=== PATIENT | female | born 1955 | race Caucasian/White ===

== ENCOUNTER 2018-09-26 10:34 | Outpatient (CLI) | payer MEDICARE, SELFPAY ==
[2018-09-26 13:27] LABS: Hemoglobin A1C 6.2 % (4.5-6.2)
[2018-09-29 11:23] LABS: IgA 185 mg/dL (85-499); Interpretation SEE COMMENTS; Tissue Transglutaminase IgA <1.2 U/mL (<4.0)
== END 2018-09-26 10:54 ==
PROVIDERS: PCP Emergency Medicine; Visit Provider Emergency Medicine
DX: E11.9 Type 2 diabetes mellitus without complications (principal); R10.13 Epigastric pain
CPT/HCPCS: 36415; 82784; 83516; 83036

== ENCOUNTER → 2018-12-11 10:38 | Outpatient (BNVA) | payer MEDICARE, SELFPAY | PROVIDERS: PCP Emergency Medicine; Referring Provider Emergency Medicine; Visit Provider Surgery | DX: K59.04 Chronic idiopathic constipation (principal) | CPT/HCPCS: 99212; 99214 ==

== ENCOUNTER → 2019-01-12 08:21 | Outpatient (BNVA) | payer MEDICARE, SELFPAY | PROVIDERS: PCP Emergency Medicine; Referring Provider Emergency Medicine; Visit Provider Surgery | DX: R69 Illness, unspecified (principal) ==

== ENCOUNTER 2019-01-12 09:22 | Outpatient (CLI) | payer MEDICARE, SELFPAY ==
[2019-01-12 09:56] LABS: HCT 41.7 % (36.0-46.0); Mean Corp. HGB Concentration 33.6 g/dL (32.0-36.0); Mean Corpuscular Hemoglobin 28.7 pg (27.0-33.0); Mean Corpuscular Volume 85.5 fL (80-95); Mean Platelet Volume 10.2 fL (8.0-11.0); Platelet Count 286 x1000/uL (130-400); RBC 4.88 m/cumm (4.00-5.20); White Blood Cell Count 7.15 k/cumm (4.4-10.8)
[2019-01-12 10:40] LABS: Anion Gap 10.5 mmol/L (3-11); BUN 16 mg/dL (7-18); CO2 28.5 mmol/L (21.0-32.0); CREATININE 0.82 mg/dL (0.55-1.02); Calcium 8.9 mg/dL (8.5-10.1); Chloride 101 mmol/L (98-107); Glucose 121 mg/dL (70-100); Potassium 3.8 mmol/L (3.5-5.1); Sodium 140 mmol/L (136-145)
== END 2019-01-12 09:42 ==
PROVIDERS: PCP Emergency Medicine; Visit Provider Surgery
DX: K59.00 Constipation, unspecified (principal); Z80.0 Family history of malignant neoplasm of digestive organs; Z86.010 Personal history of colon polyps
CPT/HCPCS: 36415; 80048; 85027; 99212

== ENCOUNTER 2019-01-26 07:26 | Outpatient (CLI) | payer MEDICARE, SELFPAY | END 2019-01-26 07:46 | PROVIDERS: PCP Emergency Medicine; Visit Provider Surgery | DX: Z01.810 Encounter for preprocedural cardiovascular examination (principal) | CPT/HCPCS: 93005; 93010 ==

== ENCOUNTER 2019-01-30 06:57 | Day surgery (SDC) | payer MEDICARE, SELFPAY ==
[2019-01-30 07:11] VITALS: BP 143/104; PULSE 105; RESP 18; TEMP 36.7; O2SAT 94
[2019-01-30] MEDS: Lactated Ringers 1,000 ML 80 ML IV (07:45)
--- NOTE | 2019-01-30 08:32 | BOWEL_PTH ---
PATIENT: Genoveva Peña LOC: [facility] U#:[id number] AGE/SX: 63/F ROOM: RE01/30/[address]: Cecy Carlson : 1955 BED: DIS: 01/30/2019 SPEC #: [id number] RECD: 01/30/19 12:43 STATUS: NICOLE REQ #: [id number] ROSS: 01/30/19 08:[address]: Cecy Carlson DEPT: Surgical Specimen RECD BY: Estefany Aldrich ENTERED: 01/30/19 12:46 SP TYPE: Bowel OTHR DR: Alireza Ojeda DO Tissues: 1 - BIOPSY BOWEL 2 - BIOPSY BOWEL 3 - BIOPSY BOWEL Procedures: GROSS AND MICRO LEVEL 4 Comments: [id number]
--- NOTE | 2019-01-30 08:46 | W.COLOREPORT ---
Date of service: 01/30/19 Time of Service: 08:46 Colonoscopy Report Date of procedure: 01/30/19 Pre-op diagnosis general: A. polyps. 1st degree famly member w/ CRC /celiac Dx./Constipation Post-op diagnosis procedure note: same Procedure: CE and bx Surgeon: Cecy Carlson Anesthesia proc note operative: GETA Estimated blood loss (mL): 2 Pathology: other Complications: None Disposition: same day Prep: Miralax Retraction Time: 10 mins Findings: nl Procedure Description: After informed consent was obtained the patient was taken to the procedure room and placed in a left decubitous position. Monitors were applied and a time out was done. The patients name, date of , procedure, allergies to medications and metal in their body was reviewed. The patient was then sedated. Once sedated and comfortable a rectal exam was done. External exam was normal. Internal exam revealed a normal sphincter tone and no palpable masses. The scope was then introduced and retroflexed. no internal hemorrhoids were identified. The scope was then advanced to the cecum w/out difficulty. The TI and appendiceal orifice were identified. The prep was good. The scope was then slowly retracted over 10 minutes back into the rectum. The scope was removed and the patient was woken up and taken back to Same day surgery in stable condition. There are no polyps/AVM's/diverticula. The mucosal and vascular pattern appear nl. Bx were taken of cecum/40cm/descending/rectum. all specimen and retrieved and no bleeding noted. The patient tolerated the procedure well and there were no immediate complications. Follow up: The patient should follow up in 5 years unless they develop changes in bowel habits or other new gastrointestinal complaints. Pt has been having significant problems w/ constipation. Fiber supplements made her feel gasey and bloated and didn't help. She has tried dulcolax, (which didn't help) and other cathartics. Miralax bothered her stomach and she couldn't tolerate it. I wrote Rx for lactulose today and will try this.
--- NOTE | 2019-01-30 08:56 | W.PM.DSUDISC ---
Discharge Plan Disposition Patient Disposition: HOME Condition: Good Discharge Details Attending Provider: Cecy Carlson Primary Care Provider: Alireza Ojeda Home Meds and New Rx's Prescriptions: New hydrocortisone 2.5 % cream 1 applic TP BID-QID PRN (Reason: rash) Qty: 30 RF: 5 lactulose 10 gram/15 mL solution 10 gm PO DAILY PRN (Reason: constipation) Qty: 500 RF: 6 Continued clobetasol 0.05 % cream 1 applic TP ONCE PRNRF: 0 terbinafine HCl [Lamisil AT] 1 % cream 1 applic TP BID PRNRF: 0 aspirin [Aspirin Low-Strength] 81 MG tablet,chewable 81 mg PO DAILY RF: 0 duloxetine [Cymbalta] 60 MG capsule,delayed release(DR/EC) 60 mg PO DAILY Qty: 90 RF: 4 pravastatin 40 mg tablet 40 mg PO DAILY Qty: 90 RF: 4 omeprazole 40 mg capsule,delayed release(DR/EC) 40 mg PO DAILY Qty: 90 RF: 4 doxepin 10 mg capsule 10 mg PO HS RF: 0 Discharge Instructions Instructions: High Fiber Diet (GEN) Additional Instructions: Findings:normal Bx taken No ASA/NSAIDs for 10 days- Bx taken. tylenol is fine. Follow up: repeat scope in 5 yrs time due to family Hx will send a letter w/ Bx results Please call if you develop: fevers >101.5 Nausea or Vomiting Abdominal pain that is not transient DAY SURGERY UNIT POST COLONOSCOPY INSTRUCTIONS 1. Because there will be medication in your system for the next 24 hours, you may feel a little sleepy. Your coordination will be affected. Therefore: a. Do not drive or operate dangerous equipment for 24 hours. b. Do not drink alcohol beverages for 24 hours (not even beer). c. Plan to go home and rest for the day. 2. Generally there are no restrictions on your activity after a day or so has gone by, but you may feel a bit fatigued for a few days. 3 After you arrive home you may have a light meal and return to a normal diet as you can tolerate it without feeling sick to your stomach. 4. After surgery, you may feel pain or discomfort. This should be only transient, but if it persists please contact your doctor. 5. If there are any questions regarding the findings of your procedure, please feel free to contact your doctor. 6. If you are unable to contact your doctor with a problem, contact the hospital at [phone]. 7. Continue all your regular medications unless directed otherwise. I understand the above instructions and have no questions. Signature of Patient or Responsible Adult Escort Date/Time Name of Responsible Adult Escort Signature of Nurse Date/Time Stand Alone Forms: Colonoscopy Post Instructions, Moy Parham (DSU) Activity:: no strenuous acitivty or heavy liting x 24 hrs Diet:: sm lt meals today. than transition to high fiber diet Discharge Orders Discharge Orders: Discharge Order (Routine); Ordered 01/30/19 Ordered By: Cecy Carlson DS: Diagnosis Discharge Diagnosis (1) Tubular adenoma of colon: Status: Acute (2) Skin sensation disturbance: Status: Acute (3) Constipation by delayed colonic transit: Status: Acute (4) Family history of colon cancer: Status: Acute (5) Celiac disease: Status: Chronic
[2019-01-30 09:20] VITALS: BP 129/88; PULSE 79; RESP 16; TEMP 36.4; O2SAT 94
== END 2019-01-30 09:40 | disposition home or self-care (01) ==
PROVIDERS: PCP Emergency Medicine; Visit Provider Surgery
PROC: 0DJD8ZZ Inspection of Lower Intestinal Tract, Via Natural or Artificial Opening Endoscopic (ICD-10-PCS; CPT 45378; principal; 2019-01-30 08:15)
DX: K59.00 Constipation, unspecified (principal); K90.0 Celiac disease; Z80.0 Family history of malignant neoplasm of digestive organs; Z86.010 Personal history of colon polyps; G47.33 Obstructive sleep apnea (adult) (pediatric); K21.9 Gastro-esophageal reflux disease without esophagitis
CPT/HCPCS: 45380; 88305

== ENCOUNTER 2019-06-03 08:48 | Outpatient (CLI) | payer MEDICARE, SELFPAY ==
--- NOTE | 2019-06-03 08:27 | DI.RAD_ITS ---
SYMPTOMS/DIAGNOSIS: RIGHT SHOULDER PAIN RIGHT SHOULDER: There is mild spurring at the AC joint and undersurface of the acromion, as well as glenoid. Glenohumeral joint space is well maintained. No tendon or joint space calcifications are seen. IMPRESSION: Mild degenerative changes.
== END 2019-06-03 09:08 ==
PROVIDERS: PCP Emergency Medicine; Referring Provider Emergency Medicine; Visit Provider Student in an Organized Health Care Education/Training Program
DX: M25.511 Pain in right shoulder (principal); M19.011 Primary osteoarthritis, right shoulder; S46.011A Strain of muscle(s) and tendon(s) of the rotator cuff of right shoulder, initial encounter; X58.XXXA Exposure to other specified factors, initial encounter; M54.12 Radiculopathy, cervical region; M75.21 Bicipital tendinitis, right shoulder
CPT/HCPCS: 99203; 99214; 73030

== ENCOUNTER → 2019-07-22 08:05 | Outpatient (BNVA) | payer MEDICARE, SELFPAY | PROVIDERS: PCP Emergency Medicine; Referring Provider Emergency Medicine; Visit Provider Student in an Organized Health Care Education/Training Program | DX: M25.511 Pain in right shoulder (principal); S46.011D Strain of muscle(s) and tendon(s) of the rotator cuff of right shoulder, subsequent encounter; X58.XXXD Exposure to other specified factors, subsequent encounter | CPT/HCPCS: 99213 ==

== ENCOUNTER 2020-05-13 14:08 | Outpatient (CLI) | payer MEDICARE, SELFPAY ==
--- NOTE | 2020-05-13 10:09 | DI.RAD_ITS ---
EXAM: XR FOOT LT COMPLETE CLINICAL HISTORY: contusion to foot lt, S90.32XA. TECHNIQUE: 2D digital imaging was performed. COMPARISON: No exams were available for comparison FINDINGS: BONES: No acute fracture is present. No bony destructive lesion is seen. JOINTS: No dislocation present. Yeuo-ju-eedtpugk degenerative changes are seen in the foot characteri zed by joint space narrowing, subchondral sclerosis and periarticular spurring. SOFT TISSUE: Normal. IMPRESSION: No acute fracture or dislocation. DATA REPOSITORY: RADIATION DOSE DELIVERED:
== END 2020-05-13 14:28 ==
PROVIDERS: PCP Emergency Medicine; Visit Provider Nurse Practitioner
DX: S90.32XA Contusion of left foot, initial encounter (principal)
CPT/HCPCS: 73630

== ENCOUNTER 2020-06-01 09:40 | Outpatient (CLI) | payer MEDICARE, SELFPAY ==
--- NOTE | 2020-06-01 09:22 | DI.RAD_ITS ---
EXAM: XR FOOT LT COMPLETE CLINICAL HISTORY: left foot pain. TECHNIQUE: 2D digital imaging was performed. COMPARISON: CR XR FOOT LT COMPLETE from 05/13/2020 FINDINGS: Hgyx-ma-wijgtysb degenerative changes are seen in the left characterized by joint space narrowing, adams bchondral sclerosis and periarticular spurring. The findings are most marked at the interphalangeal joints of the foot. There is a small spur at the plantar surface of the calcaneus. There is a large enthesophyte at the posterior calcaneus. No acute fracture or dislocation is seen. The soft tissue s are unremarkable. IMPRESSION: Degenerative changes of the left foot. DATA REPOSITORY: RADIATION DOSE DELIVERED:
== END 2020-06-01 10:00 ==
PROVIDERS: PCP Emergency Medicine; Referring Provider Emergency Medicine; Visit Provider Student in an Organized Health Care Education/Training Program
DX: M19.072 Primary osteoarthritis, left ankle and foot (principal); S90.32XA Contusion of left foot, initial encounter; X58.XXXA Exposure to other specified factors, initial encounter; M25.511 Pain in right shoulder; M79.641 Pain in right hand; M79.642 Pain in left hand
CPT/HCPCS: 99214; 73630

== ENCOUNTER → 2020-07-20 10:07 | Outpatient (BNVA) | payer MEDICARE, SELFPAY | PROVIDERS: PCP Emergency Medicine; Referring Provider Emergency Medicine; Visit Provider Student in an Organized Health Care Education/Training Program | DX: M70.62 Trochanteric bursitis, left hip; S90.32XD Contusion of left foot, subsequent encounter; X58.XXXD Exposure to other specified factors, subsequent encounter | CPT/HCPCS: 99214 ==

== ENCOUNTER 2020-11-08 02:01 | Outpatient (CLI) | payer MEDICARE, SELFPAY ==
[2020-11-09 15:18] LABS: COVID-19 RT-PCR UVMMC Result Negative (Negative)
== END 2020-11-08 02:02 | disposition home or self-care (01) ==
LOC: LBO 02:01
PROVIDERS: PCP Emergency Medicine; Visit Provider Nurse Practitioner
DX: Z20.822 Contact with and (suspected) exposure to COVID-19 (principal); Z01.818 Encounter for other preprocedural examination
CPT/HCPCS: U0003; U0005

== ENCOUNTER 2020-12-09 02:46 | Outpatient (CLI) | payer MEDICARE, SELFPAY ==
[2020-12-09 12:50] LABS: Ferritin 30 ng/mL (8-252)
== END 2020-12-09 02:47 | disposition home or self-care (01) ==
LOC: LBO 02:46
PROVIDERS: PCP Emergency Medicine; Visit Provider Nurse Practitioner
DX: M25.561 Pain in right knee (principal)
CPT/HCPCS: 36415; 82728

== ENCOUNTER 2021-01-02 14:50 | Outpatient (REF) | payer MEDICARE, SELFPAY ==
[2021-01-04 18:07] LABS: COVID-19 RT-PCR UVMMC Result Negative (Negative)
== END 2021-01-02 14:51 | disposition home or self-care (01) ==
LOC: LBN 14:50
PROVIDERS: PCP Emergency Medicine; Visit Provider Family Medicine
DX: Z20.822 Contact with and (suspected) exposure to COVID-19 (principal); J06.9 Acute upper respiratory infection, unspecified
CPT/HCPCS: U0003

== ENCOUNTER 2021-01-18 02:59 | Outpatient (CLI) | payer MEDICARE, SELFPAY ==
[2021-01-18 13:25] LABS: Hemoglobin A1C 5.6 % (<5.7)
[2021-01-18 13:26] LABS: ALT 39 U/L (14-59); AST 36 U/L (15-37); Albumin 3.6 g/dL (3.4-5.0); Alkaline Phosphatase 88 U/L (46-116); Anion Gap 5.2 mmol/L (3-11); BUN 19 mg/dL (7-18); Bilirubin, Total 0.3 mg/dL (0.2-1.0); CO2 30.8 mmol/L (21.0-32.0); CREATININE 0.8 mg/dL (0.55-1.02); Calcium 8.4 mg/dL (8.5-10.1); Calculated LDL 108 mg/dL (<100); Chloride 107 mmol/L (98-107); Cholesterol 181 mg/dL (<200); Glucose 94 mg/dL (74-106); HDL Cholesterol 53 mg/dL (40-60); Sodium 143 mmol/L (136-145); Total Protein 7.8 g/dL (6.4-8.2); Triglyceride 104 mg/dL (<150)
== END 2021-01-18 03:00 | disposition home or self-care (01) ==
LOC: LOS 03:00
PROVIDERS: PCP Emergency Medicine; Visit Provider Nurse Practitioner Family
DX: E78.5 Hyperlipidemia, unspecified (principal); R73.03 Prediabetes
CPT/HCPCS: 36415; 80053; 80061; 83036

== ENCOUNTER 2021-04-28 03:06 | Outpatient (CLI) | payer MEDICARE, SELFPAY ==
[2021-04-28 08:54] LABS: Ferritin 60 ng/mL (8-252)
== END 2021-04-28 03:07 | disposition home or self-care (01) ==
LOC: LBO 03:06
PROVIDERS: PCP Nurse Practitioner Family; Visit Provider Nurse Practitioner
DX: M25.561 Pain in right knee (principal)
CPT/HCPCS: 36415; 82728

== ENCOUNTER 2021-06-08 01:33 | Outpatient (CLI) | payer MEDICARE, SELFPAY ==
--- NOTE | 2021-06-08 08:45 | DI.DEXA_ITS ---
Exam(s) XR DEXA BONE DENSITY W/WO JOAN EXAM: XR DEXA BONE DENSITY W/WO JOAN CLINICAL HISTORY: Osteopenia, last dexa 2008,SCREENING FOR OSTEOPOROSIS IN POSTMENOPAUSAL TECHNIQUE: Routine DEXA evaluation of the lumbar spine, hip, or forearm. COMPARISON: CR LUMBAR SPINE COMPLETE from 11/06/2011 Prior DEXA scan August 2009 FINDINGS: Performed on a [employer] unit. Lateral image: No compression fracture evident. Lumbar Spine total T-score: -1.2 . Prior 2008 reading was -1.0 Hip total T-score:-2.1. Prior 2008 reading was -1.8 Independent reading at the femoral neck level yields a T-score of -2.2. Forearm total T-score: -3.1 IMPRESSION: Bone mineral density measures in the osteopenia-osteoporosis range. Fracture risk is moderate-high. Note: Any spine fracture indicates 5x risk for subsequent spine fracture and 2x risk for subsequent h ip fracture. World Health Organization criteria for BMD interpretation classify patients: Normal...... T- Score at or above -1.0 Osteopenic... T- Score between -1.0 and -2.5 Osteoporosis... T-Score at or below -2.5
--- NOTE | 2021-06-08 08:45 | DI.MAMMO_ITS ---
Exam(s) MAMMO SCREENING EXAM: MAMMO SCREENING CLINICAL HISTORY: screening,Z12.39. TECHNIQUE: Bilateral full field digital CC and MLO mammographic images were obtained with 3D tomosyn thesis and utilizing computer aided detection (CAD). COMPARISON: Prior mammograms dating back to 2011, the most recent being 2017. Significant family history. Her sister was diagnosed with breast cancer in her 40s. FINDINGS: Benign-appearing lymph nodes in the upper-outer quadrant of the left breast are unchanged from prior studies. There are no new spiculated masses nor malignant appearing microcalcification groups. There is no significant architectural distortion nor skin thickening-retraction. IMPRESSION: No radiographic evidence of malignancy. BI-RADS Category 1 - Negative Breast Density - Category B - Scattered areas of fibroglandular density Breast density Category C or D implies that the patient has dense breast tissue. Dense breast tissue can make it harder to find cancer on a mammogram. Dense breast tissue is also associated with an incr eased risk of breast cancer. This information about the result of the mammogram report was provided to the patient to raise their awareness. Use this report when you speak with the patient about their risks for breast cancer, which includes their family history. At that time, you may recommend additional screening tests (Ultrasoun d or MRI) as these tests may add significant information. A negative radiographic report should not delay biopsy if a dominant or clinically suspicious mass is present. Up to ten percent of cancers are not identified on mammography. A negative report may reinforce clinical impression. Adenosis and dense breasts may obscure an underlying neoplasm. False positive reports average 6 to 10%. Patient will receive a letter notifying them of these results.
== END 2021-06-08 01:53 ==
PROVIDERS: PCP Nurse Practitioner Family; Visit Provider Nurse Practitioner Family
DX: M85.89 Other specified disorders of bone density and structure, multiple sites (principal); Z78.0 Asymptomatic menopausal state; Z12.31 Encounter for screening mammogram for malignant neoplasm of breast; M81.0 Age-related osteoporosis without current pathological fracture
CPT/HCPCS: 77063; 77067; 77080

== ENCOUNTER 2022-01-02 15:37 | Outpatient (REF) | payer OTHER, SELFPAY ==
[2022-01-12 10:21] LABS: Fungus Smear No Fungi Seen
== END 2022-01-02 15:38 | disposition home or self-care (01) ==
LOC: LBN 15:37
PROVIDERS: PCP Nurse Practitioner Family; Visit Provider Family Medicine
DX: B37.0 Candidal stomatitis (principal)
CPT/HCPCS: 87102; 87206

== ENCOUNTER 2022-01-29 02:31 | Outpatient (CLI) | payer OTHER, SELFPAY ==
[2022-01-29 12:27] LABS: HCT 40.9 % (36.0-46.0); HGB 13.3 g/dL (11.2-15.7); MCH 28.1 pg (27.0-33.0); MCHC 32.5 % (32.0-36.0); MCV 87 fL (80-95); MPV 10.2 fL (8.0-11.0); Platelet Count 244 10^3/uL (130-400); RBC 4.73 10^6/uL (3.93-5.22); RDW 12.9 % (11.7-14.6); RDW-SD 40.8 fL; WBC 8.13 10^3/uL (4.4-10.8)
[2022-01-29 13:43] LABS: ALT 81 U/L (14-59); AST 63 U/L (15-37); Albumin 3.8 g/dL (3.4-5.0); Alkaline Phosphatase 111 U/L (46-116); Anion Gap 7.9 mmol/L (3-11); BUN 16 mg/dL (7-18); Bilirubin, Total 0.3 mg/dL (0.2-1.0); CO2 29.1 mmol/L (21.0-32.0); CREATININE 0.8 mg/dL (0.55-1.02); Calcium 8.6 mg/dL (8.5-10.1); Calculated LDL 117 mg/dL (<100); Chloride 103 mmol/L (98-107); Cholesterol 204 mg/dL (<200); Glucose 105 mg/dL (74-106); HDL Cholesterol 59 mg/dL (40-60); Potassium 4.4 mmol/L (3.5-5.1); Sodium 140 mmol/L (136-145); TSH (W/Ref FT4) 0.83 uIU/mL (0.36-3.74); Total Protein 8.3 g/dL (6.4-8.2); Triglyceride 141 mg/dL (<150)
[2022-01-30 10:41] LABS: HIV-1/2 Ag & Ab Screen Negative (Negative)
[2022-01-30 10:51] LABS: Hepatitis C Ab w Rflx HCV PCR Negative (Negative)
== END 2022-01-29 02:32 | disposition home or self-care (01) ==
LOC: LBO 02:31
PROVIDERS: PCP Nurse Practitioner Family; Visit Provider Family Medicine
DX: B37.0 Candidal stomatitis (principal); E78.5 Hyperlipidemia, unspecified; K90.0 Celiac disease; R53.83 Other fatigue; Z11.59 Encounter for screening for other viral diseases; Z13.6 Encounter for screening for cardiovascular disorders; I10 Essential (primary) hypertension; Z11.4 Encounter for screening for human immunodeficiency virus [HIV]
CPT/HCPCS: 36415; 80053; 80061; 85027; 86803; 87102; 87206; 87389; 84443

== ENCOUNTER 2022-03-22 10:31 | Emergency (ER) | payer OTHER, SELFPAY ==
[2022-03-22] VITALS (37 sets, daily range): BP systolic 119–153; BP diastolic 45–86; PULSE 47–94; RESP 0–34; TEMP 36.5–37.3; O2SAT 95–99
--- NOTE | 2022-03-22 11:00 | RT.EKG_ITS ---
APPROVED REPORT Exam: Resting ECG Reason for Exam: left sided arm pain Patient Location: E HR:59 bpm ECG Measurements Heart Rate 59 AXIS WY 184 P 38 QRSd 100 QRS -53 QT 438 T 25 QTc 435 Conclusion Bradycardia with irregular rate...V-rate 45- 72, mean < 60 LAD, consider left anterior fascicular block...axis(240,-40), S>R II III aVF Low voltage, precordial leads...precordial leads <1.0mV. Sinus with rate variation. No STEMI. I have reviewed and interpreted ECG and agree with software generated interpretation.
--- NOTE | 2022-03-22 11:00 | DI.CT_ITS ---
Exam(s) CT HEAD - STROKE PROTOCOL EXAM: CT HEAD - STROKE PROTOCOL CLINICAL HISTORY: left sided weakness. TECHNIQUE: Imaging Protocol: Axial computed tomography images with coronal and sagittal reformatted images were created and reviewed COMPARISON: CT HEAD WITHOUT CONTRAST from 10/30/2014 FINDINGS: Ventricles and Extra axial spaces: Normal in size and morphology for the patient's age. Hemorrhage: None. Cerebral parenchyma: Normal. Midline shift: None. Brainstem/Cerebellum: Normal. Calvarium: Normal. Visualized Paranasal sinuses/Mastoids: Clear. Soft Tissues: Unremarkable. IMPRESSION: No acute intracranial process. Results of this exam have been verbally communicated with emergency department provider. RADIATION DOSE DELIVERED: 743.43mGy.cm Total DLP DATA REPOSITORY: All CT scans at this facility are submitted to the National Radiology Data Registry (NRDR) Dose Index Registry (DIR) with the [employer] (ACR). RADIATION OPTIMIZATION: All CT scans at this facility use at least one of these dose optimization te chniques: automated exposure control; mA and/or kV adjustment per patient size (includes targeted exa ms where dose is matched to clinical indication); or iterative reconstruction.
--- NOTE | 2022-03-22 11:45 | DI.MRI_ITS ---
Exam(s) MR BRAIN WO EXAM: MR BRAIN WO CLINICAL HISTORY: Left sided weakness and headache TECHNIQUE: Multiplanar multisequence MRI of the brain was performed. COMPARISON: MR MRI - BRAIN WO CONTRAST from 11/22/2011 MR MRA HEAD WO from 11/22/2011 FINDINGS: VENTRICLES AND EXTRA AXIAL SPACES: Normal in size and morphology for the patient's age. MIDLINE SHIFT: None. CEREBRAL PARENCHYMA: No focus of restricted diffusion to suggest acute infarct. No space-occupying le marlene identified. Mild scattered high signal foci likely reflecting microvascular changes. HEMORRHAGE: None. BRAINSTEM/CEREBELLUM: Normal. CALVARIUM: Normal. VISUALIZED PARANASAL SINUSES/MASTOIDS:Clear. [place] [employer]: Normal flow void. PITUITARY GLAND: Unremarkable. IMPRESSION: Minimal white matter changes of small vessel disease. No evidence of acute infarct.. Results of this exam have been verbally communicated with emergency department provider. DATA REPOSITORY:
[2022-03-22 11:47] LABS: Abs Immature Grans 0.01 10^3/uL (0.0-0.06); Absolute Basophil Count 0.06 10^3/uL (0.0-0.2); Absolute Eosinophil Count 0.11 10^3/uL (0.0-0.7); Absolute Lymphocyte Count 3.15 10^3/uL (1.2-3.4); Absolute Monocyte Count 0.65 10^3/uL (0.1-0.8); Absolute Neutrophil Count 2.39 10^3/uL (1.2-6.7); Basophils % 0.9; Eosinophils % 1.7; HCT 42.2 % (36.0-46.0); HGB 13.7 g/dL (11.2-15.7); Immature Grans % 0.2; Lymphocytes % 49.5; MCH 28.1 pg (27.0-33.0); MCHC 32.5 % (32.0-36.0); MCV 87 fL (80-95); Monocytes % 10.2; Neutrophils % 37.5; RBC 4.87 10^6/uL (3.93-5.22); RDW-SD 41.1 fL; WBC 6.37 10^3/uL (4.4-10.8)
[2022-03-22 12:10] LABS: ALT 85 U/L (14-59); AST 76 U/L (15-37); Alkaline Phosphatase 89 U/L (46-116); Anion Gap 8.6 mmol/L (3-11); BUN 18 mg/dL (7-18); Bilirubin, Total 0.4 mg/dL (0.2-1.0); CO2 27.4 mmol/L (21.0-32.0); CREATININE 0.7 mg/dL (0.55-1.02); Calcium 8.9 mg/dL (8.5-10.1); Chloride 101 mmol/L (98-107); Glucose 78 mg/dL (74-106); Magnesium 2.1 mg/dL (1.8-2.4); Potassium 3.9 mmol/L (3.5-5.1); Sodium 137 mmol/L (136-145); Total Protein 8.4 g/dL (6.4-8.2); Troponin I < 50 ng/L (<or=60)
--- NOTE | 2022-03-22 12:21 | ED.GENADUL_ITS ---
Discharge Plan Disposition Patient Disposition: HOME Condition: Improving Discharge Details Clinical Impression: Left arm pain Primary Care Provider: Sanam Bennett ED Provider: Octavio Mcdermott Home Meds and New Rx's Prescriptions: No Action diclofenac sodium [Voltaren] 1 % gel 2 gm TP QID PRN Rx Instructions: apply to single elbow, wrist or hand; for hand includes palm/fingers/back of hand Shingrix (PF) 50 mcg/0.5 mL suspension for reconstitution 0.5 ml IM ONCE Qty: 1 0RF Rx Instructions: 2 doses 2 mo apart ropinirole 2 mg tablet 2 mg PO QHS clobetasol 0.05 % cream 1 applic TP DAILY PRN (Reason: rash) Qty: 30 0RF terbinafine HCl [Lamisil AT] 1 % cream 1 applic TP BID PRN aspirin [Aspirin Low-Strength] 81 MG tablet,chewable 81 mg PO DAILY baclofen 5 mg tablet 5 mg PO BID PRN (Reason: back pain) Qty: 60 0RF doxepin 10 mg capsule 10 mg PO HS Qty: 90 3RF ferrous sulfate 325 mg (65 mg iron) tablet 325 mg PO Q OTHER DAY Qty: 90 4RF Rx Instructions: Take 1 tablet every other day omeprazole 40 mg capsule,delayed release(DR/EC) 40 mg PO DAILY Qty: 90 4RF nystatin 100,000 unit/mL suspension 5 ml PO QID Qty: 200 0RF Rx Instructions: swish and swallow triamcinolone acetonide 0.5 % cream 1 applic topical BID Qty: 80 2RF pravastatin 40 mg tablet 40 mg PO DAILY Qty: 90 4RF duloxetine 60 mg capsule,delayed release(DR/EC) See Rx Instructions .ROUTE .COMPLEX Qty: 90 3RF Dose Instruction: TAKE 1 CAPSULE BY MOUTH DAILY Rx Instructions: TAKE 1 CAPSULE BY MOUTH DAILY Discharge Instructions Instructions: Arm Pain (ED) Additional Instructions: It is reassuring at this time that your CT and MRI were unremarkable along with your labs. Your urine did show subtle signs of a slight infection versus a contaminated specimen. We will contact you if this does look like an infection and you need any treatment. Otherwise please continue to take your normally prescribed medications and return to the emergency department for any new or significant worsening of your symptoms. I suspect your arm pain is not from a new stroke or neurological event that from lifting your elderly mother 2 days ago. If you do again have concerns feel free to return to emergency department or follow-up with your primary care provider for reassessment. Referrals: Sanam Bennett NP [Primary Care Provider] - Discharge Data Discharge Date/Time-TO BE ENTERED AT DEPARTURE: 03/22/22 15:58 Medical Decision Making Patient presenting to the emergency department for chief complaint of left arm discomfort. She states that this started yesterday evening at 730 and has been persistent since. She does state that she had some radiation of the discomfort from her upper arm into her lower arm and also into her leg. She states some left-sided abnormal sensation around her lips and some confusion. Patient denies any injury or trauma but does state this is similar to when she had previous TIAs. Physical exam does show weakness to the left upper extremity without full pronator drift, decreased senior accounting specialist strength, sensation and movement intact and no cranial nerve or other neurologic findings. I am concerned for TIA versus stroke. Patient is outside the window for thrombolytics but will co ntinue with CT imaging and MR imaging as needed. We will also check labs. Please see physician interpretation for review of EKG that shows sinus rhythm with no acute worrisome findings. Review of CT imaging shows no acute findings. Discussed with radiologist MR imaging which she agreed and orders were placed. Review of labs shows an unremarkable CBC, CMP shows slight elevation of AST and ALT were elevated but not far from baseline. Urinalysis shows positive nitrites and trace leukocytes with 5-10 WBCs. Patient denies any urinary symptoms so will wait on reflective culture before treating. Initial troponin is negative. Patient still pending MRI You have MRI imaging with radiologist shows no acute ischemic findings. Again reassessed patient and she stated continued left arm pain. Discussed with patient any potential injuries and she does state that the baby for symptoms started her mother did have a fall on the floor and she attempted to lift her from the floor which then she started to fall again. She states this aggravated her chronic back pain but did not seem to associate this with arm pain but is a possibility. Patient is now tender over the deep venous system of the upper arm so we will perform ultrasound imaging that we are pending second troponin. Given potential injury that is more muscular in nature will give patient ketorolac. Reviewed second troponin which was negative along with ultrasound imaging which is also negative. Reassessed patient and patient now has full resolution of symptoms, no weakness to upper extremities, no further pain or discomfort. Given no acute findings on any imaging or worrisome lab findings I suspect more occult injury versus TIA. Did discuss with patient close monitoring of symptoms along with return and follow-up precautions. Patient does state that she would prefer to go home and watch symptoms given history of TIA but question if today's episode was this or not. Patient states that she would prefer to go home and states clear understanding to return for new or worsening symptoms. After discussion of diagnosis and plan of care patient has no further needs, questions, or concerns and states clear understanding to return to the emergency department for any worsening symptoms. This documentation was generated using [employer] dictation system, please disregard any oddities of phrase or misspellings. Medical Records Medical records reviewed: Yes I reviewed the patient's medical records. Imaging Data Radiologic Study: Imaging: CT Scan Radiologist's impression: FINDINGS: Ventricles and Extra axial spaces: Normal in size and morphology for the patient's age. Hemorrhage: None. Cerebral parenchyma: Normal. Midline shift: None. Brainstem/Cerebellum: Normal. Calvarium: Normal. Visualized Paranasal sinuses/Mastoids: Clear. Soft Tissues: Unremarkable. IMPRESSION: No acute intracranial process. Results of this exam have been verbally communicated with emergency department provider. Radiologic Study #3: Imaging: Ultrasound Radiologist's impression: FINDINGS: The left internal jugular, axillary, subclavian, cephalic, basilic, brachial, radial, and ulnar veins are patent without evidence of thrombosis. IMPRESSION: No DVT. Radiologic Study #2: Imaging: MRI Radiologist's impression: FINDINGS: VENTRICLES AND EXTRA AXIAL SPACES: Normal in size and morphology for the patient's age. MIDLINE SHIFT: None. CEREBRAL PARENCHYMA: No focus of restricted diffusion to suggest acute infarct. No space-occupying lesion identified. Mild scattered high signal foci likely reflecting microvascular changes. HEMORRHAGE: None. BRAINSTEM/CEREBELLUM: Normal. CALVARIUM: Normal. VISUALIZED PARANASAL SINUSES/MASTOIDS:Clear. [place]: Normal flow void. PITUITARY GLAND: Unremarkable. IMPRESSION: Minimal white matter changes of small vessel disease. No evidence of acute infarct.. Results of this exam have been verbally communicated with emergency department provider. Lab Data Lab results reviewed: Yes I reviewed the patient's lab results. HPI General Mode of arrival: ambulatory . Date/Time Provider Initiated Documentation: 03/22/22 11:00 . Limitations to Documentation: no limitations . Information obtained by: patient and RN notes reviewed . History of Present Illness 67 year old F presents to the emergency department with the chief complaint of Left arm pain, described as moderate, with intensity rated at 6. Quality is described as aching, and is localized to the left and upper extremity. Patient distal. Patient started experiencing this day(s) (1) and it has been constant. No relieving factors improve symptom(s), Movement worsens symptoms . Patient notes no other symptoms. and weakness. Patient did receive the following treatments prior to arrival, none Related Data Home Medications Medication Instructions Recorded Confirmed aspirin 81 mg chewable tablet 81 mg PO DAILY 02/02/14 03/22/22 (Aspirin Low-Strength) terbinafine HCl 1 % topical cream 1 applic topical BID PRN 01/12/19 03/22/22 (Lamisil AT) diclofenac sodium 1 % topical gel 2 gm topical QID PRN 05/12/20 03/22/22 (Voltaren) ropinirole 2 mg tablet 2 mg PO QHS 02/10/21 03/22/22 varicella-zoster glycoE [id number] 0.5 ml IM ONCE #1 ea 02/10/21 01/02/22 adj(PF) 50 mcg/0.5 mL IM susp, kit (Shingrix (PF)) baclofen 5 mg tablet 5 mg PO BID PRN back pain #60 tabs 05/01/21 03/22/22 doxepin 10 mg capsule 10 mg PO HS #90 caps 06/21/21 03/22/22 ferrous sulfate 325 mg (65 mg 325 mg PO Q OTHER DAY #90 tabs 06/21/21 03/22/22 iron) tablet omeprazole 40 mg capsule,delayed 40 mg PO DAILY #90 tab-caps 06/30/21 03/22/22 release clobetasol 0.05 % topical cream 1 applic topical DAILY PRN rash 01/02/22 03/22/22 #30 grams nystatin 100,000 unit/mL oral 5 ml PO QID #200 mL 01/16/22 suspension triamcinolone acetonide 0.5 % 1 applic topical BID #80 grams 02/08/22 03/22/22 topical cream pravastatin 40 mg tablet 40 mg PO DAILY #90 tab-caps 03/02/22 03/22/22 duloxetine 60 mg capsule,delayed See Rx Instructions .Route 03/09/22 03/22/22 release .COMPLEX #90 caps Previous Rx's Medication Instructions Recorded varicella-zoster glycoE [id number] 0.5 ml IM ONCE #1 ea 02/10/21 adj(PF) 50 mcg/0.5 mL IM susp, kit (Shingrix (PF)) baclofen 5 mg tablet 5 mg PO BID PRN back pain #60 tabs 05/01/21 doxepin 10 mg capsule 10 mg PO HS #90 caps 06/21/21 ferrous sulfate 325 mg (65 mg 325 mg PO Q OTHER DAY #90 tabs 06/21/21 iron) tablet omeprazole 40 mg capsule,delayed 40 mg PO DAILY #90 tab-caps 06/30/21 release clobetasol 0.05 % topical cream 1 applic topical DAILY PRN rash 01/02/22 #30 grams nystatin 100,000 unit/mL oral 5 ml PO QID #200 mL 01/16/22 suspension triamcinolone acetonide 0.5 % 1 applic topical BID #80 grams 02/08/22 topical cream pravastatin 40 mg tablet 40 mg PO DAILY #90 tab-caps 03/02/22 duloxetine 60 mg capsule,delayed See Rx Instructions .Route 03/09/22 release .COMPLEX #90 caps Allergies Allergy/AdvReac Type Severity Reaction Status Date / Time lisinopril AdvReac Intermediate COUGH Verified 03/22/22 11:19 morphine AdvReac Intermediate Visual Verified 03/22/22 11:19 Disturbances gabapentin AdvReac nightmares Verified 03/22/22 11:19 General Stated Complaint: CVA/TIA LONI: 3 Review of Systems Constitutional Constitutional: Denies chills, Denies fever(s), Reports headache(s), Denies lethargy and Denies malaise Eyes Eyes: Denies change in vision ENT Ears, Nose, Mouth, and Throat: Denies change in voice, Denies dysphagia, Denies vertigo, Denies dizziness, Reports headache(s), Denies nasal congestion, Denies neck pain, Denies disequilibrium and Denies sore throat Cardiovascular Cardiovascular: Denies chest pain, Denies syncope and Denies dyspnea Respiratory Respiratory: Denies cough and Denies dyspnea Gastrointestinal Gastrointestinal: Denies abdominal pain, Denies dysphagia, Denies diarrhea, Denies nausea and Denies vomiting Musculoskeletal Musculoskeletal: Reports back pain (chronic), Denies myalgias and Denies neck pain Integumentary/Breasts Skin/Breast: Denies rash Neurologic Neurologic: Reports as per HPI, Denies vertigo, Denies dizziness, Denies syncope, Reports headache(s), Reports localized weakness, Denies radicular pain, Denies sensory deficit, Denies paresthesias and Denies disequilibrium Psychiatric Psychiatric: Denies anxiety PFSH All Active Problems Left arm pain (Acute) Elevated liver function tests (Acute) 01/2022-mildly elevated transaminases Obstructive sleep apnea syndrome (Chronic) Hyperlipidemia (Chronic) Celiac disease (Chronic) Depressive disorder (Chronic) Osteopenia (Chronic) Gastroesophageal reflux disease (Chronic) Primary fibromyalgia syndrome (Chronic) Osteoarthritis (Chronic) Insomnia (Chronic) Lichen sclerosus of vulva (Chronic) Constipation by delayed colonic transit (Chronic) Restless leg syndrome (Chronic) Medical History Basal cell carcinoma (BCC) of left religion region Essential hypertension Prediabetes Primary malignant neoplasm of ovary Found on pathology from [facility], oophrectomy done for AUB Tubular adenoma of colon 2015 Surgical History History of carpal tunnel surgery Bilateral History of esophagogastroduodenoscopy (EGD) Hx of cataract surgery S/P abdominal hysterectomy (~2005) S/P arthroscopy of right shoulder S/P bilateral oophorectomy (~2005) S/P cervical discectomy S/P cholecystectomy S/P colonoscopy S/P tubal ligation (~2001) Status post right partial knee replacement (~2003) Family History Mother Colon cancer Diabetes Heart disease Father Colon cancer Diabetes Dementia Sister No problems noted. Sister Breast cancer Pancreatic cancer Sister Hypertension Sister Essential thrombocytosis Daughter Endometriosis Maternal Grandfather Cancer Unknown type Maternal Grandmother Cancer Unknown type Paternal Grandfather Cancer Unknown type Paternal Grandmother Leukemia Social History Smoking/Tobacco Use Status: Never Smoking risk assessment performed?: Yes Alcohol Intake: never Drug use: Never Substance use type: does not use Current gender identity: female Duration: 15-30 minutes/day Frequency: 5-6 times per week Seatbelt use: always Do you feel safe at home: Yes Do you feel safe in your relationship?: Yes History History 3 Para 1 Hx # Term Pregnancies Multiple births Hx # Pregnancies Ectopic pregnancies AB induced Hx Number of Living Children 1 AB spontaneous 2 Exam Const General: cooperative, healthy appearing, no acute distress and well groomed Orientation: alert, awake and oriented x3 HENMT Head: normal to inspection Ears: hearing grossly normal bilaterally and TM's normal bilaterally Mouth: oral mucosae normal and moist mucous membranes Throat: posterior oropharynx normal Eyes Visual Santos: normal visual santos by confrontation Alignment and Position: alignment normal Periorbital: periorbital findings normal Eyelids: eyelids normal Sclera: sclerae normal Pupils: PERRL EOM: EOM intact bilaterally Neck Neck: normal visual inspection, full ROM and no meningeal signs Resp Effort & Inspection: normal respiratory effort and able to speak in complete sentences Auscultation: clear to auscultation bilaterally Cardio Rate: regular rate Rhythm: regular rhythm Heart Sounds: S1 normal and S2 normal Neuro General: patient alert, patient awake, patient oriented x3, gait normal, tone normal, moves all extremities, CN's II-XI intact bilaterally and not confused Cognition: normal cognition Speech: speech normal Motor: muscle tone normal throughout, strength 5/5 throughout, no pronator drift, no movement abnormalities noted and no fasciculations Sensory Exam: no sensory deficits noted Coordination: [id number] test normal, Romberg test normal, Does not sway with eyes open, rapid alternating movement UE normal and rapid alternating movement LE normal Course Vital Signs Vital signs: Vital Signs Temperature 37.3 C 03/22/22 10:53 Pulse 60 03/22/22 10:53 Respiratory Rate 16 03/22/22 10:53 Blood Pressure 137/72 03/22/22 10:53 Pulse Oximetry 98 03/22/22 10:53 Temperature 37.3 C 03/22/22 10:53 Pulse 60 03/22/22 10:53 Respiratory Rate 16 03/22/22 11:02 Respiratory Effort 06/23/22 11:02 Respiratory Depth Normal 03/22/22 11:02 Respiratory Pattern Normal 03/22/22 11:02 Blood Pressure 137/72 03/22/22 10:53 Pulse Oximetry 98 03/22/22 10:53 Oxygen Delivery Method Room Air 03/22/22 10:53 Oxygen Flow Rate 0 03/22/22 10:53 Lab/Test Results Lab/Test Results: Laboratory Tests Range/Units 03/22/22 03/22/22 11:15 11:15 WBC (4.4-10.8) 10^3/uL 6.37 RBC (3.93-5.22) 10^6/uL 4.87 Hgb (11.2-15.7) g/dL 13.7 Hct (36.0-46.0) % 42.2 MCV (80-95) fL 87 MCH (27.0-33.0) pg 28.1 MCHC (32.0-36.0) % 32.5 RDW (11.7-14.6) % 13.0 Plt Count (130-400) 10^3/uL MPV (8.0-11.0) fL Immature Gran % 0.2 Neutrophils % 37.5 Lymphocytes % 49.5 Monocytes % 10.2 Eosinophils % 1.7 Basophils % 0.9 Nucleated RBC % (0.0-0.3) % 0.0 Absolute Neutrophils (1.2-6.7) 10^3/uL 2.39 Absolute Lymphocytes (1.2-3.4) 10^3/uL 3.15 Absolute Monocytes (0.1-0.8) 10^3/uL 0.65 Absolute Eosinophils (0.0-0.7) 10^3/uL 0.11 Absolute Basophils (0.0-0.2) 10^3/uL 0.06 Sodium (136-145) mmol/L 137 Potassium (3.5-5.1) mmol/L 3.9 Chloride (98-107) mmol/L 101 Carbon Dioxide (21.0-32.0) mmol/L 27.4 Anion Gap (3-11) mmol/L 8.6 BUN (7-18) mg/dL 18 Creatinine (0.55-1.02) mg/dL 0.7 Estimated GFR/1.73 m2 (mL/min/1.73m2) >= 60.00 Glucose (74-106) mg/dL 78 Calcium (8.5-10.1) mg/dL 8.9 Magnesium (1.8-2.4) mg/dL 2.1 Total Bilirubin (0.2-1.0) mg/dL 0.4 AST (15-37) U/L 76 H ALT (14-59) U/L 85 H Alkaline Phosphatase (46-116) U/L 89 Troponin I (<or=60) ng/L < 50 Total Protein (6.4-8.2) g/dL 8.4 H Albumin (3.4-5.0) g/dL 4.0
[2022-03-22 12:52] LABS: Source Nasal/Nares
[2022-03-22 12:54] LABS: Bilirubin Negative (Negative); Blood Negative (Negative); Clarity Clear (Clear); Glucose Negative (Negative); Ketones Negative (Negative); Leukocyte Esterase Trace (Negative); Nitrite Positive (Negative)
[2022-03-22 13:02] LABS: Epithelial Cells Rare HPF (Negative); RBC Negative HPF (0-2)
[2022-03-22 13:03] LABS: Bacteria Moderate HPF (Negative); C & S Indicated? Yes; Casts Negative LPF (Negative); Crystals Negative HPF (Negative); Mucus Negative (Negative)
[2022-03-22] MEDS: Ketorolac 15 MG/ML VIAL IVP (13:14)
--- NOTE | 2022-03-22 13:15 | DI.US_ITS ---
Exam(s) US UPPER EXTREMITY VENOUS LT EXAM: US UPPER EXTREMITY VENOUS LT CLINICAL HISTORY: left arm pain. TECHNIQUE: Ultrasound examination of the left upper extremity venous system(s) is performed using gr ayscale, color-flow, and spectral Doppler analysis. COMPARISON: No exams were available for comparison FINDINGS: The left internal jugular, axillary, subclavian, cephalic, basilic, brachial, radial, and ulnar veins are patent without evidence of thrombosis. IMPRESSION: No DVT. DATA REPOSITORY:
[2022-03-22 13:41] LABS: COVID-19 PCR Negative (Negative)
[2022-03-22 15:13] LABS: Troponin I < 50 ng/L (<or=60)
== END 2022-03-22 15:58 | disposition home or self-care (01) ==
PROVIDERS: Emergency Provider Nurse Practitioner Family; PCP Nurse Practitioner Family
DX: M79.602 Pain in left arm (principal); R53.1 Weakness; R51.9 Headache, unspecified; R20.2 Paresthesia of skin
CPT/HCPCS: 36415; 80053; 87077; 87635; 93005; 96374; 99284; 99285; 70450; 70551; 81003; 81015; 83735; 84484; 85025; 87086; 87186; 93010; 93971; J1885

== ENCOUNTER → 2022-05-31 03:18 | Outpatient (CLI) | payer OTHER, SELFPAY ==
--- NOTE | 2022-05-31 07:45 | DI.US_ITS ---
Exam(s) US ABDOMEN EXAM: US ABDOMEN CLINICAL HISTORY: elev LFTs, R79.89 TECHNIQUE: Ultrasound of complete upper abdomen performed using standard protocol. COMPARISON: US US UPPER EXTREMITY VENOUS LT from 03/22/2022 FINDINGS: There is no ascites evident. LIVER: Liver is hyperechoic indicating steatosis. No discrete focal hepatic lesions identified. GALLBLADDER/BILIARY: CIS gallbladder surgically absent. The common hepatic duct ismildly dilated, measuring 8-9mm at the level of candi hepatis. PANCREAS: There is no evidence of pancreatic mass nor dilatation of the pancreatic duct. SPLEEN: The spleen is not enlarged and there are no intrasplenic lesions evident. KIDNEYS:Kidneys exhibit normal size with no evidence of solid mass, calculus, nor hydronephrosis. No cortical cysts evident. ABDOMINAL AORTA: There is no evidence of abdominal aortic aneurysm. IVC: Normal diameter where visualized. IMPRESSION: 1. Gallbladder surgically absent. CBD diameter is slightly prominent measuring 8-9 millimeters. Pr obably consistent with post cholecystectomy status. 2. Hepatic steatosis discrete focal hepatic lesions identified. 3. There is no ascites. DATA REPOSITORY:
== END ==
PROVIDERS: PCP Nurse Practitioner Family; Visit Provider Family Medicine
DX: K76.0 Fatty (change of) liver, not elsewhere classified (principal); R79.89 Other specified abnormal findings of blood chemistry; Z90.49 Acquired absence of other specified parts of digestive tract
CPT/HCPCS: 76700

== ENCOUNTER 2022-06-22 01:03 | Outpatient (CLI) | payer OTHER, SELFPAY ==
--- OUTSIDE RECORDS SUMMARY | 2022-06-22 01:35 | XMS_ITS | Encounter Summary ---
:1955 Author Organization [facility] [place] [address] Care Team Providers Name Role Phone Rusty Alireza BERGMAN Primary Care Provider Reason for Visit Reason Comments Skin Check Encounter Details Date Type Department Care Team Description 07/16/2011 Office Visit Dermatology Sergo Valle, History of basal cell [address] [facility] MD carcinoma (Primary [address] Dx) [place], [place] DERMATOLOGY [address] [place] [address] [phone] (Wo rk) Social History Tobacco Use Types Packs/Day Years Used Date Never Smoker Sex Assigned at Date Recorded Not on file documented as of this encounter Progress Notes Sergo Valle MD - 07/16/2011 11:17 AM EDT Problems: 1. One-year skin checkup. 2. History of BCCa(s): right forehead, right tip of nose, left shoulder, right lateral eyebrow previously treated in [place]. 3. History of BCCa, right medial cheek, 07/2009 per [facility]. Rosalinda follows for a yearly skin checkup. She has been doing well. She has not noted any new lesions of concern. Physical examination reveals a benign examination of the sun exposed skin of the head, neck, hands, arms, forearms and also the back. The right medial cheek site remains well healed. There are no lesions of concern today. Assessment & Plan: History of nonmelanoma cutaneous malignancies. a. Patient reassured about benign examination today. b. RTC in one year for repeat check. c. May be able to space out visits if benign examination in another year. Cc: Varun Stewart MD RTC REMINDER: One Year documented in this encounter Plan of Treatment Not on filedocumented as of this encounter Visit Diagnoses Diagnosis History of basal cell carcinoma - Primar y Personal history of other malignant neop lasm of skin documented in this encounter Care Teams Irrigation District Manager Relationship Specialty Start Date End Date Alireza Ojeda DO PCP - General 07/16/[address] [place] [address] documented as of this encounter
--- OUTSIDE RECORDS SUMMARY | 2022-06-22 01:35 | XMS_ITS | Encounter Summary ---
:1955 Author Organization [facility] [place] [address] Care Team Providers Name Role Phone Alireza Ojeda DO Primary Care Provider Encounter Details Date Type Department Care Team Description 07/07/2013 Office Visit Gastroenterology at [facility], DR SALGADO GERD [facility] Krystle Hedrick, [place] ([place] [address] reflux disease) [phone] (Primary Dx) Social History Tobacco Use Types Packs/Day Years Used Date Never Smoker Alcohol Use Standard Drinks/Week Comments No 0 (1 standard drink = 0.6 oz pure alcoho l) Sex Assigned at Date Recorded Not on file documented as of this encounter Progress Notes Krystle Salazar, RN - 07/07/2013 1:18 PM EDT 1315 [address] capsule deployed at 32 cm below incisors Following EGD. Study is being done On Dexilant 60 mgm BID and this was confirmed with her. First pH 6.2. She will mail back television writer and diary in view of the distance involved. documented in this encounter Plan of Treatment Not on filedocumented as of this encounter Visit Diagnoses Diagnosis GERD (gastroesophageal reflux disease) - Primary Esophageal reflux documented in this encounter Care Teams Cpht Relationship Specialty Start Date End Date Alireza Ojeda DO PCP - General 07/16/[address] [place] [address] documented as of this encounter
--- OUTSIDE RECORDS SUMMARY | 2022-06-22 01:35 | XMS_ITS | Encounter Summary ---
:1955 Author Organization [place] [address] Care Team Providers Name Role Phone RustyAlireza caraballo Primary Care Provider Reason for Visit Reason Comments Posterior Capsule Opacification s/p Yag Caps OD 019, OS 03/20/19 Encounter Details Date Type Department Care Team Description 04/17/2019 Office Visit Ophthalmology at [facility] C Ricky Abad, S/P YAG capsulotomy, [facility] [place] [address] [place] [address] [place], [place] [address] Social History Tobacco Use Types Packs/Day Years Used Date Never Smoker Smokeless Tobacco: Never Used Alcohol Use Standard Drinks/Week Comments No 0 (1 standard drink = 0.6 oz pure alcoho l) Sex Assigned at Date Recorded Not on file documented as of this encounter Progress Notes Ricky Abad MD - 04/17/2019 4:00 PM EDT 1. PCO OU: S/p yag caps OD done on 03/13/19 Doing well today 2. Pseudophakia OU: Monitor Plan: Observation recommended Return to clinic: Follow up with Dr Cheng in 1 year for CEE/annual eye care [facility] PRN documented in this encounter Plan of Treatment Not on filedocumented as of this encounter Visit Diagnoses Diagnosis S/P YAG capsulotomy, left documented in this encounter Care Teams Seasonal Delivery Driver Relationship Specialty Start Date End Date Alireza Ojeda DO PCP - General 07/16/[address] [facility] [place] [address] documented as of this encounter
--- OUTSIDE RECORDS SUMMARY | 2022-06-22 01:35 | XMS_ITS | Encounter Summary ---
:1955 Author Organization [facility] [place] [address] Care Team Providers Name Role Phone Alireza Ojeda Primary Care Provider Reason for Visit Reason Comments Pseudophakia Consultation (Routine) - Specialty Diagnoses / Procedures Referred By Contact Refer red To Contact Ophthalmology Diagnoses yag Randall Cheng, OD Ricky Abad MD [address] [place] [address] [place] [address] [place] [address] Fax: Referral ID Status Reason Start Date Expiration Date Visits V isits Requested Authorized [id number] Consult, Test 12/18/2018 12/18/2019 1 1 & Treat PCP Updated and/or Approved Encounter Details Date Type Department Care Team Description 03/13/2019 Office Visit Ophthalmology at [facility] Ricky Shook, PCO ([facility] capsule [facility] Medical opacification)[place] [address] bilateral [phone] [place], [place] [address] Social History Tobacco Use Types Packs/Day Years Used Date Never Smoker Smokeless Tobacco: Never Used Alcohol Use Standard Drinks/Week Comments No 0 (1 standard drink = 0.6 oz pure alcoho l) Sex Assigned at Date Recorded Not on file documented as of this encounter Progress Notes Ricky Abad MD - 03/13/2019 1:45 PM EDT PCO OU: Dense OU, visually significant Pseudophakia OU: Observe Plan: YAG Cap OD today R/b/a discussed RTC 1 week for YAG Cap left eye documented in this encounter Plan of Treatment Not on filedocumented as of this encounter Visit Diagnoses Diagnosis PCO (posterior capsule opacification), b ilateral documented in this encounter Care Teams Tanning Wheel Filler Relationship Specialty Start Date End Date Alireza Ojeda DO PCP - General 07/16/[address] [place] [address] documented as of this encounter
--- OUTSIDE RECORDS SUMMARY | 2022-06-22 01:35 | XMS_ITS | Clinical Summary ---
:1955 Author Organization [facility] [place] [address] Care Team Providers Name Role Phone Alireza Ojeda DO Primary Care Provider Allergies Active Allergy Reactions Severity Noted Date Comments Lisinopril 07/16/2011 Morphine 07/16/2011 Medications Medication Sig Dispensed Refills Start Date End Date Status AMITRIPTYLINE HCL Take 75 mg by 0 Active (AMITRIPTYLINE ORAL) mouth daily. DULOXETINE HCL Take 60 mg by 0 A ctive (CYMBALTA ORAL) mouth daily. clobetasol (TEMOVATE) Apply topically 0 Active 0.05 % ointment as needed. LORazepam (ATIVAN) 1 Take 1 mg by 0 Active mg tablet mouth nightly. pravastatin Take 40 mg by 0 Acti ve (PRAVACHOL) 40 mg mouth daily. tablet esomeprazole (NEXIUM) Take 1 capsule by 180 capsule 3 10/07/19 14 Active 40 mg capsule mouth 2 times daily. Active Problems Problem Noted Date Esophageal reflux 10/06/2013 History of basal cell carcinoma 07/16/2011 Resolved Problems Problem Noted Date Resolved Date Gastritis 05/06/2013 10/06/2013 Family History Medical History Relation Comments Macular Degeneration Father Cataracts Mother Amblyopia Sister Cataracts Sister Glaucoma Neg Hx Retinal Detachment Neg Hx Relation Status Comments Father Mother Sister Social History Tobacco Use Types Packs/Day Years Used Date Never Smoker Smokeless Tobacco: Never Used Alcohol Use Standard Drinks/Week Comments No 0 (1 standard drink = 0.6 oz pure alcoho l) Sex Assigned at Date Recorded Not on file Last Filed Vital Signs Vital Sign Reading Time Taken Comments Blood Pressure 124/80 10/06/2013 2:55 PM EST Pulse 76 10/06/2013 2:55 PM EST Temperature 37.6 ??C (99.7 ??F) 07/07/2013 12:18 PM EDT Respiratory Rate 16 07/07/2013 1:24 PM EDT Oxygen Saturation 96% 07/07/2013 1:24 PM EDT Inhaled Oxygen Concentration - - Weight 87.1 kg (192 lb) 10/06/2013 2:55 PM EST Height 154.9 cm (5' 1) 10/06/2013 2:55 PM EST Body Mass Index 36.28 10/06/2013 2:55 PM EST Plan of Treatment Health Maintenance Due Date Last Done Comments Covid-19 Vaccine (#1) 02/26/1960 Hepatitis C Screening 1973 Tdap adult 1974 Tetanus vaccine 1974 Breast Cancer Share Decision Needed 1995 Colonoscopy 02/26/2000 Breast Cancer screening 2005 Zoster vaccine (1 of 2) 2005 Advance Directive 2010 Bone Density Scan 02/26/2020 Pneumoccocal Vaccine: 65+ (1 - PCV) 02/26/2020 Influenza (Flu) vaccine (1 of 1 - Influenza standard 05/31/2022 series) Insurance Payer Benefit Plan / Subscriber ID Effective Dates Phone Addre ss Type Group MEDICARE MEDICARE PART A [id number] 2019-[place] [phone] [facility]UR[facility] [phone] Care Teams Corrective And Manual Arts Therapist Relationship Specialty Start Date End Date Alireza Ojeda DO PCP - General 07/16/[address] [place] [address]
--- OUTSIDE RECORDS SUMMARY | 2022-06-22 01:35 | XMS_ITS | Encounter Summary ---
:1955 Author Organization [facility] [place] [address] Care Team Providers Name Role Phone Alireza Ojeda DO Primary Care Provider Reason for Visit Reason Comments GI Problem Encounter Details Date Type Department Care Team Description 05/06/2013 Office Visit Gastroenterology at [facility] Jo-Ann Grubbs, Juwan ([facility] Shannan maloney APRN Dx) [place] [address] [place] [address] [facility] [place] [address] Social History Tobacco Use Types Packs/Day Years Used Date Never Smoker Sex Assigned at Date Recorded Not on file documented as of this encounter Last Filed Vital Signs Vital Sign Reading Time Taken Comments Blood Pressure 135/88 05/06/2013 12:58 PM EDT Pulse 106 05/06/2013 12:58 PM EDT Temperature - - Respiratory Rate - - Oxygen Saturation - - Inhaled Oxygen Concentration - - Weight 88 kg (194 lb) 05/06/2013 12:58 PM EDT Height 154.9 cm (5' 1) 05/06/2013 12:58 PM EDT Body Mass Index 36.66 05/06/2013 12:58 PM EDT documented in this encounter Progress Notes Jo-Ann Grubbs RN - 05/06/2013 1:14 PM EDT Section of Gastroenterology and Hepatology [address] [place] [id number] .Genoveva Whiting : 1955 Patient is here for further evaluation of gastrointestinal symptoms at the request of Alireza Ojeda DO. HPI: Dx many years ago with celiac disease. Per pt she had an egd/small bowel bx which dx celiac. Since then has been following a gluten free diet. Upper endoscopy 11/2012, [facility], per notes showed inactive celiac disease and chronic gastritis. Will need to obtain egd report and bx report. Pt is taking Prilosec 40mg bid and Carafate qid since November 2012. She notes she has been taking Prilosec 40mg qd for at least 5 years. Also, takes tums daily for breakthrough. Tried decreasing the carafate however exacerbated her sx. Ongoing regurgitation, acid taste. Ongoing epigastric pain. Water and lying down worsen her sx. No substernal burn. No dysphagia, odynophagia, vomiting, chest pain. Awakes with dry mouth, sore throat, hoarseness. Some improvement through the day. No nausea No chronic nsaids. Stopped asa therapy in November 2012. No other food allergies besides gluten. No early satiety. Post-prandially bloat, distention. Was told she is gassy through the night. Diet: Breakfast: cinnamon chex with milk. Lunch: 1/2 cup of rice. Supper: chicken/sweet potato. Fluids: water. Ice cream at 7pm. Bed is at 9-10pm. Bowels are regular. Current probiotic helps with regularity. No diarrhea, lower abdominal pain, cramping, urgency. No blood in stool. No mucous in stool. No incontinence. Colonoscopy 2010, [facility], normalexam per pt. Received test results during visit. Upper endoscopy [facility] 2010: duodenum mucosa blunted, gastric antrum had multiple petechial hemorrhages which continued up to the greater curvature, with edema and erythema of the gastric antrum. Bx showed chronic nonspecific duodenitis, rare mild villous blunting, slight increase in intraepithelial lymphocytes. Gastric antral mucosa with no specific pathological features Upper endoscopy [facility] 2012. Duodenum mucosa blunted. Gastric antrum had edema and erythema. Bx of duodenum did not show worrisome features, antral mucosa with chronic focally active gastritis, h. Pylorinegative. Colonoscopy 2010, [facility], normal exam. History Social History ??? Marital Status: Spouse Name: N/A Number of Children: N/A ??? Years of Education: N/A Occupational History ??? Not on file. Social History Main Topics ??? Smoking status: Never Smoker ??? Smokeless tobacco: Not on file ??? Alcohol Use: Not on file ??? Drug Use: Not on file ??? Sexually Active: Not on file Other Topics Concern ??? Not on file Social History Narrative ??? No narrative on file Medical History: celiac, fibromyalgia, depression, htn Surgical History: right knee replacement, TSH, BSO (per pt ovarian cancer found at surgery), disc 5-6 removed, right shoulder, cholecystectomy Family History: mother: colon cancer, dx age 80. Father: colon cancer, dx age 79. 2 sisters and 2 nephews with celiac. Allergies Allergen Reactions ??? Lisinopril ??? Morphine Current outpatient prescriptions:LORazepam (ATIVAN) 1 mg tablet, Take 1 mg by mouth nightly., Disp: , Rfl: ; sucralfate (CARAFATE) 1 gram tablet, Take 1 g by mouth 4 times daily. Before meals and at bedtime, Disp: , Rfl: ; omeprazole (PRILOSEC) 40 mg capsule, Take 40 mg by mouth 2 times daily., Disp: , Rfl: ; pravastatin (PRAVACHOL) 40 mg tablet, Take 40 mg by mouth daily., Disp: , Rfl: LACTOBACILLUS ACIDOPHILUS (PROBIOTIC ORAL), Take 1 tablet by mouth daily., Disp: , Rfl: ; losartan (COZAAR) 50 mg tablet, Take 50 mg by mouth daily., Disp: , Rfl: ; AMITRIPTYLINE HCL (AMITRIPTYLINE ORAL), Take 75 mg by mouth daily., Disp: , Rfl: ; DICLOFENAC POTASSIUM ORAL, Take 50 mg by mouth 2 timesdaily., Disp: , Rfl: ; DULOXETINE HCL (CYMBALTA ORAL), Take 60 mg by mouth daily., Disp: , Rfl: clobetasol (TEMOVATE) 0.05 % ointment, Apply topically as needed., Disp: , Rfl: ; DISCONTD: triamcinolone (KENALOG) 0.1 % cream, Apply topically daily as needed., Disp: , Rfl: Review of Systems - Negative except General: Cardiac: htn controlled Resp: GI: see above : MS: Neuro: Skin: Psyche: Sleep: Endo: Impression: 1. Chronic gastritis: ?etiology ?acid ?autoimmune ?medications (has stopped asa). Will change ppi todexilant 60mg bid,30 minutes before breakfast and supper.May need to consider repeat egd to assess healing. Obtain labs today to sore out autoimmune gastritis (intrinsic factor antibody, parietal cell a ntibody, ttg/IgA, cbc, anemia panel). Continue with carafate qid. 2. Regurgitation: ?effectiveness of ppi. Will try new one. If not effective consider ph testing on medications. Consider role of gastric emptying study and motility of stomach ?delay. gerd diet and lifestyle modifications. 3. Celiac: gluten free diet. Given results of bx, ?100% compliance. May need to refer to GI linux systems administrator. 4. Gas/bloat: fodmap diet 5. Given family hx colonoscopy should be repeated in 5 years which would be 2016. I spent a total of 55 minutes face to face with this patient; 39 minutes were spent counseling the patient in the medical problems described above. Sincerely, Jo-Ann Grubbs NP Section of Gastroenterology and Hepatology documented in this encounter Plan of Treatment Not on filedocumented as of this encounter Procedures Procedure Name Priority Date/Time Associated Diagnosis Comme nts PARIETAL CELL Routine 05/06/2013 2:10 PM Gastritis Results for this ANTIBODY IGG EDT procedure are i n the results section. DIFFERENTIAL, Routine 05/06/2013 2:10 PM Results for this AUTOMATED EDT procedure are i n the results section. INTRINSIC FACTOR Routine 05/06/2013 2:10 PM Gastritis Resul ts for this BLOCKING ANTIBODY EDT procedure are in the results section. IRON AND TIBC Routine 05/06/2013 2:10 PM Gastritis Results for this EDT procedure are i n the results section. CBC (WITH DIFF) Routine 05/06/2013 2:10 PM Gastritis Result s for this EDT procedure are i n the results section. FOLATE, SERUM Routine 05/06/2013 2:10 PM Gastritis Results for this EDT procedure are i n the results section. FERRITIN Routine 05/06/2013 2:10 PM Gastritis Results f or this EDT procedure are i n the results section. VITAMIN B12 Routine 05/06/2013 2:10 PM Gastritis Results f or this EDT procedure are i n the results section. documented in this encounter Results Differential, Automated (05/06/2013 2:10 PM EDT) P athologist Signature Neutrophils % 46.9 34.0 - CERNER 71.0 % MILLENNIUM Neutr Abs (ANC) 3.48 1.50 - CERNER 6.30 MILLENNIUM x10(3)/mcL Lymphocytes % 42.9 19.0 - CERNER 53.0 % MILLENNIUM Lymphocytes Abs 3.2 1.0 - 3.6 CERNER x10(3)/mcL MILLENNIUM Monocytes % 7.2 4.0 - 13.0 CERNER % MILLENNIUM Monocyte Abs 0.5 0.2 - 1.0 CERNER x10(3)/mcL MILLENNIUM Eosinophils % 2.2 0.0 - 7.0 CERNER % MILLENNIUM Eosinophils Abs 0.2 0.0 - 0.5 CERNER x10(3)/mcL MILLENNIUM Basophils % 0.5 0.0 - 2.0 CERNER % MILLENNIUM Basophils Abs 0.0 0.0 - 0.2 CERNER x10(3)/mcL MILLENNIUM Immature Gran % 0.30 0.00 - CERNER 0.66 % MILLENNIUM Comment: Immature granulocytes(IG's)percentage an d absolute count will include metamyelocytes, myelocytes, and promyelo cytes. Blood smears from CBCs yielding IG's will be scanned manually for concor dance. If this scan disagrees with the automated IG or if promyelocytes are not ed, a manual differential will be performed. Yuliet Gran Abs 0.02 0.00 - 0.05 x10(3)/mcL CER NER MILLENNIUM Specimen Anatomical Collection Method Collection Time Receive d Time (Source) Location / / Volume Laterality Blood specimen 05/06/2013 2:10 PM 013 2:12 (specimen) EDT PM EDT Michael Garcia MD HEMATOLOGY ORDERABLES Performing Organization Address City/State/[place] [address] CERNER MILLENNIUM Folate, serum (05/06/2013 2:10 PM EDT) athologist Signature Folate Lvl >20.0 4.6 - 34.8 CERNER ng/mL MILLENNIUM Specimen Anatomical Collection Method Collection Time Receive d Time (Source) Location / / Volume Laterality Blood specimen 05/06/2013 2:10 PM 013 2:12 (specimen) EDT PM EDT Resulting Agency Comment Spec In Lab Michael Garcia MD CHEMISTRY ORDERABLES Performing Organization Address City/[facility]/ZIP Code Phon e Number [address] CERNER MILLENNIUM (ABNORMAL) Vitamin B12 (05/06/2013 2:10 PM EDT) athologist [facility] Vitamin B-12 1009 (H) 207 - 974 CERNER pg/mL MILLENNIUM Specimen Anatomical Collection Method Collection Time Receive d Time (Source) Location / / Volume Laterality Blood specimen 05/06/2013 2:10 PM 013 2:12 (specimen) EDT PM EDT Resulting Agency Comment Spec In Lab Michael Garcia MD CHEMISTRY ORDERABLES Performing Organization Address City/[facility]/ZIP [facility] Phon e Number [address] CERNER MILLENNIUM Ferritin (05/06/2013 2:10 PM EDT) athologist [facility] Ferritin 42 30 - 400 CERNER ng/mL MILLENNIUM Comment: Pediatric reference ranges not verified at [facility], interpret with caution. Reference ranges for females greater fernando n 50 years of age approach values for men, i.e., 30-400 ng/mL. Specimen Anatomical Collection Method Collection Time Receive d Time (Source) Location / / Volume Laterality Blood specimen 05/06/2013 2:10 PM 013 2:12 (specimen) EDT PM EDT Resulting Agency Comment Spec In Lab Michael Garcia MD CHEMISTRY ORDERABLES Performing Organization Address City/[facility]/ZIP [facility] Phon e Number [address] CERNER MILLENNIUM Iron and TIBC (05/06/2013 2:10 PM EDT) athologist Signature Iron 97 30 - 150 CERNER mcg/dL MILLENNIUM TIBC 325 250 - 450 CERNER mcg/dL MILLENNIUM Iron Saturation 30 20 - 50 % [facility] MILLENNIUM Specimen Anatomical Collection Method Collection Time Receive d Time (Source) Location / / Volume Laterality Blood specimen 05/06/2013 2:10 PM 013 2:12 (specimen) EDT PM EDT Resulting Agency Comment Spec In Lab Michael Garcia MD CHEMISTRY ORDERABLES Performing Organization Address City/[facility] [place] [address] CERNER MILLENNIUM CBC (with Diff) (05/06/2013 2:10 PM EDT) athologist Signature WBC 7.4 4.0 - 10.0 CERNER x10(3)/mcL MILLENNIUM RBC 4.20 3.93 - 5.22 CERNER x10(6)/mcL MILLENNIUM Hemoglobin 11.9 11.2 - 15.7 CERNER gm/dL MILLENNIUM Hematocrit 36.0 34.0 - 45.0 CERNER % MILLENNIUM MCV 85.7 79.0 - 94.0 CERNER fL MILLENNIUM MCH 28.3 26.6 - 32.2 CERNER pg MILLENNIUM MCHC 33.1 32.0 - 36.5 CERNER gm/dL MILLENNIUM Platelets 284 145 - 370 CERNER x10(3)/mcL MILLENNIUM RDWSD 43.0 35.0 - 46.0 CERNER fL MILLENNIUM RDWCV 13.8 10.9 - 14.4 CERNER % MILLENNIUM MPV 10.1 9.0 - 12.0 CERNER fL MILLENNIUM Specimen Anatomical Collection Method Collection Time Receive d Time (Source) Location / / Volume Laterality Blood specimen 05/06/2013 2:10 PM 013 2:12 (specimen) EDT PM EDT Resulting Agency Comment Spec In Lab Michael Garcia MD HEMATOLOGY ORDERABLES Performing Organization Address City/[facility] [place] [address] CERNER MILLENNIUM Parietal Cell Antibody IgG (05/06/2013 2:10 PM EDT) P athologist Signature Parietal Cell <10.0 <=20.0 CERNER Ab, IgG (Negative) MILLENNIUM U Comment: Test Performed by: [address] [address] Anesthesiology Resident: Danny hauser III, MLandon. Specimen Anatomical Collection Method Collection Time Receive d Time (Source) Location / / Volume Laterality Blood specimen 05/06/2013 2:10 PM 013 4:21 (specimen) EDT PM EDT Resulting Agency Comment Spec In Lab Michael Garcia MD IMMUNOLOGY ORDERABLES Performing Organization Address City/[facility]/ZIP Code Phon e Number [address] CERNER MILLENNIUM Intrinsic Factor Blocking Antibody (05/06/2013 2:10 PM EDT) athologist Signature IF Ab Negative Negative CERNER MILLENNIUM Comment: Positive in 50% of persons with pernicio us anemia. Test Performed by: [place] [address] Anesthesiology Resident: Estefany De La Torre, Ph. D. Specimen Anatomical Collection Method Collection Time Receive d Time (Source) Location / / Volume Laterality Blood specimen 05/06/2013 2:10 PM 013 4:19 (specimen) EDT PM EDT Resulting Agency Comment Spec In Lab Michael Garcia MD IMMUNOLOGY ORDERABLES Performing Organization Address City/[facility]/ZIP [facility] Phon e Number [address] CERNER MILLENNIUM documented in this encounter Visit Diagnoses Diagnosis Gastritis - Primary Unspecified gastritis and gastroduodenit is without mention of hemorrhage documented in this encounter Care Teams Assistant Women'S Basketball Coach Relationship Specialty Start Date End Date Alireza Ojeda DO PCP - General 07/16/[address] [place] [address] documented as of this encounter
--- OUTSIDE RECORDS SUMMARY | 2022-06-22 01:35 | XMS_ITS | Encounter Summary ---
:1955 Author Organization [facility] [place] [address] Care Team Providers Name Role Phone Alireza Ojeda DO Primary Care Provider Encounter Details Date Type Department Care Team Description 08/10/2013 Office Visit Gastroenterology at [facility], DR SALGADO GERD [facility] Krystle Hedrick RN ([place] [address] reflux disease) [phone] (Primary Dx) Social History Tobacco Use Types Packs/Day Years Used Date Never Smoker Alcohol Use Standard Drinks/Week Comments No 0 (1 standard drink = 0.6 oz pure alcoho l) Sex Assigned at Date Recorded Not on file documented as of this encounter Progress Notes Michael Garcia MD - 08/16/2013 4:22 PM EST [id number] IMPEDANCE AND pH STUDY Genoveva Whiting Female, 58 yrs, 1955 PCP: ALIREZA OJEDA AGRICULTURE INTERN: NONE STUDY DATE: 08/10/13 to 08/11/13 PROVIDER: [place] ([id number]) REQUESTING PROVIDER(S): INDICATION Reflux symptoms despite medical therapy. NOTE: This study was performed on 40 mg of Nexium each day. This study was performed at no cost to the patient, as a prior Berry pH capsule study was inadequate due to premature detachment of the BravopH capsule. METHODS: The procedure was explained to the patient and verbal consent obtained. After topical anesthesia to the nose and oropharynx, a combination impedance-pH catheter ([employer]) was passed transnasally and positioned with the pH probe 5.0 cm above the upper border of the LES. Impedance sensor positions were located 3.0, 5.0, 7.0, 9.0, 15.0 and 17.0 cm above the LES. The catheter was secured and appropriate instruction was provided to the patient. No complications were noted. FINDINGS: I. STUDY DURATION Total study duration 22 hours, 43 minute(s). Upright position 12 hours, 26 minute(s). Recumbent position 10 hours, 17 minute(s). II. ACID EXPOSURE Total number of acid reflux events: 1 Upright: 0 Supine: 1 Episodes Longer than Five Minutes: 0 Upright: 0 Supine: 0 Longest Episode: 1 minute(s), upright position Total Acid Exposure Time: 1 minute(s) Which represents 0.1% of total 0% of upright 0.1% of supine. The calculated DeMeester score was 0.3, which is below the upper limit of normal of 14.72. III. REFLUX EPISODES (Impedance) Acid: 0 Weakly acidic: 0 Non-acid: 0 detected Upright position Weakly acidic: 0 Non-acid: 0 Recumbent position Weakly Acidic: 0 Non-acid: 0 The total number of reflux events was 1, which is below the accepted upper limits of normal of 73. IV. SYMPTOM ASSOCIATION The patient reported 8 episodes of acid reflux; none were associated with documented acid reflux. IMPRESSION During this recording period, while the patient was on 40 mg of Nexium each day, there was no evidence of pathologic acid reflux into the distal esophagus. Symptom association was poor. Michael Garcia, PhD, MD pick up truck driver, [facility] [employer] Section of Gastroenterology and Hepatology [facility] [place] [address] V: [phone] F: [phone] ALIZA/johnathon EC/CC: PCP Krystle Salazar RN - 08/11/2013 11:43 AM EST [id number] Genoveva returned for removal of impedance probe. States she has no issues regardingthe test. Discharged from lab Krystle Salazar RN - 08/10/2013 12:58 PM EST Impedance teaching done. Study is being done ON Nexium 40 mgm daily. She states her primary care physician took her off the Dexilant 60 mgm BID. Impedance probe placed with 36 cm reinaldo at left nare. This was well tolerated. She will return tomorrow at 1 pm for removal of probe. Discharged from lab without voiced concerns. documented in this encounter Plan of Treatment Not on filedocumented as of this encounter Visit Diagnoses Diagnosis GERD (gastroesophageal reflux disease) - Primary Esophageal reflux documented in this encounter Care Teams Patient Financial Services Coordinator Relationship Specialty Start Date End Date Alireza Ojeda DO PCP - General 07/16/[address] [place] [address] [address] [place] [address] documented as of this encounter
--- OUTSIDE RECORDS SUMMARY | 2022-06-22 01:35 | XMS_ITS | Encounter Summary ---
:1955 Author Organization [facility] Address [facility] [place] [address] Care Team Providers Name Role Phone Alireza Ojeda DO Primary Care Provider Reason for Visit Reason Onset Date Comments Medication Refill 10/07/2013 Encounter Details Date Type Department Care Team Description 10/07/2013 Refill Gastroenterology at [facility] Jo-Ann Grubsb [place] [phone] GASTROENTEROLOGY DEPT. [phone] [place], [place] [address] (Wo rk) Social History Tobacco Use Types Packs/Day Years Used Date Never Smoker Alcohol Use Standard Drinks/Week Comments No 0 (1 standard drink = 0.6 oz pure alcoho l) Sex Assigned at Date Recorded Not on file documented as of this encounter Plan of Treatment Not on filedocumented as of this encounter Visit Diagnoses Not on filedocumented in this encounter Care Teams Senior Support Analyst Relationship Specialty Start Date End Date Alireza Ojeda DO PCP - General 07/16/[address] [place], [place] [address] documented as of this encounter
--- OUTSIDE RECORDS SUMMARY | 2022-06-22 01:35 | XMS_ITS | Encounter Summary ---
:1955 Author Organization [facility] [place] [address] Care Team Providers Name Role Phone Alireza Ojeda DO Primary Care Provider Reason for Visit Reason Comments Follow-up Encounter Details Date Type Department Care Team Description 10/06/2013 Follow-Up Gastroenterology at [facility] Jo-Ann Grubbs, Esophageal reflux [facility] Shannan maloney APRN (Primary Dx) [place] [address] [facility] [phone] CENTER GASTROENTEROLOGY DEPT. [place], [place] [address] Social History Tobacco Use Types [...] Pulse 76 10/06/2013 2:55 PM EST Temperature - - Respiratory Rate - - Oxygen Saturation - - Inhaled Oxygen Concentration - - Weight 87.1 kg (192 lb) 10/06/2013 2:55 PM EST Height 154.9 cm (5' 1) 10/06/2013 2:55 PM EST Body Mass Index 36.28 10/06/2013 2:55 PM EST documented in this encounter Progress Notes Jo-Ann Grubbs RN - 10/06/2013 3:21 PM EST Pt continues with ongoing regurgitation, bad taste in her mouth despite nexium 40mg qd. Has tried Dexilant 60mg bid with no relief. Tried Prilosec 40mg bid with no relief. Tried Prevacid 30mg bid with no relief. No substernal burning. Berry ph premature detachment. Impedance on Nexium 40mg qd, negative. However, pt states she did noteat much. Upper endoscopy normal exam. Bx Coombs 1 celiac disease findings. Gastric emptying study normal. Feels hang up of food in throat. Eventually passes. No regurgitation of bolus. No odynophagia, n/v, chest pain, ent concerns. Low fodmap diet helpful. Less gas, bloat. Has gained eight pounds. No changes in appetite. Stools are hard. Has to strain. Has at least 3 BMs per week. No blood in stool. Tried colace, causedcramping. Colonoscopy 2010, [facility], normal exam. Plan: 1. Gerd: Nexium 40mg bid, 30 minutes before breakfast and supper. gerd diet and lifestyle modifications. 2. Dysphagia: if does not improve with ppi bid, consider EM and/or MBS. 3. Constipation: miralax 1-2 capfuls qd. 4. Pt to call GI with progress. documented in this encounter Plan of Treatment Not on filedocumented as of this encounter Visit Diagnoses Diagnosis Esophageal reflux - Primary documented in this encounter Care Teams Canvas Baster Jumpbasting Relationship Specialty Start Date End Date Alireza Ojeda DO PCP - General 07/16/[address] [place] [address] [address] [place] [address] documented as of this encounter
--- OUTSIDE RECORDS SUMMARY | 2022-06-22 01:35 | XMS_ITS | Encounter Summary ---
:1955 Author Organization [facility] Address [facility] [place] [address] Care Team Providers Name Role Phone Rusty Alireza BERGMAN Primary Care Provider Encounter Details Date Type Department Care Team Description 07/07/2013 Surgery Gastroenterology at [facility] Que Justin, EGD, UPPER GI [facility] [place] [address] [facility] [phone] GASTROENTEROLOGY [place], [place] [address] Social History Tobacco Use Types Packs/Day Years Used Date Never Smoker Alcohol Use Standard Drinks/Week Comments No 0 (1 standard drink = 0.6 oz pure alcoho l) Sex Assigned at Date Recorded Not on file documented as of this encounter Last Filed Vital Signs Vital Sign Reading Time Taken Comments Blood Pressure 114/58 07/07/2013 1:24 PM EDT Pulse 92 07/07/2013 1:24 PM EDT Temperature 37.6 ??C (99.7 ??F) 07/07/2013 12:18 PM EDT Respiratory Rate 16 07/07/2013 1:24 PM EDT Oxygen Saturation 96% 07/07/2013 1:24 PM EDT Inhaled Oxygen Concentration - - Weight - - Height - - Body Mass Index - - documented in this encounter Discharge Instructions Discharge InstructionsDick Saldaña RN - 07/07/2013 1:26 PM EDT You may have received medication before and/or during your procedure, which affects judgement and reaction time. Do not drive, operate machinery, drink alcoholic beverages, or make important decisions for 24 hours. Be careful on stairs, as you may be unsteady on your feet. You may eat a regular diet as tolerated. Do not smoke if you are alone. IV site -- slight redness, or tenderness is normal, you can use a warm compress. If tenderness and redness increases or foul drainage occurs, please contact your M. D. AttachmentsThe following attachments cannot be sent through Care Everywhere. UPPER GI ENDOSCOPY: WHAT TO EXPECT AT HOME (FIJIAN)documented in this encounter Medications at Time of Discharge Medication Sig Dispensed Refills Start Date End Date LORazepam (ATIVAN) 1 mg Take 1 mg by mouth 0 tablet nightly. pravastatin (PRAVACHOL) Take 40 mg by mouth 0 40 mg tablet daily. AMITRIPTYLINE HCL Take 75 mg by mouth 0 (AMITRIPTYLINE ORAL) daily. DULOXETINE HCL (CYMBALTA Take 60 mg by mouth 0 ORAL) daily. clobetasol (TEMOVATE) Apply topically as 0 0.05 % ointment needed. esomeprazole (NEXIUM) 40 Take 1 capsule by 90 capsule 3 05/0110/07/2013 mg capsule mouth daily. sucralfate (CARAFATE) 1 Take 1 g by mouth 4 0 10/06/2013 gram tablet times daily. Before meals and at bedtime LACTOBACILLUS ACIDOPHILUS Take 1 tablet by 0 10/06/2013 (PROBIOTIC ORAL) mouth daily. dexlansoprazole Take 1 capsule by 60 capsule 11 05/06/2013 (DEXILANT) 60 mg CpDM mouth 2 times daily. losartan (COZAAR) 50 mg Take 50 mg by mouth 0 10/06/2013 tablet daily. DICLOFENAC POTASSIUM ORAL Take 50 mg by mouth 0 10/06/2013 2 times daily. documented as of this encounter H&P Notes Que Justin MD - 07/07/2013 12:50 PM EDT Gastroenterology and Hepatology Pre-Procedure History and Physical Exam Procedure: EGD: Indication: GERD, refractory Berry Patient Active Problem List Diagnosis Code ??? History of basal cell carcinoma V10.83 ??? Gastritis 535.50 EXAM: HEENT: Airway examined, oropharynx clear LUNGS: Clear to auscultation HEART: Regular rate and rhythm, normal S1, S2 ABDOMEN: Normal bowel sounds, soft, non tender, non distended, A/P Proceed with the planned endoscopic procedure. Risks and benefits of the procedure explained to the patient. Consent signed. documented in this encounter Miscellaneous Notes Miscellaneous - Provider, Scanning - 07/07/2013 3:49 PM EDT documented in this encounter Plan of Treatment Not on filedocumented as of this encounter Procedures Procedure Name Priority Date/Time Associated Diagnosis Comme nts SURGICAL PATHOLOGY Routine 07/07/2013 1:33 PM Res ults for this REPORT EDT procedure are i n the results section. SPECIMEN TO Routine 07/07/2013 1:33 PM Results f or this PATHOLOGY EDT procedure are i n the results section. EGD, UPPER GI 07/07/2013 1:04 PM GERD ENDOSCOPY EDT (gastroesophageal reflux disease) UPPER GI ENDOSCOPY Routine 07/07/2013 12:55 PM Re sults for this EDT procedure are i n the results section. documented in this encounter Results Surgical Pathology Report (07/07/2013 1:33 PM EDT) Component Value Ref Test Analysis Performed At [facility] Range Method Time Signature Surgical CERNER Pathology ? [facility] Report ? Provider: ?? QUE JUSTIN ?Pt. Name: ?? GENOVEVA TERRY ? Acc #: ?[id number] ?Pt. MRN: ?[id number] ? Col Date: ?? 3 ? /Sex: ?1955,(58 years),Female ? Rec Date: ?? 07/07/2013 ? LOC: ?4T ? SURGICAL PATHOLOGY ? ---Pathologic Diagnosis--- ? Duodenum, biopsy: ?Duodenal mucosa with normal villous and crypt architecture and increased ? intraepithelial lymphocytes (see Note). ? NOTE: ??The findings are consistent with Coombs type 1 celiac disease. ? CR-0 ? 07/08/13 ? BJM ? 07/08/13 Verified by: ? Dashawn Sultana MD ? Pathologist ? (Electronic Si gnature) ? The attending pathologist whose signature appears o n this report has ? reviewed all diagnostic slides and has edited the kadeem ss and/or ? microscopic portion of the report in rendering the fi nal pathologic ? diagnosis. ? ---Gross Description--- ? A - Labeled/Fixative: BX of duodenum, formalin. ? Quantity/Size: Five, ranging from 0.2-0.5 cm. ? Tissue Description: Soft de jesus tissue. ? Sections/Processing: (T1) ??al ? ---Clinical Information--- ? Specimen Submitted: ? A - Bx of duodenum ? Clinical History: ? Patient with history of celiac disease assess for act ivity ? Clinical Diagnosis: ? Same Specimen (Source) Anatomical Collection Method Collection Time Re ceived Time Location / / Volume Laterality 07/07/2013 1:33 PM EDT Que Justin MD PATHOLOGY/CYTOLOGY ORDERABLE S Performing Organization Address City/State/[place] [address] [facility] Specimen to Pathology (surgical or derm) (07/07/2013 1:33 PM EDT) Specimen Anatomical Collection Method Collection Time Receive d Time (Source) Location / / Volume Laterality AP Specimen 07/07/2013 1:33 PM 3 1:33 EDT PM EDT Narrative TATYANA WARE - 07/07/2013 1:33 PM E DT Specimen requisition ordered. ??Separate Pathology report to follow Que Justin MD PATHOLOGY/CYTOLOGY ORDERABLE S Performing Organization Address [facility]/[place] [address] TATYANA WARE UPPER GI ENDOSCOPY (07/07/2013 12:55 PM EDT) [facility] gist Method Time Signature UPPER GI [facility] [employer] ENDOSCOPY Endoscopy Patient Name: Genoveva hWiting ? Procedure Date: 07/07/2013 12:55 PM ? Date of : 1955 ? Age: 58 ? Order #: [id number] ? Procedure: ? Upper GI endoscopy Indications: ? Refractory GERD for Berry capsule Providers: ? Que Justin MD, Petty maynard, ? RN, Rhonda Balderas, Maureen hnician Referring : ?Alireza Ojeda, DO Medicines: ? Midazolam 2 mg IV, Fentanyl 100 ? micrograms IV Complications: ? No immediate complications. Procedure: ? The procedure, indications, benefi ts, ? risks and alternatives were e xplained ? to the patient. Specifically ? discussed were potential ? complications including, but not ? limited to, bleeding, perfora tion, ? infection, missing a cancer, and ? adverse medication reactions. The ? [facility] ? mouth, and advanced to the ird part ? of duodenum. The patient celeste rated ? the procedure well. The upper GI ? endoscopy was accomplished wi out ? difficulty. The patient migdalia ated the ? procedure well. ? Findings: ? The examined esophagus was normal. ? The Z-line was regular and was found 38 cm from the ? incisors. ? There was no esophagitis ? The stomach was normal. ? The examined duodenum was normal. Biopsies were taken ? with a cold forceps for histology. ? Upon completion a Berry capsule was placed by nurse ? Martin ? Impression: ?- Normal esophagus. ? - Z-line regular, 38 cm from the ? incisors. ? - Normal stomach. ? - Normal examined duodenum. T his was ? biopsied. Recommendation: ?- Await pathology results. ? Que Justin MD 07/07/2013 1:19 PM This report has been signed electronically. Number of Addenda: 0 Note Initiated On: 07/07/2013 12:55 PM Specimen (Source) Anatomical Collection Method Collection Time Re ceived Time Location / / Volume Laterality 07/07/2013 12:55 PM EDT Alireza Ojeda DO GENERAL SURGICAL ORDERABLES Performing Organization Address City/State/ZIP Code Phon e Number [place] documented in this encounter Visit Diagnoses Diagnosis GERD (gastroesophageal reflux disease) Esophageal reflux documented in this encounter Administered Medications Inactive Administered Medications - up to 3 most recent administrations Medication Order MAR Action Action Date Dose Rate Site fentaNYL 50mcg/mL injection Given 07/07/2013 1:07 PM EDT 100 mcg Right Arm ONCE PRN, Starting on Sat07/07/13 at 1307, Until Sat07/07/13 at 1624, Pain, Intra-Operative (Intra-Procedure), Routine midazolam (VERSED) injection Given 07/07/2013 1:07 PM EDT 2 mg Right Arm ONCE PRN, Starting on Sat07/07/13 at 1307, Until Sat07/07/13 at 1624, Sleep, Intra-Operative (Intra-Procedure), Routine documented in this encounter Active and Recently Administered Medications Times are shown in EDT. PRN Medication Order 07/05/2013 07/06/2013 07/07/2013 fentaNYL 50mcg/mL injection (CANCELED) 1307 (Given - Provider: Petty Turpin RN) ONCE PRN, Starting Sat07/07/13 at 1307, Until Sat07/07/13 at 1624, Pain, Intra- Operative (Intra-Procedure), Routine midazolam (VERSED) injection (CANCELED) 1307 (Given - Provider: Petty Turpin, RAÚL) ONCE PRN, Starting 07/07/13 at 1307, Until Tu07/07/13 at 1624, Sleep, Intra- Operative (Intra-Procedure), Routine documented in this encounter Care Teams Ebd Teacher Relationship Specialty Start Date End Date Alireza Ojeda DO PCP - General 07/16/[address] [place] [address] [address] [place] [address] documented as of this encounter
--- OUTSIDE RECORDS SUMMARY | 2022-06-22 01:35 | XMS_ITS | Encounter Summary ---
:1955 Author Organization [facility] [address] Care Team Providers Name Role Phone RustyAlireza caraballo Primary Care Provider Encounter Details Date Type Department Care Team Description 07/07/2013 Hospital Encounter [place] [facility] Michael Garcia MD [facility] [address] [place] [address] [facility] Que Gonzalez MD [facility] [place] [address] [place] [address] Social History Tobacco Use Types Packs/Day Years [...] documented in this encounter Discharge Instructions Discharge Dick Betancourt RN - 07/07/2013 1:26 PM EDT You [...] GI ENDOSCOPY: WHAT TO EXPECT AT HOME (KENYAN)documented in this encounter Medications at Time of [...] as of this encounter H&P Notes Que Mejia MD - 07/07/2013 12:50 PM EDT Gastroenterology [...] Component Value Ref Test Analysis Performed At [facility] Range Method Time Signature Surgical CERNER Pathology ? [facility] Report ? Provider: ?? QUE MEJIA ?Pt. Name: ?? GENOVEVA TERRY ? Acc #: ?[id number] ?Pt. MRN: ?[id number] ? Col Date: ?? 3 ? /Sex: [...] Volume Laterality 07/07/2013 1:33 PM EDT Que Mejia MD PATHOLOGY/CYTOLOGY ORDERABLE S Performing Organization Address City/State/ZIP [place] [address] TATYANA WARE Specimen to Pathology (surgical or derm) (07/07/2013 1:33 PM EDT) Specimen Anatomical Collection Method Collection Time Receive d Time (Source) Location / / Volume Laterality AP Specimen 07/07/2013 1:33 PM 3 1:33 EDT PM EDT Narrative TATYANA WARE - 07/07/2013 1:33 PM E DT Specimen requisition ordered. ??Separate Pathology report to follow Que Mejia MD PATHOLOGY/CYTOLOGY ORDERABLE S Performing Organization Address [facility]/State/ZIP Code Phon e Number [address] TATYANA WARE UPPER GI ENDOSCOPY (07/07/2013 12:55 PM EDT) [facility] gist Method Time Signature UPPER GI [facility] [employer] ENDOSCOPY Endoscopy Patient Name: Genoveva [place] ? Procedure Date: 07/07/2013 12:55 PM ? Date of : 1955 ? Age: 58 ? Order #: [id number] ? Procedure: ? Upper GI endoscopy Indications: ? Refractory GERD for Berry capsule Providers: ? Que Mejia MD, Petty maynard, ? RN, Rhonda Balderas, [...] reactions. The ? Endoscope was introduced thro [facility] the ? mouth, and advanced to the [facility] part ? of duodenum. The patient tole rated ? the procedure well. The upper GI ? endoscopy was accomplished wi [facility] ? difficulty. The patient migdalia ated the [...] Recommendation: ?- Await pathology results. ? Que Mejia MD 07/07/2013 1:19 PM This report has been signed electronically. Number of Addenda: 0 Note Initiated On: 07/07/2013 12:55 PM Specimen (Source) Anatomical Collection Method Collection Time Re ceived Time Location / / Volume Laterality 07/07/2013 12:55 PM EDT Alireza Ojeda DO GENERAL SURGICAL ORDERABLES Performing Organization Address City/State/ZIP Code Phon e Number [place] documented in this encounter Visit Diagnoses Not on filedocumented in this encounter Active and Recently Administered Medications Times are shown in EDT. PRN Medication Order 07/05/2013 07/06/2013 07/07/2013 fentaNYL 50mcg/mL injection (CANCELED) 1307 (Given - Provider: Petty Turpin RN) ONCE PRN, Starting 07/07/13 at 1307, Until 07/07/13 at 1624, Pain, Intra- Operative (Intra-Procedure), Routine midazolam (VERSED) injection (CANCELED) 1307 (Given - Provider: Petty Turpin RN) ONCE PRN, Starting 07/07/13 at 1307, Until 07/07/13 at 1624, Sleep, Intra- Operative (Intra-Procedure), Routine documented in this encounter Care Teams [employer] Relationship Specialty Start Date End Date Alireza Ojeda DO PCP - General 07/16/[address] [place] [address] [address] [facility] [address] [place] [address] documented as of this encounter
--- OUTSIDE RECORDS SUMMARY | 2022-06-22 01:35 | XMS_ITS | Encounter Summary ---
:1955 Author Organization [facility] [place] [address] Care Team Providers Name Role Phone RustyAlireza caraballo Primary Care Provider Reason for Visit Reason Comments Post Op Encounter Details Date Type Department Care Team Description 03/20/2019 Office Visit Ophthalmology at [facility] Dinora Abad, PCO ([facility] MD capsule [facility] [place] [address] [place] [address] bilateral [phone] [place], [place] [address] Social History Tobacco Use Types Packs/Day Years Used Date Never Smoker Smokeless Tobacco: Never Used Alcohol Use Standard Drinks/Week Comments No 0 (1 standard drink = 0.6 oz pure alcoho l) Sex Assigned at Date Recorded Not on file documented as of this encounter Progress Notes Dinora Abad MD - 03/20/2019 3:45 PM EDT PCO OU: S/p yag caps OD done on 03/13/19 Doing well today Planned yag caps OS today R/B/A discussed and Genoveva would like to proceed Pseudophakia OU: Observe Plan: YAG Cap OS today Follow up in 1-4 weeks documented in this encounter Miscellaneous Notes Addendum Note - Dinora Abad MD - 03/20/2019 3:45 PM EDT Addended by: DINORA ABAD on: 03/20/2019 05:32 PM Modules accepted: Orders documented in this encounter Plan of Treatment Not on filedocumented as of this encounter Procedures Procedure Name Priority Date/Time Associated Diagnosis Comme nts CAPSULOTOMY-YAG Routine 03/20/2019 5:32 PM PCO (posterior Resu lts for this LASER - OS - LEFT EDT capsule procedure are in EYE opacification), the results bilateral section. documented in this encounter Results Capsulotomy - Yag Laser - OS - Left Eye (03/20/2019 5:32 PM EDT) Anatomical Region Laterality Modality Other Specimen (Source) Anatomical Location Collection Method / Collectio n Time Received Time / Laterality Volume Narrative 03/20/2019 5:32 PM EDT Anesthesia Topical anesthesia was used. Anesthesia medications included Phenylephrine HCL 2.5%, Tropicamide 1%. Laser Information Total spots was 47. The energy was 122.0 mj. Post-op The patient tolerated the procedure well . There were no complications. Notes Procedure: Yag Capsulotomy ??left eye Diagnosis: Opacified posterior lens caps ule Location of procedure: [facility] eye clinic Surgeon: Dinora Abad Preprocedure drops: 1 drop of each alcai ne, 0.5% iopidine, Pred forte Indication: The patient is status post c ataract surgery in the operative eye and developed posterior capsular opa city limiting their vision and producing glare. ??The decision was made to try to improve their vision with YAG capsulotomy. ??We discussed the risks, benefits and alternatives to this treatment, answered Genoveva's qu estions and she signed the consent form. Procedure: ??[facility] ??A YAG capsulotomy was performed. ??The patient tolerated t he procedure well and there were no problems observed during the procedure. Spot number: 47 Total energy:122 millijoules Post operative instructions: ??Continue all current eye drops. They are scheduled for follow up within 2 to 3 we eks, but are to call in with any problems, particularly flashes, floaters , pain, decreased vision or photophobia. Caution with driving Upon Return to Eye Clinic: IOP OU MR in eye status post YAG Dinora Abad MD OPHTHALMOLOGY SERVICES ORDER TRI documented in this encounter Visit Diagnoses Diagnosis PCO (posterior capsule opacification), b ilateral documented in this encounter Care Teams Carnallite Plant Operator Relationship Specialty Start Date End Date Alireza Ojeda DO PCP - General 07/16/[address] [place] [address] documented as of this encounter
--- OUTSIDE RECORDS SUMMARY | 2022-06-22 01:35 | XMS_ITS | Encounter Summary ---
:1955 Author Organization [facility] [place] [address] Care Team Providers Name Role Phone Alireza Ojeda DO Primary Care Provider Encounter Details Date Type Department Care Team Description 07/20/2013 Unscheduled Gastroenterology at Michael Garcia, [place] [facility] [place] [facility] reflux [facility] [place] (Primary Dx) [place] [address] GASTROENTEROLO [phone] [place] [address] Social History Tobacco Use Types Packs/Day Years Used Date Never Smoker Alcohol Use Standard Drinks/Week Comments No 0 (1 standard drink = 0.6 oz pure alcoho l) Sex Assigned at Date Recorded Not on file documented as of this encounter Progress Notes Michael Garcia MD - 07/22/2013 8:09 AM EDT [id number] WIRELESS pH CAPSULE STUDY AFTER UPPER ENDOSCOPY Genoveva Whiting Female, 58 yrs, 1955 PCP: ALIREZA OJEDA AZURE PRINCIPAL SOLUTION SPECIALIST: NONE STUDY DATES: 07/07/13 to 07/09/13 INTERPRETATION DATE: 07/20/13 PROVIDER: Michael [place] ([id number]) INDICATION Persistent reflux symptoms d espite medical therapy. NOTE: This study is performed on 60 mg of Dexilant twice daily. METHODS After upper endoscopy where landmarks were visualized and measured, in a supervised setting, and after informed consent, a Berry pH telemetry capsule was deployed orally and attached to the esophageal wall at 5 cm above the upper border of the LES. No complications were noted during this procedure. After approximately six hours of recording, there was a prolonged period of hyperacidity lasting nearly eight hours. This was followed by an abrupt rise in pH to over 6.5, which was persistent throughout the entire study period. This is consistent with premature detachment of the Berry pH capsule. The patterndescribed above in the methods section is consistent with premature detachment of the Berry pH capsule. No meaningful data can be obtained. RECOMMENDATION Schedule 24-hour impedance-pH study on 60 mg of Dexilant twice daily to ensure that meaningful data is obtained on the second study. The patient will not be charged for this study. Michael Garcia MD, PhD supervisor printing and stamping, [facility] [employer] Section of Gastroenterology [place] [address] V: [phone] F: [phone] BEL/johnathon EC/CC: PCP Jo-Ann Grubbs APRN documented in this encounter Plan of Treatment Not on filedocumented as of this encounter Visit Diagnoses Diagnosis GERD (gastroesophageal reflux disease) - Primary Esophageal reflux documented in this encounter Care Teams Case Managers Relationship Specialty Start Date End Date Alireza Ojeda DO PCP - General 07/16/[address] [place] [address] [address] [place] [address] documented as of this encounter
--- OUTSIDE RECORDS SUMMARY | 2022-06-22 01:35 | XMS_ITS | Encounter Summary ---
:1955 Author Organization [facility] [address] Care Team Providers Name Role Phone Alireza Ojeda DO Primary Care Provider Encounter Details Date Type Department Care Team Description 05/18/2013 Telephone Gastroenterology at [facility] [place] [place] Jo[facility] Grubbs [facility] [place] [address] GASTROENTEROLOGY [phone] DEPT. [place], [place] [address] (Wo rk) Social History Tobacco Use Types Packs/Day Years Used Date Never Smoker Sex Assigned at Date Recorded Not on file documented as of this encounter Miscellaneous Notes Telephone Encounter - Jo-Ann Grubbs RN - 05/18/2013 10:16 PM EDT Pt emailed me. dexilant not working. Asked if she would like to consider further testing. Ph on medsand/or emptying study. Labs wnl. documented in this encounter Plan of Treatment Not on filedocumented as of this encounter Visit Diagnoses Not on filedocumented in this encounter Care Teams Golf Club Assembler Relationship Specialty Start Date End Date Alireza Ojeda DO PCP - General 07/16/[address] [place] [address] documented as of this encounter
--- OUTSIDE RECORDS SUMMARY | 2022-06-22 01:35 | XMS_ITS | Encounter Summary ---
:1955 Author Organization [facility] [place] [address] Care Team Providers Name Role Phone Rusty Alireza BERGMAN Primary Care Provider Encounter Details Date Type Department Care Team Description 05/25/2013 Orders Only Gastroenterology at [facility] [address], GERD [facility] Shannan maloney APRN ([place] [address] [facility] MEDICAL reflux disease) [phone] CENTER (Primary Dx) [place] [address] Social History Tobacco Use Types Packs/Day Years Used Date Never Smoker Sex Assigned at Date Recorded Not on file documented as of this encounter Plan of Treatment Not on filedocumented as of this encounter Procedures Procedure Name Priority Date/Time Associated Diagnosis Comme nts UPPER GI ENDOSCOPY Routine 05/25/2013 1:05 PM EDT GERD (gastro esophageal reflux disease) documented in this encounter Results NM gastric emptying scan (07/10/2013 12:35 PM EDT) Anatomical Region Laterality Modality Other Specimen (Source) Anatomical Collection Method Collection Time Re ceived Time Location / / Volume Laterality 07/10/2013 12:35 PM EDT Narrative 07/10/2013 1:22 PM EDT Examination GASTRIC EMPTYING SCAN Clinical History dyspepsia sx ?gastroparesis Comparison None ?? Technique A standard meal was labeled with 0.5 mCi of technetium-99m sulfur colloid and ingested. Images of the stomach were obt ained in the anterior and posterior projections immediately thereafter and o ne, two and four hours later. Findings Activity fills the stomach in the initia l image. Small bowel is visible at one hour. There is minimal activity present in the stomach at three hours. Quantitative Analysis Two hours: 49% remains in the stomach (n ormal <60%) 3 hours: 1% remains in the stomach (norm al <10%) Impression Normal gastric emptying. Procedure Note Shane Rodríguez MD - 07/10/2013Formatti ng of this note might be different from the original. Examination GASTRIC EMPTYING SCAN Clinical History dyspepsia sx ?gastroparesis Comparison None Technique A standard meal was labeled with 0.5 mCi of technetium-99m sulfur colloid and ingested. Images of the stomach were obt ained in the anterior and posterior projections immediately thereafter and o ne, two and four hours later. Findings Activity fills the stomach in the initia l image. Small bowel is visible at one hour. There is minimal activity present in the stomach at three hours. Quantitative Analysis Two hours: 49% remains in the stomach (n ormal <60%) 3 hours: 1% remains in the stomach (norm al <10%) Impression Normal gastric emptying. Michael Garcia MD IMG NM ORDERABLES documented in this encounter Visit Diagnoses Diagnosis GERD (gastroesophageal reflux disease) - Primary Esophageal reflux GERD (gastroesophageal reflux disease) Esophageal reflux documented in this encounter Care Teams Guard Chief Relationship Specialty Start Date End Date Alireza Ojeda DO PCP - General 07/16/[address] [place] [address] documented as of this encounter
--- OUTSIDE RECORDS SUMMARY | 2022-06-22 01:35 | XMS_ITS | Encounter Summary ---
:1955 Author Organization [place] [address] Care Team Providers Name Role Phone Alireza Ojeda DO Primary Care Provider Encounter Details Date Type Department Care Team Description 07/10/2013 Office Visit Gastroenterology at [facility] Michael Garcia, Esophageal reflux [facility] Shannan maloney MD (Primary Dx) [place] [address] [place] [address] [facility] [place] [address] Social History Tobacco Use Types Packs/Day Years Used Date Never Smoker Alcohol Use Standard Drinks/Week Comments No 0 (1 standard drink = 0.6 oz pure alcoho l) Sex Assigned at Date Recorded Not on file documented as of this encounter Progress Notes Michael Garcia MD - 11/15/2013 1:08 PM EST Procedure visits only documented in this encounter Plan of Treatment Not on filedocumented as of this encounter Visit Diagnoses Diagnosis Esophageal reflux - Primary documented in this encounter Care Teams Residence Life Director Relationship Specialty Start Date End Date Alireza Ojeda DO PCP - General 07/16/[address] [place], [place] [address] documented as of this encounter
--- OUTSIDE RECORDS SUMMARY | 2022-06-22 01:35 | XMS_ITS | Encounter Summary ---
:1955 Author Organization [facility] [place] [address] Care Team Providers Name Role Phone Rusty Alireza BERGMAN Primary Care Provider Reason for Visit Reason Comments Skin Check Encounter Details Date Type Department Care Team Description 06/26/2013 Office Visit Dermatology Sergo Valle, History of basal cell [address] [facility] MD carcinoma (Primary [address] Dx) [place], [place] DERMATOLOGY [address] [place] [address] [phone] (Wo rk) Social History Tobacco Use Types Packs/Day Years Used Date Never Smoker Sex Assigned at Date Recorded Not on file documented as of this encounter Progress Notes Sergo Valle MD - 06/26/2013 8:51 AM EDT Problem is: 1. Two-year skin checkup. 2. History of BCCAs, right forehead, right tip of nose, left shoulder, right lateral eyebrow, previously treated in [place]. 3. History of BCCA, right medial cheek, July 2009, per [facility]. Rosalinda follows up for a repeat skin check. It has been two years since I saw her last. She has been doing well. Physical examination reveals a benign examination of the head and the neck, the back, hands, arms, and forearms. She is freckled, blue eyed with very fair skin but well-healed surgical scars and no evidence of any new or recurrent lesions. Assessment and Plan: History of nonmelanoma cutaneous malignancies. a. Patient reassured about benign examination today. b. Recommend now that I see her back on a p.r.n. basis. I would be happy to see her back at her request or that of Dr. Ojeda. COPY: Alireza Ojeda D.O. documented in this encounter Plan of Treatment Not on filedocumented as of this encounter Visit Diagnoses Diagnosis History of basal cell carcinoma - Primar y Personal history of other malignant neop lasm of skin documented in this encounter Care Teams Solderer Production Line Relationship Specialty Start Date End Date Alireza Ojeda DO PCP - General 07/16/[address] [place] [address] documented as of this encounter
--- OUTSIDE RECORDS SUMMARY | 2022-06-22 01:36 | XMS_ITS | Encounter Summary ---
:1955 Author Organization [facility] Address [address] [place] [address] Care Team Providers Name Role Phone Unknown, Provider Primary Care Provider Encounter Details Date Type Department Care Team Description 12/12/2012 Results Only [facility] [place] Andrade Uziel L, DO [phone] [facility] [place], [place] [address] (Wo rk) Social History Tobacco Use Types Packs/Day Years Used Date Never Assessed Sex Assigned at Date Recorded Not on file documented as of this encounter Plan of Treatment Not on filedocumented as of this encounter Procedures Procedure Name Priority Date/Time Associated Diagnosis Comme [facility] SURGICAL PATHOLOGY Routine 12/12/2012 16:41 Resul ts for this EDT procedure are i n the results section. documented in this encounter Results SURGICAL PATHOLOGY (12/12/2012 16:41 EDT) Pathology SURGICAL PATHOLOGY REPORT JESSA BENJAMIN Report: Reports generated via electronic interface contain taye ginal data; LAB however they are lacking the format of the original re port. Caution should be taken when reading/interpreting unfo rmatted reports. Name: ? CARRILLO WHITING ? Accession #: ? [id number] ? : ? 1955 (Age: 57) ??F ? Collect Date: ? 12/12/2012 ? Location: ? [facility] ? Receive Date: ? 013 ? Provider: UZIEL ANDRADE DO Copy to: PAOLA GOVEA DO ? Final Pathologic Diagnosis: A. ?Duodenum, biopsies: 1. ?Duodenal mucosa with no specific path ologic features. B. ?Stomach, antrum, biopsies: 1. ?Antral muco sa with chronic focally active gastritis and reactive changes. 2. ? Immunohistochemical staining is negative for Helicobacter pylori. ?? See comment. ? Comment: ? Immunohistochemical staining was performed on t his case to further characterize the lesion. ??P ositive and negative controls stained appropriately. Block ?Antibody (Clone) ? Result ? B2 ?H. p ylori (polyclonal, [place]) ?Negative. ? (Dr. Lester)/mms ? NOTE: ??One or more of the reagents used in immunohistochemical testing in this case may not have been cleared or approved by the U.S. Food and Drug Administration (FDA). ??The FDA has determined that such clearance or approval is not necessary. ??These tests are used for clinical purposes. ??They should not be regarded as investigational or for research. ??These r eagents' performance characteristics have been determined by [facility]. ??This laboratory is certified unde r the Clinical Laboratory Improvement Amendments of 1988 (CLIA-88) as qualified to perform high complexity clinical laboratory testing. ?? Document reviewed and electronically signed by: CORTES HESTER MD Report ??Date: 12/16/2012 11:37 By the signature above, the attending physician certif ies that he/she has personally conducted a gross and/or microscopic examin ation of the described specimens and rendered or confirmed the above diagnosi s. Specimen(s) Received: A. ?Duodenal bxs (#1) B. ? Bxs gastric antrum (#2) Clinical History: ? Recalcitrant GERD Gross Description: ? Received in formalin labelled Genoveva Whiting and 1-duodenal bx are two de jesus-pink soft tissue fra gments that measure 0.2 x 0.1 x 0.1 cm and 0.3 x 0.2 x 0.2 cm. ??The specimen is submitted entirely as (A1) . Received in formalin chelsea d Johanne Genoveva and 2-bx gastric antrum are four de jesus-pink soft tissue fragments that range in size from 0.2 x 0.1 x 0.1 cm to 0.4 x 0.3 x 0.2 cm. ??The specimen is submitt ed entirely as (B1) and (B2). (Dr. Malik)/[facility] End of Report Specimen Performing Organization Address City/State/ZIP Code Phon e Number [facility] [address] [place] [address] SERVICES [facility] [address] [place] [address] documented in this encounter Visit Diagnoses Not on filedocumented in this encounter Care Teams Asbestos Textile Supervisor Relationship Specialty Start Date End Date Unknown, Provider, PCP - General 04/04/09 12/13/15 documented as of this encounter
--- OUTSIDE RECORDS SUMMARY | 2022-06-22 01:36 | XMS_ITS | Encounter Summary ---
:1955 Author Organization [facility] Address [address] [place] [address] Care Team Providers Name Role Phone Alireza Ojeda DO Primary Care Provider Encounter Details Date Type Department Care Team Description 01/30/2019 Hospital Encounter [facility] [place] Unknown, Provider, [facility] [address] [facility] [phone] [place] [address] (Work) [phone] Social History Tobacco Use Types Packs/Day Years Used Date Never Assessed Sex Assigned at Date Recorded Not on file documented as of this encounter Discharge Disposition Disposition Code Departure Means Destination Home or Self Half-Way documented in this encounter Plan of Treatment Not on filedocumented as of this encounter Visit Diagnoses Not on filedocumented in this encounter Care Teams Schedule Analyst Relationship Specialty Start Date End Date Alireza Ojeda DO PCP - General 12/14/15 [address] [place] [address] documented as of this encounter
--- OUTSIDE RECORDS SUMMARY | 2022-06-22 01:36 | XMS_ITS | Encounter Summary ---
:1955 Author Organization [facility] Address [address] [place] [address] Care Team Providers Name Role Phone Unknown, Provider Primary Care Provider Encounter Details Date Type Department Care Team Description 04/04/2009 Orders Only [facility] Michael Nuno, UPPER LEATHER SORTER Services - [place] Royal [address] [address] Social History Tobacco Use Types Packs/Day Years Used Date Never Assessed Sex Assigned at Date Recorded Not on file documented as of this encounter Plan of Treatment Not on filedocumented as of this encounter Procedures Procedure Name Priority Date/Time Associated Diagnosis Comme nts CYTOPATHOLOGY Routine 04/04/2009 0:00 EDT Results for this procedure are i n the results section . documented in this encounter Results CYTOPATHOLOGY (04/04/2009 0:00 EDT) Pathology Report: CYTOPATHOLOGY REPORT ? JESSA ALL EN ? LAB Reports generated via electr [employer] interface contain original data; ? however they are lacking the format of the original report. ? Caution should be taken when reading/interpreting unformatted reports. ? Name: ? CARRILLO WHITING ? Accession #: ? [id number] ? : ? 1955 (Age: 54) ??F ?Collect Date: ? 04/04/2009 ? Location: ? [facility] ? Receive Date: ? 04/04/2009 ? Provider: ?ANU M RO EDUARDETT UPPER LEATHER SORTER ? Copy to: ? Specimen/Source: ? Pap Test, Vagina, ThinPrep Imaging System with manual ?? evaluation ? Last Menstrual Period: ? 04/06 ? Treatment History: ? Hysterectomy: 04/06 ? SPECIMEN ADEQUACY ? Satisfactory for Eval uation ? - assessment of transformati on zone component not applicable ( e.g. atrophy, ? vaginal sample, hysterectomy ) ? GENERAL CATEGORIZATION ? Negative for Intraepi thelial Lesion or Malignancy ? Document reviewed and electr onically signed by: ? Gregory Kaba, CT( CP) ? Report Date: ??07/10/ 2009 15:54 ? End of Report ? Specimen Performing Organization Address City/State/[facility] Code Phon e Number [facility] [address] [place] [address] SERVICES [facility] [address] [place] [address] documented in this encounter Visit Diagnoses Not on filedocumented in this encounter Care Teams River Rat Relationship Specialty Start Date End Date Unknown, Provider, PCP - General 04/04/09 documented as of this encounter
--- OUTSIDE RECORDS SUMMARY | 2022-06-22 01:36 | XMS_ITS | Encounter Summary ---
:1955 Author Organization [facility] Address [address] [place] [address] Care Team Providers Name Role Phone Unknown, Provider Primary Care Provider Encounter Details Date Type Department Care Team Description 12/09/2015 Results Only [facility] Lupe Uziel L, DO [phone] [facility] [facility] [address] [place], [place] [address] (Wo rk) Social History Tobacco Use Types Packs/Day Years Used Date Never Assessed Sex Assigned at Date Recorded Not on file documented as of this encounter Plan of Treatment Not on filedocumented as of this encounter Procedures Procedure Name Priority Date/Time Associated Diagnosis Comme [facility] SURGICAL PATHOLOGY Routine 12/09/2015 6:03 EST Re sults for this procedure are i n the results section. documented in this encounter Results SURGICAL PATHOLOGY (12/09/2015 6:03 EST) Pathology Report: SURGICAL PATHOLOGY REPORT [facility] Reports generated via electronic interface conta in original data; CENTER LABORATORY however they are lacking the format of the original re port. SERVICES Caution should be taken when reading/interpreting unfo rmatted reports. Name: ? CARRILLO WHITING ? Accession #: ? [id number] ? : ? 1955 (Age: 6 0) ??F ? Collect Date: ? 12/09/2015 ? Location: ? [facility] ? Receive Date: ? 12/10/19 16 ? Provider: UZIEL ANDREA DO Copy to: PAOLA GOVEA DO ? Final Pathologic Diagnosis: STOMACH, ANTRUM, BIOPSY: - ??Gastric antral mucosa with reactive (chemical) gas tropathy and chronic inflammation. See comment. - ??No evidence of H. pylori on H&E stain. Comment: ----- Immunoperoxidase staining wa s performed on this case to further characterize the lesion. ??Positive and negative controls stained appro priately. ? ANTIBODY(CLONE)(BLOCK):RESULT H. pylori (Rabbit Monoclonal (SP48), [place]) (block 2 ): ??Negative ? NOTE: ??One or more of the reagents used in imm unoperoxidase testing in this case may not have been cleared or approved by the U.S. Food and Drug Administration (FDA). ??The FDA has determined that such clearance or approval is not necessary. ??These tests are used for clinical purposes. ??They should not be regarded as investigational or for research. ??These r eagents' performance characteristics have been determined by the [facility]. ??This laboratory is certified under the Clinical Laboratory Improvement Amendments of 1988 (CLIA-88) as qualified to per form high complexity clinical laboratory testing. ?? ___ Document reviewed and electronically signed by: ILDA YEAGER MD Report ??Date: 12/13/2015 14:55 By the signature above, the attending physician certif ies that he/she has personally conducted a gross and/or microscopic examin ation of the described specimens and rendered or confirmed the above diagnosi s. Specimen(s) Received: Gastric antrum bx Clinical History: GERD; clinical diagnosis code: K21.5 Gross Description: ? Received in formalin labelled with proper patient identification (initials G, D) and gastric antrum bx are four p ink-de jesus tissues (0.2 x 0.2 x 0.2 cm to 0.5 x 0.2 x 0.2 cm). Entirely submitted in 1 and 2. Ilda Villegas 12/12/2015 9:33 AM End of Report Specimen Performing Organization Address City/State/ZIP Code Phon e Number [facility] [address] [place] [address] SERVICES documented in this encounter Visit Diagnoses Not on filedocumented in this encounter Care Teams Test Man Relationship Specialty Start Date End Date Unknown, Provider, PCP - General 04/04/09 12/13/15 documented as of this encounter
--- OUTSIDE RECORDS SUMMARY | 2022-06-22 01:36 | XMS_ITS | Clinical Summary ---
:1955 Author Organization [facility] Address [address] [place] [address] Care Team Providers Name Role Phone Alireza Ojeda DO Primary Care Provider Social History Tobacco Use Types Packs/Day Years Used Date Never Assessed Sex Assigned at Date Recorded Not on file Plan of Treatment Health Maintenance Due Date Last Done Comments COVID-19 Vaccine (1) 02/26/1960 Fall Risk Screening 02/26/2020 Hepatitis C Screen Completed 01/29/2022 Care Teams Network Consultant Relationship Specialty Start Date End Date Alireza Ojeda DO PCP - General 12/14/15 [address] [place], [place] [address]
--- OUTSIDE RECORDS SUMMARY | 2022-06-22 01:36 | XMS_ITS | Encounter Summary ---
:1955 Author Organization [facility] Address [address] [place] [address] Care Team Providers Name Role Phone Unknown, Provider Primary Care Provider Encounter Details Date Type Department Care Team Description 11/17/2010 Results Only [facility] Claire Owen MD Laboratory Services - [address] [place] [address] 0 [facility] [place] [address] [phone] Social History Tobacco Use Types Packs/Day Years Used Date Never Assessed Sex Assigned at Date Recorded Not on file documented as of this encounter Plan of Treatment Not on filedocumented as of this encounter Procedures Procedure Name Priority Date/Time Associated Diagnosis Comme nts CYTOPATHOLOGY Routine 11/17/2010 0:00 EST Results for this procedure are i n the results section . documented in this encounter Results CYTOPATHOLOGY (11/17/2010 0:00 EST) Pathology Report: CYTOPATHOLOGY REPORT ? [facility] ? LAB Reports generated via electr onic interface contain original data; ? however they are lacking the format of the original report. ? Caution should be taken when reading/interpreting unformatted reports. ? Name: ? CARRILLO BEARD ? Accession #: ? [id number] ? : ? 1955 (Age: 55) ??F ?Collect Date: ? 11/17/2010 ? Location: ? [facility] ? Receive Date: ? 11/20/2010 ? Provider: ?RAVI ARAIZA MD ? Copy to: ? Specimen/Source: ? Pap Test, Cervix/Endocervix, ThinPrep Imaging System ? with manual evaluation ? Last Menstrual Period: ? 11/05/2010 ? SPECIMEN ADEQUACY ? GENERAL CATEGORIZATION ? COMMENT ? A result for this lavon ple was initially reported on 11/21/10 at 15:24. On ? 12/15/10, we were notified th at [facility] that the sample was submitted with incorrect patient identification. No sample was actually ? collected from this patient, and all charges related to this sample for this ? patient have been credited. ? Document reviewed and electr onically signed by: ? Christopher You CT(ASCP) ? Report Date: ??2010 14:23 ? HPV with Pap Test ? Date Ordered: ? 0 11/21/2010 ? Status: ?? Signed Out ?Date Complete: ? 12/15/2010 ? By: ??System Interface ? Date Reported: ? 12/15/2010 ? * Amended * ? Interpretation ? RESULT: CHARGED TO INCORRECT MEDICAL RECORD NUMBER, CREDIT ISSUED. ? Comments ? Document reviewed and electr onically signed by: ? System Interface ? Report date: 18/ 11 ? By the signature above, the attending physician certifies that he/she has ? personally conducted a gross and/or microscopic examination of the described ? specimens and rendered or co nfirmed the above diagnosis. ? Amendments for HPV with Pap Test (11/21/2010) ? Amended: ??12/15/2010 by Sys tem Interface ? Reason: ? HPV Results Re ported ? Previous Signout Date: ??02/ ? End of Report ? Specimen Performing Organization Address City/State/[facility] Code Phon e Number [facility] [address] [place] [address] SERVICES [facility] [address] [place] [address] documented in this encounter Visit Diagnoses Not on filedocumented in this encounter Care Teams Vest Presser Relationship Specialty Start Date End Date Unknown, Provider, PCP - General 04/04/09 documented as of this encounter
--- OUTSIDE RECORDS SUMMARY | 2022-06-22 01:36 | XMS_ITS | Encounter Summary ---
:1955 Author Organization [facility] Address [address] [place] [address] Care Team Providers Name Role Phone Alireza Ojeda DO Primary Care Provider Encounter Details Date Type Department Care Team Description 01/29/2022 Lab Requisition [facility] Outr Resulting Lab, Pathology & Laboratory Provider [facility] [address] [place], [place] [address] Social History Tobacco Use Types Packs/Day Years Used Date Never Assessed Sex Assigned at Date Recorded Not on file documented as of this encounter Plan of Treatment Not on filedocumented as of this encounter Procedures Procedure Name Priority Date/Time Associated Comments Diagnosis HIV 1/2 ANTIGEN AND Routine 01/29/2022 12:18 Resu lts for this ANTIBODY, 4TH EDT procedure are in GENERATION the results section. documented in this encounter Results HIV 1/2 ANTIGEN AND ANTIBODY, 4TH GENERATION (01/29/2022 12:18 EDT) HIV 1 and 2 NegativeComment: If Negative [facility] Antibody/p24 acute HIV-1 LABORATORY Antigen, 4th infection is SERVICES Generation suspected in a high risk patient, submit plasma specimen for HIV-1 RNA quantitation test. Specimen Blood - Venous blood (substance) Narrative [facility] LABORATORY SERVICES - 01/30/2022 10:37 EDT Fourth Generation assay performed on the Siemens Centaur XPT. Performing Organization Address City/State/ZIP Code Phon e Number [facility] [address] [place] [address] SERVICES documented in this encounter Visit Diagnoses Not on filedocumented in this encounter Care Teams Talent Acquisition Partner Relationship Specialty Start Date End Date Alireza Ojeda, DO PCP - General 12/14/15 [address] [place] [address] documented as of this encounter
--- OUTSIDE RECORDS SUMMARY | 2022-06-22 01:36 | XMS_ITS | Encounter Summary ---
:1955 Author Organization [facility] Address [address] [place] [address] Care Team Providers Name Role Phone Alireza Ojeda Primary Care Provider Encounter Details Date Type Department Care Team Description 11/08/2020 Lab Requisition [facility] Outr Resulting Lab, Pathology & Laboratory Provider [facility] [address] [place], [place] [address] Social History Tobacco Use Types Packs/Day Years Used Date Never Assessed Sex Assigned at Date Recorded Not on file documented as of this encounter Plan of Treatment Not on filedocumented as of this encounter Procedures Procedure Name Priority Date/Time Associated Diagnosis Comme nts COVID-19 TEST [facility] Today 11/08/2020 8:32 EST LAB PCR COVID-19 TESTING Routine 11/08/2020 8:32 EST Resu lts for this procedure are i n the results section. documented in this encounter Results COVID-19 TEST [facility] LAB PCR (11/08/2020 8:32 EST) Specimen Swab - Entire nasopharynx (body structur e) Performing Organization Address City/State/ZIP Code Phon e Number [facility] [address] [place] [address] SERVICES COVID-19 TESTING (11/08/2020 8:32 EST) COVID-19 rt-PCR Negative Negative [facility] Result Comment: [facility]ORY This test has not been FDA c leared or approved. This test has been authorized by FDA under an EUA for use by authorized laboratories. This test has been authorized only for detection of nucleic acid fro SERVICES m 2018-, not for any oth er viruses or pathogens. This test is only authorized for the duration of the declaration that circumstances exist justifying the authorization of emergency use of in vitro d iagnostic tests for detectio n and/or diagnosis of 2019-nCoV under section 564(b)(1) of Act, 21 U.S.C ?? 360bbb-3(b) (1), unless the authorization is terminated or revoked sooner. Negative results do not prec lude 2019-nCoV infection and should not be used as the sole basis for treatment or other patient management decisions. Negative results must be combined with clinical observa tions, patient history, and epidemiological informatio n. Testing was performed using the naseem SARS-CoV-2 assay ([employer] on the Naseem 6800 System Performing Lab Naseem [address] [facility] Lab [facility] SERVICES Specimen Swab Performing Organization Address City/State/ZIP Code Phon e Number [facility] [address] [place] [address] SERVICES documented in this encounter Visit Diagnoses Not on filedocumented in this encounter Care Teams Mat Repairer Relationship Specialty Start Date End Date Alireza Ojeda DO PCP - General 12/14/15 [address] [place], [place] [id number] documented as of this encounter
--- OUTSIDE RECORDS SUMMARY | 2022-06-22 01:36 | XMS_ITS | Encounter Summary ---
:1955 Author Organization [facility] Address [address] [place] [address] Care Team Providers Name Role Phone Unknown, Provider Primary Care Provider Encounter Details Date Type Department Care Team Description 07/27/2011 Results Only [facility]- [place] Andrade Uziel L, DO [phone] [facility] [place], [place] [address] (Wo rk) Social History Tobacco Use Types Packs/Day Years Used Date Never Assessed Sex Assigned at Date Recorded Not on file documented as of this encounter Plan of Treatment Not on filedocumented as of this encounter Procedures Procedure Name Priority Date/Time Associated Diagnosis Comme [facility] SURGICAL PATHOLOGY Routine 07/27/2011 0:00 EDT Re sults for this procedure are i n the results section. documented in this encounter Results SURGICAL PATHOLOGY (07/27/2011 0:00 EDT) Pathology Report: SURGICAL PATHOLOGY REPORT JESSA LÓPEZEVITA Reports generated via electronic interface contain taye ginal data; LAB however they are lacking the format of the original re port. Caution should be taken when reading/interpreting unfo rmatted reports. Name: ? CARRILLO WHITING ? Accession #: ? [id number] ? : ? 1955 (Age: 56) ??F ? Collect Date: ? 07/27/2011 ? Location: ? [facility] ? Receive Date: ? 011 ? Provider: UZIEL ANDRADE DO Copy to: TRI GARY MD ? Final Pathologic Diagnosis: A. ?Duodenum, biopsy: 1. ?Chronic non-specific duodenitis. 2. ? Rare mild villous blunting 3. ? Slight increase in intraepithelial lymphocyte s. ??See comment. B. ?Gastric antrum, biopsy: 1. ?Gastric antral mucosa with no specifi c pathologic features. Comment: ? The increase in intraepithelial l ymphocytes may be due to drug-related, like NSAID, or could represe nt an early manifestation of sprue. Suggest clinical correlation. (Dr. Rene)/[facility] Document reviewed and electronically signed by: ANGELITO RENE MD Report ??Date: 07/30/2011 17:40 By the signature above, the attending physician certif ies that he/she has personally conducted a gross and/or microscopic examin ation of the described specimens and rendered or confirmed the above diagnosi s. Specimen(s) Received: A. ?Duodenum bx B. ? Gastric antrum bx Clinical History: ? Dyspepsia, family hx colon cancer Gross Description: ? Received in formalin labelled Gr iffith, Genoveva and duodenum bx are four de jesus-brown soft tissue f ragments that range from 0.1 x 0.1 x 0.1 cm to 0.5 x 0.3 x 0.2 cm. ??The specimen is entirely submitt ed in cassette (A1) and (A2). Received in formalin labelled Whiting, Genoveva and gastric antrum bx are three de jesus-brown soft tissue fragments that range from 0.2 x 0.2 x 0.1 cm to 0.4 x 0.2 x 0.1 cm. ??The specimen is entirely submitted i n cassette (B). ??(Dr. Levy)/mpl End of Report Specimen Performing Organization Address City/State/ZIP Code Phon e Number [facility] [address] [place] [address] SERVICES [facility] [address] [place] [address] documented in this encounter Visit Diagnoses Not on filedocumented in this encounter Care Teams Locker Room Attendant Relationship Specialty Start Date End Date Unknown, Provider, PCP - General 04/04/09 documented as of this encounter
--- OUTSIDE RECORDS SUMMARY | 2022-06-22 01:36 | XMS_ITS | Encounter Summary ---
:[address] [facility] Address [address] [place] [address] Care Team Providers Name Role Phone Rusty Alireza Deven Primary Care Provider Encounter Details Date Type Department Care Team Description 08/03/2016 Results Only [facility]- [facility] Uziel Andrade DO [phone] [facility] [place] [address] (Wo rk) Social History Tobacco Use Types Packs/Day Years Used Date Never Assessed Sex Assigned at Date Recorded Not on file documented as of this encounter Plan of Treatment Not on filedocumented as of this encounter Procedures Procedure Name Priority Date/Time Associated Diagnosis Comme [facility] SURGICAL PATHOLOGY Routine 08/03/2016 6:43 EDT Re sults for this procedure are i n the results section. documented in this encounter Results SURGICAL PATHOLOGY (08/03/2016 6:43 EDT) Pathology Report: SURGICAL PATHOLOGY REPORT [facility] Reports generated via electronic interface contain taye ginal data; LABORATORY however they are lacking the format of the original re port. SERVICES Caution should be taken when reading/interpreting unfo rmatted reports. Name: ? CARRILLO WHITING ? Accession #: ? [id number] ? : ? 1955 (Age: [age]) ??F ? Collect Date: ? 08/03/2016 ? Location: ? [facility] ? Receive Date: ? 08/03/20 16 ? Provider: UZIEL ANDRADE DO Copy to: ALIREZA GOVEA DO ? Final Pathologic Diagnosis: COLON, ASCENDING, POLYP, BIOPSY: - ??Tubular adenoma. Document reviewed and electronically signed by: BABS LOCKE MD Report ??Date: 08/08/2016 16:18 By the signature above, the attending physician certif ies that he/she has personally conducted a gross and/or microscopic examin ation of the described specimens and rendered or confirmed the above diagnosi s. Specimen(s) Received: Ascending colon polyp Clinical History: Family hx colon cancer; clinical diagnosis code: Z80.0 Gross Description: ? Received in formalin labelled with proper patient identification (initials G, D) and ascending colon polyp is a single pi nk-de jesus tissue fragment (0.6 x 0.3 x 0.2 cm). Submitted intact in 1. ELIER Canseco ([facility]) 08/06/2016 8:36 AM End of Report Specimen Performing Organization Address City/State/ZIP Code Phon e Number [facility] [address] [place] [address] SERVICES documented in this encounter Visit Diagnoses Not on filedocumented in this encounter Care Teams Senior Environmental Technician Relationship Specialty Start Date End Date Alireza Govea DO PCP - General 12/14/15 [address] [place] [address] documented as of this encounter
--- OUTSIDE RECORDS SUMMARY | 2022-06-22 01:36 | XMS_ITS | Encounter Summary ---
:1955 Author Organization [facility] Address [address] [place] [address] Care Team Providers Name Role Phone Alireza Ojeda DO Primary Care Provider Encounter Details Date Type Department Care Team Description 04/06/2016 Results Only [facility] Ashley Britt, [facility] [phone] [facility] [place] [address] (Wo rk) Social History Tobacco Use Types Packs/Day Years Used Date Never Assessed Sex Assigned at Date Recorded Not on file documented as of this encounter Plan of Treatment Not on filedocumented as of this encounter Procedures Procedure Name Priority Date/Time Associated Diagnosis Comme nts PAP TEST- RESULT Routine 04/06/2016 0:00 EDT Resu lts for this ONLY procedure are i n the results section. documented in this encounter Results PAP TEST- RESULT ONLY (04/06/2016 0:00 EDT) Pathology Report: CYTOPATHOLOGY REPORT [facility] Reports generated via electronic interface contain taye ginal data; SERVICES however they are lacking the format of the original re port. Caution should be taken when reading/interpreting unfo rmatted reports. Name: ? GENOVEVA WHITING ? Accession #: ? [id number] : ? 1955 (Age: [age]) ??F ?Collect Date: ? 2015 Location: ? [facility] ? Receive Date : ? 04/09/2016 Provider: ?ASHLEY VALERIA HOTEL ASSISTANT GENERAL MANAGER Copy to: ?ALIREZA OJEDA DO ? Specimen/Source: ? Pap Test, Vagina, ThinPrep Imaging System with manual evaluation Last Menstrual Period: ? 2006 Previous Gynecologic Pathology: ? Ovarian adenocarcinoma: 2006 Treatment History: ? Hysterectomy: S/P for ??2006 path ? SPECIMEN ADEQUACY ? Satisfactory for Evaluation - assessment of transformation zone component not appl icable ( e.g. atrophy, vaginal sample, hysterectomy) GENERAL CATEGORIZATION ? Negative for Intraepithelial Lesion or Malignan cy ? Document reviewed and electronically signed by: ? GRICEL Valencia(ASCP) ? Report Date: ??04/19/2016 12:17 End of Report Specimen Performing Organization Address City/State/ZIP Code Phon e Number [facility] [address] [place] [address] SERVICES documented in this encounter Visit Diagnoses Not on filedocumented in this encounter Care Teams Tire Balancer Relationship Specialty Start Date End Date Alireza Ojeda DO PCP - General 12/14/15 [address] [place], [place] [address] documented as of this encounter
--- OUTSIDE RECORDS SUMMARY | 2022-06-22 01:36 | XMS_ITS | Encounter Summary ---
:1955 Author Organization [facility] Address [address] [place] [address] Care Team Providers Name Role Phone Alireza Ojeda Primary Care Provider Encounter Details Date Type Department Care Team Description 01/03/2021 Lab Requisition [facility] Outr Resulting Lab, Pathology & Laboratory Provider [facility] [address] [place], [place] [address] Social History Tobacco Use Types Packs/Day Years Used Date Never Assessed Sex Assigned at Date Recorded Not on file documented as of this encounter Plan of Treatment Not on filedocumented as of this encounter Procedures Procedure Name Priority Date/Time Associated Diagnosis Comme nts COVID-19 TEST [facility] Today 01/02/2021 14:15 LAB PCR EDT COVID-19 TESTING Routine 01/02/2021 14:15 Results for this EDT procedure are i n the results section. documented in this encounter Results COVID-19 TEST [facility] LAB PCR (01/02/2021 14:15 EDT) Specimen Swab - Entire nasopharynx (body structur e) Performing Organization Address City/State/ZIP Code Phon e Number [facility] [address] [place] [address] SERVICES COVID-19 TESTING (01/02/2021 14:15 EDT) COVID-19 rt-PCR Negative Negative [facility] Result Comment: [facility] This test has not been FDA c leared or approved. This test has been authorized by FDA under an EUA for use by authorized laboratories. This test has been authorized only for detection of nucleic acid fro SERVICES m 2018-nCoV, not for any oth er viruses or [...] tions, patient history, and epidemiological informatio n. This test was developed and its performance characteristics determined by [facility]. It has not been cleared or approved by the US Food and Drug Administration. FDA does not require this test to go through premarket FDA review. This t est is used for clinical purposes. It should not be regarded as investigational or for research. This laboratory is certified under the Clinical Laboratory Improvement Amendm ents (CLIA) as qualified to perform high complexity clinical laboratory testing. This test is based on the CD C COVID-19 Emergency Use Authorization (EUA) assay, with minor modification as defined by the FDA Performed on the TrackRo 7 Flex RT-PCR System. Performing Lab [facility] Lab [facility] SERVICES Specimen Swab Performing Organization Address City/State/ZIP Code Phon e Number [facility] [address] [place] [address] SERVICES documented in this encounter Visit Diagnoses Not on filedocumented in this encounter Care Teams Cycle Analyst Relationship Specialty Start Date End Date Alireza Ojeda DO PCP - General 12/14/15 [address] [place], [place] [address] documented as of this encounter
--- OUTSIDE RECORDS SUMMARY | 2022-06-22 01:36 | XMS_ITS | Encounter Summary ---
:1955 Author Organization [facility] Address [address] [place] [address] Care Team Providers Name Role Phone Alireza Ojeda DO Primary Care Provider Encounter Details Date Type Department Care Team Description 01/29/2022 Lab Requisition [facility] Outr Resulting Lab, Pathology & Laboratory Provider [facility] [address] [place], [place] [address] Social History Tobacco Use Types Packs/Day Years Used Date Never Assessed Sex Assigned at Date Recorded Not on file documented as of this encounter Plan of Treatment Not on filedocumented as of this encounter Procedures Procedure Name Priority Date/Time Associated Diagnosis Comme nts HEPATITIS C AB W Routine 01/29/2022 12:18 Results for this REFLEX TO HCV RNA EDT procedure are in BY PCR the results section. documented in this encounter Results HEPATITIS C AB W REFLEX TO HCV RNA BY PCR (01/29/2022 12:18 EDT) Pathologist Sig nature Hep C Antibody Negative Negative [facility] SERVICES Specimen Blood - Venous blood (substance) Performing Organization Address City/State/ZIP Code Phon e Number [facility] [address] [place] [address] SERVICES documented in this encounter Visit Diagnoses Not on filedocumented in this encounter Care Teams Lithographer Helper Relationship Specialty Start Date End Date Alireza Ojeda, PCP - General 12/14/15 [address] [place], [place] [phone] documented as of this encounter
--- OUTSIDE RECORDS SUMMARY | 2022-06-22 01:36 | XMS_ITS | Encounter Summary ---
:1955 Author Organization [facility] Address [address] [place] [address] Care Team Providers Name Role Phone Alireza Ojeda DO Primary Care Provider Encounter Details Date Type Department Care Team Description 08/03/2016 Hospital Encounter [facility]- [place] Unknown, Provider, [facility] [address] [facility] [phone] [place] [address] (Work) [phone] Social History Tobacco Use Types Packs/Day Years Used Date Never Assessed Sex Assigned at Date Recorded Not on file documented as of this encounter Discharge Disposition Disposition Code Departure Means Destination Home or Self Custodial documented in this encounter Plan of Treatment Not on filedocumented as of this encounter Visit Diagnoses Not on filedocumented in this encounter Care Teams Lighting Director Relationship Specialty Start Date End Date Alireza Ojeda DO PCP - General 12/14/15 [address] [place] [address] documented as of this encounter
--- OUTSIDE RECORDS SUMMARY | 2022-06-22 01:36 | XMS_ITS | Encounter Summary ---
:[address] [facility] Address [address] [place] [id number] Care Team Providers Name Role Phone Unknown, Provider Primary Care Provider Encounter Details Date Type Department Care Team Description 07/07/2012 Results Only [facility] Lauren Nuno, HAN Laboratory Services - [address] [address] Social History Tobacco Use Types Packs/Day Years Used Date Never Assessed Sex Assigned at Date Recorded Not on file documented as of this encounter Plan of Treatment Not on filedocumented as of this encounter Procedures Procedure Name Priority Date/Time Associated Diagnosis Comme nts PAP TEST- RESULT Routine 07/07/2012 0:00 EDT Resu lts for this ONLY procedure are i n the results section. documented in this encounter Results PAP TEST- RESULT ONLY (07/07/2012 0:00 EDT) Pathology Report: CYTOPATHOLOGY REPORT [facility] Reports generated via electronic interface contain taye ginal data; however they are lacking the format of the original re port. Caution should be taken when reading/interpreting unfo rmatted reports. Name: ? GENOVEVA WHITING ? Accession #: ? [id number] : ? 1955 (Age: 57) ??F ?Collect Date: ? 10/0 04/2012 Location: ? [facility] ? Receive Date : ? 07/08/2012 Provider: ?LAUREN NUNO SPEECH LANGUAGE PATHOLOGIST ASSISTANT Copy to: ? Specimen/Source: ? Pap Test, Vagina, ThinPrep Imaging System with manual evaluation Last Menstrual Period: ? Previous Gynecologic Pathology: ? Yes: adenomatous hyperplasia 2006 Ovarian adenocarcinoma Treatment History: ? Hysterectomy Other: ? Additional clinical information: last pap 06/27/11 wnl/ negative HPV ? SPECIMEN ADEQUACY ? Satisfactory for Evaluation - assessment of transformation zone component not appl icable ( e.g. atrophy, vaginal sample, hysterectomy) GENERAL CATEGORIZATION ? Negative for Intraepithelial Lesion or Malignan cy ? Document reviewed and electronically signed by: ? GRICEL Gonzalez(ASCP) ? Report Date: ??07/11/2012 13:48 End of Report Specimen Performing Organization Address City/State/ZIP Code Phon e Number [facility] [address] [place] [address] SERVICES [facility] [address] [place] [address] documented in this encounter Visit Diagnoses Not on filedocumented in this encounter Care Teams Emergency Medical Tech Relationship Specialty Start Date End Date Unknown, Provider, PCP - General 04/04/09 12/13/15 documented as of this encounter
[2022-06-22 15:29] LABS: ALT 137 U/L (14-59); AST 102 U/L (15-37); Albumin 3.5 g/dL (3.4-5.0); Alkaline Phosphatase 123 U/L (46-116); Anion Gap 6.1 mmol/L (3-11); BUN 12 mg/dL (7-18); Bilirubin, Total 0.3 mg/dL (0.2-1.0); CO2 30.9 mmol/L (21.0-32.0); CREATININE 0.7 mg/dL (0.55-1.02); Calcium 8.4 mg/dL (8.5-10.1); Chloride 103 mmol/L (98-107); Estimated GFR 94.73 (mL/min/1.73m2); Glucose 91 mg/dL (74-106); Potassium 3.7 mmol/L (3.5-5.1); Sodium 140 mmol/L (136-145); Total Protein 8.9 g/dL (6.4-8.2)
[2022-06-25 11:43] LABS: HBs Antibody, Qual Negative (See Note); HBs Antibody, Quant <3.1 mIU/mL (See Note); Hepatitis B Core Antibody Negative (Negative); Hepatitis B surface Ag Negative (Negative); Hepatitis C Ab w Rflx HCV PCR Negative (Negative)
== END 2022-06-22 01:04 | disposition home or self-care (01) ==
LOC: LBO 01:03
PROVIDERS: PCP Nurse Practitioner Family; Visit Provider Family Medicine
DX: R79.89 Other specified abnormal findings of blood chemistry (principal); Z00.00 Encounter for general adult medical examination without abnormal findings
CPT/HCPCS: 36415; 80053; 86704; 86706; 86803; 87340

== ENCOUNTER 2022-06-27 03:27 | Outpatient (CLI) | payer OTHER, SELFPAY ==
[2022-06-27 13:55] LABS: HCT 40.6 % (36.0-46.0); HGB 13.6 g/dL (11.2-15.7); MCH 28.3 pg (27.0-33.0); MCHC 33.5 % (32.0-36.0); MCV 85 fL (80-95); MPV 10.2 fL (8.0-11.0); Platelet Count 237 10^3/uL (130-400); RDW 13.5 % (11.7-14.6); RDW-SD 42.3 fL; WBC 6.41 10^3/uL (4.4-10.8)
[2022-06-27 14:16] LABS: Absolute Neutrophil Count 3.46 10^3/uL (1.2-6.7)
[2022-06-27 14:17] LABS: Absolute Basophil Count 0.13 10^3/uL (0.0-0.2); Absolute Eosinophil Count 0.13 10^3/uL (0.0-0.7); Absolute Lymphocyte Count 2.37 10^3/uL (1.2-3.4); Absolute Monocyte Count 0.32 10^3/uL (0.1-0.8); Atypical Lymphocytes % 4; Diff Comment Manual Differential; RBC Morphology Normal
[2022-06-27 14:40] LABS: PROTEIN 22.6 mg/dL (0.0-11.9)
[2022-06-28 12:57] LABS: Albumin 50.2 % (55.8-66.1); Albumin g/dL 4.2 g/dL (3.6-5.2); Total Protein 8.3 g/dL (6.3-8.2)
[2022-06-28 14:26] LABS: Albumin, Urine % 13.3 %; Albumin, Urine mg/dL 1 mg/dL; Globulins, Urine % 86.7 %; Globulins, Urine mg/dL 5 mg/dL; Immunotyping, Urine (See Note); Total Protein Urine 6 mg/dL (See Note)
== END 2022-06-27 03:28 | disposition home or self-care (01) ==
LOC: LBO 03:28
PROVIDERS: PCP Nurse Practitioner Family; Visit Provider Family Medicine
DX: K76.0 Fatty (change of) liver, not elsewhere classified (principal); R77.9 Abnormality of plasma protein, unspecified
CPT/HCPCS: 36415; 84156; 84166; 86335; 84165; 85025

== ENCOUNTER 2022-10-22 02:59 | Outpatient (CLI) | payer OTHER, SELFPAY ==
[2022-10-22 13:18] LABS: Abs Immature Grans 0.07 10^3/uL (0.0-0.06); Absolute Basophil Count 0.01 10^3/uL (0.0-0.2); Absolute Lymphocyte Count 2.26 10^3/uL (1.2-3.4); Absolute Monocyte Count 0.91 10^3/uL (0.1-0.8); Absolute Neutrophil Count 9.98 10^3/uL (1.2-6.7); Basophils % 0.1; HCT 43.8 % (36.0-46.0); HGB 14.7 g/dL (11.2-15.7); Immature Grans % 0.5; Lymphocytes % 17.1; MCH 28.7 pg (27.0-33.0); MCHC 33.6 % (32.0-36.0); MCV 86 fL (80-95); MPV 10.3 fL (8.0-11.0); Monocytes % 6.9; Neutrophils % 75.4; Platelet Count 296 10^3/uL (130-400); RBC 5.12 10^6/uL (3.93-5.22); RDW 12.7 % (11.7-14.6); RDW-SD 39.9 fL; WBC 13.23 10^3/uL (4.4-10.8)
[2022-10-22 13:46] LABS: ALT 87 U/L (14-59); AST 45 U/L (15-37); Albumin 3.9 g/dL (3.4-5.0); Alkaline Phosphatase 106 U/L (46-116); Anion Gap 6.2 mmol/L (3-11); BUN 17 mg/dL (7-18); Bilirubin, Total 0.6 mg/dL (0.2-1.0); CO2 30.8 mmol/L (21.0-32.0); Chloride 98 mmol/L (98-107); Estimated GFR 61.75 (mL/min/1.73m2); Glucose 145 mg/dL (74-106); Potassium 4.1 mmol/L (3.5-5.1); Sodium 135 mmol/L (136-145); Total Protein 9.1 g/dL (6.4-8.2)
== END 2022-10-22 03:00 | disposition home or self-care (01) ==
PROVIDERS: PCP Nurse Practitioner Family; Visit Provider Internal Medicine
DX: K74.60 Unspecified cirrhosis of liver (principal)
CPT/HCPCS: 36415; 80053; 85025

== ENCOUNTER 2022-10-29 03:00 | Outpatient (CLI) | payer OTHER, SELFPAY ==
--- NOTE | 2022-10-26 14:10 | W.NUTCONSULT ---
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 PMH: Celiac Dx. 5'1 167 lbs BMI: 29. Has lost 15 lbs since June since changing her diet. Diet Recall: fruit for breakfast and lunch, supper: brown rice, chicken. Exercise: none Genoveva has reduced simple carbs, protein and fat in her diet for the last 4 months. Weight loss and improvement in liver enzymes noted. Reviewed with Genoveva ideal meal plan to treat DOHERTY includes complex carbs, lean protein and healthy fats. Encouraged her to liberalize her diet and eat balanced meals through out the day. Also recommend walking 1- 2 miles daily. Goal weight: 150 lbs No follow up planned at this time. Time Spent in Nutritional Counseling and Treatment: 30
[2022-10-29 13:41] LABS: Abs Immature Grans 0.03 10^3/uL (0.0-0.06); Absolute Basophil Count 0.01 10^3/uL (0.0-0.2); Absolute Neutrophil Count 7.22 10^3/uL (1.2-6.7); Basophils % 0.1; HCT 45.9 % (36.0-46.0); HGB 15.1 g/dL (11.2-15.7); Immature Grans % 0.3; Lymphocytes % 19.9; MCH 28.8 pg (27.0-33.0); MCHC 32.9 % (32.0-36.0); MCV 87 fL (80-95); MPV 10.3 fL (8.0-11.0); Neutrophils % 71.7; Platelet Count 229 10^3/uL (130-400); RBC 5.25 10^6/uL (3.93-5.22); RDW-SD 41.8 fL; WBC 10.06 10^3/uL (4.4-10.8)
[2022-10-29 14:10] LABS: ALT 87 U/L (14-59); AST 48 U/L (15-37); Alkaline Phosphatase 105 U/L (46-116); Anion Gap 7.2 mmol/L (3-11); BUN 20 mg/dL (7-18); Bilirubin, Total 0.7 mg/dL (0.2-1.0); CO2 29.8 mmol/L (21.0-32.0); Calcium 8.8 mg/dL (8.5-10.1); Chloride 97 mmol/L (98-107); Estimated GFR 61.75 (mL/min/1.73m2); Glucose 130 mg/dL (74-106); Potassium 4.3 mmol/L (3.5-5.1); Sodium 134 mmol/L (136-145); Total Protein 8.6 g/dL (6.4-8.2)
== END 2022-10-29 03:01 | disposition home or self-care (01) ==
LOC: LBO 03:00
PROVIDERS: PCP Nurse Practitioner Family; Visit Provider Internal Medicine
DX: K74.60 Unspecified cirrhosis of liver (principal)
CPT/HCPCS: 36415; 80053; 85025

== ENCOUNTER 2022-11-05 03:20 | Outpatient (CLI) | payer OTHER, SELFPAY ==
[2022-11-05 13:35] LABS: Abs Immature Grans 0.05 10^3/uL (0.0-0.06); Absolute Basophil Count 0.05 10^3/uL (0.0-0.2); Absolute Eosinophil Count 0.01 10^3/uL (0.0-0.7); Absolute Lymphocyte Count 2.71 10^3/uL (1.2-3.4); Absolute Monocyte Count 0.72 10^3/uL (0.1-0.8); Absolute Neutrophil Count 8.88 10^3/uL (1.2-6.7); Basophils % 0.4; Eosinophils % 0.1; HCT 46.8 % (36.0-46.0); HGB 15.4 g/dL (11.2-15.7); Immature Grans % 0.4; Lymphocytes % 21.8; MCH 28.8 pg (27.0-33.0); MCHC 32.9 % (32.0-36.0); MCV 88 fL (80-95); Monocytes % 5.8; Neutrophils % 71.5; Platelet Count 194 10^3/uL (130-400); RBC 5.34 10^6/uL (3.93-5.22); RDW 13.3 % (11.7-14.6); RDW-SD 42.8 fL; WBC 12.42 10^3/uL (4.4-10.8)
[2022-11-05 14:13] LABS: ALT 61 U/L (14-59); AST 35 U/L (15-37); Albumin 3.8 g/dL (3.4-5.0); Alkaline Phosphatase 111 U/L (46-116); Anion Gap 7.2 mmol/L (3-11); BUN 13 mg/dL (7-18); Bilirubin, Total 0.5 mg/dL (0.2-1.0); CO2 28.8 mmol/L (21.0-32.0); CREATININE 0.9 mg/dL (0.55-1.02); Calcium 8.7 mg/dL (8.5-10.1); Chloride 100 mmol/L (98-107); Estimated GFR 70.07 (mL/min/1.73m2); Glucose 122 mg/dL (74-106); Sodium 136 mmol/L (136-145); Total Protein 8.3 g/dL (6.4-8.2)
== END 2022-11-05 03:21 | disposition home or self-care (01) ==
LOC: LBO 03:20
PROVIDERS: PCP Nurse Practitioner Family; Visit Provider Internal Medicine
DX: K74.60 Unspecified cirrhosis of liver (principal)
CPT/HCPCS: 36415; 80053; 85025

== ENCOUNTER 2022-11-12 00:58 | Outpatient (CLI) | payer OTHER, SELFPAY ==
[2022-11-12 13:36] LABS: Abs Immature Grans 0.02 10^3/uL (0.0-0.06); Absolute Basophil Count 0.04 10^3/uL (0.0-0.2); Absolute Lymphocyte Count 1.66 10^3/uL (1.2-3.4); Absolute Monocyte Count 0.56 10^3/uL (0.1-0.8); Absolute Neutrophil Count 6.06 10^3/uL (1.2-6.7); Basophils % 0.5; HCT 45.4 % (36.0-46.0); HGB 14.9 g/dL (11.2-15.7); Immature Grans % 0.2; Lymphocytes % 19.9; MCH 28.7 pg (27.0-33.0); MCHC 32.8 % (32.0-36.0); MCV 88 fL (80-95); MPV 9.9 fL (8.0-11.0); Monocytes % 6.7; Neutrophils % 72.7; Platelet Count 204 10^3/uL (130-400); RBC 5.19 10^6/uL (3.93-5.22); RDW 13.5 % (11.7-14.6); RDW-SD 43.4 fL; WBC 8.34 10^3/uL (4.4-10.8)
[2022-11-12 14:18] LABS: ALT 40 U/L (14-59); AST 29 U/L (15-37); Albumin 3.8 g/dL (3.4-5.0); Alkaline Phosphatase 108 U/L (46-116); Anion Gap 9.6 mmol/L (3-11); BUN 14 mg/dL (7-18); Bilirubin, Total 0.5 mg/dL (0.2-1.0); CO2 26.4 mmol/L (21.0-32.0); CREATININE 0.8 mg/dL (0.55-1.02); Chloride 100 mmol/L (98-107); Estimated GFR 80.71 (mL/min/1.73m2); Glucose 137 mg/dL (74-106); Potassium 4.2 mmol/L (3.5-5.1); Sodium 136 mmol/L (136-145); Total Protein 8.1 g/dL (6.4-8.2)
== END 2022-11-12 00:59 | disposition home or self-care (01) ==
LOC: LBO 00:58
PROVIDERS: PCP Nurse Practitioner Family; Visit Provider Internal Medicine
DX: K74.60 Unspecified cirrhosis of liver (principal)
CPT/HCPCS: 36415; 80053; 85025

== ENCOUNTER 2022-11-19 02:33 | Outpatient (CLI) | payer OTHER, SELFPAY ==
[2022-11-19 13:21] LABS: Abs Immature Grans 0.02 10^3/uL (0.0-0.06); Absolute Basophil Count 0.05 10^3/uL (0.0-0.2); Absolute Eosinophil Count 0.17 10^3/uL (0.0-0.7); Absolute Lymphocyte Count 2.57 10^3/uL (1.2-3.4); Absolute Neutrophil Count 4.06 10^3/uL (1.2-6.7); Basophils % 0.7; Eosinophils % 2.2; HCT 43.3 % (36.0-46.0); HGB 14.2 g/dL (11.2-15.7); Immature Grans % 0.3; Lymphocytes % 33.5; MCHC 32.8 % (32.0-36.0); MCV 88 fL (80-95); MPV 9.6 fL (8.0-11.0); Monocytes % 10.4; Neutrophils % 52.9; Platelet Count 263 10^3/uL (130-400); RDW 13.5 % (11.7-14.6); RDW-SD 44.2 fL; WBC 7.67 10^3/uL (4.4-10.8)
[2022-11-19 13:51] LABS: ALT 32 U/L (14-59); AST 28 U/L (15-37); Albumin 3.5 g/dL (3.4-5.0); Alkaline Phosphatase 100 U/L (46-116); BUN 9 mg/dL (7-18); Bilirubin, Total 0.4 mg/dL (0.2-1.0); CREATININE 0.8 mg/dL (0.55-1.02); Calcium 9.1 mg/dL (8.5-10.1); Chloride 103 mmol/L (98-107); Estimated GFR 80.71 (mL/min/1.73m2); Glucose 121 mg/dL (74-106); Potassium 3.8 mmol/L (3.5-5.1); Sodium 141 mmol/L (136-145); Total Protein 7.9 g/dL (6.4-8.2)
== END 2022-11-19 02:34 | disposition home or self-care (01) ==
LOC: LBO 02:33
PROVIDERS: PCP Nurse Practitioner Family; Visit Provider Internal Medicine
DX: K74.60 Unspecified cirrhosis of liver (principal)
CPT/HCPCS: 36415; 80053; 85025

== ENCOUNTER 2022-11-26 02:46 | Outpatient (CLI) | payer OTHER, SELFPAY ==
[2022-11-26 13:47] LABS: Abs Immature Grans 0.02 10^3/uL (0.0-0.06); Absolute Basophil Count 0.05 10^3/uL (0.0-0.2); Absolute Lymphocyte Count 2.52 10^3/uL (1.2-3.4); Absolute Monocyte Count 0.64 10^3/uL (0.1-0.8); Absolute Neutrophil Count 3.73 10^3/uL (1.2-6.7); Basophils % 0.7; HCT 38.6 % (36.0-46.0); HGB 12.5 g/dL (11.2-15.7); Immature Grans % 0.3; Lymphocytes % 36.2; MCH 28.8 pg (27.0-33.0); MCHC 32.4 % (32.0-36.0); MCV 89 fL (80-95); Monocytes % 9.2; Neutrophils % 53.6; Platelet Count 268 10^3/uL (130-400); RBC 4.34 10^6/uL (3.93-5.22); RDW 13.6 % (11.7-14.6); RDW-SD 44.6 fL; WBC 6.96 10^3/uL (4.4-10.8)
[2022-11-26 14:25] LABS: ALT 30 U/L (14-59); AST 33 U/L (15-37); Albumin 3.3 g/dL (3.4-5.0); Alkaline Phosphatase 99 U/L (46-116); Anion Gap 4.4 mmol/L (3-11); BUN 8 mg/dL (7-18); Bilirubin, Total 0.3 mg/dL (0.2-1.0); CO2 32.6 mmol/L (21.0-32.0); CREATININE 0.7 mg/dL (0.55-1.02); Calcium 8.9 mg/dL (8.5-10.1); Chloride 104 mmol/L (98-107); Estimated GFR 94.73 (mL/min/1.73m2); Glucose 122 mg/dL (74-106); Potassium 4.2 mmol/L (3.5-5.1); Sodium 141 mmol/L (136-145); Total Protein 7.3 g/dL (6.4-8.2)
== END 2022-11-26 02:47 | disposition home or self-care (01) ==
LOC: LBO 02:46
PROVIDERS: PCP Nurse Practitioner Family; Visit Provider Internal Medicine
DX: K74.60 Unspecified cirrhosis of liver (principal)
CPT/HCPCS: 36415; 80053; 85025

== ENCOUNTER 2022-12-10 03:16 | Outpatient (CLI) | payer OTHER, SELFPAY ==
[2022-12-10 09:53] LABS: Abs Immature Grans 0.01 10^3/uL (0.0-0.06); Absolute Basophil Count 0.06 10^3/uL (0.0-0.2); Absolute Eosinophil Count 0.14 10^3/uL (0.0-0.7); Absolute Lymphocyte Count 2.34 10^3/uL (1.2-3.4); Absolute Monocyte Count 0.63 10^3/uL (0.1-0.8); Absolute Neutrophil Count 3.78 10^3/uL (1.2-6.7); Basophils % 0.9; HCT 40.4 % (36.0-46.0); HGB 13.4 g/dL (11.2-15.7); Immature Grans % 0.1; Lymphocytes % 33.6; MCH 28.9 pg (27.0-33.0); MCHC 33.2 % (32.0-36.0); MCV 87 fL (80-95); MPV 10.6 fL (8.0-11.0); Monocytes % 9.1; Neutrophils % 54.3; Platelet Count 227 10^3/uL (130-400); RBC 4.64 10^6/uL (3.93-5.22); RDW 13.7 % (11.7-14.6); RDW-SD 44.2 fL; WBC 6.96 10^3/uL (4.4-10.8)
[2022-12-10 10:35] LABS: ALT 29 U/L (14-59); AST 39 U/L (15-37); Albumin 3.5 g/dL (3.4-5.0); Alkaline Phosphatase 97 U/L (46-116); Anion Gap 6.3 mmol/L (3-11); BUN 11 mg/dL (7-18); Bilirubin, Total 0.4 mg/dL (0.2-1.0); CO2 30.7 mmol/L (21.0-32.0); CREATININE 0.7 mg/dL (0.55-1.02); Calcium 8.9 mg/dL (8.5-10.1); Chloride 103 mmol/L (98-107); Estimated GFR 94.73 (mL/min/1.73m2); Glucose 109 mg/dL (74-106); Sodium 140 mmol/L (136-145); Total Protein 7.9 g/dL (6.4-8.2)
== END 2022-12-10 03:17 | disposition home or self-care (01) ==
LOC: LBO 03:16
PROVIDERS: PCP Nurse Practitioner Family; Visit Provider Internal Medicine
DX: K74.60 Unspecified cirrhosis of liver (principal)
CPT/HCPCS: 36415; 80053; 85025

== ENCOUNTER 2023-01-07 01:37 | Outpatient (CLI) | payer OTHER, SELFPAY ==
[2023-01-07 09:39] LABS: Abs Immature Grans 0.02 10^3/uL (0.0-0.06); Absolute Basophil Count 0.07 10^3/uL (0.0-0.2); Absolute Eosinophil Count 0.15 10^3/uL (0.0-0.7); Absolute Monocyte Count 0.73 10^3/uL (0.1-0.8); Absolute Neutrophil Count 3.14 10^3/uL (1.2-6.7); Eosinophils % 2.1; HGB 13.1 g/dL (11.2-15.7); Immature Grans % 0.3; Lymphocytes % 41.4; MCHC 32.8 % (32.0-36.0); MCV 89 fL (80-95); MPV 10.6 fL (8.0-11.0); Monocytes % 10.4; Neutrophils % 44.8; Platelet Count 226 10^3/uL (130-400); RBC 4.51 10^6/uL (3.93-5.22); RDW 13.2 % (11.7-14.6); RDW-SD 43.5 fL; WBC 7.01 10^3/uL (4.4-10.8)
[2023-01-07 10:12] LABS: ALT 35 U/L (14-59); AST 42 U/L (15-37); Albumin 3.5 g/dL (3.4-5.0); Alkaline Phosphatase 96 U/L (46-116); Anion Gap 6.1 mmol/L (3-11); BUN 12 mg/dL (7-18); Bilirubin, Direct 0.1 mg/dL (0.0-0.2); Bilirubin, Total 0.3 mg/dL (0.2-1.0); CO2 29.9 mmol/L (21.0-32.0); CREATININE 0.7 mg/dL (0.55-1.02); Calcium 8.9 mg/dL (8.5-10.1); Chloride 103 mmol/L (98-107); Estimated GFR 94.73 (mL/min/1.73m2); Glucose 86 mg/dL (74-106); Potassium 3.8 mmol/L (3.5-5.1); Sodium 139 mmol/L (136-145); Total Protein 7.9 g/dL (6.4-8.2)
== END 2023-01-07 01:38 | disposition home or self-care (01) ==
PROVIDERS: PCP Nurse Practitioner Family; Visit Provider Internal Medicine
DX: K74.60 Unspecified cirrhosis of liver (principal); K75.4 Autoimmune hepatitis; K75.81 Nonalcoholic steatohepatitis (NASH)
CPT/HCPCS: 36415; 80053; 80076; 85025

== ENCOUNTER 2023-01-21 01:31 | Outpatient (CLI) | payer OTHER, SELFPAY ==
[2023-01-21 08:14] LABS: Absolute Basophil Count 0.06 10^3/uL (0.0-0.2); Absolute Eosinophil Count 0.07 10^3/uL (0.0-0.7); Absolute Monocyte Count 0.45 10^3/uL (0.1-0.8); Absolute Neutrophil Count 2.29 10^3/uL (1.2-6.7); Basophils % 1.2; Eosinophils % 1.4; HCT 40.2 % (36.0-46.0); HGB 13.3 g/dL (11.2-15.7); Lymphocytes % 42.3; MCH 29.1 pg (27.0-33.0); MCHC 33.1 % (32.0-36.0); MCV 88 fL (80-95); MPV 10.8 fL (8.0-11.0); Monocytes % 9.1; Platelet Count 216 10^3/uL (130-400); RBC 4.57 10^6/uL (3.93-5.22); RDW 12.7 % (11.7-14.6); RDW-SD 40.8 fL; WBC 4.97 10^3/uL (4.4-10.8)
[2023-01-21 08:56] LABS: ALT 33 U/L (14-59); AST 36 U/L (15-37); Albumin 3.7 g/dL (3.4-5.0); Alkaline Phosphatase 89 U/L (46-116); Anion Gap 4.4 mmol/L (3-11); BUN 13 mg/dL (7-18); Bilirubin, Total 0.5 mg/dL (0.2-1.0); CO2 30.6 mmol/L (21.0-32.0); CREATININE 0.8 mg/dL (0.55-1.02); Calcium 9.2 mg/dL (8.5-10.1); Chloride 103 mmol/L (98-107); Estimated GFR 80.71 (mL/min/1.73m2); Glucose 123 mg/dL (74-106); Potassium 3.4 mmol/L (3.5-5.1); Sodium 138 mmol/L (136-145); Total Protein 8.2 g/dL (6.4-8.2)
[2023-01-21 12:52] LABS: Bilirubin, Direct 0.2 mg/dL (0.0-0.2)
== END 2023-01-21 01:32 | disposition home or self-care (01) ==
PROVIDERS: PCP Nurse Practitioner Family; Visit Provider Internal Medicine
DX: K74.60 Unspecified cirrhosis of liver (principal); K75.81 Nonalcoholic steatohepatitis (NASH)
CPT/HCPCS: 36415; 80053; 80076; 85025

== ENCOUNTER 2023-02-04 02:59 | Outpatient (CLI) | payer OTHER, SELFPAY ==
[2023-02-04 08:03] LABS: Abs Immature Grans 0.01 10^3/uL (0.0-0.06); Absolute Basophil Count 0.05 10^3/uL (0.0-0.2); Absolute Eosinophil Count 0.12 10^3/uL (0.0-0.7); Absolute Lymphocyte Count 2.15 10^3/uL (1.2-3.4); Absolute Monocyte Count 0.47 10^3/uL (0.1-0.8); Absolute Neutrophil Count 2.62 10^3/uL (1.2-6.7); Basophils % 0.9; Eosinophils % 2.2; HCT 39.8 % (36.0-46.0); Immature Grans % 0.2; Lymphocytes % 39.7; MCH 29.1 pg (27.0-33.0); MCHC 32.7 % (32.0-36.0); MCV 89 fL (80-95); MPV 11.1 fL (8.0-11.0); Monocytes % 8.7; Neutrophils % 48.3; Platelet Count 209 10^3/uL (130-400); RBC 4.46 10^6/uL (3.93-5.22); RDW 12.3 % (11.7-14.6); RDW-SD 40.3 fL; WBC 5.42 10^3/uL (4.4-10.8)
[2023-02-04 08:22] LABS: ALT 30 U/L (14-59); AST 30 U/L (15-37); Albumin 3.6 g/dL (3.4-5.0); Alkaline Phosphatase 85 U/L (46-116); Anion Gap 5.5 mmol/L (3-11); BUN 14 mg/dL (7-18); Bilirubin, Direct 0.1 mg/dL (0.0-0.2); Bilirubin, Total 0.3 mg/dL (0.2-1.0); CO2 30.5 mmol/L (21.0-32.0); CREATININE 0.7 mg/dL (0.55-1.02); Calcium 9.1 mg/dL (8.5-10.1); Chloride 105 mmol/L (98-107); Estimated GFR 94.73 (mL/min/1.73m2); Glucose 87 mg/dL (74-106); Potassium 3.6 mmol/L (3.5-5.1); Sodium 141 mmol/L (136-145)
== END 2023-02-04 03:00 | disposition home or self-care (01) ==
PROVIDERS: PCP Nurse Practitioner Family; Visit Provider Internal Medicine
DX: K74.60 Unspecified cirrhosis of liver (principal); K75.81 Nonalcoholic steatohepatitis (NASH)
CPT/HCPCS: 36415; 80053; 80076; 85025

== ENCOUNTER 2023-02-18 02:03 | Outpatient (CLI) | payer OTHER, SELFPAY ==
[2023-02-18 09:04] LABS: Abs Immature Grans 0.02 10^3/uL (0.0-0.06); Absolute Basophil Count 0.06 10^3/uL (0.0-0.2); Absolute Eosinophil Count 0.14 10^3/uL (0.0-0.7); Absolute Lymphocyte Count 2.45 10^3/uL (1.2-3.4); Absolute Monocyte Count 0.65 10^3/uL (0.1-0.8); Absolute Neutrophil Count 3.23 10^3/uL (1.2-6.7); Basophils % 0.9; Eosinophils % 2.1; HCT 41.6 % (36.0-46.0); HGB 13.7 g/dL (11.2-15.7); Immature Grans % 0.3; Lymphocytes % 37.4; MCH 29.2 pg (27.0-33.0); MCHC 32.9 % (32.0-36.0); MCV 89 fL (80-95); MPV 10.9 fL (8.0-11.0); Monocytes % 9.9; Neutrophils % 49.4; Platelet Count 235 10^3/uL (130-400); RBC 4.69 10^6/uL (3.93-5.22); RDW 11.9 % (11.7-14.6); RDW-SD 38.6 fL; WBC 6.55 10^3/uL (4.4-10.8)
[2023-02-18 09:40] LABS: ALT 27 U/L (14-59); AST 29 U/L (15-37); Albumin 3.9 g/dL (3.4-5.0); Alkaline Phosphatase 104 U/L (46-116); Anion Gap 6.5 mmol/L (3-11); BUN 17 mg/dL (7-18); Bilirubin, Direct 0.1 mg/dL (0.0-0.2); Bilirubin, Total 0.4 mg/dL (0.2-1.0); CO2 30.5 mmol/L (21.0-32.0); CREATININE 0.7 mg/dL (0.55-1.02); Calcium 9.2 mg/dL (8.5-10.1); Chloride 102 mmol/L (98-107); Estimated GFR 94.73 (mL/min/1.73m2); Glucose 96 mg/dL (74-106); Potassium 3.8 mmol/L (3.5-5.1); Sodium 139 mmol/L (136-145); Total Protein 8.5 g/dL (6.4-8.2)
== END 2023-02-18 02:04 | disposition home or self-care (01) ==
PROVIDERS: PCP Nurse Practitioner Family; Visit Provider Internal Medicine
DX: K74.60 Unspecified cirrhosis of liver (principal); K75.4 Autoimmune hepatitis
CPT/HCPCS: 36415; 80053; 80076; 85025

== ENCOUNTER 2023-03-04 03:35 | Outpatient (CLI) | payer OTHER, SELFPAY ==
[2023-03-04 08:02] LABS: Abs Immature Grans 0.01 10^3/uL (0.0-0.06); Absolute Basophil Count 0.05 10^3/uL (0.0-0.2); Absolute Eosinophil Count 0.15 10^3/uL (0.0-0.7); Absolute Lymphocyte Count 1.91 10^3/uL (1.2-3.4); Absolute Monocyte Count 0.61 10^3/uL (0.1-0.8); Absolute Neutrophil Count 3.25 10^3/uL (1.2-6.7); Basophils % 0.8; Eosinophils % 2.5; HCT 41.7 % (36.0-46.0); HGB 13.8 g/dL (11.2-15.7); Immature Grans % 0.2; Lymphocytes % 31.9; MCH 29.3 pg (27.0-33.0); MCHC 33.1 % (32.0-36.0); MCV 89 fL (80-95); MPV 9.9 fL (8.0-11.0); Monocytes % 10.2; Neutrophils % 54.4; Platelet Count 210 10^3/uL (130-400); RBC 4.71 10^6/uL (3.93-5.22); RDW-SD 39.3 fL; WBC 5.98 10^3/uL (4.4-10.8)
[2023-03-04 08:54] LABS: ALT 27 U/L (14-59); AST 29 U/L (15-37); Albumin 3.6 g/dL (3.4-5.0); Alkaline Phosphatase 99 U/L (46-116); BUN 16 mg/dL (7-18); Bilirubin, Direct 0.1 mg/dL (0.0-0.2); Bilirubin, Total 0.3 mg/dL (0.2-1.0); CREATININE 0.9 mg/dL (0.55-1.02); Calcium 8.8 mg/dL (8.5-10.1); Chloride 103 mmol/L (98-107); Estimated GFR 69.64 (mL/min/1.73m2); Glucose 86 mg/dL (74-106); Potassium 4.1 mmol/L (3.5-5.1); Sodium 140 mmol/L (136-145); Total Protein 8.1 g/dL (6.4-8.2)
== END 2023-03-04 03:36 | disposition home or self-care (01) ==
PROVIDERS: PCP Nurse Practitioner Family; Visit Provider Nurse Practitioner Family
DX: K74.60 Unspecified cirrhosis of liver (principal); K75.81 Nonalcoholic steatohepatitis (NASH); K75.4 Autoimmune hepatitis
CPT/HCPCS: 36415; 80053; 80076; 85025

== ENCOUNTER 2023-03-15 00:42 | Outpatient (CLI) | payer OTHER, SELFPAY ==
--- NOTE | 2023-03-15 13:15 | DI.MAMMO_ITS ---
Exam(s) US BREAST RT COMPLETE MG MAMMO DIAGNOSTIC BI EXAM: MAMMO DIAGNOSTIC BI AND COMPLETE RIGHT BREAST ULTRASOUND CLINICAL HISTORY: new right inverted nipple,64.59. TECHNIQUE: BOTH CC AND MLO mammographic images both breasts were obtained with 3D tomosynthesis tech [employer] and utilizing computer aided detection (CAD). COMPLETE RIGHT BREAST ULTRASOUND was performed including all 4 quadrants as well as the retroareolar region and right axilla. COMPARISON: Prior mammograms were reviewed, the most recent being May 2021. There is apparently a change in her right breast nipple this some inversion. FINDINGS: BILATERAL MAMMOGRAM: There has been no significant change in the appearance and distribution of the fibroglandular tissue which is mostly fatty. There are no new spiculated masses nor malignant-appearing microcalcification groups in either breast . There are no new mammographic findings in the immediate retroareolar region of the right breast. No new architectural distortion or skin thickening-traction. COMPLETE RIGHT BREAST ULTRASOUND: There is no evidence of solid or significant cystic lesions in all 4 quadrants of the right breast. Scanning of the retroareolar region is also unremarkable. Scanning of the right axilla is negative for significant adenopathy. IMPRESSION: 1. No radiographic/mammographic evidence of malignancy in either breast. 2. Negative complete right breast ultrasound. Appropriate follow-up is referral to breast surgeon given the history of new nipple inversion.. The patient was informed of the findings and follow-up recommendations by myself prior to leaving the department today. BI-RADS Category 0 - Assessment Incomplete: Need referral to breast surgeon. Breast Density - Category A - Almost entirely fatty Breast density Category C or D implies that the patient has dense breast tissue. Dense breast tissue can make it harder to find cancer on a mammogram. Dense breast tissue is also associated with an incr eased risk of breast cancer. This information about the result of the mammogram report was provided to the patient to raise their awareness. Use this report when you speak with the patient about their risks for breast cancer, which includes their family history. At that time, you may recommend additional screening tests (Ultrasoun d or MRI) as these tests may add significant information. A negative radiographic report should not delay biopsy if a dominant or clinically suspicious mass is present. Up to ten percent of cancers are not identified on mammography. A negative report may reinforce clinical impression. Adenosis and dense breasts may obscure an underlying neoplasm. False positive reports average 6 to 10%. Patient will receive a letter notifying them of these results.
== END 2023-03-15 01:02 ==
LOC: DI 00:43
PROVIDERS: PCP Nurse Practitioner Family; Visit Provider Nurse Practitioner Family
DX: N64.59 Other signs and symptoms in breast (principal); Z12.31 Encounter for screening mammogram for malignant neoplasm of breast
CPT/HCPCS: 76642; 77062; 77066; G0279

== ENCOUNTER 2023-03-25 03:16 | Outpatient (CLI) | payer OTHER, SELFPAY ==
[2023-03-25 10:31] LABS: Abs Immature Grans 0.01 10^3/uL (0.0-0.06); Absolute Basophil Count 0.06 10^3/uL (0.0-0.2); Absolute Eosinophil Count 0.14 10^3/uL (0.0-0.7); Absolute Lymphocyte Count 2.49 10^3/uL (1.2-3.4); Absolute Monocyte Count 0.67 10^3/uL (0.1-0.8); Basophils % 0.9; Eosinophils % 2.1; HCT 42.6 % (36.0-46.0); Immature Grans % 0.2; Lymphocytes % 37.9; MCH 28.3 pg (27.0-33.0); MCHC 32.9 % (32.0-36.0); MCV 86 fL (80-95); MPV 9.9 fL (8.0-11.0); Monocytes % 10.2; Neutrophils % 48.7; Platelet Count 246 10^3/uL (130-400); RBC 4.94 10^6/uL (3.93-5.22); RDW 12.3 % (11.7-14.6); RDW-SD 38.7 fL; WBC 6.57 10^3/uL (4.4-10.8)
[2023-03-25 11:30] LABS: ALT 23 U/L (14-59); AST 24 U/L (15-37); Albumin 3.8 g/dL (3.4-5.0); Alkaline Phosphatase 93 U/L (46-116); Anion Gap 7.7 mmol/L (3-11); BUN 17 mg/dL (7-18); Bilirubin, Direct 0.1 mg/dL (0.0-0.2); Bilirubin, Total 0.3 mg/dL (0.2-1.0); CO2 30.3 mmol/L (21.0-32.0); CREATININE 0.8 mg/dL (0.55-1.02); Chloride 101 mmol/L (98-107); Estimated GFR 80.21 (mL/min/1.73m2); Glucose 93 mg/dL (74-106); Potassium 4.3 mmol/L (3.5-5.1); Sodium 139 mmol/L (136-145); Total Protein 8.5 g/dL (6.4-8.2)
== END 2023-03-25 03:17 | disposition home or self-care (01) ==
LOC: LBO 03:16
PROVIDERS: PCP Nurse Practitioner Family; Visit Provider Internal Medicine
DX: K74.60 Unspecified cirrhosis of liver (principal)
CPT/HCPCS: 36415; 80053; 80076; 85025

== ENCOUNTER 2023-06-07 01:49 | Outpatient (CLI) | payer OTHER, SELFPAY ==
[2023-06-07 08:35] LABS: Calculated LDL 111 mg/dL (<100); Cholesterol 194 mg/dL (<200); HDL Cholesterol 59 mg/dL (40-60); Triglyceride 121 mg/dL (<150)
[2023-06-07 08:56] LABS: Vitamin D 25 Total 31.2 ng/mL (30-100)
== END 2023-06-07 01:50 | disposition home or self-care (01) ==
LOC: LBO 01:49
PROVIDERS: PCP Nurse Practitioner Family; Referring Provider Nurse Practitioner Family; Visit Provider Nurse Practitioner Family
DX: E78.5 Hyperlipidemia, unspecified (principal); Z00.00 Encounter for general adult medical examination without abnormal findings; K90.0 Celiac disease
CPT/HCPCS: 36415; 80061; 82306

== ENCOUNTER 2023-09-27 03:36 | Outpatient (CLI) | payer OTHER, SELFPAY ==
[2023-09-27 08:09] LABS: Abs Immature Grans 0.01 10^3/uL (0.0-0.06); Absolute Basophil Count 0.04 10^3/uL (0.0-0.2); Absolute Eosinophil Count 0.13 10^3/uL (0.0-0.7); Absolute Lymphocyte Count 2.06 10^3/uL (1.2-3.4); Absolute Monocyte Count 0.54 10^3/uL (0.1-0.8); Absolute Neutrophil Count 2.76 10^3/uL (1.2-6.7); Basophils % 0.7; Eosinophils % 2.3; HCT 41.5 % (36.0-46.0); Immature Grans % 0.2; Lymphocytes % 37.2; MCH 28.7 pg (27.0-33.0); MCHC 33.7 % (32.0-36.0); MCV 85 fL (80-95); MPV 10.3 fL (8.0-11.0); Monocytes % 9.7; Neutrophils % 49.9; Platelet Count 226 10^3/uL (130-400); RBC 4.88 10^6/uL (3.93-5.22); RDW 12.9 % (11.7-14.6); RDW-SD 39.8 fL; WBC 5.54 10^3/uL (4.4-10.8)
[2023-09-27 08:20] LABS: INR 1.1 (0.9-1.1); Prothrombin Time 11.1 sec (9.1-11.1)
[2023-09-27 08:28] LABS: ALT 21 U/L (14-59); AST 28 U/L (15-37); Albumin 3.8 g/dL (3.4-5.0); Alkaline Phosphatase 87 U/L (46-116); Anion Gap 10.8 mmol/L (3-11); BUN 20 mg/dL (7-18); Bilirubin, Direct 0.1 mg/dL (0.0-0.2); Bilirubin, Total 0.4 mg/dL (0.2-1.0); CO2 27.2 mmol/L (21.0-32.0); CREATININE 0.8 mg/dL (0.55-1.02); Calcium 8.9 mg/dL (8.5-10.1); Chloride 103 mmol/L (98-107); Estimated GFR 80.21 (mL/min/1.73m2); Glucose 126 mg/dL (74-106); Potassium 3.9 mmol/L (3.5-5.1); Sodium 141 mmol/L (136-145); Total Protein 8.1 g/dL (6.4-8.2)
[2023-09-27 20:26] LABS: AFP Tumor Marker 3.2 ng/mL (<8.1)
[2023-10-01 12:35] LABS: Tissue Transglutaminase IgA <4.0 CU (<20.0)
== END 2023-09-27 03:37 | disposition home or self-care (01) ==
PROVIDERS: PCP Nurse Practitioner Family; Visit Provider Internal Medicine
DX: K74.60 Unspecified cirrhosis of liver (principal); K75.4 Autoimmune hepatitis; K75.81 Nonalcoholic steatohepatitis (NASH)
CPT/HCPCS: 36415; 80053; 80076; 82105; 85025; 85610

== ENCOUNTER 2024-01-16 05:00 | Outpatient (CLI) | payer MEDICARE, SELFPAY ==
[2024-01-16 13:29] LABS: Abs Immature Grans 0.01 10^3/uL (0.0-0.06); Absolute Basophil Count 0.07 10^3/uL (0.0-0.2); Absolute Eosinophil Count 0.06 10^3/uL (0.0-0.7); Absolute Lymphocyte Count 2.19 10^3/uL (1.2-3.4); Absolute Monocyte Count 0.57 10^3/uL (0.1-0.8); Absolute Neutrophil Count 2.66 10^3/uL (1.2-6.7); Basophils % 1.3; Eosinophils % 1.1; HCT 41.3 % (36.0-46.0); HGB 13.4 g/dL (11.2-15.7); Immature Grans % 0.2; Lymphocytes % 39.4; MCHC 32.4 % (32.0-36.0); MCV 86 fL (80-95); MPV 10.5 fL (8.0-11.0); Monocytes % 10.3; Neutrophils % 47.7; Platelet Count 227 10^3/uL (130-400); RBC 4.79 10^6/uL (3.93-5.22); WBC 5.56 10^3/uL (4.4-10.8)
[2024-01-16 13:37] LABS: INR 1.1 (0.9-1.1)
[2024-01-16 13:42] LABS: ALT 24 U/L (14-59); AST 24 U/L (15-37); Alkaline Phosphatase 84 U/L (46-116); Anion Gap 9.8 mmol/L (3-11); BUN 24 mg/dL (7-18); Bilirubin, Total 0.3 mg/dL (0.2-1.0); CO2 28.2 mmol/L (21.0-32.0); CREATININE 0.7 mg/dL (0.55-1.02); Calcium 8.7 mg/dL (8.5-10.1); Chloride 103 mmol/L (98-107); Estimated GFR 94.15 (mL/min/1.73m2); Glucose 104 mg/dL (74-106); Potassium 3.7 mmol/L (3.5-5.1); Sodium 141 mmol/L (136-145); Total Protein 8.2 g/dL (6.4-8.2)
[2024-01-21 11:45] LABS: Tissue Transglutaminase IgA <4.0 CU (<20.0)
== END 2024-01-16 05:01 | disposition home or self-care (01) ==
LOC: LBO 05:00
PROVIDERS: Visit Provider Internal Medicine
DX: K74.60 Unspecified cirrhosis of liver (principal)
CPT/HCPCS: 36415; 80053; 82105; 85025; 85610

== ENCOUNTER → 2024-02-10 03:08 | Outpatient (CLI) | payer MEDICARE, OTHER, SELFPAY ==
--- NOTE | 2024-02-10 | DI.RAD_ITS ---
Exam(s) XR THORACIC SPINE COMPLETE EXAM: XR THORACIC SPINE COMPLETE CLINICAL HISTORY: CHRONIC BACK PAIN, M54.9, DORSALGIA, NO RECENT TRAUMA. TECHNIQUE: 2D digital imaging was performed of the thoracic spine. Three views were obtained. AP, swimmer's and lateral views were obtained. COMPARISON: CR RIGHT RIBS TO INCLUDE CXR from 07/18/2013 CR CHEST 2 VIEWS PA,LAT from 01/08/2014 CR,RF BARIUM SWALLOW W PA LAT CXR from 11/17/2015 FINDINGS: BONES: There is no fracture or destructive lesion. There are degenerative changes seen throughout the thoracic spine. DISKS:Alignment is within normal limits. There is mild disc space narrowing at several levels of the thoracic spine. SOFT TISSUE: Vascular calcifications are present. Anterior cervical disc fusion is seen in the lower cervical spine. Surgical clips are seen in the right upper quadrant of the abdomen which can be see n with prior cholecystectomy. The visualized lungs are clear. IMPRESSION: Degenerative changes in the thoracic spine. DATA REPOSITORY: RADIATION DOSE DELIVERED:
--- NOTE | 2024-02-10 | DI.RAD_ITS ---
Exam(s) XR LUMBAR SPINE COMPLETE EXAM: XR LUMBAR SPINE COMPLETE CLINICAL HISTORY: CHRONIC BACK PAIN, M54.9, DORSALGIA, NO RECENT TRAUMA. TECHNIQUE: 2D digital imaging was performed of the lumbar spine. Six images were obtained. AP, lat eral, right oblique, left oblique and L5-S1 spot views were obtained. COMPARISON: CR LUMBAR SPINE COMPLETE from 11/06/2011 CR XR DEXA BONE DENSITY W/WO JOAN from 06/08/2021 FINDINGS: BONES: No fracture or destructive lesion. There are endplate osteophytes seen at T12-L1 and L1-L2. Th ere are degenerative changes of the facets at L4-5 and L5-S1. DISKS: There is disc space narrowing at 2:12 L1 and L1-L2. ALIGNMENT: Lumbar spinal alignment is within normal limits. No spondylolysis or spondylolisthesis. SOFT TISSUE: Vascular calcifications are present. There are surgical clips in the right upper quadra nt of the abdomen likely reflecting prior cholecystectomy. IMPRESSION: Moderate degenerative changes in the lumbar spine. DATA REPOSITORY: RADIATION DOSE DELIVERED:
== END ==
PROVIDERS: Visit Provider Physician Assistant
DX: M51.34 Other intervertebral disc degeneration, thoracic region (principal)
CPT/HCPCS: 72072; 72110

== ENCOUNTER 2024-03-31 10:14 | Emergency (ER) | payer MEDICARE, OTHER, SELFPAY ==
[2024-03-31] VITALS (36 sets, daily range): BP systolic 108–152; BP diastolic 46–100; PULSE 81–116; RESP 13–25; TEMP 36.2; O2SAT 94–97
--- NOTE | 2024-03-31 | DI.RAD_ITS ---
Exam(s) XR CHEST 2V PA LATERAL EXAM: XR CHEST 2V PA LATERAL CLINICAL HISTORY: SOB, flank pain. TECHNIQUE: 2D digital imaging was performed. COMPARISON: No exams were available for comparison FINDINGS: 2 views: Lowered fusion plate noted in the lower cervical spine. Heart size is normal. The mediastinum is not widened. Right lung is clear. There is slightly increased markings in left lower lobe retrocardiac region. N o obvious pleural effusions evident. IMPRESSION: Mild increased left lower lobe retrocardiac markings. May represent mild infiltrate at this level.Th ere are no pleural effusions DATA REPOSITORY: RADIATION DOSE DELIVERED:
--- NOTE | 2024-03-31 10:15 | RT.EKG_ITS ---
APPROVED REPORT Exam: Resting ECG Reason for Exam: SOB Patient Location: E HR:89 bpm ECG Measurements Heart Rate 89 AXIS WV 167 P 52 QRSd 91 QRS -83 QT 342 T 31 QTc 416 Conclusion Sinus rhythm. 89 no stemi
--- NOTE | 2024-03-31 10:59 | W.ED.GENAD ---
Discharge Plan Discharge Details Chief Complaint: SOB Primary Care Provider: Unknown,Unknown ED Provider: Elo Leon Home Meds and New Rx's Prescriptions: No Action clobetasol 0.05 % cream 1 applic TP DAILY PRN (Reason: rash) Qty: 30 0RF azathioprine 50 mg tablet 50 mg PO DAILY duloxetine 60 mg capsule,delayed release(DR/EC) 60 mg PO DAILY Qty: 90 3RF pravastatin 40 mg tablet 40 mg PO DAILY Qty: 90 3RF omeprazole 40 mg capsule,delayed release(DR/EC) 40 mg PO DAILY Qty: 90 3RF doxepin 10 mg capsule 10 mg PO HS Qty: 90 3RF ropinirole 2 mg tablet 2 mg PO QHS Qty: 90 3RF ferrous sulfate [FeroSul] 325 mg (65 mg iron) tablet See Rx Instructions .ROUTE .COMPLEX Qty: 90 3RF Dose Instruction: TAKE 1 TABLET BY MOUTH EVERY OTHER DAY Rx Instructions: TAKE 1 TABLET BY MOUTH EVERY OTHER DAY HPI General Date/Time Provider Initiated Documentation: 03/31/24 10:16. HPI Narrative: Genoveva is a 69-year-old female presents to the emergency department today for evaluation of right flank pain. She reports that started at 7 AM when she woke up, was initially radiating down her right leg, but leg discomfort went away after walking around. Pain is described as a sharp constant pain to the right flank that does not radiate, rated 9 out of 10, exacerbated by movement or deep breathing. She denies associated fever/chills, congestion, chest pain, shortness of breath, nausea/vomiting, abdominal pain, change in bowel or bladder function. She does have constipation per baseline, says she last had a bowel movement this morning. No black/tarry stools. Normal urination. She does have a history of extensive abdominal surgeries, including gallbladder removal, total hysterectomy. Other forms that she has history of ovarian cancer, has been in remission since her 40s. PMH also significant for celiac disease and hepatic cirrhosis/DOHERTY. Related Data Home Medications Medication Instructions Recorded Confirmed clobetasol 0.05 % topical cream 1 applic topical DAILY PRN rash 01/02/22 05/23/23 #30 grams azathioprine 50 mg tablet 50 mg PO DAILY 10/11/22 05/23/23 doxepin 10 mg capsule 10 mg PO HS #90 caps 03/04/23 05/23/23 duloxetine 60 mg capsule,delayed 60 mg PO DAILY #90 caps 03/04/23 05/23/23 release omeprazole 40 mg capsule,delayed 40 mg PO DAILY #90 tab-caps 03/04/23 05/23/23 release pravastatin 40 mg tablet 40 mg PO DAILY #90 tab-caps 03/04/23 05/23/23 ropinirole 2 mg tablet 2 mg PO QHS #90 tabs 03/11/23 05/23/23 ferrous sulfate 325 mg (65 mg See Rx Instructions .Route 06/05/23 iron) tablet (FeroSul) .COMPLEX #90 tabs Previous Rx's Medication Instructions Recorded clobetasol 0.05 % topical cream 1 applic topical DAILY PRN rash 01/02/22 #30 grams doxepin 10 mg capsule 10 mg PO HS #90 caps 03/04/23 duloxetine 60 mg capsule,delayed 60 mg PO DAILY #90 caps 03/04/23 release omeprazole 40 mg capsule,delayed 40 mg PO DAILY #90 tab-caps 03/04/23 release pravastatin 40 mg tablet 40 mg PO DAILY #90 tab-caps 03/04/23 ropinirole 2 mg tablet 2 mg PO QHS #90 tabs 03/11/23 ferrous sulfate 325 mg (65 mg See Rx Instructions .Route 06/05/23 iron) tablet (FeroSul) .COMPLEX #90 tabs Allergies Allergy/AdvReac Type Severity Reaction Status Date / Time lisinopril AdvReac Intermediate COUGH Verified 03/31/24 10:20 morphine AdvReac Intermediate Visual Verified 03/31/24 10:20 Disturbances gabapentin AdvReac nightmares Verified 03/31/24 10:20 General Stated Complaint: SOB LONI: 3 Review of Systems Narrative: see HPI Exam Const General: cooperative, healthy appearing, well groomed and not diaphoretic Chest Chest: normal inspection of the chest Resp Effort & Inspection: normal respiratory effort and able to speak in complete sentences Auscultation: clear to auscultation bilaterally Cardio Rate: regular rate Rhythm: regular rhythm GI Inspection: normal to inspection and non-distended Palpation: soft, not rigid and nontender Auscultation: normal bowel sounds Skin General skin exam: no rashes or lesions noted Extrem Right lower extremity: normal to inspection, full ROM and hip/thigh Course Vital Signs Vital signs: Vital Signs Temperature 36.2 C L 03/31/24 10:17 Pulse 110 H 03/31/24 10:17 Respiratory Rate 18 03/31/24 10:17 Blood Pressure 152/75 H 03/31/24 10:17 Pulse Oximetry 97 03/31/24 10:17 Temperature 36.2 C L 03/31/24 10:17 Temperature Source Temporal Artery Scan 03/31/24 10:17 Pulse 87 03/31/24 10:46 Respiratory Rate 19 03/31/24 10:46 Respiratory Effort Normal, Non-Labored 03/31/24 10:46 Respiratory Depth Normal 03/31/24 10:46 Respiratory Pattern Normal 03/31/24 10:46 Blood Pressure 108/46 L 03/31/24 10:46 Blood Pressure Position Supine 03/31/24 10:46 Pulse Oximetry 94 03/31/24 10:46 Oxygen Delivery Method Room Air 03/31/24 10:46 Pain Level 9 03/31/24 10:46 Medical Decision Making Genoveva is a 69-year-old female presents to the emergency department today for evaluation of right flank pain. She reports that started at 7 AM when she woke up, was initially radiating down her right leg, but leg discomfort went away after walking around. Pain is described as a sharp constant pain to the right flank that does not radiate, rated 9 out of 10, exacerbated by movement or deep breathing. She denies associated fever/chills, congestion, chest pain, shortness of breath, nausea/vomiting, abdominal pain, change in bowel or bladder function. She does have constipation per baseline, says she last had a bowel movement this morning. No black/tarry stools. Normal urination. She does have a history of extensive abdominal surgeries, including gallbladder removal, total hysterectomy. Other forms that she has history of ovarian cancer, has been in remission since her 40s. PMH also significant for celiac disease and hepatic cirrhosis/DOHERTY. Physical exam reassuring. Easy work of breathing, lung sounds clear bilaterally. Normal heart sounds. Abdomen soft, nondistended, nontender to palpation. No flank ecchymosis or rashes noted. No CVA tenderness. DDx includes but is not limited to: biliary tract obstruction, pneumonia, pyelonephritis, gastritis, rib fracture, costochondritis, muscle spasm, diverticulitis, early shingles. ACS less likely based on aggravating factors I independently interpreted the following tests: EKG reassuring, normal sinus rhythm, rate 89. No changes consistent with acute ischemia. CBC, CMP, D-dimer, lipase, and troponins reassuring. CT abdomen/pelvis performed, partially healed fracture of the right fourth rib anterolaterally noted. No other intrathoracic or abdominal/pelvic findings noted. While in the emergency department Genoveva received 2 mg IV morphine with good pain control. Overall workup today reassuring. Likely muscle spasm related to right rib fracture. Genoveva reports that she fell couple weeks ago, hurting her tailbone and landing on her left ribs. She did not notice the pain in her right ribs until this morning, likely from rolling around in her sleep. Most likely musculoskeletal pain related to rib fracture. Recommend use of lidocaine patch, topical Voltaren gel, heat/ice, and follow-up with PCP if symptoms not significantly improved. As there is some diagnostic uncertainty, this could be the start of shingles, so advised looking out for a rash and seeking treatment if she does notice this. Imaging Data Radiologic Study: Radiologist's impression: Exam(s) CT CHEST/ABD/PEL W EXAM: CT CHEST/ABD/PEL W CLINICAL HISTORY: R flank pain. TECHNIQUE: Imaging Protocol: Axial computed tomography images with coronal and sagittal reformatted images were created and reviewed CONTRAST MATERIAL: Intravenous: Omnipaque 350 Contrast volume:100 ml Oral: None COMPARISON: No exams were available for comparison FINDINGS: CHEST: LUNGS: No confluent infiltrates nor pleural effusions nor ominous pulmonary nodules.. MEDIASTINUM: There is no hilar nor mediastinal adenopathy. Partially visualized thyroid unremarkable. CARDIAC: Heart size is normal. There is no pericardial effusion.Caliber of the thoracic aorta is within normal limits. OSSEOUS: There is a partially healed fracture of the right 4th rib, antral laterally. No other rib fractures identified. No vertebral fractures nor listhesis. ABDOMEN: There is no ascites. LIVER: There no focal hepatic lesions. There are mildly dilated intrahepatic ducts in this patient with prior cholecystectomy. GALLBLADDER/BILIARY: Gallbladder surgically absent. CBD diameter is upper normal. PANCREAS: No evidence of pancreatic mass nor dilatation of the pancreatic duct. SPLEEN: Spleen is not enlarged. There are no intrasplenic lesions. Splenic and portal veins are patent. ADRENALS: There are no significant adrenal masses. KIDNEYS: No calculi nor hydronephrosis. No solid renal masses. No cysts evident. ABDOMINAL AORTA: Abdominal aorta is peripherally calcified but not enlarged. Common iliac arteries also calcified but not enlarged. LYMPH NODES: There is no retroperitoneal nor paraaortic adenopathy. ABDOMINAL WALL: No evidence of significant anterior abdominal wall nor inguinal hernia. GI: There is no evidence of bowel obstruction.No free air. No abscess. PELVIS: LYMPH NODES: There is no intrapelvic nor inguinal adenopathy. GI: No evidence of appendicitis.No evidence of sigmoid diverticulitis. URINARY BLADDER: No calculi nor masses evident REPRODUCTIVE: Uterus is surgically absent. No abnormal adnexal masses. No free fluid in the pelvis. OSSEOUS: No significant osseous lesions. No acute fractures. IMPRESSION: 1. There is a subacute appearing healing nondisplaced fracture of the anterolateral aspect of the right 4th rib. No other intrathoracic findings. 2. Gallbladder surgically absent. CBD diameter is upper normal and there is mild dilatation of intrahepatic ducts. Probably related to post cholecystectomy status. 3. Previous hysterectomy. No abnormal adnexal masses. No free fluid. 4. No evidence of renal calculi nor hydronephrosis, given the history of flank pain Discussed with ER provider by phone Quality:SDOH Health Related Social Needs: No Data to Display PFSH All Active Problems 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 Followed by [facility] [place] [facility] Fatty liver disease, nonalcoholic (Chronic) Obstructive sleep apnea syndrome (Chronic) History of ovarian cancer (Chronic) Hyperlipidemia (Chronic) Depressive disorder (Chronic) Gastroesophageal reflux disease (Chronic) Celiac disease (Chronic) Constipation by delayed colonic transit (Chronic) Osteoarthritis (Chronic) Primary fibromyalgia syndrome (Chronic) Osteopenia (Chronic) Lichen sclerosus of vulva (Chronic) Restless leg syndrome (Chronic) Insomnia (Chronic) Sensorineural hearing loss (SNHL) of both ears (Chronic) Medical History Basal cell carcinoma (BCC) of left jain region Essential hypertension Prediabetes Primary malignant neoplasm of ovary Found on pathology from [facility], oophrectomy done for AUB Tubular adenoma of colon 2016 Surgical History History of carpal tunnel surgery Bilateral History of esophagogastroduodenoscopy (EGD) Hx of cataract surgery S/P abdominal hysterectomy (~2005) S/P arthroscopy of right shoulder S/P bilateral oophorectomy (~2005) S/P cervical discectomy S/P cholecystectomy S/P colonoscopy S/P tubal ligation (~2001) Status post right partial knee replacement (~2003) Family History (Updated 05/23/23 @ 10:42 by Sanam Bennett NP) Mother , 90 Colon cancer Diabetes Heart disease Father Colon cancer Diabetes Alzheimer's dementia Sister No problems noted. Sister Breast cancer Pancreatic cancer Sister Hypertension Sister Essential thrombocytosis Daughter Endometriosis Maternal Grandfather Cancer Unknown type Maternal Grandmother Cancer Unknown type Paternal Grandfather Cancer Unknown type Paternal Grandmother Leukemia Social History Smoking/Tobacco Use Status: Never Smoking risk assessment performed?: Yes Alcohol Intake: never Drug use: Never Substance use type: does not use Caregiver/Support person: No Household members: significant other Housing: house Communication Needs: Hard of Hearing Pets and animals: Yes Pets and animals: dog(s) Sexually active: No Do you think of yourself as: straight/heterosexual Current gender identity: female What is your relationship status?: living with partner How often do you talk on the phone with friends or family?: never How often do you get together with friends or relatives?: twice per week How often do you attend advent or jain services?: decline to answer Panel score (0-1 are the most socially isolated patients): 1 NHANES result reviewed/action taken: No Duration: 15-30 minutes/day Frequency: 5-6 times per week Suni/Hoahaoism: No preference Seatbelt use: always Do you feel safe at home: Yes Do you feel safe in your relationship?: Yes History History 3 Para 1 Hx # Term Pregnancies Multiple births Hx # Pregnancies Ectopic pregnancies AB induced Hx Number of Living Children 1 AB spontaneous 2
[2024-03-31 11:15] LABS: Abs Immature Grans 0.03 10^3/uL (0.0-0.06); Absolute Basophil Count 0.08 10^3/uL (0.0-0.2); Absolute Monocyte Count 1.38 10^3/uL (0.1-0.8); Absolute Neutrophil Count 5.02 10^3/uL (1.2-6.7); Basophils % 0.9 %; HCT 41.5 % (36.0-46.0); HGB 14.1 g/dL (11.2-15.7); Immature Grans % 0.3 %; Lymphocytes % 29.3 %; MCH 28.4 pg (27.0-33.0); MCV 84 fL (80-95); MPV 10.7 fL (8.0-11.0); Neutrophils % 54.5 %; Platelet Count 246 10^3/uL (130-400); RBC 4.97 10^6/uL (3.93-5.22); RDW 12.5 % (11.7-14.6); RDW-SD 37.9 fL; WBC 9.21 10^3/uL (4.4-10.8)
[2024-03-31 11:27] LABS: ALT 23 U/L (14-59); AST 21 U/L (15-37); Albumin 3.8 g/dL (3.4-5.0); Alkaline Phosphatase 95 U/L (46-116); Anion Gap 8.5 mmol/L (3-11); BUN 20 mg/dL (7-18); CO2 27.5 mmol/L (21.0-32.0); CREATININE 0.7 mg/dL (0.55-1.02); Calcium 8.7 mg/dL (8.5-10.1); Chloride 103 mmol/L (98-107); Estimated GFR 93.56 (mL/min/1.73m2); Glucose 67 mg/dL (74-106); Lipase 28 U/L (16-77); Magnesium 1.9 mg/dL (1.8-2.4); Potassium 3.7 mmol/L (3.5-5.1); Sodium 139 mmol/L (136-145); Total Protein 8.5 g/dL (6.4-8.2); Troponin I < 50 ng/L (< or =60)
[2024-03-31 11:43] LABS: D-Dimer 463 ng/mlFEU (<500)
[2024-03-31] MEDS: HYDROmorphone 2 MG/ML SYR 0.5 MG IVP (11:43)
[2024-03-31 13:01] LABS: Bilirubin Negative (Negative); Blood Negative (Negative); Clarity Clear (Clear); Glucose Negative (Negative); Ketones Negative (Negative); Leukocyte Esterase Negative (Negative); Nitrite Negative (Negative); Urobilinogen 0.2 mg/dL (Up to 0.2); pH 5.5 (5-8)
--- NOTE | 2024-03-31 13:03 | DI.CT_ITS ---
Exam(s) CT CHEST/ABD/PEL W EXAM: CT CHEST/ABD/PEL W CLINICAL HISTORY: R flank pain. TECHNIQUE: Imaging Protocol: Axial computed tomography images with coronal and sagittal reformatted images were created and reviewed CONTRAST MATERIAL: Intravenous: Omnipaque 350 Contrast volume:100 ml Oral: None COMPARISON: No exams were available for comparison FINDINGS: CHEST: LUNGS: No confluent infiltrates nor pleural effusions nor ominous pulmonary nodules.. MEDIASTINUM: There is no hilar nor mediastinal adenopathy. Partially visualized thyroid unremarkable. CARDIAC: Heart size is normal. There is no pericardial effusion.Caliber of the thoracic aorta is wit hin normal limits. OSSEOUS: There is a partially healed fracture of the right 4th rib, antral laterally. No other rib f ractures identified. No vertebral fractures nor listhesis. ABDOMEN: There is no ascites. LIVER: There no focal hepatic lesions. There are mildly dilated intrahepatic ducts in this patient w ith prior cholecystectomy. GALLBLADDER/BILIARY: Gallbladder surgically absent. CBD diameter is upper normal. PANCREAS: No evidence of pancreatic mass nor dilatation of the pancreatic duct. SPLEEN: Spleen is not enlarged. There are no intrasplenic lesions. Splenic and portal veins are huynh nt. ADRENALS: There are no significant adrenal masses. KIDNEYS: No calculi nor hydronephrosis. No solid renal masses. No cysts evident. ABDOMINAL AORTA: Abdominal aorta is peripherally calcified but not enlarged. Common iliac arteries a lso calcified but not enlarged. LYMPH NODES: There is no retroperitoneal nor paraaortic adenopathy. ABDOMINAL WALL: No evidence of significant anterior abdominal wall nor inguinal hernia. GI: There is no evidence of bowel obstruction.No free air. No abscess. PELVIS: LYMPH NODES: There is no intrapelvic nor inguinal adenopathy. GI: No evidence of appendicitis.No evidence of sigmoid diverticulitis. URINARY BLADDER: No calculi nor masses evident REPRODUCTIVE: Uterus is surgically absent. No abnormal adnexal masses. No free fluid in the pelvis. OSSEOUS: No significant osseous lesions. No acute fractures. IMPRESSION: 1. There is a subacute appearing healing nondisplaced fracture of the anterolateral aspect of the rig ht 4th rib. No other intrathoracic findings. 2. Gallbladder surgically absent. CBD diameter is upper normal and there is mild dilatation of intra hepatic ducts. Probably related to post cholecystectomy status. 3. Previous hysterectomy. No abnormal adnexal masses. No free fluid. 4. No evidence of renal calculi nor hydronephrosis, given the history of flank pain Discussed with ER provider by phone RADIATION DOSE DELIVERED: 1,304.04mGy.cm Total DLP DATA REPOSITORY: All CT scans at this facility are submitted to the National Radiology Data Registry (NRDR) Dose Index Registry (DIR) with the [employer] (ACR). RADIATION OPTIMIZATION: All CT scans at this facility use at least one of these dose optimization te chniques: automated exposure control; mA and/or kV adjustment per patient size (includes targeted exa ms where dose is matched to clinical indication); or iterative reconstruction.
[2024-03-31] MEDS: Normal Saline - Diluent 50 ML VIAL IJ (13:05)
[2024-03-31] MEDS: Omnipaque 350 MG/ML 100 ML BTL IJ (13:06)
[2024-03-31 14:28] LABS: Troponin I < 50 ng/L (< or =60)
[2024-03-31] MEDS: Lidocaine 5% Patch 1 PATCH TP (15:14)
== END 2024-03-31 15:23 | disposition home or self-care (01) ==
PROVIDERS: Emergency Provider Nurse Practitioner Family
DX: R10.9 Unspecified abdominal pain (principal); K59.00 Constipation, unspecified; S22.31XA Fracture of one rib, right side, initial encounter for closed fracture; W19.XXXA Unspecified fall, initial encounter
CPT/HCPCS: 74177; 80053; 83690; 93005; 96374; 99285; 71046; 71260; 81003; 83735; 84484; 85025; 85379; 93010; 99284; J1170; J3490

== ENCOUNTER → 2024-04-27 01:22 | Outpatient (CLI) | payer MEDICARE, OTHER, SELFPAY ==
--- OUTSIDE RECORDS SUMMARY | 2024-04-27 01:24 | XMS_ITS | Continuity of Care Document ---
Author Organization [facility], [facility] Address [address] [address] Assessment No assessment recorded. Plan of Treatment Reminders Order Date Submit Date Provider Last Modified By Organization Details Last Modified Time Details Appointments Follow Up 2023 07:30A Maida HENRIQUEZ Not available Not available Not available Lab None recorded . Referral None recorded . Procedures None recorded . Surgeries None recorded . Imaging None recorded . Medication Orders None recorded . Patient TargetsNo targets recorded. Patient InstructionsNo instructions recorded. Reason for Referral None Reported. Problems Name Status Onset Date Resolution Date Notes Provider Name and Address Organization Details Recorded Time Celiac disease Active 2023 FLOR BARNETT, [facility] 4 13:27:12 Depressive disorder Active 2023 FLOR BARNETT, [facility] 4 13:27:39 Fibromyalgia Active 2023 FLOR BARNETT, [facility] 4 13:36:01 Gastroesophageal reflux disease Active 2023 FLOR BARNETT, [facility] 4 13:29:32 Hyperlipidemia Active 2023 FLOR BARNETT, [facility] 4 13:29:51 Migraine Active 2011 FLOR BARNETT, [facility] 4 13:30:49 Nonulcer dyspepsia Active 2012 FLOR BARNETT, [facility] 4 13:31:11 Colonoscopy normal Completed 201811/18/2023 Removal Reason: Due in 2028 BISI FLYNN MA null, [facility] 4 13:32:37 Obstructive sleep apnea syndrome Active [address], [place], [address], [facility] 4 17:57:43 Transient cerebral ischemia Active [address], [place], [address], [facility] 4 18:00:33 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 Followed by [facility]. Due for egd 2023. No varices on 2021 egd. Liver biopsy 2021. [address], [place], [address], [facility] 4 18:00:16 Chronic back pain Active [address], [place], [address], [facility] 4 18:00:13 Osteoporosis Active 2023 only on [address], [place], [address], [facility] 4 18:12:37 Insomnia Active [address], [place], [address], [facility] 4 18:13:20 Restless legs Active [address], [place], [address], [facility] 4 18:13:26 Problem Notes None recorded. Procedures Surgical History Date Name Laterality Status Provider Name and Address Organization Details Recorded Time 2022 Most Recent Mammogram completed YAEL BRASWELL RN [facility] 4 10:47:44 2022 Date of Last Colonoscopy completed YAEL BRASWELL RN [facility] 4 10:48:07 2015 [facility] 13[facility]41[facility]13 2012 [facility] 4 13:40:43 2005 abdominal hysterectomy completed [address], [place], [address], [facility] 4 18:02:29 2005 [facility] 4 13:44:10 2004 re-release of carpal tunnel completed ZEKE FLYNN MA [facility] 4 13:44:53 2003 total knee replacement completed [address], [place], [address], [facility] 4 18:02:57 2002 excision of cervical intervertebral disc completed [address], [place], [address], [facility] 4 18:03:31 2001 ligation of fallopian tube [facility] 4 13:41:31 2000 Shoulder joint surgery completed [address], [facility] [address], [facility] 4 18:04:19 1998 cholecystectomy completed [address], [place], [address], [facility] 4 18:03:57 1996 re-release of carpal tunnel completed ZEKE FLYNN MA [facility] 4 13:45:33 Imaging Results None recorded. Procedure Notes None recorded. Medical Equipment None Reported. Allergies Allergen ID Allergen Name Allergen Category Reaction Reaction Severity Criticality Documentation Date Start Date Code Code System Note Provider Name and Address Organization Details Recorded Time 57375 lisinopri l medicatio n cough moderate Not available 11/18/20232018 27394 RxNorm BISI FLYNN MA [facility], [facility] 4 13:18:05 76948 morphine medicatio n Not available Not available Not available 11/18/20232018 7052 RxNorm visua l distu rbanc e YAEL BRASWELL RN [facility] 4 10:58:17 01520 gabapenti n medicatio n Not available Not available Not available 11/18/20232018 60526 RxNorm night christian YAEL BRASWELL RN [facility] 4 10:58:01 Medications Name Sig Start Date Stop Date Status Note LastModified by Organization Details LastModified Time terbinafine HCl 1 % topical cream APPLY TO THE AFFECTED AND SURROUNDI NG AREAS OF SKIN BY TOPICAL ROUTE ONCE DAILY 2018 active Not Available Not Available Not Avai lable pravastatin 40 mg tablet Take 1 tablet every day by oral route. 2023 active Not Available Not Available Not Avai lable milk thistle 500 mg capsule Take 2 capsules every day by oral route. active Not Available Not Available No t Available clobetasol 0.05 % topical cream APPLY A THIN LAYER TO THE AFFECTED AREA(S) BY TOPICAL ROUTE 2 TIMES PER DAY 2018 active Not Available Not Available Not Avai lable azathioprin e 50 mg tablet Take 1 tablet every day by oral route. 2023 active Not Available Not Available Not Avai lable doxepin 10 mg capsule Take 1 capsule every day by oral route at bedtime. 2023 active Not Available Not Available Not Avai lable omeprazole 40 mg capsule,del ayed release Take 1 capsule every day by oral route. 2023 active Not Available Not Available Not Avai lable lactulose 10 gram oral packet Take 1 packet every day by oral route as needed. 01/29 completed Not Available Not Available Not Available ropinirole 2 mg tablet TAKE 1 TABLET (2 MG) BY ORAL ROUTE at bedtime 2023 active Not Available Not Available Not Avai lable duloxetine 60 mg capsule,del ayed release Take 1 capsule every day by oral route. 2023 active Not Available Not Available Not Avai lable multivitami n 04/08 completed Not Available Not Available Not Available turmeric take 500mg every other morning 04/08 completed Not Available Not Available Not Available aspirin 81 mg capsule Take 1 capsule every day by oral route. 01/29 completed Not Available Not Available Not Available Vitals Date Recorded Body weight Body temperature Oxygen saturation Oxygen saturation in Arterial blood by Pulse oximetry Respiratory rate Heart rate Systolic blood pressure Diastolic blood pressure Provider Name and Address Organization Details Last Updated DateTime 4 28475.7 7 g 98.2 [degF] 97 % 97 % 15 /min 92 /min 140 mm[Hg] 80 mm[Hg] MEAGAN MOBLEY RN [facility] 4 13:43:08 Social History Question Answer Notes LastModified by Organizat ion Details LastModified Time Tobacco Smoking Status Never Smoker YAEL BRASWELL RN [facility], [facility] 11/27/2023 10:36:49 Do You Have An Advance Directive? Yes Information n ot available 11/27/2023 Are You Currently Employed? No Information not available 11/27/2023 What Type Of Diet Are You Following? SPECIFIC DOHERTY Information n ot available 11/27/2023 What Do You Do For Fun? Puzzles Information not available 11/27/2023 Would You Say That, In General, Your Health Is Fair Information not available 11/27/2023 How Often Does Anyone, Including Family, Physically Hurt You? Never Information not available 11/27/2023 How Often Does Anyone, Including Family, Insult Or Talk Down To You? Never Information no t available 11/27/2023 How Often Does Anyone, Including Family, Threaten You With Harm? Never Information not available 11/27/2023 How Often Does Anyone, Including Family, Scream Or Curse At You? Never Information not available 11/27/2023 Within The Past 12 Months, You Worried That Your Food Would Run Out Before You Got Money To Buy More. Never True Information n ot available 11/27/2023 Within The Past 12 Months, The Food You Bought Just Didn't Last And You Didn't Have Money To Get More. Never True Information n ot available 11/27/2023 How Hard Is It For You To Pay For The Very Basics Like Food, Housing, Medical Care, And Heating? Would You Say It Is: Not Hard At All Information not available 11/27/2023 In The Past 12 Months, Has Lack Of Reliable Transportation Kept You From Medical Appointments, Meetings, Work Or From Getting Things Needed For Daily Living? No Information not available 11/27/2023 What Is Your Housing Situation Today? I Have Housing. Information not available 11/27/2023 Who Do You Live With? Information not available 11/27/2023 How Often In The Past Year Have You Used Marijuana (including Smoking, Vaping, Dabbing, Or Edibles)? Never Information not available 11/27/2023 How Often In The Past Year Have You Used Prescription Medications That Were Not Prescribed To You? Never Information n ot available 11/27/2023 How Often In The Past Year Have You Taken Your Own Prescription Medication More Than The Way It Was Prescribed Or For Different Reasons Than Its Intended Purpose? Never Information no t available 11/27/2023 How Often In The Past Year Have You Used Other Drugs (for Example, Heroin, Cocaine, Meth, Salvia, Inhalants)? Never Information not available 11/27/2023 Have You Ever Used IV Drugs? No Information not available 11/27/2023 Date Of Most Recent SBINS 10/12/2023 Information not available 11/27/2023 Are You Following A Low Salt Diet? Yes Information not available 11/27/2023 What Is Your Relationship Status? Information not available 11/27/2023 Are You Sexually Active? No Information not available 11/27/2023 What Contraceptive Method Was Reported At Start Of This Visit? Female Sterilization Information not available 11/27/2023 Do You Have Any Dietary Restrictions? Yes Information not available 11/27/2023 Do You Or Have You Ever Used Any Other Forms Of Tobacco Or Nicotine? No Information not available 11/27/2023 What Is Your Status? Not Information no t available 11/27/2023 Sex: Unknown Functional Status None recorded. Mental Status None recorded. Family History Relationship Description Onset Age of this Age Resolved Age Notes Mother Malignant tumor of colon Mother Diabetes mellitus Mother Heart disease Father Malignant tumor of colon Father Diabetes mellitus Father Essential hypertension Sister Heart disease Sister Malignant tumor of breast Sister Celiac disease Sister Disorder of thyroid gland Sister Leukemia Unspecified Relation Malignant tumor of digestive organ Medical History No medical history recorded. Gynecological History Statement/Question Response Current Control Method Hysterectom y Date of Last Colonoscopy 09/30/2022 Most Recent Mammogram 09/30/2022 Obstetrics History GPAL:G 0 P 0 0 0 0 Immunizations Vaccine Type Date Status Provider Name and Address Organization Details Recorded Time SARS-COV-2 (COVID-19) vaccine, UNSPECIFIED 12/13/2020 completed MEAGAN MOBLEY RN [facility], [facility] 01/29/2024 14:24:52 SARS-COV-2 (COVID-19) vaccine, UNSPECIFIED 01/10/2021 completed MEAGAN MOBLEY RN null, [facility] 01/29/2024 14:25:00 SARS-COV-2 (COVID-19) vaccine, UNSPECIFIED 08/29/2021 completed MEAGAN MOBLEY RN null, [facility] 01/29/2024 14:25:06 COVID-19, mRNA, LNP-S, bivalent, PF, 50 mcg/0.5 mL or 25mcg/0.25 mL dose 10/19/2022 completed RAÚL BERNAL, [facility] 01/29/2024 14:25:58 Pneumococcal conjugate PCV20, polysaccharide [id number] conjugate, adjuvant, PF 05/22/2022 completed RAÚL BERNAL, [facility] 01/29/2024 14:26:52 pneumococcal, unspecified formulation 02/10/2021 completed RAÚL BERNAL, [facility] 01/29/2024 14:27:34 Td, adsorbed, preservative free, adult use, Lf unspecified 12/30/2009 completed RAÚL BERNAL, [facility] 01/29/2024 14:27:56 Td, adsorbed, preservative free, adult use, Lf unspecified 02/10/2021 completed RAÚL BERNAL, [facility] 01/29/2024 14:28:09 influenza, unspecified formulation 07/05/2010 completed RAÚL BERNAL, [facility] 01/29/2024 14:28:33 Past Encounters Encounter ID Performer Location Encounter Start Date Encounter Closed Date Diagnosis/Indication Diagnosis SNOMED-CT Code [id number] ROSALBA HENRIQUEZ PA-C [facility] [place] [address] [place] [address] 04/08/2024 13:37:48 04/08/2024 15:10:30 Fracture of rib [id number] Health Concerns Section Related Observation LastModified by Organization Detai ls LastModified Time None Recorded Concern Status LastModified by Organization Details LastModified Time None Recorded Payers Encounter Date Sequence Insurance Name Policy Number Policy Desouza Covered Member ID [id number] Member ID Guarantor Name 04/08/2024 2 [employer] (MEDICARE SUPPLEMENT) Genoveva Peña [id number] Genoveva Peña 04/08/2024 1 [facility] (MEDICARE REPLACEMENT/A DVANTAGE - PPO) [id number] Genoveva Zaragoza Casey [id number] Genoveva Peña Notes Date Note Type Note Provider Name and Address Organization Details Recorded Time 04/08/2024 text/html HPI Notes: Toya jarvis is here for follow-up of recent ER visit for right anterior rib pain. She fractured her right fourth rib several weeks prior. Reinjured while gardening. Had sudden onset of pain. Imaging revealed partially healed fracture. Doing much better now. Pain is minimal at this point. No shortness of breath. No nausea. Not requiring any medications at this point for the pain. [address], [place], [address], [facility]. 04/08/2024 15:41:13 OBGyn Episode No OBEpisode recorded.
--- OUTSIDE RECORDS SUMMARY | 2024-04-27 01:24 | XMS_ITS | Clinical Summary ---
Author Organization [facility] Address [facility] [place] [address] Care Team Providers Care Horseradish Grinder Name Role Phone Sanam Bennett APRN Primary Care Provider [phone] Allergies Active Allergy Reactions Criticality Noted Date Comments Gabapentin (Bulk) 10/09/2022 Lisinopril 07/16/2011 Morphine 07/16/2011 Medications Medication Sig Dispensed Refills Start Date End Date Status clobetasol (TEMOVATE) 0.05 % ointment Apply topically as needed. Active pravastatin (PRAVACHOL) 40 mg tablet Take 40 mg by mouth daily. Active doxepin (SINEquan) 10 mg Capsule 09/05/2022 Active rOPINIRole (Requip) 1 mg Tablet Take 2 mg by mouth nightly. 09/05/[address] (Cymbalta) 60 mg Capsule, Delayed Release(E.C.) 09/05/2022 Active omeprazole (PriLOSEC) 40 mg Capsule, Delayed Release(E.C.) Take 40 mg by mouth daily. 07/02/2022 Active MILK THISTLE ORAL Take 1,000 mg by mouth daily. Active multivitamin (THERAGRAN) Tablet Take 1 tablet by mouth daily. Centrum Silver Active azaTHIOprine (Imuran) 50 mg tabletIndications:Au toimmune hepatitis Take 1 tablet by mouth daily. 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 02/07/2024 10:10 AM EDT Laboratory Appointment Lab [address] [place] [address] Hepatic cirrhosis, unspecified hepatic cirrhosis type, unspecified whether ascites present; Autoimmune hepatitis 02/07/2024 7:37 AM EDT - 02/07/2024 11:59 PM EDT Hospital En[place] [address] Mily Garcia MD Hepatic cirrhosis, unspecified hepatic cirrhosis type, unspecified whether ascites present; Autoimmune hepatitis Discharge Disposition: Home 02/07/2024 Travel from Last 3 Months Family History Medical History Relation Comments Macular Degeneration Father Cataracts Mother Amblyopia Sister Cataracts Sister Glaucoma Neg Hx Retinal Detachment Neg Hx Relation Status Comments Father Mother Sister Social History Tobacco Use Types Packs/Day Years Used Date Smoking Tobacco: Never Smokeless Tobacco: Never Tobacco Cessation:Counseling Given: Not Answered Comments:Denies vaping Alcohol Use Standard Drinks/Week Comments No 0 (1 standard drink = 0.6 oz pur e alcohol) Sex and Gender Information Value Date Recorded Sex Assigned at Female 05/02/2023 5:23 PM EDT Gender Identity Female 05/02/2023 5:23 PM EDT Sexual Orientation Straight 05/02/2023 5: 23 PM EDT Last Filed Vital Signs Vital Sign Reading Time Taken Comments Blood Pressure 124/57 06/28/2023 11:28 AM EDT Pulse 57 06/28/2023 11:28 AM EDT Temperature 36 ??C (96.8 ??F) 09/10/2022 2:16 PM EST Respiratory Rate 14 09/10/2022 5:30 PM EST Oxygen Saturation 98% 09/10/2022 3:48 PM EST Inhaled Oxygen Concentration - - Weight 77 kg (169 lb 12.8 oz) 06/28/2023 11:28 A M EDT Height 154.9 cm (5' 1) 06/28/2023 11:28 AM EDT Body Mass Index 32.08 06/28/2023 11:28 AM EDT Plan of Treatment Upcoming Encounters Date Type Department Care Team (Late st Contact Info) Description 09/17/2024 9:00 AM EST [place]oint[place] [address] Mily Garcia MD [facility] [place] [address] 09/17/2024 9:45 AM EST Laboratory Appointment Lab [address] [place] [phone] 09/17/2024 11:30 AM EST Office [place] [phone] Mily Garcia MD [facility] [place] [address] Health Maintenance Due Date Last Done Comments CT Colonography 1955 FIT DNA 1955 FIT 1955 Sigmoidoscopy 1955 Hepatitis C Screening 1973 Tdap adult 1974 Tetanus vaccine 1974 Breast Cancer Share Decision Needed 1995 Breast Cancer screening 1995 Zoster vaccine (1 of 2) 2005 Advance Directive 2010 Bone Density Scan 02/26/2020 Pneumoccocal Vaccine: 65+ (1 of 1 - PCV) 02/26/2020 Covid-19 Vaccine (1 - 2022-2 4 season) 2023 Influenza (Flu) vaccine (1 o f 1 - Influenza standard series) 05/31/2024 Diabetes Screening (HgbA1C o r Glucose) 02/06/2027 02/07/2024, 06/28/2023, 02/04/2023, Additional history exists Colonoscopy 09/10/2027 09/10/2022, 09/10/2022 Colorectal Cancer Screening 09/10/2027 Sigmoidoscopy (10 year) with FIT yearly 09/10/2032 09/10/2022, 09/10/2022 Procedures Procedure Name Priority Date/Time Associated Diagnosis Comments DIFFERENTIAL, AUTOMATED Routine 02/07/20 24 10:06 AM EDT Hepatic cirrhosis, unspecified hepatic cirrhosis type, unspecified whether ascites present Autoimmune hepatitis HEMOGRAM Routine 02/07/2024 10:06 AM EDT Hepatic cirrhosis, unspecified hepatic cirrhosis type, unspecified whether ascites present Autoimmune hepatitis HC ALPHA FETOPROTEIN TUMOR MARKER Routine 02/07/2024 10:06 AM EDT Hepatic cirrhosis, unspecified hepatic cirrhosis type, unspecified whether ascites present Autoimmune hepatitis HC TISSUE TRANSGLUTAMINASE AB Routine 02/07/2024 10:06 AM EDT Hepatic cirrhosis, unspecified hepatic cirrhosis type, unspecified whether ascites present Autoimmune hepatitis HC CBC,PLT & AUTO DIFF Routine 4 10:06 AM EDT Hepatic cirrhosis, unspecified hepatic cirrhosis type, unspecified whether ascites present Autoimmune hepatitis COMPREHENSIVE METABOLIC PANEL (NON-FASTING) Routine 02/07/2024 10:06 AM EDT Hepatic cirrhosis, unspecified hepatic cirrhosis type, unspecified whether ascites present Autoimmune hepatitis HC PROTHROMBIN TIME Routine 02/07/2024 1 0:06 AM EDT Hepatic cirrhosis, unspecified hepatic cirrhosis type, unspecified whether ascites present Autoimmune hepatitis US ABDOMEN LIMITED HEPATOLOGY PROTOCOL Routine 02/07/2024 9:16 AM EDT Hepatic cirrhosis, unspecified hepatic cirrhosis type, unspecified whether ascites present Autoimmune hepatitis COLONOSCOPY Routine 09/10/2022 2:46 PM EST from Last 3 Months or Most Recently Relevant to Health Maintenance Results * Hemogram (02/07/2024 10:06 AM EDT) WBC 6.2 4.0 - 9.5 x10(3)/[facility] LAB[facility] RBC 4.73 4.00 - 5.21 x10(6)/[facility] Hemoglobin 13.4 11.7 - 15.5 g/dL [facility] Hematocrit 40.8 35.7 - 45.8 % [facility] MCV 86.3 82.6 - 94.4 [facility]ORY MCH 28.3 27.1 - 32.[address] [facility] MCHC 32.8 31.7 - 35.0 g/dL [facility] Platelets 231 145 - 357 x10(3)/[facility] RDWSD 41.5 37.0 - 46.0 [facility] RDWCV 13.2 11.5 - 14.1 % [facility] MPV 10.6 7.6 - 12.9 [facility] nRBC % Auto 0.0 % [facility] nRBC Abs Auto 0.000 0.000 - 0.000 x10(3)/[facility] Blood 02/07/2024 10:0 6 AM EDT 02/07/2024 10:21 AM EDT Narrative Resulting Agency Comment Spec In Lab Mily Garcia MD HEMATOLOGY ORDERABLE S [facility] [place] [address] * Differential, Automated (02/07/2024 10:06 AM EDT) Neutrophils % 47.1 % [facility] Neutr Abs (ANC) 2.92 1.70 - 6.10 x10(3)/[facility] Lymphocytes % 38.0 % [facility] Lymphocytes Abs 2.4 0.9 - 3.2 x10(3)/[facility] Monocytes % 11.5 % [facility] Monocyte Abs 0.7 0.3 - 0.9 x10(3)/[facility] Eosinophils % 2.1 % [facility] Eosinophils Abs 0.1 0.0 - 0.4 x10(3)/[facility] Basophils % 1.0 % [facility] Basophils Abs 0.1 0.0 - 0.1 x10(3)/[facility] Immature Gran % 0.30 % [facility] Comment: Immature granulocytes(IG's)percentage and absolute count will include metamyelocytes, myelocytes, and promyelocytes. Blood smears from CBCs yielding IG's will be scanned manually for concordance. If this scan disagrees with the automated IG or if promyelocytes are noted, a manual differential will be performed. Yuliet Gran Abs 0.02 0.00 - 0.04 x10(3)/[facility] Blood 02/07/2024 10:0 6 AM EDT 02/07/2024 10:21 AM EDT Narrative Resulting Agency Comment Spec In Lab Mily Garcia MD HEMATOLOGY ORDERABLE S Performing Organization Address City/[facility]/ZIP Co de Phone Number [facility] [place] [address] * Tissue transglutaminase, IgA (02/07/2024 10:06 AM EDT) Pathologist [facility] TTG IgA Ab <0.4 <=10.0 u/ml [facility] Comment: Negative: ??<7 units/mL Indeterminate: 7-10 units/mL Positive: ??>10 units/mL Blood 02/07/2024 10:0 6 AM EDT 02/10/2024 7:34 AM EDT Narrative Resulting Agency Comment Spec In Lab Mily Garcia MD IMMUNOLOGY ORDERABLE S [facility] [place] [address] * AFP tumor marker (02/07/2024 10:06 AM EDT) Pathologist [facility] AFP 3.0 <=8.3 ng/mL [facility] Comment: This result was generated using a Radha Anshu immunoassay. ??Results obtained from other methods or manufacturers cannot be used interchangeably with this method. Blood 02/07/2024 10:0 6 AM EDT 02/07/2024 10:21 AM EDT Narrative Resulting Agency Comment Spec In Lab Mily Garcia MD CHEMISTRY ORDERABLES Performing Organization Address [facility] de Phone Number [facility] [place] [address] * Prothrombin Time (02/07/2024 10:06 AM EDT) PT 11.8 9.4 - 12.[address] [facility] INR 1.0 [facility] Comment: An INR <2.0 indicates adequate procoagulant activity for hemostasis in most patients without underlying bleeding disorders, though the INR may not adequately reflect hemostatic capacity in patients with liver disease and synthetic impairment. The recommended target INR range for therapeutic anticoagulation is 2.0 ? 3.0 for most applications, though lower and higher ranges may be appropriate depending on clinical circumstances. Blood 02/07/2024 10:0 6 AM EDT 02/07/2024 10:21 AM EDT Narrative Resulting Agency Comment Spec In Lab Mily Garcia MD HEMATOLOGY ORDERABLE S Performing Organization Address [facility] de Phone Number [facility] [place] [address] * (ABNORMAL) Comprehensive metabolic panel (non-fasting) (02/07/2024 10:06 AM EDT) Glucose Lvl 93 65 - 199 mg/dL [facility] Comment:Diabetes: >=200 mg/d L plus symptoms BUN 17 8 - 18 mg/dL [facility] Creatinine 0.63(L) 0.70 - 1.20 mg/dL [facility] Sodium 141 135 - 145 mmol/L [facility] Potassium 4.4 3.5 - 5.0 mmol/L [facility] Comment: Please note: ??Patients with WBC >100,000 may have falsely elevated Potassium levels. ??For accurate Potassium quantification in these patients send serum separator tube (gold top) for subsequent determinations. ??Contact the Clinical Chemistry Laboratory if there are any questions. Chloride 104 98 - 107 mmol/L [facility] CO2 26 22 - 31 mmol/L [facility] Anion Gap 11 5 - 15 mmol/L [facility] Calcium 9.1 8.5 - 10.5 mg/dL [facility] Total Protein 7.7 6.1 - 8.0 g/dL [facility] Albumin 4.4 3.2 - 5.2 g/dL [facility] AST 25 0 - 30 unit/L [facility] ALT 14 0 - 30 unit/L [facility] Alk Phos 83 35 - 105 unit/L [facility] Total Bilirubin 0.2 0.2 - 1.3 mg/dL [facility] Estimated GFR 97 >=60 mL/min/1. 73 m?? [facility] Comment: This patient's estimated GFR was calculated using the 2020 CKD-EPI equation. The estimated GFR can vary from the measured GFR by up to 30% in the absence of rapidly changing kidney function. Assessment of the estimated GFR is not appropriate when creatinine concentrations are rapidly changing. For clinical situations in which a more precise estimate of GFR is necessary, consider alternative methods of GFR estimation such as a 24-hour urine creatinine clearance. Assignment of CKD stage 1-5 for patients with an eGFR near the transition point between stages may be based on clinical assessment of muscle mass and symptoms in addition to eGFR. Blood 02/07/2024 10:0 6 AM EDT 02/07/2024 10:21 AM EDT Narrative Resulting Agency Comment Spec In Lab Mily Garcia MD CHEMISTRY ORDERABLES [facility] [place] [address] * US Abdomen Limited Hepatology Protocol (02/07/2024 9:16 AM EDT) WORKSTATION ID [id number] [facility] Anatomical Region Laterality Modality Abdomen Ultrasound 02/07/2024 9:16 AM EDT Impressions 02/07/2024 9:42 AM EDT 1. ??Normal liver size. Echogenic liver parenchyma consistent with chronic liver disease. No focal hepatic lesion identified. 2. ??Normal hepatopetal flow through the main portal vein. 3. ??No ascites. 4. ??Status post cholecystectomy. No choledocholithiasis. I have personally reviewed the image(s) and the resident's interpretation and agree with the findings, Que Tee MD at 02/07/2024 9:35 AM Thank you for letting us participate in the care of this patient. If you are a health care provider and have any questions regarding this report, please contact the number above. For patients who have questions, please contact the health day care aide that requested your imaging first. ?Que Tee, Staff Physician Electronically Signed Final Report ?? 02/07/2024 09:42 am Narrative 02/07/2024 9:42 AM EDT Abdominal ? (Signed Final 02/07/2024 09:42 am) PATIENT INFO: ID #: ? [id number] ?: ??[birth year] (68 yrs)(F) Name: ? GENOVEVA A ?Visit Date: 02/07/2024 09:16 am ? CASEY PERFORMED BY: Attending: ?Randal GO, Que Mathis Resident: ? Bobby Gotti MD Performed By: ? Cecy Krueger RDMS Referred By: ?MILY GARCIA Location: ? [place] SERVICE(S) PROVIDED: [facility] - Hepatology Protocol - Abdominal ?[id number] Limited Survey Single Organ or Quadrant - [id number] INDICATIONS: cirrhosis, HCC screening TECHNIQUE/SCAN QUALITY: Scan Quality: ?? Limited by bowel gas COMPARISON: US: 06/28/23 ------ LIVER: ------ Right Lobe Length: ?? 13.0 ?? cm Echogenicity/Echotexture: ?? Coarse parenchyma without ? capsular nodularity Portal Veins: ?Hepatopetal GALLBLADDER: Cholelithiasis: ?Surgically absent Focal Tenderness: ?Negative sonographic Lin's sign BILIARY TRACT: Intrahepatic Ducts: ?? Normal Extrahepatic Ducts: ?? Normal Common Duct Size: ? 4.0 ? mm FLUID COLLECTIONS: Ascites not present on 4 quadrant evaluation. Procedure Note Que Tee MD - 02/07/2024 Abdominal (Signed Final 02/07/2024 09:42 am) PATIENT INFO: ID #: [id number] : [birth year] (68 yrs)(F) Name: GENOVEVA Zaragoza Visit Date: 02/07/2024 09:16 am CASEY PERFORMED BY: Attending: Que Tee MD Resident: Bobby Gotti MD Performed By: Cecy Krueger RDMS Referred By: MILY GARCAI Location: [place] SERVICE(S) PROVIDED: [facility] - Hepatology Protocol - Abdominal [id number] Limited Survey Single Organ or Quadrant - [id number] INDICATIONS: cirrhosis, HCC screening TECHNIQUE/SCAN QUALITY: Scan Quality: Limited by bowel gas COMPARISON: US: 06/28/23 ------ LIVER: ------ Right Lobe Length: 13.0 cm Echogenicity/Echotexture: Coarse parenchyma without capsular nodularity Portal Veins: Hepatopetal GALLBLADDER: Cholelithiasis: Surgically absent Focal Tenderness: Negative sonographic Lin's sign BILIARY TRACT: Intrahepatic Ducts: Normal Extrahepatic Ducts: Normal Common Duct Size: 4.0 mm FLUID COLLECTIONS: Ascites not present on 4 quadrant evaluation. IMPRESSION 1. Normal liver size. Echogenic liver parenchyma consistent with chronic liver disease. No focal hepatic lesion identified. 2. Normal hepatopetal flow through the main portal vein. 3. No ascites. 4. Status post cholecystectomy. No choledocholithiasis. I have personally reviewed the image(s) and the resident's interpretation and agree with the findings, Que Tee MD at 02/07/2024 9:35 AM Thank you for letting us participate in the care of this patient. If you are a health care provider and have any questions regarding this report, please contact the number above. For patients who have questions, please contact the health day care aide that requested your imaging first. Que Tee, Staff Physician Electronically Signed Final Report 02/07/2024 09:42 am Mily Garcia MD IMG US GEN ORDERABLE S * COLONOSCOPY (09/10/2022 2:46 PM EST) COLONOSCOPY [facility] Endoscopy Procedure Date: 09/10/2022 2:46 PM ? Patient Name: Genoveva Whiting ? Date of : 1955 ? Age: 67 ? Order #: [id number] ? Instrument Name: [id number] ? Procedure: ? Colonoscopy Indications: ? Family history of colon cancer in ? multiple first-degree relatives Providers: ? Matthew Najrea MD, Yunior Neri ? RAÚL Jay, Jelena Torres MD: ?Genoveva Maher MD, Sanam ? Adjovu Medicines: ? Monitored Anesthesia Care Complications: ? No immediate complications. Procedure: ? Pre-Anesthesia Assessment: ? - Prior to the procedure, a History ? and Physical was performed, and ? patient medications and allergies ? were reviewed. The patient is ? competent. The risks and benefits ? of the procedure and the sedation ? options and risks were discussed ? with the patient. All questions ? were answered and informed consent ? was obtained. Patient ? identification and proposed ? procedure were verified by the ? physician in the pre-procedure ? area. Mental Status Examination: ? alert and oriented. Airway ? Examination: normal oropharyngeal ? airway and neck mobility. ? Respiratory Examination: clear to ? auscultation. CV Examination: ? normal. Prophylactic Antibiotics: ? The patient does not require ? prophylactic antibiotics. Prior ? Anticoagulants: The patient has ? taken no anticoagulant or ? antiplatelet agents. ASA Grade ? Assessment: II - A patient with ? mild systemic disease. After ? reviewing the risks and benefits, ? the patient was deemed in ? satisfactory condition to undergo ? the procedure. The anesthesia plan ? was to use monitored anesthesia ? care (MAC). Immediately prior to ? administration of medications, the ? patient was re-assessed for ? adequacy to receive sedatives. The ? heart rate, respiratory rate, ? oxygen saturations, blood pressure, ? adequacy of pulmonary ventilation, ? and response to care were monitored ? throughout the procedure. The ? physical status of the patient was ? re-assessed after the procedure. ? The procedure, indications, ? benefits, risks and alternatives ? were explained to the patient. ? Specifically discussed were ? potential complications including, ? but not limited to, bleeding, ? perforation, infection, missing a ? cancer, and adverse medication ? reactions. The patient was placed ? in the left lateral decubitus ? position, and a digital rectal exam ? was performed. The Colonoscope was ? inserted in the anus and under ? direct visualization, advanced to ? the terminal ileum. Careful ? inspection was made as the ? colonoscope was withdrawn. The ? colonoscopy was performed without ? difficulty. The patient tolerated ? the procedure well. The quality of ? the bowel preparation was excellent. ? Findings: ? The perianal and digital rectal examinations were ? normal. ? Multiple small and large-mouthed diverticula were ? found in the sigmoid colon. ? The terminal ileum appeared normal. ? Moderate Sedation: ? Not applicable - See Anesthesia documentation Impression: ?- Diverticulosis in the sigmoid ? colon. ? - The examined portion of the ileum ? was normal. ? - No specimens collected. Recommendation: ?- Repeat exam in five years ? Attending Participation: ? I personally performed the entire procedure. ? ___ Matthew Najera MD 09/10/2022 3:27:27 PM This report has been signed electronically. Number of Addenda: 0 Note Initiated On: 09/10/2022 2:46 PM PROVATION 09/10/2022 2:46 PM EST Genoveva Maher MD GENERAL SURGICAL ORD ERABLES PROVATION from Last 3 Months or Most Recently Relevant to Health Maintenance Care Teams Horseradish Grinder Relationship Specialty Start Date End Date Sanam Bennett APRN [address] [place], [place] [id number] PCP - General Family Medicine 09/06/22
--- OUTSIDE RECORDS SUMMARY | 2024-04-27 01:24 | XMS_ITS | Data Portability ---
Author Organization [place] [facility], [facility] Address [place] [address] Assessment No assessment recorded. Plan of Treatment Reminders Order Date Submit Date Provider Last Modified By Organization Details Last Modified Time Details Appointments Follow Up 2023 07:30A Maida HENRIQUEZ Not available Not available Not available Lab None recorded. Referral None recorded. Procedures None recorded. Surgeries None recorded. Imaging XR, thoracic spine, 2 view - Chronic back pain. No recent trauma [address] (Radiology), [address] [place] [address] [place], [address], 04/22/2024 15:22:38 XR, lumbar spine - Chronic back pain. No recent trauma [address] (Radiology), [address] [place] [address] [place], [address], 04/22/2024 15:22:33 MAMMO, screening , bilateral [address] (Radiology), [address] [place] [address] [place], [address], 04/22/2024 15:23:32 Medication Orders None recorded. Patient TargetsNo targets recorded. Patient Instructions Encounter Date Encounter Id Patient Instructions Last Modified By Organization Details Last Modified Time 01/30/2024 [id number] We will get an x-ray of your thoracic and lumbar spines. Continue with current medication. I will order a mammogram to do this summer. We will get a bone density this fall. [email or web address] Not available 01/30/2024 13:27:40 Reason for Referral None Reported. Results Created Date Observation Date Name Description Value Unit Range Abnormal Flag LastModifiedBy Organization Detail LastModifiedTime 02/10/20 24 02/10/2024 x-ray imagi ng repor t Patiisabela t Name: Carr Unit #: [id number] Loc: DI Orderi ng Provid er: Fang Suarez Accoun t #: [id number] Status : REG CLI Primar y Care Provid er: Unknow n,Unkn own Date of Exam: Sex: F Admiss ion Date: : 1954 Age: 68 Exam(s ) XR THORAC IC SPINE COMPLE TE EXAM: XR THORAC IC SPINE COMPLE TE CLINIC AL HISTOR Y: CHRONI C BACK PAIN, M54.9, DORSAL TALAT, NO RECENT TRAUMA . TECHNI QUE: 2D digita l imagin g was perfor med of the thorac ic spine. Three views were obtain ed. AP, swimme r's and latera l views were obtain ed. COMPAR CELSO: CR RIGHT RIBS TO INCLUD E CXR from 2012 CR CHEST 2 VIEWS PA,LAT from 2013 CR,RF BARIUM SWALLO W W PA LAT CXR from 2015 FINDIN GS: BONES: There is no fractu re or destru ctive lesion . There are degene rative change s seen throug hout the thorac ic spine. DISKS: Alignm ent is within normal limits . There is mild disc space narrow ing at severa l levels of the thorac ic spine. SOFT TISSUE : Vascul ar calcif icatio ns are presen t. Anteri or cervic al disc fusion is seen in the lower cervic al spine. Surgic al clips are seen in the right upper quadra nt of the abdome n which can be seen with prior cholec ystect tommie. The visual ized lungs are clear. IMPRES MARGARET: Degene rative change s in the thorac ic spine. DATA REPOSI TORY: RADIAT ION DOSE DELIVE RED: Ordere d By: Fang Suarez CC: ------ ------ ------ ------ ------ ------ ------ ------ ------ ------ ------ ------ - Dictat ed By: Gregory Roy M.D. 920 Transc ribed By: Gregory Roy 920 This is privil eged, confid ential inform ation intend ed only for the provid er named. Any use or distri bution by any person other than this provid er is strict ly prohib ited. If you receiv e this report in error, please notify us immedi ately at and return the origin al report to us at the addres s above. Thank- you. edy [facility] [address] [facility] [place], [address] 02/10/2024 16:14:33 02/10/20 24 02/10/2024 x-ray imagi ng repor t Dora t Name: Carr Unit #: [id number] Loc: DI Orderi ng Provid er: Fang Suareznic t #: [id number] Status : REG CLI Primar y Care Provid er: Unknow n,Unkn own Date of Exam: Sex: F Admiss ion Date: : 1954 Age: 68 Exam(s ) XR LUMBAR SPINE COMPLE TE EXAM: XR LUMBAR SPINE COMPLE TE CLINIC AL HISTOR Y: CHRONI C BACK PAIN, M54.9, DORSAL TALAT, NO RECENT TRAUMA . TECHNI QUE: 2D digita l imagin g was perfor med of the lumbar spine. Six images were obtain ed. AP, latera l, right obliqu e, left obliqu e and L5-S1 spot views were obtain ed. COMPAR CELSO: CR LUMBAR SPINE COMPLE TE from 2011 CR XR DEXA BONE DENSIT Y W/WO JOAN from 2020 FINDIN GS: BONES: No fractu re or destru ctive lesion . There are endpla te osteop hytes seen at T12-L1 and L1-L2. There are degene rative change s of the facets at L4-5 and L5-S1. DISKS: There is disc space narrow ing at 2:12 L1 and L1-L2. ALIGNM ENT: Lumbar spinal alignm ent is within normal limits . No spondy lolysi s or spondy lolist hesis. SOFT TISSUE : Vascul ar calcif icatio ns are presen t. There are surgic al clips in the right upper quadra nt of the abdome n likely reflec ting prior cholec ystect tommie. IMPRES MARGARET: Modera te degene rative change s in the lumbar spine. DATA REPOSI TORY: RADIAT ION DOSE DELIVE RED: Ordere d By: Fang Suarez CC: ------ ------ ------ ------ ------ ------ ------ ------ ------ ------ ------ ------ - Dictat ed By: Gregory oRy M.D. 922 Transc ribed By: Gregory Roy 922 This is privil eged, confid ential inform ation intend ed only for the provid er named. Any use or distri bution by any person other than this provid er is strict ly prohib ited. If you receiv e this report in error, please notify us immedi ately at and return the origin al report to us at the addres s above. Thank- you. edy [facility] [address] [place], [address] 02/10/2024 16:14:34 Result Notes None recorded. Problems Name Status Onset Date Resolution Date Notes Provider Name and Address Organization Details Recorded Time Celiac disease Active 2023 FLOR BARNETT [place] - [facility] 4 13:27:12 Depressive disorder Active 2023 FLOR BARNETT [place] [facility] 4 13:27:39 Fibromyalgia Active 2023 FLOR BARNETT, [facility] 4 13:36:01 Gastroesophageal reflux disease Active 2023 FLOR BARNETT, [facility] 4 13:29:32 Hyperlipidemia Active 2023 FLOR BARNETT, [facility] 4 13:29:51 Migraine Active 2011 FLOR BARNETT, [facility] 4 13:30:49 Nonulcer dyspepsia Active 2012 FLOR BARNETT, [facility] 4 13:31:11 Colonoscopy normal Completed 201811/18/2023 Removal Reason: Due in 2028 FLOR BARNETT, [facility] 4 13:32:37 Obstructive sleep apnea syndrome Active [address], [place], [address], [facility] 4 17:57:43 Transient cerebral ischemia Active [address], [place], [address], [facility] 4 18:00:33 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 Followed by [facility]. Due for egd 2023. No varices on 2021 egd. Liver biopsy 2021. [address], [place], [address], [facility] 4 18:00:16 Chronic back pain Active [address], [place], [address], [facility] 4 18:00:13 Osteoporosis Active 2023 only on forearm [address], [place], [address], [facility] 4 18:12:37 Insomnia Active [address], [place], [address], [facility] 4 18:13:20 Restless legs Active [address], [place], [address], [facility] 4 18:13:26 Problem Notes None recorded. Procedures Surgical History Date Name Laterality Status Provider Name and Address Organization Details Recorded Time 2022 Most Recent Mammogram completed [facility]EL [facility]WE[facility] 4 10:47:44 2022 Date of Last Colonoscopy completed YAEL BRASWELL [facility] 4 10:48:07 2015 extraction of cataract completed BISI FLYNN [facility] 4 13:41:13 2012 esophagogastroduodenoscopy completed BIRDIE FLYNN [facility] 4 13:40:43 2005 abdominal hysterectomy completed [address], [place], [address], [facility] 4 18:02:29 2005 [facility]oph[facility]omy [facility] 4 13:44:10 2004 re-release of carpal tunnel completed [facility] 4 13:44:53 2003 total knee replacement completed [address], [place], [address], [facility] 4 18:02:57 2002 excision of cervical intervertebral disc completed [address], [place], [address], [facility] 4 18:03:31 2001 ligation of fallopian tube completed FLOR PITT, [facility] 4 13:41:31 2000 Shoulder joint surgery completed [address], [place], [address], [facility] 4 18:04:19 1998 cholecystectomy completed [address], [place], [address], [facility] 4 18:03:57 1996 re-release of carpal tunnel completed FLOR WALLS, [facility] 4 13:45:33 Imaging Results Imaging Date Name Status LastModified by Organiz ation Details LastModified Time 02/10/2024 x-ray imaging report completed [id number] [place] [address] [place], [address] 02/10/2024 16:14:33 02/10/2024 x-ray imaging report completed [id number] [place] [address] Dr [facility] [place], [address] 02/10/2024 16:14:34 Procedure Notes None recorded. Medical Equipment None Reported. Allergies Allergen ID Allergen Name Allergen Category Reaction Reaction Severity Criticality Documentation Date Start Date Code Code System Note Provider Name and Address Organization Details Recorded Time 63341 lisinopri l medicatio n cough moderate Not available 11/18/20232018 65546 RxNorm FLOR BARNETT, [facility] 4 13:18:05 21283 morphine medicatio n Not available Not available Not available 11/18/20232018 7052 RxNorm visua l distu rbanc e YAEL BRASWELL RN null, [facility] 4 10:58:17 02890 gabapenti n medicatio n Not available Not available Not available 11/18/20232018 97068 RxNorm night anahi YAEL BRASWELL RN null, [facility] 4 10:58:01 Medications Name Sig Start Date [...] Address Organization Details Last Updated DateTime 4 42844.8 1 g 98.8 [degF] 98 % 98 % 15 /min 86 /min 124 mm[Hg] 68 mm[Hg] MEAGAN MOBLEY RN [facility] 4 12:57:59 Date Recorded Body weight Body temperature Oxygen saturation Oxygen saturation in Arterial blood by Pulse oximetry Respiratory rate Heart rate Systolic blood pressure Diastolic blood pressure Provider Name and Address Organization Details Last Updated DateTime 4 97478.7 7 g 98.2 [degF] 97 % 97 % 15 /min 92 /min 140 mm[Hg] 80 mm[Hg] MEAGAN MOBLEY RN [facility] 4 13:43:08 Social History Question Answer Notes LastModified by Organizat ion Details LastModified Time Tobacco Smoking Status Never Smoker YAEL BRASWELL RN [facility], [facility] 11/27/2023 10:36:49 Do You Have An [...] Time SARS-COV-2 (COVID-19) vaccine, UNSPECIFIED 12/13/2020 completed RAÚL BERNAL, [facility] 01/29/2024 14:24:52 SARS-COV-2 (COVID-19) vaccine, UNSPECIFIED 01/10/2021 completed MEAGAN MOBLEY RN null, [facility] 01/29/2024 14:25:00 SARS-COV-2 (COVID-19) vaccine, UNSPECIFIED 08/29/2021 completed MEAGAN MOBLEY RN null, [facility] 01/29/2024 14:25:06 COVID-19, mRNA, LNP-S, bivalent, PF, 50 mcg/0.5 mL or 25mcg/0.25 mL dose 10/19/2022 completed RAÚL BERNAL, [facility] 01/29/2024 14:25:58 Pneumococcal conjugate PCV20, polysaccharide [id number] conjugate, adjuvant, PF 05/22/2022 completed MEAGAN MOBLEY RN null, [facility] 01/29/2024 14:26:52 pneumococcal, unspecified formulation 02/10/2021 completed RAÚL BERNAL, [facility] 01/29/2024 14:27:34 Td, adsorbed, preservative free, adult use, Lf unspecified 12/30/2009 completed RAÚL BERNAL, [facility] 01/29/2024 14:27:56 Td, adsorbed, preservative free, adult use, Lf unspecified 02/10/2021 completed RAÚL BERNAL, [facility] 01/29/2024 14:28:09 influenza, unspecified formulation 07/05/2010 completed RAÚL BERNAL, [facility] 01/29/2024 14:28:33 Past Encounters Encounter ID Performer Location Encounter Start Date Encounter Closed Date Diagnosis/Indication Diagnosis SNOMED-CT Code [id number] ROSALBA HENRIQUEZ PA-C [facility] [address] 01/30/2024 12:43:33 01/30/2024 13:29:17 Chronic back pain 132812789 Screening for malignant neoplasm of breast 218819401 Insomnia 926606345 Restless legs 02353527 Cirrhosis of liver 84408 007 Hyperlipidemia 86616525 Osteoporosis 56500450 [id number] ROSALBA HENRIQUEZ PA-C [facility] [address] 04/08/2024 13:37:48 04/08/2024 15:10:30 Fracture of rib 91327774 Health Concerns Section Related Observation LastModified by Organization Detai ls LastModified Time None Recorded Concern Status LastModified by Organization Details LastModified Time None Recorded Advance Directives Directive Y: Payers Encounter Date Sequence Insurance Name Policy Number Policy Desouza Covered Member ID Desouza Member ID Guarantor Name 01/30/2024 2 [employer] - FOR LIFE (MEDICARE SUPPLEMENT) Genoveva Peña [id number] Genoveva Peña 01/30/2024 1 [place] Genoveva Peña [id number] Genoveva Peña 04/08/2024 2 [employer] - FOR LIFE (MEDICARE SUPPLEMENT) Genoveva Escobedotry [id number] Genoveva Peña 04/08/2024 1 [facility] (MEDICARE REPLACEMENT/A DVANTAGE - PPO) [id number] Genoveva Escobedotry [id number] Genoveva Peña Notes Date Note Type Note Provider Name and Address Organization Details Recorded Time 01/30/2024 text/html HPI Notes: Toya jarvis is here to establish with a CM to follow-up for 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 She follows with [facility] gastroenterology. She feels that her chronic issues are fairly well-controlled. She has chronic back pain that she would like to discuss. Generalized pain for as long as she can remember. Does not radiate into her lower or upper extremities. [address], [place], [address], [facility]. 01/30/2024 18:13:58 04/08/2024 text/html HPI Notes: Toya jarvis is [...] at this point for the pain. [address], [place], [address], [facility]. 04/08/2024 15:41:13 OBGyn Episode No OBEpisode recorded.
--- OUTSIDE RECORDS SUMMARY | 2024-04-27 01:24 | XMS_ITS | Continuity of Care Document ---
Author Organization [place] - [facility], [facility] [place] [address] Assessment No assessment recorded. Plan of Treatment Reminders Order Date Submit Date Provider Last Modified By Organization Details Last Modified Time Details Appointments Follow Up 2023 07:30A M ROSALBA HENRIQUEZ Not available Not available Not available Lab None recorded. Referral None recorded. Procedures None recorded. Surgeries None recorded. Imaging XR, thoracic spine, 2 view - Chronic back pain. No recent trauma [address] (Radiology), [address] [place] [address] [place], [address], 04/22/2024 15:22:38 XR, lumbar spine - Chronic back pain. No recent trauma [address] (Radiology), [address] [place] [address] [place], [address], 04/22/2024 15:22:33 MAMMO, screening , bilateral [address] (Radiology), [address] [place] [address] [place], [address], 04/22/2024 15:23:32 Medication Orders None recorded. Patient TargetsNo targets recorded. Patient Instructions Encounter Date Encounter Id Patient Instructions Last Modified By Organization Details Last Modified Time 01/30/2024 [id number] We will get an x-ray of your thoracic and lumbar spines. Continue with current medication. I will order a mammogram to do this summer. We will get a bone density this fall. [email or web address] Not available 01/30/2024 13:27:40 Reason for Referral None Reported. Results Created Date Observation Date Name Description Value Unit Range Abnormal Flag LastModifiedBy Organization Detail LastModifiedTime 02/10/20 24 02/10/2024 x-ray imagi ng repor t Patiisabela t Name: Carr Unit #: [id number] Loc: DI Orderi ng Provid er: Fang Suarez Accoun t #: [id number] 31 26 Status : REG CLI Primar [...] report in error, please notify us immedi yajairaly at and return the origin al report to us at the addres s above. Thank- you. edy [facility] [address] [place], [address] 02/10/2024 16:14:33 02/10/20 24 02/10/2024 x-ray imagi ng repor t Dora t Name: Carr Unit #: [id number] Loc: DI Orderi ng Provid er: Fang Suarez Cintia t #: [id number] 31 26 Status : REG CLI Primar [...] - Dictat ed By: Gregory Roy M.D. 922 Transc ribed By: Gregory Roy [...] the addres s above. Thank- you. edy [facility] [address] [place], [address] 02/10/2024 16:14:34 Result Notes None recorded. Problems Name Status Onset Date Resolution Date Notes Provider Name and Address Organization Details Recorded Time Celiac disease Active 2023 FLOR BARNETT [place] - [facility] 4 13:27:12 Depressive disorder Active 2023 FLOR BARNETT [place] [facility] 4 13:27:39 Fibromyalgia Active 2023 FLOR BARNETT, [facility] 4 13:36:01 Gastroesophageal reflux disease Active 2023 FLOR BARNETT, [facility] 4 13:29:32 Hyperlipidemia Active 2023 FLOR BARNETT, [facility] 4 13:29:51 Migraine Active 2011 FLOR BARNETT, [facility] 4 13:30:49 Nonulcer dyspepsia Active 2012 FLOR BARNETT, [facility] 4 13:31:11 Colonoscopy normal Completed 201811/18/2023 Removal Reason: Due in 2028 FLOR BARNETT, [facility] 4 13:32:37 Obstructive sleep apnea syndrome Active [address], [place], [address], [facility] 4 17:57:43 Transient cerebral ischemia Active [address], [place], [address], [facility] 4 18:00:33 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 Followed by [facility]. Due for egd 2023. No varices on 2021 egd. Liver biopsy 2021. [address], [place], [address], [facility] 4 18:00:16 Chronic back pain Active [address], [place], [address], [facility] 4 18:00:13 Osteoporosis Active 2023 only on forearm [address], [place], [address], [facility] 4 18:12:37 Insomnia Active [address], [place], [address], [facility] 4 18:13:20 Restless legs Active [address], [place], [address], [facility] 4 18:13:26 Problem Notes None recorded. Procedures Surgical History Date Name Laterality Status Provider Name and Address Organization Details Recorded Time 2022 Most Recent Mammogram completed YAEL BRASWELL RN [facility] 4 10:47:44 2022 Date of Last Colonoscopy completed YAEL BRASWELL RN [facility] 4 10:48:07 2015 extraction of cataract completed BISI FLYNN MA [facility] 4 13:41:13 2012 esophagogastroduodenoscopy completed BIRDIE FLYNN MA [facility] 4 13:40:43 2005 abdominal hysterectomy completed [address], [place], [address], [facility] 4 18:02:29 2005 [facility] 4 13:44:10 2004 re-release of carpal tunnel [facility] 4 13:44:53 01/01/ 2004 total knee replacement completed [address], [place], [address], [facility] 4 18:02:57 2002 excision of cervical intervertebral disc completed [address], [facility] [address], [facility] 4 18:03:31 2001 ligation of fallopian tube completed BIRDIE FLYNN MA [facility] 4 13:41:31 2000 Shoulder joint surgery completed [address], [place], [address], [facility] 4 18:04:19 1998 cholecystectomy completed [address], [place], [address], [facility] 4 18:03:57 1996 re-release of carpal tunnel completed ZEKE FLYNN MA [facility], [facility] 4 13:45:33 Imaging Results None recorded. Procedure Notes None recorded. Medical Equipment None Reported. Allergies Allergen ID Allergen Name Allergen Category Reaction Reaction Severity Criticality Documentation Date Start Date Code Code System Note Provider Name and Address Organization Details Recorded Time 53096 lisinopri l medicatio n cough moderate Not available 11/18/20232018 98113 RxNorm BISI FLYNN MA [facility], [facility] 4 13:18:05 43701 morphine medicatio n Not available Not available Not available 11/18/20232018 7052 RxNorm visua l distu rbanc e YAEL BRASWELL RN [facility] 4 10:58:17 04333 gabapenti n medicatio n Not available Not available Not available 11/18/20232018 10532 RxNorm arianna BRASWELL RN null, [place] - [facility], [facility]. 4 10:58:01 Medications Name Sig Start Date [...] Address Organization Details Last Updated DateTime 4 [address].8 1 g 98.8 [degF] 98 % 98 % 15 /min 86 /min 124 mm[Hg] 68 mm[Hg] MEAGAN MOBLEY RN [facility] 12:57:59 Social History Question Answer Notes LastModified by Organizat ion Details LastModified Time Tobacco Smoking Status Never Smoker YAEL BRASWELL RN [facility], [facility] 11/27/2023 10:36:49 Do You Have An Advance [...] (COVID-19) vaccine, UNSPECIFIED 12/13/2020 completed RAÚL BERNAL, [facility] 01/29/2024 14:24:52 SARS-COV-2 (COVID-19) vaccine, UNSPECIFIED 01/10/2021 completed RAÚL BERNAL, [facility] 01/29/2024 14:25:00 SARS-COV-2 (COVID-19) vaccine, UNSPECIFIED 08/29/2021 completed RAÚL BERNAL, [facility] 01/29/2024 14:25:06 COVID-19, mRNA, LNP-S, bivalent, PF, 50 mcg/0.5 mL or 25mcg/0.25 mL dose 10/19/2022 completed RAÚL BERNAL, [facility] 01/29/2024 14:25:58 Pneumococcal conjugate PCV20, polysaccharide SCO382 conjugate, adjuvant, PF 05/22/2022 completed RAÚL BERNAL, [facility] 01/29/2024 14:26:52 pneumococcal, unspecified formulation 02/10/2021 completed RAÚL BERNAL, [facility] 01/29/2024 14:27:34 Td, adsorbed, preservative free, adult use, Lf unspecified 12/30/2009 RAÚL Ramirez, [facility] 01/29/2024 14:27:56 Td, adsorbed, preservative free, adult use, Lf unspecified 02/10/2021 completed RAÚL BERNAL, [facility] 01/29/2024 14:28:09 influenza, unspecified formulation 07/05/2010 completed RAÚL BERNAL, [facility] 01/29/2024 14:28:33 Past Encounters Encounter ID Performer Location Encounter Start Date Encounter Closed Date Diagnosis/Indication Diagnosis SNOMED-CT Code [id number] ROSALBA HENRIQUEZ PA-C [facility] [address] [place] [address] 01/30/2024 12:43:33 01/30/2024 13:29:17 Chronic back pain 094758016 Screening for malignant neoplasm of breast 649187046 Insomnia 304122931 Restless legs 48217015 Cirrhosis of liver 04759 007 Hyperlipidemia 09671833 Osteoporosis 43607573 Health Concerns Section Related Observation LastModified by Organization Detai ls LastModified Time None Recorded Concern Status LastModified by Organization Details LastModified Time None Recorded Payers Encounter Date Sequence Insurance Name Policy Number Policy Desouza Covered Member ID Desouza Member ID Guarantor Name 01/30/2024 2 [employer] - FOR LIFE (MEDICARE SUPPLEMENT) Genoveva Peña [id number] Genoveva Peña 01/30/2024 1 [place]: [employer] Genoveva Peña [id number] Genoveva Peña Notes Date Note Type Note Provider Name and Address Organization Details Recorded Time 01/30/2024 text/html HPI Notes: Toya jarvis is here to establish with a CM to follow-up for 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 She follows with [facility] gastroenterology. She feels that her chronic issues are fairly well-controlled. She has chronic back pain that she would like to discuss. Generalized pain for as long as she can remember. Does not radiate into her lower or upper extremities. ROSALBA HENRIQUEZ PA-C [address], [place], [address], [facility]. 01/30/2024 18:13:58 OBGyn Episode No OBEpisode recorded.
--- OUTSIDE RECORDS SUMMARY | 2024-04-27 01:25 | XMS_ITS | Encounter Summary ---
Author Organization [facility] [place] [address] Care Team Providers Care Pig Farmer Name Role Phone OrenSanam herring MERARI Primary Care Provider Encounter Details Date Type Department Care Team (Latest Contact Info) Description 10/08/2022 Travel Social History Tobacco Use Types Packs/Day Years Used Date Smoking Tobacco: Never Smokeless Tobacco: Never Comments:Denies vaping Alcohol Use Standard Drinks/Week Comments No 0 (1 standard drink = 0.6 oz pur e alcohol) Sex and Gender Information Value Date Recorded Sex Assigned at Female 05/02/2023 5:23 PM EDT Gender Identity Female 05/02/2023 5:23 PM EDT Sexual Orientation Straight 05/02/2023 5: 23 PM EDT documented as of this encounter Plan of Treatment Upcoming Encounters Date Type Department Care Team (Late st Contact Info) Description 09/17/2024 9:00 AM [place] [address] Mily Garcia MD [facility] [place] [address] 09/17/2024 9:45 AM EST Laboratory Appointment Lab [address] [place] [address] 09/17/2024 11:30 AM EST Office [place] [address] Mily Garcia MD [facility] [place] [address] documented as of this encounter Visit Diagnoses Not on filedocumented in this encounter Care Teams Pig Farmer Relationship Specialty Start Date End Date Sanam Bennett APRN [address] [place] [address] [address] [place] [address] PCP - General Family Medicine 09/06/22 documented as of this encounter
--- OUTSIDE RECORDS SUMMARY | 2024-04-27 01:25 | XMS_ITS | Encounter Summary ---
Author Organization [facility] Address 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 Rebeca Yoon APRN [facility] [place] [address] [facility] [place] [address] Referral ID Status Reason Start Date Expiration Date V isits Requested Visits Authorized [id number] Closed Continuity of Care 12/25/2022 12/25/2023 1 1 Encounter Details Date Type Department Care Team (Late st Contact Info) Description 01/01/2023 2:00 PM EDT TH Visit (TeleHealth) [place] [address] [facility] [place] [address] Autoimmune hepatitis; 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 Below are recommendations discussed today. Please reach outwith a [employer] message if you have any questions or concerns. -Try MyFitnessPal to help track protein and calories. Aim for 100-120 grams protein per day and 2035-4793 calories per day -Have a protein at every meal and snack and add a small meal before bedtime. An Ensure or Boost with >25 g protein and about 300 calories is an easy way to do this. Good sources of protein include: Beef, chicken, turkey Beans, lentils, peanut or almond butter. Peas, edamame, tofu. Quinoa, amaranth 1% milk, cheese, eggs Boost, Ensure shakes Protein powder in a smoothie of your choice. Granola bars with added protein-be mindful of added sugar and salt -Continue to add vegetables and fruits to diet Sophia documented in this encounter Progress Notes * Sophia Waite RD - 01/01/2023 2:00 PM EDT Nutrition Reason for visit: Location of patient: Wt Readings from Last 5 Encounters: 12/25/22 77.2 kg (170 lb 3.2 oz) 10/09/22 81.9 kg (180 lb 9.6 oz) 09/10/22 83 kg (183 lb) 08/27/22 87 kg (191 lb 11.2 oz) 10/06/13 87.1 kg (192 lb) Ht Readings from Last 5 Encounters: 12/25/22 154.9 cm (5' 1) 10/09/22 154.9 cm (5' 1) 09/10/22 154.9 cm (5' 1) 08/27/22 154.9 cm (5' 1) 10/06/13 154.9 cm (5' 1) There is no height or weight on file to calculate BMI. No outpatient medications have been marked as taking for the 01/01/23 encounter (Appointment) with Sophia Waite. Diet Recall: Breakfast Cinnamon Chex w almond milk Snack Lunch Brown rice w peas or edamame, chicken PM Snack Dinner Yam with chicken, green vegetable HS Snack Fluids: water Evaluation: Genoveva has liberated her diet some, from just yams and rice, to adding protein and some vegetables. There was some confusion when she saw an RD at an outside hospital as to what she could eat for DOHERTY and celiac disease. The take away for her was only yams and rice, as the other diets were Weight Watchers or Faith Mariano. Encouraged her to focus on protein at every meal, a variety of vegetables and fruits, and whole gluten-free grains. She has no dentition, but is able to eat all foods. Suggested a small meal between dinner and bedtime. She was somewhat discouraged after initial weight loss, though it was 10%, and she plateaued. Diet Reviewed: Inc protein, Mediterranean diet Recommendations/Plan: -Try MyFitnessPal to help track protein and calories. Aim for 100-120 grams protein per day and 4295-5637 calories per day -Have a protein at every meal and snack and add a small meal before bedtime. An Ensure or Boost with >25 g protein and about 300 calories is an easy way to do this. Good sources of protein include: Beef, chicken, turkey Beans, lentils, peanut or almond butter. Peas, edamame 1% milk, cheese, eggs Boost, Ensure shakes Protein powder in a smoothie of your choice. Granola bars with added protein-be mindful of added sugar and salt -Continue to add vegetables and fruits to diet Time Spent with Patient: 37 minutes documented in this encounter Plan of Treatment Upcoming Encounters Date Type Department Care Team (Late st Contact Info) Description 09/17/2024 9:00 AM [place] [address] Mily Garcia MD [facility] [place] [address] 09/17/2024 9:45 AM EST Laboratory Appointment Lab [address] [place] [address] 09/17/2024 11:30 AM EST Office [place] [address] Mily Garcia MD [facility] [place] [address] Scheduled Referrals Name Type Priority Associated Diagnoses Orde r Schedule Referral to Nutrition Services Outpatient Referral Routine Autoimmune hepatitis 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
--- OUTSIDE RECORDS SUMMARY | 2024-04-27 01:25 | XMS_ITS | Encounter Summary ---
Author Organization [facility] Address [facility] [place] [address] Care Team Providers Care Gold Plater Name Role Phone OrenSanam herring MERARI Primary Care Provider [phone] Encounter Details Date Type Department Care Team (Late st Contact Info) Description 02/05/2023 External Results [place] [address] Rebeca Yoon APRN [facility] [place] [address] Social History Tobacco Use Types Packs/Day Years [...] 09/17/2024 9:00 AM [place] [address] Mily Garcia MD [facility] [place] [address] 09/17/2024 9:45 AM EST Laboratory Appointment Lab [address] [place] [address] 09/17/2024 11:30 AM EST Office [place] [address] Mily Garcia MD [facility] DR GASTROENTEROLOGY [place], [place] [address] documented as of this encounter Procedures Procedure Name Priority Date/Time Associated Diagnosis Comments EXTERNAL LAB CBC CMP THYROID RESULTS PANEL Routine 02/04/2023 documented in this encounter Results * CBC / CMP / Thyroid External Results (02/04/2023) WBC 5.42 RBC 4.46 Hemoglobin 13.0 Hematocrit 39.8 MCV 89.0 Platelets 209 Sodium 141 Potassium 3.6 Chloride 105 CO2 31 BUN 14 Creatinine 0.7 Estimated GFR 94.73 Glucose Lvl 87 Calcium 9.1 Total Protein 8.0 Albumin 3.6 Total Bilirubin 0.3 Alk Phos 85 AST 30 ALT 30 Historical Provider POINT OF CARE MRALENE T ORDERABLES documented in this encounter Visit Diagnoses Not on filedocumented in this encounter Care Teams Gold Plater Relationship Specialty Start Date End Date StivenanMandySanamMERARI solares [address] [place] [address] PCP - General Family Medicine 09/06/22 documented as of this encounter
--- OUTSIDE RECORDS SUMMARY | 2024-04-27 01:25 | XMS_ITS | Encounter Summary ---
Author Organization [facility] Address [facility] [place] [address] Care Team Providers Care Chemist Steroids Name Role Phone OrenSanam herring MERARI Primary Care Provider [phone] Encounter Details Date Type Department Care Team (Late st Contact Info) Description 01/21/2023 External [place] [phone] Rebeca Yoon APRN [facility] [place] [address] Social History Tobacco Use Types Packs/Day Years [...] 09/17/2024 9:00 AM [place] [address] Mily Garcia MD [facility] [place] [address] 09/17/2024 9:45 AM EST Laboratory Appointment Lab [address] [place] [address] 09/17/2024 11:30 AM EST Office [place] [address] Mily Garcia MD [facility] DR GASTROENTEROLOGY [place], [place] [phone] documented as of this encounter Procedures Procedure Name Priority Date/Time Associated Diagnosis Comments EXTERNAL LAB CBC CMP THYROID RESULTS PANEL Routine 01/21/2023 documented in this encounter Results * CBC / CMP / Thyroid External Results (01/21/2023) Sodium 138 Potassium 3.4 Chloride 103 CO2 31 BUN 13 Creatinine 0.8 Estimated GFR 80.71 Glucose Lvl 123 Calcium 9.2 Total Protein 8.2 Albumin 3.7 Total Bilirubin 0.5 Alk Phos 89 AST 36 ALT 33 Historical Provider POINT OF CARE MARLENE T ORDERABLES documented in this encounter Visit Diagnoses Not on filedocumented in this encounter Care Teams Chemist Steroids Relationship Specialty Start Date End Date Sanam Bennett APRN [address] [place] [address] PCP - General Family Medicine 09/06/22 documented as of this encounter
--- OUTSIDE RECORDS SUMMARY | 2024-04-27 01:25 | XMS_ITS | Encounter Summary ---
Author Organization [place] [address] Care Team Providers Care Manager Of Sales Name Role Phone OrenSanam herring MERARI Primary Care Provider Encounter Details Date Type Department Care Team (Late st Contact Info) Description 01/16/2023 Orders [place] [phone] Rebeca Yoon APRN [facility] [place] [address] AIHA (autoimmune hemolytic anemia); Autoimmune hepatitis Social History Tobacco Use Types Packs/Day Years [...] 09/17/2024 9:00 AM EST Appointment [place] [address] Mily Garcia MD [facility] [place] [address] 09/17/2024 9:45 AM EST Laboratory Appointment Lab [address] [place] [address] 09/17/2024 11:30 AM EST Office Visit [place] [address] Mily Garcia MD [facility] [place] [address] Scheduled Orders Name Type Priority Associated Diagnoses Orde r Schedule Comprehensive metabolic panel (non-fasting) Lab Routine Autoimmune hepatitis Expected: 01/16/2023 (Approximate), Expires: 07/18/2024 documented as of this encounter Visit Diagnoses Diagnosis AIHA (autoimmune hemolytic anemia) Autoimmune hemolytic anemias Autoimmune hepatitis documented in this encounter Care Teams Manager Of Sales Relationship Specialty Start Date End Date Sanam Bennett APRN [address] [place] [address] [address] [place] [address] PCP - General Family Medicine 09/06/22 documented as of this encounter
--- OUTSIDE RECORDS SUMMARY | 2024-04-27 01:25 | XMS_ITS | Encounter Summary ---
Author Organization [facility] [place] [address] Care Team Providers Care Candy Supervisor Name Role Phone Sanam Bennett MERARI Primary Care Provider Encounter Details Date Type Department Care Team (Latest Contact Info) Description 03/24/2023 Travel Social History Tobacco Use Types Packs/Day [...] 09/17/2024 9:00 AM EST [place] [phone] Mily Garcia MD [facility] [place] [address] 09/17/2024 9:45 AM EST Laboratory Appointment Lab [address] [place] [address] 09/17/2024 11:30 AM EST Office [place] [address] Mily Garcia MD [facility] [place] [address] documented as of this encounter Visit Diagnoses Not on filedocumented in this encounter Care Teams Candy Supervisor Relationship Specialty Start Date End Date Sanam Bennett APRN [address] [place] [address] [address] [place] [address] PCP - General Family Medicine 09/06/22 documented as of this encounter
--- OUTSIDE RECORDS SUMMARY | 2024-04-27 01:25 | XMS_ITS | Encounter Summary ---
Author Organization [facility] [place] [address] Care Team Providers Care Precision Lens Generator Name Role Phone Sanam Bennett MERARI Primary Care Provider [phone] Encounter Details Date Type Department Care Team (Latest Contact Info) Description 02/07/2024 Travel Social History Tobacco Use Types Packs/Day [...] 09/17/2024 9:00 AM EST [place] [phone] Mily Garcia MD [facility] [place] [address] 09/17/2024 9:45 AM EST Laboratory Appointment Lab [address] [place] [phone] 09/17/2024 11:30 AM EST Office [place] [address] Mily Garcia MD [facility] [place] [address] documented as of this encounter Visit Diagnoses Not on filedocumented in this encounter Care Teams Precision Lens Generator Relationship Specialty Start Date End Date Sanam Bennett APRN [address] [place] [address] [address] [place] [address] PCP - General Family Medicine 09/06/22 documented as of this encounter
--- OUTSIDE RECORDS SUMMARY | 2024-04-27 01:25 | XMS_ITS | Encounter Summary ---
Author Organization [facility] [place] [address] Care Team Providers Care Wafer Substrate Tester Name Role Phone Sanam Bennett MERARI Primary Care Provider [phone] Reason for Referral * Consultation (Routine) - Denied Specialty Diagnoses / Procedures Referred By Gabrielle graves Referred To Contact Endocrinology Diagnoses Hepatic cirrhosis, unspecified hepatic cirrhosis type, unspecified whether ascites present Mily Garcia MD [facility] [place] [address] [facility] Endocrinology [address] [place] [address] Referral ID Status Reason Start Date Expiration Date V isits Requested Visits Authorized [id number] Denied Continuity of Care 10/09/2022 10/09/2023 1 0 Encounter Details Date Type Department Care Team (Late st Contact Info) Description 10/09/2022 11:30 AM EST Office [place] [address] Mily Garcia MD [facility] [place] [address] Hepatic cirrhosis, unspecified hepatic cirrhosis type, unspecified whether ascites present Social History Tobacco Use Types Packs/Day Years [...] PM EDT documented as of this encounter Last Filed Vital Signs Vital Sign Reading Time Taken Comments Blood Pressure 135/84 10/09/2022 11:17 AM EST Pulse 74 10/09/2022 11:17 AM EST Temperature - - Respiratory Rate - - Oxygen Saturation - - Inhaled Oxygen Concentration - - Weight 81.9 kg (180 lb 9.6 oz) 10/09/2022 11:17 AM EST Height 154.9 cm (5' 1) 10/09/2022 11:17 AM EST Body Mass Index 34.12 10/09/2022 11:17 AM EST documented in this encounter Patient Instructions * Patient Instructions* Mily Garcia MD - 10/09/2022 11:30 AM EST - Prednisone 40 mg and azathioprine 50 mg daily - Labs weekly for the next month - Follow up in November with labs and ultrasound documented in this encounter Progress Notes * Mily Garcia MD - 10/09/2022 11:30 AM EST Gastroenterology and Hepatology Follow Up Note Patient: Genoveva Whiting : 1955 Provider: Mily Garcia MD Problem List: #Cirrhosis, secondary to AIH/DOHERTY - Liver biopsy 08/2022: The biopsy shows periportal/septal chronic inflammayion with plasma cell admixture. ??Foci of lobular chronic inflammation consisting predominantly of lymphocytes and ??histiocytes are also noted. Zrre-mv-dlvsesoa steatosis is present. Trichrome stain ??highlights advanced fibrosis with possible cirrhosis. ?Iron stain is negative. ??The ??findings are consistent with the pattern of chronic active hepatitis. ? Differential ??diagnosis includes ??chronic drug injury, autoimmune hepatitis and celiac disease, ??however the findings appear to be too advanced for celiac disease-associated ??hepatitis. - Reviewed at liver path 10/04/2022: F3-4 Interval History: She is here today to review her liver biopsy. She has been lightheaded and fatigued, but has been trying to follow a very restrictive diet (she reports finding in on the Internet for DOHERTY). Current Outpatient Medications Medication Sig Dispense Refill ??? omeprazole (PriLOSEC) 40 mg Capsule, Delayed Release(E.C.) Take 40 mg by mouth daily. ??? doxepin (SINEquan) 10 mg Capsule ??? FeroSuL 325 mg (65 mg iron) Tablet ??? rOPINIRole (Requip) 1 mg Tablet ??? DULoxetine DR (Cymbalta) 60 mg Capsule, Delayed Release(E.C.) ??? ascorbic acid, vitamin C, (VITAMIN C) 500 mg Tablet, Chewable Take by mouth. ??? pravastatin (PRAVACHOL) 40 mg tablet Take 40 mg by mouth daily. ??? DULOXETINE HCL (CYMBALTA ORAL) Take 60 mg by mouth daily. ??? clobetasol (TEMOVATE) 0.05 % ointment Apply topically as needed. ??? esomeprazole (NEXIUM) 40 mg capsule Take 1 capsule by mouth 2 times daily. (Patient not taking:Reported on 10/09/2022) 180 capsule 3 ??? LORazepam (ATIVAN) 1 mg tablet Take 1 mg by mouth nightly. ??? AMITRIPTYLINE HCL (AMITRIPTYLINE ORAL) Take 75 mg by mouth daily. No current facility-administered medications for this visit. Vitals: 10/09/22 1117 BP: 135/84 BP Location ([facility]): Left arm Patient Position: Sitting BP Cuff Sizes: Adult (25-34 cm) Pulse: 74 Weight: 81.9 kg (180 lb 9.6 oz) Height: 154.9 cm (5' 1) Body mass index is 34.12 kg/m??. Exam: Looks well Assessment and Plan: #Cirrhosis, secondary to AIH/DOHERTY Reviewed that her biopsy showed F3-4 fibrosis with feature of AIH and DOHERTY. Recommend starting therapy for AIH (Prednisone 40 mg and azathioprine 50 mg daily). Follow up labs in 1 week with plan of weekly monitoring for the first month of therapy, followed by monitoring every 2 weeks. Discussed symptoms of hypersensitivity to AZA and to stop AZA if she has them. Follow up visit in 11/2022. #At risk for HCC Reviewed recommendation of imaging every 6 months for HCC screening. Next due in 11/2022. Ultrasoundhas been ordered. #At risk for esophageal varices No varices on EUS in 08/2022, next EGD in 08/2024. #Diet Reviewed diet goals (protein 100-120 g per day and calories 0538-6962 kCal per day). Will set up visit with dock pumper. #Celiac disease Normal small bowel biopsy 08/2022. Mily Garcia MD Section of Gastroenterology & Hepatology [address] [place] [id number] Time spent reviewing records prior to this encounter: 5 minutes Time spent during encounter with patient including counselin minutes Time spent documenting encounter after office visit: 5 minutes Approximate total time devoted to this single encounter on the day of the encounter: 30 minutes Cc: Sanam Bennett APRN documented in this encounter Plan of Treatment Upcoming Encounters Date Type Department Care Team (Late st Contact Info) Description 09/17/2024 9:00 AM [place] [phone] Mily Garcia MD [facility] [place] [address] 09/17/2024 9:45 AM EST Laboratory Appointment Lab [address] [place] [phone] 09/17/2024 11:30 AM EST Office [place] [phone] Mily Garcia MD [facility] [place] [address] Scheduled Referrals Name Type Priority Associated Diagnoses Orde r Schedule Referral to Nutrition Services Outpatient Referral Routine Hepatic cirrhosis, unspecified hepatic cirrhosis type, unspecified whether ascites present Ordered: 10/09/2022 documented as of this encounter Results * AFP tumor marker (12/25/2022 8:45 AM EDT) Pathologist [facility] AFP 4.1 <=8.3 ng/mL [facility] Comment: This result was generated using a Radha Anshu immunoassay. ??Results obtained from other methods or manufacturers cannot be used interchangeably with this method. Blood 12/25/2022 8:45 AM EDT 12/25/2022 9:18 AM EDT Narrative Resulting Agency Comment Spec In Lab Mily Garcia MD CHEMISTRY ORDERABLES Performing Organization Address [facility] Co de Phone Number [facility] [place] [address] * (ABNORMAL) Prothrombin Time (12/25/2022 8:45 AM EDT) [facility] PT 13.1(H) 9.4 - 12.5 sec [facility] INR 1.1 [facility] Comment: An INR <2.0 indicates adequate procoagulant activity for hemostasis in most patients without underlying bleeding disorders, though the INR may not adequately reflect hemostatic capacity in patients with liver disease and synthetic impairment. The recommended target INR range for therapeutic anticoagulation is 2.0 ? 3.0 for most applications, though lower and higher ranges may be appropriate depending on clinical circumstances. Blood 12/25/2022 8:45 AM EDT 12/25/2022 9:18 AM EDT Narrative Resulting Agency Comment Spec In Lab Mily Garcia MD HEMATOLOGY ORDERABLE S Performing Organization Address City/[facility]/ZIP Co de Phone Number [facility] [place] [address] * (ABNORMAL) Comprehensive metabolic panel (non-fasting) (12/25/2022 8:45 AM EDT) [facility] Glucose Lvl 98 65 - 199 mg/dL [facility] Comment:Diabetes: >=200 mg/d L plus symptoms BUN 10 8 - 18 mg/dL [facility] Creatinine 0.59(L) 0.70 - 1.20 mg/dL [facility] Sodium 142 135 - 145 mmol/L [facility] Potassium 4.2 3.5 - 5.0 mmol/L [facility] Comment: Please note: ??Patients with WBC >100,000 may have falsely elevated Potassium levels. ??For accurate Potassium quantification in these patients send serum separator tube (gold top) for subsequent determinations. ??Contact the Clinical Chemistry Laboratory if there are any questions. Chloride 104 98 - 107 mmol/L [facility] CO2 29 22 - 31 mmol/L [facility] Anion Gap 9 5 - 15 mmol/L [facility] Calcium 9.0 8.5 - 10.5 mg/dL [facility] Total Protein 7.7 6.1 - 8.0 g/dL [facility] Albumin 4.3 3.2 - 5.2 g/dL [facility] AST 37(H) 0 - 30 unit/L [facility] ALT 25 0 - 30 unit/L [facility] Alk Phos 89 35 - 105 unit/L [facility] Total Bilirubin 0.4 0.2 - 1.3 mg/dL [facility] Estimated GFR 99 >=60 mL/min/1. 73 m?? [facility] Comment: This patient's estimated GFR was [...] and symptoms in addition to eGFR. Blood 12/25/2022 8:45 AM EDT 12/25/2022 9:18 AM EDT Narrative Resulting Agency Comment Spec In Lab Mily Garcia MD CHEMISTRY ORDERABLES [facility] [place] [address] * US Abdomen Limited Hepatology Protocol (12/25/2022 8:06 AM EDT) Anatomical Region Laterality Modality Abdomen Ultrasound 12/25/2022 8:08 AM EDT Impressions 12/25/2022 9:01 AM EDT 1. ??Normal size and echogenicity of the liver. No focal lesions. 2. ??Main portal vein is patent with hepatopetal flow. 3. ??No ascites. 4. ??Gallbladder is surgically absent. No biliary dilatation. I have personally reviewed the image(s) and the resident's interpretation and agree with the findings, Que Tee MD at 12/25/2022 8:54 AM Thank you for letting us participate in the care of this patient. If you are a health care provider and have any questions regarding this report, please contact the number above. For patients who have questions, please contact the health daycare assistant that requested your imaging first. ?Que Tee, Staff Physician Electronically Signed Final Report ?? 12/25/2022 09:01 am Narrative 12/25/2022 9:01 AM EDT Abdominal ? (Signed Final 12/25/2022 09:01 am) PATIENT INFO: ID #: ? [id number] ?: ??[birth year] (67 yrs)(F) Name: ? GENOVEVA Zaragoza ?Visit Date: 12/25/2022 08:08 am ? KISHA PERFORMED BY: Attending: ?Randal GO, Que Mathis Resident: ? Francisco Javier GO, Ilda Perrin Performed By: ? Baljit Olivas RDMS Referred By: ?MILY GARCIA Location: ? [place] SERVICE(S) PROVIDED: [facility] - Hepatology Protocol - Abdominal ?05129 Limited Survey Single Organ or Quadrant - [id number] INDICATIONS: cirrhosis, HCC screening COMPARISON: US: Abdomen Limited OUTSIDE 05/31/22 ------ LIVER: ------ Right Lobe Length: ?? 14.3 ?? cm Echogenicity/Echotexture: ?? Normal Portal Veins: ?Hepatopetal Comment: ?No focal lesion seen. GALLBLADDER: Comment: ?Surgically absent. BILIARY TRACT: Intrahepatic Ducts: ?? Normal Extrahepatic Ducts: ?? Normal Common Duct Size: ? 6.2 ? mm FLUID COLLECTIONS: Ascites not present on 4 quadrant evaluation. Procedure Note Que Tee MD - 12/25/2022 Abdominal (Signed Final 12/25/2022 09:01 am) PATIENT INFO: ID #: [id number] : [birth year] (67 yrs)(F) Name: GENOVEVA Zaragoza Visit Date: 12/25/2022 08:08 am WHITING PERFORMED BY: Attending: Que Tee MD Resident: Ilda Mcintyre MD Performed By: Baljit Olivas RDMS Referred By: MILY GARCIA Location: [place] SERVICE(S) PROVIDED: [facility] - Hepatology Protocol - Abdominal 00249 Limited Survey Single Organ or Quadrant - [id number] INDICATIONS: cirrhosis, HCC screening COMPARISON: US: Abdomen Limited OUTSIDE 05/31/22 ------ LIVER: ------ Right Lobe Length: 14.3 cm Echogenicity/Echotexture: Normal Portal Veins: Hepatopetal Comment: No focal lesion seen. GALLBLADDER: Comment: Surgically absent. BILIARY TRACT: Intrahepatic Ducts: Normal Extrahepatic Ducts: Normal Common Duct Size: 6.2 mm FLUID COLLECTIONS: Ascites not present on 4 quadrant evaluation. IMPRESSION 1. Normal size and echogenicity of the liver. No focal lesions. 2. Main portal vein is patent with hepatopetal flow. 3. No ascites. 4. Gallbladder is surgically absent. No biliary dilatation. I have personally reviewed the image(s) and the resident's interpretation and agree with the findings, Que Tee MD at 12/25/2022 8:54 AM Thank you for letting us participate in the care of this patient. If you are a health care provider and have any questions regarding this report, please contact the number above. For patients who have questions, please contact the health daycare assistant that requested your imaging first. Que Tee, Staff Physician Electronically Signed Final Report 12/25/2022 09:01 am Mily Garcia MD IMG US GEN ORDERABLE S documented in this encounter Visit Diagnoses Diagnosis Hepatic cirrhosis, unspecified hepatic cirrhosis type, unspecified whether ascites present Hepatic cirrhosis, unspecified hepatic cirrhosis type, unspecified whether ascites present documented in this encounter Care Teams Wafer Substrate Tester Relationship Specialty Start Date End Date Sanam Bennett APRN [address] [place] [address] PCP - General Family Medicine 09/06/22 documented as of this encounter
--- OUTSIDE RECORDS SUMMARY | 2024-04-27 01:25 | XMS_ITS | Encounter Summary ---
Author Organization [facility] Address [facility] [place] [address] Care Team Providers Care Freelance Copywriter Name Role Phone Sanam Bennett APRN Primary Care Provider [phone] Encounter Details Date Type Department Care Team (Late st Contact Info) Description 11/27/2022 External Results [place] [phone] Mily Garcia MD [facility] [place] [address] Social History Tobacco Use Types Packs/Day Years [...] 09/17/2024 9:00 AM EST [place] [phone] Mily Garcia MD [facility] [place] [address] 09/17/2024 9:45 AM EST Laboratory Appointment Lab [address] [place] [address] 09/17/2024 11:30 AM EST Office [place] [phone] Mily Garcia MD [facility] [place] [address] documented as of this encounter Procedures Procedure Name Priority Date/Time Associated Diagnosis Comments EXTERNAL LAB CBC CMP THYROID RESULTS PANEL Routine 11/26/2022 documented in this encounter Results * CBC / CMP / Thyroid External Results (11/26/2022) Sodium 141 Potassium 4.2 Chloride 104 CO2 33 BUN 8 Creatinine 0.7 Estimated GFR 94.73 Glucose Lvl 122 Calcium 8.9 Total Protein 7.3 Albumin 3.3 Total Bilirubin 0.3 Alk Phos 141 AST 33 ALT 30 Historical Provider POINT OF CARE MARLENE T ORDERABLES documented in this encounter Visit Diagnoses Not on filedocumented in this encounter Care Teams Freelance Copywriter Relationship Specialty Start Date End Date Sanam BennettMERARI [address] [place] [address] PCP - General Family Medicine 09/06/22 documented as of this encounter
--- OUTSIDE RECORDS SUMMARY | 2024-04-27 01:25 | XMS_ITS | Encounter Summary ---
Author Organization [facility] Address [facility] [place] [address] Care Team Providers Care Automotive Mechanical Engineer Name Role Phone Sanam Bennett MERARI Primary Care Provider Encounter Details Date Type Department Care Team (Latest Contact Info) Description 12/25/2022 9:00 AM EDT Laboratory Appointment Lab [address] [place] [phone] Hepatic cirrhosis, unspecified hepatic cirrhosis type, unspecified [...] 09/17/2024 9:00 AM EST [place]ment [place] [phone] Mily Garcia MD [facility] [place] [address] 09/17/2024 9:45 AM EST Laboratory Appointment Lab [address] [place] [address] 09/17/2024 11:30 AM EST Office [place] [phone] Mily Garcia MD [facility] [place] [address] documented as of this encounter Procedures Procedure Name Priority Date/Time Associated Diagnosis Comments HEMOGRAM Routine 12/25/2022 8:45 AM EDT Hepatic cirrhosis, unspecified hepatic cirrhosis type, unspecified whether ascites present DIFFERENTIAL, AUTOMATED Routine 12/25/2022 8:45 AM EDT Hepatic cirrhosis, unspecified hepatic cirrhosis type, unspecified whether ascites present HC VENIPUNCTURE Routine 12/25/2022 8:45 AM EDT Hepatic cirrhosis, unspecified hepatic cirrhosis type, unspecified whether ascites present HC PROTHROMBIN TIME Routine 12/25/2022 8 :45 AM EDT Hepatic cirrhosis, unspecified hepatic cirrhosis type, unspecified whether ascites present HC CBC,PLT & AUTO DIFF Routine 8:45 AM EDT Hepatic cirrhosis, unspecified hepatic cirrhosis type, unspecified whether ascites present COMPREHENSIVE METABOLIC PANEL (NON-FASTING) Routine 12/25/2022 8:45 AM EDT Hepatic cirrhosis, unspecified hepatic cirrhosis type, unspecified whether ascites present documented in this encounter Results * Differential, Automated (12/25/2022 8:45 AM EDT) Neutrophils % 46.8 % [facility] Neutr Abs (ANC) 3.02 1.70 - 6.10 x10(3)/[facility] Lymphocytes % 41.0 % [facility] Lymphocytes Abs 2.6 0.9 - 3.2 x10(3)/[facility] Monocytes % 8.8 % [facility] Monocyte Abs 0.6 0.3 - 0.9 x10(3)/[facility] Eosinophils % 2.0 % [facility] Eosinophils Abs 0.1 0.0 - 0.4 x10(3)/[facility] Basophils % 1.1 % [facility] Basophils Abs 0.1 0.0 - 0.1 x10(3)/[facility] Immature Gran % 0.30 % [facility] Comment: Immature granulocytes(IG's)percentage and absolute count will include metamyelocytes, myelocytes, and promyelocytes. Blood smears from CBCs yielding IG's will be scanned manually for concordance. If this scan disagrees with the automated IG or if promyelocytes are noted, a manual differential will be performed. Yuliet Gran Abs 0.02 0.00 - 0.04 x10(3)/[facility] Blood 12/25/2022 8:45 AM EDT 12/25/2022 9:18 AM EDT Narrative Resulting Agency Comment Spec In Lab Mily Garcia MD HEMATOLOGY ORDERABLE S [facility] [place] [address] * Hemogram (12/25/2022 8:45 AM EDT) WBC 6.5 4.0 - 9.5 x10(3)/[facility] RBC 4.39 4.00 - 5.21 x10(6)/[facility] Hemoglobin 12.7 11.7 - 15.5 g/dL [facility] Hematocrit 38.2 35.7 - 45.8 % [facility] MCV 87.0 82.6 - 94.4 fL [facility] MCH 28.9 27.1 - 32.0 pg [facility] MCHC 33.2 31.7 - 35.0 g/dL [facility] Platelets 210 145 - 357 x10(3)/[facility] RDWSD 43.6 37.0 - 46.0 fL [facility] RDWCV 13.5 11.5 - 14.1 % [facility] MPV 11.4 7.6 - 12.9 fL [facility] nRBC % Auto 0.0 % [facility] nRBC Abs Auto 0.000 0.000 - 0.000 x10(3)/[facility] Blood 12/25/2022 8:45 AM EDT 12/25/2022 9:18 AM EDT Narrative Resulting Agency Comment Spec In Lab Mily Garcia MD HEMATOLOGY ORDERABLE S [facility] [place] [address] * (ABNORMAL) Comprehensive metabolic panel (non-fasting) (12/25/2022 8:45 AM EDT) Glucose Lvl 98 65 - 199 mg/dL [facility] Comment:Diabetes: >=200 mg/d L plus symptoms BUN 10 8 - 18 mg/dL [facility] Creatinine 0.59(L) 0.70 - 1.20 mg/dL [facility] Sodium 142 135 - 145 mmol/L [facility] Potassium 4.2 3.5 - 5.0 mmol/L [facility] Comment: Please note: ??Patients with WBC >100,000 may have falsely elevated Potassium levels. ??For accurate Potassium quantification in these patients send serum separator tube (gold top) for subsequent determinations. ??Contact the Clinical Chemistry Laboratory if there are any questions. Chloride 104 98 - 107 mmol/L [facility] CO2 29 22 - 31 mmol/L [facility] Anion Gap 9 5 - 15 mmol/L [facility] Calcium 9.0 8.5 - 10.5 mg/dL [facility] Total Protein 7.7 6.1 - 8.0 g/dL [facility] Albumin 4.3 3.2 - 5.2 g/dL [facility] AST 37(H) 0 - 30 unit/L [facility] ALT 25 0 - 30 unit/L [facility] Alk Phos 89 35 - 105 unit/L [facility] Total Bilirubin 0.4 0.2 - 1.3 mg/dL [facility] Estimated GFR 99 >=60 mL/min/1. 73 m?? [facility] Comment: This patient's estimated GFR [...] In Lab Mily Garcia MD CHEMISTRY ORDERABLES [facility] [place] [address] * (ABNORMAL) Prothrombin Time (12/25/2022 8:45 AM EDT) PT 13.1(H) 9.4 - 12.5 sec [facility] INR 1.1 [facility] [...] MD HEMATOLOGY ORDERABLE S Performing Organization Address City/[facility]/ZIP Co de Phone Number [facility] [place] [address] * AFP tumor marker (12/25/2022 8:45 AM EDT) AFP 4.1 <=8.3 ng/mL [facility] Comment: This result was generated using a Radha Anshu immunoassay. ??Results obtained from other methods or manufacturers cannot be used interchangeably with this method. Blood 12/25/2022 8:45 AM EDT 12/25/2022 9:18 AM EDT Narrative Resulting Agency Comment Spec In Lab Mily Garcia MD CHEMISTRY ORDERABLES Performing Organization Address City/[facility]/ZIP Co de Phone Number [facility] [place] [address] documented in this encounter Visit Diagnoses Diagnosis Hepatic cirrhosis, unspecified hepatic cirrhosis type, unspecified whether ascites present documented in this encounter Care Teams Automotive Mechanical Engineer Relationship Specialty Start Date End Date Sanam Bennett APRN [address] [place] [address] PCP - General Family Medicine 09/06/22 documented as of this encounter
--- OUTSIDE RECORDS SUMMARY | 2024-04-27 01:25 | XMS_ITS | Encounter Summary ---
Author Organization [facility] Address [facility] [place] [address] Care Team Providers Care Label Pinker Name Role Phone Sanam Bennett APRN Primary Care Provider [phone] Reason for Visit * Reason Comments Skin Check * Consultation (Routine) - Closed Specialty Diagnoses / Procedures Referred By Gabrielle graves Referred To Contact Dermatology Diagnoses Hx of basal cell carcinoma Sanam Bennett APRN [address] [place] [address] [facility] Dermatology [address] [place] [address] Referral ID Status Reason Start Date Expiration Date V isits Requested Visits Authorized [id number] Closed Consult, Test & Treat PCP Updated and/or Approved 02/06/2023 02/06/2024 6 6 Encounter Details Date Type Department Care Team (Late st Contact Info) Description 05/02/2023 3:40 PM EDT Office Visit Dermatology at [facility] [address] [place] [address] Lino Rodriguez MD [facility] DR ZENY [place] [address] Actinic keratoses; History of nonmelanoma skin cancer; Xerosis of skin; Lip licking dermatitis Social History Tobacco Use Types Packs/Day Years [...] PM EDT documented as of this encounter Progress Notes * Lino Rodriguez MD - 05/02/2023 3:40 PM EDT Images from the original note were not included. DEPARTMENT OF DERMATOLOGY Medical Dermatology Clinic Note Provider: Lino Rodriguez MD Patient's preferred name Genoveva Preferred contact method for results [x]Phone []myD-H []Letter Detailed phone message OK? Y Are there any other people with whom we may discuss your care? Y Past Medical History Date, location, treatment Melanoma N Dysplastic nevi N SCC N BCC [phone] (pt reported) Right forehead, right tip of nose, left shoulder, right lateral eyebrow, previously treated in [place]. [id number] right medial cheek, July 2009, per [facility]. AKs N UV Exposure & Protection + history of blistering sunburn Other relevant past medical history 2020 dx DOHERTY, stage 4 (cirrhosis of liver) Family History Details Melanoma N NMSC N Other relevant family history N Social History Occupation: retired Hobbies: gardening Other: partner, 1 child Pre-Procedure Questions Details Allergy to lidocaine, epinephrine, Dermabond, chlorhexidine, or adhesives N Bleeding disorder or blood thinners N Implanted devices (Pacemaker, defibrillator, deep brain stimulator, cochlear implant) N History of Present Illness: Genoveva Whiting is a 68 y.o. Patient is referred to the clinic at the request of Sanam Bennett for full skin exam. -itchy back -lesions on the face for months Review of Systems: General: Feeling well. Skin: No other skin concerns. Medications: Reviewed in eD-H Allergies: Reviewed in eD-H Skin Examination: Waist-up skin examination: Patient was asked to disrobe to the level of their comfort. Patient elected to remain clothed below the waist. Examination of the scalp, hair, face, ears, neck, back, chest, abdomen, and upper extremities was normal with the exception of the findings below. Assessment/Plan #. Actinic Keratosis - Scaly irregular pink papules located on right left nasal sidewall x1, left nasal sidewall x1 - Discussed etiology and treatment options with patient - Joint decision to pursue LN2 x 2 to lesion. Advised to return if lesion(s) do not resolve. Procedure Note: Procedure: Destruction of lesions with cryotherapy. Number: 3 Location: as above Discussed procedure and expectations including risks (including risk of hypopigmentation) and benefits. Verbal consent obtained. Frozen with LN2, 15-30 second thaw time, TWICE. There were no complications; the patient tolerated the procedure well. Post-procedure expectations and wound care were reviewed. #. Lip Dermatitis- faint red patch on lower cutaneous lip - Ddx: allergic vs irritant contact dermatitis. Etiology unclear - given non-specific symptoms and appearance recommend trial of short course of topical steroids for flares - Start Rx: Hydrocortisone 2.5% Ointment: Apply twice daily to the affected areas on the lips for 14/ days, then take one week off, and repeat as needed. #. Pruritus - scattered excoriations on trunk and extremities. Likely related to cirrhosis - Recommended applying a bland moisturizer (such as CeraVe cream) daily immediately after bathing. - Recommended AmLactin Rapid Relief lotion, CeraVe Anti-Itch or Sarna Anti-itch lotion #. History of Non-Melanoma Skin Cancer - Well healed scars as per history above. - NER; will continue to clinically monitor Other: Sun protection discussed (protective clothing and SPF30+ broad-spectrum sunscreen) OTC skin products discussed RTC: 1 year for FSE []Note routed to pocket secretary assembler []Recall placed in scheduling system []Appointment scheduled at checkout Scribe attestation: ОЛЕГ Masterson has performed the documentation for this encounter inthe presence of and acting as a scribe for Lino Rodriguez MD. I performed the above scribed service and agree with the accuracy of the documentation in this encounter. Reviewed and signed by: Lino Rodriguez MD Dermatology [facility] Patient seen and evaluated with staff steward/stewardess wine: Mikaela Freeman MD Department of Dermatology [facility] * Mikaela Freeman MD - 05/02/2023 3:40 PM EDT I directly supervised the resident during this office visit. The resident physician presented the history and physical exam to me. I then saw and examined this patient with the resident. We reviewed the history and pertinent details and I confirmed the physical exam findings. I agree with the details of the history and physical exam as documented in the resident physician's note. Mikaela Freeman MD ([place]), FAAD Staff Physician [facility] Dermatology documented in this encounter Miscellaneous Notes * Addendum Note - Mikaela Freeman MD - 05/02/2023 3:40 PM EDTAddended by: MIKAELA FREEMAN on: 05/03/2023 09:37 AM Modules accepted: Level of Service documented in this encounter Plan of Treatment Upcoming Encounters Date Type Department Care Team (Late st Contact Info) Description 09/17/2024 9:00 AM EST Appointment [place] [phone] Mily Garcia MD [facility] [place] [address] 09/17/2024 9:45 AM EST Laboratory Appointment Lab [address] [place] [phone] 09/17/2024 11:30 AM EST Office Visit [place] [phone] Mily Garcia MD [facility] [place] [address] documented as of this encounter Visit Diagnoses Diagnosis Actinic keratoses Actinic keratosis History of nonmelanoma skin cancer Personal history of other malignant neoplasm of skin Xerosis of skin Other specified disease of sebaceous glands Lip licking dermatitis Contact dermatitis and other eczema, due to unspecified cause documented in this encounter Care Teams Label Pinker Relationship Specialty Start Date End Date Sanam Bennett APRN [address] [place] [address] PCP - General Family Medicine 09/06/22 documented as of this encounter
--- OUTSIDE RECORDS SUMMARY | 2024-04-27 01:25 | XMS_ITS | Encounter Summary ---
Author Organization [facility] [place] [address] Care Team Providers Care Turntable Man Name Role Phone OrenSanam herring MERARI Primary Care Provider Encounter Details Date Type Department Care Team (Latest Contact Info) Description 12/25/2022 Travel Social History Tobacco Use Types Packs/Day [...] 09/17/2024 9:00 AM EST Appointment [place] [phone] Mily Garcia MD [facility] [place] [address] 09/17/2024 9:45 AM EST Laboratory Appointment Lab [address] [place] [phone] 09/17/2024 11:30 AM EST Office Visit [place] [address] Mily Garcia MD [facility] [place] [address] documented as of this encounter Visit Diagnoses Not on filedocumented in this encounter Care Teams Turntable Man Relationship Specialty Start Date End Date Sanam Bennett APRN [address] [place] [address] [address] [place] [address] PCP - General Family Medicine 09/06/22 documented as of this encounter
--- OUTSIDE RECORDS SUMMARY | 2024-04-27 01:25 | XMS_ITS | Encounter Summary ---
Author Organization [facility] Address [facility] [place] [address] Care Team Providers Care Payroll And Benefits Coordinator Name Role Phone Sanam Bennett APRN Primary Care Provider Reason for Visit * Reason Onset Date Comments Medication Refill 09/03/2023 Encounter Details Date Type Department Care Team (Late st Contact Info) Description 09/03/2023 Refill [place] [phone] Mily Garcia MD [facility] [place] [address] Autoimmune hepatitis Social History Tobacco Use Types [...] 09/17/2024 9:00 AM EST [place] [phone] Mily Garcia MD [facility] [place] [address] 09/17/2024 9:45 AM EST Laboratory Appointment Lab [address] [place] [address] 09/17/2024 11:30 AM EST Office [place] [address] Mily Garcia MD [facility] [place] [address] documented as of this encounter Visit Diagnoses Diagnosis Autoimmune hepatitis documented in this encounter Care Teams Payroll And Benefits Coordinator Relationship Specialty Start Date End Date Sanam Bennett APRN [address] [place] [address] PCP - General Family Medicine 09/06/22 documented as of this encounter
--- OUTSIDE RECORDS SUMMARY | 2024-04-27 01:25 | XMS_ITS | Encounter Summary ---
Author Organization [facility] Address [facility] [place] [address] Care Team Providers Care Technical Applications Specialist Name Role Phone OrenSanam herring MERARI Primary Care Provider [phone] Encounter Details Date Type Department Care Team (Latest Contact Info) Description 02/07/2024 7:37 AM EDT - 02/07/2024 11:59 PM EDT Hospital En[place] [address] Mily Garcia MD [facility] [place] [address] Hepatic cirrhosis, unspecified hepatic cirrhosis type, unspecified whether ascites present; Autoimmune hepatitis Discharge Disposition: Home Social History Tobacco Use Types Packs/Day Years [...] PM EDT documented as of this encounter Medications at Time of Discharge Medication Sig Dispensed Refills Start Date End Date azaTHIOprine (Imuran) 50 mg tabletIndications:Autoi mmune hepatitis Take 1 tablet by mouth daily. 90 tablet 1 09/03/2023 MILK THISTLE ORAL Take 1,000 mg by mouth daily. multivitamin (THERAGRAN) Tablet Take 1 tablet by mouth daily. Centrum Silver omeprazole (PriLOSEC) 40 mg Capsule, Delayed Release(E.C.) Take 40 mg by mouth daily. 07/02/2022 doxepin (SINEquan) 10 mg Capsule 09/05/2022 rOPINIRole (Requip) 1 mg Tablet Take 2 mg by mouth nightly. 09/05/[address] (Cymbalta) 60 mg Capsule, Delayed Release(E.C.) 09/05/2022 pravastatin (PRAVACHOL) 40 mg tablet Take 40 mg by mouth daily. clobetasol (TEMOVATE) 0.05 % ointment Apply topically as needed. documented as of this encounter Plan of Treatment Upcoming Encounters Date Type Department Care Team (Late st Contact Info) Description 09/17/2024 9:00 AM EST Appointment [place] [address] Mily Garcia MD [facility] [place] [address] 09/17/2024 9:45 AM EST Laboratory Appointment Lab [address] [place] [phone] 09/17/2024 11:30 AM EST Office Visit [place] [address] Mily Garcia MD [facility] [place] [address] documented as of this encounter Procedures Procedure Name Priority Date/Time Associated Diagnosis Comments US ABDOMEN LIMITED HEPATOLOGY PROTOCOL Routine 02/07/2024 9:16 AM EDT Hepatic cirrhosis, unspecified hepatic cirrhosis type, unspecified whether ascites present Autoimmune hepatitis documented in this encounter Results * US Abdomen Limited Hepatology Protocol (02/07/2024 9:16 AM EDT) WORKSTATION ID [id number] DH RAD Anatomical Region Laterality Modality Abdomen Ultrasound 02/07/2024 [...] who have questions, please contact the health patient care representative that requested your imaging first. ?Que Tee, Staff Physician Electronically Signed Final Report ?? 02/07/2024 09:42 am Narrative 02/07/2024 9:42 AM EDT Abdominal ? (Signed Final 02/07/2024 09:42 am) PATIENT INFO: ID #: ? [id number] ?: ??55 (68 yrs)(F) Name: ? GENOVEVA A ?Visit Date: 02/07/2024 09:16 am ? CASEY PERFORMED BY: Attending: ?Randal GO, Que Mathis Resident: ? Bobby Gotti MD Performed By: ? Cecy Krueger RDMS Referred By: ?MILY GARCIA Location: ? [place] [facility] - Abdominal ?42487 Limited Survey Single Organ or Quadrant - [id number] INDICATIONS: cirrhosis, HCC screening TECHNIQUE/SCAN QUALITY: Scan [...] 02/07/2024 09:42 am) PATIENT INFO: ID #: [id number] : 55 (68 yrs)(F) Name: GENOVEVA Zaragoza Visit Date: 02/07/2024 09:16 am CASEY PERFORMED BY: Attending: Que Tee MD Resident: Bobby Gotti MD Performed By: Cecy Krueger RDMS Referred By: MILY GRACIA Location: [place] SERVICE(S) PROVIDED: [facility] - Hepatology Protocol - Abdominal [id number] Limited Survey Single Organ or Quadrant - [id number] INDICATIONS: cirrhosis, HCC screening TECHNIQUE/SCAN QUALITY: Scan [...] who have questions, please contact the health patient care representative that requested your imaging first. Que Tee, Staff Physician Electronically Signed Final Report 02/07/2024 09:42 am Mily Garcia MD IMG US GEN ORDERABLE S documented in this encounter Visit Diagnoses Diagnosis Hepatic cirrhosis, unspecified hepatic cirrhosis type, unspecified whether ascites present Autoimmune hepatitis documented in this encounter Care Teams Technical Applications Specialist Relationship Specialty Start Date End Date Sanam Bennett APRN [address] [place] [address] PCP - General Family Medicine 09/06/22 documented as of this encounter
--- OUTSIDE RECORDS SUMMARY | 2024-04-27 01:25 | XMS_ITS | Encounter Summary ---
Author Organization [facility] [place] [address] Care Team Providers Care Recenterer Name Role Phone Sanam Bennett MERARI Primary Care Provider Encounter Details Date Type Department Care Team (Latest Contact Info) Description 06/28/2023 Travel Social History Tobacco Use Types Packs/Day [...] 09/17/2024 9:00 AM [place] [phone] [facility] [place] [address] 09/17/2024 9:45 AM EST Laboratory Appointment Lab [address] [place] [phone] 09/17/2024 11:30 AM EST Office [place] [address] [facility] [place] [address] documented as of this encounter Visit Diagnoses Not on filedocumented in this encounter Care Teams Recenterer Relationship Specialty Start Date End Date Sanam Bennett APRN [address] [place] [address] [address] [place] [address] PCP - General Family Medicine 09/06/22 documented as of this encounter
--- OUTSIDE RECORDS SUMMARY | 2024-04-27 01:25 | XMS_ITS | Encounter Summary ---
Author Organization [facility] [place] [address] Care Team Providers Care As400 Administrator Name Role Phone OrenSanam ehrring MERARI Primary Care Provider Encounter Details Date Type Department Care Team (Latest Contact Info) Description 05/01/2023 Travel Social History Tobacco Use Types Packs/Day [...] 09/17/2024 9:00 AM EST [place] [phone] Mily Garcia MD [facility] [place] [address] 09/17/2024 9:45 AM EST Laboratory Appointment Lab [address] [place] [phone] 09/17/2024 11:30 AM EST Office [place] [address] Mily Garcia MD [facility] [place] [address] documented as of this encounter Visit Diagnoses Not on filedocumented in this encounter Care Teams As400 Administrator Relationship Specialty Start Date End Date Sanam Bennett APRN [address] [place] [address] [address] [place] [address] PCP - General Family Medicine 09/06/22 documented as of this encounter
--- OUTSIDE RECORDS SUMMARY | 2024-04-27 01:25 | XMS_ITS | Encounter Summary ---
Author Organization [facility] [place] [address] Care Team Providers Care Primer Expeditor And Drier Name Role Phone Sanam Bennett APRN Primary Care Provider [phone] Encounter Details Date Type Department Care Team (Late st Contact Info) Description 11/20/2022 External Results [place] [phone] Analy [place], RAÚL Social History Tobacco Use Types Packs/Day Years [...] 09/17/2024 9:00 AM EST [place] [phone] Mily Garcia MD [facility] [place] [address] 09/17/2024 9:45 AM EST Laboratory Appointment [facility] [place] [address] 09/17/2024 11:30 AM EST Office [place] [address] Mily Garcia MD [facility] [place] [address] documented as of this encounter Procedures Procedure Name Priority Date/Time Associated Diagnosis Comments EXTERNAL LAB CBC CMP THYROID RESULTS PANEL Routine 11/19/2022 documented in this encounter Results * CBC / CMP / Thyroid External Results (11/19/2022) WBC 7.67 EXTERNAL LAB RBC 4.90 EXTERNAL LAB Hemoglobin 14.2 EXTERNAL LAB Hematocrit 43.3 EXTERNAL LAB MCV 88.0 EXTERNAL LAB Platelets 263 EXTERNAL LAB Sodium 141 EXTERNAL LAB Potassium 3.8 EXTERNAL LAB Chloride 103 EXTERNAL LAB CO2 30 EXTERNAL LAB BUN 9 EXTERNAL LAB Creatinine 0.8 EXTERNAL LAB Estimated GFR 80.71 EXTERNAL LAB Glucose Lvl 121 EXTERNAL LAB Calcium 9.1 EXTERNAL LAB Total Protein 7.9 EXTERNAL LAB Albumin 3.5 EXTERNAL LAB Total Bilirubin 0.4 EXTERNAL LAB Alk Phos 100 EXTERNAL LAB AST 28 EXTERNAL LAB ALT 32 EXTERNAL LAB 11/19/2022 Historical Provider POINT OF CARE MARLENE T ORDERABLES EXTERNAL LAB documented in this encounter Visit Diagnoses Not on filedocumented in this encounter Care Teams Primer Expeditor And Drier Relationship Specialty Start Date End Date Sanam Bennett APRN [address] [place] [address] PCP - General Family Medicine 09/06/22 documented as of this encounter
--- OUTSIDE RECORDS SUMMARY | 2024-04-27 01:25 | XMS_ITS | Encounter Summary ---
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 Gastroenterology and Hepatology Follow Up Note Patient: Genoveva Whiting : 1955 Provider: Mily Garcia MD Problem List: #Cirrhosis, secondary to AIH/DOHERTY - Liver biopsy 08/2022: The biopsy shows periportal/septal chronic inflammayion with plasma cell admixture. Foci of lobular chronic inflammation consisting predominantly of lymphocytes and histiocytes are also noted. Rnay-mm-bcoremhe steatosis is present. Trichrome stain highlights advanced fibrosis with possible cirrhosis. Iron stain is negative. The findings are consistent with the pattern of chronic active hepatitis. Differential diagnosis includes chronic drug injury, autoimmune hepatitis and celiac disease, however the findings appear to be too advanced for celiac disease-associated hepatitis. - Reviewed at liver path 10/04/2022: F3-4 #AIH - 09/2022: started Prednisone 40 mg and azathioprine 50 mg daily - 10/27/2022: decrease pred to 20 mg, AZA 50 mg - 11/20/2022: off pred, AZA 50 mg Latest Reference Range & Units 08/27/22 13:37 10/22/22 00:00 11/05/22 00:00 11/12/22 00:00 11/19/22 00:00 11/26/22 00:00 12/25/22 08:45 01/07/23 00:00 01/21/23 00:00 02/04/23 00:00 Total Bilirubin 0.2 - 1.3 mg/dL 0.6 0.6 (E) 0.5 (E) 0.5 (E) 0.4 (E) 0.3 (E) 0.4 0.3 (E) 0.5 (E) 0.3(E) Alk Phos 35 - 105 unit/L 141 (H) 106 (E) 111 (E) 108 (E) 100 (E) 141 (E) 89 96 (E) 89 (E) 85 (E) AST 0 - 30 unit/L 184 (H) 45 (E) 35 (E) 29 (E) 28 (E) 33 (E) 37 (H) 42 (E) 36 (E) 30 (E) ALT 0 - 30 unit/L 170 (H) 87 (E) 61 (E) 40 (E) 32 (E) 30 (E) 25 35 (E) 33 (E) 30 (E) Latest Reference Range & Units 06/28/23 09:24 Albumin 3.2 - 5.2 g/dL 4.4 Total Bilirubin 0.2 - 1.3 mg/dL 0.3 Alk Phos 35 - 105 unit/L 87 AST 0 - 30 unit/L 21 ALT 0 - 30 unit/L 14 #At risk for HCC - U/S 06/28/2023 negative for HCC #At risk for esophageal varices - EGD/EUS negative for varices 08/2022 Interval History: No jaundice, ascites, HE, or GI bleeding. Current Outpatient Medications Medication Sig Dispense Refill hydrocortisone 2.5 % Cream Apply twice daily to the affected areas on the lips for 14/21 days, thentake one week off, and repeat as needed. 30 g 1 lactulose (Chronulac) 10 gram/15 mL Solution Take 30 mLs by mouth 2 times daily. 1892 mL 10 omeprazole (PriLOSEC) 40 mg Capsule, Delayed Release(E.C.) Take 40 mg by mouth daily. azaTHIOprine (Imuran) 50 mg Tablet Take 1 tablet by mouth daily. 90 tablet 3 doxepin (SINEquan) 10 mg Capsule FeroSuL 325 mg (65 mg iron) Tablet rOPINIRole (Requip) [address] (Cymbalta) 60 mg Capsule, Delayed Release(E.C.) ascorbic acid, vitamin C, (VITAMIN C) 500 mg Tablet, Chewable Take by mouth. LORazepam (ATIVAN) 1 mg tablet Take 1 mg by mouth nightly. pravastatin (PRAVACHOL) 40 mg tablet Take 40 mg by mouth daily. AMITRIPTYLINE HCL (AMITRIPTYLINE ORAL) Take 75 mg by mouth daily. DULOXETINE HCL (CYMBALTA ORAL) Take 60 mg by mouth daily. clobetasol (TEMOVATE) 0.05 % ointment Apply topically as needed. No current facility-administered medications for this visit. Vitals: 06/28/23 1128 BP: 124/57 BP Location ([facility]): Right arm Patient Position: Sitting BP Cuff Sizes: Large Adult (32-43 cm) Pulse: 57 Weight: 77 kg (169 lb 12.8 oz) Height: 154.9 cm (5' 1) Body mass index is 32.08 kg/m??. Exam: Looks well Assessment and Plan: #Cirrhosis, secondary to AIH/MASH Prior liver biopsy showed F3-4 fibrosis with feature of AIH and MASH. Continue on AZA 50 mg daily. Next labs in 3 months. Labs and visit in 6 months. #At risk for HCC Reviewed recommendation of imaging every 6 months for HCC screening. Next due in 05/2023. Ultrasoundhas been ordered. #At risk for esophageal varices No varices on EUS in 08/2022, next EGD in 08/2024. #Celiac disease Normal small bowel biopsy 08/2022. Mily Garcia MD Section of Gastroenterology & Hepatology [address] [place] [id number] Time spent reviewing records prior to this encounter: 5 minutes Time spent during encounter with patient including counselin minutes Time spent documenting encounter after office visit: 5 minutes Approximate total time devoted to this single encounter on the day of the encounter: 20 minutes Cc: Sanam Bennett APRN documented in this encounter Plan of Treatment Upcoming Encounters Date Type Department Care Team (Late st Contact Info) Description 09/17/2024 9:00 AM EST [place] [address] Mily Garcia MD [facility] [place] [address] 09/17/2024 9:45 AM EST Laboratory Appointment Lab 3[address] [place] [address] 09/17/2024 11:30 AM EST Office [place] [address] Mily Garcia MD [facility] [place] [address] Scheduled Orders Name Type Priority Associated Diagnoses Orde r Schedule CBC (with Diff) Lab Routine Hepatic cirrhosis, unspecified hepatic cirrhosis type, unspecified whether ascites present Autoimmune hepatitis Expected: 12/27/2023 (Approximate), Expires: 06/27/2024 Comprehensive metabolic panel (non-fasting) Lab Routine Hepatic cirrhosis, unspecified hepatic cirrhosis type, unspecified whether ascites present Autoimmune hepatitis Expected: 12/27/2023 (Approximate), Expires: 06/27/2024 Prothrombin Time Lab Routine Hepatic cirrhosis, unspecified hepatic cirrhosis type, unspecified whether ascites present Autoimmune hepatitis Expected: 12/27/2023 (Approximate), Expires: 06/27/2024 documented as of this encounter Results * Tissue transglutaminase, IgA (02/07/2024 10:06 AM EDT) TTG IgA Ab <0.4 <=10.0 u/ml [facility] Comment: Negative: ??<7 units/mL Indeterminate: 7-10 units/mL Positive: ??>10 units/mL Blood 02/07/2024 10:0 6 AM EDT 02/10/2024 7:34 AM EDT Narrative Resulting Agency Comment Spec In Lab Mily Garcia MD IMMUNOLOGY ORDERABLE S [facility] [place] [address] * AFP tumor marker (02/07/2024 10:06 AM EDT) Pathologist [facility] [place] AFP 3.0 <=8.3 ng/mL [facility] Comment: This result was generated using a Radha Anshu immunoassay. ??Results obtained from other methods or manufacturers cannot be used interchangeably with this method. Blood 02/07/2024 10:0 6 AM EDT 02/07/2024 10:21 AM EDT Narrative Resulting Agency Comment Spec In Lab Mily Garcia MD CHEMISTRY ORDERABLES Performing Organization Address [facility] de Phone Number [facility] [place] [address] * Prothrombin Time (02/07/2024 10:06 AM EDT) PT 11.8 9.4 - 12.5 sec [facility] INR 1.0 [facility] Comment: An INR <2.0 indicates [...] MD HEMATOLOGY ORDERABLE S Performing Organization Address [facility] de Phone Number [facility] [place] [address] * (ABNORMAL) Comprehensive metabolic panel (non-fasting) (02/07/2024 10:06 AM EDT) Glucose Lvl 93 65 - 199 mg/dL [facility] Comment:Diabetes: >=200 mg/d L plus symptoms BUN 17 8 - 18 mg/dL [facility] Creatinine 0.63(L) 0.70 - 1.20 mg/dL [facility] Sodium 141 135 - 145 mmol/L [facility] Potassium 4.4 3.5 - 5.0 mmol/L [facility] Comment: Please note: ??Patients with WBC >100,000 may have falsely elevated Potassium levels. ??For accurate Potassium quantification in these patients send serum separator tube (gold top) for subsequent determinations. ??Contact the Clinical Chemistry Laboratory if there are any questions. Chloride 104 98 - 107 mmol/L [facility] CO2 26 22 - 31 mmol/L [facility] Anion Gap 11 5 - 15 mmol/L [facility] Calcium 9.1 8.5 - 10.5 mg/dL [facility] Total Protein 7.7 6.1 - 8.0 g/dL [facility] Albumin 4.4 3.2 - 5.2 g/dL [facility] AST 25 0 - 30 unit/L [facility] ALT 14 0 - 30 unit/L [facility] Alk Phos 83 35 - 105 unit/L [facility] Total Bilirubin 0.2 0.2 - 1.3 mg/dL [facility] Estimated GFR 97 >=60 mL/min/1. 73 m?? [facility] Comment: This patient's estimated GFR [...] In Lab Mily Garcia MD CHEMISTRY ORDERABLES [facility] [place] [address] * US Abdomen Limited Hepatology Protocol (02/07/2024 9:16 AM EDT) WORKSTATION ID [id number] RAD Anatomical Region Laterality Modality Abdomen Ultrasound [...] who have questions, please contact the health healthcare customer service that requested your imaging first. ?Que Tee, Staff Physician Electronically Signed Final Report ?? 02/07/2024 09:42 am Narrative 02/07/2024 9:42 AM EDT Abdominal ? (Signed Final 02/07/2024 09:42 am) PATIENT INFO: ID #: ? [id number] ?: ??[birth year] (68 yrs)(F) Name: ? GENOVEVA Zaragoza ?Visit Date: 02/07/2024 09:16 am ? CASEY PERFORMED BY: Attending: ?Randal GO, Que Mathis Resident: ? Bobby Gotti MD Performed By: ? Cecy Krueger RDMS Referred By: ?MILY GARCIA Location: ? [place] [facility] Protocol - Abdominal ?03057 Limited Survey Single Organ or Quadrant - [id number] INDICATIONS: cirrhosis, HCC screening TECHNIQUE/SCAN QUALITY: Scan [...] 02/07/2024 09:42 am) PATIENT INFO: ID #: [id number] : [birth year] (68 yrs)(F) Name: GENOVEVA Zaragoza Visit Date: 02/07/2024 09:16 am CASEY PERFORMED BY: Attending: Que Tee MD Resident: Bobby Gotti MD Performed By: Cecy Krueger RDMS Referred By: MILY GARCIA Location: [place] SERVICE(S) PROVIDED: [facility] - Hepatology Protocol - Abdominal 03065 Limited Survey Single Organ or Quadrant - [id number] INDICATIONS: cirrhosis, HCC screening TECHNIQUE/SCAN QUALITY: Scan [...] who have questions, please contact the health healthcare customer service that requested your imaging first. 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
--- OUTSIDE RECORDS SUMMARY | 2024-04-27 01:25 | XMS_ITS | Encounter Summary ---
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 [...] 09/17/2024 9:00 AM EST [place] [phone] Mily Garcia MD [facility] [place] [place] [address] 09/17/2024 9:45 AM EST Laboratory Appointment Lab [address] [place] [address] 09/17/2024 11:30 AM EST Office [place] [address] Mily Garcia MD [facility] [place] [address] documented as of this encounter Procedures Procedure Name Priority Date/Time Associated Diagnosis Comments SCAN, PERIPHERAL BLOOD Routine 9:24 AM EDT HEMOGRAM Routine 06/28/2023 9:24 AM EDT Autoimmune hepatitis 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 DIFFERENTIAL, AUTOMATED Routine 06/28/2023 9:24 AM EDT Autoimmune hepatitis 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 HC ALPHA FETOPROTEIN TUMOR MARKER Routine 06/28/2023 9:24 AM EDT 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 HC VENIPUNCTURE Routine 06/28/2023 9:24 AM EDT Autoimmune hepatitis 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 HC CBC,PLT & AUTO DIFF Routine 9:24 AM EDT Autoimmune hepatitis 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 COMPREHENSIVE METABOLIC PANEL (NON-FASTING) Routine 06/28/2023 9:24 AM EDT Autoimmune hepatitis 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 documented in this encounter Results * Scan, Peripheral Blood (06/28/2023 9:24 AM EDT) Plat Estimate Normal [facility] RBC Morphology Normal [facility] Blood 06/28/2023 9:24 AM EDT 06/28/2023 9:31 AM EDT Narrative Resulting Agency Comment Spec In Lab Rebeca Yoon SECURITY RESEARCHER HEMATOLOGY ORDERAB LES [facility] [place] [address] * (ABNORMAL) Differential, Automated (06/28/2023 9:24 AM EDT) Pathologist [facility] Neutrophils % 37.5 % [facility] Neutr Abs (ANC) 2.37 1.70 - 6.10 x10(3)/[facility] Lymphocytes % 40.2 % [facility] Lymphocytes Abs 2.5 0.9 - 3.2 x10(3)/[facility] Monocytes % 10.0 % [facility] Monocyte Abs 0.6 0.3 - 0.9 x10(3)/[facility] Eosinophils % 10.6 % [facility] Eosinophils Abs 0.7(H) 0.0 - 0.4 x10(3)/[facility] Basophils % 1.4 % [facility] Basophils Abs 0.1 0.0 - 0.1 x10(3)/[facility] Immature Gran % 0.30 % [facility] Comment: Immature granulocytes(IG's)percentage and absolute count will include metamyelocytes, myelocytes, and promyelocytes. Blood smears from CBCs yielding IG's will be scanned manually for concordance. If this scan disagrees with the automated IG or if promyelocytes are noted, a manual differential will be performed. Yuliet Gran Abs 0.02 0.00 - 0.04 x10(3)/[facility] Blood 06/28/2023 9:24 AM EDT 06/28/2023 9:31 AM EDT Narrative Resulting Agency Comment Spec In Lab Rebeca Yoon SECURITY RESEARCHER [place] [address] * Hemogram (06/28/2023 9:24 AM EDT) Pathologist [facility] WBC 6.3 4.0 - 9.5 x10(3)/[facility] RBC 4.86 4.00 - 5.21 x10(6)/[facility] Hemoglobin 13.9 11.7 - 15.5 g/dL [facility] Hematocrit 41.4 35.7 - 45.8 % [facility] MCV 85.2 82.6 - 94.4 [facility] MCH 28.6 27.1 - 32.[address] [facility] MCHC 33.6 31.7 - 35.0 g/dL [facility] Platelets 227 145 - 357 x10(3)/[facility] RDWSD 40.7 37.0 - 46.0 [facility] RDWCV 13.0 11.5 - 14.1 % [facility] MPV 10.4 7.6 - 12.9 [facility] nRBC % Auto 0.0 % [facility] nRBC Abs Auto 0.000 0.000 - 0.000 x10(3)/[facility] Blood 06/28/2023 9:24 AM EDT 06/28/2023 9:31 AM EDT Narrative Resulting Agency Comment Spec In Lab Rebeca Yoon SECURITY RESEARCHER HEMATOLOGY ORDERAB LES Performing Organization Address City/State/[facility] Co de Phone Number [facility] [place] [address] * AFP tumor marker (06/28/2023 9:24 AM EDT) [facility] AFP 3.2 <=8.3 ng/mL [facility] Comment: This result was generated using a Radha Anshu immunoassay. ??Results obtained from other methods or manufacturers cannot be used interchangeably with this method. Blood 06/28/2023 9:24 AM EDT 06/28/2023 9:31 AM EDT Narrative Resulting Agency Comment Spec In Lab Mily Garcia MD CHEMISTRY ORDERABLES [facility] [place] [address] * (ABNORMAL) Comprehensive metabolic panel (non-fasting) (06/28/2023 9:24 AM EDT) Glucose Lvl 104 65 - 199 mg/dL [facility] Comment:Diabetes: >=200 mg/d L plus symptoms BUN 29(H) 8 - 18 mg/dL [facility] Creatinine 0.75 0.70 - 1.20 mg/dL [facility] Sodium 140 135 - 145 mmol/L [facility] Potassium 4.9 3.5 - 5.0 mmol/L [facility] Comment: Please note: ??Patients with WBC >100,000 may have falsely elevated Potassium levels. ??For accurate Potassium quantification in these patients send serum separator tube (gold top) for subsequent determinations. ??Contact the Clinical Chemistry Laboratory if there are any questions. Chloride 103 98 - 107 mmol/L [facility] CO2 27 22 - 31 mmol/L [facility] Anion Gap 10 5 - 15 mmol/L [facility] Calcium 9.4 8.5 - 10.5 mg/dL [facility] Total Protein 7.9 6.1 - 8.0 g/dL [facility] Albumin 4.4 3.2 - 5.2 g/dL [facility] AST 21 0 - 30 unit/L [facility] ALT 14 0 - 30 unit/L [facility] Alk Phos 87 35 - 105 unit/L [facility] Total Bilirubin 0.3 0.2 - 1.3 mg/dL [facility] Estimated GFR 87 >=60 mL/min/1. 73 m?? [facility] Comment: This patient's estimated GFR [...] and symptoms in addition to eGFR. Blood 06/28/2023 9:24 AM EDT 06/28/2023 9:31 AM EDT Narrative Resulting Agency Comment Spec In Lab Rebeca Yoon SECURITY RESEARCHER CHEMISTRY ORDERABL ES Performing Organization Address [facility] Co de Phone Number [facility] [place] [address] * (ABNORMAL) Prothrombin Time (06/28/2023 9:24 AM EDT) PT 12.9(H) 9.4 - 12.[address] [facility] INR 1.1 [facility] Comment: An INR <2.0 [...] be appropriate depending on clinical circumstances. 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
--- OUTSIDE RECORDS SUMMARY | 2024-04-27 01:25 | XMS_ITS | Encounter Summary ---
Author Organization [facility] Address [facility] [place] [address] Care Team Providers Care Rubber Process Hand Name Role Phone Sanam Bennett APRN Primary Care Provider [phone] Encounter Details Date Type Department Care Team (Late st Contact Info) Description 01/08/2023 External Results [place] [phone] Mily Garcia MD [facility] [place] [address] Social History Tobacco Use Types Packs/Day Years [...] 09/17/2024 9:00 AM EST Appointment [place] [phone] Mily Garcia MD [facility] [place] [address] 09/17/2024 9:45 AM EST Laboratory Appointment Lab [address] [place] [address] 09/17/2024 11:30 AM EST Office Visit [place] [address] iMly Garcia MD [facility] DR GASTROENTEROLOGY [place], [place] [id number] documented as of this encounter Procedures Procedure Name Priority Date/Time Associated Diagnosis Comments EXTERNAL LAB CBC CMP THYROID RESULTS PANEL Routine 01/07/2023 documented in this encounter Results * CBC / CMP / Thyroid External Results (01/07/2023) Sodium 139 Potassium 3.8 Chloride 103 CO2 30 BUN 12 Creatinine 0.7 Estimated GFR 94.73 Glucose Lvl 86 Calcium 8.9 Total Protein 7.9 Albumin 3.5 Total Bilirubin 0.3 Alk Phos 96 AST 42 ALT 35 Historical Provider POINT OF CARE MARLENE T ORDERABLES documented in this encounter Visit Diagnoses Not on filedocumented in this encounter Care Teams Rubber Process Hand Relationship Specialty Start Date End Date Sanam BennettMERARI [address] [place] [address] PCP - General Family Medicine 09/06/22 documented as of this encounter
--- OUTSIDE RECORDS SUMMARY | 2024-04-27 01:25 | XMS_ITS | Encounter Summary ---
Author Organization [facility] Address [facility] [place] [address] Care Team Providers Care Market Specialist Name Role Phone Sanam Bennett APRN Primary Care Provider [phone] Encounter Details Date Type Department Care Team (Late st Contact Info) Description 11/13/2022 External Results [place] [phone] Mily Garcia MD [facility] [place] [address] Social History Tobacco Use Types Packs/Day Years [...] 09/17/2024 9:00 AM EST Appointment [place] [phone] Mily Garcia MD [facility] [place] [address] 09/17/2024 9:45 AM EST Laboratory Appointment Lab [address] [place] [address] 09/17/2024 11:30 AM EST Office Visit [place] [phone] Mily Garcia MD [facility] [place] [address] documented as of this encounter Procedures Procedure Name Priority Date/Time Associated Diagnosis Comments EXTERNAL LAB CBC CMP THYROID RESULTS PANEL Routine 11/12/2022 documented in this encounter Results * CBC / CMP / Thyroid External Results (11/12/2022) WBC 8.34 RBC 5.19 Hemoglobin 14.9 Hematocrit 45.4 MCV 88.0 Platelets 204 Sodium 136 Potassium 4.2 Chloride 100 CO2 26 BUN 14 Creatinine 0.8 Estimated GFR 80.71 Glucose Lvl 137 Calcium 9.0 Total Protein 8.1 Albumin 3.8 Total Bilirubin 0.5 Alk Phos 108 AST 29 ALT 40 Historical Provider POINT OF CARE MARLENE T ORDERABLES documented in this encounter Visit Diagnoses Not on filedocumented in this encounter Care Teams Market Specialist Relationship Specialty Start Date End Date OrennimaMandySanamMERARI solares [address] [place] [address] PCP - General Family Medicine 09/06/22 documented as of this encounter
--- OUTSIDE RECORDS SUMMARY | 2024-04-27 01:25 | XMS_ITS | Encounter Summary ---
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 turmeric root extract 500 mg capsule Take 500 mg by mouth every other day. 02/07/2024 hydrocortisone 2.5 % CreamIndications:Lip licking dermatitis Apply twice daily to the affected areas on the lips for 14/21 days, then take one week off, and repeat as needed. 30 g 1 05/02/2023 02/07/2024 lactulose (Chronulac) 10 gram/15 mL Solution Take 30 mLs by mouth 2 times daily. 1892 mL 10 03/28/2023 02/07/2024 azaTHIOprine (Imuran) 50 mg Tablet Take 1 tablet by mouth daily. 90 tablet 3 10/09/2022 09/03/2023 FeroSuL 325 mg (65 mg iron) Tablet 06/12/2022 02/07/2024 ascorbic acid, vitamin C, (VITAMIN C) 500 mg Tablet, Chewable Take by mouth. LORazepam (ATIVAN) 1 mg tablet Take 1 mg by mouth nightly. 02/07/2024 AMITRIPTYLINE HCL (AMITRIPTYLINE ORAL) Take 75 mg by mouth daily. 02/07/2024 DULOXETINE HCL (CYMBALTA ORAL) Take 60 mg by mouth daily. 02/07/2024 documented as of this encounter Plan of Treatment Upcoming Encounters Date Type Department Care Team (Late st Contact Info) Description 09/17/2024 9:00 AM EST Appointment [place] [address] Mily Garcia MD [facility] [place] [address] 09/17/2024 9:45 AM EST Laboratory Appointment Lab [address] [place] [address] 09/17/2024 11:30 AM EST Office Visit [place] [address] Mily Garcia MD [facility] [place] [address] documented as of this encounter Procedures Procedure Name Priority Date/Time Associated Diagnosis Comments US ABDOMEN LIMITED HEPATOLOGY PROTOCOL Routine 06/28/2023 9:05 AM EDT 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 Liver remains within normal size limits. Diffusely coarsened parenchyma, no capsular nodularity. There is no focal hepatic lesion. 2. Gallbladder is surgically absent. No intra or extrahepatic biliary ductal dilation. 4. No ascites. Thank you for letting us participate in the care of this patient. If you are a health care provider and have any questions regarding this report, please contact the number above. For patients who have questions, please contact the health daycare worker that requested your imaging first. ?Damian Almazan, Staff Physician Electronically Signed Final Report ?? 06/28/2023 09:20 am Narrative 06/28/2023 9:21 AM EDT Abdominal ? (Signed Final 06/28/2023 09:20 am) PATIENT INFO: ID #: ? [id number] ?: ??[birth year] (68 yrs)(F) Name: ? GENOVEVA Zaragoza ?Visit Date: 06/28/2023 09:00 am ? KISHA PERFORMED BY: Attending: ?Damian Almazan MD Performed By: ? Stefania Thomas RDMS Referred By: ?MILY GARCIA Location: ? [place] [facility] Protocol - Abdominal ?97000 Limited Survey Single Organ or Quadrant - [id number] INDICATIONS: cirrhosis, HCC screening COMPARISON: US: Hepatology 12/25/2022 ------ LIVER: ------ Right Lobe Length: ?? 12.5 ?? cm Echogenicity/Echotexture: ?? Coarse parenchyma without ? capsular nodularity Comment: ?No focal lesion seen. GALLBLADDER: Focal Tenderness: ?Negative sonographic Lin's sign Comment: ?Surgically absent. BILIARY TRACT: Intrahepatic Ducts: ?? Normal Extrahepatic Ducts: ?? Normal Common Duct Size: ? 3.9 ? mm ------- SPLEEN: ------- Size (cm) ?L: ??10.6 ?AP: ??4.0 ? TV: ??10.8 Vol (ml): ?239.8 FLUID COLLECTIONS: Ascites not present on 4 quadrant evaluation. Procedure Note Damian Almazan MD - 06/28/2023 Abdominal (Signed Final 06/28/2023 09:20 am) PATIENT INFO: ID #: [id number] : 55 (68 yrs)(F) Name: GENOVEVA Zaragoza Visit Date: 06/28/2023 09:00 am KISHA PERFORMED BY: Attending: Damian Almazan MD Performed By: Stefania Thomas RDMS Referred By: MILY GARCIA Location: [place] SERVICE(S) PROVIDED: [facility] - Hepatology Protocol - Abdominal 04501 Limited Survey Single Organ or Quadrant - [id number] INDICATIONS: cirrhosis, HCC screening COMPARISON: US: Hepatology 12/25/2022 ------ LIVER: ------ Right Lobe Length: 12.5 cm Echogenicity/Echotexture: Coarse parenchyma without capsular nodularity Comment: No focal lesion seen. GALLBLADDER: Focal Tenderness: Negative sonographic Lin's sign Comment: Surgically absent. BILIARY TRACT: Intrahepatic Ducts: Normal Extrahepatic Ducts: Normal Common Duct Size: 3.9 mm ------- SPLEEN: ------- Size (cm) L: 10.6 AP: 4.0 TV: 10.8 Vol (ml): 239.8 FLUID COLLECTIONS: Ascites not present on 4 quadrant evaluation. IMPRESSION 1. Liver remains within normal size limits. Diffusely coarsened parenchyma, no capsular nodularity. There is no focal hepatic lesion. 2. Gallbladder is surgically absent. No intra or extrahepatic biliary ductal dilation. 4. No ascites. Electronically signed by: Damian Almazan MD, [facility] ([phone]), at 06/28/2023 9:14 AM Thank you for letting us participate in the care of this patient. If you are a health care provider and have any questions regarding this report, please contact the number above. For patients who have questions, please contact the health daycare worker that requested your imaging first. 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
--- OUTSIDE RECORDS SUMMARY | 2024-04-27 01:25 | XMS_ITS | Encounter Summary ---
Author Organization [facility] [place] [address] Care Team Providers Care Specifications Writer Name Role Phone OrenSanam herring MERARI Primary Care Provider [phone] Encounter Details Date Type Department Care Team (Latest Contact Info) Description 03/28/2023 Travel Social History Tobacco Use Types Packs/Day [...] 09/17/2024 9:00 AM EST Appointment [place] [phone] Mily Garcia MD [facility] [place] [place] [address] 09/17/2024 9:45 AM EST Laboratory Appointment Lab [address] [place] [phone] 09/17/2024 11:30 AM EST Office Visit [place] [address] Mily Garcia MD [facility] [place] [address] documented as of this encounter Visit Diagnoses Not on filedocumented in this encounter Care Teams Specifications Writer Relationship Specialty Start Date End Date Sanam Bennett APRN [address] [place] [address] [address] [place] [address] PCP - General Family Medicine 09/06/22 documented as of this encounter
--- OUTSIDE RECORDS SUMMARY | 2024-04-27 01:25 | XMS_ITS | Encounter Summary ---
Author Organization [facility] Address [facility] [place] [address] Care Team Providers Care Guard Chief Name Role Phone OrenSanam herring MERARI Primary Care Provider Encounter Details Date Type Department Care Team (Latest Contact Info) Description 12/25/2022 7:07 AM EDT - 12/25/2022 11:59 PM EDT Hospital En[place] [address] Mily Garcia MD [facility] [place] [address] Hepatic cirrhosis, unspecified hepatic cirrhosis type, unspecified whether ascites present Discharge Disposition: Home Social History Tobacco Use [...] Sig Dispensed Refills Start Date End Date omeprazole (PriLOSEC) 40 mg Capsule, Delayed Release(E.C.) Take 40 mg by mouth daily. 07/02/2022 doxepin (SINEquan) 10 mg Capsule 09/05/2022 rOPINIRole (Requip) 1 mg Tablet Take 2 mg by mouth nightly. 09/05/[address] (Cymbalta) 60 mg Capsule, Delayed Release(E.C.) 09/05/2022 pravastatin (PRAVACHOL) 40 mg tablet Take 40 mg by mouth daily. clobetasol (TEMOVATE) 0.05 % ointment Apply topically as needed. predniSONE (Deltasone) 10 mg Tablet Take 4 tablets by mouth daily. 360 tablet 3 10/09/2022 03/28/2023 azaTHIOprine (Imuran) 50 mg Tablet Take 1 tablet by mouth daily. 90 tablet 3 10/09/2022 09/03/2023 FeroSuL 325 mg (65 mg iron) Tablet 06/12/2022 02/07/2024 ascorbic acid, vitamin C, (VITAMIN C) 500 mg Tablet, Chewable Take by mouth. 02/07/2024 esomeprazole (NEXIUM) 40 mg capsule Take 1 capsule by mouth 2 times daily. 180 capsule 3 10/07/2013 03/28/2023 LORazepam (ATIVAN) 1 mg tablet Take 1 mg by mouth nightly. 02/07/2024 AMITRIPTYLINE HCL (AMITRIPTYLINE ORAL) Take 75 mg by mouth daily. 02/07/2024 DULOXETINE HCL (CYMBALTA ORAL) Take 60 mg by mouth daily. 02/07/2024 documented as of this encounter Plan of Treatment Upcoming Encounters Date Type Department Care Team (Late st Contact Info) Description 09/17/2024 9:00 AM [place] [phone] Mily Garcia MD [facility] [place] [address] 09/17/2024 9:45 AM EST Laboratory Appointment Lab [address] [place] [phone] 09/17/2024 11:30 AM EST Office [place] [phone] Mily Garcia MD [facility] [place] [address] documented as of this encounter Procedures Procedure Name Priority Date/Time Associated Diagnosis Comments US ABDOMEN LIMITED HEPATOLOGY PROTOCOL Routine 12/25/2022 8:06 AM EDT Hepatic cirrhosis, unspecified hepatic cirrhosis type, unspecified whether ascites present documented in this encounter Results * US Abdomen Limited Hepatology Protocol (12/25/2022 [...] who have questions, please contact the health client care representative that requested your imaging first. ?Que Tee, Staff Physician Electronically Signed Final Report ?? 12/25/2022 09:01 am Narrative 12/25/2022 9:01 AM EDT Abdominal ? (Signed Final 12/25/2022 09:01 am) PATIENT INFO: ID #: ? [id number] ?: ??55 (67 yrs)(F) Name: ? GENOVEVA Zaragoza ?Visit Date: 12/25/2022 08:08 am ? KISHA PERFORMED BY: Attending: ?Randal GO, Que Mathis Resident: ? Francisco Javier GO, Ilda Perrin Performed By: ? Baljit Olivas RDMS Referred By: ?MILY GARCIA Location: ? [place] SERVICE(S) PROVIDED: [facility] - Hepatology Protocol - Abdominal ?20529 Limited Survey Single Organ or Quadrant - [id number] INDICATIONS: cirrhosis, HCC screening COMPARISON: US: Abdomen [...] 12/25/2022 09:01 am) PATIENT INFO: ID #: [id number] : 55 (67 yrs)(F) Name: GENOVEVA Zaragoza Visit Date: 12/25/2022 08:08 am KISHA PERFORMED BY: Attending: Que Tee MD Resident: Ilda Mcintyre MD Performed By: Baljit Olivas RDMS Referred By: MILY GARCIA Location: [place] SERVICE(S) PROVIDED: [facility] - Hepatology Protocol - Abdominal 96098 Limited Survey Single Organ or Quadrant - [id number] INDICATIONS: cirrhosis, HCC screening COMPARISON: US: Abdomen [...] who have questions, please contact the health client care representative that requested your imaging first. Que Tee, Staff Physician Electronically Signed Final Report 12/25/2022 09:01 am Mily Garcia MD IMG US GEN ORDERABLE S documented in this encounter Visit Diagnoses Diagnosis Hepatic cirrhosis, unspecified hepatic cirrhosis type, unspecified whether ascites present documented in this encounter Care Teams Guard Chief Relationship Specialty Start Date End Date Sanam Bennett APRN [address] [place] [address] PCP - General Family Medicine 09/06/22 documented as of this encounter
--- OUTSIDE RECORDS SUMMARY | 2024-04-27 01:25 | XMS_ITS | Encounter Summary ---
Author Organization [facility] [place] [address] Care Team Providers Care Sales And Service Associate Name Role Phone OrenSanam herring MERARI Primary Care Provider Encounter Details Date Type Department Care Team (Latest Contact Info) Description 12/18/2022 Travel Social History Tobacco Use Types Packs/Day [...] 09/17/2024 9:00 AM EST Appointment [place] [phone] Mily Garcia MD [facility] [place] [address] 09/17/2024 9:45 AM EST Laboratory Appointment Lab [address] [place] [phone] 09/17/2024 11:30 AM EST Office [place] [address] Mily Garcia MD [facility] [place] [address] documented as of this encounter Visit Diagnoses Not on filedocumented in this encounter Care Teams Sales And Service Associate Relationship Specialty Start Date End Date Sanam Bennett APRN [address] [place] [address] [address] [place] [address] PCP - General Family Medicine 09/06/22 documented as of this encounter
--- OUTSIDE RECORDS SUMMARY | 2024-04-27 01:25 | XMS_ITS | Encounter Summary ---
Author Organization [facility] [place] [address] Care Team Providers Care Dolly Pusher Name Role Phone Sanam Bennett MERARI Primary Care Provider Encounter Details Date Type Department Care Team (Latest Contact Info) Description 02/07/2024 10:10 AM EDT Laboratory Appointment Lab [address] [place] [phone] Hepatic cirrhosis, unspecified hepatic cirrhosis type, unspecified [...] 09/17/2024 9:00 AM [place] [phone] Mily Garcia MD [facility] [place] [address] 09/17/2024 9:45 AM EST Laboratory Appointment Lab [address] [place] [address] 09/17/2024 11:30 AM EST Office [place] [phone] Mily Garcia MD [facility] [place] [address] documented as of this encounter Procedures Procedure Name Priority Date/Time Associated Diagnosis Comments HEMOGRAM Routine 02/07/2024 10:06 AM EDT Hepatic cirrhosis, unspecified hepatic cirrhosis type, unspecified whether ascites present Autoimmune hepatitis DIFFERENTIAL, AUTOMATED Routine 02/07/20 24 10:06 AM [...] hepatitis documented in this encounter Results * Differential, Automated (02/07/2024 10:06 AM EDT) Neutrophils % 47.1 % [facility] Neutr Abs (ANC) 2.92 1.70 - 6.10 x10(3)/[facility] Lymphocytes % 38.0 % [facility] Lymphocytes Abs 2.4 0.9 - 3.2 x10(3)/[facility] Monocytes % 11.5 % [facility] Monocyte Abs 0.7 0.3 - 0.9 x10(3)/[facility] Eosinophils % 2.1 % [facility] Eosinophils Abs 0.1 0.0 - 0.4 x10(3)/[facility] Basophils % 1.0 % [facility] Basophils Abs 0.1 0.0 - 0.1 x10(3)/[facility]OR[facility] Immature Gran % 0.30 % [facility] Comment: Immature granulocytes(IG's)percentage and absolute count will include metamyelocytes, myelocytes, and promyelocytes. Blood smears from CBCs yielding IG's will be scanned manually for concordance. If this scan disagrees with the automated IG or if promyelocytes are noted, a manual differential will be performed. Yuliet Gran Abs 0.02 0.00 - 0.04 x10(3)/[facility] Blood 02/07/2024 10:0 6 AM EDT 02/07/2024 10:21 AM EDT Narrative Resulting Agency Comment Spec In Lab Mily Garcia MD HEMATOLOGY ORDERABLE S [facility] [place] [address] * Hemogram (02/07/2024 10:06 AM EDT) WBC 6.2 4.0 - 9.5 x10(3)/[facility] RBC 4.73 4.00 - 5.21 x10(6)/[facility] Hemoglobin 13.4 11.7 - 15.5 g/dL [facility] Hematocrit 40.8 35.7 - 45.8 % [facility] MCV 86.3 82.6 - 94.4 fL [facility] MCH 28.3 27.1 - 32.0 pg [facility] MCHC 32.8 31.7 - 35.0 g/dL [facility] Platelets 231 145 - 357 x10(3)/[facility] RDWSD 41.5 37.0 - 46.0 fL [facility] RDWCV 13.2 11.5 - 14.1 % [facility] MPV 10.6 7.6 - 12.9 fL [facility] nRBC % Auto 0.0 % [facility] nRBC Abs Auto 0.000 0.000 - 0.000 x10(3)/[facility] Blood 02/07/2024 10:0 6 AM EDT 02/07/2024 10:21 AM EDT Narrative Resulting Agency Comment Spec In Lab Mily Garcia MD HEMATOLOGY ORDERABLE S Performing Organization Address City/[facility]/ZIP Co de Phone Number [facility] [place] [address] * AFP tumor marker (02/07/2024 10:06 AM EDT) AFP 3.0 <=8.3 ng/mL [facility] Comment: This result was generated using a Radha Anshu immunoassay. ??Results obtained from other methods or manufacturers cannot be used interchangeably with this method. Blood 02/07/2024 10:0 6 AM EDT 02/07/2024 10:21 AM EDT Narrative Resulting Agency Comment Spec In Lab Mily Garcia MD CHEMISTRY ORDERABLES [facility] [place] [address] * Tissue transglutaminase, IgA (02/07/2024 10:06 AM EDT) TTG IgA Ab <0.4 <=10.0 u/ml [facility] Comment: Negative: ??<7 units/mL Indeterminate: 7-10 units/mL Positive: ??>10 units/mL Blood 02/07/2024 10:0 6 AM EDT 02/10/2024 7:34 AM EDT Narrative Resulting Agency Comment Spec In Lab Mily Garcia MD IMMUNOLOGY ORDERABLE S [facility] [place] [address] * (ABNORMAL) Comprehensive metabolic panel (non-fasting) (02/07/2024 10:06 AM EDT) [facility] Glucose Lvl 93 65 - 199 mg/dL [facility] Comment:Diabetes: >=200 mg/d L plus symptoms BUN 17 8 - 18 mg/dL [facility] Creatinine 0.63(L) 0.70 - 1.20 mg/dL [facility] Sodium 141 135 - 145 mmol/L [facility] Potassium 4.4 3.5 - 5.0 mmol/L [facility] Comment: Please note: ??Patients with WBC >100,000 may have falsely elevated Potassium levels. ??For accurate Potassium quantification in these patients send serum separator tube (gold top) for subsequent determinations. ??Contact the Clinical Chemistry Laboratory if there are any questions. Chloride 104 98 - 107 mmol/L [facility] CO2 26 22 - 31 mmol/L [facility] Anion Gap 11 5 - 15 mmol/L [facility] Calcium 9.1 8.5 - 10.5 mg/dL [facility] Total Protein 7.7 6.1 - 8.0 g/dL [facility] Albumin 4.4 3.2 - 5.2 g/dL [facility] AST 25 0 - 30 unit/L [facility] ALT 14 0 - 30 unit/L [facility] Alk Phos 83 35 - 105 unit/L [facility] Total Bilirubin 0.2 0.2 - 1.3 mg/dL [facility] Estimated GFR 97 >=60 mL/min/1. 73 m?? [facility] Comment: This patient's estimated GFR [...] Garcia MD CHEMISTRY ORDERABLES Performing Organization Address City/[facility]/ZIP Co de Phone Number [facility] [place] [address] * Prothrombin Time (02/07/2024 10:06 AM EDT) PT 11.8 9.4 - 12.5 sec [facility] INR 1.0 [facility] Comment: An INR <2.0 indicates [...] Lab Mily Garcia MD HEMATOLOGY ORDERABLE S [facility] [place] [address] documented in this encounter Visit Diagnoses Diagnosis Hepatic cirrhosis, unspecified hepatic cirrhosis type, unspecified whether ascites present Autoimmune hepatitis documented in this encounter Care Teams Dolly Pusher Relationship Specialty Start Date End Date Sanam BennettMERARI [address] [place] [address] PCP - General Family Medicine 09/06/22 documented as of this encounter
--- OUTSIDE RECORDS SUMMARY | 2024-04-27 01:25 | XMS_ITS | Encounter Summary ---
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 Gastroenterology and Hepatology Follow Up Note Patient: Genoveva Whiting : 1955 Provider: Mily Garcia MD Problem List: #Cirrhosis, secondary to AIH/DOHERTY - Liver biopsy 08/2022: The biopsy shows periportal/septal chronic inflammayion with plasma cell admixture. Foci of lobular chronic inflammation consisting predominantly of lymphocytes and histiocytes are also noted. Ucne-in-laywsufb steatosis is present. Trichrome stain highlights advanced [...] 25 35 (E) 33 (E) 30 (E) Interval History: She found the visit with measuring machine operator very helpful. She has expanded her diet (more fruits and veg). She denies GI bleeding, jaundice, and ascites. She has noted more issues with memory mainly with care home memory but also in her day to day. She reports frequent constipation. Current Outpatient Medications Medication Sig Dispense Refill omeprazole (PriLOSEC) 40 mg Capsule, Delayed Release(E.C.) Take 40 mg by mouth daily. predniSONE (Deltasone) 10 mg Tablet Take 4 tablets by mouth daily. (Patient taking differently: Take 20 mg by mouth daily.) 360 tablet 3 azaTHIOprine (Imuran) 50 mg Tablet Take 1 tablet by mouth daily. 90 tablet 3 doxepin (SINEquan) 10 mg Capsule FeroSuL 325 mg (65 mg iron) Tablet rOPINIRole (Requip) [address] (Cymbalta) 60 mg Capsule, Delayed Release(E.C.) ascorbic acid, vitamin C, (VITAMIN C) 500 mg Tablet, Chewable Take by mouth. esomeprazole (NEXIUM) 40 mg capsule Take 1 capsule by mouth 2 times daily. (Patient not taking: Reported on 10/09/2022) 180 capsule 3 LORazepam (ATIVAN) 1 mg tablet Take 1 mg by mouth nightly. pravastatin (PRAVACHOL) 40 mg tablet Take 40 mg by mouth daily. AMITRIPTYLINE HCL (AMITRIPTYLINE ORAL) Take 75 mg by mouth daily. DULOXETINE HCL (CYMBALTA ORAL) Take 60 mg by mouth daily. clobetasol (TEMOVATE) 0.05 % ointment Apply topically as needed. No current facility-administered medications for this visit. Vitals: 03/28/23 1036 BP: 132/66 BP Location ([facility]): Right arm Patient Position: Sitting BP Cuff Sizes: Adult (25-34 cm) Pulse: 58 Weight: 75 kg (165 lb 6.4 oz) Height: 154.9 cm (5' 1) Body mass index is 31.25 kg/m??. Exam: Looks well Assessment and Plan: #Cirrhosis, secondary to AIH/MASH Prior liver biopsy showed F3-4 fibrosis with feature of AIH and MASH. Recommend starting therapy for AIH (Prednisone 40 mg and azathioprine 50 mg daily). Follow up labs in 1 week with plan of weekly monitoring for the first month of therapy, followed by monitoring every 2 weeks. Discussed symptoms of hypersensitivity to AZA and to stop AZA if she has them. #At risk for HCC Reviewed recommendation of imaging every 6 months for HCC screening. Next due in 05/2023. Ultrasoundhas been ordered. #At risk for esophageal varices No varices on EUS in 08/2022, next EGD in 08/2024. #Celiac disease Normal small bowel biopsy 08/2022. Mily Garcia MD Section of Gastroenterology & Hepatology [address] [place] [address] Time spent reviewing records prior to this [...] 09/17/2024 9:00 AM EST [place] [phone] Mily Garcia MD [facility] [place] [address] 09/17/2024 9:45 AM EST Laboratory Appointment Lab [address] [place] [address] 09/17/2024 11:30 AM EST Office [place] [address] Mily Garcia MD [facility] [place] [address] Scheduled Orders Name Type Priority Associated Diagnoses Orde r Schedule CBC (with Diff) Lab Routine 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 ??Results obtained from other methods or manufacturers cannot be used interchangeably with this method. Blood 06/28/2023 9:24 AM EDT 06/28/2023 9:31 AM EDT Narrative Resulting Agency Comment Spec In Lab Mily Garcia MD CHEMISTRY ORDERABLES [facility] [place] [address] * US Abdomen Limited Hepatology Protocol (06/28/2023 [...] who have questions, please contact the health respiratory care specialist that requested your imaging first. ?Damian Almazan, Staff Physician Electronically Signed Final Report ?? 06/28/2023 09:20 am Narrative 06/28/2023 9:21 AM EDT Abdominal ? (Signed Final 06/28/2023 09:20 am) PATIENT INFO: ID #: ? [id number] ?: ??[birth year] (68 yrs)(F) Name: ? GENOVEVA Mila ?Visit Date: 06/28/2023 09:00 am ? KISHA PERFORMED BY: Attending: ?Damian Almazan MD Performed By: ? Stefania Thomas RDMS Referred By: ?MILY GARCIA Location: ? [facility] SERVICE(S) PROVIDED: [facility] - Hepatology Protocol - Abdominal ?38242 Limited Survey Single Organ or Quadrant - [id number] INDICATIONS: cirrhosis, HCC screening COMPARISON: US: Hepatology [...] 06/28/2023 09:20 am) PATIENT INFO: ID #: [id number] : [birth year] (68 yrs)(F) Name: GENOVEVA Zaragoza Visit Date: 06/28/2023 09:00 am KISHA PERFORMED BY: Attending: Damian Almazan MD Performed By: Stefania Thomas RDMS Referred By: MILY GARCIA Location: [facility] SERVICE(S) PROVIDED: [facility] - Hepatology Protocol - Abdominal 18874 Limited Survey Single Organ or Quadrant - [id number] INDICATIONS: cirrhosis, HCC screening COMPARISON: US: Hepatology [...] signed by: Damian Almazan MD, [facility] ([phone]), at 06/28/2023 9:14 AM Thank you for letting us participate in the care of this patient. If you are a health care provider and have any questions regarding this report, please contact the number above. For patients who have questions, please contact the health respiratory care specialist that requested your imaging first. 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
--- OUTSIDE RECORDS SUMMARY | 2024-04-27 01:25 | XMS_ITS | Encounter Summary ---
Author Organization [facility] [place] [address] Care Team Providers Care Lidder Name Role Phone Sanam Bennett MERARI Primary Care Provider Encounter Details Date Type Department Care Team (Latest Contact Info) Description 06/23/2023 Travel Social History Tobacco Use Types Packs/Day [...] 09/17/2024 9:00 AM [place] [phone] Mily Garcia MD [facility] [place] [address] 09/17/2024 9:45 AM EST Laboratory Appointment Lab [address] [place] [phone] 09/17/2024 11:30 AM EST Office [place] [address] Mily Garcia MD [facility] [place] [address] documented as of this encounter Visit Diagnoses Not on filedocumented in this encounter Care Teams Lidder Relationship Specialty Start Date End Date Sanam Bennett APRN [address] [place] [address] [address] [place] [address] PCP - General Family Medicine 09/06/22 documented as of this encounter
--- OUTSIDE RECORDS SUMMARY | 2024-04-27 01:25 | XMS_ITS | Encounter Summary ---
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 Rebeca Yoon APRN [facility] [place] [address] [facility] [place] [address] Referral ID Status Reason Start Date Expiration Date V isits Requested Visits Authorized [id number] Closed Continuity of Care 12/25/2022 12/25/2023 1 1 Encounter Details Date Type Department Care Team (Late st Contact Info) Description 12/25/2022 10:45 AM EDT [place] [phone] Rebeca Yoon APRN [facility] [place] [address] Autoimmune hepatitis; 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 [...] Sign Reading Time Taken Comments Blood Pressure 124/67 12/25/2022 11:20 AM EDT Pulse 61 12/25/2022 11:20 AM EDT Temperature - - Respiratory Rate - - Oxygen Saturation - - Inhaled Oxygen Concentration - - Weight 77.2 kg (170 lb 3.2 oz) 12/25/2022 11:20 AM EDT Height 154.9 cm (5' 1) 12/25/2022 11:20 AM EDT Body Mass Index 32.16 12/25/2022 11:20 AM EDT documented in this encounter Progress Notes * Rebeca Yoon, [employer] SYSTEMS ARCHITECT - 12/25/2022 10:45 AM EDT Gastroenterology and Hepatology Follow Up Note Patient: Genoveva Whiting : 1955 Provider: Mily Garcia MD Interval History: Ultrasound done today prior to our visit: 1. Normal size and echogenicity of the liver. No focal lesions. 2. Main portal vein is patent with hepatopetal flow. 3. No ascites. 4. Gallbladder is surgically absent. No biliary dilatation. ?? Prednisone-Stopped end of October. Quick taper as patient was not tolerating well-didn't feel well, weight gain, hunger. Seems to have been on steroids for about 5 weeks. Imuran 50 mg daily-no side effects noted. Imuran started Mid September 2022. No hb or reflux. Appetite-good. Rice, or yams. Chickens, and rice. She's eating chicken, and rice for breakfast, lunch, and dinner. She does have some fruit during the day as well. Brown rice three times a day. She found a diet online that she is going by rice, and yams for every meal. She is gluten free. Diagnosed with celiac disease when she was 40 yo. A few of her sisters also have Celiac disease. She had a normal duodenal biopsy recently Weight today 180 pounds-down a few pounds from her last check. She reports she had lost a few more pounds, but gained it back on steroids. Has some elena discomfort. Notices the pain mainly after she eats. This has been ongoing, and hasn't changed in frequency or severity recently. Bowels-Loose, no black stools, no obvious bleeding. She reports she is seeing a lot of rice in her stool, and wonders if this is normal. No fevers No fatigue No dark urine No pruritus No jaundice MELD-Na score: 7 at 12/25/2022 8:45 AM MELD score: 7 at 12/25/2022 8:45 AM Calculated from: Serum Creatinine: 0.59 mg/dL (Using min of 1 mg/dL) at 12/25/2022 8:45 AM Serum Sodium: 142 mmol/L (Using max of 137 mmol/L) at 12/25/2022 8:45 AM Total Bilirubin: 0.4 mg/dL (Using min of 1 mg/dL) at 12/25/2022 8:45 AM INR(ratio): 1.1 at 12/25/2022 8:45 AM Age: 67 years Latest Reference Range & Units 08/27/22 13:37 10/22/22 00:00 11/05/22 00:00 11/12/22 00:00 11/19/22 00:00 11/26/22 00:00 12/25/22 08:45 Alk Phos 35 - 105 unit/L 141 (H) 106 (E) 111 (E) 108 (E) 100 (E) 141 (E) 89 AST 0 - 30 unit/L 184 (H) 45 (E) 35 (E) 29 (E) 28 (E) 33 (E) 37 (H) ALT 0 - 30 unit/L 170 (H) 87 (E) 61 (E) 40 (E) 32 (E) 30 (E) 25 Problem List: #Cirrhosis, secondary to AIH/DOHERTY - Liver biopsy 08/2022: The biopsy shows periportal/septal chronic inflammayion with plasma cell admixture. ??Foci of lobular chronic inflammation consisting predominantly of lymphocytes and ??histiocytes are also noted. Ihrj-hl-wnmskxcz steatosis is present. Trichrome stain ??highlights advanced fibrosis with possible cirrhosis. ?Iron stain is negative. ??The ??findings are consistent with the pattern of chronic active hepatitis. ? Differential ??diagnosis includes ??chronic drug injury, autoimmune hepatitis and celiac disease, ??however the findings appear to be too advanced for celiac disease-associated ??hepatitis. - Reviewed at liver path 10/04/2022: F3-4 Current Outpatient Medications Medication Sig Dispense Refill ??? omeprazole (PriLOSEC) 40 mg Capsule, Delayed Release(E.C.) Take 40 mg by mouth daily. ??? predniSONE (Deltasone) 10 mg Tablet Take 4 tablets by mouth daily. (Patient taking differently:Take 20 mg by mouth daily.) 360 tablet 3 ??? azaTHIOprine (Imuran) 50 mg Tablet Take 1 tablet by mouth daily. 90 tablet 3 ??? doxepin (SINEquan) 10 mg Capsule ??? FeroSuL 325 mg (65 mg iron) Tablet ??? rOPINIRole (Requip) 1 mg Tablet ??? DULoxetine DR (Cymbalta) 60 mg Capsule, Delayed Release(E.C.) ??? ascorbic acid, vitamin C, (VITAMIN C) 500 mg Tablet, Chewable Take by mouth. ??? esomeprazole (NEXIUM) 40 mg capsule Take 1 capsule by mouth 2 times daily. (Patient not taking:Reported on 10/09/2022) 180 capsule 3 ??? LORazepam (ATIVAN) 1 mg tablet Take 1 mg by mouth nightly. ??? pravastatin (PRAVACHOL) 40 mg tablet Take 40 mg by mouth daily. ??? AMITRIPTYLINE HCL (AMITRIPTYLINE ORAL) Take 75 mg by mouth daily. ??? DULOXETINE HCL (CYMBALTA ORAL) Take 60 mg by mouth daily. ??? clobetasol (TEMOVATE) 0.05 % ointment Apply topically as needed. No current facility-administered medications for this visit. Vitals: 12/25/22 1120 BP: 124/67 BP Location ([facility]): Left arm Patient Position: Sitting BP Cuff Sizes: Adult (25-34 cm) Pulse: 61 Weight: 77.2 kg (170 lb 3.2 oz) Height: 154.9 cm (5' 1) Body mass index is 32.16 kg/m??. Exam: Alert, and oriented. Easily converses with this scientific technical writer. Comfortable wob in ra. Skin and sclera are nonicteric. No rashes on exposed skin. Normoactive bs x4. No ttp x 4. No lower extremity edema. Assessment and Plan: #Cirrhosis, secondary to AIH/DOHERTY -Has lost a few pounds since last seen. We again discussed treatment of DOHERTY is treating her modifiable risk factors, and metabolic syndrome. She is currently abiding by a very strict diet that involves rice, and yams only. We discussed this isn't necessarily a healthy diet either. We discussed incorporating protein, fruits, and veggies while still maintaining a gf diet. She needs further education here based on ongoing questions. I have referred her to our executive marketing assistant here at which I thinkwill be helpful for her. Total weight loss goal of somewhere around 15-20 pounds over a several month period. -Her AST has a bumped up a bit since last check while ALT shows mild improvement. We discussed a few different options-recheck in 2 weeks, increase imuran dose, or start budesonide as her previous steroid exposure was short 2/2 side effects. We have ultimately decided to recheck her labs in 2 weeks, and if rising will likely start budesonide. -Continue Imuran 50 mg daily. Discussed masking while out, thorough handwashing. We did discuss today that she needs to be followed by derm yearly for skin checks while on imuran. She does have a hx of basal cell carcinoma on her face per patient-last treated several years ago. Will check with Dr. Garcia regarding TPMT. #At risk for HCC -AFP, and U/S negative for HCC today. Plan for repeat in 6 months-May of 2023. #At risk for esophageal varices No varices on EUS in 08/2022, next EGD in 08/2024. #Diet -Reviewed diet goals (protein 100-120 g per day and calories 9905-7939 kCal per day). -Reviewed dietary sources of protein today. High Protein foods: try to eat 5-6 servings of these per day Beef, chicken, fish Beans, Lentils, peanut butter Botswanan and regular yogurt Cheese, eggs Boost, Ensure shakes Protein powder in a smoothie of your choice. Granola bars with added protein-watch salt. #Celiac disease -Normal small bowel biopsy 08/2022. -Continue strict gluten free diet. Rebeca Yoon APRN Section of Gastroenterology & Hepatology [address] [place] [address] Time spent reviewing records prior to this [...] 09/17/2024 9:00 AM [place] [address] Mily Garcia MD [facility] [place] [address] 09/17/2024 9:45 AM EST Laboratory Appointment Lab [address] [place] [phone] 09/17/2024 11:30 AM EST Office [place] [address] Mily Garcia MD [facility] [place] [address] Scheduled Referrals Name Type Priority Associated Diagnoses Orde r Schedule Referral to Nutrition Services Outpatient Referral Routine Autoimmune hepatitis 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 Ordered: 12/25/2022 documented as of this encounter Results * (ABNORMAL) Prothrombin Time (06/28/2023 9:24 AM EDT) PT 12.9(H) 9.4 - 12.5 sec [facility] INR 1.1 [facility] Comment: An INR <2.0 indicates [...] Agency Comment Spec In Lab Rebeca Yoon [employer] ARCHITECT HEMATOLOGY ORDERAB LES [facility] [place] [address] * (ABNORMAL) Comprehensive metabolic panel (non-fasting) (06/28/2023 9:24 AM EDT) Glucose Lvl 104 65 - 199 mg/dL [facility] Comment:Diabetes: >=200 mg/d L plus symptoms BUN 29(H) 8 - 18 mg/dL [facility] Creatinine 0.75 0.70 - 1.20 mg/dL [facility] Sodium 140 135 - 145 mmol/L [facility] Potassium 4.9 3.5 - 5.0 mmol/L [facility] Comment: Please note: ??Patients with WBC >100,000 may have falsely elevated Potassium levels. ??For accurate Potassium quantification in these patients send serum separator tube (gold top) for subsequent determinations. ??Contact the Clinical Chemistry Laboratory if there are any questions. Chloride 103 98 - 107 mmol/L [facility] CO2 27 22 - 31 mmol/L [facility] Anion Gap 10 5 - 15 mmol/L [facility] Calcium 9.4 8.5 - 10.5 mg/dL [facility] Total Protein 7.9 6.1 - 8.0 g/dL [facility] Albumin 4.4 3.2 - 5.2 g/dL [facility] AST 21 0 - 30 unit/L [facility] ALT 14 0 - 30 unit/L [facility] Alk Phos 87 35 - 105 unit/L [facility] Total Bilirubin 0.3 0.2 - 1.3 mg/dL [facility] Estimated GFR 87 >=60 mL/min/1. 73 m?? 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
--- OUTSIDE RECORDS SUMMARY | 2024-04-27 01:25 | XMS_ITS | Encounter Summary ---
Author Organization [facility] Address [facility] [place] [address] Care Team Providers Care Motel Operator Name Role Phone Sanam Bennett APRN Primary Care Provider Encounter Details Date Type Department Care Team (Late st Contact Info) Description 10/30/2022 [place] [phone] Mily Garcia MD [facility] [place] [address] Social History Tobacco Use Types Packs/Day Years [...] 09/17/2024 9:00 AM [place] [phone] Mily Garcia MD [facility] [place] [address] 09/17/2024 9:45 AM EST Laboratory Appointment Lab [address] [place] [address] 09/17/2024 11:30 AM EST Office [place] [phone] Mily Garcia MD [facility] [place] [address] documented as of this encounter Visit Diagnoses Not on filedocumented in this encounter Care Teams Motel Operator Relationship Specialty Start Date End Date Sanam Bennett APRN [address] [place] [address] PCP - General Family Medicine 09/06/22 documented as of this encounter
--- OUTSIDE RECORDS SUMMARY | 2024-04-27 01:25 | XMS_ITS | Encounter Summary ---
Author Organization [facility] [place] [address] Care Team Providers Care Mannequin Mounter Name Role Phone OrenSanam herring MERARI Primary Care Provider Encounter Details Date Type Department Care Team (Latest Contact Info) Description 05/02/2023 Travel Social History Tobacco Use Types Packs/Day [...] 09/17/2024 9:00 AM [place] [phone] Mily Garcia MD [facility] [place] [address] 09/17/2024 9:45 AM EST Laboratory Appointment Lab [address] [place] [phone] 09/17/2024 11:30 AM EST Office [place] [address] Mily Garcai MD [facility] [address] documented as of this encounter Visit Diagnoses Not on filedocumented in this encounter Care Teams Mannequin Mounter Relationship Specialty Start Date End Date Sanam Bennett APRN [address] [place] [address] [address] [place] [address] PCP - General Family Medicine 09/06/22 documented as of this encounter
--- OUTSIDE RECORDS SUMMARY | 2024-04-27 01:25 | XMS_ITS | Encounter Summary ---
Author Organization [facility] [place] [address] Care Team Providers Care Software Test Analyst Name Role Phone Sanam Bennett APRN Primary Care Provider [phone] Reason for Referral * Consultation (Routine) - Closed Specialty Diagnoses / Procedures Referred By Gabrielle graves Referred To Contact Dermatology Diagnoses Hx of basal cell carcinoma Sanam Bennett APRN [address] [place] [address] [facility] Dermatology [address] [place] [address] Referral ID Status Reason Start Date Expiration Date V isits Requested Visits Authorized [id number] Closed Consult, Test & Treat PCP Updated and/or Approved 02/06/2023 02/06/2024 6 6 Encounter Details Date Type Department Care Team (Late st Contact Info) Description 02/06/2023 Transcribe Orders eDH Incoming Referrals [phone] Sanam Bennett APRN [address] [place], [place] [address] Hx of basal cell carcinoma Social History Tobacco Use Types Packs/Day Years [...] 09/17/2024 9:00 AM EST [place] [address] Mily Garcia MD [facility] [place] [address] 09/17/2024 9:45 AM EST Laboratory Appointment Lab [address] [place] [phone] 09/17/2024 11:30 AM EST Office [place] [address] Mily Garcia MD [facility] [place] [address] Scheduled Referrals Name Type Priority Associated Diagnoses Order Schedule Referral to Dermatology Outpatient Referral Routine Hx of basal cell carcinoma Ordered: 02/06/2023 documented as of this encounter Visit Diagnoses Diagnosis Hx of basal cell carcinoma Personal history of other malignant neoplasm of skin documented in this encounter Care Teams Software Test Analyst Relationship Specialty Start Date End Date Sanam Bennett APRN [address] [place] [address] [address] [place] [address] PCP - General Family Medicine 09/06/22 documented as of this encounter
--- OUTSIDE RECORDS SUMMARY | 2024-04-27 01:25 | XMS_ITS | Encounter Summary ---
Author Organization [facility] Address [facility] [place] [address] Care Team Providers Care Business Instructor Name Role Phone Sanam Bennett APRN Primary Care Provider [phone] Encounter Details Date Type Department Care Team (Late st Contact Info) Description 10/23/2022 External Results [place]ology [place] [phone] Mily Garcia MD [facility] [place] [address] Social History Tobacco Use Types Packs/Day Years [...] 09/17/2024 9:00 AM EST Appointment [place] [address] Mily Garcia MD [facility] [address] 09/17/2024 9:45 AM EST Laboratory Appointment Lab [address] [place] [address] 09/17/2024 11:30 AM EST Office Visit G[place]ology [place] [phone] Mily Garcia MD [facility] [place] [address] documented as of this encounter Procedures Procedure Name Priority Date/Time Associated Diagnosis Comments EXTERNAL LAB CBC CMP THYROID RESULTS PANEL Routine 10/22/2022 documented in this encounter Results * CBC / CMP / Thyroid External Results (10/22/2022) WBC 13.23 RBC 5.12 Hemoglobin 14.7 Hematocrit 43.8 MCV 86.0 Platelets 296 Sodium 135 Potassium 4.1 Chloride 98 CO2 31 BUN 17 Creatinine 1.0 Estimated GFR 61.75 Glucose Lvl 145 Calcium 9.0 Total Protein 9.1 Albumin 3.9 Total Bilirubin 0.6 Alk Phos 106 AST 45 ALT 87 Historical Provider POINT OF CARE MARLENE T ORDERABLES documented in this encounter Visit Diagnoses Not on filedocumented in this encounter Care Teams Business Instructor Relationship Specialty Start Date End Date OrennimaMandySanamMERARI solares [address] [place] [address] PCP - General Family Medicine 09/06/22 documented as of this encounter
--- OUTSIDE RECORDS SUMMARY | 2024-04-27 01:25 | XMS_ITS | Encounter Summary ---
Author [facility] [place] [address] Care Team Providers Care Trainmaster Name Role Phone Sanam Bennett APRN Primary Care Provider [phone] Encounter Details Date Type Department Care Team (Late st Contact Info) Description 11/05/2022 External [place] [phone] Analy [place], RAÚL Social History Tobacco Use [...] 09/17/2024 9:00 AM [place] [phone] Mily Garcia MD [facility] [place] [address] 09/17/2024 9:45 AM EST Laboratory Appointment Lab [address]L [place] [address] 09/17/2024 11:30 AM EST Office [place] [address] Mily Garcia MD [facility] [place] [address] documented as of this encounter Procedures Procedure Name Priority Date/Time Associated Diagnosis Comments EXTERNAL LAB CBC CMP THYROID RESULTS PANEL Routine 11/05/2022 documented in this encounter Results * CBC / CMP / Thyroid External Results (11/05/2022) WBC 12.42 EXTERNAL LAB RBC 5.34 EXTERNAL LAB Hemoglobin 15.4 EXTERNAL LAB Hematocrit 46.8 EXTERNAL LAB MCV 88.0 EXTERNAL LAB Platelets 194 EXTERNAL LAB Sodium 136 EXTERNAL LAB Potassium 4.0 EXTERNAL LAB Chloride 100 EXTERNAL LAB CO2 29 EXTERNAL LAB BUN 13 EXTERNAL LAB Creatinine 0.9 EXTERNAL LAB Estimated GFR 70 EXTERNAL LAB Glucose Lvl 122 EXTERNAL LAB Calcium 8.7 EXTERNAL LAB Total Protein 8.3 EXTERNAL LAB Albumin 3.8 EXTERNAL LAB Total Bilirubin 0.5 EXTERNAL LAB Alk Phos 111 EXTERNAL LAB AST 35 EXTERNAL LAB ALT 61 EXTERNAL LAB 11/05/2022 Historical Provider POINT OF CARE MARLENE T ORDERABLES EXTERNAL LAB documented in this encounter Visit Diagnoses Not on filedocumented in this encounter Care Teams Trainmaster Relationship Specialty Start Date End Date Sanam Bennett APRN [address] [place] [address] PCP - General Family Medicine 09/06/22 documented as of this encounter
--- OUTSIDE RECORDS SUMMARY | 2024-04-27 01:25 | XMS_ITS | Encounter Summary ---
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 Gastroenterology and Hepatology Follow Up Note Patient: Genoveva Whiting : 1955 Provider: Mily Garcia MD Problem List: #Cirrhosis, secondary to AIH/DOHERTY - Liver biopsy 08/2022: The biopsy shows periportal/septal chronic inflammayion with plasma cell admixture. Foci of lobular chronic inflammation consisting predominantly of lymphocytes and histiocytes are also noted. Gpos-tg-mbyokivi steatosis is present. Trichrome stain highlights advanced [...] Latest Reference Range & Units 06/28/23 09:24 02/07/24 10:06 Total Bilirubin 0.2 - 1.3 mg/dL 0.3 0.2 Alk Phos 35 - 105 unit/L 87 83 AST 0 - 30 unit/L 21 25 ALT 0 - 30 unit/L 14 14 #At risk for HCC - U/S 06/28/2023 negative for HCC - U/S 02/07/2024 negative for HCC #At risk for esophageal varices - EGD/EUS negative for varices 08/2022 Interval History: No jaundice, ascites, HE, or GI bleeding. Current Outpatient Medications Medication Sig Dispense Refill azaTHIOprine (Imuran) 50 mg tablet Take 1 tablet by mouth daily. 90 tablet 1 MILK THISTLE ORAL Take 1,000 mg by mouth daily. multivitamin (THERAGRAN) Tablet Take 1 tablet by mouth daily. Centrum Silver omeprazole (PriLOSEC) 40 mg Capsule, Delayed Release(E.C.) Take 40 mg by mouth daily. doxepin (SINEquan) 10 mg Capsule rOPINIRole (Requip) 1 mg Tablet Take 2 mg by mouth nightly. DULoxetine DR (Cymbalta) 60 mg Capsule, Delayed Release(E.C.) pravastatin (PRAVACHOL) 40 mg tablet Take 40 mg by mouth daily. clobetasol (TEMOVATE) 0.05 % ointment Apply topically as needed. No current facility-administered medications for this visit. Exam: Looks well Assessment and Plan: #Cirrhosis, secondary to AIH/MASH Prior liver biopsy showed F3-4 fibrosis with feature of AIH and MASH. Continue on AZA 50 mg daily. Next labs in 3 months. Labs and visit in 6 months. #At risk for HCC Reviewed recommendation of imaging every 6 months for HCC screening. Next due in 07/2024. Ultrasound has been ordered. #At risk for esophageal varices No varices on EUS in 08/2022. Fibroscan at next visit. #Celiac disease Normal small bowel biopsy 08/2022. Mily Garcia MD Section of Gastroenterology & Hepatology [address] [place] [address] Time spent reviewing records prior to this [...] 09/17/2024 9:00 AM [place] [address] Mily Garcia MD [facility] [place] [address] 09/17/2024 9:45 AM EST Laboratory Appointment Lab [address] [place] [address] 09/17/2024 11:30 AM EST Office [place] [phone] Mily Garcia MD [facility] [place] [address] Scheduled Orders Name Type Priority Associated Diagnoses Orde r Schedule CBC (with Diff) Lab Routine Autoimmune hepatitis 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 Expected: 08/09/2024 (Approximate), Expires: 02/08/2025 Comprehensive metabolic panel (non-fasting) Lab Routine Autoimmune hepatitis 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 Expected: 08/09/2024 (Approximate), Expires: 02/08/2025 Prothrombin Time Lab Routine Autoimmune hepatitis 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 Expected: 08/09/2024 (Approximate), Expires: 02/08/2025 AFP tumor marker Lab Routine Autoimmune hepatitis 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 Expected: 08/09/2024 (Approximate), Expires: 02/08/2025 US Abdomen Limited Hepatology Protocol Imaging Routine Autoimmune hepatitis 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
--- OUTSIDE RECORDS SUMMARY | 2024-04-27 01:26 | XMS_ITS | Encounter Summary ---
Author Organization [facility] [place] [address] Care Team Providers Care Care Program Resident Name Role Phone Alireza Ojeda DO Primary Care Provider Reason for Visit * Reason Comments Procedure Encounter Details Date Type Department Care Team (Latest Contact Info) Description 03/13/2019 3:00 PM EDT Procedure [place] [address] Ricky Abad MD [facility] [place] [address] PCO (posterior capsule opacification), bilateral Social History Tobacco Use Types Packs/Day Years Used Date Smoking Tobacco: Never Smokeless Tobacco: Never Alcohol Use Standard Drinks/Week Comments No 0 (1 standard drink = 0.6 oz pur e alcohol) Sex and Gender Information Value Date Recorded Sex Assigned at Female 05/02/2023 5:23 PM EDT Gender Identity Female 05/02/2023 5:23 PM EDT Sexual Orientation Straight 05/02/2023 5: 23 PM EDT documented as of this encounter Progress Notes * Ricky Abad MD - 03/13/2019 3:00 PM EDT Capsulotomy right eye documented in this encounter Plan of Treatment Upcoming Encounters Date Type Department Care Team (Late st Contact Info) Description 09/17/2024 9:00 AM EST [place] [address] Mily Garcia MD [facility] DR [place] [address] 09/17/2024 9:45 AM EST Laboratory Appointment Lab [address] [place] [phone] 09/17/2024 11:30 AM EST Office [place] [address] Mily Garcia MD [facility] [address] [place] [address] documented as of this encounter Procedures Procedure Name Priority Date/Time Associated Diagnosis Comments CAPSULOTOMY-YAG LASER - OD - RIGHT EYE Routine 03/13/2019 3:25 PM EDT PCO (posterior capsule opacification), bilateral documented in this encounter Results * Capsulotomy - Yag Laser - OD - Right Eye (03/13/2019 3:25 PM EDT) Anatomical Region Laterality Modality Other Narrative 03/13/2019 3:25 PM EDT Pre-Op Patient understands the risks and benefits of the treatment as outlined on the consent. Anesthesia Topical anesthesia was used. Anesthesia medications included Proparacaine. Laser Information Total spots was 56. The energy was 146 mj. Post-op The patient tolerated the procedure well. There were no complications. Notes Procedure: Yag Capsulotomy ??right eye Diagnosis: Opacified posterior lens capsule Location of procedure: [facility] eye clinic Surgeon: Ricky Abad Preprocedure drops: 1 drop of each alcaine, 0.5% iopidine, Pred forte Indication: The patient is status post cataract surgery in the operative eye and developed posterior capsular opacity limiting their vision and producing glare. ??The decision was made to try to improve their vision with YAG capsulotomy. ??We discussed the risks, benefits and alternatives to this treatment, answered Genoveva's questions and she signed the consent form. Procedure: ??The patient was taken to the laser room. ??A YAG capsulotomy was performed. ??The patient tolerated the procedure well and there were no problems observed during the procedure. Spot number: 56 Total energy:146 millijoules Post operative instructions: ??Continue all current eye drops. They are scheduled for follow up within 2 to 3 weeks, but are to call in with any problems, particularly flashes, floaters, pain, decreased vision or photophobia. Caution with driving Upon Return to Eye Clinic: IOP OU MR in eye status post YAG Ricky Abad MD OPHTHALMOLOGY SERVIC ES ORDERABLES documented in this encounter Visit Diagnoses Diagnosis PCO (posterior capsule opacification), bilateral documented in this encounter Care Teams Care Program Resident Relationship Specialty Start Date End Date Alireza Ojeda DO [address] [place] [address] PCP - General 07/16/11 09/05/22 documented as of this encounter
--- OUTSIDE RECORDS SUMMARY | 2024-04-27 01:26 | XMS_ITS | Encounter Summary ---
Author Organization [facility] Address [facility] [place] [address] Care Team Providers Care Machine Or Machinery Mechanic Name Role Phone Alireza Ojeda DO Primary Care Provider Reason for Visit * Reason Comments Pseudophakia * Consultation (Routine) - Specialty Diagnoses / Procedures Referred By Gabrielle graves Referred To Contact Ophthalmology Diagnoses Randall Glez, OD [address] [place] [address] Ricky Abad MD [facility] [address] Referral ID Status Reason Start Date Expiration Date V isits Requested Visits Authorized [id number] Consult, Test & Treat PCP Updated and/or Approved 12/18/2018 12/18/2019 1 1 Encounter Details Date Type Department Care Team (Late st Contact Info) Description 03/13/2019 1:45 PM EDT Office [place] [address] Ricky Abad MD [facility] [address] PCO (posterior capsule opacification), bilateral Social History [...] Notes * Ricky Abad MD - 03/13/2019 1:45 PM EDT PCO OU: Dense OU, visually significant Pseudophakia OU: Observe Plan: YAG Cap OD today R/b/a discussed RTC 1 week for YAG Cap left eye documented in this encounter Plan of Treatment Upcoming Encounters Date Type Department Care Team (Late st Contact Info) Description 09/17/2024 9:00 AM EST Appoint[place] [address] Mily Garcia MD [facility] [place] [address] 09/17/2024 9:45 AM EST Laboratory Appointment Lab [address] [place] [address] 09/17/2024 11:30 AM EST Office [place] [address] Mily Garcia MD [facility] [place] [address] documented as of this encounter Visit Diagnoses Diagnosis PCO (posterior capsule opacification), bilateral documented in this encounter Care Teams Machine Or Machinery Mechanic Relationship Specialty Start Date End Date Alireza Ojeda DO [address] [place] [address] PCP - General 07/16/11 09/05/22 documented as of this encounter
--- OUTSIDE RECORDS SUMMARY | 2024-04-27 01:26 | XMS_ITS | Encounter Summary ---
Author Organization [facility] [place] [address] Care Team Providers Care Key Punch Operator Name Role Phone Alireza Ojeda DO Primary Care Provider [phone] Reason for Visit * Reason Comments Skin Check Encounter Details Date Type Department Care Team (Late st Contact Info) Description 07/16/2011 10:45 AM EDT Office Visit Dermatology [address] [place] [address] [address] [place] [address] Sergo Valle MD [address] [place] [address], [facility] [place] [address] History of basal cell carcinoma (Primary Dx) Social History Tobacco Use Types Packs/Day Years Used Date Smoking Tobacco: Never Sex and Gender Information Value Date Recorded Sex Assigned at Female 05/02/2023 5:23 PM EDT Gender Identity Female 05/02/2023 5:23 PM EDT Sexual Orientation Straight 05/02/2023 5: 23 PM EDT documented as of this encounter Progress Notes * Sergo Valle MD - 07/16/2011 11:17 AM EDT Problems: 1. One-year skin checkup. 2. History of BCCa(s): right forehead, right tip of nose, left shoulder, right lateral eyebrow previously treated in [place]. 3. History of BCCa, right medial cheek, 07/2009 per [facility]. Rosalinda follows for a yearly skin checkup. [...] 09/17/2024 9:00 AM [place] [address] Mily Garcia MD [facility] [place] [address] 09/17/2024 9:45 AM EST Laboratory Appointment Lab [address] [place] [address] 09/17/2024 11:30 AM EST Office [place] [address] Mily Garcia MD [facility] [place] [address] documented as of this encounter Visit Diagnoses Diagnosis History of basal cell carcinoma- Primary Personal history of other malignant neoplasm of skin documented in this encounter Care Teams Key Punch Operator Relationship Specialty Start Date End Date Alireza Ojeda DO [address] [place] [address] PCP - General 07/16/11 09/05/22 documented as of this encounter
--- OUTSIDE RECORDS SUMMARY | 2024-04-27 01:26 | XMS_ITS | Encounter Summary ---
Author Organization [facility] [place] [address] Care Team Providers Care High School Admissions Representative Name Role Phone Alireza Ojeda DO Primary Care Provider [phone] Reason for Visit * Reason Comments Posterior Capsule Opacification s/p Yag Caps OD 03/13/2019, OS 03/20/19 Encounter Details Date Type Department Care Team (Late st Contact Info) Description 04/17/2019 4:00 PM EDT [place] [address] Ricky Abad MD [facility] [place] [address] S/P YAG capsulotomy, left Social History Tobacco Use Types Packs/Day Years [...] Progress Notes * Ricky Abad MD - 04/17/2019 4:00 PM [...] 09/17/2024 9:00 AM EST [place] [address] Mily Garcia MD [facility] [place] [address] 09/17/2024 9:45 AM EST Laboratory Appointment Lab [address] [place] [address] 09/17/2024 11:30 AM EST Office [place] [address] Mily Garcia MD [facility] [place] [address] documented as of this encounter Visit Diagnoses Diagnosis S/P YAG capsulotomy, left documented in this encounter Care Teams High School Admissions Representative Relationship Specialty Start Date End Date Alireza Ojeda DO [address] [place] [address] PCP - General 07/16/11 09/05/22 documented as of this encounter
--- OUTSIDE RECORDS SUMMARY | 2024-04-27 01:26 | XMS_ITS | Encounter Summary ---
Author Organization [facility] [place] [address] Care Team Providers Care Veneer Drier Tailer Name Role Phone Alireza Ojeda DO Primary Care Provider Reason for Visit * Reason Onset Date Comments Medication Refill 05/25/2013 Encounter Details Date Type Department Care Team (Late st Contact Info) Description 05/25/2013 Refill [place] [address] Jo-Ann Grubbs APRN [facility] [place] [address] Social History Tobacco Use Types Packs/Day Years [...] 09/17/2024 9:00 AM EST [place] [address] Mily Garcia MD [facility] [place] [address] 09/17/2024 9:45 AM EST Laboratory Appointment Lab [address] [place] [address] 09/17/2024 11:30 AM EST Office [place] [address] Mily Garcia MD [facility] [place] [address] documented as of this encounter Visit Diagnoses Not on filedocumented in this encounter Care Teams Veneer Drier Tailer Relationship Specialty Start Date End Date Alireza Ojeda DO [address] [place] [address] PCP - General 07/16/11 09/05/22 documented as of this encounter
--- OUTSIDE RECORDS SUMMARY | 2024-04-27 01:26 | XMS_ITS | Encounter Summary ---
Author Organization [facility] Address [facility] [place] [address] Care Team Providers Care Assisted Living Care Manager Name Role Phone Alireza Ojeda DO Primary Care Provider [phone] Encounter Details Date Type Department Care Team (Latest Contact Info) Description 07/10/2013 9:07 AM EDT - 07/10/2013 11:59 PM EDT Hospital Encounter [place] [address] CLINIC, Michael Kamara MD [facility] [address] [place]STR[place] [address] GERD (gastroesophageal reflux disease) Discharge Disposition: Home Social History Tobacco Use Types Packs/Day Years Used Date Smoking Tobacco: Never Alcohol Use Standard Drinks/Week Comments [...] Sig Dispensed Refills Start Date End Date pravastatin (PRAVACHOL) 40 mg tablet Take 40 mg by mouth daily. clobetasol (TEMOVATE) 0.05 % ointment Apply topically as needed. esomeprazole (NEXIUM) 40 mg capsule Take 1 capsule by mouth daily. 90 capsule 3 05/25/2013 10/07/2013 LORazepam (ATIVAN) 1 mg tablet Take 1 mg by mouth nightly. 02/07/2024 sucralfate (CARAFATE) 1 gram tablet Take 1 g by mouth 4 times daily. Before meals and at bedtime 10/06/2013 LACTOBACILLUS ACIDOPHILUS (PROBIOTIC ORAL) Take 1 tablet by mouth daily. 10/06/2013 dexlansoprazole (DEXILANT) 60 mg CpDM Take 1 capsule by mouth 2 times daily. 60 capsule 11 05/06/2013 10/06/2013 losartan (COZAAR) 50 mg tablet Take 50 mg by mouth daily. 10/06/2013 AMITRIPTYLINE HCL (AMITRIPTYLINE ORAL) Take 75 mg by mouth daily. 02/07/2024 DICLOFENAC POTASSIUM ORAL Take 50 mg by mouth 2 times daily. 10/06/2013 DULOXETINE HCL (CYMBALTA ORAL) Take 60 mg by mouth daily. 02/07/2024 documented as of this encounter Plan of Treatment Upcoming Encounters Date Type Department Care Team (Late st Contact Info) Description 09/17/2024 9:00 AM EST Appointment [place] [address] Mily Garcia MD [facility] [place] [address] 09/17/2024 9:45 AM EST Laboratory Appointment Lab [address] [place] [id number] 09/17/2024 11:30 AM EST Office Visit [place] [address] Mily Garcia MD [facility] [place] [address] documented as of this encounter Procedures Procedure Name Priority Date/Time Associated Diagnosis Comments NM GASTRIC EMPTYING SCAN Routine 07/10/2013 12:35 PM EDT GERD (gastroesophageal reflux disease) documented in this encounter Results * NM gastric emptying scan (07/10/2013 12:35 PM EDT) Anatomical Region Laterality Modality Other 07/10/2013 12:3 5 PM EDT Narrative 07/10/2013 1:22 PM EDT Examination GASTRIC EMPTYING SCAN Clinical History dyspepsia sx ?gastroparesis Comparison None ?? Technique A standard meal was labeled with 0.5 mCi of technetium-99m sulfur colloid and ingested. Images of the stomach were obtained in the anterior and posterior projections immediately thereafter and one, two and four hours later. Findings Activity fills the stomach in the initial image. Small bowel is visible at one hour. There is minimal activity present in the stomach at three hours. Quantitative Analysis Two hours: 49% remains in the stomach (normal <60%) 3 hours: 1% remains in the stomach (normal <10%) Impression Normal gastric emptying. Procedure Note Shane Rodríguez MD - 07/10/2013 Examination GASTRIC EMPTYING SCAN Clinical History dyspepsia sx ?gastroparesis Comparison None Technique A standard meal was labeled with 0.5 mCi of technetium-99m sulfur colloidand ingested. Images of the stomach were obtained in the anterior andposterior projections immediately thereafter and one, two and four hours later. Findings Activity fills the stomach in the initial image. Small bowel is visible atone hour. There is minimal activity present in the stomach at three hours. Quantitative Analysis Two hours: 49% remains in the stomach (normal <60%) 3 hours: 1% remains in the stomach (normal <10%) Impression Normal gastric emptying. Michael Garcia MD IMG NM ORDERABLES documented in this encounter Visit Diagnoses Diagnosis GERD (gastroesophageal reflux disease) Esophageal reflux documented in this encounter Care Teams Assisted Living Care Manager Relationship Specialty Start Date End Date Alireza Ojeda DO [address] [place] [address] PCP - General 07/16/11 09/05/22 documented as of this encounter
--- OUTSIDE RECORDS SUMMARY | 2024-04-27 01:26 | XMS_ITS | Encounter Summary ---
Author Organization [facility] [place] [address] Care Team Providers Care Bioinformatics Specialist Name Role Phone Sanam Bennett APRN Primary Care Provider Encounter Details Date Type Department Care Team (Late st Contact Info) Description 08/24/2009 Orders Only Dermatology at [place] [address] [facility] [place] [address] Sergo Valle MD [address] [facility], [facility] [place] [address] Social History Tobacco Use Types Packs/Day Years Used Date Smoking Tobacco: Never Assessed Sex and Gender Information Value Date Recorded Sex Assigned at Female 05/02/2023 5:23 PM EDT Gender Identity Female 05/02/2023 5:23 PM EDT Sexual Orientation Straight 05/02/2023 5: 23 PM EDT documented as of this encounter Plan of Treatment Upcoming Encounters Date Type Department Care Team (Late st Contact Info) Description 09/17/2024 9:00 AM EST Appointment [place] [address] Miyl Garcia MD [facility] [place] [address] 09/17/2024 9:45 AM EST Laboratory Appointment Lab [address] [place] [address] 09/17/2024 11:30 AM EST Office Visit [place] [address] Mily Garcia MD [facility] [place] [address] documented as of this encounter Procedures Procedure Name Priority Date/Time Associated Diagnosis Comments SURGICAL PATHOLOGY REPORT Routine 08/24/2009 6:07 PM EST documented in this encounter Results * Surgical Pathology Report (08/24/2009 6:07 PM EST) Surgical Pathology Report [id number] ? Location: [facility] The signing pathologist has (i) examined the relevant preparation(s) for the specimen(s) and (ii) rendered or confirmed the diagnosis(es). . ?Pathology Surgical Pathology Final Report Clinical Information Specimen Submitted: A - (R) medial cheek, Shave: B - (R) lower back, 4-mm Punch: Clinical History: A - BCC, treated with shave C&D B - 8-9-yr hx of rough papules/patches on lower back and legs Clinical Diagnosis: A - BCC B - Psoriasis Report to: Sergo Valle MD, III [facility] Dermatology [place], [place] ??[address] Gross Description A - Labeled/Fixative: A - R medial cheek, formalin. Qty/Size/Weight: ?Single shave, 0.7 cm, white. Sections/Processi ng: ??Trisected. ??(T1) B - Labeled/Fixative: R lower back, formalin. Qty/Size/Weight: ?Two punch, 0.4 cm on average, de jesus skin. Sections/Processi ng: ??Bisected. ??(T1) ??aje/SNS Microscopic Description Slides reviewed, microscopic description not recorded. Diagnosis A - Skin, (R) medial cheek, shave biopsy: ?Basal cell carcinoma. B - Skin, (R) lower back, shave biopsy: ?Mild acanthosis and spongiosis with parakeratosis containing ?neutrophils, dense ?? superficial perivascular lymphocytic infiltrate ?(see Comment). CR-0 08/28/09 SY 08/29/09 Verified by: ? Varun GO, PhD, [facility] ?Dermatopatholog ist ?(Electronic Signature) The attending pathologist whose signature appears on this report has reviewed all diagnostic slides and has edited the gross and/or microscopic portion of the report in rendering the final pathologic diagnosis. . Comment B (right lower back)- No fungi are seen in PAS-reacted sections. The histologic differential diagnosis includes spongiotic/eczema tous dermatitis and psoriasis. ??Clinicopatholog ic correlation is recommended. ?? Drs. Naun, Jordy and Artemio have reviewed this case and concur with this diagnosis. TATYANA WARE 08/24/2009 6:07 PM EST Sergo Valle MD PATHOLOGY/CYTOLOGY O KARI Performing Organization Address City/State/[facility] Co de Phone Number TATYANA WARE documented in this encounter Visit Diagnoses Not on filedocumented in this encounter Care Teams Bioinformatics Specialist Relationship Specialty Start Date End Date Sanam Bennett ADMITTING MANAGER [address] [place] [address] PCP - General Family Medicine 09/06/22 documented as of this encounter
--- OUTSIDE RECORDS SUMMARY | 2024-04-27 01:26 | XMS_ITS | Encounter Summary ---
Author Organization [facility] [place] [address] Care Team Providers Care Ocean Import Representative Name Role Phone Sanam Bennett MERARI Primary Care Provider [phone] Reason for Visit * Auth/Cert (Routine) Specialty Diagnoses / Procedures Referred By Gabrielle graves Referred To Contact Diagnoses Abnormal levels of other serum enzymes Nonalcoholic steatohepatitis (DOHERTY) Family history of colon cancer Encounter for screening for malignant neoplasm of colon DOHERTY, Fibroscan suggest cirrhosis, celiac, dilated CBD (s/p GB surgery), fhx of colon ca, obtain liver biopsy if no obvious signs of portal hypertension, duodenal bx for f/u celiac Procedures PRO ENDOSCOPIC US EXAM, ESOPH PRO COLONOSCOPY, DIAGNOSTIC PRO ANESTH, COMBINED UPPER OR LOWER ENDOSCOPY PRO COLONOSCOPY, BIOPSY PRO ANESTH, LWR INTESTINE, SCREENING COLONOSCOPY UPPER EUS- ENDOSCOPIC ULTRASOUND COLONOSCOPY, DIAGNOSTIC Matthew Najera MD [facility] [place] [address] [facility] Referral ID Status Reason Start Date Expiration Date Visits Re quested Visits Authorized [id number] 1 1 Encounter Details Date Type Department Care Team (Late st Contact Info) Description 09/10/2022 2:30 PM EST - 09/10/2022 4:00 PM EST Surgery [place] [address] Matthew Najera MD [facility] [place] [address] UPPER EUS- ENDOSCOPIC ULTRASOUND (WRVU 3.47) Social History Tobacco Use Types Packs/Day Years [...] Sign Reading Time Taken Comments Blood Pressure 106/60 09/10/2022 3:48 PM EST Pulse 110 09/10/2022 2:16 PM EST Temperature 36 ??C (96.8 ??F) 09/10/2022 2:16 PM EST Respiratory Rate 20 09/10/2022 3:48 PM EST Oxygen Saturation 98% 09/10/2022 3:48 PM EST Inhaled Oxygen Concentration - - Weight 83 kg (183 lb) 09/10/2022 2:16 PM EST Height 154.9 cm (5' 1) 09/10/2022 2:16 PM EST Body Mass Index 34.58 09/10/2022 2:16 PM EST documented in this encounter Discharge Instructions * Discharge Instructions* Kori Patterson RN - 09/10/2022 3:51 PM EST Endoscopic Ultrasound (Oral): What to Expect At Home Your Recovery After you have an endoscopic ultrasound--a test to look for problems in the stomach, liver, gallbladder, and other organs--you will stay at the hospital or clinic for 1 to 2 hours. This will allow the medicine to wear off. You will be able to go home after your doctor or nurse checks to make sure you are not having any problems. You may have a sore throat for a day or two after the test. This care sheet gives you a general idea about what to expect after the test. How can you care for yourself at home? Activity Rest when you feel tired. You can do your normal activities when it feels okay to do so. Diet Follow your doctor's directions for eating. Unless your doctor has told you not to, drink plenty of fluids. Do not drink alcohol. Medicines Your doctor will tell you if and when you can restart your medicines. He or she will also give you instructions about taking any new medicines. If you take blood thinners, such as warfarin (Coumadin), clopidogrel (Plavix), or aspirin, be sure to talk to your doctor. He or she will tell you if and when to start taking those medicines again. Make sure that you understand exactly what your doctor wants you to do. If a biopsy was done during the test, your doctor may tell you not to take aspirin or other anti-inflammatory medicines for a few days. These include ibuprofen (Advil, Motrin) and naproxen (Aleve). If you have a sore throat the day after the procedure, use an nxxq-jkk-xwgneij spray to numb your throat. Sucking on throat lozenges and gargling with warm salt water may also help relieve your symptoms. Other instructions For your safety, do not drive or operate machinery until the medicine wears off and you can think clearly. Your doctor may tell you not to drive or operate machinery until the day after your test. Do not sign legal documents or make major decisions until the medicine wears off and you can think clearly. The anesthesia can make it hard for you to fully understand what you are agreeing to. Additional Information for Sedation Patients For patients who received sedation: You may have received medications before and/or during your procedure which effects your judgement and reaction time. Do not drive, operate machinery, drink alcoholic beverages or make important decisions for 24 hours. Be careful on stairs as you may be unsteady on your feet. You may eat a regular diet as tolerated. Do not smoke if you are alone. IV site: Slight redness or tenderness is normal, you can use a warm compress if you would like. If tenderness and/or redness increase or if foul drainage occurs, please contact your Doctor. Please call [phone] before 8pm Mon-Fri with problems, questions or concerns. If you call after 8pm or on weekends, call the Hospital at [phone] and ask to speak to the Silica Filter Operator net application support specialist and the mva still operator will contact that person for you. When should you call for help? Call 911 anytime you think you may need emergency care. For example, call if: You passed out (lost consciousness). You pass maroon or bloody stools. You have trouble breathing. Call your doctor now or seek immediate medical care if: You have pain that does not get better after you take pain medicine. You are sick to your stomach or cannot drink fluids. You have new or worse belly pain. You have blood in your stools. You have a fever. You cannot pass stools or gas. Watch closely for changes in your health, and be sure to contact your doctor if you have any problems. Where can you learn more? [facility] View your After Visit Summary and more online at [email or web address] If you would like to provide feedback about your hospital experience, please call the Office of Patient and Family Relations at . If you have received this After Visit Summary in error, please immediately return it in person to the department, or notify the [facility] Privacy Office by calling toll free at between the hours of 8AM and 5PM to arrange for our retrieval of the documents at no cost to you. Content Version: 12.2 ?? 3920-2505 [employer]. Care instructions adapted under license by [facility]. If you have questions about a medical condition or this instruction, always ask your healthcare professional. [employer] disclaims any warranty or liability for your use of this information. Colonoscopy: What to Expect at Home Your Recovery Your doctor will talk to you about when you will need your next colonoscopy. Your doctor can help you decide how often you need to be checked. This will depend on the results of your test and your risk for colorectal cancer. After the test, you may be bloated or have gas pains. You may need to pass gas. If a biopsy was done or a polyp was removed, you may have streaks of blood in your stool (feces) for a few days. Problems such as heavy rectal bleeding may not occur until several weeks after the test. This isn't common. But it can happen after polyps are removed. This care sheet gives you a general idea about how long it will take for you to recover. But each person recovers at a different pace. Follow the steps below to get better as quickly as possible. How can you care for yourself at home? Activity Rest when you feel tired. You can do your normal activities when it feels okay to do so. Diet Follow your doctor's directions for eating. Unless your doctor has told you not to, drink plenty of fluids. This helps to replace the fluids that were lost during the colon prep. Do not drink alcohol. Medicines Your doctor will tell you if and when you can restart your medicines. He or she will also give you instructions about taking any new medicines. If you take blood thinners, such as warfarin (Coumadin), clopidogrel (Plavix), or aspirin, be sure to talk to your doctor. He or she will tell you if and when to start taking those medicines again. Make sure that you understand exactly what your doctor wants you to do. If polyps were removed or a biopsy was done during the test, your doctor may tell you not to take aspirin or other anti-inflammatory medicines for a few days. These include ibuprofen (Advil, Motrin) and naproxen (Aleve). Other instructions For your safety, do not drive or operate machinery until the medicine wears off and you can think clearly. Your doctor may tell you not to drive or operate machinery until the day after your test. Do not sign legal documents or make major decisions until the medicine wears off and you can think clearly. The anesthesia can make it hard for you to fully understand what you are agreeing to. Additional Information for Sedation Patients For patients who received sedation: You may have received medications before and/or during your procedure which effects your judgement and reaction time. Do not drive, operate machinery, drink alcoholic beverages or make important decisions for 24 hours. Be careful on stairs as you may be unsteady on your feet. You may eat a regular diet as tolerated. Do not smoke if you are alone. IV site: Slight redness or tenderness is normal, you can use a warm compress if you would like. If tenderness and/or redness increase or if foul drainage occurs, please contact your Doctor. Please call [phone] before 8pm Mon-Fri with problems, questions or concerns. If you call after 8pm or on weekends, call the Hospital at [phone] and ask to speak to the Silica Filter Operator net application support specialist and the mva still operator will contact that person for you. When should you call for help? Call 911 anytime you think you may need emergency care. For example, call if: You passed out (lost consciousness). You pass maroon or bloody stools. You have trouble breathing. Call your doctor now or seek immediate medical care if: You have pain that does not get better after you take pain medicine. You are sick to your stomach or cannot drink fluids. You have new or worse belly pain. You have blood in your stools. You have a fever. You cannot pass stools or gas. Watch closely for changes in your health, and be sure to contact your doctor if you have any problems. Where can you learn more? [facility] View your After Visit Summary and more online at [email or web address] If you would like to provide feedback about your hospital experience, please call the Office of Patient and Family Relations at . If you have received this After Visit Summary in error, please immediately return it in person to the department, or notify the [facility] Privacy Office by calling toll free at between the hours of 8AM and 5PM to arrange for our retrieval of the documents at no cost to you. Content Version: 12.2 ?? 8592-4572 [employer]. Care instructions adapted under license by [facility]. If you have questions about a medical condition or this instruction, always ask your healthcare professional. [employer] disclaims any warranty or liability for your use of this information. Colonoscopy: What to Expect at Home Your Recovery Your doctor will talk to you about when you will need your next colonoscopy. Your doctor can help you decide how often you need to be checked. This will depend on the results of your test and your risk for colorectal cancer. After the test, you may be bloated or have gas pains. You may need to pass gas. If a biopsy was done or a polyp was removed, you may have streaks of blood in your stool (feces) for a few days. Problems such as heavy rectal bleeding may not occur until several weeks after the test. This isn't common. But it can happen after polyps are removed. This care sheet gives you a general idea about how long it will take for you to recover. But each person recovers at a different pace. Follow the steps below to get better as quickly as possible. How can you care for yourself at home? Activity Rest when you feel tired. You can do your normal activities when it feels okay to do so. Diet Follow your doctor's directions for eating. Unless your doctor has told you not to, drink plenty of fluids. This helps to replace the fluids that were lost during the colon prep. Do not drink alcohol. Medicines Your doctor will tell you if and when you can restart your medicines. He or she will also give you instructions about taking any new medicines. If you take blood thinners, such as warfarin (Coumadin), clopidogrel (Plavix), or aspirin, be sure to talk to your doctor. He or she will tell you if and when to start taking those medicines again. Make sure that you understand exactly what your doctor wants you to do. If polyps were removed or a biopsy was done during the test, your doctor may tell you not to take aspirin or other anti-inflammatory medicines for a few days. These include ibuprofen (Advil, Motrin) and naproxen (Aleve). Other instructions For your safety, do not drive or operate machinery until the medicine wears off and you can think clearly. Your doctor may tell you not to drive or operate machinery until the day after your test. Do not sign legal documents or make major decisions until the medicine wears off and you can think clearly. The anesthesia can make it hard for you to fully understand what you are agreeing to. Additional Information for Sedation Patients For patients who received sedation: You may have received medications before and/or during your procedure which effects your judgement and reaction time. Do not drive, operate machinery, drink alcoholic beverages or make important decisions for 24 hours. Be careful on stairs as you may be unsteady on your feet. You may eat a regular diet as tolerated. Do not smoke if you are alone. IV site: Slight redness or tenderness is normal, you can use a warm compress if you would like. If tenderness and/or redness increase or if foul drainage occurs, please contact your Doctor. Please call [phone] before 8pm Mon-Fri with problems, questions or concerns. If you call after 8pm or on weekends, call the Hospital at [phone] and ask to speak to the Silica Filter Operator net application support specialist and the mva still operator will contact that person for you. When should you call for help? Call 911 anytime you think you may need emergency care. For example, call if: You passed out (lost consciousness). You pass maroon or bloody stools. You have trouble breathing. Call your doctor now or seek immediate medical care if: You have pain that does not get better after you take pain medicine. You are sick to your stomach or cannot drink fluids. You have new or worse belly pain. You have blood in your stools. You have a fever. You cannot pass stools or gas. Watch closely for changes in your health, and be sure to contact your doctor if you have any problems. Where can you learn more? [facility] View your After Visit Summary and more online at [email or web address] If you would like to provide feedback about your hospital experience, please call the Office of Patient and Family Relations at . If you have received this After Visit Summary in error, please immediately return it in person to the department, or notify the [facility] Privacy Office by calling toll free at between the hours of 8AM and 5PM to arrange for our retrieval of the documents at no cost to you. Content Version: 12.2 ?? [phone] [employer]. Care instructions adapted under license by [facility]. If you have questions about a medical condition or this instruction, always ask your healthcare professional. [employer] disclaims any warranty or liability for your use of this information. documented in this encounter Medications at Time of [...] 0.05 % ointment Apply topically as needed. FeroSuL 325 mg (65 mg iron) Tablet [...] daily. 02/07/2024 documented as of this encounter H&P Notes * Matthew Najera MD - 09/10/2022 2:53 PM EST PROBLEM LIST Patient Active Problem List Diagnosis Code ??? History of basal cell carcinoma Z85.828 ??? Esophageal reflux K21.9 HISTORY OF PRESENT ILLNESS Genoveva Whiting is a 67 y.o. y/o who presents for EUS/colonoscopy for liver bx, evaluation of celiac disease, evaluation of a dilated CBD and screening - both parents had colon cancer. MEDICATIONS No current facility-administered medications on file prior to encounter. Current Outpatient Medications on File Prior to Encounter Medication Sig Dispense Refill ??? doxepin (SINEquan) 10 mg Capsule ??? FeroSuL 325 mg (65 mg iron) Tablet ??? rOPINIRole (Requip) 1 mg Tablet ??? DULoxetine DR (Cymbalta) 60 mg Capsule, Delayed Release(E.C.) ??? ascorbic acid, vitamin C, (VITAMIN C) 500 mg Tablet, Chewable Take by mouth. ??? esomeprazole (NEXIUM) 40 mg capsule Take 1 capsule by mouth 2 times daily. 180 capsule 3 ??? pravastatin (PRAVACHOL) 40 mg tablet Take 40 mg by mouth daily. ??? DULOXETINE HCL (CYMBALTA ORAL) Take 60 mg by mouth daily. ??? LORazepam (ATIVAN) 1 mg tablet Take 1 mg by mouth nightly. ??? AMITRIPTYLINE HCL (AMITRIPTYLINE ORAL) Take 75 mg by mouth daily. ??? clobetasol (TEMOVATE) 0.05 % ointment Apply topically as needed. PHYSICAL EXAM: Blood pressure (!) 163/100, pulse (!) 110, temperature 36 ??C (96.8 ??F), temperature source Skin, height 154.9 cm (5' 1), weight 83 kg (183 lb), SpO2 98 %. GEN: Alert, cooperative. Pleasant. In NAD MP I ASA II HEENT: No oropharyngeal lesions. Neck supple. No masses. Thyroid symmetric LUNGS: CTAB CARD: RRR without m/g/r RECENT LABS No results found for this or any previous visit (from the past 24 hour(s)). ASSESSMENT AND PLAN Genoveva Whiting is a 67 y.o. y/o who presents for endoscopic evaluation. Risks extensively discussed including bleeding, infection, reaction to anesthesia, perforation, pancreatitis, missing a cancer, bile duct injury, and/or other unforseen complication. Consent signed and patient well informedof the risks of the procedure. documented in this encounter Plan of Treatment Upcoming Encounters Date Type Department Care Team (Late st Contact Info) Description 09/17/2024 9:00 AM EST [place]ointment [place] [phone] Mily Garcia MD [facility] [place] [address] 09/17/2024 9:45 AM EST Laboratory Appointment Lab [address] [place] [phone] 09/17/2024 11:30 AM EST Office Visit [place] [phone] Mily Garcia MD [facility] [place] [address] documented as of this encounter Procedures Procedure Name Priority Date/Time Associated Diagnosis Comments SPECIMEN TO PATHOLOGY Routine 09/10/2022 3:42 PM EST SPECIMEN TO PATHOLOGY Routine 09/10/2022 3:42 PM EST SURGICAL PATHOLOGY REPORT Routine 09/10/2022 3:35 PM EST Needle Biopsy Liver ([id number]) 09/10/2022 2:57 PM EST Elevated liver enzymes DOHERTY (nonalcoholic steatohepatitis) Upgi Endoscopy W/Us Fn Bx ([id number]) 09/10/2022 2:57 PM EST Elevated liver enzymes DOHERTY (nonalcoholic steatohepatitis) Colonoscopy, Diagnostic ([id number]) 09/10/2022 2:57 PM EST Elevated liver enzymes DOHERTY (nonalcoholic steatohepatitis) Endoscopic Us Exam, Esoph ([id number]) 09/10/2022 2:57 PM EST Elevated liver enzymes DOHERTY (nonalcoholic steatohepatitis) UPPER EUS-ENDOSCOPIC ULTRASOUND Routine 09/10/2022 2:48 PM EST COLONOSCOPY Routine 09/10/2022 2:46 PM EST documented in this encounter Results * Specimen to Pathology (09/10/2022 3:42 PM EST) AP Specimen 09/10/2022 3:42 PM EST 09/10/2022 3:42 PM EST Narrative [facility] - 09/10/2022 3:42 PM EST Specimen requisition ordered. ??Separate Pathology report to follow Matthew Najera MD PATHOLOGY/CYTOLOGY ORDERABLES [facility] [place] [address] * Specimen to Pathology (09/10/2022 3:42 PM EST) AP Specimen 09/10/2022 3:42 PM EST 09/10/2022 3:42 PM EST Narrative [facility] - 09/10/2022 3:42 PM EST Specimen requisition ordered. ??Separate Pathology report to follow Matthew Najera MD PATHOLOGY/CYTOLOGY ORDERABLES [facility] [place] [address] * Surgical Pathology Report (09/10/2022 3:35 PM EST) FINAL DIAGNOSIS (AP) [id number] ? Location: 4T; EA06; A The signing pathologist has (i) examined the relevant preparation(s) for the specimen(s) and (ii) rendered or confirmed the diagnosis(es). . ?Surgical Pathology DIAGNOSIS A - Duodenal bx's, biopsy (Multiple): - ??Duodenal mucosa with focal lymphangiectasia and no intraepithelial lymphocytosis. B - Liver bx. DOHERTY staging, biopsy (Multiple): - The biopsy shows periportal/septal chronic inflammayion with plasma cell admixture. Foci of lobular chronic inflammation consisting predominantly of lymphocytes and histiocytes are also noted. Hgsc-tt-gaskjggi steatosis is present. Trichrome stain highlights advanced fibrosis with possible cirrhosis. ?Iron stain is negative. ??The findings are consistent with the pattern of chronic active hepatitis. ? Differential diagnosis includes ??chronic drug injury, autoimmune hepatitis and celiac disease, however the findings appear to be too advanced for celiac disease-associated hepatitis. Viral hepatitis also cannot be ruled out. The case was reviewed by Dr. Duong, who concurs with the interpretation. Electronically signed by: ?Dashawn Sultana MD Verified: ??09/18/2022 12:15 ??Pathologist Performed at: ??-[facility] Dept. of Pathology, [place] [address] Door Hanger: Dagmar Duong MD, FCAP, ??CLIA Certificate: [id number] ADDITIONAL STUDIES Whole slide scan: B1, trichrome Special stains are performed. ?? Block ? Stain ?Result ( Positive / Negative ) ??B1 ?Iron ?see note ?Trichrome SPECIMEN(S) SUBMITTED A - Duodenal bx's, biopsy (Multiple) B - Liver bx. DOHERTY staging, biopsy (Multiple) CLINICAL INFORMATION 67-year-old with history of DOHERTY, staging celiac SPECIMEN PROCESSING A - Labeled/Fixative: Duodenal biopsies, formalin. Quantity/Size: Four, 0.3 cm. Tissue Description: Soft, de jesus-pink tissues. Sections/Processing : Submitted en toto ??in 1 cassette labeled A1. B - Labeled/Fixative: Liver biopsy DOHERTY staging, formalin. Quantity/Size: Fragments, from 0.1 cm to 0.8 x 0.1 cm Tissue Description: Delicate, de jesus-pink needle core biopsies. Sections/Processing : Entirely submitted in 1 cassette labeled B1. ??pps 09/18/2022 12:15 PM EST [facility] 09/10/2022 3:35 PM EST Matthew Najera MD PATHOLOGY/CYTOLOGY ORDERABLES [facility] [place] [address] * UPPER EUS-ENDOSCOPIC ULTRASOUND (09/10/2022 2:48 PM EST) UPPER ENDOSCOPIC ULTRASOUND [facility] Endoscopy Procedure Date: 09/10/2022 2:48 PM ? Patient Name: Genoveva Whiting ? Date of : 1955 ? Age: 67 ? Order #: [id number] ? Instrument Name: [id number] ? Procedure: ? Upper EUS Indications: ? Elevated liver tests Providers: ? Matthew Najera MD, Yunior Neri ? RAÚL Jay, Jelena [...] ? antiplatelet agents. ASA Grade ? Assessment: III - A patient with ? severe systemic disease. After ? reviewing the risks [...] cancer, and adverse medication ? reactions. The Endoscope was ? introduced through the mouth, and ? advanced to the third part of ? duodenum. The upper EUS was ? accomplished without difficulty. ? The patient tolerated the procedure ? well. ? Findings: ? ENDOSCOPIC FINDING: : ? The examined esophagus was endoscopically normal. ? The entire examined stomach was endoscopically normal. ? The examined duodenum was endoscopically normal. The ? ampulla was normal. Biopsies were taken of the ? duodenum with a cold forceps. ? ENDOSONOGRAPHIC FINDING: : ? There was no sign of significant endosonographic ? abnormality in the esophagus, stomach, duodenum or ? celiac axis. ? There was no sign of significant endosonographic ? abnormality in the ampulla. ? There was no sign of significant endosonographic ? abnormality in the common bile duct. The maximum ? diameter of the duct was 10 mm. There were no stones. ? There was no sign of significant endosonographic ? abnormality in the left lobe of the liver with the ? exception of diffuse fatty infiltration. Fine needle ? aspiration for cytology was performed. Color Doppler ? imaging was utilized prior to needle puncture to ? confirm a lack of significant vascular structures ? within the needle path. One pass was made with the 22 ? gauge needle using a transgastric approach. A stylet ? was used. A preliminary cytologic examination was not ? performed. Final cytology results are pending. ? The pancreas was normal with the exception of diffuse ? fatty infiltration ? Moderate Sedation: ? Not applicable - See Anesthesia documentation Impression: ?- Diffuse fatty infiltration of the ? liver and pancreas - biopsied Recommendation: ?- Await pathology results ? Attending Participation: ? I personally performed the entire procedure. ? ___ Matthew Najera MD 09/10/2022 3:48:26 PM This report has been signed electronically. Number of Addenda: 0 Note Initiated On: 09/10/2022 2:48 PM [facility]ATION 09/10/2022 2:48 PM EST Genoveva Maher MD GENERAL SURGICAL ORD ERABLES PROVATION * COLONOSCOPY (09/10/2022 2:46 PM EST) COLONOSCOPY [facility] Endoscopy Procedure Date: 09/10/2022 2:46 PM ? Patient Name: Genoveva Whiting ? Date of : 1955 ? Age: 67 ? Order #: [id number] ? Instrument Name: [id number] ? Procedure: ? Colonoscopy Indications: ? Family history of colon cancer in ? multiple first-degree relatives Providers: ? Matthew Najera MD, Yunior Neri ? RAÚL Jay, Jelena Galaviz Referring MD: ?Genoveva Maher MD, Sanam ? Adjovu [...] Maher MD GENERAL SURGICAL ORD ERABLES [facility]OVATION documented in this encounter Visit Diagnoses Diagnosis Elevated liver enzymes Nonspecific elevation of levels of transaminase or lactic acid dehydrogenase (LDH) DOHERTY (nonalcoholic steatohepatitis) Other chronic nonalcoholic liver disease documented in this encounter Administered Medications Inactive Administered Medications - up to 3 most recent administrations Medication Order MAR Action Action Date Dose Rate Site lactated ringers infusion 100 mL/hr, Intravenous, CONTINUOUS, Starting on Sat09/10/22 at 1430, Until Sat09/10/22 at 1725, Endoscopy (Day of Procedure) New Bag 09/10/2022 2:25 PM EST 100 mL/hr 100 mL/hr documented in this encounter Active and Recently Administered Medications Times are shown in EST. Continuous Medication Order 09/08/2022 09/09/2022 09/10/2022 lactated ringers infusion (CANCELED) 100 mL/hr, Intravenous, CONTINUOUS, Starting on Sat09/10/22 at 1430, Until Sat09/10/22 at 1725, Endoscopy (Day of Procedure) 1425 (New Bag - Prov ider: Melissa Ruano RN) documented in this encounter Care Teams [employer] Representative Relationship Specialty Start Date End Date Sanam Bennett APRN [address] [place] [address] PCP - General Family Medicine 09/06/22 documented as of this encounter
--- OUTSIDE RECORDS SUMMARY | 2024-04-27 01:26 | XMS_ITS | Encounter Summary ---
Author Organization [facility] Address [facility] [place] [address] Care Team Providers Care Health And Safety Inspector Name Role Phone Alireza Ojeda DO Primary Care Provider Reason for Visit * Consultation (Routine) - Closed Specialty Diagnoses / Procedures Referred By Gabrielle graves Referred To Contact Gastroenterology Diagnoses DOHERTY (nonalcoholic steatohepatitis) Fatty liver, DOHERTY, Eval for MRCP vs/ ERCP Genoveva Maher MD [address] [place] [address] [facility] [place] [address] [address] Referral ID Status Reason Start Date Expiration Date V isits Requested Visits Authorized [id number] Closed Consult, Test & Treat 06/27/2022 06/27/2023 1 1 Encounter Details Date Type Department Care Team (Late st Contact Info) Description 08/27/2022 12:00 PM EST Office [place] [address] Mily Garcia MD [facility] [place] [address] Elevated liver enzymes; DOHERTY (nonalcoholic steatohepatitis) Social History Tobacco Use Types Packs/Day Years [...] Sign Reading Time Taken Comments Blood Pressure 145/76 08/27/2022 12:22 PM EST Pulse 95 08/27/2022 12:22 PM EST Temperature - - Respiratory Rate - - Oxygen Saturation - - Inhaled Oxygen Concentration - - Weight 87 kg (191 lb 11.2 oz) 08/27/2022 12:22 P M EST Height 154.9 cm (5' 1) 08/27/2022 12:22 PM EST Body Mass Index 36.22 08/27/2022 12:22 PM EST documented in this encounter Progress Notes * Mily Garcia MD - 08/27/2022 12:00 PM EST HEPATOLOGY CONSULTATION Genoveva Almonteith 1955 AGRICULTURE INSTRUCTOR: Mily Garcia MD ([id number]) PCP: Alireza Ojeda DO Requesting Provider: Genoveva Maher MD [address] [place] [id number] REASON FOR CONSULTATION Fatty liver and dilated bile duct HISTORY OF PRESENT ILLNESS Genoveva Whiting is a 67 y.o. year old who reports having routine blood work in January 2022 and was noted to have elevated liver enzymes. She reports this was the first time they have been high. She had follow up labs in 05/2022 which still had elevated liver enzymes. Hep B and Hep C testing in 05/2022 was negative. SPEP was normal in 05/2022. She denies any symptoms (no jaundice, ascites, HE, or GI b leeding). She reports on her dad's side of the family several aunts/uncles had issues with EtOH. She personally does not drink EtOH. Tattoo at age 21. No other risk factors for viral hepatitis. Her DOHERTY risk factors include hyperlipidemia, elevated blood glucose, and obesity. She has been a statin for over 10 years. She had a cholecystectomy in her 40's. She reports a history of celiac disease, diagnosed in her 40's during upper endoscopy. She is on a gluten free diet. She does not recall the last time a tTG was checked. Last EGD prior to 2007. She reports last colonoscopy was 4 years ago. No history of polyps but has been getting colonoscopies every 5 years due to family history of colon CA (mother and father in their 60's). U/S 05/2022: hepatic steatosis, gallbladder is absent, CBD 8-9 mm Hep B and Hep C serology negative 05/2022. ROS: Constitutional: no weight loss HEENT: no visual changes, no URI symptoms Cardio: no chest pain Resp: no cough, no SOB, no OMLINA or orthopnea Hem/Lymph: no new lumps or bumps on body GI: see HPI : no dysuria Integumentary: no new rashes Musculoskeletal: no new joint pains Neuro: no new numbness, weakness in extremities PAST MEDICAL/SURGICAL HISTORY 1. Cholecystectomy in her 40's 2. Right knee replacement, partial 3. Neck surgery 4. Right shoulder surgery 5. Celiac (dx in her 40's, reports dx on EGD, on gluten free diet) 6. Hx of BCC 7. OA 8. Fibromyalgia MEDICATIONS Outpatient Medications Marked as Taking for the 08/27/22 encounter (Office Visit) with Mily Garcia MD Medication Sig Dispense Refill ??? esomeprazole (NEXIUM) 40 mg capsule Take 1 capsule by mouth 2 times daily. 180 capsule 3 ??? LORazepam (ATIVAN) 1 mg tablet Take 1 mg by mouth nightly. ??? pravastatin (PRAVACHOL) 40 mg tablet Take 40 mg by mouth daily. ??? AMITRIPTYLINE HCL (AMITRIPTYLINE ORAL) Take 75 mg by mouth daily. ??? DULOXETINE HCL (CYMBALTA ORAL) Take 60 mg by mouth daily. ALLERGIES Allergies Allergen Reactions ??? Lisinopril ??? Morphine SOCIAL HISTORY Social History Socioeconomic History ??? Marital status: Spouse name: Not on file ??? Number of children: Not on file ??? Years of education: Not on file ??? Highest education level: Not on file Occupational History ??? Not on file Tobacco Use ??? Smoking status: Never ??? Smokeless tobacco: Never Substance and Sexual Activity ??? Alcohol use: No ??? Drug use: No ??? Sexual activity: Not on file Other Topics Concern ??? Not on file Social History Narrative ??? Not on file Social Determinants of Health Financial Resource Strain: Not on file Food Insecurity: Not on file Transportation Needs: Not on file Physical Activity: Not on file Housing Stability: Not on file FAMILY HISTORY There is no family history of inflammatory bowel disease. There is no history of liver disease. Sister, niece, and nephew with celiac. Mother and father with colon cancer in their 60's. Family History Problem Relation Age of Onset ??? Cataracts Mother ??? Macular Degeneration Father ??? Amblyopia Sister ??? Cataracts Sister ??? Glaucoma Neg Hx ??? Retinal Detachment Neg Hx Vitals: 08/27/22 1222 BP: 145/76 BP Location (NBP): Left arm Patient Position: Sitting BP Cuff Sizes: Large Adult (32-43 cm) Pulse: 95 Weight: 87 kg (191 lb 11.2 oz) Height: 154.9 cm (5' 1) PHYSICAL EXAM General: Appears stated age, NAD Eyes: Normal sclera, normal conjunctiva ENT: Moist mucus membranes, normal posterior pharynx Lymph: No lymphadenopathy of the head or neck Heart: Heart sounds I and II were audible, no added sounds, no murmurs Lungs: Clear to ausculation bilaterally Abdomen: Soft, non-tender, no organomegaly, normal active bowel sounds Extremities: No peripheral edema Skin: No jaundice, no spider nevi, no palmar erythema Neuro: No asterixis, grossly intact Mental: Appropriate affect, oriented in person, place, and time RESULTS No visits with results within 3 Month(s) from this visit. Latest known visit with results is: Office Visit on 05/06/2013 Component Date Value Ref Range Status ??? IF Ab 05/06/2013 Negative Negative Final ? ? Parietal Cell Ab, IgG 05/06/2013 <10.0 <=20.0 (Negative) U Final ??? WBC 05/06/2013 7.4 4.0 - 10.0 x10(3)/mcL Final ??? RBC 05/06/2013 4.20 3.93 - 5.22 x10(6)/mcL Final ??? Hemoglobin 05/06/2013 11.9 11.2 - 15.7 gm/dL Final ??? Hematocrit 05/06/2013 36.0 34.0 - 45.0 % Final ??? MCV 05/06/2013 85.7 79.0 - 94.0 fL Final ??? MCH 05/06/2013 28.3 26.6 - 32.2 pg Final ??? MCHC 05/06/2013 33.1 32.0 - 36.5 gm/dL Final ??? Platelets 05/06/2013 284 145 - 370 x10(3)/mcL Final ??? RDWSD 05/06/2013 43.0 35.0 - 46.0 fL Final ??? RDWCV 05/06/2013 13.8 10.9 - 14.4 % Final ??? MPV 05/06/2013 10.1 9.0 - 12.0 fL Final ??? Iron 05/06/2013 97 30 - 150 mcg/dL Final ??? TIBC 05/06/2013 325 250 - 450 mcg/dL Final ??? Iron Saturation 05/06/2013 30 20 - 50 % Final ??? Ferritin 05/06/2013 42 30 - 400 ng/mL Final ??? Vitamin B-12 05/06/2013 1009 (H) 207 - 974 pg/mL Final ? ? Folate Lvl 05/06/2013 >20.0 4.6 - 34.8 ng/mL Final ??? Neutrophils % 05/06/2013 46.9 34.0 - 71.0 % Final ??? Neutr Abs (ANC) 05/06/2013 3.48 1.50 - 6.30 x10(3)/mcL Final ??? Lymphocytes % 05/06/2013 42.9 19.0 - 53.0 % Final ??? Lymphocytes Abs 05/06/2013 3.2 1.0 - 3.6 x10(3)/mcL Final ??? Monocytes % 05/06/2013 7.2 4.0 - 13.0 % Final ??? Monocyte Abs 05/06/2013 0.5 0.2 - 1.0 x10(3)/mcL Final ??? Eosinophils % 05/06/2013 2.2 0.0 - 7.0 % Final ??? Eosinophils Abs 05/06/2013 0.2 0.0 - 0.5 x10(3)/mcL Final ??? Basophils % 05/06/2013 0.5 0.0 - 2.0 % Final ??? Basophils Abs 05/06/2013 0.0 0.0 - 0.2 x10(3)/mcL Final ??? Immature Gran % 05/06/2013 0.30 0.00 - 0.66 % Final ??? Yuliet Gran Abs 05/06/2013 0.02 0.00 - 0.05 x10(3)/mcL Final Fibroscan Results: Mean kPa: 28.3 Mean IQR: 11% (goal is <30 %) Success rate: 92% (goal is >60%) Predicted fibrosis stage: F4 CAP: 329 ASSESSMENT/PLAN #DOHERTY, ?cirrhosis #Dilated CBD likely secondary to being postcholecystectomy #Celiac #Family history of colon cancer in 2 first-degree relatives Unfortunately I did not have her liver enzymes for review today. I did have her ultrasound report which showed hepatic steatosis. We discussed that she has risk factors for nonalcoholic steatohepatitis which could be the cause of her elevated liver enzymes. However, I do recommend evaluation for other causes of liver disease including autoimmune and genetic. Reviewed that viral hepatitis was ruled out on laboratory investigations from May 2022 available in care everywhere. Her FibroScan today is worrisome for potential cirrhosis, therefore I have recommended a liver biopsy for formal staging of fibrosis. Given her history of celiac disease and mild dilation of the CBD I have recommended a liver biopsy be done by endoscopic ultrasound as both of these can also be evaluated at that time. Please obtain duodenal biopsies for follow-up of celiac disease. I will also obtain a TTG with today's labs. I plan to see her back in follow-up 2 weeks after her endoscopic ultrasound and liver biopsy. As she is about due for colonoscopy for colon cancer screening given her significant family history for colon cancer, I have recommended colonoscopy at the same time as her endoscopic ultrasound. Mily Garcia MD Hepatology and Gastroenterology [facility] [address] [place] V: [phone] Copy: Alireza Ojeda DO [address] [place] [address] / [facility] [id number] documented in this encounter Procedure Notes * Mily Garcia MD - 08/27/2022 12:00 PM ESTAssociated Order(s): FIBROSCAN Procedure(s): FIBROSCAN Pre-Procedure Diagnose(s): Elevated liver enzymes; DOHERTY (nonalcoholic steatohepatitis) [facility] Liver Fibrosis Assessment Report Indication: DOHERTY Performed by: Mily Garcia MD Procedure: Vibration Controlled Transient Elastography (VCTE) or Fibroscan [place] Protocol: Patient's identity, procedure and site were verified, confirmatory pause performed. Discussed procedure including risks and potential complications. Questions answered. Patient verbalizes understanding and wishes to proceed with Fibroscan assessment. Patient was placed in the supine position with right arm in maximum abduction to allow optimal exposure of right lateral abdomen. Patient was briefly assessed. Testing was performed in the mid-axillary location. 50Hz Shear Wave pulses were applied and the resulting Shear Wave and Propagation Speed was detected with a 3.5MHz ultrasonic signal, using the Fibroscan probe. Skin to liver capsule distance and liver parenchyma were accessed during the entire examination with the Fibroscan probe. Patient was instructed to breathe normally and abstain from sudden movements during the procedure. At least ten Sheer Waves were produced; individual measurements of each Shear Wave were calculated. Patient tolerated the procedure well with no complications. Fibroscan Results: Median kPa: 28.3 Mean IQR: 11% (goal is <30 %) Number of valid measurements: 11 (at least 10 required) Number of invalid measurements: 1 Predicted fibrosis stage: F4 CAP (dB/m): 329 Estimated steatosis grade: 3/3 % hepatocytes affected: >66% Interpretation: Based on this Fibroscan result, history, clinical examination and review of laboratory and radiological data, this patient likely has stage F4 liver fibrosis. documented in this encounter Plan of Treatment Upcoming Encounters Date Type Department Care Team (Late st Contact Info) Description 09/17/2024 9:00 AM EST [place] [address] Mily Garcia MD [facility] [place] [address] 09/17/2024 9:45 AM EST Laboratory Appointment Lab [address] [place] [phone] 09/17/2024 11:30 AM EST Office [place] [address] Mily Garcia MD [facility] [place] [address] Scheduled Orders Name Type Priority Associated Diagnoses Orde r Schedule ENDOSCOPY CASE REQUEST: UPPER EUS- ENDOSCOPIC ULTRASOUND, COLONOSCOPY, DIAGNOSTIC Procedures Routine Elevated liver enzymes DOHERTY (nonalcoholic steatohepatitis) Ordered: 08/27/2022 documented as of this encounter Procedures Procedure Name Priority Date/Time Associated Diagnosis Comments SMOOTH MUSCLE AB TITER Routine 1:37 PM EST SCAN, PERIPHERAL BLOOD Routine 1:37 PM EST HEMOGRAM Routine 08/27/2022 1:37 PM EST Elevated liver enzymes DOHERTY (nonalcoholic steatohepatitis) DIFFERENTIAL, AUTOMATED Routine 08/27/2022 1:37 PM EST Elevated liver enzymes DOHERTY (nonalcoholic steatohepatitis) HC IRON BINDING CAPACITY Routine 08/27/2022 1:37 PM EST Elevated liver enzymes DOHERTY (nonalcoholic steatohepatitis) HC A1AT (ALPHA-1 ANTITRYPSIN) Routine 08/27/2022 1:37 PM EST Elevated liver enzymes DOHERTY (nonalcoholic steatohepatitis) HC PCH MITOCHONDRIAL ANTIBODY Routine 08/27/2022 1:37 PM EST Elevated liver enzymes DOHERTY (nonalcoholic steatohepatitis) HC VENIPUNCTURE Routine 08/27/2022 1:37 PM EST Elevated liver enzymes DOHERTY (nonalcoholic steatohepatitis) HC PCH SMOOTH MUSCLE AB, SERUM Routine 08/27/2022 1:37 PM EST Elevated liver enzymes DOHERTY (nonalcoholic steatohepatitis) HC PROTHROMBIN TIME Routine 08/27/2022 1 :37 PM EST Elevated liver enzymes DOHERTY (nonalcoholic steatohepatitis) HC CBC,PLT & AUTO DIFF Routine 1:37 PM EST Elevated liver enzymes DOHERTY (nonalcoholic steatohepatitis) FLO ANTIBODY SCREEN Routine 08/27/2022 1 :37 PM EST Elevated liver enzymes DOHERTY (nonalcoholic steatohepatitis) HC IGG, SERUM Routine 08/27/2022 1:37 PM EST Elevated liver enzymes DOHERTY (nonalcoholic steatohepatitis) HC FERRITIN, SERUM Routine 08/27/2022 1: 37 PM EST Elevated liver enzymes DOHERTY (nonalcoholic steatohepatitis) COMPREHENSIVE METABOLIC PANEL (NON-FASTING) Routine 08/27/2022 1:37 PM EST Elevated liver enzymes DOHERTY (nonalcoholic steatohepatitis) [id number] Routine 08/27/2022 12:00 PM EST Elevated liver enzymes DOHERTY (nonalcoholic steatohepatitis) documented in this encounter Results * (ABNORMAL) Smooth Muscle Ab Titer (08/27/2022 1:37 PM EST) Smooth Muscle Ab Titer Positive 1:80(A) Negative [facility] Comment: ADDITIONAL INFORMATION This test was developed and its performance characteristics determined by [facility] in a manner consistent with CLIA requirements. This test has not been cleared or approved by the U.S. Food and Drug Administration. Test Performed by: [facility] - [address] [address] Plate Driller: Yusef Self M.D. Ph.D.; CLIA# [id number] Blood 08/27/2022 1:37 PM EST 08/27/2022 1:45 PM EST Mily Garcia MD CHEMISTRY ORDERABLES Performing Organization Address City/[facility]/ZIP Co de Phone Number [facility] [place] [address] * Scan, Peripheral Blood (08/27/2022 1:37 PM EST) Pathologist [facility] Plat Estimate Normal [facility] RBC Morphology Normal [facility] Blood 08/27/2022 1:37 PM EST 08/27/2022 1:45 PM EST Narrative Resulting Agency Comment Spec In Lab Mily Garcia MD HEMATOLOGY ORDERABLE S Performing Organization Address [facility] Co de Phone Number [facility] [place] [address] * Differential, Automated (08/27/2022 1:37 PM EST) [facility] Neutrophils % 51.3 % [facility] Neutr Abs (ANC) 4.05 1.70 - 6.10 x10(3)/[facility] Lymphocytes % 38.6 % [facility] Lymphocytes Abs 3.0 0.9 - 3.2 x10(3)/[facility] LABOR[facility]ORY Monocytes % 8.7 % [facility] Monocyte Abs 0.7 0.3 - 0.9 x10(3)/[facility] LAB[facility]ORY Eosinophils % 0.0 % [facility] Eosinophils Abs 0.0 0.0 - 0.4 x10(3)/[facility] LAB[facility] Basophils % 1.1 % [facility] Basophils Abs 0.1 0.0 - 0.1 x10(3)/[facility] Immature Gran % 0.30 % [facility] Comment: Immature granulocytes(IG's)percentage and absolute count will include metamyelocytes, myelocytes, and promyelocytes. Blood smears from CBCs yielding IG's will be scanned manually for concordance. If this scan disagrees with the automated IG or if promyelocytes are noted, a manual differential will be performed. Yuliet Gran Abs 0.02 0.00 - 0.04 x10(3)/[facility] Blood 08/27/2022 1:37 PM EST 08/27/2022 1:45 PM EST Narrative Resulting Agency Comment Spec In Lab Mily Garcia MD HEMATOLOGY ORDERABLE S [facility] [place] [address] * Hemogram (08/27/2022 1:37 PM EST) WBC 7.9 4.0 - 9.5 x10(3)/[facility] RBC 4.55 4.00 - 5.21 x10(6)/[facility] Hemoglobin 12.9 11.7 - 15.5 g/dL [facility] Hematocrit 38.8 35.7 - 45.8 % [facility] MCV 85.3 82.6 - 94.4 [facility] LAB[facility]ATORY MCH 28.4 27.1 - 32.0 pg [facility] MCHC 33.2 31.7 - 35.0 g/dL [facility] Platelets 230 145 - 357 x10(3)/[facility] LABORATORY RDWSD 42.5 37.0 - 46.0 [facility] LAB[facility]ATORY RDWCV 13.5 11.5 - 14.1 % [facility] MPV 9.9 7.6 - 12.9 [facility] LAB[facility]ATORY nRBC % Auto 0.0 % [facility] nRBC Abs Auto 0.000 0.000 - 0.000 x10(3)/[facility] Blood 08/27/2022 1:37 PM EST 08/27/2022 1:45 PM EST Narrative Resulting Agency Comment Spec In Lab Mily Garcia MD HEMATOLOGY ORDERABLE S Performing Organization Address [facility] Co de Phone Number [facility] [place] [address] * Ceruloplasmin (08/27/2022 1:37 PM EST) Ceruloplasmin 27.7 16.0 - 45.0 mg/dL [facility] Blood 08/27/2022 1:37 PM EST 08/27/2022 1:45 PM EST Narrative Resulting Agency Comment Spec In Lab Mily Garcia MD CHEMISTRY ORDERABLES Performing Organization Address [facility] Co de Phone Number [facility] [place] [address] * A1AT Serum Concentration (08/27/2022 1:37 PM EST) A1AT 157 90 - 200 mg/dL [facility] Blood 08/27/2022 1:37 PM EST 08/27/2022 1:45 PM EST Narrative Resulting Agency Comment Spec In Lab Mily Garcia MD CHEMISTRY ORDERABLES Performing Organization Address [facility] Co de Phone Number [facility] [place] [address] * (ABNORMAL) Ferritin (08/27/2022 1:37 PM EST) Ferritin 544(H) 30 - 400 ng/mL [facility] Comment: Pediatric reference ranges not verified at [facility], interpret with caution. Reference ranges for females greater than 50 years of age approach values for men, i.e., 30-400 ng/mL. Blood 08/27/2022 1:37 PM EST 08/27/2022 1:45 PM EST Narrative Resulting Agency Comment Spec In Lab Mily Garcia MD CHEMISTRY ORDERABLES Performing Organization Address City/[facility]/ZIP Co de Phone Number [facility] [place] [address] * Iron and TIBC (08/27/2022 1:37 PM EST) Iron 107 30 - 150 mcg/dL [facility] TIBC 288 250 - 450 mcg/dL [facility] Iron Saturation 37 20 - 50 % [facility] Blood 08/27/2022 1:37 PM EST 08/27/2022 1:45 PM EST Narrative Resulting Agency Comment Spec In Lab Mily Garcia MD CHEMISTRY ORDERABLES Performing Organization Address [facility] Co de Phone Number [facility] [place] [address] * (ABNORMAL) IgG (08/27/2022 1:37 PM EST) [facility] IgG 2,857(H) 700 - 1,600 mg/dL [facility] Comment: Pediatric Reference Intervals obtained from the [employer] Reference Interval project. http://www.[employer].ca/caliperproject/index.html Blood 08/27/2022 1:37 PM EST 08/27/2022 1:45 PM EST Narrative Resulting Agency Comment Spec In Lab Mily Garcia MD IMMUNOLOGY ORDERABLE S Performing Organization Address [facility] Co de Phone Number [facility] [place] [address] * (ABNORMAL) Mitochondrial Antibody, M2 (08/27/2022 1:37 PM EST) Pathologist [facility] Mitochon Ab 0.1(H) <0.1 (Negative) U [facility] Comment: Interpretation: Borderline (0.1-0.3) Test Performed by: [facility] - [address] [address] Plate Driller: Yusef Self M.D. Ph.D.; CLIA# [id number] Blood 08/27/2022 1:37 PM EST 08/27/2022 2:23 PM EST Narrative Resulting Agency Comment Spec In Lab Mily Garcia MD IMMUNOLOGY ORDERABLE S Performing Organization Address [facility] Co de Phone Number [facility] [place] [address] * (ABNORMAL) Smooth Muscle Antibody (08/27/2022 1:37 PM EST) Sm Muscle Ab Positive( A) Negative [facility] Comment: Positive: Reflex to titer will be performed ADDITIONAL INFORMATION This test was developed and its performance characteristics determined by [facility] in a manner consistent with CLIA requirements. This test has not been cleared or approved by the U.S. Food and Drug Administration. Test Performed by: [facility] [place] [address] Plate Driller: Yusef Self M.D. Ph.D.; CLIA# [id number] Blood 08/27/2022 1:37 PM EST 08/27/2022 2:23 PM EST Narrative Resulting Agency Comment Spec In Lab Mily Garcia MD IMMUNOLOGY ORDERABLE S Performing Organization Address [facility] Co de Phone Number [facility] [place] [address] * FLO Antibody Screen (08/27/2022 1:37 PM EST) Antinuclear Ab Negative Negative [facility] Comment: This antinuclear antibody (FLO) screen is a qualitative test performed using a fluoroenzyme immunoassay on the [employer] 250 analyzer. This screen is designed to detect antibodies to U1RNP, SS-A/Ro, SS-B/La, centromere B, Scl-70, Marline-1, and Sm(Roy) proteins in serum samples. Antibodies to other nuclear antibodies will not be detected with this assay. This FLO screen is also performed in concert with a quantitative for IgG antibodies to dsDNA. Please note that as of 07/24/2022 that this testing is performed by the Special Chemistry Laboratory at [facility]. This change in testing location is associated with a change is testing method and reference intervals. Please review the results of this test in association with the posted reference intervals. dsDNA Ab 4.2 <=15.0 IU/mL [facility] Comment: <10 negative 10-15 equivocal >15 positive This dsDNA antibody result was generated using a fluoroenzyme immunoassay on the [employer] 250 analyzer. This quantitative test is designed to detect IgG antibodies directed against double stranded DNA in human serum. The presence of antibodies that recognize dsDNA is a highly specific marker for systemic lupus erythematosus. Please note that as of 07/24/2022 that this testing is performed by the Special Chemistry Laboratory at [facility]. This change in testing location is associated with a change is testing method and reference intervals. Please review the results of this test in association with the posted reference intervals. Blood 08/27/2022 1:37 PM EST 08/28/2022 7:26 AM EST Narrative Resulting Agency Comment Spec In Lab Mily Garcia MD IMMUNOLOGY ORDERABLE S [facility] [place] [address] * (ABNORMAL) Prothrombin Time (08/27/2022 1:37 PM EST) PT 13.5(H) 9.4 - 12.5 sec [facility] INR 1.2 [facility] Comment: An INR <2.0 indicates [...] be appropriate depending on clinical circumstances. Blood 08/27/2022 1:37 PM EST 08/27/2022 1:46 PM EST Narrative Resulting Agency Comment Spec In Lab Mily Garcia MD HEMATOLOGY ORDERABLE S [facility] [place] [address] * (ABNORMAL) Comprehensive metabolic panel (non-fasting) (08/27/2022 1:37 PM EST) Glucose Lvl 93 65 - 199 mg/dL [facility] Comment:Diabetes: >=200 mg/d L plus symptoms BUN 12 8 - 18 mg/dL [facility] Creatinine 0.61(L) 0.70 - 1.20 mg/dL [facility] Sodium 137 135 - 145 mmol/L [facility] Potassium 3.8 3.5 - 5.0 mmol/L [facility] Comment: Please note: ??Patients with WBC >100,000 may have falsely elevated Potassium levels. ??For accurate Potassium quantification in these patients send serum separator tube (gold top) for subsequent determinations. ??Contact the Clinical Chemistry Laboratory if there are any questions. Chloride 101 98 - 107 mmol/L [facility] CO2 26 22 - 31 mmol/L [facility] Anion Gap 10 5 - 15 mmol/L [facility] Calcium 8.7 8.5 - 10.5 mg/dL [facility] Total Protein 8.5(H) 6.1 - 8.0 g/dL [facility] Albumin 3.8 3.2 - 5.2 g/dL [facility] AST 184(H) 0 - 30 unit/L [facility] ALT 170(H) 0 - 30 unit/L [facility] Alk Phos 141(H) 35 - 105 unit/L [facility] Total Bilirubin 0.6 0.2 - 1.3 mg/dL [facility] Estimated GFR 98 >=60 mL/min/1. 73 m?? [facility] Comment: This patient's estimated [...] and symptoms in addition to eGFR. Blood 08/27/2022 1:37 PM EST 08/27/2022 1:45 PM EST Narrative Resulting Agency Comment Spec In Lab Mily Garcia MD CHEMISTRY ORDERABLES [facility] [place] [address] * [id number] (08/27/2022 12:00 PM EST) Narrative Mily Garcia MD - 08/27/2022 12:00 PM EST Mily Garcia MD ? 08/27/2022 ??1:10 PM [facility] Liver Fibrosis Assessment Report Indication: ?? DOHERTY Performed by: ??Mily Garcia MD Procedure: Vibration Controlled Transient Elastography (VCTE) or Fibroscan [place] Protocol: Patient's identity, procedure and site were verified, confirmatory pause performed. Discussed procedure including risks and potential complications. Questions answered. Patient verbalizes understanding and wishes to proceed with Fibroscan assessment. Patient was placed in the supine position with right arm in maximum abduction to allow optimal exposure of right lateral abdomen. Patient was briefly assessed. Testing was performed in the mid-axillary location. 50Hz Shear Wave pulses were applied and the resulting Shear Wave and Propagation Speed was detected with a 3.5MHz ultrasonic signal, using the Fibroscan probe. Skin to liver capsule distance and liver parenchyma were accessed during the entire examination with the Fibroscan probe. Patient was instructed to breathe normally and abstain from sudden movements during the procedure. At least ten Sheer Waves were produced; individual measurements of each Shear Wave were calculated. Patient tolerated the procedure well with no complications. Fibroscan Results: Median kPa: 28.3 Mean IQR: 11% (goal is <30 %) Number of valid measurements: 11 (at least 10 required) Number of invalid measurements: 1 Predicted fibrosis stage: F4 CAP (dB/m): 329 Estimated steatosis grade: 3/3 % hepatocytes affected: >66% Interpretation: Based on this Fibroscan result, history, clinical examination and review of laboratory and radiological data, this patient likely has stage F4 liver fibrosis. Authorizing Provider Result Candis Garcia MD PROCEDURE/MINOR SURG ICAL ORDERABLES documented in this encounter Visit Diagnoses Diagnosis Elevated liver enzymes Nonspecific elevation of levels of transaminase or lactic acid dehydrogenase (LDH) DOHERTY (nonalcoholic steatohepatitis) Other chronic nonalcoholic liver disease documented in this encounter Care Teams Health And Safety Inspector Relationship Specialty Start Date End Date Alireza Ojeda DO [address] [place] [address] PCP - General 07/16/11 09/05/22 documented as of this encounter
--- OUTSIDE RECORDS SUMMARY | 2024-04-27 01:26 | XMS_ITS | Encounter Summary ---
Author Organization [facility] Address [address] [place] [address] Care Team Providers Care Diesel Technology Instructor Name Role Phone Alireza Ojeda DO Primary Care Provider [phone] Encounter Details Date Type Department Care Team (Late st Contact Info) Description 09/27/2023 Lab Requisition [facility] Pathology & Laboratory Medicine - [facility] [address] [place] [address] Outr Resulting Lab, Provider Social History Tobacco Use Types Packs/Day Years Used Date Smoking Tobacco: Never Assessed Interpersonal Safety Answer Date Record ed Physically Hurt Never 05/01/2020 Verbally Threaten Not on file 05/01/2020 Sex and Gender Information Value Date Recorded Sex Assigned at Not on file Gender Identity Not on file Sexual Orientation Not on file documented as of this encounter Plan of Treatment Not on file documented as of this encounter Procedures Procedure Name Priority Date/Time Associated Diagnosis Comments TISSUE TRANSGLUTAMINASE ANTIBODY, IGA Routine 09/27/2023 7:56 EST AFP TUMOR MARKER Routine 09/27/2023 7:56 EST documented in this encounter Results * AFP TUMOR MARKER (09/27/2023 7:56 EST) AFP Tumor Marker 3.2 <8.1 ng/mL 09/27/2023 20:23 EST [facility] Comment: AFP Tumor Marker cannot be interpreted in females. ?? NOTE: Serum AFP concentrations should not be interpreted as absolute evidence for the presence or absence of malignant disease. Assayed on Siemens ADVIA Centaur XPT using chemiluminescent technology. ??Values obtained by using different assay methods cannot be used interchangeably. Blood VENOUS BLOOD / Unknown 09/27/2023 7:56 EST 09/27/2023 19:00 EST Provider Outr Resulting Lab CHEMISTRY & BLOOD GAS ORDERABLES Performing Organization Address [facility] de Phone Number [facility] [address] [place] [address] * TISSUE TRANSGLUTAMINASE ANTIBODY, IGA (09/27/2023 7:56 EST) Tissue Transglutaminase Antibody, IgA <4.0 <20.0 CU 10/01/2023 12:31 EST [facility] Comment: Negative: <20.0 CU Weak Positive: 20.0-30.0 CU Positive: >30.0 CU Results were obtained with the TredA Flash h-tTG IgA chemiluminescent immunoassay. Values obtained with different manufacturers' assay methods may not be used interchangeably. Blood VENOUS BLOOD / Unknown 09/27/2023 7:56 EST 09/27/2023 19:00 EST Provider Outr Resulting Lab IMMUNOLOGY A ND SEROLOGY ORDERABLES Performing Organization Address [facility] Phone Number [facility] [address] [place] [address] documented in this encounter Visit Diagnoses Not on filedocumented in this encounter Care Teams Diesel Technology Instructor Relationship Specialty Start Date End Date Alireza Ojeda DO [address] [place] [address] PCP - General 12/14/15 documented as of this encounter
--- OUTSIDE RECORDS SUMMARY | 2024-04-27 01:26 | XMS_ITS | Encounter Summary ---
[place] [address] Care Team Providers Care Compliance Auditor Name Role Phone Alireza Ojeda DO Primary Care Provider [phone] Encounter Details Date Type Department Care Team (Late st Contact Info) Description 07/07/2013 1:00 PM EDT Office [place] [address] CLINIC, Krystle Burton, RN GERD (gastroesophageal reflux disease) (Primary Dx) Discharge Disposition: Home Social History Tobacco Use [...] as of this encounter Progress Notes * Krystle Salazar RN - 07/07/2013 1:18 PM EDT 1315 Berry capsule deployed at 32 cm below incisors Following EGD. Study is being done On Dexilant 60 mgm BID and this was confirmed with her. First pH 6.2. She will mail back business continuity director and diary in view of the distance involved. documented in this encounter Plan of Treatment Upcoming Encounters Date Type Department Care Team (Late st Contact Info) Description 09/17/2024 9:00 AM [place] [address] Mily Garcia MD [facility] [place] [address] 09/17/2024 9:45 AM EST Laboratory Appointment Lab [address] [place] [address] 09/17/2024 11:30 AM EST Office [place] [phone] Miyl Garcia MD [facility] [place] [address] documented as of this encounter Visit Diagnoses Diagnosis GERD (gastroesophageal reflux disease)- Primary Esophageal reflux documented in this encounter Care Teams Compliance Auditor Relationship Specialty Start Date End Date Alireza Ojeda DO [address] [place] [address] PCP - General 07/16/11 09/05/22 documented as of this encounter
--- OUTSIDE RECORDS SUMMARY | 2024-04-27 01:26 | XMS_ITS | Encounter Summary ---
Author Organization [facility] Address [address] [place] [address] Care Team Providers Care Transit Mixer Driver Name Role Phone Alireza Ojeda DO Primary Care Provider [phone] Encounter Details Date Type Department Care Team (Late st Contact Info) Description 01/29/2022 Lab Requisition [facility] Pathology & Laboratory Medicine - [facility] [address] [place] [address] Outr Resulting Lab, Provider Social History Tobacco [...] Procedure Name Priority Date/Time Associated Diagnosis Comments HEPATITIS C AB W REFLEX TO HCV RNA BY PCR Routine 01/29/2022 12:18 EDT documented in this encounter Results * HEPATITIS C AB W REFLEX TO HCV RNA BY PCR (01/29/2022 12:18 EDT) Hep C Antibody Negative Negative 01/30/2022 10:47 EDT [facility] Blood VENOUS BLOOD / Unknown 01/29/2022 12:18 EDT 01/29/2022 20:43 EDT Provider Outr Resulting Lab CHEMISTRY & BLOOD GAS ORDERABLES Performing Organization Address City/State/[facility] Co de Phone Number [facility] [address] [place] [address] documented in this encounter Visit Diagnoses Not on filedocumented in this encounter Care Teams Transit Mixer Driver Relationship Specialty Start Date End Date Alireza Ojeda DO [address] [place] [address] PCP - General 12/14/15 documented as of this encounter
--- OUTSIDE RECORDS SUMMARY | 2024-04-27 01:26 | XMS_ITS | Encounter Summary ---
Author Organization [facility] [place] [address] Care Team Providers Care Employee Communications Specialist Name Role Phone Alireza Ojeda DO Primary Care Provider Reason for Visit * Reason Comments Post Op Encounter Details Date Type Department Care Team (Late st Contact Info) Description 03/20/2019 3:45 PM EDT Office [place] [address] Dinora Abad MD [facility] [place] [address] PCO (posterior capsule opacification), bilateral Social History [...] as of this encounter Progress Notes * Dinora Abad MD - 03/20/2019 3:45 PM EDT PCO OU: S/p yag caps OD done on 03/13/19 Doing well today Planned yag caps OS today R/B/A discussed and Genoveva would like to proceed Pseudophakia OU: Observe Plan: YAG Cap OS today Follow up in 1-4 weeks documented in this encounter Miscellaneous Notes * Addendum Note - Dinora Abad MD - 03/20/2019 3:45 PM EDTAddended by: DINORA ABAD on: 03/20/2019 05:32 PM Modules accepted: Orders documented in this encounter Plan of Treatment Upcoming Encounters Date Type Department Care Team (Late st Contact Info) Description 09/17/2024 9:00 AM EST [place] [address] Mily Garcia MD [facility] [place] [address] 09/17/2024 9:45 AM EST Laboratory Appointment Lab [address] [place] [address] 09/17/2024 11:30 AM EST Office [place] [address] Mily Garcia MD [facility] [place] [address] documented as of this encounter Procedures Procedure Name Priority Date/Time Associated Diagnosis Comments CAPSULOTOMY-YAG LASER - OS - LEFT EYE Routine 03/20/2019 5:32 PM EDT PCO (posterior capsule opacification), bilateral documented in this encounter Results * Capsulotomy - Yag Laser - OS - Left Eye (03/20/2019 5:32 PM EDT) Anatomical Region Laterality Modality Other Narrative 03/20/2019 5:32 PM EDT Anesthesia Topical anesthesia was used. Anesthesia medications included Phenylephrine HCL 2.5%, Tropicamide 1%. Laser Information Total spots was 47. The energy was 122.0 mj. Post-op The patient tolerated the procedure well. There were no complications. Notes Procedure: Yag Capsulotomy ??left eye Diagnosis: Opacified posterior lens capsule Location [...] status post YAG Dinora Abad MD OPHTHALMOLOGY SERV[facility] ORDERABLES documented in this encounter Visit Diagnoses Diagnosis PCO (posterior capsule opacification), bilateral documented in this encounter Care Teams Employee Communications Specialist Relationship Specialty Start Date End Date Alireza Ojeda DO [address] [facility] [place] [address] PCP - General 07/16/11 09/05/22 documented as of this encounter
--- OUTSIDE RECORDS SUMMARY | 2024-04-27 01:26 | XMS_ITS | Encounter Summary ---
Author Organization [facility] [place] [address] Care Team Providers Care Binder Technician Name Role Phone Alireza Ojeda DO Primary Care Provider [phone] Encounter Details Date Type Department Care Team (Late st Contact Info) Description 05/18/2013 Telephone [place] [address] Jo-Ann Grubbs APRN [facility] [address] [place] [address] Social History Tobacco Use Types Packs/Day Years Used Date Smoking Tobacco: Never Sex and Gender Information Value Date Recorded Sex Assigned at Female 05/02/2023 5:23 PM EDT Gender Identity Female 05/02/2023 5:23 PM EDT Sexual Orientation Straight 05/02/2023 5: 23 PM EDT documented as of this encounter Miscellaneous Notes * Telephone Encounter - Jo-Ann Grubbs RN - 05/18/2013 10:16 PM EDT Pt emailed me. dexilant not working. Asked if she would like to consider further testing. Ph on meds and/or emptying study. Labs wnl. documented in this encounter Plan of Treatment Upcoming Encounters Date Type Department Care Team (Late st Contact Info) Description 09/17/2024 9:00 AM EST [place] [address] Mily Garcia MD [facility] [place] [address] 09/17/2024 9:45 AM EST Laboratory Appointment Lab [address] [place] [phone] 09/17/2024 11:30 AM EST Office [place] [phone] Mily Garcia MD [facility] [place] [address] documented as of this encounter Visit Diagnoses Not on filedocumented in this encounter Care Teams Binder Technician Relationship Specialty Start Date End Date Alireza Ojeda DO [address] [place] [address] PCP - General 07/16/11 09/05/22 documented as of this encounter
--- OUTSIDE RECORDS SUMMARY | 2024-04-27 01:26 | XMS_ITS | Encounter Summary ---
[place] [address] Care Team Providers Care Automatic Corn Grinder Operator Name Role Phone Sanam Bennett MERARI Primary Care Provider Encounter Details Date Type Department Care Team (Late st Contact Info) Description 09/03/2022 Telephone [place] [phone] Ronel Encinas Social History Tobacco Use Types Packs/Day Years [...] encounter Miscellaneous Notes * Telephone Encounter - Ronel Encinas - 09/03/2022 10:06 AM EST Called pt and LVM. wants to see pt on 10/09/21 for a FUV documented in this encounter Plan of Treatment Upcoming Encounters Date Type Department Care Team (Late st Contact Info) Description 09/17/2024 9:00 AM EST Appointment [place] [phone] Mily Garcia MD [facility] [place] [address] 09/17/2024 9:45 AM EST Laboratory Appointment Lab [address] [place] [address] 09/17/2024 11:30 AM EST Office Visit [place] [address] Mily Garcia MD [facility] [place] [address] documented as of this encounter Visit Diagnoses Not on filedocumented in this encounter Care Teams Automatic Corn Grinder Operator Relationship Specialty Start Date End Date Sanam Bennett APRN [address] [place] [address] [address] [place] [address] PCP - General Family Medicine 09/06/22 documented as of this encounter
--- OUTSIDE RECORDS SUMMARY | 2024-04-27 01:26 | XMS_ITS | Encounter Summary ---
Author Organization [facility] Address [facility] [place] [address] Care Team Providers Care Egg Processing Supervisor Name Role Phone Alireza Ojeda DO Primary Care Provider Encounter Details Date Type Department Care Team (Late st Contact Info) Description 05/25/2013 Orders Only Gastroenterology [place] [phone] Jo-Ann Grubbs APRN [facility] [place] [address] GERD (gastroesophageal reflux disease) (Primary Dx) Social History Tobacco Use Types [...] 09/17/2024 9:00 AM EST Appointment Ultrasound [place] [phone] Mily Garcia MD [facility] [place] [address] 09/17/2024 9:45 AM EST Laboratory Appointment Lab [address] [place] [address] 09/17/2024 11:30 AM EST Office Visit Gastroenterology [place] [address] Mily Garcia MD [facility] [place] [address] documented as of this encounter Procedures Procedure Name Priority Date/Time Associated Diagnosis Comments UPPER GI ENDOSCOPY Routine 05/25/2013 1:05 PM EDT GERD (gastroesophageal reflux disease) documented [...] GERD (gastroesophageal reflux disease)- Primary Esophageal reflux GERD (gastroesophageal reflux disease) Esophageal reflux documented in this encounter Care Teams Egg Processing Supervisor Relationship Specialty Start Date End Date Alireza Ojeda DO [address] [place] [address] PCP - General 07/16/11 09/05/22 documented as of this encounter
--- OUTSIDE RECORDS SUMMARY | 2024-04-27 01:26 | XMS_ITS | Encounter Summary ---
[place] [address] Care Team Providers Care Binder Coverstitch Name Role Phone Alireza Ojeda DO Primary Care Provider [phone] Encounter Details Date Type Department Care Team (Late st Contact Info) Description 08/10/2013 1:00 PM EST Office [place] [address] CLINIC, Krystle Burton RN GERD (gastroesophageal reflux disease) (Primary Dx) [...] as of this encounter Progress Notes * Michael Garcia MD - 08/16/2013 4:22 PM EST [id number]-[id number]-REOL IMPEDANCE AND pH STUDY Genoveva Whiting Female, 58 yrs, 1955 PCP: ALIREZA OJEDA PET CAREGIVER: NONE STUDY DATE: 08/10/13 to 08/11/13 PROVIDER: Michael Garcia, [place], [place] ([id number]) REQUESTING PROVIDER(S): INDICATION Reflux symptoms despite medical therapy. NOTE: This study was performed on 40 mg of Nexium each day. This study was performed at no cost to the patient, as a prior Berry pH capsule study was inadequate due to premature detachment of the Berry pH capsule. METHODS: The procedure was explained to the patient and verbal consent obtained. After topical anesthesia to the nose and oropharynx, a combination impedance-pH catheter (MiaSolé) was passed transnasally and positioned with the pH probe 5.0 cm above the upper border of the LES. Impedance sensor positions were located 3.0, 5.0, 7.0, 9.0, 15.0 and 17.0 cm above the LES. The catheter wassecured and appropriate instruction was provided to the [...] association was poor. Michael Garcia, PhD, MD mathematics technician, [employer] Section of Gastroenterology and Hepatology [facility] [place] [address] V: [phone] F: [phone] ALIZA/johnathon Campbell: 08/11/13 EC/CC: PCP * Krystle Salazar RN - 08/11/2013 11:43 AM EST [id number] Genoveva returned for removal of impedance probe. States she has no issues regarding the test. Discharged from lab * Krystle Salazar RN - 08/10/2013 12:58 PM [...] 09/17/2024 9:00 AM EST [place] [address] Mily Garcia MD [facility] [place] [address] 09/17/2024 9:45 AM EST Laboratory Appointment Lab [address] [place] [address] 09/17/2024 11:30 AM EST Office [place] [address] Mily Garcia MD [facility] [address] documented as of this encounter Visit Diagnoses Diagnosis GERD (gastroesophageal reflux disease)- Primary Esophageal reflux documented in this encounter Care Teams Binder Coverstitch Relationship Specialty Start Date End Date Alireza Ojeda DO [address] [place] [address] PCP - General 07/16/11 09/05/22 documented as of this encounter
--- OUTSIDE RECORDS SUMMARY | 2024-04-27 01:26 | XMS_ITS | Encounter Summary ---
Author Organization [facility] [place] [address] Care Team Providers Care Dixonac Operator Name Role Phone Alireza Ojeda DO Primary Care Provider [phone] Encounter Details Date Type Department Care Team (Late st Contact Info) Description 07/10/2013 5:00 PM EDT Office [place] [address] Michael Garcia MD [facility] [address] [place] [address] Esophageal reflux (Primary Dx) Discharge Disposition: Home Social History [...] Progress Notes * Michael Garcia MD - 11/15/2013 1:08 PM EST Procedure visits only documented in this encounter Plan of Treatment Upcoming Encounters Date Type Department Care Team (Late st Contact Info) Description 09/17/2024 9:00 AM EST [place] [address] Mily Garcia MD [facility] [place] [address] 09/17/2024 9:45 AM EST Laboratory Appointment Lab [address] [place] [address] 09/17/2024 11:30 AM EST Office [place] [address] Mily Garcia MD [facility] [place] [address] documented as of this encounter Visit Diagnoses Diagnosis Esophageal reflux- Primary documented in this encounter Care Teams Dixonac Operator Relationship Specialty Start Date End Date Alireza Ojeda DO [address] [place] [address] PCP - General 07/16/11 09/05/22 documented as of this encounter
--- OUTSIDE RECORDS SUMMARY | 2024-04-27 01:26 | XMS_ITS | Encounter Summary ---
Author Organization [facility] Address [facility] [place] [address] Care Team Providers Care Continuous Linter Drier Operator Name Role Phone Alireza Ojeda DO Primary Care Provider [phone] Encounter Details Date Type Department Care Team (Latest Contact Info) Description 07/07/2013 11:40 AM EDT - 07/07/2013 2:23 PM EDT Hospital Encounter [place] [address] Michael Garcia MD [facility] [place] [address] Que Mejia MD [facility] [place] [address] Discharge Disposition: Home Social History Tobacco Use [...] 37.6 ??C (99.7 ??F) 07/07/2013 12:18 PM E DT Respiratory Rate 16 07/07/2013 1:24 PM EDT Oxygen Saturation 96% 07/07/2013 1:24 PM EDT Inhaled Oxygen Concentration - - Weight - - Height - - Body Mass Index - - documented in this encounter Discharge Instructions * Discharge Instructions* Dick Saldaña RN - 07/07/2013 1:26 PM EDT [...] drainage occurs, please contact your M. D. * Attachments The following attachments cannot be sent through Care Everywhere. * UPPER GI ENDOSCOPY: WHAT TO EXPECT AT HOME (MALAWIAN) documented in this encounter Medications at Time [...] as of this encounter H&P Notes * Que Mejia MD - 07/07/2013 12:50 PM [...] signed. documented in this encounter Miscellaneous Notes * Miscellaneous - Provider, Scanning - 07/07/2013 3:49 PM EDT documented in this encounter Plan of Treatment Upcoming Encounters Date Type Department Care Team (Late st Contact Info) Description 09/17/2024 9:00 AM EST Appointment [place] [address] Mliy Garcia MD [facility] [address] 09/17/2024 9:45 AM EST Laboratory Appointment Lab [address] [place] [address] 09/17/2024 11:30 AM EST Office Visit [place] [address] Mily Garcia MD [facility] [place] [address] documented as of this encounter Procedures Procedure Name Priority Date/Time Associated Diagnosis Comments SURGICAL PATHOLOGY REPORT Routine 07/07/2013 1:33 PM EDT SPECIMEN TO PATHOLOGY Routine 07/07/2013 1:33 PM EDT EGD, UPPER GI ENDOSCOPY (WRVU 2.09) 07/07/2013 1:04 PM EDT GERD (gastroesophageal reflux disease) UPPER GI ENDOSCOPY Routine 07/07/2013 12 :55 PM EDT documented in this encounter Results * Surgical Pathology Report (07/07/2013 1:33 PM EDT) Surgical Pathology Report ? [facility] ? Provider: ?? QUE MEJIA ?Pt. Name: ?? GENOVEVA WHITING ? Acc #: ?[id number] ?Pt. ? Col Date: ?? 07/07/2013 ? /Sex: ?1955,(58 years),Female ? Rec Date: [...] Dashawn Sultana MD ? Pathologist ? (Electronic Signature) ? The attending pathologist whose signature appears on this report has ? reviewed all diagnostic slides and has edited the gross and/or ? microscopic portion of the report in rendering the final pathologic ? diagnosis. ? ---Gross Description--- ? A - Labeled/Fixative: BX of duodenum, formalin. ? Quantity/Size: Five, ranging from 0.2-0.5 cm. ? Tissue Description: Soft de jesus tissue. ? Sections/Processin g: (T1) ??al ? ---Clinical Information--- ? Specimen Submitted: ? A - Bx of duodenum ? Clinical History: ? Patient with history of celiac disease assess for activity ? Clinical Diagnosis: ? [facility] 07/07/2013 1:33 PM EDT Que Mejia MD PATHOLOGY/CYTOLOGY Ana Rosa PIERCE Performing Organization Address [facility] de Phone Number [facility]RIGO * Specimen to Pathology (surgical or derm) (07/07/2013 1:33 PM EDT) AP Specimen 07/07/2013 1:33 PM EDT 07/07/2013 1:33 PM EDT Narrative [facility]ENCOM[facility] VALLEYIUM - 07/07/2013 1:33 PM EDT Specimen requisition ordered. ??Separate Pathology report to follow Que Mejia MD PATHOLOGY/CYTOLOGY O KARI Performing Organization Address [facility] Co de Phone Number [facility] * UPPER GI ENDOSCOPY (07/07/2013 12:55 PM EDT) UPPER GI ENDOSCOPY [facility] Endoscopy Patient Name: Genoveva Whiting ? Procedure Date: 07/07/2013 12:55 PM ? Date of : 1955 ? Age: 58 ? Order #: [id number] ? Procedure: ? Upper GI endoscopy Indications: ? Refractory GERD for Berry capsule Providers: ? Que Mejia MD, Petty Turpin, ? RN, Rhonda Balderas, Electrode Turner And Finisher Referring : ?Alireza Ojeda, DO Medicines: ? Midazolam 2 mg IV, Fentanyl 100 ? micrograms IV Complications: ? No immediate complications. Procedure: ? The procedure, indications, benefits, ? risks and alternatives were explained ? to the patient. Specifically ? discussed were potential ? complications including, but not ? limited to, bleeding, perforation, ? infection, missing a cancer, and ? adverse medication reactions. The ? Endoscope was introduced through the ? mouth, and advanced to the third part ? of duodenum. The patient tolerated ? the procedure well. The upper GI ? endoscopy was accomplished without ? difficulty. The patient tolerated the ? procedure well. ? Findings: ? [...] Normal stomach. ? - Normal examined duodenum. This was ? biopsied. Recommendation: ?- Await pathology results. ? __ Que Mejia MD 07/07/2013 1:19 PM This report has been signed electronically. Number of Addenda: 0 Note Initiated On: 07/07/2013 12:55 PM PROVATION 07/07/2013 12:5 5 PM EDT Alireza Ojeda DO GENERAL SURGICAL ORD ERABLES PROVATION documented in this encounter Visit Diagnoses Not on filedocumented in this encounter Active and Recently Administered Medications Times are shown in EDT. PRN Medication Order 07/05/2013 07/06/2013 07/07/2013 fentaNYL 50mcg/mL injection (CANCELED) ONCE PRN, Starting on Sat07/07/13 at 1307, Until Sat07/07/13 at 1624, Pain, Intra-Operative (Intra-Procedure), Routine 1307 (Given - Provid er: Petty Turpin RN) midazolam (VERSED) injection (CANCELED) ONCE PRN, Starting on Sat07/07/13 at 1307, Until Sat07/07/13 at 1624, Sleep, Intra-Operative (Intra-Procedure), Routine 1307 (Given - Provid er: Petty Turpin RN) documented in this encounter Care Teams Continuous Linter Drier Operator Relationship Specialty Start Date End Date Alireza Ojeda DO [address] [place] [address] PCP - General 07/16/11 09/05/22 documented as of this encounter
--- OUTSIDE RECORDS SUMMARY | 2024-04-27 01:26 | XMS_ITS | Encounter Summary ---
Author Organization [facility] Address [facility] [place] [address] Care Team Providers Care Humanities Coordinator Name Role Phone Alireza Ojeda DO Primary Care Provider [phone] Encounter Details Date Type Department Care Team (Late st Contact Info) Description 07/07/2013 1:00 PM EDT - 07/07/2013 1:30 PM EDT Surgery [place] [address] Que Justin MD [facility] [place] [address] EGD, UPPER GI ENDOSCOPY (WRVU 2.09) Social History Tobacco Use Types Packs/Day Years [...] GI ENDOSCOPY: WHAT TO EXPECT AT HOME (KHMER) documented in this encounter Medications at Time [...] of this encounter H&P Notes * Que Justin MD - 07/07/2013 12:50 PM [...] 09/17/2024 9:00 AM EST Appointment [place] [address] Mily Garcia MD [facility] [place] [address] 09/17/2024 9:45 AM EST Laboratory Appointment Lab [address] [place] [phone] 09/17/2024 11:30 AM EST Office Visit [place] [address] Mily Garcia MD [facility] [place] [address] documented as of this encounter Procedures Procedure [...] 1:33 PM EDT) Surgical Pathology Report ? [facility] ? Provider: ?? QUE JUSTIN ?Pt. Name: ?? GENOVEVA WHITING ? Acc #: ?[id number] ?Pt. ? Col Date: ?? 07/07/2013 ? [...] activity ? Clinical Diagnosis: ? Same TATYANA WARE 07/07/2013 1:33 PM EDT Que Justin MD PATHOLOGY/CYTOLOGY O KARI TATYANA WARE * Specimen to Pathology (surgical or derm) (07/07/2013 1:33 PM EDT) AP Specimen 07/07/2013 1:33 PM EDT 07/07/2013 1:33 PM EDT Narrative TATYANA KNIGHTIUM - 07/07/2013 1:33 PM EDT Specimen requisition ordered. ??Separate Pathology report to follow Que Justin MD PATHOLOGY/CYTOLOGY O KARI TATYANA WARE * UPPER GI ENDOSCOPY (07/07/2013 12:55 PM EDT) UPPER GI ENDOSCOPY [facility] Endoscopy Patient Name: Genoveva Whiting ? Procedure Date: 07/07/2013 12:55 PM ? Date of : 1955 ? Age: 58 ? Order #: [id number] ? Procedure: ? Upper GI endoscopy Indications: ? Refractory GERD for Berry capsule Providers: ? Que Justin MD, Petty Turpin, ? RAÚL, Rhonda Balderas, Family Practice Medical Doctor Referring : ?Alireza Ojeda, DO Medicines: ? [...] Berry capsule was placed by nurse ? [place] ? Impression: ?- Normal esophagus. ? - Z-line regular, 38 cm from the ? incisors. ? - Normal stomach. ? - Normal examined duodenum. This was ? biopsied. Recommendation: ?- Await pathology results. ? __ Que Justin MD 07/07/2013 1:19 PM This [...] Date Dose Rate Site fentaNYL 50mcg/mL injection ONCE PRN, Starting on Sat07/07/13 at 1307, Until Sat07/07/13 at 1624, Pain, Intra-Operative (Intra-Procedure), Routine Given 07/07/2013 1:07 PM EDT 100 mcg Right Arm midazolam (VERSED) injection ONCE PRN, Starting on Sat07/07/13 at 1307, Until Sat07/07/13 at 1624, Sleep, Intra-Operative (Intra-Procedure), Routine Given 07/07/2013 1:07 PM EDT 2 mg Right Arm documented in this encounter Active and Recently [...] RN) documented in this encounter Care Teams Humanities Coordinator Relationship Specialty Start Date End Date Alireza Ojeda DO [address] [place] [address] [address] [place] [address] PCP - General 07/16/11 09/05/22 documented as of this encounter
--- OUTSIDE RECORDS SUMMARY | 2024-04-27 01:26 | XMS_ITS | Encounter Summary ---
Author Organization [facility] Address [address] [place] [address] Care Team Providers Care Kelp Or Seagrass Gatherer Name Role Phone Alireza Ojeda DO Primary Care Provider [phone] Encounter Details Date Type Department Care Team (Late st Contact Info) Description 06/27/2022 Lab Requisition [facility] Pathology & Laboratory Medicine - [facility] [address] [place] [address] Outr Resulting Lab, Provider Social History Tobacco [...] Procedure Name Priority Date/Time Associated Diagnosis Comments URINE MONOCLONAL PROTEIN STUDY (UPEP WITH IMMUNOTYPING) PERFORMABLE Today 06/27/2022 13:30 EDT PROTEIN, TOTAL, RANDOM, URINE Today 06/27/2022 13:30 EDT URINE MONOCLONAL PROTEIN STUDY (UPEP WITH IMMUNOTYPING) Routine 06/27/2022 13:30 EDT documented in this encounter Results * URINE MONOCLONAL PROTEIN STUDY (UPEP WITH IMMUNOTYPING) PERFORMABLE (06/27/2022 13:30 EDT) Albumin, Urine % 13.3 N/A % 06/28/20 22 14:21 EDT [facility] Albumin, Urine mg/dL 1 mg/dL 06/28/2022 14:21 [facility] Globulins, Urine % 86.7 N/A % 06/28/2022 14:21 T [facility] Globulins, Urine mg/dL 5 mg/dL 06/28/2022 14:21 [facility] UPEP Comment See Comment 06/28/2022 14:21 [facility] Comment:Electrophoresis scre ening performed; Immunotyping to follow. See scanned/supplementary report. Immunotyping, Urine Current Interpretatio n: Negative for free monoclonal light chains. Reviewed by: David Mata MD 06/28/2022 1330 06/28/2022 14:21 T [facility] Total Protein, Urine 6 See Note mg/dL 06/28/2022 14:21 T [facility] Comment: NOTE: Reference range has not been established for total protein concentration in random urine specimens. Urine URINE SPECIMEN COLLECTION, CLEAN CATCH / Unknown 06/27/2022 13:30 EDT 06/27/2022 21:16 EDT Provider Outr Resulting Lab URINALYSIS O RDERABLES Performing Organization Address [facility] de Phone Number [facility] [address] [place] [address] * PROTEIN, TOTAL, RANDOM, URINE (06/27/2022 13:30 EDT) Urine URINE SPECIMEN COLLECTION, CLEAN CATCH / Unknown 06/27/2022 13:30 EDT 06/27/2022 21:16 EDT Provider Outr Resulting Lab URINALYSIS O RDERABLES Performing Organization Address [facility] Co de Phone Number [facility] [address] [place] [address] documented in this encounter Visit Diagnoses Not on filedocumented in this encounter Care Teams Kelp Or Seagrass Gatherer Relationship Specialty Start Date End Date Alireza Ojeda DO [address] [place] [address] PCP - General 12/14/15 documented as of this encounter
--- OUTSIDE RECORDS SUMMARY | 2024-04-27 01:26 | XMS_ITS | Encounter Summary ---
Author Organization [facility] Address [facility] [place] [address] Care Team Providers Care Group Social Worker Name Role Phone Alireza Ojeda DO Primary Care Provider Reason for Visit * Reason Comments Follow-up Encounter Details Date Type Department Care Team (Late st Contact Info) Description 10/06/2013 3:30 PM EST Follow-[place] [address] Jo-Ann Grubbs APRN [facility] [place] [address] Esophageal reflux (Primary Dx) Discharge Disposition: Home [...] documented in this encounter Progress Notes * Jo-Ann Grubbs RN - 10/06/2013 3:21 PM EST Pt continues with ongoing regurgitation, bad taste in her mouth despite nexium 40mg qd. Has tried Dexilant 60mg bid with no relief. Tried Prilosec 40mg bid with no relief. Tried Prevacid 30mg bid with no relief. No substernal burning. Berry ph premature detachment. Impedance on Nexium 40mg qd, negative. However, pt states she did not eat much. Upper endoscopy normal exam. Bx Coombs 1 celiac disease findings. Gastric emptying study normal. Feels hang up of food in throat. Eventually passes. No regurgitation of bolus. No odynophagia, n/v,chest pain, ent concerns. Low fodmap diet helpful. Less gas, bloat. Has gained eight pounds. No changes in appetite. Stools are hard. Has to strain. Has at least 3 BMs per week. No blood in stool. Tried colace, caused cramping. Colonoscopy 2010, [facility], normal exam. Plan: 1. Gerd: Nexium 40mg [...] 09/17/2024 9:00 AM [place] [address] Mily Garcia MD [facility] [place] [place] [address] 09/17/2024 9:45 AM EST Laboratory Appointment Lab [address] [place] [address] 09/17/2024 11:30 AM EST Office [place] [address] [facility] [place] [place] [address] documented as of this encounter Visit Diagnoses Diagnosis Esophageal reflux- Primary documented in this encounter Care Teams Group Social Worker Relationship Specialty Start Date End Date Alireza Ojeda DO [address] [place] [address] PCP - General 07/16/11 09/05/22 documented as of this encounter
--- OUTSIDE RECORDS SUMMARY | 2024-04-27 01:26 | XMS_ITS | Encounter Summary ---
Author Organization [facility] Address [facility] [place] [address] Care Team Providers Care Benchroom Shop Optician Name Role Phone Sanam Bennett MERARI Primary Care Provider Reason for Visit * Auth/Cert (Routine) Specialty [...] ENDOSCOPIC ULTRASOUND COLONOSCOPY, DIAGNOSTIC Matthew Najera MD [facility] [place] [address] [facility] Referral ID Status Reason Start Date Expiration Date Visits Re quested Visits Authorized [id number] 1 1 Encounter Details Date Type Department Care Team (Latest Contact Info) Description 09/10/2022 2:03 PM EST - 09/10/2022 5:42 PM EST Hospital En[place] [address] Matthew Najera MD [facility] [place] [address] Discharge Disposition: Home Social History Tobacco Use [...] the day after the procedure, use an kbfp-dox-wepaetw spray to numb your throat. Sucking on [...] occurs, please contact your Doctor. Please call [phone] before 8pm Mon-Fri with problems, questions or concerns. If you call after 8pm or on weekends, call the Hospital at [phone] and ask to speak to the Electric Motor Analyst innovation manager and the concrete pipe making machine operator will contact that person for you. When should you call for help? Call 559 anytime you think you may need emergency [...] any problems. Where can you learn more? [facility] View your After Visit Summary and more online at [email or web address] If you would like to provide feedback about your hospital experience, please call the Office of Patient and Family Relations at . If you have received this After Visit Summary in error, please immediately return it in person to the department, or notify the Count Includes [facility] Privacy Office by calling toll free at between the hours of 8AM and 5PM to arrange for our retrieval of the documents at no cost to you. Content Version: 12.2 ?? 8473-0368 [employer]. Care instructions adapted under license by [facility]. If you have questions about a medical condition or this instruction, always ask your healthcare professional. [employer] disclaims any warranty or liability for your [...] occurs, please contact your Doctor. Please call [phone] before 8pm Mon-Fri with problems, questions or concerns. If you call after 8pm or on weekends, call the Hospital at [phone] and ask to speak to the Electric Motor Analyst innovation manager and the concrete pipe making machine operator will contact that person for you. [...] any problems. Where can you learn more? [facility] View your After Visit Summary and more online at [email or web address] If you would like to provide feedback about your hospital experience, please call the Office of Patient and Family Relations at . If you have received this After Visit Summary in error, please immediately return it in person to the department, or notify the Count Includes [facility] Privacy Office by calling toll free at between the hours of 8AM and 5PM to arrange for our retrieval of the documents at no cost to you. Content Version: 12.2 ?? 8599-9990 [employer]. Care instructions adapted under license by [facility]. If you have questions about a medical condition or this instruction, always ask your healthcare professional. [employer] disclaims any warranty or liability for your [...] occurs, please contact your Doctor. Please call [phone] before 8pm Mon-Fri with problems, questions or concerns. If you call after 8pm or on weekends, call the Hospital at [phone] and ask to speak to the Electric Motor Analyst innovation manager and the concrete pipe making machine operator will contact that person for you. [...] any problems. Where can you learn more? [facility] View your After Visit Summary and more online at [email or web address] If you would like to provide feedback about your hospital experience, please call the Office of Patient and Family Relations at . If you have received this After Visit Summary in error, please immediately return it in person to the department, or notify the Count Includes [facility] Privacy Office by calling toll free at between the hours of 8AM and 5PM to arrange for our retrieval of the documents at no cost to you. Content Version: 12.2 ?? [phone] [employer]. Care instructions adapted under license by [facility]. If you have questions about a medical condition or this instruction, always ask your healthcare professional. [employer] disclaims any warranty or liability for your [...] 09/17/2024 9:00 AM EST [place] [phone] Mily Garcia MD [facility] [place] [address] 09/17/2024 9:45 AM EST Laboratory Appointment Lab [address] [place] [phone] 09/17/2024 11:30 AM EST Office [place] [phone] Mily Garcia MD [facility] [place] [address] documented as of this encounter Procedures Procedure Name Priority Date/Time Associated Diagnosis Comments SPECIMEN TO PATHOLOGY Routine 09/10/2022 3:42 PM EST SPECIMEN TO PATHOLOGY Routine 09/10/2022 3:42 PM EST SURGICAL PATHOLOGY REPORT Routine 09/10/2022 3:35 PM EST Needle Biopsy Liver ([id number]) 09/10/2022 2:57 PM EST Elevated liver enzymes DOHERTY (nonalcoholic steatohepatitis) Upgi Endoscopy W/Us Fn Bx ([id number]) 09/10/2022 2:57 PM EST Elevated liver enzymes DOHERTY (nonalcoholic steatohepatitis) Colonoscopy, Diagnostic ([id number]) 09/10/2022 2:57 PM EST Elevated liver enzymes DOHERTY (nonalcoholic steatohepatitis) Endoscopic Us Exam, Esoph ([id number]) 09/10/2022 2:57 PM EST Elevated liver enzymes DOHERTY (nonalcoholic steatohepatitis) UPPER EUS-ENDOSCOPIC ULTRASOUND Routine 09/10/2022 2:48 PM EST COLONOSCOPY Routine 09/10/2022 2:46 PM EST documented in this encounter Results * Specimen to Pathology (09/10/2022 3:42 PM EST) AP Specimen 09/10/2022 3:42 PM EST 09/10/2022 3:42 PM EST Narrative [facility] - 09/10/2022 3:42 PM EST Specimen requisition ordered. ??Separate Pathology report to follow Matthew Naejra MD PATHOLOGY/CYTOLOGY ORDERABLES [facility] [place] [address] * Specimen to Pathology (09/10/2022 3:42 PM EST) AP Specimen 09/10/2022 3:42 PM EST 09/10/2022 3:42 PM EST Narrative [facility] - 09/10/2022 3:42 PM EST Specimen requisition ordered. ??Separate Pathology report to follow Matthew Najera MD PATHOLOGY/CYTOLOGY ORDERABLES [facility] [place] [id number] * Surgical Pathology Report (09/10/2022 3:35 PM EST) FINAL DIAGNOSIS (AP) [id number] ? Location: 4T; EA06; A The signing [...] of lymphocytes and histiocytes are also noted. Sgkk-ye-qaaahcou steatosis is present. Trichrome stain highlights advanced [...] concurs with the interpretation. Electronically signed by: ?Kayy GO, Dashawn Verified: ??09/18/2022 12:15 ??Pathologist Performed at: ??-[facility] [place], [place] [address] Tread Tuber Machine Operator: Dagmar Duong MD, FCAP, ??CLIA Certificate: [id number] ADDITIONAL STUDIES Whole slide scan: B1, trichrome [...] labeled B1. ??pps 09/18/2022 12:15 PM EST [facility] 09/10/2022 3:35 PM EST Matthew Najera MD PATHOLOGY/CYTOLOGY ORDERABLES [facility] [place] [address] * UPPER EUS-ENDOSCOPIC ULTRASOUND (09/10/2022 2:48 PM EST) UPPER ENDOSCOPIC ULTRASOUND [facility] Endoscopy Procedure Date: 09/10/2022 2:48 PM ? Patient Name: Genoveva Whiting ? Date of : 1955 ? Age: 67 ? Order #: [id number] ? Instrument Name: [id number] ? Procedure: ? Upper EUS Indications: ? Elevated liver tests Providers: ? Matthew Najera MD, Yunior Neri ? RAÚL Jay, Jelena Galaviz Referring : ?Genoveva Maher MD, Sanam ? Adjovu Medicines: [...] * COLONOSCOPY (09/10/2022 2:46 PM EST) COLONOSCOPY [facility] Endoscopy Procedure Date: 09/10/2022 2:46 PM ? Patient Name: Genoveva Whiting ? Date of : 1955 ? Age: 67 ? Order #: [id number] ? Instrument Name: [id number] ? Procedure: ? Colonoscopy Indications: ? Family history of colon cancer in ? multiple first-degree relatives Providers: ? Matthew Najera MD, Yunior Neri ? RAÚL Jay, Jelena Galaviz Referring : ?Genoveva Maher MD, Sanam ? Adjovu Medicines: [...] Diagnoses Not on filedocumented in this encounter Administered Medications Inactive Administered [...] RN) documented in this encounter Care Teams Benchroom Shop Optician Relationship Specialty Start Date End Date Sanam Bennett APRN [address] [place] [address] [address] [place] [address] PCP - General Family Medicine 09/06/22 documented as of this encounter
--- OUTSIDE RECORDS SUMMARY | 2024-04-27 01:26 | XMS_ITS | Encounter Summary ---
[place] [address] Care Team Providers Care Grades 1 Through 5 Teacher Name Role Phone Alireza Ojeda DO Primary Care Provider Encounter Details Date Type Department Care Team (Late st Contact Info) Description 08/27/2022 Telephone [place] [address] Slime Renae Social History Tobacco Use Types Packs/Day Years [...] encounter Miscellaneous Notes * Telephone Encounter - Slime Renae - 08/27/2022 4:08 PM EST Genoveva Whiting [id number] Diagnosis/Indication:DOHERTY, Fibroscan suggest cirrhosis, celiac, dilated CBD (s/p GB surgery), fhx of colon ca, obtain liver biopsy if no obvious signs of portal hypertension, duodenal bx for f/u celiac Please review patient chart to confirm if previous Endoscopy procedure was performed within system. If yes, take note of Anesthesia type used. If previous procedure found, and with MAC/propofol Anesthesia support was used, schedule this procedure with Anesthesia and skip the Anesthesia portion of questions. If not performed within [facility] system, not performed at all, or performed with IVCS, ask Anesthesia questions. SCHEDULING QUESTIONS (ask all patient these questions) 1. Have you ever had a/an eus & colo before? Yes: Date colo in [place] If yes, did you have any problems with the procedure (such as waking up during the procedure, pain or difficulties afterwards, etc.)? No What type of sedation was used: Other: unknown 2. Do you take any blood thinners or have you been diagnosed with a bleeding disorder that increases your risk of bleeding with procedures? No 3. Do you have a Pacemaker or Defibrillator device? If yes, send pool message to Cardiology with patient information and date or procedure. No 4. Are you a diabetic? If yes, call PCP/managing provider to discuss use of prep and any questions or concerns related to. No 5. Do you take any iron supplements or vitamins that contain iron? Yes 6. Do you have a preference regarding the gender of your provider? No ANESTHESIA QUESTIONS (YES to any question, please book with Anesthesia support) 7. Have you ever been diagnosed with any of the following: Pulmonary Hypertension, Atrial Fibrillation (A-Fib) and/or Congential Heart Disease? No 8. Have you ever had an allergic or adverse reaction to Fentanyl or Versed? Yes Had too much once 9. Have you had a problem with sedation or anesthesia? (Waking up during procedure, extreme confusion after, etc.) No 10. Do you have a diagnosis of Obstructive Sleep Apnea? Yes 11. Do you use a c-pap machine? C-Pap 12. Do you use an oxygen tank at home? No 13. Do you use a rescue inhaler more than twice per day? (COPD, severe asthma) No 14. Do you experience breathing problems when you lay flat for a period of time? No 15. Do you take prescription narcotic pain medications, including suboxone or methodone? No SCHEDULING CONFIRMATIONS: Please note any and all parts of your conversation with the patient here. 16. We offer all new patients an opportunity to have an appointment with one of our associate care providers to learn more about your upcoming procedure, ask questions and get answers. These appointments are offered via telehealth. Would you be interested in scheduling this appointment? (Only ask if NEW referral patient; skip this question if GI provider ordered the procedure.) No 17. Is there any other information or concerns you would like to us to share with your care team inrelation to your upcoming scheduled procedure? No 18. You must have a responsible democrat who will drive you to your procedure, stay on campus for the entire duration of your procedure, and drive you home from your procedure. Who will likely be your four horse hitch driver for the procedure? *Please Verify the height and weight, and adjust if height and/or weight have changed* Estimated body mass index is 36.22 kg/m?? as calculated from the following: Height as of an earlier encounter on 08/27/22: 154.9 cm (5' 1). Weight as of an earlier encounter on 08/27/22: 87 kg (191 lb 11.2 oz). Age:67 y.o. documented in this encounter Plan of Treatment Upcoming Encounters Date Type Department Care Team (Late st Contact Info) Description 09/17/2024 9:00 AM EST [place] [address] Mily Garcia MD [facility] [place] [address] 09/17/2024 9:45 AM EST Laboratory Appointment Lab [address] [place] [phone] 09/17/2024 11:30 AM EST Office [place] [address] Mily Garcia MD [facility] [place] [address] documented as of this encounter Visit Diagnoses Not on filedocumented in this encounter Care Teams Grades 1 Through 5 Teacher Relationship Specialty Start Date End Date Alireza Ojeda DO [facility] [address] [place] [address] PCP - General 07/16/11 09/05/22 documented as of this encounter
--- OUTSIDE RECORDS SUMMARY | 2024-04-27 01:26 | XMS_ITS | Encounter Summary ---
Author Organization [facility] Address [address] [place] [address] Care Team Providers Care Alumnae Secretary Name Role Phone Alireza Ojeda DO Primary Care Provider [phone] Encounter Details Date Type Department Care Team (Late st Contact Info) Description 01/16/2024 Lab Requisition [facility] Pathology & Laboratory Medicine [facility] [address] [place] [address] Outr Resulting Lab, Provider Social History Tobacco [...] Diagnosis Comments TISSUE TRANSGLUTAMINASE ANTIBODY, IGA Routine 01/16/2024 12:54 EDT AFP TUMOR MARKER Routine 01/16/2024 12:5 4 EDT documented in this encounter Results * AFP TUMOR MARKER (01/16/2024 12:54 EDT) AFP Tumor Marker 3.0 <8.1 ng/mL 01/17/2024 9:48 EDT [facility] Comment: AFP Tumor Marker cannot be interpreted in females. ?? NOTE: Serum AFP concentrations should not be interpreted as absolute evidence for the presence or absence of malignant disease. Assayed on Siemens ADVIA Centaur XPT using chemiluminescent technology. ??Values obtained by using different assay methods cannot be used interchangeably. Blood VENOUS BLOOD / Unknown 01/16/2024 12:54 EDT 01/16/2024 22:22 EDT Provider Outr Resulting Lab CHEMISTRY & BLOOD GAS ORDERABLES Performing Organization Address [facility] Co de Phone Number [facility] [address] [place] [address] [phone] * TISSUE TRANSGLUTAMINASE ANTIBODY, IGA (01/16/2024 12:54 EDT) Tissue Transglutaminase Antibody, IgA <4.0 <20.0 CU 01/21/2024 11:40 EDT [facility] Comment: Negative: <20.0 CU Weak Positive: 20.0-30.0 CU Positive: >30.0 CU Results were obtained with the [employer] Flash h-tTG IgA chemiluminescent immunoassay. Values obtained with different manufacturers' assay methods may not be used interchangeably. Blood VENOUS BLOOD / Unknown 01/16/2024 12:54 EDT 01/16/2024 22:22 EDT Provider Outr Resulting Lab IMMUNOLOGY A ND SEROLOGY ORDERABLES Performing Organization Address [facility] Co de Phone Number [facility] [address] [place] [address] [phone] documented in this encounter Visit Diagnoses Not on filedocumented in this encounter Care Teams Alumnae Secretary Relationship Specialty Start Date End Date Alireza Ojeda DO [address] [place] [address] PCP - General 12/14/15 documented as of this encounter
--- OUTSIDE RECORDS SUMMARY | 2024-04-27 01:26 | XMS_ITS | Encounter Summary ---
Author Organization [place] [address] Care Team Providers Care Ship'S Pilot Name Role Phone Alireza Ojeda DO Primary Care Provider [phone] Reason for Visit * Reason Comments Skin Check Encounter Details Date Type Department Care Team (Late st Contact Info) Description 06/26/2013 8:30 AM EDT Office Visit Dermatology [address] [place] [address] [address] [place] [address] Sergo Valle MD [address] [place] [address], [facility] [address] History of basal cell carcinoma (Primary Dx) Social History Tobacco Use Types Packs/Day Years Used Date Smoking Tobacco: Never Sex and Gender Information Value Date Recorded Sex Assigned at Female 05/02/2023 5:23 PM EDT Gender Identity Female 05/02/2023 5:23 PM EDT Sexual Orientation Straight 05/02/2023 5: 23 PM EDT documented as of this encounter Progress Notes * Sergo Valle MD - 06/26/2013 8:51 AM EDT Problem is: 1. Two-year skin checkup. 2. History of BCCAs, right forehead, right tip of nose, left shoulder, right lateral eyebrow, previously treated in [place]. 3. History of BCCA, right medial cheek, [...] 09/17/2024 9:00 AM EST [place] [address] Mily Garcia MD [facility] [place] [address] 09/17/2024 9:45 AM EST Laboratory Appointment Lab [address] [place] [address] 09/17/2024 11:30 AM EST Office [place] [address] Mily Garcia MD [facility] [place] [address] documented as of this encounter Visit Diagnoses Diagnosis History of basal cell carcinoma- Primary Personal history of other malignant neoplasm of skin documented in this encounter Care Teams Ship'S Pilot Relationship Specialty Start Date End Date Alireza Ojeda DO [address] [place] [address] PCP - General 07/16/11 09/05/22 documented as of this encounter
--- OUTSIDE RECORDS SUMMARY | 2024-04-27 01:26 | XMS_ITS | Encounter Summary ---
Author Organization [facility], Later [facility] Address [facility] [place] [address] Care Team Providers Care Cardiac Care Unit Nurse Name Role Phone Alireza Ojeda DO Primary Care Provider [phone] Reason for Visit * Reason Comments GI Problem Encounter Details Date Type Department Care Team (Late st Contact Info) Description 05/06/2013 1:00 PM EDT Office [place] [address] Jo-Ann Grubbs APRN [facility] [address] [place] [address] Gastritis (Primary Dx) Discharge Disposition: Home Social History [...] in this encounter Progress Notes * Jo-Ann Grubbs, RN - 05/06/2013 1:14 PM EDT Section of Gastroenterology and Hepatology [address] [place], [place] [id number] .Genoveva Almonteith : 1955 Patient is here for further evaluation of gastrointestinal symptoms at the request of Alireza Ojeda DO. HPI: Dx many years ago with celiac disease. Per pt she had an egd/small bowel bx which dx celiac. Since then has been following a gluten free diet. Upper endoscopy 11/2012, [facility], per notes showed inactive celiac disease and [...] mucous in stool. No incontinence. Colonoscopy 2010, [facility], normal exam per pt. Received test results during visit. Upper endoscopy [facility] 2010: duodenum mucosa blunted, gastric antrum had multiple petechial hemorrhages which continued up to the greater curvature, with edema and erythema of the gastric antrum. Bx showed chronic nonspecific duodenitis, rare mild villous blunting, slight increase in intraepithelial lymphocytes. Gastric antral mucosa with no specific pathological features Upper endoscopy [facility] 2013. Duodenum mucosa blunted. Gastric antrum had edema and erythema. Bx of duodenum did not show worrisome features, antral mucosa with chronic focally active gastritis, h. Pylori negative. Colonoscopy 2010, [facility], normal exam. History Social History ??? Marital [...] tablet, Take 1 mg by mouth nightly., Disp:, Rfl: ; sucralfate (CARAFATE) 1 gram tablet, [...] ORAL, Take 50 mg by mouth 2 times daily., Disp: , Rfl: ; DULOXETINE HCL (CYMBALTA [...] ?medications (has stopped asa). Will change ppi to dexilant 60mg bid,30 minutes before breakfast and supper.May need to consider repeat egd to assesshealing. Obtain labs today to sore out autoimmune gastritis (intrinsic factor antibody, parietal cell antibody, ttg/IgA, cbc, anemia panel). Continue with carafate qid. 2. Regurgitation: ?effectiveness of ppi. Will try new one. If not effective consider ph testing on medications. Consider role of gastric emptying study and motility of stomach ?delay. gerd diet and lifestyle modifications. 3. Celiac: gluten free diet. Given results of bx, ?100% compliance. May need to refer to GI stand up comedian. 4. Gas/bloat: fodmap diet 5. Given family [...] 09/17/2024 9:00 AM [place] [address] [facility] [place] [address] 09/17/2024 9:45 AM EST Laboratory Appointment Lab [address] [place] [phone] 09/17/2024 11:30 AM EST Office Visit Gastroenterology at [facility] [place] [address] [facility] [place] [address] documented as of this encounter Procedures Procedure Name Priority Date/Time Associated Diagnosis Comments PARIETAL CELL ANTIBODY IGG Routine 05/06/2013 2:10 PM EDT Gastritis DIFFERENTIAL, AUTOMATED Routine 05/06/2013 2:10 PM EDT INTRINSIC FACTOR BLOCKING ANTIBODY Routine 05/06/2013 2:10 PM EDT Gastritis IRON AND TIBC Routine 05/06/2013 2:10 PM EDT Gastritis CBC (WITH DIFF) Routine 05/06/2013 2:10 PM EDT Gastritis FOLATE, SERUM Routine 05/06/2013 2:10 PM EDT Gastritis FERRITIN Routine 05/06/2013 2:10 PM EDT Gastritis VITAMIN B12 Routine 05/06/2013 2:10 PM EDT Gastritis documented in this encounter Results * Differential, Automated (05/06/2013 2:10 PM EDT) Neutrophils % 46.9 34.0 - 71.0 % CERNER MILLENNIUM Neutr Abs (ANC) 3.48 1.50 - 6.30 x10(3)/mcL CERNER MILLENNIUM Lymphocytes % 42.9 19.0 - 53.0 % CERNER MILLENNIUM Lymphocytes Abs 3.2 1.0 - 3.6 x10(3)/mcL CERNER MILLENNIUM Monocytes % 7.2 4.0 - 13.0 % CERNER MILLENNIUM Monocyte Abs 0.5 0.2 - 1.0 x10(3)/mcL CERNER MILLENNIUM Eosinophils % 2.2 0.0 - 7.0 % CERNER MILLENNIUM Eosinophils Abs 0.2 0.0 - 0.5 x10(3)/mcL CERNER MILLENNIUM Basophils % 0.5 0.0 - 2.0 % CERNER MILLENNIUM Basophils Abs 0.0 0.0 - 0.2 x10(3)/mcL CERNER MILLENNIUM Immature Gran % 0.30 0.00 - 0.66 % CERNER MILLENNIUM Comment: Immature granulocytes(IG's)percentage and absolute count will include metamyelocytes, myelocytes, and promyelocytes. Blood smears from CBCs yielding IG's will be scanned manually for concordance. If this scan disagrees with the automated IG or if promyelocytes are noted, a manual differential will be performed. Yuliet Gran Abs 0.02 0.00 - 0.05 x10(3)/mcL CERNER MILLENNIUM Blood specimen (specimen) 05/06/2013 2:10 PM EDT 05/06/2013 2:12 PM EDT Michael Garcia MD HEMATOLOGY ORDERABLE S Performing Organization Address [facility] Co de Phone Number TATYANA WALKERENNIUM * Folate, serum (05/06/2013 2:10 PM EDT) Folate Lvl >20.0 4.6 - 34.8 ng/mL TATYANA WALKERENNIUM Blood specimen (specimen) 05/06/2013 2:10 PM EDT 05/06/2013 2:12 PM EDT Narrative Resulting Agency Comment Spec In Lab Michael Garcia MD CHEMISTRY ORDERABLES Performing Organization Address [facility] Co de Phone Number [facility] * (ABNORMAL) Vitamin B12 (05/06/2013 2:10 PM EDT) Vitamin B-12 1009(H) 207 - 974 pg/mL TATYANA WALKERENNIUM Blood specimen (specimen) 05/06/2013 2:10 PM EDT 05/06/2013 2:12 PM EDT Narrative Resulting Agency Comment Spec In Lab Michael Garcia MD CHEMISTRY ORDERABLES Performing Organization Address [facility] de Phone Number CERARPIT WALKERENNIUM * Ferritin (05/06/2013 2:10 PM EDT) Ferritin 42 30 - 400 ng/mL CERNER MILLENNIUM Comment: Pediatric reference ranges not verified at [facility], interpret with caution. Reference ranges for females greater than 50 years of age approach values for men, i.e., 30-400 ng/mL. Blood specimen (specimen) 05/06/2013 2:10 PM EDT 05/06/2013 2:12 PM EDT Narrative Resulting Agency Comment Spec In Lab Michael Garcia MD CHEMISTRY ORDERABLES Performing Organization Address [facility] de Phone Number [facility] * Iron and TIBC (05/06/2013 2:10 PM EDT) Pathologist [facility] Iron 97 30 - 150 mcg/dL CERBANNER MILLENNIUM TIBC 325 250 - 450 mcg/dL [facility] Iron Saturation 30 20 - 50 % [facility] MILLENNIUM Blood specimen (specimen) 05/06/2013 2:10 PM EDT 05/06/2013 2:12 PM EDT Narrative Resulting Agency Comment Spec In Lab Michael Garcia MD CHEMISTRY ORDERABLES Performing Organization Address [facility] de Phone Number [facility] * CBC (with Diff) (05/06/2013 2:10 PM EDT) WBC 7.4 4.0 - 10.0 x10(3)/mcL [facility] MILLENNIUM RBC 4.20 3.93 - 5.22 x10(6)/mcL CERBANNER MILLENNIUM Hemoglobin 11.9 11.2 - 15.7 gm/dL CERBANNER MILLENNIUM Hematocrit 36.0 34.0 - 45.0 % [facility] MILLENNIUM MCV 85.7 79.0 - 94.0 fL CERBANNER MILLENNIUM MCH 28.3 26.6 - 32.2 pg [facility] MCHC 33.1 32.0 - 36.5 gm/dL [facility] Platelets 284 145 - 370 x10(3)/mcL CERNER MILLENNIUM RDWSD 43.0 35.0 - 46.0 fL CERNER MILLENNIUM RDWCV 13.8 10.9 - 14.4 % CERNER MILLENNIUM MPV 10.1 9.0 - 12.0 fL CERNER MILLENNIUM Blood specimen (specimen) 05/06/2013 2:10 PM EDT 05/06/2013 2:12 PM EDT Narrative Resulting Agency Comment Spec In Lab Michael Garcia MD HEMATOLOGY ORDERABLE S CERARPIT WALKERENNIUM * Parietal Cell Antibody IgG (05/06/2013 2:10 PM EDT) Pathologist [facility] Parietal Cell Ab, IgG <10.0 <=20.0 (Negative) [facility] M[facility] Comment: Test Performed by: [place] [address] Chain Builder: Danny Tucker III, M.D. Blood specimen (specimen) 05/06/2013 2:10 PM EDT 05/06/2013 4:21 PM EDT Narrative Resulting Agency Comment Spec In Lab Michael Garcia MD IMMUNOLOGY ORDERABLE S Performing Organization Address [facility] de Phone Number TATYANA KNIGHTIUM * Intrinsic Factor Blocking Antibody (05/06/2013 2:10 PM EDT) Pathologist [facility] IF Ab Negative Negative CERNER MILLENNIUM Comment: Positive in 50% of persons with pernicious anemia. Test Performed by: [facility] [address] [address] Chain Builder: Estefany De La Torre, Ph.D. Blood specimen (specimen) 05/06/2013 2:10 PM EDT 05/06/2013 4:19 PM EDT Narrative Resulting Agency Comment Spec In Lab Michael Garcia MD IMMUNOLOGY ORDERABLE S CERNER MILLENNIUM documented in this encounter Visit Diagnoses Diagnosis Gastritis- Primary Unspecified gastritis and gastroduodenitis without mention of hemorrhage documented in this encounter Care Teams Cardiac Care Unit Nurse Relationship Specialty Start Date End Date Alireza Ojeda DO [address] [place] [address] PCP - General 07/16/11 09/05/22 documented as of this encounter
--- OUTSIDE RECORDS SUMMARY | 2024-04-27 01:26 | XMS_ITS | Encounter Summary ---
Author Organization [facility] [address] Care Team Providers Care Manager Of Revenue Name Role Phone Alireza Ojeda DO Primary Care Provider Encounter Details Date Type Department Care Team (Latest Contact Info) Description 07/20/2013 Unscheduled [place] [address] Michael Garcia MD [facility] [place] [address] GERD (gastroesophageal reflux disease) (Primary Dx) Social [...] Progress Notes * Michael Garcia MD - 07/22/2013 8:09 AM EDT [id number] WIRELESS pH CAPSULE STUDY AFTER UPPER ENDOSCOPY Genoveva Whiting Female, 58 yrs,1955 PCP: ALIREZA OJEDA PACKAGING MATERIALS INSPECTOR: NONE STUDY DATES: 07/07/13 to 07/09/13 INTERPRETATION DATE: 07/20/13 PROVIDER: Michael Garcia PhD, ([id number]) INDICATION Persistent reflux symptoms despite medical therapy. NOTE: This study is performed on 60 mg of Dexilant twice daily. METHODS After upper endoscopy where landmarks were visualized and measured, in a supervised setting, and after informed consent, a Berry pH telemetry capsule was deployed orally and attached to the esophagealwall at 5 cm above the upper border [...] premature detachment of the Berry pH capsule. Th e pattern described above in the methods section is consistent with premature detachment of the Berry pH capsule. No meaningful data can be obtained. RECOMMENDATION Schedule 24-hour impedance-pH study on 60 mg of Dexilant twice daily to ensure that meaningful data is obtained on the second study. The patient will not be charged for this study. Michael Garcia MD, PhD parcel post weigher, [facility] [place] [facility] Section of Gastroenterology [place] [address] V: [phone] F: [phone] BEL/johnathon EC/CC: PCP Jo-Ann Grubbs APRN documented in this encounter Plan of Treatment Upcoming Encounters Date Type Department Care Team (Late st Contact Info) Description 09/17/2024 9:00 AM [place] [address] Mily Garcia MD [facility] [place] [address] 09/17/2024 9:45 AM EST Laboratory Appointment Lab [address] [place] [address] 09/17/2024 11:30 AM EST Office [place] [address] Mily Garcia MD [facility] [place] [address] documented as of this encounter Visit Diagnoses Diagnosis GERD (gastroesophageal reflux disease)- Primary Esophageal reflux documented in this encounter Care Teams Manager Of Revenue Relationship Specialty Start Date End Date Alireza Ojeda DO [address] [place] [address] PCP - General 07/16/11 09/05/22 documented as of this encounter
--- OUTSIDE RECORDS SUMMARY | 2024-04-27 01:26 | XMS_ITS | Encounter Summary ---
[place] [address] Care Team Providers Care Clip Riveter Name Role Phone Alireza Ojeda DO Primary Care Provider Reason for Referral * Consultation (Routine) - Closed Specialty Diagnoses / Procedures Referred By Gabrielle graves Referred To Contact Gastroenterology Diagnoses DOHERTY (nonalcoholic steatohepatitis) Fatty liver, DOHERTY, Eval for MRCP vs/ ERCP Genoveva Maher MD [facility] [place] [address] [facility] [address] [place] [address] Referral ID Status Reason Start Date Expiration Date V isits Requested Visits Authorized [id number] Closed Consult, Test & Treat 06/27/2022 06/27/2023 1 1 Encounter Details Date Type Department Care Team (Late st Contact Info) Description 06/27/2022 Transcribe Orders eDH Incoming Referrals [phone] Genoveva Maher MD [facility] [employer] [place], [place] [id number] DOHERTY (nonalcoholic steatohepatitis) Social History Tobacco Use [...] 09/17/2024 9:00 AM EST Appointment [place] [address] Mily Garcia MD [facility] [place] [address] 09/17/2024 9:45 AM EST Laboratory Appointment Lab [address] [place] [phone] 09/17/2024 11:30 AM EST Office [place] [address] Mily Garcia MD [facility] [place] [address] Scheduled Referrals Name Type Priority Associated Diagnoses Order Schedule Referral to Gastroenterology Outpatient Referral Routine DOHERTY (nonalcoholic steatohepatitis) Ordered: 06/27/2022 documented as of this encounter Visit Diagnoses Diagnosis DOHERTY (nonalcoholic steatohepatitis) Other chronic nonalcoholic liver disease documented in this encounter Care Teams Clip Riveter Relationship Specialty Start Date End Date Alireza Ojeda DO [address] [place] [address] PCP - General 07/16/11 09/05/22 documented as of this encounter
--- OUTSIDE RECORDS SUMMARY | 2024-04-27 01:26 | XMS_ITS | Referral Summary ---
Author Organization [facility] Address [address] [place] [address] Care Team Providers Care Imaging Services Director Name Role Phone Alireza Ojeda DO Primary Care Provider [phone] Social History Tobacco Use Types Packs/Day Years Used Date Smoking Tobacco: Never Assessed Interpersonal Safety Answer Date Record ed Physically Hurt Never 05/01/2020 Verbally Threaten Not on file 05/01/2020 Sex and Gender Information Value Date Recorded Sex Assigned at Not on file Gender Identity Not on file Sexual Orientation Not on file Plan of Treatment Not on file Procedures Procedure Name Priority Date/Time Associated Diagnosis Comments HEPATITIS C AB W REFLEX TO HCV RNA BY PCR Routine 01/29/2022 12:18 EDT from Last 3 Months or Most Recently Relevant to Health Maintenance Results * HEPATITIS C AB W REFLEX TO HCV RNA BY PCR (01/29/2022 12:18 EDT) Hep C Antibody Negative Negative 01/30/2022 10:47 EDT [facility] Blood VENOUS BLOOD / Unknown 01/29/2022 12:18 EDT 01/29/2022 20:43 EDT Provider Outr Resulting Lab CHEMISTRY & BLOOD GAS ORDERABLES [facility] [address] [place] [address] from Last 3 Months or Most Recently Relevant to Health Maintenance Care Teams Imaging Services Director Relationship Specialty Start Date End Date Alireza Ojeda, [address] [place] [address] [facility] - General 12/14/15
--- OUTSIDE RECORDS SUMMARY | 2024-04-27 01:26 | XMS_ITS | Encounter Summary ---
[place] [address] Care Team Providers Care Pull Socket Assembler Name Role Phone Alireza Ojeda DO Primary Care Provider Reason for Visit * Reason Onset Date Comments Other 07/21/2013 Called Patient Encounter Details Date Type Department Care Team (Late st Contact Info) Description 07/21/2013 Telephone [place] [address] Honey Llamas Other (Called Patient) Social History Tobacco Use Types Packs/Day Years [...] encounter Miscellaneous Notes * Telephone Encounter - Honey Llamas - 07/21/2013 4:59 PM EDT Called patient because her Berry capsule detached prematurely and Dr. Garcia wants her to have an impedance study. No answer, left voicemail. -bcj documented in this encounter Plan of Treatment Upcoming Encounters Date Type Department Care Team (Late st Contact Info) Description 09/17/2024 9:00 AM EST App[place] [address] Mily Garcia MD [facility] [place] [address] 09/17/2024 9:45 AM EST Laboratory Appointment Lab [address] [place] [address] 09/17/2024 11:30 AM EST Office Visit [place] [address] Mily Garcia MD [facility] [place] [address] documented as of this encounter Visit Diagnoses Not on filedocumented in this encounter Care Teams Pull Socket Assembler Relationship Specialty Start Date End Date Alireza Ojeda DO [address] [place] [address] PCP - General 07/16/11 09/05/22 documented as of this encounter
--- OUTSIDE RECORDS SUMMARY | 2024-04-27 01:26 | XMS_ITS | Encounter Summary ---
Author Organization [facility] Address [facility] [place] [address] Care Team Providers Care Special Education Case Manager Name Role Phone Alireza Ojeda DO Primary Care Provider Reason for Visit * Reason Onset Date Comments Medication Refill 10/07/2013 Encounter Details Date Type Department Care Team (Late st Contact Info) Description 10/07/2013 Refill [place] [address] Jo-Ann Grubbs APRN [facility] [place] [address] Social History Tobacco Use Types Packs/Day Years [...] 09/17/2024 9:00 AM EST Appointment [place] [address] Mily Garcia MD [facility] [place] [address] 09/17/2024 9:45 AM EST Laboratory Appointment Lab [address] [place] [address] 09/17/2024 11:30 AM EST Office Visit [place] [address] Mily Garcia MD [facility] [place] [address] documented as of this encounter Visit Diagnoses Not on filedocumented in this encounter Care Teams Special Education Case Manager Relationship Specialty Start Date End Date Alireza Ojeda DO [address] [place] [address] PCP - General 07/16/11 09/05/22 documented as of this encounter
--- OUTSIDE RECORDS SUMMARY | 2024-04-27 01:26 | XMS_ITS | Encounter Summary ---
Author Organization [facility] Address [address] [place] [address] Care Team Providers Care Mobile Marketing Manager Name Role Phone Alireza Ojeda DO Primary Care Provider +1- [phone] Encounter Details Date Type Department Care Team (Late st Contact Info) Description 06/22/2022 Lab Requisition [facility] Pathology & Laboratory Medicine - [facility] [address] [place] [address] Outr Resulting Lab, Provider Social History Tobacco [...] Procedure Name Priority Date/Time Associated Diagnosis Comments CHRONIC HEPATITIS PROFILE, UNKNOWN TYPE Routine 06/22/2022 13:47 EDT documented in this encounter Results * CHRONIC HEPATITIS PROFILE, UNKNOWN TYPE (06/22/2022 13:47 EDT) Hep B Surface Ag Negative Negative 06/25/20 11:39 EDT [facility] Hep B Surface Ab, Quantitative <3.1 See Note mIU/mL 06/25/2022 11:39 EDT [facility] Comment: Reference Range for Hep B Surface Ab, Quant: Positive: >= 10.0 mIU/mL Negative: ??< 10.0 mIU/mL Patient is presumed to not be immune to infection with Hepatitis B Virus. Hep B Surface Ab, Qualitative Negative See Note 06/25/2022 11:39 EDT [facility] Comment: Reference Range for Hep B Surface Ab, Qual: Unvaccinated: ??Negative Vaccinated: ??Positive Hepatitis B Core Ab, Total Negative Negative 06/25/2022 11:39 EDT [facility] Hep C Antibody Negative Negative 06/25/2022 11:39 EDT [facility] Blood VENOUS BLOOD / Unknown 06/22/2022 13:47 EDT 06/22/2022 22:05 EDT Provider Outr Resulting Lab CHEMISTRY & BLOOD GAS ORDERABLES [facility] [address] [place] [address] documented in this encounter Visit Diagnoses Not on filedocumented in this encounter Care Teams Mobile Marketing Manager Relationship Specialty Start Date End Date Alireza Ojeda DO [address] [place] [address] PCP - General 12/14/15 documented as of this encounter
--- OUTSIDE RECORDS SUMMARY | 2024-04-27 01:26 | XMS_ITS | Encounter Summary ---
Author Organization [facility] Address [facility] [place] [address] Care Team Providers Care Ems Driver Name Role Phone Alireza Ojeda DO Primary Care Provider Encounter Details Date Type Department Care Team (Late st Contact Info) Description 05/31/2022 Ancillary Procedure [place] [phone] Alireza Ojeda DO [address] [place], [place] [address] Social History Tobacco Use Types Packs/Day Years [...] 09/17/2024 9:00 AM EST [place] [phone] Mily Garcia MD [facility] GASTROENTEROLOGY [place], [place] [address] 09/17/2024 9:45 AM EST Laboratory Appointment Lab [address] [place] [address] 09/17/2024 11:30 AM EST Office [place] [address] Mily Garcia MD [facility] [place] [address] documented as of this encounter Procedures Procedure Name Priority Date/Time Associated Diagnosis Comments FILM LIBRARY STORAGE ONLY ULTRASOUND STUDY Routine 05/31/2022 12:00 AM EDT documented in this encounter Results * Film Library- Storage Only Ultrasound Study (05/31/2022 12:00 AM EDT) Narrative [facility] - 06/26/2022 12:26 AM EDT This exam is auto-finalizing. It's purpose is for storage only. Alireza Ojeda DO IM FILM LIBRARY ORD ERABLES [place], [place] documented in this encounter Visit Diagnoses Not on filedocumented in this encounter Care Teams Ems Driver Relationship Specialty Start Date End Date Alireza Ojeda DO [address] [place] [address] PCP - General 07/16/11 09/05/22 documented as of this encounter
--- OUTSIDE RECORDS SUMMARY | 2024-04-27 01:26 | XMS_ITS | Encounter Summary ---
Author Organization Formerly [facility], [facility] Address [facility] [place] [address] Care Team Providers Care Freight Inspector Name Role Phone Sanam Bennett MERARI Primary Care Provider +1- [phone] Reason for Visit * Auth/Cert (Routine) Specialty [...] ENDOSCOPIC ULTRASOUND COLONOSCOPY, DIAGNOSTIC Matthew Najera MD [facility] [place] [address] [facility] Referral ID Status Reason Start Date Expiration Date Visits Re quested Visits Authorized [id number] 1 1 Encounter Details Date Type Department Care Team (Late Contact Info) Description 09/10/2022 2:56 PM EST Anesthesia [place] [address] Matthew Oneal DO [facility] [place] [address] Tam Cohen CRNA [facility] [place] [address] Anesthesia Record Procedure Summary Procedure Name Responsible Anesthesiologist Anesthesia Start Time Anesthesia Stop Time UPPER EUS- ENDOSCOPIC ULTRASOUND (WRVU 3.47) (Trunk) Matthew Oneal, 09/10/22 1456 09/10/22 1551 Events Date Time Event Comment 09/10/2022 1441 1456 AN Verify 1456 Start 1456 An Start Data 1502 An Induction 1510 Anesthesia Ready 1545 an stop data 1551 Recovery or ICU Handoff Palak ent care was transferred to the destination unit staff after review of the patient's medical history, current anesthetic/surgical status and plan, according to the Provider Handoff Checklist. 1551 Stop Meds Name Total Propofol 310 mg Propofol INF 265.6 mg PHENYLephrine 80 mcg Lactated Ringers 500 mL * Agents Name O2 Air N2O O2 Auxiliary Flowmeter 1 * Blood No blood administrations on file. Lines, Drains, and Airways Type Details Placement Removal (RETIRED) Peripheral IV Line - Single Lumen 09/10/22; 1425; median cubital vein (antecubital fossa), left; imri-mqd-[id number] catheter system; 22 gauge; k arturo daniels; distraction, tolerated well, appears comfortable; 09/10/22; 1726 09/10/22 1425 by Melissa Ruano RN 09/10/22 1726 by Matthew Grove RN documented in this encounter Social History Tobacco Use Types Packs/Day Years [...] PM EDT documented as of this encounter OR Notes * Anesthesia Postprocedure Evaluation - Matthew Oneal DO - 09/10/2022 4:08 PM EST Department of Anesthesiology Post-procedure Note Patient: Genoveva Whiting Procedure Summary Date: 09/10/22 Room / Location: [facility] ENDO 2 / [facility] ENDOSCOPY Anesthesia Start: 1456 Anesthesia Stop: 1551 Procedures: UPPER EUS- ENDOSCOPIC ULTRASOUND (Trunk) COLONOSCOPY, DIAGNOSTIC (Trunk) EGD, W US GUIDED FINE NEEDLE ASPIRATION/BIOPSY (Trunk) LIVER BIOPSY (Trunk) Diagnosis: Elevated liver enzymes DOHERTY (nonalcoholic steatohepatitis) (DOHERTY, Fibroscan suggest cirrhosis, celiac, dilated CBD (s/p GB surgery), fhx of colon ca, obtain liver biopsy if no obvious signs of portal hypertension, duodenal bx for f/u celiac) Surgeons: Matthew Najera MD Responsible Provider: Matthew Oneal DO Anesthesia Type: MAC ASA Status: 2 All Anesthesia Providers: Anesthesiologist: Matthew Oneal DO COURSEWARE DEVELOPER: Lacho Jenkins CRNA; Tam Cohen CRNA Vitals Value Taken Time BP 105/68 09/10/22 1600 Temp Pulse Resp 20 09/10/22 1548 SpO2 98 % 09/10/22 1608 Pain Level 0 09/10/22 1548 Vitals shown include unvalidated device data. Patient Location: PACU/[facility] Level of Consciousness: Conscious but Sleepy Pain Management: Satisfactory Analgesia PONV: None Cardiovascular Status: At Baseline and Hemodynamically Stable Respiratory Status: At Baseline and Room Air Postoperative Fluid Status: Intravascular EUvolemia Possible Anesthetic Complications: NONE apparent at time of evaluation Final Primary Anesthesia Type: MAC (The anesthetic type performed was the same as planned.) Comments: * Anesthesia Preprocedure Evaluation - Matthew Oneal DO - 09/10/2022 2:40 PM EST Pre-Anesthesia Evaluation for: Genoveva Whiting a 67 y.o. female. Procedure(s): UPPER EUS- ENDOSCOPIC ULTRASOUND COLONOSCOPY, DIAGNOSTIC Patient Active Problem List Diagnosis Date Noted ??? Esophageal reflux 10/06/2013 ??? History of basal cell carcinoma 07/16/2011 Past Medical History: Diagnosis Date ??? Allergy ??? Anxiety ??? Arthritis ??? Hyperlipidemia ??? Skin disease Past Surgical History: Procedure Laterality Date ??? CATARACT REMOVAL Bilateral 2014 ??? YAG CAPSULOTOMY Right 03/13/2019 Dr Abad Social History Tobacco Use ??? Smoking status: Never ??? Smokeless tobacco: Never ??? Tobacco comments: Denies vaping Substance Use Topics ??? Alcohol use: No Social History Substance and Sexual Activity Drug Use No Allergies Allergen Reactions ??? Lisinopril ??? Morphine Medications: MAR and/or home medications have been reviewed. Physical Exam: Preprocedure Vitals Current as of 09/10/22 1440 BP: 163/100 Pulse: 110 Resp: SpO2: 98 Temp: 36 ??C (96.8 ??F) Height: 154.9 cm (5' 1) (09/10/22) Weight: 83 kg (183 lb) (09/10/22) BMI: 34.57 IBW: 47.8 kg (105 lb 4.8 oz) Last edited 09/10/22 1416 by CG Airway Assessment: Mallampati: II Cardiovascular Assessment: system normal Pulmonary Assessment: pulmonary exam normal Dental Assessment: Misc Assessment: Last Filed Perioperative Cognitive Screening None Anesthesia Plan: ASA 2 MAC, with a(n) intravenous induction 67 yo female s/f EGD, colo for DOHERTY No prior anesthetic complications Appropriately NPO Plan for MAC w/ propofol Region - Other Informed Consent: Anesthetic plan and risks discussed with patient. Plan discussed with COURSEWARE DEVELOPER. Anesthesia Screening documented in this encounter Plan of Treatment Upcoming Encounters Date Type Department Care Team (Late st Contact Info) Description 09/17/2024 9:00 AM EST [place] [phone] Mily Garcia MD [facility] [place] [address] 09/17/2024 9:45 AM EST Laboratory Appointment Lab [address] [place] [phone] 09/17/2024 11:30 AM EST Office [place] [phone] Mily Garcia MD [facility] [place] [address] documented as of this encounter Visit Diagnoses Not on filedocumented in this encounter Administered Medications Inactive Administered Medications - up to 3 most recent administrations Medication Order MAR Action Action Date Dose Rate Site lactated ringers infusion Intravenous, CONTINUOUS PRN, Starting on Sat09/10/22 at 1456, Until Sat09/10/22 at 1551, Anesthesia Intra-op New Bag 09/10/2022 2:56 PM EST PHENYLephrine in NS (PF) (INDER-SYNEPHRINE) 0.8 mg/10 mL (80 mcg/mL) multi-dose injection Syrg Intravenous, PRN, Starting on Sat09/10/22 at 1535, Until Sat09/10/22 at 1551, Anesthesia Intra-op, Routine Given 09/10/2022 3:35 PM EST 80 mcg propofoL (Diprivan) (10 mg/mL) infusion Intravenous, CONTINUOUS PRN, Starting on Sat09/10/22 at 1510, Until Sat09/10/22 at 1551, Anesthesia Intra-op, Routine Rate/Dose Change 09/10/2022 3:35 PM EST 150 mcg/kg/min 74.7 mL/hr Rate/Dose Change 09/10/2022 3:18 PM EST 100 mcg/kg/min 49. 8 mL/hr Rate/Dose Change 09/10/2022 3:12 PM EST 75 mcg/kg/min 37.3 5 mL/hr propofoL (Diprivan) 10 mg/mL bolus injection (Anesthesia) Intravenous, PRN, Starting on Sat09/10/22 at 1510, Until Sat09/10/22 at 1551, Anesthesia Intra-op Given 09/10/2022 3:33 PM EST 50 mg Given 09/10/2022 3:31 PM EST 50 mg Given 09/10/2022 3:28 PM EST 30 mg documented in this encounter Care Teams Freight Inspector Relationship Specialty Start Date End Date Sanam Bennett APRN [facility] [address] [place] [address] PCP - General Family Medicine 09/06/22 documented as of this encounter
--- OUTSIDE RECORDS SUMMARY | 2024-04-27 01:26 | XMS_ITS | Encounter Summary ---
Author Organization [facility] Address [address] [place] [address] Care Team Providers Care Preparing Box Tender Name Role Phone Alireza Ojeda DO Primary Care Provider +1- [phone] Encounter Details Date Type Department Care Team (Late st Contact Info) Description 06/27/2022 Lab Requisition [facility] Pathology & Laboratory Medicine - [facility] [address] [place] [address] Outr Resulting Lab, Provider Social History Tobacco [...] Procedure Name Priority Date/Time Associated Diagnosis Comments SPEP, INCLUDES QUANTITATION OF MONOCLONAL SPIKE PERFORMABLE Today 06/27/2022 13:40 EDT SPEP, INCLUDES QUANTITATION OF MONOCLONAL SPIKE Routine 06/27/2022 13:40 EDT PROTEIN, TOTAL Today 06/27/2022 13:40 EDT documented in this encounter Results * (ABNORMAL) SPEP, INCLUDES QUANTITATION OF MONOCLONAL SPIKE PERFORMABLE (06/27/2022 13:40 EDT) Albumin % 50.2(L) 55.8 - 66.1 % 06/28/2022 12:53 EDT [facility] Albumin g/dL 4.2 3.6 - 5.2 g/dL 06/28/2022 12:53 [facility] Alpha-1 % 3.4 2.9 - 4.9 % 06/28/2022 12:53 [facility] Alpha-1 g/dL 0.30 0.15 - 0.40 g/dL 06/28/2022 12:53 [facility] Alpha-2 % 9.4 7.1 - 11.8 % 06/28/2022 12:53 [facility] Alpha-2 g/dL 0.80 0.50 - 1.00 g/dL 06/28/2022 12:53 [facility] Beta % 10.0 8.4 - 13.1 % 06/28/2022 12:53 [facility] Beta g/dL 0.80 0.60 - 1.20 g/dL 06/28/2022 12:53 [facility] Gamma % 27.0(H) 11.1 - 18.8 % 06/28/2022 12:53 [facility] Gamma g/dL 2.20(H) 0.60 - 1.60 g/dL 06/28/2022 12:53 [facility] SPEP Comment No apparent monoclonal protein seen on serum electrophoresis 06/28/2022 12:53 [facility] Comment:See scanned/suppleme ntary report. Total Protein 8.3(H) 6.3 - 8.2 g/dL 06/28/2022 12:53 [facility] Blood VENOUS BLOOD / Unknown 06/27/2022 13:40 EDT 06/27/2022 21:17 EDT Provider Outr Resulting Lab CHEMISTRY & BLOOD GAS ORDERABLES [facility] [address] [place] [address] * PROTEIN, TOTAL (06/27/2022 13:40 EDT) Blood VENOUS BLOOD / Unknown 06/27/2022 13:40 EDT 06/27/2022 21:17 EDT Provider Outr Resulting Lab CHEMISTRY & BLOOD GAS ORDERABLES [facility] [address] [place] [address] documented in this encounter Visit Diagnoses Not on filedocumented in this encounter Care Teams Preparing Box Tender Relationship Specialty Start Date End Date Alireza Ojeda DO [address] [place] [address] PCP - General 12/14/15 documented as of this encounter
--- OUTSIDE RECORDS SUMMARY | 2024-04-27 01:26 | XMS_ITS | Encounter Summary ---
[place] [address] Care Team Providers Care Sintering Plant Supervisor Name Role Phone Alireza Ojeda DO Primary Care Provider Encounter Details Date Type Department Care Team (Latest Contact Info) Description 08/27/2022 Travel Social History Tobacco Use Types Packs/Day [...] 09/17/2024 9:00 AM [place] [phone] Mily Garcia MD [facility] [place] [address] 09/17/2024 9:45 AM EST Laboratory Appointment Lab [address] [place] [phone] 09/17/2024 11:30 AM EST Office [place] [address] Mily Garcia MD [facility] [place] [address] documented as of this encounter Visit Diagnoses Not on filedocumented in this encounter Care Teams Sintering Plant Supervisor Relationship Specialty Start Date End Date Alireza Ojeda DO [address] [place] [address] PCP - General 07/16/11 09/05/22 documented as of this encounter
--- OUTSIDE RECORDS SUMMARY | 2024-04-27 01:26 | XMS_ITS | Clinical Summary ---
Author Organization [facility] Address [address] [place] [address] Care Team Providers Care Imaging Specialist Name Role Phone Alireza Ojeda DO Primary Care Provider +1- [phone] Social History Tobacco Use Types Packs/Day Years Used Date Smoking Tobacco: Never Assessed Interpersonal Safety Answer Date Record ed Physically Hurt Never 05/01/2020 Verbally Threaten Not on file 05/01/2020 Sex and Gender Information Value Date Recorded Sex Assigned at Not on file Gender Identity Not on file Sexual Orientation Not on file Plan of Treatment Health Maintenance Due Date Last Done Comments RSV Immunization ( o r 60+ Years) (1 - 1-dose 60+ series) 2015 Fall Risk Screening 02/26/2020 COVID-19 Vaccine ( season) 2023 Hepatitis C Screen Completed 01/29/2022 Procedures Procedure Name Priority Date/Time Associated Diagnosis Comments HEPATITIS C AB W REFLEX TO HCV RNA BY PCR Routine 01/29/2022 12:18 EDT from Last 3 Months or Most Recently Relevant to Health Maintenance Results * HEPATITIS C AB W REFLEX TO HCV RNA BY PCR (01/29/2022 12:18 EDT) Hep C Antibody Negative Negative 01/30/2022 10:47 EDT [facility] Blood VENOUS BLOOD / Unknown 01/29/2022 12:18 EDT 01/29/2022 20:43 EDT Provider Outr Resulting Lab CHEMISTRY & BLOOD GAS ORDERABLES [facility] [address] [place] [address] from Last 3 Months or Most Recently Relevant to Health Maintenance Care Teams Imaging Specialist Relationship Specialty Start Date End Date Alireza Ojeda DO [address] [place] [address] PCP - General 12/14/15
--- OUTSIDE RECORDS SUMMARY | 2024-04-27 01:27 | XMS_ITS | Encounter Summary ---
Author Organization [facility] Address [address] [place] [address] Care Team Providers Care Scrum Master Name Role Phone Unknown, Provider Primary Care Provider [phone] Encounter Details Date Type Department Care Team (Late st Contact Info) Description 06/27/2011 Results Only [facility] Laboratory Services - [facility]) [address] [place] [id number] Lauren Nuno NP Social History Tobacco Use Types Packs/Day Years Used Date Smoking Tobacco: Never Assessed Sex and Gender Information Value Date Recorded Sex Assigned at Not on file Gender Identity Not on file Sexual Orientation Not on file documented as of this encounter Plan of Treatment Not on file documented as of this encounter Procedures Procedure Name Priority Date/Time Associated Diagnosis Comments PAP TEST- RESULT ONLY Routine 06/27/2011 0:00 EDT documented in this encounter Results * PAP TEST- RESULT ONLY (06/27/2011 0:00 EDT) Pathology Report: CYTOPATHOLOGY REPORT Reports generated via electronic interface contain original data; however they are lacking the format of the original report. Caution should be taken when reading/interpreti ng unformatted reports. Name: ? GENOVEVA BEARD ? Accession #: ? [id number] ? : ? 1955 (Age: 56) ??F ?Collect Date: ? 06/27/2011 ? Location: ? [facility] ? Receive Date: ? 06/28/2011 ? Provider: LAUREN NUNO SKY LINE YARDER Copy to: TRI GRAY MD ? Final Report SPECIMEN ADEQUACY ? Satisfactory for Evaluation - assessment of transformation zone component not applicable ( e.g. atrophy, vaginal sample, hysterectomy) - scant squamous epithelial component secondary to excessive inflammation GENERAL CATEGORIZATION ? Negative for Intraepithelial Lesion or Malignancy ?? Previous Gynecologic Pathology: Ovarian adenocarcinoma: PHx of Yes: PHx of adenomatous hyperplasia 2005 Treatment History: Hysterectomy: with BSO Other: Additional clinical information: Pap 04/04/09 neg. Specimen/Source: ??Pap Test, Vagina, ThinPrep Imaging System with manual evaluation Document reviewed and electronically signed by: ? GRICEL Morales(ASCP) ? Report ??Date: 07/04/2011 09:41 HPV with Pap Test ? Date Ordered: ? 07/04/2011 ? Status: ?? Signed Out ?Date Complete: ? 07/09/2011 ? By: ??System Interface ? Date Reported: ? 07/09/2011 ? * Amended * Interpretation RESULT: Negative for HPV types 16, 18, 31, 33, 35, 39, 45, 51, 52, 56, 58, 59, and 68. AMENDED REPORT Previously reported as: Quantity not sufficient. Comments Document reviewed and electronically signed by: ? System Interface ? Report date: 07/09/2011 By the signature above, the attending physician certifies that he/she has personally conducted a gross and/or microscopic examination of the described specimens and rendered or confirmed the above diagnosis. Amendments for HPV with Pap Test (07/04/2011) Amended: ??07/09/2011 by System Interface Reason: ? HPV Results Reported Previous Signout Date: ??07/05/2011 End of Report [facility] 06/27/2011 06/28/2011 Lauren Nuno NP PATHOLOGY ORDERABLES Performing Organization Address City/State/[facility] Co de Phone Number [facility] [address] [place] [address] documented in this encounter Visit Diagnoses Not on filedocumented in this encounter Care Teams Scrum Master Relationship Specialty Start Date End Date Unknown, Provider, PCP - General 04/04/09 12/13/15 documented as of this encounter
--- OUTSIDE RECORDS SUMMARY | 2024-04-27 01:27 | XMS_ITS | Encounter Summary ---
Author Organization [facility] Address [address] [place] [address] Care Team Providers Care Optical Instrument Specialist Name Role Phone Alireza Ojeda DO Primary Care Provider +1- [phone] Encounter Details Date Type Department Care Team (Late st Contact Info) Description 11/08/2020 Lab Requisition [facility] Pathology & Laboratory Medicine - [address] [address] Outr Resulting Lab, Provider Social History Tobacco [...] Procedure Name Priority Date/Time Associated Diagnosis Comments ZZCOVID-19 TEST [facility] PCR Today 11/08/2020 8:32 EST COVID-19 TESTING Routine 11/08/2020 8:32 EST documented in this encounter Results * COVID-19 TEST [facility] PCR (11/08/2020 8:32 EST) Swab ENTIRE NASOPHARYNX / Unknown 11/08/2020 8:32 EST 11/08/2020 16:56 EST Provider Outr Resulting Lab MICROBIOLOGY - GENERAL ORDERABLES [facility] [address] [place] [address] * COVID-19 TESTING (11/08/2020 8:32 EST) COVID-19 rt-PCR Result Negative Negative 11/09/2020 15:12 EST [facility] Comment: This test has not been FDA cleared or approved. This test has been authorized by FDA under an EUA for use by authorized laboratories. This test has been authorized only for detection of nucleic acid from 2019-nCoV, not for any other viruses or pathogens. This test is only authorized for the duration of the declaration that circumstances exist justifying the authorization of emergency use of in vitro diagnostic tests for detection and/or diagnosis of 2019-nCoV under section 564(b)(1) of Act, 21 U.S.C ?? 360bbb-3(b) (1), unless the authorization is terminated or revoked sooner. Negative results do not preclude 2019-nCoV infection and should not be used as the sole basis for treatment or other patient management decisions. Negative results must be combined with clinical observations, patient history, and epidemiological information. Testing was performed using the naseem SARS-CoV-2 assay ([employer] on the Naseem 6800 System Performing Lab Naseem [address] [facility] Lab 11/09/2020 15:12 EST [facility] Swab 11/08/2020 8:32 EST 11/08/2020 16:56 EST Provider Outr Resulting Lab MICROBIOLOGY - GENERAL ORDERABLES [facility] [address] [place] [address] documented in this encounter Visit Diagnoses Not on filedocumented in this encounter Care Teams Optical Instrument Specialist Relationship Specialty Start Date End Date Alireza Ojeda DO [address] [place] [address] PCP - General 12/14/15 documented as of this encounter
--- OUTSIDE RECORDS SUMMARY | 2024-04-27 01:27 | XMS_ITS | Encounter Summary ---
Author Organization [facility] Address [address] [place] [address] Care Team Providers Care Battery Engineer Name Role Phone Alireza Ojeda DO Primary Care Provider +1- [phone] Encounter Details Date Type Department Care Team (Latest Contact Info) Description 08/03/2016 11:11 EDT - 08/03/2016 23:59 EDT Hospital Encounter [address] [address] Unknown, Provider, Discharge Disposition: Home or Self Care Social History Tobacco Use Types Packs/Day Years Used Date Smoking Tobacco: Never Assessed Sex and Gender Information Value Date Recorded Sex Assigned at Not on file Gender Identity Not on file Sexual Orientation Not on file documented as of this encounter Discharge Disposition Disposition Code Departure Means Destination Home or Self Senior Care documented in this encounter Plan of Treatment Not on file documented as of this encounter Visit Diagnoses Not on filedocumented in this encounter Care Teams Battery Engineer Relationship Specialty Start Date End Date Alireza Ojeda DO [address] [place] [address] PCP - General 12/14/15 documented as of this encounter
--- OUTSIDE RECORDS SUMMARY | 2024-04-27 01:27 | XMS_ITS | Encounter Summary ---
Author Organization [facility] Address [address] [place] [address] Care Team Providers Care Retail Client Solutions Analyst Name Role Phone Alireza Ojeda DO Primary Care Provider +1- [phone] Encounter Details Date Type Department Care Team (Late st Contact Info) Description 01/03/2022 Lab Requisition [facility] Pathology & Laboratory Medicine - [facility] [address] [place] [address] Outr Resulting Lab, Provider Social History Tobacco [...] Procedure Name Priority Date/Time Associated Diagnosis Comments FUNGUS CULTURE/SMEAR Routine 01/02/2022 14:30 EDT documented in this encounter Results * FUNGUS CULTURE/SMEAR (01/02/2022 14:30 EDT) Organism ID No fungi isolated 01/12/2022 10:16 EDT [facility] Fungal Smear No Fungi Seen 01/12/2022 10:16 EDT [facility] Swab ENTIRE PHARYNX / Unknown 01/02/2022 14:30 EDT 01/03/2022 21:29 EDT Provider Outr Resulting Lab MICROBIOLOGY - GENERAL ORDERABLES [facility] [address] [place] [address] documented in this encounter Visit Diagnoses Not on filedocumented in this encounter Care Teams Retail Client Solutions Analyst Relationship Specialty Start Date End Date Alireza Ojeda DO [address] [place], [place] [id number] PCP - General 12/14/15 documented as of this encounter
--- OUTSIDE RECORDS SUMMARY | 2024-04-27 01:27 | XMS_ITS | Encounter Summary ---
Author Organization [facility] Address [address] [place] [address] Care Team Providers Care Radio Communications Superintendent Name Role Phone Alireza Ojeda DO Primary Care Provider +1- [phone] Encounter Details Date Type Department Care Team (Latest Contact Info) Description 01/30/2019 11:57 EDT - 01/30/2019 23:59 EDT Hospital Encounter [address] [address] Unknown, Provider, Discharge Disposition: Home or Self Care Social History Tobacco Use Types Packs/Day Years Used Date Smoking Tobacco: Never Assessed Sex and Gender Information Value Date Recorded Sex Assigned at Not on file Gender Identity Not on file Sexual Orientation Not on file documented as of this encounter Discharge Disposition Disposition Code Departure Means Destination Home or Self Usp documented in this encounter Plan of Treatment Not on file documented as of this encounter Visit Diagnoses Not on filedocumented in this encounter Care Teams Radio Communications Superintendent Relationship Specialty Start Date End Date Alireza Ojeda DO [address] [place] [address] PCP - General 12/14/15 documented as of this encounter
--- OUTSIDE RECORDS SUMMARY | 2024-04-27 01:27 | XMS_ITS | Encounter Summary ---
Author Organization [facility] Address [address] [place] [address] Care Team Providers Care Washhouse Hand Name Role Phone Alireza Ojeda DO Primary Care Provider [phone]- [phone] Encounter Details Date Type Department Care Team (Late st Contact Info) Description 04/06/2016 Results Only [facility] [phone] Ashley Britt, [facility] [address] [place] [address] [place] [address] Social History Tobacco Use Types Packs/Day Years [...] Diagnosis Comments PAP TEST- RESULT ONLY Routine 04/06/2016 0:00 EDT documented in this encounter Results * PAP TEST- RESULT ONLY (04/06/2016 0:00 EDT) Pathology Report: CYTOPATHOLOGY REPORT Reports generated via electronic interface contain original data; however they are lacking the format of the original report. Caution should be taken when reading/interpreti ng unformatted reports. Name: ? GENOVEVA BEARD ? Accession #: ? [id number] : ? 1955 (Age: 61) ??F ?Collect Date: ? 04/06/2016 Location: ? [facility] ? Receive Date: ? 04/09/2016 Provider: ?ASHLEY BRITT ENVIRONMENTAL STUDIES DEPARTMENT CHAIR Copy to: ?ALIREZA OJEDA DO ? Specimen/Source: ?Pap Test, Vagina, ThinPrep Imaging System with manual evaluation Last Menstrual Period: ? 2006 Previous Gynecologic Pathology: ? Ovarian adenocarcinoma: 2006 Treatment History: ? Hysterectomy: S/P for ??2006 path ? SPECIMEN ADEQUACY ? Satisfactory for Evaluation - assessment of transformation zone component not applicable ( e.g. atrophy, vaginal sample, hysterectomy) GENERAL CATEGORIZATION ? Negative for Intraepithelial Lesion or Malignancy ? Document reviewed and electronically signed by: ? GRICEL Valencia(ASCP) ? Report Date: ??04/19/2016 12:17 End of Report [facility] 04/06/2016 04/09/2016 Ashley Britt ENVIRONMENTAL STUDIES DEPARTMENT CHAIR PATHOLOGY ORDERABLES Performing Organization Address City/State/[facility] Co de Phone Number [facility] [address] [place] [address] documented in this encounter Visit Diagnoses Not on filedocumented in this encounter Care Teams Washhouse Hand Relationship Specialty Start Date End Date Alireza Ojeda DO [address] [place] [address] PCP - General 12/14/15 documented as of this encounter
--- OUTSIDE RECORDS SUMMARY | 2024-04-27 01:27 | XMS_ITS | Encounter Summary ---
Author Organization [facility] Address [address] [place] [address] Care Team Providers Care Baseball Winder Name Role Phone Unknown, Provider Primary Care Provider Encounter Details Date Type Department Care Team (Late st Contact Info) Description 11/17/2010 Results Only [facility] Laboratory Services - [facility] ([facility]) [address] [place], [place] [address] Krystle Her MD [address] [place] [address] [place] [address] Social History Tobacco Use Types Packs/Day Years Used Date Smoking Tobacco: Never Assessed Sex and Gender Information Value Date Recorded Sex Assigned at Not on file Gender Identity Not on file Sexual Orientation Not on file documented as of this encounter Plan of Treatment Not on file documented as of this encounter Procedures Procedure Name Priority Date/Time Associated Diagnosis Comments CYTOPATHOLOGY Routine 11/17/2010 0:00 EST documented in this encounter Results * CYTOPATHOLOGY (11/17/2010 0:00 EST) Pathology Report: CYTOPATHOLOGY REPORT ? Reports generated via electronic interface contain original data; ? however they are lacking the format of the original report. ? Caution should be taken when reading/interpreti ng unformatted reports. ? Name: ? GENOVEVA BEARD ? Accession #: ? [id number] ? : ? 1955 (Age: 55) ??F ?Collect Date: ? 11/17/2010 ? Location: ? [facility] ? Receive Date: ? 11/20/2010 ? Provider: ?KRYSTLE HER MD ? Copy to: ? Specimen/Source: ?Pap Test, Cervix/Endocervix, ThinPrep Imaging System ? with manual evaluation ? Last Menstrual Period: ? 11/05/2010 ? SPECIMEN ADEQUACY ? GENERAL CATEGORIZATION ? COMMENT ? A result for this sample was initially reported on 11/21/10 at 15:24. On ? 12/15/10, we were notified that Luz[facility] at [facility] that the sample was submitted with incorrect patient identification. No sample was actually ? collected from this patient, and all charges related to this sample for this ? patient have been credited. ? Document reviewed and electronically signed by: ? Deja FFranky Godwin SCT(ASCP) ? Report Date: ??12/15/2010 14:23 ? HPV with Pap Test ? Date Ordered: ? 11/21/2010 ? Status: ?? Signed Out ?Date Complete: ? 12/15/2010 ? By: ??System Interface ? Date Reported: ? 12/15/2010 ? * Amended * ? Interpretation ? RESULT: CHARGED TO INCORRECT MEDICAL RECORD NUMBER, CREDIT ISSUED. ? Comments ? Document reviewed and electronically signed by: ? System Interface ? Report date: 12/15/2010 ? By the signature above, the attending physician certifies that he/she has ? personally conducted a gross and/or microscopic examination of the described ? specimens and rendered or confirmed the above diagnosis. ? Amendments for HPV with Pap Test (11/21/2010) ? Amended: ??12/15/2010 by System Interface ? Reason: ? HPV Results Reported ? Previous Signout Date: ??11/27/2010 ? End of Report ? [facility] 11/17/2010 11/20/2010 Krystle Her MD PATHOLOGY ORDERABLES Performing Organization Address City/State/[facility] Co de Phone Number [facility] [address] [place] [address] documented in this encounter Visit Diagnoses Not on filedocumented in this encounter Care Teams Baseball Winder Relationship Specialty Start Date End Date Unknown, Provider, PCP - General 04/04/09 12/13/15 documented as of this encounter
--- OUTSIDE RECORDS SUMMARY | 2024-04-27 01:27 | XMS_ITS | Encounter Summary ---
Author Organization [facility] Address [address] [place] [address] Care Team Providers Care Shirt Creaser Name Role Phone Unknown, Provider Primary Care Provider [phone] Encounter Details Date Type Department Care Team (Late st Contact Info) Description 12/09/2015 Results Only [facility] [phone] Uziel Andrade, DO [address] [place] [address] Social History Tobacco Use Types Packs/Day Years Used Date Smoking Tobacco: Never Assessed Sex and Gender Information Value Date Recorded Sex Assigned at Not on file Gender Identity Not on file Sexual Orientation Not on file documented as of this encounter Plan of Treatment Not on file documented as of this encounter Procedures Procedure Name Priority Date/Time Associated Diagnosis Comments SURGICAL PATHOLOGY Routine 12/09/2015 6:03 EST documented in this encounter Results * SURGICAL PATHOLOGY (12/09/2015 6:03 EST) Pathology Report: SURGICAL PATHOLOGY REPORT Reports generated via electronic interface contain original data; however they are lacking the format of the original report. Caution should be taken when reading/interpretin g unformatted reports. Name: ? GENOVEVA BEARD ? Accession #: ? [id number] ? : ? 1955 (Age: 60) ??F ? Collect Date: ? 12/09/2015 ? Location: ? [facility] ? Receive Date: ? 12/10/2015 ? Provider: UZIEL ANDRADE DO Copy to: PAOLA GUEVARADERICK DO ? Final Pathologic Diagnosis: STOMACH, ANTRUM, BIOPSY: - ??Gastric antral mucosa with reactive (chemical) gastropathy and chronic inflammation. See comment. - ??No evidence of H. pylori on H&E stain. Comment: ----- Immunoperoxidase staining was performed on this case to further characterize the lesion. ??Positive and negative controls stained appropriately. ? ANTIBODY(CLONE)(BLO CK):RESULT H. pylori (Rabbit Monoclonal (SP48), [place]) (block 2): ??Negative ? NOTE: ??One or more of the reagents used in immunoperoxidase testing in this case may not have been cleared or approved by the U.S. Food and Drug Administration (FDA). ??The FDA has determined that such clearance or approval is not necessary. ??These tests are used for clinical purposes. ??They should not be regarded as investigational or for research. ??These reagents' performance characteristics have been determined by the [facility]. ??This laboratory is certified under the Clinical Laboratory Improvement Amendments of 1988 (CLIA-88) as qualified to perform high complexity clinical laboratory testing. ?? ___ Document reviewed and electronically signed by: ILDA YEAGER MD Report ??Date: 12/13/2015 14:55 By the signature above, the attending physician certifies that he/she has personally conducted a gross and/or microscopic examination of the described specimens and rendered or confirmed the above diagnosis. Specimen(s) Received: Gastric antrum bx Clinical History: GERD; clinical diagnosis code: K21.5 Gross Description: ? Received in formalin labelled with proper patient identification (initials G, D) and gastric antrum bx are four pink-de jesus tissues (0.2 x 0.2 x 0.2 cm to 0.5 x 0.2 x 0.2 cm). Entirely submitted in 1 and 2. Ilda Villegas 12/12/2015 9:33 AM End of Report [facility] 12/09/2015 6:03 EST 12/10/2015 6:03 EST Uziel Andrade DO PATHOLOGY ORDERABLES Performing Organization Address City/State/[facility] Co de Phone Number [facility] [address] [place] [address] documented in this encounter Visit Diagnoses Not on filedocumented in this encounter Care Teams Shirt Creaser Relationship Specialty Start Date End Date Unknown, Provider, PCP - General 04/04/09 12/13/15 documented as of this encounter
--- OUTSIDE RECORDS SUMMARY | 2024-04-27 01:27 | XMS_ITS | Encounter Summary ---
Author Organization [facility] Address [address] [place] [address] Care Team Providers Care Row Boss Hoeing Name Role Phone Unknown, Provider Primary Care Provider [phone] Encounter Details Date Type Department Care Team (Late st Contact Info) Description 12/12/2012 Results Only [facility] [phone] Uziel Andrade, DO [address] [place] [address] Social History Tobacco Use Types [...] Date/Time Associated Diagnosis Comments SURGICAL PATHOLOGY Routine 12/12/2012 16 :41 EDT documented in this encounter Results * SURGICAL PATHOLOGY (12/12/2012 16:41 EDT) Pathology Report: SURGICAL PATHOLOGY REPORT Reports generated via electronic interface contain original data; however they are lacking the format of the original report. Caution should be taken when reading/interpreting unformatted reports. Name: ? GENOVEVA WHITING ? Accession #: ? [id number] ? : ? 1955 (Age: 57) ??F ? Collect Date: ? 12/12/2012 ? Location: ? [facility] ? Receive Date: ? 12/12/2012 ? Provider: UZIEL ANDRADE DO Copy to: PAOLA GOVEA DO ? Final Pathologic Diagnosis: A. ?Duodenum, biopsies: 1. ?Duodenal mucosa with no specific pathologic features. B. ?Stomach, antrum, biopsies: 1. ?Antral mucosa with chronic focally active gastritis and reactive changes. 2. ? Immunohistochemical staining is negative for Helicobacter pylori. ?? See comment. ? Comment: ? Immunohistochemical staining was performed on this case to further characterize the lesion. ??Positive and negative controls stained appropriately. Block ?Antibody (Clone) ? Result ? B2 ?H. pylori (polyclonal, [place]) ?Negative. ? (Dr. Lester)/[facility] ? NOTE: ??One or more of the [...] reagents' performance characteristics have been determined by [facility]. ??This laboratory is certified under [...] or confirmed the above diagnosis. Specimen(s) Received: A. ?Duodenal bxs (#1) B. ? Bxs gastric antrum (#2) Clinical History: ? Recalcitrant GERD Gross Description: ? Received in formalin labelled WhitingGenoveva and 1-duodenal bx are two de jesus-pink soft tissue fragments that measure 0.2 x 0.1 x 0.1 cm and 0.3 x 0.2 x 0.2 cm. ??The specimen is submitted entirely as (A1). Received in formalin labelled Whiting, Genoveva and 2-bx gastric antrum are four de jesus-pink soft tissue fragments that range in size from 0.2 x 0.1 x 0.1 cm to 0.4 x 0.3 x 0.2 cm. ??The specimen is submitted entirely as (B1) and (B2). (Dr. Malik)/[facility] End of Report [facility] 12/12/2012 16:4 1 EDT 12/12/2012 16:41 EDT Uziel Andrade DO PATHOLOGY ORDERABLES Performing Organization Address City/State/[facility] Co de Phone Number [facility] [address] [place] [address] documented in this encounter Visit Diagnoses Not on filedocumented in this encounter Care Teams Row Boss Hoeing Relationship Specialty Start Date End Date Unknown, Provider, PCP - General 04/04/09 12/13/15 documented as of this encounter
--- OUTSIDE RECORDS SUMMARY | 2024-04-27 01:27 | XMS_ITS | Encounter Summary ---
Author Organization [facility] Address [address] [place] [address] Care Team Providers Care Desk Operator Name Role Phone Unknown, Provider Primary Care Provider [phone] Encounter Details Date Type Department Care Team (Late st Contact Info) Description 07/07/2012 Results Only [facility] Laboratory Services - [facility]) [address] [place] [id number] Lauren Nuno, HAN Social History Tobacco Use Types Packs/Day Years [...] Diagnosis Comments PAP TEST- RESULT ONLY Routine 07/07/2012 0:00 EDT documented in this encounter Results * PAP TEST- RESULT ONLY (07/07/2012 0:00 EDT) Pathology Report: CYTOPATHOLOGY REPORT Reports generated via electronic interface contain original data; however they are lacking the format of the original report. Caution should be taken when reading/interpreti ng unformatted reports. Name: ? GENOVEVA BEARD ? Accession #: ? [id number] : ? 1955 (Age: 57) ??F ?Collect Date: ? 07/07/2012 Location: ? [facility] ? Receive Date: ? 07/08/2012 Provider: ?LAUREN NUNO CHEESEMAKING LABORER Copy to: ? Specimen/Source: ?Pap Test, Vagina, ThinPrep Imaging System with manual evaluation Last Menstrual Period: ? Previous Gynecologic Pathology: ? Yes: adenomatous hyperplasia 2006 Ovarian adenocarcinoma Treatment History: ? Hysterectomy Other: ? Additional clinical information: last pap 06/27/11 wnl/negative HPV ? SPECIMEN ADEQUACY ? Satisfactory for Evaluation - assessment of transformation zone component not applicable ( e.g. atrophy, vaginal sample, hysterectomy) GENERAL CATEGORIZATION ? Negative for Intraepithelial Lesion or Malignancy ? Document reviewed and electronically signed by: ? Ricardo Cook, GRICEL(ASCP) ? Report Date: ??07/11/2012 13:48 End of Report [facility] 07/07/2012 07/08/2012 Lauren Nuno NP PATHOLOGY ORDERABLES Performing Organization Address City/State/[facility] Co de Phone Number [facility] [address] [place] [address] documented in this encounter Visit Diagnoses Not on filedocumented in this encounter Care Teams Desk Operator Relationship Specialty Start Date End Date Unknown, Provider, PCP - General 04/04/09 12/13/15 documented as of this encounter
--- OUTSIDE RECORDS SUMMARY | 2024-04-27 01:27 | XMS_ITS | Encounter Summary ---
Author Organization [facility] Address [address] [place] [address] Care Team Providers Care Production Machinist Name Role Phone RustyAlireza caraballo Primary Care Provider [phone]- [phone] Encounter Details Date Type Department Care Team (Late st Contact Info) Description 01/30/[address] [facility] [phone] Ophelia Valladares, DO [address] [place], [place] [phone] Social History Tobacco Use Types Packs/Day Years Used Date Smoking Tobacco: Never Assessed Sex and Gender Information Value Date Recorded Sex Assigned at Not on file Gender Identity Not on file Sexual Orientation Not on file documented as of this encounter Plan of Treatment Not on file documented as of this encounter Procedures Procedure Name Priority Date/Time Associated Diagnosis Comments SURGICAL PATHOLOGY Routine 01/30/2019 16 :02 EDT documented in this encounter Results * SURGICAL PATHOLOGY (01/30/2019 16:02 EDT) Pathology Report: SURGICAL PATHOLOGY REPORT Reports generated via electronic interface contain original data; however they are lacking the format of the original report. Caution should be taken when reading/interpret ing unformatted reports. Name: ? GENOVEVA BEARD ? Accession #: ? [id number] ? : ? 1955 (Age: 63) ??F ? Collect Date: ? 01/30/2019 ? Location: ? [facility] ? Receive Date: ? 01/30/2019 ? Provider: OPHELIA VALLADARES DO Copy to: ALIREZA GOVEA DO ? Final Pathologic Diagnosis: A. COLON, CECUM, BIOPSY: - Colonic mucosa with no specific pathologic features. B. COLON, DESCENDING, 40 CM, BIOPSY: - Colonic mucosa with no specific pathologic features. C. RECTUM, BIOPSY: - Colorectal mucosa with no specific pathologic features. Document reviewed and electronically signed by: TOMAS BUTT MD Report ??Date: 02/04/2019 16:19 By the signature above, the attending physician certifies that he/she has personally conducted a gross and/or microscopic examination of the described specimens and rendered or confirmed the above diagnosis. Specimen(s) Received: A. ??Cecum bx B. ??Descending colon 40 cm bx C. ??Rectal bx Clinical History: H/O colon polyps, f/h of colon cancer Gross Description: A. ?Received in formalin labelled with proper patient identification (initials G, D) and cecum BX is a single fragment of pink tissue (0.5 x 0.2 x 0.2 cm). The specimen is entirely submitted in A1. B. ?Received in formalin labelled with proper patient identification (initials G, D) and descending colon at 40 cm BX are two fragments of de jesus tissue measuring 0.4 x 0.3 x 0.2 cm. The specimens are entirely submitted in B1. C. ?Received in formalin labelled with proper patient identification (initials G, D) and rectal BX are two fragments of pink tissue measuring 0.2 x 0.2 x 0.2 cm. The specimens are entirely submitted in C1. ELIER Austin (ASCP) 01/30/2019 4:13 PM End of Report [facility] 01/30/2019 16:0 2 EDT 01/30/2019 16:02 EDT Ophelia Valladares DO PATHOLOGY ORDERABLES [facility] [address] [place] [address] documented in this encounter Visit Diagnoses Not on filedocumented in this encounter Care Teams Production Machinist Relationship Specialty Start Date End Date Alireza Govea DO [address] [place] [address] PCP - General 12/14/15 documented as of this encounter
--- OUTSIDE RECORDS SUMMARY | 2024-04-27 01:27 | XMS_ITS | Encounter Summary ---
Author Organization [facility] Address [address] [place] [address] Care Team Providers Care Turn Down Man Name Role Phone Alireza Ojeda DO Primary Care Provider [phone]- [phone] Encounter Details Date Type Department Care Team (Late st Contact Info) Description 01/29/2022 Lab [facility] Pathology & Laboratory Medicine - [facility] [address] [place] [address] Outr Resulting Lab, Provider Social History Tobacco [...] Procedure Name Priority Date/Time Associated Diagnosis Comments HIV 1/2 ANTIGEN AND ANTIBODY, 4TH GENERATION Routine 01/29/2022 12:18 EDT documented in this encounter Results * HIV 1/2 ANTIGEN AND ANTIBODY, 4TH GENERATION (01/29/2022 12:18 EDT) HIV 1 and 2 Antibody/p24 Antigen, 4th Generation Negative Negative 01/30/2022 10:37 EDT [facility] Comment:If acute HIV-1 infec tion is suspected in a high risk patient, submit plasma specimen for HIV-1 RNA quantitation test. Blood VENOUS BLOOD / Unknown 01/29/2022 12:18 EDT 01/29/2022 20:43 EDT Narrative [facility] - 01/30/2022 10:37 EDT Fourth Generation assay performed on the Divvyshotaur XPT. Provider Outr Resulting Lab IMMUNOLOGY A ND SEROLOGY ORDERABLES [facility] [address] [place] [address] documented in this encounter Visit Diagnoses Not on filedocumented in this encounter Care Teams Turn Down Man Relationship Specialty Start Date End Date Alireza Ojeda DO [address] [place] [address] PCP - General 12/14/15 documented as of this encounter
--- OUTSIDE RECORDS SUMMARY | 2024-04-27 01:27 | XMS_ITS | Encounter Summary ---
Author Organization [facility] Address [address] [place] [address] Care Team Providers Care Voice Writing Reporter Name Role Phone Unknown, Provider Primary Care Provider [phone] Encounter Details Date Type Department Care Team (Late st Contact Info) Description 04/04/2009 Orders Only [facility] Laboratory Services - [facility] ([address] [phone] Lauren Nuno, HAN Social History Tobacco Use [...] Priority Date/Time Associated Diagnosis Comments CYTOPATHOLOGY Routine 04/04/2009 0:00 EDT documented in this encounter Results * CYTOPATHOLOGY (04/04/2009 0:00 EDT) Pathology Report: CYTOPATHOLOGY REPORT ? Reports generated via electronic interface contain original data; ? however they are lacking the format of the original report. ? Caution should be taken when reading/interpreti ng unformatted reports. ? Name: ? GENOVEVA BEARD ? Accession #: ? [id number] ? : ? 1955 (Age: 54) ??F ?Collect Date: ? 04/04/2009 ? Location: ? [facility] ? Receive Date: ? 04/04/2009 ? Provider: ?LAUREN M KRISTIE COMMUNICATIONS PROJECT MANAGER ? Copy to: ? Specimen/Source: ?Pap Test, Vagina, ThinPrep Imaging System with manual ?? evaluation ? Last Menstrual Period: ? 04/06 ? Treatment History: ? Hysterectomy: 04/06 ? SPECIMEN ADEQUACY ? Satisfactory for Evaluation ? - assessment of transformation zone component not applicable ( e.g. atrophy, ? vaginal sample, hysterectomy) ? GENERAL CATEGORIZATION ? Negative for Intraepithelial Lesion or Malignancy ? Document reviewed and electronically signed by: ? Gregory Kaba, CT(ASCP) ? Report Date: ??04/08/2009 15:54 ? End of Report ? [facility] 04/04/2009 04/04/2009 Lauren Nuno NP PATHOLOGY ORDERABLES Performing Organization Address City/State/[facility] Co de Phone Number [facility] [address] [place] [address] documented in this encounter Visit Diagnoses Not on filedocumented in this encounter Care Teams Voice Writing Reporter Relationship Specialty Start Date End Date Unknown, Provider, PCP - General 04/04/09 12/13/15 documented as of this encounter
--- OUTSIDE RECORDS SUMMARY | 2024-04-27 01:27 | XMS_ITS | Encounter Summary ---
Author Organization [facility] Address [address] [place] [address] Care Team Providers Care Retail Manager In Training Name Role Phone Unknown, Provider Primary Care Provider Encounter Details Date Type Department Care Team (Latest Contact Info) Description 12/09/2015 8:00 EST - 12/09/2015 23:59 EST Hospital Encounter [address] [address] Unknown, Provider, Discharge Disposition: Home or Self Care Social History Tobacco Use Types Packs/Day Years Used Date Smoking Tobacco: Never Assessed Sex and Gender Information Value Date Recorded Sex Assigned at Not on file Gender Identity Not on file Sexual Orientation Not on file documented as of this encounter Discharge Disposition Disposition Code Departure Means Destination Home or Self Nursing Home documented in this encounter Plan of Treatment Not on file documented as of this encounter Visit Diagnoses Not on filedocumented in this encounter Care Teams Retail Manager In Training Relationship Specialty Start Date End Date Unknown, Provider, PCP - General 04/04/09 12/13/15 documented as of this encounter
--- OUTSIDE RECORDS SUMMARY | 2024-04-27 01:27 | XMS_ITS | Encounter Summary ---
Author Organization [facility] Address [address] [place] [address] Care Team Providers Care Rn Radiology Name Role Phone Alireza Ojeda DO Primary Care Provider [phone] Encounter Details Date Type Department Care Team (Late st Contact Info) Description 01/03/2021 Lab Requisition [facility] Pathology & Laboratory Medicine - [facility] [address] [place] [address] Outr Resulting Lab, Provider Social History Tobacco [...] Comments ZZCOVID-19 TEST [facility] PCR Today 01/02/2021 14:15 EDT COVID-19 TESTING Routine 01/02/2021 14:1 5 EDT documented in this encounter Results * COVID-19 TEST [facility] PCR (01/02/2021 14:15 EDT) Swab ENTIRE NASOPHARYNX / Unknown 01/02/2021 14:15 EDT 01/03/2021 16:03 EDT Provider Outr Resulting Lab MICROBIOLOGY - GENERAL ORDERABLES [facility] [address] [place] [address] * COVID-19 TESTING (01/02/2021 14:15 EDT) COVID-19 rt-PCR Result Negative Negative 01/04/2021 18:02 EDT [facility] Comment: This test has not [...] clinical observations, patient history, and epidemiological information. This test was developed and its performance characteristics determined by [facility]. It has not been cleared or approved by the US Food and Drug Administration. FDA does not require this test to go through premarket FDA review. This test is used for clinical purposes. It should not be regarded as investigational or for research. This laboratory is certified under the Clinical Laboratory Improvement Amendments (CLIA) as qualified to perform high complexity clinical laboratory testing. This test is based on the [facility] COVID-19 Emergency Use Authorization (EUA) assay, with minor modification as defined by the FDA Performed on the [employer] Collaro 7 Flex RT-PCR System. Performing Lab [facility] 01/04/2021 18:02 EDT [facility] Swab 01/02/2021 14:1 5 EDT 01/03/2021 16:03 EDT Provider Outr Resulting Lab MICROBIOLOGY - GENERAL ORDERABLES [facility] [address] [place] [address] documented in this encounter Visit Diagnoses Not on filedocumented in this encounter Care Teams Rn Radiology Relationship Specialty Start Date End Date Alireza Ojeda DO [address] [place] [address] PCP - General 12/14/15 documented as of this encounter
--- OUTSIDE RECORDS SUMMARY | 2024-04-27 01:27 | XMS_ITS | Encounter Summary ---
Author Organization [facility] Address [address] [place] [address] Care Team Providers Care Tufting Creeler Name Role Phone Unknown, Provider Primary Care Provider [phone] Encounter Details Date Type Department Care Team (Late st Contact Info) Description 07/27/2011 Results Only [facility] [phone] Uziel Andrade, DO [address] [place] [address] Social History Tobacco Use Types [...] Date/Time Associated Diagnosis Comments SURGICAL PATHOLOGY Routine 07/27/2011 0:00 EDT documented in this encounter Results * SURGICAL PATHOLOGY (07/27/2011 0:00 EDT) Pathology Report: SURGICAL PATHOLOGY REPORT Reports generated via electronic interface contain original data; however they are lacking the format of the original report. Caution should be taken when reading/interpreti ng unformatted reports. Name: ? GENOVEVA WHITING ? Accession #: ? [id number] ? : ? 1955 (Age: 56) ??F ? Collect Date: ? 07/27/2011 ? Location: ? [facility] ? Receive Date: ? 07/27/2011 ? Provider: UZIEL ANDRADE DO Copy to: TRI GRAY MD ? Final Pathologic Diagnosis: A. ?Duodenum, biopsy: 1. ?Chronic non-specific duodenitis. 2. ? Rare mild villous blunting 3. ? Slight increase in intraepithelial lymphocytes. ??See comment. B. ?Gastric antrum, biopsy: 1. ?Gastric antral mucosa with no specific pathologic features. Comment: ? The increase in intraepithelial lymphocytes may be due to drug-related, like NSAID, or could represent an early manifestation of sprue. Suggest clinical correlation. (Dr. Rene)/[facility] Document reviewed and electronically signed by: ANGELITO RENE MD Report ??Date: 07/30/2011 17:40 By the signature above, the attending physician certifies that he/she has personally conducted a gross and/or microscopic examination of the described specimens and rendered or confirmed the above diagnosis. Specimen(s) Received: A. ?Duodenum bx B. ? Gastric antrum bx Clinical History: ? Dyspepsia, family hx colon cancer Gross Description: ? Received in formalin labelled Whiting Genoveva and duodenum bx are four de jesus-brown soft tissue fragments that range from 0.1 x 0.1 x 0.1 cm to 0.5 x 0.3 x 0.2 cm. ??The specimen is entirely submitted in cassette (A1) and (A2). Received in formalin labelled [place] Genoveva and gastric antrum bx are three de jesus-brown soft tissue fragments that range from 0.2 x 0.2 x 0.1 cm to 0.4 x 0.2 x 0.1 cm. ??The specimen is entirely submitted in cassette (B). ??(Dr. Levy)/mpl End of Report JESSA DACOSTA 07/27/2011 07/27/2011 17: 14 EDT Uziel Andrade DO PATHOLOGY ORDERABLES Performing Organization Address City/State/[facility] Co de Phone Number JESSA DACOSTA [address] [place] [address] documented in this encounter Visit Diagnoses Not on filedocumented in this encounter Care Teams Tufting Creeler Relationship Specialty Start Date End Date Unknown, Provider, PCP - General 04/04/09 12/13/15 documented as of this encounter
--- OUTSIDE RECORDS SUMMARY | 2024-04-27 01:27 | XMS_ITS | Encounter Summary ---
Author Organization [facility] Address [address] [place] [address] Care Team Providers Care Cage Maker Machine Name Role Phone RustyAlireza caraballo DO Primary Care Provider [phone]- [phone] Encounter Details Date Type Department Care Team (Late st Contact Info) Description 08/03/2016 Results Only [facility] [phone] Uziel Andrade, DO [address] [place] [address] Social History Tobacco Use Types [...] Date/Time Associated Diagnosis Comments SURGICAL PATHOLOGY Routine 08/03/2016 6:43 EDT documented in this encounter Results * SURGICAL PATHOLOGY (08/03/2016 6:43 EDT) Pathology Report: SURGICAL PATHOLOGY REPORT Reports generated via electronic interface contain original data; however they are lacking the format of the original report. Caution should be taken when reading/interpret ing unformatted reports. Name: ? GENOVEVA BEARD ? Accession #: ? [id number] ? : ? 1955 (Age: 61) ??F ? Collect Date: ? 08/03/2016 ? Location: ? [facility] ? Receive Date: ? 08/03/2016 ? Provider: UZIEL ANDRADE DO Copy to: [...] or confirmed the above diagnosis. Specimen(s) Received: Ascending colon polyp Clinical History: Family hx colon cancer; clinical diagnosis code: Z80.0 Gross Description: ? Received in formalin labelled with proper patient identification (initials G, D) and ascending colon polyp is a single pink-de jesus tissue fragment (0.6 x 0.3 x 0.2 cm). Submitted intact in 1. ELIER Canseco (ASCP) 08/06/2016 8:36 AM End of Report [facility] 08/03/2016 6:43 EDT 08/03/2016 6:43 EDT Uziel Andrade DO PATHOLOGY ORDERABLES [facility] [address] [place] [address] documented in this encounter Visit Diagnoses Not on filedocumented in this encounter Care Teams Cage Maker Machine Relationship Specialty Start Date End Date Alireza Govea DO [address] [place] [address] PCP - General 12/14/15 documented as of this encounter
--- NOTE | 2024-04-27 09:11 | DI.MAMMO_ITS ---
Exam(s) MAMMO SCREENING EXAM: MAMMO SCREENING CLINICAL HISTORY: SCREENING,Z12.31 TECHNIQUE: Mammograms were interpreted according to the usual protocol including computer analysis w [employer] CAD system, tomosynthesis and C-view imaging. COMPARISON: 2015 through 2022 FINDINGS: The breasts are composed of mainly fatty density , Breast Density category A. No suspicious masses or suspicious microcalcifications are seen. No skin thickening or abnormal axillary lymph nodes are seen. There has been no significant change from prior exams. IMPRESSION: BI-RADS Category 1, Negative mammogram Yearly screening mammography is recommended. Breast Density - Category A, fatty density. A negative radiographic report should not delay biopsy if a dominant or clinically suspicious mass is present. Up to ten percent of cancers are not identified on mammography. A negative report may reinforce clinical impression. Adenosis and dense breasts may obscure an underlying neoplasm. False positive reports average 6 to 10%. Patient will receive a letter notifying them of these results.
== END ==
PROVIDERS: Visit Provider Physician Assistant
DX: Z12.31 Encounter for screening mammogram for malignant neoplasm of breast (principal)
CPT/HCPCS: 77063; 77067

== ENCOUNTER 2024-07-09 01:14 | Outpatient (CLI) | payer MEDICARE, OTHER, SELFPAY ==
--- NOTE | 2024-07-09 | DI.DEXA_ITS ---
Exam(s) XR DEXA BONE DENSITY W/WO JOAN EXAM: XR DEXA BONE DENSITY W/WO JOAN CLINICAL HISTORY: OSTEOPOROSIS M81.0 TECHNIQUE: Routine DEXA evaluation of the lumbar spine, hip, or forearm. COMPARISON: Prior DEXA scan May 2021 FINDINGS: Performed on a HoloCoferon unit. Lateral image: No compression fracture evident. Lumbar Spine total T-score: -0.9. Prior reading in 2000 was -1.2 Hip total T-score:-1 point. Prior reading in 2020 was -2.1 Independent reading at the level of the femoral neck yields T-score of -2.9. This is in the osteopo rosis range. Forearm total T-score: -3.9. This is in the osteoporosis range. Prior reading in 2020 was -3.0 IMPRESSION: Bone mineral density measures in the osteoporosis range. Fracture risk is high. Note: Any spine fracture indicates 5x risk for subsequent spine fracture and 2x risk for subsequent h ip fracture. World Health Organization criteria for BMD interpretation classify patients: Normal...... T- Score at or above -1.0 Osteopenic... T- Score between -1.0 and -2.5 Osteoporosis... T-Score at or below -2.5
== END 2024-07-09 01:34 ==
LOC: DI 01:14
PROVIDERS: PCP Physician Assistant; Visit Provider Physician Assistant
DX: M81.0 Age-related osteoporosis without current pathological fracture (principal)
CPT/HCPCS: 77080

== ENCOUNTER 2024-08-06 02:49 | Outpatient (CLI) | payer MEDICARE, OTHER, SELFPAY ==
--- NOTE | 2024-08-06 | DI.RAD_ITS ---
Exam(s) XR KNEE LT 3V AP,LAT,PETE EXAM: XR KNEE LT 3V AP,LAT,PETE CLINICAL HISTORY: LT KNEE PAIN, M25.562. TECHNIQUE: 2D digital imaging was performed of the left knee. Three images were obtained. AP, late ral and PA tunnel views were obtained. COMPARISON: There are no priors for comparison. FINDINGS: BONES: No acute fracture is present. No bony destructive lesion is seen. There are enthesophytes at the anterior patella. JOINTS: The knee is normally aligned. No joint effusion is seen. No loose body. SOFT TISSUE: Normal. IMPRESSION: No acute abnormality. DATA REPOSITORY: RADIATION DOSE DELIVERED:
== END 2024-08-06 03:09 ==
LOC: DI 02:49
PROVIDERS: PCP Physician Assistant; Visit Provider Physician Assistant
DX: M25.562 Pain in left knee (principal)
CPT/HCPCS: 73562

== ENCOUNTER 2024-08-18 15:57 | Emergency (ER) | payer MEDICARE, OTHER, SELFPAY ==
[2024-08-18 15:59] VITALS: BP 132/88; PULSE 78; RESP 18; TEMP 36.8; O2SAT 99
--- NOTE | 2024-08-18 16:16 | ED.GENADUL_ITS ---
Discharge Plan Disposition Patient Disposition: Home Condition: Stable Discharge Details Clinical Impression: Lumbar disc disease, Urinary tract infection Primary Care Provider: Romero Goldsmith ED Provider: Neville Alfredo Home Meds and New Rx's Prescriptions: New prednisone 20 mg tablet 40 mg PO DAILY 5 Days Qty: 10 0RF cephalexin 500 mg capsule 500 mg PO QID 10 Days Qty: 40 0RF Continued clobetasol 0.05 % cream 1 applic TP DAILY PRN (Reason: rash) Qty: 30 0RF azathioprine 50 mg tablet 50 mg PO DAILY duloxetine 60 mg capsule,delayed release(DR/EC) 60 mg PO DAILY Qty: 90 3RF pravastatin 40 mg tablet 40 mg PO DAILY Qty: 90 3RF omeprazole 40 mg capsule,delayed release(DR/EC) 40 mg PO DAILY Qty: 90 3RF doxepin 10 mg capsule 10 mg PO HS Qty: 90 3RF ropinirole 2 mg tablet 2 mg PO QHS Qty: 90 3RF Discharge Instructions Instructions: Cephalexin, Oxycodone, Prednisone, Urinary Tract Infection, Adult ED, Degenerative Disc Disease ED Additional Instructions: You were seen in the emergency department for your acute on chronic sciatica pain with severe lumbar disc disease, I have sent a referral through our care management service to [facility] spine service. He also have a UTI which was likely the source of a rust colored urine and I have sent an antibiotic called cephalexin to treat this. For your back pain you state that you cannot take Tylenol or ibuprofen. You need to purchase [id number] lidocaine patches I have sent a burst of 5 days of prednisone, and you can try to use [id number] Voltaren anti-inflammatory gel. You need to apply gentle heat and massage to the area and I have sent a physical therapy referral as well as a pain care clinic referral. As we discussed should you lose function of your lower extremities or have numbness to the genitals or urinary retention or bowel incontinence you should return to an emergent facility at once Stand Alone Forms: Physical Therapy Referral Referrals: Care Management [Provider Group] [facility] [Provider Group] Romero Goldsmith [Primary Care Provider] - HPI General Date/Time Provider Initiated Documentation: 08/18/24 16:16 . HPI Narrative: 69 year-old female presents to ED today by POV/ambulating with her with a chief complaint of acute on chronic sciatica pain, and some noted rust-colored urine recently with onset over the past 3 weeks. Quality described as sharp left worse than right sciatica pain radiating down left leg, no radiation to fever, nausea, weakness, numbness to genitals, inability to move either lower leg, urinary retention, bowel incontinence. Severity is described as severe. Palliating factors include patient states she has Romero and cannot take Tylenol or ibuprofen. Provoking factors include certain movements, getting up from bed. Events leading up to the incident/Associated Symptoms: Patient has degenerative disc disease with cervical fusion and remote history, denies renal stone history. Patient not anticoagulated. Related Data Home Medications ?Medication ?Instructions ?Recorded ?Confirmed clobetasol 0.05 % topical cream 1 applic topical DAILY PRN rash 01/02/22 08/18/24 #30 grams azathioprine 50 mg tablet 50 mg PO DAILY 10/11/22 08/18/24 doxepin 10 mg capsule 10 mg PO HS #90 caps 03/04/23 08/18/24 duloxetine 60 mg capsule,delayed 60 mg PO DAILY #90 caps 03/04/23 08/18/24 release omeprazole 40 mg capsule,delayed 40 mg PO DAILY #90 tab-caps 03/04/23 08/18/24 release pravastatin 40 mg tablet 40 mg PO DAILY #90 tab-caps 03/04/23 08/18/24 ropinirole 2 mg tablet 2 mg PO QHS #90 tabs 03/11/23 08/18/24 cephalexin 500 mg capsule 500 mg PO QID UTI 10 days #40 caps 08/18/24 prednisone 20 mg tablet 40 mg (2 x 20 mg) PO DAILY lumbar 08/18/24 radiculopathy 5 days #10 tabs Previous Rx's ?Medication ?Instructions ?Recorded clobetasol 0.05 % topical cream 1 applic topical DAILY PRN rash 01/02/22 #30 grams doxepin 10 mg capsule 10 mg PO HS #90 caps 03/04/23 duloxetine 60 mg capsule,delayed 60 mg PO DAILY #90 caps 03/04/23 release omeprazole 40 mg capsule,delayed 40 mg PO DAILY #90 tab-caps 03/04/23 release pravastatin 40 mg tablet 40 mg PO DAILY #90 tab-caps 03/04/23 ropinirole 2 mg tablet 2 mg PO QHS #90 tabs 03/11/23 cephalexin 500 mg capsule 500 mg PO QID UTI 10 days #40 caps 08/18/24 prednisone 20 mg tablet 40 mg (2 x 20 mg) PO DAILY lumbar 08/18/24 radiculopathy 5 days #10 tabs Allergies Allergy/AdvReac Type Severity Reaction Status Date / Time lisinopril AdvReac Intermediate COUGH Verified 08/18/24 16:06 morphine AdvReac Intermediate Visual Verified 08/18/24 16:06 Disturbances gabapentin AdvReac nightmares Verified 08/18/24 16:06 General Stated Complaint: Nk/Back Pain LONI: 3 Review of Systems All systems reviewed & are unremarkable except as noted in HPI and below Exam Narrative Exam Narrative: GENERAL APPEARANCE: Well-nourished, non-toxic, awake and alert, atraumatic, no acute distress. SKIN: Warm, pink, dry, intact, without rashes/lesions/ulcerations. HEAD: Normocephalic, atraumatic, normal hair distribution for gender/age. EYES: Normal conjunctiva, no exudates on lids/lashes. ENT: Nares patent, no circumoral cyanosis, no facial swelling NECK: Supple, trachea midline, painless cervical ROM. LUNGS/CHEST: Non-labored respirations, normal A/P diameter, symmetrical expansion, no chest wall deformity HEART (CV/PV): Regular rate and rhythm without murmur, no peripheral edema, no JVD. ABDOMEN: Soft, non-distended, no guarding, no CVA tenderness to percussion bilaterally, no anterior abdominal tenderness. MSK: Normal ROM, no swelling/deformity to bilateral UEs or LEs, moving all extremities without weakness, no cyanosis, spine midline without tenderness- tenderness is most focal around L5-S1 of the left paraspinal region, no crepitus or step-offs to the midline vertebrae, normal curvature. NEURO: Mental Status AAOx4 - alert to person, place, time, events No facial droop, no forehead involvement. Motor: No focal weakness - strength 5/5 in bilateral UEs and LEs, proximal and distal, symmetric. Sensory: sensation intact to light touch globally. Gait normal: patient ambulated without ataxia into ED room. PSYCH: euthymic, cooperative, pleasant, appropriate speech Course Vital Signs Vital signs: Vital Signs Temperature 36.8 C 08/18/24 15:59 Pulse 78 08/18/24 15:59 Respiratory Rate 18 08/18/24 15:59 Blood Pressure 132/88 08/18/24 15:59 Pulse Oximetry 99 08/18/24 15:59 Temperature 36.8 C 08/18/24 15:59 Temperature Source Oral 08/18/24 15:59 Pulse 78 08/18/24 15:59 Respiratory Rate 18 08/18/24 15:59 Blood Pressure 132/88 08/18/24 15:59 Blood Pressure Position Sitting 08/18/24 15:59 Pulse Oximetry 99 08/18/24 15:59 Oxygen Delivery Method Room Air 08/18/24 15:59 Oxygen Flow Rate 0 08/18/24 15:59 Medical Decision Making This dictation utilizes [id number] dictation software and may contain unedited grammatical errors. 69 year-old female presents to ED today by POV/ambulating with her with a chief complaint of acute on chronic sciatica pain, and some noted rust-colored urine recently with onset over the past 3 weeks. Quality described as sharp left worse than right sciatica pain radiating down left leg, no radiation to fever, nausea, weakness, numbness to genitals, inability to move either lower leg, urinary retention, bowel incontinence. Severity is described as severe. Palliating factors include patient states she has Romero and cannot take Tylenol or ibuprofen. Provoking factors include certain movements, getting up from bed. Events leading up to the incident/Associated Symptoms: Patient has degenerative disc disease with cervical fusion and remote history, denies renal stone history. Patients' medical history: Prediabetes, hypertension, hepatic cirrhosis, hyperlipidemia, celiac disease, fibromyalgia. Family and social history: Noncontributory. Pertinent exam findings / vital signs include left sacroiliac tenderness most focal, no midline vertebral tenderness, neurovascularly intact in bilateral lower extremities, no saddle anesthesia, no CVA tenderness to percussion bilaterally, benign abdomen. Differential / pathologies of concern include acute on chronic sciatica, unlikely cauda equina or spinal epidural abscess, renal stone, UTI, pyelonephritis less likely. Diagnostic studies of: -CBC, CMP, UA, CT renal stone with lumbar recon. -UA shows UTI -Blood work is benign with no actionable abnormality to CBC or CMP -CT renal shows no evidence of hydronephrosis or calculi, shows severe L3-L5 canal stenosis Interventions of: -Patient was given methocarbamol, Lidoderm patch, oxycodone, outpatient Rx for prednisone to start tomorrow, 4 tabs of oxycodone to go. -Placed a referral to care management for [facility] Ortho spine with patient's prior cervical discectomy ED Course/Assessment/Plan: 69-year-old female presents with acute on chronic sciatica and had some rust colored urine, there is evidence for UTI on the UA, her blood work is benign for any signs of systemic involvement, CT shows severe canal stenosis L3-L5, patient is neurovascularly intact in bilateral lower extremities with no evidence of cauda equina or spinal epidural abscess clinically,, was given methocarbamol and Lidoderm patch and oxycodone recommended Voltaren gel outpatient and 4 tabs of oxycodone to go, patient's pain did improve significantly and I did start her on cephalexin for UTI, provided care management referrals for [facility] orthospine, recommend strict return criteria for signs of cauda equina or worsening despite treatment. Findings not consistent with cauda equina, spinal epidural abscess, neurova scular compromise, pyelonephritis, infected kidney stone, sepsis. Disposition of urinary tract infection, lumbar disc disease. Patient verbalized understanding of the plan and return to ED criteria and engaged in shared decision making. Medical Records Medical records reviewed: Yes I reviewed the patient's medical records. Imaging Data Radiologic Study: Attestation: I personally reviewed and interpreted this imaging study as follows: Imaging: CT Scan Radiologist's impression: EXAM: CT RENAL COLIC WO CLINICAL HISTORY: ?hematuria. TECHNIQUE: Imaging Protocol: Axial computed tomography images with coronal and sagittal reformatted images were created and reviewed. Axial, coronal and sagittal images of the lumbar spine were reconstructed from the abdomen and pelvic CT in bone and soft tissue algorithm. COMPARISON: CT CT CHEST/ABD/PEL W from 03/31/2024 CR XR DEXA BONE DENSITY W/WO JOAN from 07/09/[address] LUMBAR SPINE RECONS from 08/18/2024 FINDINGS: Lung Bases: No acute findings. Liver: Normal density. No measurable mass. Gallbladder and biliary tract: Status post cholecystectomy. No biliary ductal dilation. Pancreas: No abnormal calcifications or inflammatory process. Spleen: Normal size. Kidneys: Normal size, contour and axis.No radiodense stones or obstructive uropathy. No suspicious masses seen. Adrenal glands: No mass is seen. Lymph nodes: Within normal limits. Vasculature: Abdominal aorta non-dilated. Atherosclerotic changes. Bladder: Nearly empty. No stones. No gross wall thickening. No evidence of mass. Bowel: No obstruction. No bowel wall thickening. Peritoneal cavity: No ascites.No free air. No focal collection. No mesenteric inflammatory response. Reproductive organs: Status post hysterectomy. Bones/lumbar spine: No spine or pelvic fracture. Evaluation of the soft tissues of the spine somewhat limited by increased image noise. The T12-L1 and L1-2 levels are unremarkable. There is minimal disc bulging at L2-3. There is mild ligamentous hypertrophy. This causes mild central canal stenosis. At L3-4, there is broad-based disc bulging. There are facet degenerative changes and ligamentous hypertrophy which combine to produce severe central canal stenosis. Moderate left and mild right neural foraminal narrowing. Disc bulging at L4-5 combines with facet degenerative changes and ligamentous hypertrophy to produce severe central canal stenosis. Moderate to severe bilateral neural foraminal narrowing also present. At L5-S1, there is slight disc bulging. There are facet degenerative changes but no central canal stenosis. There is left neural foraminal narrowing. Soft Tissues: Within normal limits. IMPRESSION: No evidence of hydronephrosis or urinary tract calculi. Degenerative disc changes and facet degenerative changes combine to produce severe central canal stenosis at L3-4 and L4-5. Bilateral neural foraminal narrowing also present at multiple levels. The evaluation is somewhat limited due to large amount of image noise. Findings are roughly unchanged from prior CT abdomen pelvis. Lab Data Lab results reviewed: Yes I reviewed the patient's lab results. Labs: 08/18/24 16:53 Urine - Reflex from Ua Urine Culture - Pending Laboratory Tests Range/Units 08/18/24 08/18/24 16:53 17:30 WBC (4.4-10.8) 10^3/uL 6.31 RBC (3.93-5.22) 10^6/uL 4.85 Hgb (11.2-15.7) g/dL 14.0 Hct (36.0-46.0) % 42.2 MCV (80-95) fL 87 MCH (27.0-33.0) pg 28.9 MCHC (32.0-36.0) % 33.2 RDW (11.7-14.6) % 13.8 Plt Count (130-400) 10^3/uL 200 MPV (8.0-11.0) fL 10.0 Immature Gran % % 0.2 Neutrophils % % 56.7 Lymphocytes % % 30.0 Monocytes % % 11.9 Eosinophils % % 0.2 Basophils % % 1.0 Nucleated RBC % (0.0-0.3) % 0.0 Absolute Neutrophils (1.2-6.7) 10^3/uL 3.59 Absolute Lymphocytes (1.2-3.4) 10^3/uL 1.89 Absolute Monocytes (0.1-0.8) 10^3/uL 0.75 Absolute Eosinophils (0.0-0.7) 10^3/uL 0.01 Absolute Basophils (0.0-0.2) 10^3/uL 0.06 Sodium (136-145) mmol/L 139 Potassium (3.5-5.1) mmol/L 4.1 Chloride (98-107) mmol/L 102 Carbon Dioxide (21.0-32.0) mmol/L 29.9 Anion Gap (3-11) mmol/L 7.1 BUN (7-18) mg/dL 11 Creatinine (0.55-1.02) mg/dL 1.0 Est GFR (CKD-EPI 2020) (mL/min/1.73m2) 60.98 Glucose (74-106) mg/dL 111 H Calcium (8.5-10.1) mg/dL 8.8 Total Bilirubin (0.2-1.0) mg/dL 0.56 Conjugated Bilirubin (0.0-0.2) mg/dL 0.1 AST (15-37) U/L 38 H ALT (14-59) U/L 26 Alkaline Phosphatase (46-116) U/L 84 Total Protein (6.4-8.2) g/dL 8.3 H Albumin (3.4-5.0) g/dL 3.9 Urine Color (Yellow) Yellow Urine Clarity (Clear) Sl Cloudy Urine pH (5-8) 5.5 Ur Specific [place] (1.005-1.025) 1.020 Urine Protein (Neg-Trace) mg/dL Negative Urine Ketones (Negative) mg/dL Trace H Urine Blood (Negative) Trace-intact H Urine Nitrite (Negative) Negative Urine Bilirubin (Negative) Negative Urine Urobilinogen (Up to 0.2) mg/dL 1.0 H Ur Leukocyte Esterase (Negative) Small H Urine RBC (0-2) HPF 3-5 H Urine WBC (0-5) HPF 10-20 H Ur Epithelial Cells (Negative) HPF Few Urine Crystals (Negative) HPF Negative Urine Bacteria (Negative) HPF Negative Urine Mucus (Negative) Moderate Urine Other (Negative) Rare Transitional Ur Culture Indicated? Yes Urine Glucose (Negative) mg/dL Negative Quality:SDOH Health Related Social Needs: No Data to Display PFSH All Active Problems (Updated 08/18/24 @ 19:41 by ELIER Trammell) Urinary tract infection (Acute) Lumbar disc disease (Acute) Hepatic cirrhosis (Chronic ~08/2022) Secondary to AIH/ROMERO. Followed by [facility] GI Fatty liver disease, nonalcoholic (Chronic) Obstructive sleep apnea syndrome (Chronic) History of ovarian cancer (Chronic) Hyperlipidemia (Chronic) Depressive disorder (Chronic) Gastroesophageal reflux disease (Chronic) Celiac disease (Chronic) Constipation by delayed colonic transit (Chronic) Osteoarthritis (Chronic) Primary fibromyalgia syndrome (Chronic) Osteopenia (Chronic) Lichen sclerosus of vulva (Chronic) Restless leg syndrome (Chronic) Insomnia (Chronic) Sensorineural hearing loss (SNHL) of both ears (Chronic) Medical History Basal cell carcinoma (BCC) of left methodist region Essential hypertension Prediabetes Primary malignant neoplasm of ovary Found on pathology from [facility], oophrectomy done for AUB Tubular adenoma of colon 2015 Surgical History History of carpal tunnel surgery Bilateral History of esophagogastroduodenoscopy (EGD) Hx of cataract surgery S/P abdominal hysterectomy (~2005) S/P arthroscopy of right shoulder S/P bilateral oophorectomy (~2005) S/P cervical discectomy S/P cholecystectomy S/P colonoscopy S/P tubal ligation (~2001) Status post right partial knee replacement (~2003) Family History (Updated 05/23/23 @ 10:42 by Sanam Bennett NP) Mother , 90 Colon cancer Diabetes Heart disease Father Colon cancer Diabetes Alzheimer's dementia Sister No problems noted. Sister Breast cancer Pancreatic cancer Sister Hypertension Sister Essential thrombocytosis Daughter Endometriosis Maternal Grandfather Cancer Unknown type Maternal Grandmother Cancer Unknown type Paternal Grandfather Cancer Unknown type Paternal Grandmother Leukemia Social History Smoking/Tobacco Use Status: Never Smoking risk assessment performed?: Yes Alcohol Intake: never Drug use: Never Substance use type: does not use Caregiver/Support person: No Household members: significant other Housing: house Communication Needs: Hard of Hearing Pets and animals: Yes Pets and animals: dog(s) Sexually active: No Do you think of yourself as: straight/heterosexual Current gender identity: female What is your relationship status?: living with partner How often do you talk on the phone with friends or family?: never How often do you get together with friends or relatives?: twice per week How often do you attend islam or latter day services?: decline to answer Panel score (0-1 are the most socially isolated patients): 1 NHANES result reviewed/action taken: No Duration: 15-30 minutes/day Frequency: 5-6 times per week Suni/Spiritism: No preference Seatbelt use: always Do you feel safe at home: Yes Do you feel safe in your relationship?: Yes History History 3 Para 1 Hx # Term Pregnancies Multiple births Hx # Pregnancies Ectopic pregnancies AB induced Hx Number of Living Children 1 AB spontaneous 2
--- NOTE | 2024-08-18 16:27 | DI.CT_ITS ---
Exam(s) CT LUMBAR SPINE RECONS CT RENAL COLIC WO EXAM: CT RENAL COLIC WO CLINICAL HISTORY: ?hematuria. TECHNIQUE: Imaging Protocol: Axial computed tomography images with coronal and sagittal reformatted images were created and reviewed. Axial, coronal and sagittal images of the lumbar spine were reconstructed from the abdomen and pelvic CT in bone and soft tissue algorithm. COMPARISON: CT CT CHEST/ABD/PEL W from 03/31/2024 CR XR DEXA BONE DENSITY W/WO JOAN from 07/09/[address] LUMBAR SPINE RECONS from 08/18/2024 FINDINGS: Lung Bases: No acute findings. Liver: Normal density. No measurable mass. Gallbladder and biliary tract: Status post cholecystectomy. No biliary ductal dilation. Pancreas: No abnormal calcifications or inflammatory process. Spleen: Normal size. Kidneys: Normal size, contour and axis.No radiodense stones or obstructive uropathy. No suspicious ma sses seen. Adrenal glands: No mass is seen. Lymph nodes: Within normal limits. Vasculature: Abdominal aorta non-dilated. Atherosclerotic changes. Bladder: Nearly empty. No stones. No gross wall thickening. No evidence of mass. Bowel: No obstruction. No bowel wall thickening. Peritoneal cavity: No ascites.No free air. No focal collection. No mesenteric inflammatory response. Reproductive organs: Status post hysterectomy. Bones/lumbar spine: No spine or pelvic fracture. Evaluation of the soft tissues of the spine somewhat limited by increased image noise. The T12-L1 and L1-2 levels are unremarkable. There is minimal disc bulging at L2-3. There is mild ligamentous hypertrophy. This causes mild cent ral canal stenosis. At L3-4, there is broad-based disc bulging. There are facet degenerative changes and ligamentous hyp ertrophy which combine to produce severe central canal stenosis. Moderate left and mild right neural foraminal narrowing. Disc bulging at L4-5 combines with facet degenerative changes and ligamentous hypertrophy to produce severe central canal stenosis. Moderate to severe bilateral neural foraminal narrowing also present. At L5-S1, there is slight disc bulging. There are facet degenerative changes but no central canal st enosis. There is left neural foraminal narrowing. Soft Tissues: Within normal limits. IMPRESSION: No evidence of hydronephrosis or urinary tract calculi. Degenerative disc changes and facet degenerative changes combine to produce severe central canal sten osis at L3-4 and L4-5. Bilateral neural foraminal narrowing also present at multiple levels. The ev aluation is somewhat limited due to large amount of image noise. Findings are roughly unchanged from prior CT abdomen pelvis. RADIATION DOSE DELIVERED: Total DLP Total DLP DATA REPOSITORY: All CT scans at this facility are submitted to the National Radiology Data Registry (NRDR) Dose Index Registry (DIR) with the [employer] (ACR). RADIATION OPTIMIZATION: All CT scans at this facility use at least one of these dose optimization te chniques: automated exposure control; mA and/or kV adjustment per patient size (includes targeted exa ms where dose is matched to clinical indication); or iterative reconstruction.
[2024-08-18 17:03] LABS: Bilirubin Negative (Negative); Blood Trace-intact (Negative); Clarity Sl Cloudy (Clear); Glucose Negative (Negative); Ketones Trace mg/dL (Negative); Leukocyte Esterase Small (Negative); Nitrite Negative (Negative); pH 5.5 (5-8)
[2024-08-18 17:10] LABS: Bacteria Negative HPF (Negative); C & S Indicated? Yes; Crystals Negative HPF (Negative); Epithelial Cells Few HPF (Negative); Mucus Moderate (Negative); Other Cells Rare Transitional (Negative)
[2024-08-18 17:36] LABS: Abs Immature Grans 0.01 10^3/uL (0.0-0.06); Absolute Basophil Count 0.06 10^3/uL (0.0-0.2); Absolute Eosinophil Count 0.01 10^3/uL (0.0-0.7); Absolute Lymphocyte Count 1.89 10^3/uL (1.2-3.4); Absolute Monocyte Count 0.75 10^3/uL (0.1-0.8); Absolute Neutrophil Count 3.59 10^3/uL (1.2-6.7); Eosinophils % 0.2 %; HCT 42.2 % (36.0-46.0); Immature Grans % 0.2 %; MCH 28.9 pg (27.0-33.0); MCHC 33.2 % (32.0-36.0); MCV 87 fL (80-95); Monocytes % 11.9 %; Neutrophils % 56.7 %; Platelet Count 200 10^3/uL (130-400); RBC 4.85 10^6/uL (3.93-5.22); RDW 13.8 % (11.7-14.6); RDW-SD 44.1 fL; WBC 6.31 10^3/uL (4.4-10.8)
[2024-08-18] MEDS: Lidocaine 5% Patch 2 PATCH TP (17:40)
[2024-08-18] MEDS: oxyCODONE 5 MG TAB PO (17:40)
[2024-08-18] MEDS: Methocarbamol 500 MG TAB 1000 MG PO (17:40)
[2024-08-18 17:52] LABS: ALT 26 U/L (14-59); AST 38 U/L (15-37); Albumin 3.9 g/dL (3.4-5.0); Alkaline Phosphatase 84 U/L (46-116); Anion Gap 7.1 mmol/L (3-11); BUN 11 mg/dL (7-18); Bilirubin, Direct 0.1 mg/dL (0.0-0.2); Bilirubin, Total 0.56 mg/dL (0.2-1.0); CO2 29.9 mmol/L (21.0-32.0); Calcium 8.8 mg/dL (8.5-10.1); Chloride 102 mmol/L (98-107); Estimated GFR 60.98 (mL/min/1.73m2); Glucose 111 mg/dL (74-106); Potassium 4.1 mmol/L (3.5-5.1); Sodium 139 mmol/L (136-145); Total Protein 8.3 g/dL (6.4-8.2)
--- OUTSIDE RECORDS SUMMARY | 2024-08-18 17:57 | XMS_ITS | Encounter Summary ---
Author Organization [facility] [place] [address] Care Team Providers Care Oral And Maxillofacial Surgery Resident Name Role Phone Sanam Bennett MERARI Primary [...] 09/17/2024 9:00 AM EST Appointment [place] [phone] Mily Garcia MD [facility] [place] [place] [address] 09/17/2024 9:45 AM EST Laboratory Appointment Lab [address] [place] [id number] 09/17/2024 11:30 AM EST Office Visit [place] [phone] Mily Garcia MD [facility] [place] [address] documented as of this encounter Visit Diagnoses Not on filedocumented in this encounter Care Teams Oral And Maxillofacial Surgery Resident Relationship Specialty Start Date End Date Sanam Bennett APRN [address] [place] [address] [address] [place] [address] PCP - General Family Medicine 09/06/22 documented as of this encounter
--- OUTSIDE RECORDS SUMMARY | 2024-08-18 17:57 | XMS_ITS | Encounter Summary ---
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 [...] 09/17/2024 9:00 AM EST [place] [phone] Mily Garcia MD [facility] [place] [address] 09/17/2024 9:45 AM EST Laboratory Appointment Lab [address] [place] [address] 09/17/2024 11:30 AM EST Office [place] [phone] Mily Garcia MD [facility] [place] [address] documented as of this encounter Procedures Procedure Name Priority Date/Time Associated Diagnosis Comments SCAN, PERIPHERAL BLOOD Routine 9:24 AM EDT HEMOGRAM Routine 06/28/2023 9:24 AM EDT Autoimmune hepatitis 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 DIFFERENTIAL, AUTOMATED Routine 06/28/2023 9:24 AM EDT Autoimmune hepatitis 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 AFP TUMOR MARKER Routine 06/28/2023 9:24 AM EDT 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 PROTHROMBIN TIME Routine 06/28/2023 9:24 AM EDT Autoimmune hepatitis 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 CBC (WITH DIFF) Routine 06/28/2023 9:24 AM EDT Autoimmune hepatitis 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 COMPREHENSIVE METABOLIC PANEL Routine 06/28/2023 9:24 AM EDT Autoimmune hepatitis 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 documented in this encounter Results * Scan, Peripheral Blood (06/28/2023 9:24 AM EDT) Plat estimate Normal [facility] RBC Morphology Normal [facility] Blood 06/28/2023 9:24 AM EDT 06/28/2023 9:31 AM EDT Narrative Resulting Agency Comment Spec In Lab Rebeca Yoon COLLISION REPAIR TECHNICIAN HEMATOLOGY ORDERAB LES [facility] [place] [address] * (ABNORMAL) Differential, Automated (06/28/2023 9:24 AM EDT) Neutrophil % 37.5 % [facility] Neutrophil Absolute 2.37 1.70 - 6.10 x10(3)/[facility] Lymph % 40.2 % [facility] Lymphocytes Abs 2.5 0.9 - 3.2 x10(3)/[facility] Monocyte % 10.0 % [facility] Monocyte Abs 0.6 0.3 - 0.9 x10(3)/[facility] Eos % 10.6 % [facility] Eosinophils Abs 0.7(H) 0.0 - 0.4 x10(3)/[facility] Basophil % 1.4 % [facility] Baso Absolute 0.1 0.0 - 0.1 x10(3)/[facility] Immature Gran % 0.30 % [facility] Comment: Immature granulocytes(IG's)percentage and absolute count will include metamyelocytes, myelocytes, and promyelocytes. Blood smears from CBCs yielding IG's will be scanned manually for concordance. If this scan disagrees with the automated IG or if promyelocytes are noted, a manual differential will be performed. Immature Gran Absolute 0.02 0.00 - 0.04 x10(3)/[facility] Blood 06/28/2023 9:24 AM EDT 06/28/2023 9:31 AM EDT Narrative Resulting Agency Comment Spec In Lab Rebeca Yoon COLLISION REPAIR TECHNICIAN HEMATOLOGY ORDERAB LES [facility] [place] [address] * Hemogram (06/28/2023 9:24 AM EDT) White Blood Cell 6.3 4.0 - 9.5 x10(3)/[facility] Red Blood Cell 4.86 4.00 - 5.21 x10(6)/[facility] Hemoglobin 13.9 11.7 - 15.5 g/dL [facility] Hematocrit 41.4 35.7 - 45.8 % [facility] Mean Cell Volume 85.2 82.6 - 94.4 fL [facility] Mean Cell Hemoglobin 28.6 27.1 - 32.0 pg [facility] Mean Cell Hemoglobin Concentration 33.6 31.7 - 35.0 g/dL [facility] Platelet 227 145 - 357 x10(3)/[facility] RDW Standard Deviation 40.7 37.0 - 46.0 fL [facility] RDW coefficient of variation 13.0 11.5 - 14.1 % [facility] Mean Platelet Volume 10.4 7.6 - 12.9 fL [facility] NRBC% auto 0.0 % [facility] NRBC Absolute 0.000 0.000 - 0.000 x10(3)/[facility] Blood 06/28/2023 9:24 AM EDT 06/28/2023 9:31 AM EDT Narrative Resulting Agency Comment Spec In Lab Rebeca Yoon APRN HEMATOLOGY ORDERAB LES Performing Organization Address City/[facility] Co de Phone Number [facility] [place] [address] * AFP tumor marker (06/28/2023 9:24 AM EDT) Pathologist [facility] Alpha Fetoprotein 3.2 <=8.3 ng/mL [facility] Comment: This result was generated using a Radha Anshu immunoassay. ??Results obtained from other methods or manufacturers cannot be used interchangeably with this method. Blood 06/28/2023 9:24 AM EDT 06/28/2023 9:31 AM EDT Narrative Resulting Agency Comment Spec In Lab Mily Garcia MD CHEMISTRY ORDERABLES Performing Organization Address City/[facility]/ZIP Co de Phone Number [facility] [place] [address] * (ABNORMAL) Comprehensive metabolic panel (non-fasting) (06/28/2023 9:24 AM EDT) Pathologist [facility] Glucose 104 65 - 199 mg/dL [facility] Comment:Diabetes: >=200 mg/d L plus symptoms Blood Urea Nitrogen 29(H) 8 - 18 mg/dL [facility] Creatinine 0.75 0.70 - 1.20 mg/dL [facility] Sodium 140 135 - 145 mmol/L [facility] Potassium 4.9 3.5 - 5.0 mmol/L [facility] Comment: Please note: ??Patients with WBC >100,000 may have falsely elevated Potassium levels. ??For accurate Potassium quantification in these patients send serum separator tube (gold top) for subsequent determinations. ??Contact the Clinical Chemistry Laboratory if there are any questions. Chloride 103 98 - 107 mmol/L [facility] Carbon Dioxide 27 22 - 31 mmol/L [facility] Anion Gap 10 5 - 15 mmol/L [facility] Calcium 9.4 8.5 - 10.5 mg/dL [facility] Protein, Total 7.9 6.1 - 8.0 g/dL [facility] Albumin 4.4 3.2 - 5.2 g/dL [facility] Aspartate Aminotransferase 21 0 - 30 unit/L [facility] Alanine Aminotransferase 14 0 - 30 unit/L [facility] Alkaline Phosphatase 87 35 - 105 unit/L [facility] Bilirubin, Total 0.3 0.2 - 1.3 mg/dL [facility] Est Glomerular Filtration Rate 87 >=60 mL/min/1. 73 m?? [facility] Comment: This patient's estimated GFR [...] Agency Comment Spec In Lab Rebeca Yoon COLLISION REPAIR TECHNICIAN CHEMISTRY ORDERABL ES [facility] [place] [address] * (ABNORMAL) Prothrombin Time (06/28/2023 9:24 AM EDT) Prothrombin Time 12.9(H) 9.4 - 12.5 sec [facility] International Normalization Ratio 1.1 [facility] Comment: An INR <2.0 [...] Agency Comment Spec In Lab Rebeca Yoon COLLISION REPAIR TECHNICIAN HEMATOLOGY ORDERAB LES [facility] [place] [address] documented in this encounter Visit Diagnoses Diagnosis Autoimmune hepatitis 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
--- OUTSIDE RECORDS SUMMARY | 2024-08-18 17:57 | XMS_ITS | Data Portability ---
Author Organization [place] [facility], [facility] Address [address] [place] [address] Assessment No assessment recorded. Plan of Treatment Reminders Order Date Submit Date Provider Last Modified By Organization Details Last Modified Time Details Appointments Nurse Visit 20 2024 07:30A M [facility] Nursing Staff Not available Not available Not available Medicare Annual Wellness 40 2024 10:00A M ROMERO GOLDSMITH Not available Not available Not available Lab CBC 2023 025 [place] [id number] 63 [facility] (Registration ), [address] [place] [address] [place], [address], 06/29/2024 08:20:36 CMP, serum or plasma 2023 025 [email or web address] 63 [facility] (Registration ), [address] [place] [address] [place], [address], 06/29/2024 08:20:36 lipid panel, serum [address] Laboratory (Registration ), [address] [place] [address] [place], [address], 06/29/2024 08:20:36 Referral physical therapis t referral - left knee discomfo rt for several months. Possible medial meniscus patholog y 2023 024 [email or web address] Azael Mares PT, [address], [place], [address], 07/28/2024 10:24:55 Procedures None recorded . Surgeries None recorded . Imaging XR, thoracic spine, 2 view - Chronic back pain. No recent trauma [address] (Radiology), [address] [place] [address] [place], [address], 04/22/2024 15:22:38 XR, lumbar spine - Chronic back pain. No recent trauma [address] (Radiology), [address] [place] [address] [place], [address], 04/22/2024 15:22:33 MAMMO, screenin g, bilatera l [address] (Radiology), [address] [place] [address] [place], [address], 04/27/2024 16:04:45 DEXA - osteopor osis on 2020 [employer] 2023 024 LI [facility] (Radiology), [address] [place] [address] [place], [address], 07/09/2024 15:09:55 Medication Orders None recorded . Patient TargetsNo targets recorded. Patient Instructions Encounter Date Encounter Id Patient Instructions Last Modified By Organization Details Last Modified Time 01/30/2024 [id number] We will get an x-ray of your thoracic and lumbar spines. Continue with current medication. I will order a mammogram to do this summer. We will get a bone density this fall. edy Not available 01/30/2024 13:27:40 06/29/2024 [id number] exercise [email or web address] Not available 08:20:36 Rosalinda - we will send up a bone density test, and refer to PT for your left knee. We will get fasting blood work just prior. edy Not available 06/29/2024 08:15:25 Reason for Referral Physical Therapist Referral for Pain of left knee joint left knee discomfort for several months. Possible medial meniscus pathology Referring Physician: Romero Goldsmith, Family Medicine, Encounter Date: 06/29/2024 Results Created Date Observation Date Name Description Value Unit Range Abnormal Flag Note LastModifiedBy Organization Detail LastModifiedTime 08/18/20 24 08/18/2024 COMPL ETE BLOOD COUNT W/DIF F WBC 6.31 10_3/ uL 4.4-10 .8 normal Not Available [address] [place], [address] 08/18/2024 17:39:22 08/18/20 24 08/18/2024 COMPL ETE BLOOD COUNT W/DIF F RBC 4.85 10_6/ uL 3.93-5 .22 normal Not Available [address] [place], [address] 08/18/2024 17:39:22 08/18/20 24 08/18/2024 COMPL ETE BLOOD COUNT W/DIF F HGB 14.0 g/dL 11.2-1 5.7 normal Not Available [address] [place], [address] 08/18/2024 17:39:22 08/18/20 24 08/18/2024 COMPL ETE BLOOD COUNT W/DIF F HCT 42.2 % 36.0-4 6.0 normal Not Available [address] [place], [address] 08/18/2024 17:39:22 08/18/20 24 08/18/2024 COMPL ETE BLOOD COUNT W/DIF F MCV 87 fL 80-95 normal Not Available Yamilet morris [address] [place], [address] 08/18/2024 17:39:22 08/18/20 24 08/18/2024 COMPL ETE BLOOD COUNT W/DIF F MCH 28.9 pg 27.0-3 3.0 normal Not Available [address] [place], [address] 08/18/2024 17:39:22 08/18/20 24 08/18/2024 COMPL ETE BLOOD COUNT W/DIF F MCHC 33.2 % 32.0-3 6.0 normal Not Available [address] [place], [address] 08/18/2024 17:39:22 08/18/20 24 08/18/2024 COMPL ETE BLOOD COUNT W/DIF F RDW 13.8 % 11.7-1 4.6 normal Not Available [address] [place], [address] 08/18/2024 17:39:22 08/18/20 24 08/18/2024 COMPL ETE BLOOD COUNT W/DIF F platelet count 200 10_3/ uL 130-40 0 normal Not Available [address] [place], [address] 08/18/2024 17:39:22 08/18/20 24 08/18/2024 COMPL ETE BLOOD COUNT W/DIF F MPV 10.0 fL 8.0-11 .0 normal Not Available [address] [place], [address] 08/18/2024 17:39:22 08/18/20 24 08/18/2024 COMPL ETE BLOOD COUNT W/DIF F neutrophils % 56.7 % Not Available [address] [place], [address] 08/18/2024 17:39:22 08/18/20 24 08/18/2024 COMPL ETE BLOOD COUNT W/DIF F lymphocytes % 30.0 % Not Available [address] [place], [address] 08/18/2024 17:39:22 08/18/20 24 08/18/2024 COMPL ETE BLOOD COUNT W/DIF F monocytes % 11.9 % Not Available [address] [place], [address] 08/18/2024 17:39:22 08/18/20 24 08/18/2024 COMPL ETE BLOOD COUNT W/DIF F eosinophils % 0.2 % Not Available [address] [place], [address] 08/18/2024 17:39:22 08/18/20 24 08/18/2024 COMPL ETE BLOOD COUNT W/DIF F basophils % 1.0 % Not Available [address] [place], [address] 08/18/2024 17:39:22 08/18/20 24 08/18/2024 COMPL ETE BLOOD COUNT W/DIF F immature grans % 0.2 % Not Available [facility] [address] [place], [address] 08/18/2024 17:39:22 08/18/20 24 08/18/2024 COMPL ETE BLOOD COUNT W/DIF F nucleated RBC 0.0 % 0.0-0. 3 normal Not Available [address] [place], [address] 08/18/2024 17:39:22 08/18/20 24 08/18/2024 COMPL ETE BLOOD COUNT W/DIF F absolute neutrophil count 3.59 10_3/ uL 1.2-6. 7 normal Not Available [address] [place], [address] 08/18/2024 17:39:22 08/18/20 24 08/18/2024 COMPL ETE BLOOD COUNT W/DIF F absolute lymphocyte count 1.89 10_3/ uL 1.2-3. 4 normal Not Available [address] [place], [address] 08/18/2024 17:39:22 08/18/20 24 08/18/2024 COMPL ETE BLOOD COUNT W/DIF F absolute monocyte count 0.75 10_3/ uL 0.1-0. 8 normal Not Available [address] [place], [address] 08/18/2024 17:39:22 08/18/20 24 08/18/2024 COMPL ETE BLOOD COUNT W/DIF F absolute eosinophil count 0.01 10_3/ uL 0.0-0. 7 normal Not Available [address] [place], [address] 08/18/2024 17:39:22 08/18/20 24 08/18/2024 COMPL ETE BLOOD COUNT W/DIF F absolute basophil count 0.06 10_3/ uL 0.0-0. 2 normal Not Available [address] [place], [address] 08/18/2024 17:39:22 08/18/20 24 08/18/2024 MICRO SCOPI C FINDI NGS WBC 10-20 hpf 0-5 abnormal Not Available [address] [place], [address] 08/18/2024 17:12:16 08/18/20 24 08/18/2024 MICRO SCOPI C FINDI NGS RBC 3-5 hpf 0-2 abnormal Not Available [address] [place], [address] 08/18/2024 17:12:16 08/18/20 24 08/18/2024 MICRO SCOPI C FINDI NGS epithelial cells Few hpf negati ve Not Available [address] [place], [address] 08/18/2024 17:12:16 08/18/20 24 08/18/2024 MICRO SCOPI C FINDI NGS other cells Rare Transi tional negati ve Not Available [address] [place], [address] 08/18/2024 17:12:16 08/18/2008/18/2024 MICRO SCOPI C FINDI NGS bacteria Negati ve hpf negati ve Not Available [address] [place], [address] 08/18/2024 17:12:16 08/18/20 24 08/18/2024 MICRO SCOPI C FINDI NGS crystals Negati ve hpf negati ve Not Available [address] [place], [address] 08/18/2024 17:12:16 08/18/20 24 08/18/2024 MICRO SCOPI C FINDI NGS mucus Modera te negati ve Not Available [address] [place], [address] 08/18/2024 17:12:16 08/18/20 24 08/18/2024 MICRO SCOPI C FINDI NGS C S indicated? Yes Not Available [address] [place], [address] 08/18/2024 17:12:16 08/18/20 24 08/18/2024 URINA LYSIS color Yellow yellow Not Available Yamilet morris [address] [place], [address] 08/18/2024 17:12:16 08/18/20 24 08/18/2024 URINA LYSIS clarity Sl Cloudy clear Not Available Koffi mueller [address] [place], [address] 08/18/2024 17:12:16 08/18/20 24 08/18/2024 URINA LYSIS specific gravity 1.020 1.005- 1.025 normal Not Available [address] [place], [address] 08/18/2024 17:12:16 08/18/2008/18/2024 URINA LYSIS pH 5.5 5-8 normal Not Available Yamilet morris [address] [place], [address] 08/18/2024 17:12:16 08/18/20 24 08/18/2024 URINA LYSIS leukocyte esterase Small negati ve abnormal Not Available [address] [place], [address] 08/18/2024 17:12:16 08/18/20 24 08/18/2024 URINA LYSIS nitrite Negati ve negati ve Not Available [address] [place], [address] 08/18/2024 17:12:16 08/18/20 24 08/18/2024 URINA LYSIS protein Negati ve mg/dL neg-tr nunu Not Available [address] [place], [address] 08/18/2024 17:12:16 08/18/20 24 08/18/2024 URINA LYSIS glucose Negati ve mg/dL negati ve Not Available [address] [place], [address] 08/18/2024 17:12:16 08/18/20 24 08/18/2024 URINA LYSIS ketones Trace mg/dL negati ve abnormal Not Available [address] [place], [address] 08/18/2024 17:12:16 08/18/20 24 08/18/2024 URINA LYSIS urobilinogen 1.0 mg/dL up to 0.2 abnormal Not Available [address] [place], [address] 08/18/2024 17:12:16 08/18/20 24 08/18/2024 URINA LYSIS bilirubin Negati ve negati ve Not Available [address] [place], [address] 08/18/2024 17:12:16 08/18/20 24 08/18/2024 URINA LYSIS blood Trace- intact negati ve abnormal Not Available [address] [place], [address] 08/18/2024 17:12:16 08/18/2008/18/2024 URINA LYSIS color Yellow yellow Not Available Yamilet morris [address] [place], [address] 08/18/2024 17:11:15 08/18/20 24 08/18/2024 URINA LYSIS clarity Sl Cloudy clear Not Available Koffi mueller [address] [place], [address] 08/18/2024 17:11:15 08/18/20 24 08/18/2024 URINA LYSIS specific gravity 1.020 1.005- 1.025 normal Not Available [address] [place], [address] 08/18/2024 17:11:15 08/18/20 24 08/18/2024 URINA LYSIS pH 5.5 5-8 normal Not Available Yamilet morris [address] [place], [address] 08/18/2024 17:11:15 08/18/20 24 08/18/2024 URINA LYSIS leukocyte esterase Small negati ve abnormal Not Available [address] [place], [address] 08/18/2024 17:11:15 08/18/20 24 08/18/2024 URINA LYSIS nitrite Negati ve negati ve Not Available [address] [place], [address] 08/18/2024 17:11:15 08/18/20 24 08/18/2024 URINA LYSIS protein Negati ve mg/dL neg-tr nunu Not Available [address] [place], [address] 08/18/2024 17:11:15 08/18/20 24 08/18/2024 URINA LYSIS glucose Negati ve mg/dL negati ve Not Available [address] [place], [address] 08/18/2024 17:11:15 08/18/20 24 08/18/2024 URINA LYSIS ketones Trace mg/dL negati ve abnormal Not Available [address] [place], [address] 08/18/2024 17:11:15 08/18/20 24 08/18/2024 URINA LYSIS urobilinogen 1.0 mg/dL up to 0.2 abnormal Not Available [address] [place], [address] 08/18/2024 17:11:15 08/18/20 24 08/18/2024 URINA LYSIS bilirubin Negati ve negati ve Not Available [address] [place], [address] 08/18/2024 17:11:15 08/18/20 24 08/18/2024 URINA LYSIS blood Trace- intact negati ve abnormal Not Available [address] [place], [address] 08/18/2024 17:11:15 02/10/20 24 02/10/2024 XR, thora cic spine , 2 view Patien t Name: Carr Unit #: [id number] Loc: DI Orderi ng Provid er: Yazan on,Fang ellison Accnic t #: [id number] Status : REG CLI Primar [...] bution by any person other than this [facility] er is strict ly prohib ited. If you receiv e this report in error, please notify us immedi ately at [phone] and return the origin al report to us at the addres s above. Thank- you. edy [facility] (Radiology) [address] [place] [address] [place], [address], 08/04/2024 16:24:12 02/10/20 24 02/10/2024 XR, lumba r spine Patien t Name: Carr Unit #: [id number] Loc: DI Orderi ng Provid er: Fang Suarez Accnic t #: [id number] Status : REG CLI Primar [...] above. Thank- you. edy [facility] (Radiology) [address] [place] [address] Dr, [place], [address], 08/04/2024 16:25:47 04/27/20 24 04/27/2024 MAMMO , scree justen, bilat eral Dora t Name: Carr Unit #: [id number] Loc: DI Orderi ng Provid er: Yazan on,Fang ellison Accoun t #: [id number] Status : REG CLI Primar y Care Provid er: Unknow n,Unkn own Date of Exam: Sex: F Admiss ion Date: : 1954 Age: 69 Exam(s ) MG MAMMO SCREEN ING EXAM: MG MAMMO SCREEN ING CLINIC AL HISTOR Y: SCREEN ING,Z1 2.31 TECHNI QUE: Mammog noemi were interp reted accord ing to the usual protoc ol includ ing comput er analys is with CAD system , tomosy nthesi s and C-view imagin g. COMPAR CELSO: 2015 throug h 2022 FINDIN GS: The breast s are compos ed of mainly fatty densit y , Breast Densit y catego ry A. No suspic ious masses or suspic ious microc alcifi cation s are seen. No skin thicke justen or abnorm al axilla ry lymph nodes are seen. There has been no signif icant change from prior exams. IMPRES MARGARET: BI-RAD S Catego ry 1, Negati ve mammog mikki Yearly screen ing mammog tala is recomm ended. Breast Densit y - Catego ry A, fatty densit y. A negati ve radiog raphic report should not delay biopsy if a domina nt or clinic ally suspic ious mass is presen t. Up to ten percen t of cancer s are not identi fied on mammog tala. A negati ve report may reinfo rce clinic al impres margaret. Adenos is and dense breast s may obscur e an underl kinza neopla sm. False positi ve report s averag e 6 to 10%. Dora t will receiv e a letter notify ing them of these result s. Ordere d By: Fang Suarez CC: ------ ------ ------ ------ ------ ------ ------ ------ ------ ------ ------ ------ - Dictat ed By: Daiana Perry 1122 112 Transc ribed By: Reynaldo Hale 1122 This is privil eged, confid ential inform ation intend ed only for the provid er named. Any use or distri bution by any person other than this provid er is strict ly prohib ited. If you receiv e this report in error, please notify us immedi yajairaly at and return the origin al report to us at the addres s above. Thank- you. [email or web address] [facility] (Radiology) [facility] [place], [address], 05/08/2024 09:28:18 07/09/20 24 07/09/2024 CAROL graves Name: Carr Unit #: [id number] Loc: DI Orderi ng Provid er: Fang Suarez Accoun t #: [id number] Status : REG CLI Primar y Care Provid er: Fang Suarez Date of Exam: Sex: F Admiss ion Date: : 1954 Age: 69 Exam(s ) XR DEXA BONE DENSIT Y W/WO JOAN EXAM: XR DEXA BONE DENSIT Y W/WO JOAN CLINIC AL HISTOR Y: OSTEOP OROSIS M81.0 TECHNI QUE: Routin e DEXA evalua tion of the lumbar spine, hip, or forear m. COMPAR CELSO: Prior DEXA scan 2020 FINDIN GS: Perfor med on a Hologi c unit. Latera l image: No compre ssion fractu re eviden t. Lumbar Spine total T-scor e: -0.9. Prior readin g in 2000 was -1.2 Hip total T-scor e:-1 point. Prior readin g in 2020 was -2.1 Indepe ndent readin g at the level of the femora l neck yields T-scor e of -2.9. This is in the osteop orosis range. Forear m total T-scor e: -3.9. This is in the osteop orosis range. Prior readin g in 2020 was -3.0 IMPRES MARGARET: Bone minera l densit y measur es in the osteop orosis range. Fractu re risk is high. Note: Any spine fractu re indica natalio 5x risk for subseq uent spine fractu re and 2x risk for subseq uent hip fractu re. World Health Organi zation criter ia for BMD interp retati on classi fy patien ts: Normal ...... T- Score at or above -1.0 Osteop enic.. . T- Score betwee n -1.0 and -2.5 Osteop orosis ... T-Scor e at or below -2.5 Ordere d By: Fang Suarez CC: ------ ------ ------ ------ ------ ------ ------ ------ ------ ------ ------ ------ - Dictat ed By: Kirk Sears M.D. 1141 1141 Transc ribed By: Renu GO,Ambrocio maggie 1141 This is privil eged, confid ential inform ation intend ed only for the provid er named. Any use or distri bution by any person other than this provid er is strict ly prohib ited. If you receiv e this report in error, please notify us immedi ately at [phone] and return the origin al report to us at the addres s above. Thank- you. [email or web address] [facility] (Radiology) [address] [place], [address], 07/29/2024 09:06:08 08/06/20 24 08/06/2024 XR, knee, 3 view Patien t Name: Carr Unit #: [id number] Loc: DI Orderi ng Provid er: Fang Suarez Accoun t #: [id number] Status : REG CLI Primar y Care Provid er: Fang Suarez Date of Exam: Sex: F Admiss ion Date: : 1954 Age: 69 Exam(s ) XR KNEE LT 3V AP,LAT ,PETE EXAM: XR KNEE LT 3V AP,LAT ,PETE CLINIC AL HISTOR Y: LT KNEE PAIN, M25.56 2. TECHNI QUE: 2D digita l imagin g was perfor med of the left knee. Three images were obtain ed. AP, latera l and PA tunnel views were obtain ed. COMPAR CELSO: There are no priors for compar celso. FINDIN GS: BONES: No acute fractu re is presen t. No bony destru ctive lesion is seen. There are enthes ophyte s at the anteri or patell a. JOINTS : The knee is normal ly aligne d. No joint effusi on is seen. No loose body. SOFT TISSUE : Normal . IMPRES MARGARET: No acute abnorm ality. DATA REPOSI TORY: RADIAT ION DOSE DELIVE RED: Ordere d By: Fang Suarez CC: ------ ------ ------ ------ ------ ------ ------ ------ ------ ------ ------ ------ - Dictat ed By: Gregory Roy M.D. 1548 1547 Transc ribed By: Gregory Roy 1548 This is privil eged, confid ential inform ation intend ed only for the provid er named. Any use or distri bution by any person other than this provid er is strict ly prohib ited. If you receiv e this report in error, please notify us immedi faina at and return the origin al report to us at the addres s above. Thank- you. [email or web address] [place] [address] (Radiology) [address] [place] [address] Dr, [place], [address], 08/07/2024 12:19:42 Result Notes None recorded. Problems Name Problem SNOMED Code Status Onset Date Resolution Date Notes Provider Name and Address Organization Details Recorded Time Celiac disease 698091629 Active 2023 FLOR BARNETT [facility] 13:27:12 Depressi ve disorder 79723126 Active 2023 FLOR BARNETT, [facility] 13:27:39 Fibromya lgia 482530489 Active 2023 FLOR BARNETT, [facility] 13:36:01 Gastroes ophageal reflux disease 804340775 Active 2023 FLOR BARNETT [facility] 13:29:32 Hyperlip idemia 27545048 Active 2023 FLOR BARNETT [facility] 13:29:51 Migraine 75882765 Active 2011 FLOR BARNETT [facility] 13:30:49 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 Followed by [facility]. Due for egd 2023. No varices on 2021 egd. Liver biopsy 2021. [address], [place], [address], [facility] 18:00:16 Chronic back pain 578056936 Active [address], [place], [address], [facility] 18:00:13 Osteopor osis 05708254 Active 2023 only on forearm 2020 Dexa, on forearm and hip on [address], [place], [address], [facility] 16:24:13 Insomnia 792149554 Active [address], [place], [address], [facility] 4 18:13:20 Restless legs 92430402 Active [address], [place], [address], [facility] 4 18:13:26 Problem Notes None recorded. Procedures Surgical History Date Name Laterality Status Provider Name and Address Organization Details Recorded Time 2022 Most Recent Mammogram completed YAEL BRASWELL RN [facility] 4 10:47:44 2022 Date of Last Colonoscopy completed YAEL BRASWELL RN [facility] 4 10:48:07 2015 extraction of cataract completed BISI FLYNN MA [facility] 4 13:41:13 2012 esophagogastroduodenoscopy completed BIRDIE FLYNN MA [facility] 4 13:40:43 2005 abdominal hysterectomy completed [address], [place], [address] , [facility] 4 18:02:29 2005 oophorectomy completed BISI FLYNN MA [facility] 4 13:44:10 2004 re-release of carpal tunnel completed ZEKE FLYNN MA [facility] 4 13:44:53 2003 total knee replacement completed [address], [place], [address] , [facility] 4 18:02:57 2002 excision of cervical intervertebral disc completed [address], [facility] [address], [facility] 4 18:03:31 2001 ligation of fallopian tube completed BIRDIE FLYNN MA [facility] 4 13:41:31 2000 Shoulder joint surgery completed [address], [place], [address], [facility] 4 18:04:19 1998 cholecystectomy completed [address], [place], [address], [facility] 4 18:03:57 1996 re-release of carpal tunnel completed ZEKE FLYNN MA [facility] 4 13:45:33 Imaging Results Imaging Date Name Status LastModified by [facility] Details LastModified Time 02/10/2024 XR, thoracic spine, 2 view completed [email or web address] [place] [address] (Radiology) [address] [place] [address] [place], [address], 08/04/2024 16:24:12 02/10/2024 XR, lumbar spine completed [email or web address] [place] [address] (Radiology) [address] [place] [address] [place], [address], 08/04/2024 16:25:47 04/27/2024 MAMMO, screening, bilateral completed [email or web address] [facility] (Radiology) [address] [place] [address] [place], [address], 05/08/2024 09:28:18 07/09/2024 DEXA completed [email or web address] [facility] (Radiology) [address] [place] [address] [place], [address], 07/29/2024 09:06:08 08/06/2024 XR, knee, 3 view completed [email or web address] [place] [address] (Radiology) [address] [place] [address] [place], [address], 08/07/2024 12:19:42 Procedure Notes None recorded. Medical Equipment None Reported. Allergies Allergen ID Allergen Name Allergen Category Reaction Reaction Severity Criticality Documentation Date Start Date Code Code System Note Provider Name and Address Organization Details Recorded Time 21155 lisinopri l medicatio n cough moderate Not available 11/18/20232018 94110 RxNorm BISI FLYNN MA null, [facility] 13:18:05 23625 morphine medicatio n Not available Not available Not available 11/18/20232018 7052 RxNorm visua l distu rbanc e YAEL BRASWELL RN [facility], [facility] 10:58:17 47462 gabapenti n medicatio n Not available Not available Not available 11/18/20232018 67998 RxNorm night christian YAEL BRASWELL RN [facility], [facility] 10:58:01 Medications Name Sig Start Date Stop [...] Not Available Not Available Not Avai lable ibandronate 150 mg tablet Take 1 tablet every month by oral route. 2023 active Not Available [...] Address Organization Details Last Updated DateTime 4 30968.8 1 g 98.8 [degF] 98 % 98 % 15 /min 86 /min 124 mm[Hg] 68 mm[Hg] MEAGAN MOBLEY RN [facility] 4 12:57:59 Date Recorded Body weight Body temperature Oxygen saturation Oxygen saturation in Arterial blood by Pulse oximetry Respiratory rate Heart rate Systolic blood pressure Diastolic blood pressure Provider Name and Address Organization Details Last Updated DateTime 4 01642.7 7 g 98.2 [degF] 97 % 97 % 15 /min 92 /min 140 mm[Hg] 80 mm[Hg] MEAGAN MOBLEY RN [facility] 4 13:43:08 Date Recorded Body weight Body mass index (BMI) Body height Body temperature Respiratory rate Oxygen saturation Oxygen saturation in Arterial blood by Pulse oximetry Heart rate Systolic blood pressure Diastolic blood pressure Provider Name and Address Organization Details Last Updated DateTime 4 87412.9 6 g 35.1 kg/m2 156.21 cm 98.6 [degF] 14 /min 99 % 99 % 94 /min 122 mm[Hg] 70 mm[Hg] MEAGAN MOBLEY RN [facility] 07:59:56 Social History Question Answer Notes LastModified by Organizat ion Details LastModified Time Tobacco Smoking Status Never Smoker YAEL BRASWELL RN [facility], [facility] 11/27/2023 10:36:49 Do You Have An Advance [...] Diet? Yes Information not available 11/27/2023 What Was The Date Of Your Most Recent Tobacco Screening? 06/29/2024 rbarter Information not available 06/29/2024 What Is Your Relationship Status? Information not [...] Age of this Age Resolved Age Notes LastModified by Organization Details LastModified Time Mother Malignant tumor of colon [email or web address] Not available 2023 13:48:49 Mother Diabetes mellitus [email or web address] Not available 2023 13:49:00 Mother Heart disease [email or web address] Not available 2023 13:49:16 Father Malignant tumor of colon [email or web address] Not available 2023 13:49:30 Father Diabetes mellitus [email or web address] Not available 2023 13:49:53 Father Essential hypertension [email or web address] Not available 13:50:32 Sister Heart disease [email or web address] Not available 2023 13:50:08 Sister Malignant tumor of breast [email or web address] Not available 2023 13:50:44 Sister Celiac disease [email or web address] Not available 2023 13:50:56 Sister Disorder of thyroid gland [email or web address] Not available 2023 13:51:17 Sister Leukemia [email or web address] Not available 11/18/2023 13:51:47 Unspecified Relation Malignant tumor of digestive organ [email or web address] Not available 2023 13:52:24 Medical History No medical history recorded. Gynecological History Statement/Question Response Current Control Method Hysterectom y Date of Last Colonoscopy 09/30/2022 Most Recent Mammogram 09/30/2022 Obstetrics History GPAL:G 0 P 0 0 0 0 Immunizations Vaccine Type Date Status Provider Name and Address Organization Details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
--- OUTSIDE RECORDS SUMMARY | 2024-08-18 17:57 | XMS_ITS | Encounter Summary ---
Author Organization [facility] [place] [address] Care Team Providers Care Filler Shredding Machine Loader Name Role Phone Sanam Bennett MERARI Primary [...] 09/17/2024 9:00 AM [place] [phone] Mily Garcia MD [facility] [place] [address] 09/17/2024 9:45 AM EST Laboratory Appointment Lab [address] [place] [phone] 09/17/2024 11:30 AM EST Office [place] [address] Mily Garcia MD [facility] [place] [address] documented as of this encounter Visit Diagnoses Not on filedocumented in this encounter Care Teams Filler Shredding Machine Loader Relationship Specialty Start Date End Date Sanam Bennett APRN [address] [place] [address] [address] [place] [address] PCP - General Family Medicine 09/06/22 documented as of this encounter
--- OUTSIDE RECORDS SUMMARY | 2024-08-18 17:57 | XMS_ITS | Encounter Summary ---
Author Organization [facility] [place] [address] Care Team Providers Care Field Contact Technician Name Role Phone Sanam Bennett MERARI Primary [...] 09/17/2024 9:00 AM EST [place] [phone] Mily Garcia MD [facility] [place] [address] 09/17/2024 9:45 AM EST Laboratory Appointment Lab [address] [place] [phone] 09/17/2024 11:30 AM EST Office [place] [address] Mily Garcia MD [facility] [place] [address] documented as of this encounter Visit Diagnoses Not on filedocumented in this encounter Care Teams Field Contact Technician Relationship Specialty Start Date End Date Sanam Bennett APRN [address] [place] [address] [address] [place] [address] PCP - General Family Medicine 09/06/22 documented as of this encounter
--- OUTSIDE RECORDS SUMMARY | 2024-08-18 17:57 | XMS_ITS | Encounter Summary ---
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 Bqqn-ul-yjvhhyxu steatosis is present. Trichrome stain highlights advanced [...] Vitals: 06/28/23 1128 BP: 124/57 BP Location ([facility]): Right arm Patient Position: Sitting BP Cuff [...] Garcia MD Section of Gastroenterology & Hepatology [address] [place] [address] Time spent reviewing records prior to this [...] 09/17/2024 9:00 AM EST [place] [address] Mily Garcia MD [facility] [place] [address] 09/17/2024 9:45 AM EST Laboratory Appointment Lab [address] [place] [address] 09/17/2024 11:30 AM EST Office [place] [address] Mily Garcia MD [facility] [place] [address] Scheduled Orders Name Type Priority Associated Diagnoses [...] EDT) TTG IgA Ab <0.4 <=10.0 u/ml [facility] Comment: Negative: ??<7 units/mL Indeterminate: 7-10 units/mL Positive: ??>10 units/mL Blood 02/07/2024 10:0 6 AM EDT 02/10/2024 7:34 AM EDT Narrative Resulting Agency Comment Spec In Lab Mily Garcia MD IMMUNOLOGY ORDERABLE S [facility] [place] [address] * AFP tumor marker (02/07/2024 10:06 AM EDT) Alpha Fetoprotein 3.0 <=8.3 ng/mL [facility] Comment: This result was generated using a Radha Anshu immunoassay. ??Results obtained from other methods or manufacturers cannot be used interchangeably with this method. Blood 02/07/2024 10:0 6 AM EDT 02/07/2024 10:21 AM EDT Narrative Resulting Agency Comment Spec In Lab Mily Garcia MD CHEMISTRY ORDERABLES Performing Organization Address [facility] de Phone Number [facility] [place] [address] * Prothrombin Time (02/07/2024 10:06 AM EDT) Prothrombin Time 11.8 9.4 - 12.5 sec [facility] International Normalization Ratio 1.0 [facility] Comment: An INR <2.0 [...] MD HEMATOLOGY ORDERABLE S Performing Organization Address [facility] Co de Phone Number [facility] [place] [address] * (ABNORMAL) Comprehensive metabolic panel (non-fasting) (02/07/2024 10:06 AM EDT) Glucose 93 65 - 199 mg/dL [facility] Comment:Diabetes: >=200 mg/d L plus symptoms Blood Urea Nitrogen 17 8 - 18 mg/dL [facility] Creatinine 0.63(L) 0.70 - 1.20 mg/dL [facility] Sodium 141 135 - 145 mmol/L [facility] Potassium 4.4 3.5 - 5.0 mmol/L [facility] Comment: Please note: ??Patients with WBC >100,000 may have falsely elevated Potassium levels. ??For accurate Potassium quantification in these patients send serum separator tube (gold top) for subsequent determinations. ??Contact the Clinical Chemistry Laboratory if there are any questions. Chloride 104 98 - 107 mmol/L [facility] Carbon Dioxide 26 22 - 31 mmol/L [facility] Anion Gap 11 5 - 15 mmol/L [facility] Calcium 9.1 8.5 - 10.5 mg/dL [facility] Protein, Total 7.7 6.1 - 8.0 g/dL [facility] Albumin 4.4 3.2 - 5.2 g/dL [facility] Aspartate Aminotransferase 25 0 - 30 unit/L [facility] Alanine Aminotransferase 14 0 - 30 unit/L [facility] Alkaline Phosphatase 83 35 - 105 unit/L [facility] Bilirubin, Total 0.2 0.2 - 1.3 mg/dL [facility] Est Glomerular Filtration Rate 97 >=60 mL/min/1. 73 m?? [facility] Comment: This patient's estimated [...] In Lab Mily Garcia MD CHEMISTRY ORDERABLES [facility] [place] [address] * US Abdomen Limited Hepatology Protocol (02/07/2024 9:16 AM EDT) WORKSTATION ID [id number] RAD Anatomical Region Laterality Modality Abdomen Ultrasound [...] who have questions, please contact the health college and career counselor that requested your imaging first. ?Que Tee, Staff Physician Electronically Signed Final Report ?? 02/07/2024 09:42 am Narrative 02/07/2024 9:42 AM EDT Abdominal ? (Signed Final 02/07/2024 09:42 am) PATIENT INFO: ID #: ? [id number] ?: ??[birth year] (68 yrs)(F) Name: ? GENOVEVA A ?Visit Date: 02/07/2024 09:16 am ? CASEY PERFORMED BY: Attending: ?Randal GO, Qeu Mathis Resident: ? Ana María GO, Bobby Performed By: ? Cecy Krueger RDMS Referred By: ?MILY GARCIA Location: ? [place] [facility] Hep[facility] Protocol - Abdominal ?92517 Limited Survey Single Organ or Quadrant - [id number] INDICATIONS: cirrhosis, HCC screening TECHNIQUE/SCAN QUALITY: Scan [...] 02/07/2024 09:42 am) PATIENT INFO: ID #: [id number] : [birth year] (68 yrs)(F) Name: GENOVEVA Zaragoza Visit Date: 02/07/2024 09:16 am CASEY PERFORMED BY: Attending: Que Tee MD Resident: Bobby Gotti MD Performed By: Cecy Krueger RDMS Referred By: MILY GARCIA Location: [place] SERVICE(S) PROVIDED: [facility] - Hepatology Protocol - Abdominal 90494 Limited Survey Single Organ or Quadrant - [id number] INDICATIONS: cirrhosis, HCC screening TECHNIQUE/SCAN QUALITY: Scan [...] who have questions, please contact the health college and career counselor that requested your imaging first. Que Tee, [...] hepatitis documented in this encounter Care Teams Toe Former Relationship Specialty Start Date End Date Sanam Bennett APRN [address] [place] [address] PCP - General Family Medicine 09/06/22 documented as of this encounter
--- OUTSIDE RECORDS SUMMARY | 2024-08-18 17:57 | XMS_ITS | Clinical Summary ---
Author Organization [facility] Address [facility] [place] [address] Care Team Providers Care Sharepoint Consultant Name Role Phone Sanam Bennett APRN Primary Care Provider Allergies Active Allergy Reactions Criticality Noted Date [...] Diagnosed Date Resolved Date Gastritis 05/06/2013 10/06/2013 Family [...] 09/17/2024 9:00 AM [place] [phone] Mily Garcia MD [facility] [place] [address] 09/17/2024 9:45 AM EST Laboratory Appointment Lab [address] [place] [phone] 09/17/2024 11:30 AM EST Office [place] [phone] Mily Garcia MD [facility] [address] Health Maintenance Due Date Last Done Comments CT Colonography 1955 FIT DNA 1955 FIT 1955 Sigmoidoscopy 1955 Hepatitis C Screening 1973 Tetanus/Diphtheria/Pertussis Vaccines (1 - Tdap) 1974 Breast Cancer Share Decision Needed 1995 Breast Cancer screening 1995 Zoster vaccine (1 of 2) 2005 Advance Directive 2010 Bone Density Scan 02/26/2020 Pneumoccocal Vaccine: 65+ (1 of 1 - PCV) 02/26/2020 Covid-19 Vaccine ( - 2023-2 5 season) 2024 Influenza (Flu) vaccine (1 o f 1 - Influenza standard series) 05/31/2024 Diabetes Screening (HgbA1C o r Glucose) 02/06/2027 02/07/2024, 06/28/2023, 02/04/2023, Additional history exists Colonoscopy 09/10/2027 09/10/2022, 09/10/2022 Colorectal Cancer Screening 09/10/2027 Sigmoidoscopy (10 year) with FIT yearly 09/10/2032 09/10/2022, 09/10/2022 Procedures Procedure Name Priority Date/Time Associated Diagnosis Comments COMPREHENSIVE METABOLIC PANEL Routine 02/07/2024 10:06 AM EDT Hepatic cirrhosis, unspecified hepatic cirrhosis type, unspecified whether ascites present Autoimmune hepatitis COLONOSCOPY Routine 09/10/2022 2:46 PM EST from Last 3 Months or Most Recently Relevant to Health Maintenance Results * (ABNORMAL) Comprehensive metabolic panel (non-fasting) (02/07/2024 10:06 AM EDT) Glucose 93 65 - 199 mg/dL [facility] Comment:Diabetes: >=200 mg/d L plus symptoms Blood Urea Nitrogen 17 8 - 18 mg/dL [facility] Creatinine 0.63(L) 0.70 - 1.20 mg/dL [facility] Sodium 141 135 - 145 mmol/L [facility] Potassium 4.4 3.5 - 5.0 mmol/L [facility] Comment: Please note: ??Patients with WBC >100,000 may have falsely elevated Potassium levels. ??For accurate Potassium quantification in these patients send serum separator tube (gold top) for subsequent determinations. ??Contact the Clinical Chemistry Laboratory if there are any questions. Chloride 104 98 - 107 mmol/L [facility] Carbon Dioxide 26 22 - 31 mmol/L [facility] Anion Gap 11 5 - 15 mmol/L [facility] Calcium 9.1 8.5 - 10.5 mg/dL [facility] Protein, Total 7.7 6.1 - 8.0 g/dL [facility] Albumin 4.4 3.2 - 5.2 g/dL [facility] Aspartate Aminotransferase 25 0 - 30 unit/L [facility] Alanine Aminotransferase 14 0 - 30 unit/L [facility] Alkaline Phosphatase 83 35 - 105 unit/L [facility] Bilirubin, Total 0.2 0.2 - 1.3 mg/dL [facility] Est Glomerular Filtration Rate 97 >=60 mL/min/1. 73 m?? [facility] Comment: This patient's estimated GFR [...] In Lab Mily Garcia MD CHEMISTRY ORDERABLES [facility] [place] [address] * COLONOSCOPY (09/10/2022 2:46 PM EST) COLONOSCOPY [facility] Endoscopy Procedure Date: 09/10/2022 2:46 PM ? Patient Name: Genoveva Whiting ? N: [id number] ? Date of : 1955 ? Age: 67 ? Order #: [id number] ? Instrument Name: [id number] ? Procedure: ? Colonoscopy Indications: ? Family history of colon cancer in ? multiple first-degree relatives Providers: ? Matthew Najera MD, Yunior Neri ? Pierre, RAÚL, Jelena Torres MD: ?Genoveva Maher MD, Sanam [...] Recently Relevant to Health Maintenance Care Teams Sharepoint Consultant Relationship Specialty Start Date End Date Sanam Bennett APRN [address] [place] [address] PCP - General Family Medicine 09/06/22
--- OUTSIDE RECORDS SUMMARY | 2024-08-18 17:57 | XMS_ITS | Encounter Summary ---
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 Xusr-go-mrlhacvp steatosis is present. Trichrome stain highlights advanced [...] Interval History: She found the visit with cryptanalyst very helpful. She has expanded her diet (more fruits and veg). She denies GI bleeding, jaundice, and ascites. She has noted more issues with memory mainly with correction memory but also in her day to [...] Vitals: 03/28/23 1036 BP: 132/66 BP Location ([facility]): Right arm Patient Position: Sitting BP Cuff [...] MD Section of Gastroenterology & Hepatology [address] [place] [address] Time spent reviewing records prior to this [...] 09/17/2024 9:00 AM EST Appointment [place] [address] Mily Garcia MD [facility] [place] [address] 09/17/2024 9:45 AM EST Laboratory Appointment Lab [address] [place] [address] 09/17/2024 11:30 AM EST Office [place] [address] Miyl Garcia MD [facility] [place] [address] Scheduled Orders Name Type Priority [...] AFP tumor marker (06/28/2023 9:24 AM EDT) Alpha Fetoprotein 3.2 <=8.3 ng/mL [facility] Comment: This result was generated using a Radha Anshu immunoassay. ??Results obtained from other methods or manufacturers cannot be used interchangeably with this method. Blood 06/28/2023 9:24 AM EDT 06/28/2023 9:31 AM EDT Narrative Resulting Agency Comment Spec In Lab Mily Garcia MD CHEMISTRY ORDERABLES Performing Organization Address City/State/[facility] Co de Phone Number [facility] [place] [address] * US Abdomen Limited Hepatology Protocol (06/28/2023 [...] who have questions, please contact the health ostomy care nurse that requested your imaging first. ?Damian Almazan, Staff Physician Electronically Signed Final Report ?? 06/28/2023 09:20 am Narrative 06/28/2023 9:21 AM EDT Abdominal ? (Signed Final 06/28/2023 09:20 am) PATIENT INFO: ID #: ? [id number] ?: ??[birth year] (68 yrs)(F) Name: ? GENOVEVA Mila ?Visit Date: 06/28/2023 09:00 am ? KISHA PERFORMED BY: Attending: ?Damian Almazan MD Performed By: ? Stefania Thomas RDMS Referred By: ?MILY GARCIA Location: ? [place] [facility] Hep[facility]ology Protocol - Abdominal ?11622 Limited Survey Single Organ or Quadrant - [id number] INDICATIONS: cirrhosis, HCC screening COMPARISON: US: Hepatology [...] 06/28/2023 09:20 am) PATIENT INFO: ID #: [id number] : 55 (68 yrs)(F) Name: GENOVEVA Zaragoza Visit Date: 06/28/2023 09:00 am KISHA PERFORMED BY: Attending: Damian Almazan MD Performed By: Stefania Thomas RDMS Referred By: MILY GARCIA Location: [place] SERVICE(S) PROVIDED: [facility] - Hepatology Protocol - Abdominal 74175 Limited Survey Single Organ or Quadrant - [id number] INDICATIONS: cirrhosis, HCC screening COMPARISON: US: Hepatology [...] signed by: Damian Almazan MD, [facility] ([phone]), at 06/28/2023 9:14 AM Thank you for letting us participate in the care of this patient. If you are a health care provider and have any questions regarding this report, please contact the number above. For patients who have questions, please contact the health ostomy care nurse that requested your imaging first. 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
--- OUTSIDE RECORDS SUMMARY | 2024-08-18 17:57 | XMS_ITS | Encounter Summary ---
Author Organization [facility] Address [facility] [place] [address] Care Team Providers Care Pit Steward Name Role Phone OrenSanam herring MERARI Primary Care Provider Encounter Details Date Type Department Care Team (Latest Contact Info) Description 06/28/2023 8:22 AM EDT - 06/28/2023 11:59 PM EDT Hospital [place] [address] Mily Garcia MD [facility] [place] [address] 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 Discharge Disposition: [...] 09/17/2024 9:00 AM [place] [address] Mily Garcia MD [facility] [place] [address] 09/17/2024 9:45 AM EST Laboratory Appointment Lab [address] [place] [address] 09/17/2024 11:30 AM EST Office [place] [address] Mily Garcia MD [facility] [place] [address] documented as of this encounter Procedures Procedure [...] who have questions, please contact the health rn home care that requested your imaging first. ?Damian Almazan, Staff Physician Electronically Signed Final Report ?? 06/28/2023 09:20 am Narrative 06/28/2023 9:21 AM EDT Abdominal ? (Signed Final 06/28/2023 09:20 am) PATIENT INFO: ID #: ? [id number] ?: ??[birth year] (68 yrs)(F) Name: ? GENOVEVA Zaragoza ?Visit Date: 06/28/2023 09:00 am ? KISHA PERFORMED BY: Attending: ?Damian Almazan MD Performed By: ? Stefania Thomas RDMS Referred By: ?MILY GARCIA Location: ? [place] [facility] - [facility] Protocol - Abdominal ?42381 Limited Survey Single Organ or Quadrant - [id number] INDICATIONS: cirrhosis, HCC screening COMPARISON: US: Hepatology [...] 06/28/2023 09:20 am) PATIENT INFO: ID #: [id number] : 55 (68 yrs)(F) Name: GENOVEVA Zaragoza Visit Date: 06/28/2023 09:00 am KISHA PERFORMED BY: Attending: Damian Almazan MD Performed By: Stefania Thomas RDMS Referred By: MILY GARCIA Location: [place] [facility]) PROVIDED: [facility] - Hepatology Protocol - Abdominal 78770 Limited Survey Single Organ or Quadrant - [id number] INDICATIONS: cirrhosis, HCC screening COMPARISON: US: Hepatology [...] who have questions, please contact the health rn home care that requested your imaging first. Damian Almazan, Staff Physician Electronically Signed Final Report 06/28/2023 09:20 am Mily Garcia MD IMG US GEN ORDERABLE S documented in this encounter Visit Diagnoses Diagnosis 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 Other chronic nonalcoholic liver disease documented in this encounter Care Teams Pit Steward Relationship Specialty Start Date End Date Sanam Bennett APRN [address] [place] [address] PCP - General Family Medicine 09/06/22 documented as of this encounter
--- OUTSIDE RECORDS SUMMARY | 2024-08-18 17:57 | XMS_ITS | Encounter Summary ---
Author Organization [facility] Address [facility] [place] [address] Care Team Providers Care Lay Out Maker Name Role Phone Sanam Bennett APRN Primary Care Provider [phone] Reason for Visit * Reason Comments Skin Check * Consultation (Routine) - Closed Specialty Diagnoses / Procedures Referred By Gabrielle graves Referred To Contact Dermatology Diagnoses Hx of basal cell carcinoma Sanam Bennett APRN [address] [place] [address] [facility] Dermatology [address] [place] [address] Referral ID Status Reason Start Date Expiration Date V isits Requested Visits Authorized [id number] Closed Consult, Test & Treat PCP Updated and/or Approved 02/06/2023 02/06/2024 6 6 Encounter Details Date Type Department Care Team (Late st Contact Info) Description 05/02/2023 3:40 PM EDT Office Visit Dermatology at [facility] [address] [place] [address] Lino Rodriguez MD [facility] [address] [place] [address] Actinic keratoses; History of nonmelanoma [...] N Dysplastic nevi N SCC N BCC [id number] (pt reported) Right forehead, right tip of nose, left shoulder, right lateral eyebrow, previously treated in [place]. [id number] right medial cheek, July 2009, per [facility]. [...] 1 year for FSE []Note routed to company secretary []Recall placed in scheduling system []Appointment scheduled at checkout Scribe attestation: ОЛЕГ Masterson has performed the documentation for this encounter inthe presence of and acting as a scribe for Lino Rodriguez MD. I performed the above scribed service and agree with the accuracy of the documentation in this encounter. Reviewed and signed by: Lino Rodriguez MD Dermatology [facility] Patient seen and evaluated with staff television technician: Mikaela Freeman MD Department of Dermatology [facility] * Mikaela Freeman MD - [...] Mikaela Freeman MD ([place]), FAAD Staff Physician [facility] Dermatology documented in this encounter Miscellaneous Notes * Addendum Note - Mikaela Freeman MD - 05/02/2023 3:40 PM EDTAddended by: MIKAELA FREEMAN on: 05/03/2023 09:37 AM Modules accepted: Level of Service documented in this encounter Plan of Treatment Upcoming Encounters Date Type Department Care Team (Late st Contact Info) Description 09/17/2024 9:00 AM EST [place] [address] Mily Garcia MD [facility] [place] [address] 09/17/2024 9:45 AM EST Laboratory Appointment Lab [address] [place] [address] 09/17/2024 11:30 AM EST Office [place] [address] Mily Garcia MD [facility] [place] [address] documented as of this encounter Visit Diagnoses Diagnosis Actinic keratoses Actinic keratosis History of nonmelanoma skin cancer Personal history of other malignant neoplasm of skin Xerosis of skin Other specified disease of sebaceous glands Lip licking dermatitis Contact dermatitis and other eczema, due to unspecified cause documented in this encounter Care Teams Lay Out Maker Relationship Specialty Start Date End Date Sanam Bennett APRN [address] [place] [address] PCP - General Family Medicine 09/06/22 documented as of this encounter
--- OUTSIDE RECORDS SUMMARY | 2024-08-18 17:57 | XMS_ITS | Encounter Summary ---
Author Organization [facility] [place] [address] Care Team Providers Care Work Order Sorting Clerk Name Role Phone OrenSanam herring MERARI Primary Care Provider [phone] Encounter Details Date Type Department Care Team [...] 09/17/2024 9:00 AM EST Appointment [place] [address] Mily Garcia MD [facility] [place] [address] 09/17/2024 9:45 AM EST Laboratory Appointment Lab [address] [place] [phone] 09/17/2024 11:30 AM EST Office Visit [place] [address] Mily Garcia MD [facility] [place] [address] documented as of this encounter Visit Diagnoses Not on filedocumented in this encounter Care Teams Work Order Sorting Clerk Relationship Specialty Start Date End Date Sanam Bennett APRN [address] [place] [address] [address] [place] [address] PCP - General Family Medicine 09/06/22 documented as of this encounter
--- OUTSIDE RECORDS SUMMARY | 2024-08-18 17:57 | XMS_ITS | Encounter Summary ---
Author Organization [facility] [place] [address] Care Team Providers Care Green Plumber Name Role Phone Sanam Bennett MERARI Primary [...] 09/17/2024 9:00 AM EST Appointment [place] [address] Mily Garcia MD [facility] [place] [address] 09/17/2024 9:45 AM EST Laboratory Appointment Lab [address] [place] [address] 09/17/2024 11:30 AM EST Office [place] [address] Mily Garcia MD [facility] [place] [address] documented as of this encounter Visit Diagnoses Not on filedocumented in this encounter Care Teams Green Plumber Relationship Specialty Start Date End Date Sanam Bennett APRN [address] [place] [address] [address] [place] [address] PCP - General Family Medicine 09/06/22 documented as of this encounter
--- OUTSIDE RECORDS SUMMARY | 2024-08-18 17:57 | XMS_ITS | Encounter Summary ---
Author Organization [facility] [place] [address] Care Team Providers Care Credit Collections Clerk Name Role Phone Sanam Bennett APRN Primary Care Provider Encounter Details Date Type Department Care Team (Latest Contact Info) Description 02/07/2024 10:10 AM EDT Laboratory Appointment Lab [address] [place] [address]1000 Hepatic cirrhosis, unspecified hepatic cirrhosis type, unspecified [...] 09/17/2024 9:00 AM EST [place] [address]1000 Mily Garcia MD [facility] [place] [address] 09/17/2024 9:45 AM EST Laboratory Appointment Lab [address] [place] [address] 09/17/2024 11:30 AM EST Office [place] [phone] Mily Garcia MD [facility] [place] [address] documented as of this encounter Procedures Procedure Name Priority Date/Time Associated Diagnosis Comments HEMOGRAM Routine 02/07/2024 10:06 AM EDT Hepatic cirrhosis, unspecified hepatic cirrhosis type, unspecified whether ascites present Autoimmune hepatitis DIFFERENTIAL, AUTOMATED Routine 02/07/2024 10:06 AM EDT Hepatic cirrhosis, unspecified hepatic cirrhosis type, unspecified whether ascites present Autoimmune hepatitis TISSUE TRANSGLUTAMINASE, IGA Routine 02/07/2024 10:06 AM EDT Hepatic cirrhosis, unspecified hepatic cirrhosis type, unspecified whether ascites present Autoimmune hepatitis AFP TUMOR MARKER Routine 02/07/2024 10:0 6 AM EDT Hepatic cirrhosis, unspecified hepatic cirrhosis type, unspecified whether ascites present Autoimmune hepatitis PROTHROMBIN TIME Routine 02/07/2024 10:0 6 AM EDT Hepatic cirrhosis, unspecified hepatic cirrhosis type, unspecified whether ascites present Autoimmune hepatitis CBC (WITH DIFF) Routine 02/07/2024 10:06 AM EDT Hepatic cirrhosis, unspecified hepatic cirrhosis type, unspecified whether ascites present Autoimmune hepatitis COMPREHENSIVE METABOLIC PANEL Routine 02/07/2024 10:06 AM EDT Hepatic cirrhosis, unspecified hepatic cirrhosis type, unspecified whether ascites present Autoimmune hepatitis documented in this encounter Results * Differential, Automated (02/07/2024 10:06 AM EDT) Neutrophil % 47.1 % [facility] Neutrophil Absolute 2.92 1.70 - 6.10 x10(3)/[facility] Lymph % 38.0 % [facility] Lymphocytes Abs 2.4 0.9 - 3.2 x10(3)/[facility] Monocyte % 11.5 % [facility] Monocyte Abs 0.7 0.3 - 0.9 x10(3)/[facility] Eos % 2.1 % [facility] Eosinophils Abs 0.1 0.0 - 0.4 x10(3)/[facility] Basophil % 1.0 % [facility] Baso Absolute 0.1 0.0 - 0.1 x10(3)/[facility] Immature Gran % 0.30 % [facility] Comment: Immature granulocytes(IG's)percentage and absolute count will include metamyelocytes, myelocytes, and promyelocytes. Blood smears from CBCs yielding IG's will be scanned manually for concordance. If this scan disagrees with the automated IG or if promyelocytes are noted, a manual differential will be performed. Immature Gran Absolute 0.02 0.00 - 0.04 x10(3)/[facility] Blood 02/07/2024 10:0 6 AM EDT 02/07/2024 10:21 AM EDT Narrative Resulting Agency Comment Spec In Lab Mily Garcia MD HEMATOLOGY ORDERABLE S Performing Organization Address City/State/[facility] Co de Phone Number [facility] [place] [address] * Hemogram (02/07/2024 10:06 AM EDT) White Blood Cell 6.2 4.0 - 9.5 x10(3)/[facility] Red Blood Cell 4.73 4.00 - 5.21 x10(6)/[facility] Hemoglobin 13.4 11.7 - 15.5 g/dL [facility] Hematocrit 40.8 35.7 - 45.8 % [facility] Mean Cell Volume 86.3 82.6 - 94.4 fL [facility] Mean Cell Hemoglobin 28.3 27.1 - 32.0 pg [facility] Mean Cell Hemoglobin Concentration 32.8 31.7 - 35.0 g/dL [facility] Platelet 231 145 - 357 x10(3)/[facility] RDW Standard Deviation 41.5 37.0 - 46.0 fL [facility] RDW coefficient of variation 13.2 11.5 - 14.1 % [facility] Mean Platelet Volume 10.6 7.6 - 12.9 fL [facility] NRBC% auto 0.0 % [facility] NRBC Absolute 0.000 0.000 - 0.000 x10(3)/[facility] Blood 02/07/2024 10:0 6 AM EDT 02/07/2024 10:21 AM EDT Narrative Resulting Agency Comment Spec In Lab Mily Garcia MD HEMATOLOGY ORDERABLE S Performing Organization Address City/[facility]/ZIP Co de Phone Number [facility] [place] [address] * AFP tumor marker (02/07/2024 10:06 AM EDT) Alpha Fetoprotein 3.0 <=8.3 ng/mL [facility] Comment: This result was generated using a Radha Anshu immunoassay. ??Results obtained from other methods or manufacturers cannot be used interchangeably with this method. Blood 02/07/2024 10:0 6 AM EDT 02/07/2024 10:21 AM EDT Narrative Resulting Agency Comment Spec In Lab Mily Garcia MD CHEMISTRY ORDERABLES Performing Organization Address City/[facility]/ZIP Co de Phone Number [facility] [place] [address] * Tissue transglutaminase, IgA (02/07/2024 10:06 AM EDT) TTG IgA Ab <0.4 <=10.0 u/ml [facility] Comment: Negative: ??<7 units/mL Indeterminate: 7-10 units/mL Positive: ??>10 units/mL Blood 02/07/2024 10:0 6 AM EDT 02/10/2024 7:34 AM EDT Narrative Resulting Agency Comment Spec In Lab Mily Garcia MD IMMUNOLOGY ORDERABLE S [facility] [place] [address] * (ABNORMAL) Comprehensive metabolic panel (non-fasting) (02/07/2024 10:06 AM EDT) Pathologist [facility] Glucose 93 65 - 199 mg/dL [facility] Comment:Diabetes: >=200 mg/d L plus symptoms Blood Urea Nitrogen 17 8 - 18 mg/dL [facility] Creatinine 0.63(L) 0.70 - 1.20 mg/dL [facility] Sodium 141 135 - 145 mmol/L [facility] Potassium 4.4 3.5 - 5.0 mmol/L [facility] Comment: Please note: ??Patients with WBC >100,000 may have falsely elevated Potassium levels. ??For accurate Potassium quantification in these patients send serum separator tube (gold top) for subsequent determinations. ??Contact the Clinical Chemistry Laboratory if there are any questions. Chloride 104 98 - 107 mmol/L [facility] Carbon Dioxide 26 22 - 31 mmol/L [facility] Anion Gap 11 5 - 15 mmol/L [facility] Calcium 9.1 8.5 - 10.5 mg/dL [facility] Protein, Total 7.7 6.1 - 8.0 g/dL [facility] Albumin 4.4 3.2 - 5.2 g/dL [facility] Aspartate Aminotransferase 25 0 - 30 unit/L [facility] Alanine Aminotransferase 14 0 - 30 unit/L [facility] Alkaline Phosphatase 83 35 - 105 unit/L [facility] Bilirubin, Total 0.2 0.2 - 1.3 mg/dL [facility] Est Glomerular Filtration Rate 97 >=60 mL/min/1. 73 m?? [facility] [...] In Lab Mily Garcia MD CHEMISTRY ORDERABLES [facility] [place] [address] * Prothrombin Time (02/07/2024 10:06 AM EDT) Prothrombin Time 11.8 9.4 - 12.5 sec [facility] International Normalization Ratio 1.0 [facility] Comment: An INR <2.0 [...] Lab Mily Garcia MD HEMATOLOGY ORDERABLE S [facility] [place] [address] documented in this encounter Visit Diagnoses Diagnosis Hepatic cirrhosis, unspecified hepatic cirrhosis type, unspecified whether ascites present Autoimmune hepatitis documented in this encounter Care Teams Credit Collections Clerk Relationship Specialty Start Date End Date Sanam Bennett APRN [address] [place] [address] PCP - General Family Medicine 09/06/22 documented as of this encounter
--- OUTSIDE RECORDS SUMMARY | 2024-08-18 17:57 | XMS_ITS | Encounter Summary ---
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 Ddyk-ir-atoevaqm steatosis is present. Trichrome stain highlights advanced [...] Garcia MD Section of Gastroenterology & Hepatology [address] [place] [address] Time spent reviewing records prior to [...] 09/17/2024 9:00 AM [place] [address] Mily Garcia MD [facility] [place] [address] 09/17/2024 9:45 AM EST Laboratory Appointment Lab [address] [place] [address] 09/17/2024 11:30 AM EST Office [place] [address]-1000 Mily Garcia MD [facility] [place] [address] Scheduled Orders Name Type Priority Associated Diagnoses [...] disease documented in this encounter Care Teams Rose Grader Relationship Specialty Start Date End Date Sanam Bennett APRN [address] [place], [place] [address] [place] [address] PCP - General Family Medicine 09/06/22 documented as of this encounter
--- OUTSIDE RECORDS SUMMARY | 2024-08-18 17:57 | XMS_ITS | Continuity of Care Document ---
Author Organization [facility], [facility] [place] [address] Assessment No assessment recorded. Plan of Treatment Reminders Order Date Submit Date Provider Last Modified By Organization Details Last Modified Time Details Appointments Nurse Visit 20 2024 07:30A M [facility] Nursing Staff Not available Not available Not available Medicare Annual Wellness 40 2024 10:00A M ROMERO GOLDSMITH Not available Not available Not available Lab CBC 2023 025 [place] [address] 63 [facility] Laboratory (Registration ), [address] [place] [address] [place], [address], 06/29/2024 08:20:36 CMP, serum or plasma 2023 025 [facility]1 63 [facility] Laboratory (Registration ), [address] [place] [address] [place], [address], 06/29/2024 08:20:36 lipid panel, serum [address] Laboratory (Registration ), [address] [place] [address] [place], [address], 06/29/2024 08:20:36 Referral physical therapis t referral - left knee discomfo rt for several months. Possible medial meniscus patholog y 2023 024 [email or web address] Azael Mares PT, [address], [place], [address], 07/28/2024 10:24:55 Procedures None recorded . Surgeries None recorded . Imaging DEXA - osteopor osis on [address] [facility] (Radiology), [address] [facility] [place], [address], 07/09/2024 15:09:55 Medication Orders None recorded . Patient TargetsNo targets recorded. Patient Instructions Encounter Date Encounter Id Patient Instructions Last Modified By Organization Details Last Modified Time 06/29/2024 [id number] exercise [email or web address] Not available 08:20:36 Rosalinda - we will send up a bone density test, and refer to PT for your left knee. We will get fasting blood work just prior. [email or web address] Not available 06/29/2024 08:15:25 Reason for Referral Physical Therapist Referral for Pain of left knee joint left knee discomfort for several months. Possible medial meniscus pathology Referring Physician: Romero Goldsmith, Family Medicine, Encounter Date: 06/29/2024 Results Created Date Observation Date Name Description Value Unit Range Abnormal Flag Note LastModifiedBy Organization Detail LastModifiedTime 07/09/2007/09/2024 DEXA Patien t Name: Carr Unit #: [id number] Loc: DI Orderi ng Provid er: Fang Suarez Accoun t #: [id number] Status : REG CLI Primar [...] ia for BMD interp retati on classi sarah fang ts: Normal ...... T- Score at or above -1.0 Osteop enic.. . T- Score betwee n -1.0 and -2.5 Osteop orosis ... T-Scor e at or below -2.5 Ordere d By: Fang Suarez CC: ------ ------ ------ ------ ------ ------ ------ ------ ------ ------ ------ ------ - Dictat ed By: Kirk Sears M.D. 1141 114 Transc ribed By: Renu GO,Ambrocio serrano 114 This is privil eged, confid ential inform ation intend ed only for the provid er named. Any use or distri bution by any person other than this provid er is strict ly prohib ited. If you receiv e this report in error, please notify us immedi yaajiraly at [phone] and return the origin al report to us at the addres s above. Thank- you. [email or web address] [facility] (Radiology) [address] [place] [address] [place], [address], 07/29/2024 09:06:08 08/06/2008/06/2024 XR, knee, 3 view Patien t Name: Carr Unit #: [id number] Loc: DI Madelinei ng Provid er: Fang Suarez t #: [id number] Status : REG CLI Primar [...] body. SOFT TISSUE : Normal . IMPRES MARGAERT: No acute abnorm ality. DATA REPOSI TORY: RADIAT ION DOSE DELIVE RED: Ordere d By: Fang Suarez CC: ------ ------ ------ ------ ------ ------ ------ ------ ------ ------ ------ ------ - Dictat ed By: Gregory Roy M.D. 1548 154 Transc ribed By: Gregory Roy 154 This is privil eged, confid ential inform [...] the addres s above. Thank- you. edy [facility] (Radiology) [address] , [place], [address], 08/07/2024 12:19:42 Result Notes None recorded. Problems Name Problem SNOMED Code Status Onset Date Resolution Date Notes Provider Name and Address Organization Details Recorded Time Celiac disease 412484639 Active 2023 FLOR BARNETT, [facility]. 4 13:27:12 Depressi ve disorder 82440060 Active 2023 FLOR BARNETT, [facility] 4 13:27:39 Fibromya lgia 298756780 Active 2023 FLOR BARNETT, [facility] 4 13:36:01 Gastroes ophageal reflux disease 987093639 Active 2023 FLOR BARNETT, [facility] 4 13:29:32 Hyperlip idemia 18281666 Active 2023 FLOR BARNETT, [facility]. 4 13:29:51 Migraine 71698126 Active 2011 FLOR BARNETT, [facility]. 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 4 13:31:11 Colonosc opy normal 922677666 Completed 201811/18/2023 Removal Reason: Due in 2028 FLOR BARNETT, [facility]. 4 13:32:37 Obstruct armand sleep apnea syndrome 38374065 Active [address], [place], [address] [place] [address]. 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 Followed by [facility]. Due for egd 2023. No varices on 2021 egd. Liver biopsy 2021. [address], [place], [address], [facility] 18:00:16 Chronic back pain 657121323 Active [address], [place], [address], [facility] 18:00:13 Osteopor osis 76616501 Active 2023 only on forearm 2020 Dexa, on forearm and hip on [address], [place], [address], [facility] 16:24:13 Insomnia 435403280 Active [address], [place], [address], [facility] 18:13:20 Restless legs 01372614 Active [address], [place], [address], [facility] 18:13:26 Problem Notes None recorded. Procedures Surgical History Date Name Laterality Status Provider Name and Address Organization Details Recorded Time 2022 Most Recent Mammogram completed YAEL BRASWELL RN [facility] 4 10:47:44 2022 Date of Last Colonoscopy completed YAEL BRASWELL RN [facility] 4 10:48:07 2015 extraction of cataract completed BISI FLYNN MA [facility] 4 13:41:13 2012 esophagogastroduodenoscopy completed BIRDIE FLYNN MA [facility] 4 13:40:43 2005 abdominal hysterectomy completed [address], [place], [address] , [facility] 4 18:02:29 2005 oophorectomy completed BISI FLYNN MA [facility] 4 13:44:10 2004 re-release of carpal tunnel completed ZEKE FLYNN MA [facility] 4 13:44:53 2003 total knee replacement completed [address], [place], [address] , [facility] 4 18:02:57 2002 excision of cervical intervertebral disc completed [address], [place], [address] , [facility] 4 18:03:31 2001 ligation of fallopian tube completed BIRDIE FLYNN MA [facility] 4 13:41:31 2000 Shoulder joint surgery completed [address], [place], [address], [facility] 4 18:04:19 1998 cholecystectomy completed [address], [place], [address], [facility] 4 18:03:57 1996 re-release of carpal tunnel completed ZEKE FLYNN MA [facility] 4 13:45:33 Imaging Results None recorded. Procedure Notes None recorded. Medical Equipment None Reported. Allergies Allergen ID Allergen Name Allergen Category Reaction Reaction Severity Criticality Documentation Date Start Date Code Code System Note Provider Name and Address Organization Details Recorded Time 33151 lisinopri l medicatio n cough moderate Not available 11/18/20232018 65015 RxNorm BISI FLYNN MA [facility], [facility] 4 13:18:05 99842 morphine medicatio n Not available Not available Not available 11/18/20232018 7052 RxNorm visua l distu rbanc e YAEL BRASWELL RN [facility], [facility] 4 10:58:17 30049 gabapenti n medicatio n Not available Not available Not available 11/18/20232018 19703 RxNorm night christian YAEL BRASWELL RN [facility], [facility] 4 10:58:01 Medications Name Sig Start Date [...] Available Vitals Date Recorded Body weight Body mass index (BMI) Body height Body temperature Respiratory rate Oxygen saturation Oxygen saturation in Arterial blood by Pulse oximetry Heart rate Systolic blood pressure Diastolic blood pressure Provider Name and Address Organization Details Last Updated DateTime 4 94061.9 6 g 35.1 kg/m2 156.21 cm 98.6 [degF] 14 /min 99 % 99 % 94 /min 122 mm[Hg] 70 mm[Hg] MEAGAN MOBLEY RN [facility] 07:59:56 Social History Question Answer Notes LastModified by Organizat ion Details LastModified Time Tobacco Smoking Status Never Smoker YAEL BRASWELL RN [facility], [facility] 11/27/2023 10:36:49 Do You Have An Advance [...] cancelled ROMERO GOLDSMITH PA-C [address], [facility] [address] [place] [address] 06/29/2024 08:56:35 Influenza, high-dose, trivalent, PF 06/29/2024 cancelled ROMERO GOLDSMITH PA-C [address], [facility] [address] [place] [address] 06/29/2024 08:56:35 SARS-COV-2 (COVID-19) vaccine, UNSPECIFIED 12/13/2020 completed MEAGAN MOBLEY RN null, [facility] 01/29/2024 14:24:52 SARS-COV-2 (COVID-19) vaccine, UNSPECIFIED 01/10/2021 completed MEAGAN MOBLEY RN null, [facility] 01/29/2024 14:25:00 SARS-COV-2 (COVID-19) vaccine, UNSPECIFIED 08/29/2021 completed MEAGAN MOBLEY RN null, [facility] 01/29/2024 14:25:06 COVID-19, mRNA, LNP-S, bivalent, PF, 50 mcg/0.5 mL or 25mcg/0.25 mL dose 10/19/2022 completed MEAGAN MOBLEY RN null, [facility] 01/29/2024 14:25:58 Pneumococcal conjugate PCV20, polysaccharide OBN466 conjugate, adjuvant, PF 05/22/2022 completed MEAGAN MOBLEY RN null, [facility] 01/29/2024 14:26:52 pneumococcal, unspecified formulation 02/10/2021 completed MEAGAN MOBLEY RN null, [facility] 01/29/2024 14:27:34 Td, adsorbed, preservative free, adult use, Lf unspecified 12/30/2009 completed MEAGAN MOBLEY RN null, [facility] 01/29/2024 14:27:56 Td, adsorbed, preservative free, adult use, Lf unspecified 02/10/2021 completed RAÚL BERNAL, [facility] 01/29/2024 14:28:09 influenza, unspecified formulation 07/05/2010 completed RAÚL BERNAL, [facility] 01/29/2024 14:28:33 Past Encounters Encounter ID Performer Location Encounter Start Date Encounter Closed Date Diagnosis/Indication Diagnosis SNOMED-CT Code Diagnosis ICD10 Code [id number] ROMERO GOLDSMITH PA-C [address] [place] [address] 06/29/2024 07:46:56 06/29/2024 08:17:53 Active or passive immunization 729328989 Z23 Obesity 950027385 E66.9 Hyperlipidemia 81264697 E78.5 Gastroesop hageal reflux disease 128608406 K21.9 Osteoporosis 42093830 M8 1.0 Pain of le ft knee joint 4930167640 46439 M25.562 Health Concerns Section Related Observation LastModified by Organization Detai ls LastModified Time None Recorded Concern Status LastModified by Organization Details LastModified Time None Recorded Payers Encounter Date Sequence Insurance Name Policy Number Policy Desouza Covered Member ID Desouza Member ID Guarantor Name 06/29/2024 2 [employer] - FOR LIFE (MEDICARE SUPPLEMENT) Genoveva Peña [id number] Genoveva Peña 06/29/2024 1 [facility] (MEDICARE REPLACEMENT/A DVANTAGE - PPO) [id number] Genoveva Peña [id number] Genoveva Peña Notes Date Note Type Note Provider Name and Address Organization Details Recorded Time 06/29/2024 text/html Rosalinda is here f or [...] her home and garage. [address], [place], [address], [facility]. 06/29/2024 09:02:32 OBGyn Episode No OBEpisode recorded.
--- OUTSIDE RECORDS SUMMARY | 2024-08-18 17:57 | XMS_ITS | Encounter Summary ---
Author Organization [facility] [place] [address] Care Team Providers Care Coin Wrapping Machine Operator Name Role Phone Sanam Bennett MERARI [...] 09/17/2024 9:00 AM [place] [address] Mily Garcia MD [facility] [place] [address] 09/17/2024 9:45 AM EST Laboratory Appointment Lab [address] [place] [address] 09/17/2024 11:30 AM EST Office [place] [address] Mily Garcia MD [facility] [place] [address] documented as of this encounter Visit Diagnoses Not on filedocumented in this encounter Care Teams Coin Wrapping Machine Operator Relationship Specialty Start Date End Date Sanam Bennett APRN [address] [place] [address] [address] [place] [address] PCP - General Family Medicine 09/06/22 documented as of this encounter
--- OUTSIDE RECORDS SUMMARY | 2024-08-18 17:57 | XMS_ITS | Encounter Summary ---
Author Organization [facility] Address [facility] [place] [address] Care Team Providers Care Soda Flaker Name Role Phone OrenSanam herring MERARI Primary Care Provider Encounter Details Date Type Department Care Team (Latest Contact Info) Description 02/07/2024 7:37 AM EDT - 02/07/2024 11:59 PM EDT Hospital [place] [address] Mily Garcia MD [facility] [place] [address] Hepatic cirrhosis, unspecified hepatic cirrhosis type, unspecified [...] 09/17/2024 9:00 AM [place] [address] Mily Garcia MD [facility] [place] [address] 09/17/2024 9:45 AM EST Laboratory Appointment Lab [address] [place] [address] 09/17/2024 11:30 AM EST Office [place] [address] Mily Garcia MD [facility] [place] [address] documented as of this encounter Procedures Procedure Name Priority Date/Time Associated Diagnosis Comments US ABDOMEN LIMITED HEPATOLOGY PROTOCOL Routine 02/07/2024 9:16 AM EDT Hepatic cirrhosis, unspecified hepatic cirrhosis type, unspecified whether ascites present Autoimmune hepatitis documented in this encounter Results * US Abdomen Limited Hepatology Protocol (02/07/2024 9:16 AM EDT) WORKSTATION ID [id number] DH RAD Anatomical Region Laterality Modality Abdomen [...] questions, please contact the health respiratory care technician that requested your imaging first. ?Que Tee, Staff Physician Electronically Signed Final Report ?? 02/07/2024 09:42 am Narrative 02/07/2024 9:42 AM EDT Abdominal ? (Signed Final 02/07/2024 09:42 am) PATIENT INFO: ID #: ? [id number] ?: ??[birth year] (68 yrs)(F) Name: ? GENOVEVA A ?Visit Date: 02/07/2024 09:16 am ? CASEY PERFORMED BY: Attending: ?Randal GO, Que Mathis Resident: ? Bobby Gotti MD Performed By: ? Cecy Krueger RDMS Referred By: ?MILY GARCIA Location: ? [place] [facility] Protocol - Abdominal ?57775 Limited Survey Single Organ or Quadrant - [id number] INDICATIONS: cirrhosis, HCC screening TECHNIQUE/SCAN QUALITY: Scan [...] 02/07/2024 09:42 am) PATIENT INFO: ID #: [id number] : 55 (68 yrs)(F) Name: GENOVEVA Zaragoza Visit Date: 02/07/2024 09:16 am CASEY PERFORMED BY: Attending: Que Tee MD Resident: Bobby Gotti MD Performed By: Cecy Krueger RDMS Referred By: MILY GARCIA Location: [place] SERVICE(S) PROVIDED: [facility] - Hepatology Protocol - Abdominal 84819 Limited Survey Single Organ or Quadrant - [id number] INDICATIONS: cirrhosis, HCC screening TECHNIQUE/SCAN QUALITY: Scan [...] questions, please contact the health respiratory care technician that requested your imaging first. Que Tee, Staff Physician Electronically Signed Final Report 02/07/2024 09:42 am Mily Garcia MD IMG US GEN ORDERABLE S documented in this encounter Visit Diagnoses Diagnosis Hepatic cirrhosis, unspecified hepatic cirrhosis type, unspecified whether ascites present Autoimmune hepatitis documented in this encounter Care Teams Soda Flaker Relationship Specialty Start Date End Date Sanam Bennett APRN [address] [place] [address] PCP - General Family Medicine 09/06/22 documented as of this encounter
--- OUTSIDE RECORDS SUMMARY | 2024-08-18 17:57 | XMS_ITS | Encounter Summary ---
Author Organization [facility] [place] [address] Care Team Providers Care Auto Appraiser Name Role Phone Sanam Bennett MERARI Primary [...] 09/17/2024 9:00 AM EST Appointment [place] [address] Mily Garcia MD [facility] [place] [address] 09/17/2024 9:45 AM EST Laboratory Appointment Lab [address] [place] [address] 09/17/2024 11:30 AM EST Office Visit [place] [address] Mily Garcia MD [facility] [place] [address] documented as of this encounter Visit Diagnoses Not on filedocumented in this encounter Care Teams Auto Appraiser Relationship Specialty Start Date End Date Sanam Bennett APRN [address] [place] [address] [address] [place] [address] PCP - General Family Medicine 09/06/22 documented as of this encounter
--- OUTSIDE RECORDS SUMMARY | 2024-08-18 17:57 | XMS_ITS | Encounter Summary ---
Author Organization [facility] Address [facility] [place] [address] Care Team Providers Care Agricultural Appraiser Name Role Phone Sanam Bennett APRN Primary Care Provider Reason for Visit * Reason Onset Date Comments Medication Refill 09/03/2023 Encounter Details Date Type Department Care Team (Late st Contact Info) Description 09/03/2023 [place]ill [place] [phone] Mily Garcia MD [facility] [place] [address] Autoimmune hepatitis Social History Tobacco Use Types [...] 09/17/2024 9:00 AM EST [place] [address] Mily Garcia MD [facility] [address] 09/17/2024 9:45 AM EST Laboratory Appointment Lab [address] [place] [address] 09/17/2024 11:30 AM EST Office [place] [address] Mily Garcia MD [facility] [place] [address] documented as of this encounter Visit Diagnoses Diagnosis Autoimmune hepatitis documented in this encounter Care Teams Agricultural Appraiser Relationship Specialty Start Date End Date Sanam Bennett APRN [address] [place] [address] PCP - General Family Medicine 09/06/22 documented as of this encounter
--- OUTSIDE RECORDS SUMMARY | 2024-08-18 17:58 | XMS_ITS | Encounter Summary ---
Author Organization [facility] [place] [address] Care Team Providers Care Organ Pipe Voicer Name Role Phone Sanam Bennett APRN Primary Care Provider Encounter Details Date Type Department Care Team (Late st Contact Info) Description 11/05/2022 External [place] [phone] Analy [place], RAÚL Social History Tobacco Use [...] 09/17/2024 9:00 AM [place] [phone] Mily Garcia MD [facility] [place] [address] 09/17/2024 9:45 AM EST Laboratory Appointment Lab [facility] [place] [address] 09/17/2024 11:30 AM EST Office [place] [address] Mily Garcia MD [facility] [place] [address] documented as of this encounter Procedures Procedure Name Priority Date/Time Associated Diagnosis Comments EXTERNAL LAB CBC CMP THYROID RESULTS PANEL Routine 11/05/2022 documented in this encounter Results * CBC / CMP / Thyroid External Results (11/05/2022) White Blood Cell 12.42 [facility] Red Blood Cell 5.34 [facility] Hemoglobin 15.4 [facility]ILITY Hematocrit 46.8 [facility] Mean Cell Volume 88.0 [facility] Platelet 194 [facility] Sodium 136 [facility] Potassium 4.0 [facility] Chloride 100 [facility] Carbon Dioxide 29 [facility] Blood Urea Nitrogen 13 [facility] Creatinine 0.9 [facility] Est Glomerular Filtration Rate 70 [facility] Glucose 122 [facility] Calcium 8.7 [facility]ILITY Protein, Total 8.3 [facility] Albumin 3.8 [facility]ILITY Bilirubin, Total 0.5 [facility] Alkaline Phosphatase 111 [facility] Aspartate Aminotransferase 35 [facility] Alanine Aminotransferase 61 [facility]ILITY 11/05/2022 Historical Provider EXTERNAL LAB [facility] documented in this encounter Visit Diagnoses Not on filedocumented in this encounter Care Teams Organ Pipe Voicer Relationship Specialty Start Date End Date Sanam Bennett EMRARI [address] [place] [address] PCP - General Family Medicine 09/06/22 documented as of this encounter
--- OUTSIDE RECORDS SUMMARY | 2024-08-18 17:58 | XMS_ITS | Encounter Summary ---
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 Rebeca Yoon APRN [facility] [place] [address] [facility] [place] [address] Referral ID Status Reason Start Date Expiration Date V isits Requested Visits Authorized [id number] Closed Continuity of Care 12/25/2022 12/25/2023 1 1 Encounter Details Date Type Department Care Team (Late st Contact Info) Description 01/01/2023 2:00 PM EDT TH Visit (TeleHealth) [place] [address] [facility] [place] [address] Autoimmune hepatitis; 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 Please reach outwith a Quixhop message if you have any questions or concerns. -Try MyFitnessPal to help track protein and calories. Aim for 100-120 grams protein per day and 0849-2152 calories per day -Have a protein at [...] for 100-120 grams protein per day and 4745-8371 calories per day -Have a protein at [...] 09/17/2024 9:00 AM EST App[place] [address] Mily Garcia MD [facility] [place] [address] 09/17/2024 9:45 AM EST Laboratory Appointment Lab [address] [place] [address] 09/17/2024 11:30 AM EST Office [place] [address] Mily Garcia MD [facility] [place] [address] Scheduled Referrals Name Type Priority Associated Diagnoses Orde r Schedule Referral to Nutrition Services Outpatient Referral Routine Autoimmune hepatitis 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
--- OUTSIDE RECORDS SUMMARY | 2024-08-18 17:58 | XMS_ITS | Encounter Summary ---
Author Organization [facility] Address [facility] [place] [address] Care Team Providers Care Riprap Placing Supervisor Name Role Phone Alireza Ojeda DO Primary Care Provider [phone] Encounter Details Date Type Department Care Team (Latest Contact Info) Description 07/10/2013 9:07 AM EDT - 07/10/2013 11:59 PM EDT Hospital Encounter [place] [address] CLINIC, Michael Kamara MD [facility] DR [place] [address] GERD (gastroesophageal reflux disease) Discharge Disposition: Home [...] 09/17/2024 9:00 AM EST [place] [address] Mily Garcia MD [facility] [place] [address] 09/17/2024 9:45 AM EST Laboratory Appointment Lab [address] [place] [phone] 09/17/2024 11:30 AM EST Office [place] [address] Mily Garcia MD [facility] [place] [address] documented as of this encounter Procedures Procedure [...] reflux documented in this encounter Care Teams Riprap Placing Supervisor Relationship Specialty Start Date End Date Alireza Ojeda DO [address] [place] [address] PCP - General 07/16/11 09/05/22 documented as of this encounter
--- OUTSIDE RECORDS SUMMARY | 2024-08-18 17:58 | XMS_ITS | Encounter Summary ---
Author Organization [facility] [place] [address] Care Team Providers Care Box Printer Name Role Phone Sanam Bennett APRN Primary Care Provider [phone] Reason for Referral * Consultation (Routine) - Closed Specialty Diagnoses / Procedures Referred By Gabrielle graves Referred To Contact Dermatology Diagnoses Hx of basal cell carcinoma Sanam Bennett APRN [address] [place] [address] [facility] Dermatology [address] [place] [address] Referral ID Status Reason Start Date Expiration Date V isits Requested Visits Authorized [id number] Closed Consult, Test & Treat PCP Updated and/or Approved 02/06/2023 02/06/2024 6 6 Encounter Details Date Type Department Care Team (Late st Contact Info) Description 02/06/2023 Transcribe Orders eDH Incoming Referrals [phone] Sanam Bennett APRN [address] [place], [place] [address] Hx of basal cell carcinoma Social History [...] 09/17/2024 9:00 AM EST Appointment [place] [address] Mily Garcia MD [facility] [place] [address] 09/17/2024 9:45 AM EST Laboratory Appointment Lab [address] [place] [phone] 09/17/2024 11:30 AM EST Office Visit [place] [address] Mily Garcia MD [facility] [place] [address] Scheduled Referrals Name Type Priority Associated Diagnoses Order Schedule Referral to Dermatology Outpatient Referral Routine Hx of basal cell carcinoma Ordered: 02/06/2023 documented as of this encounter Visit Diagnoses Diagnosis Hx of basal cell carcinoma Personal history of other malignant neoplasm of skin documented in this encounter Care Teams Box Printer Relationship Specialty Start Date End Date Sanam Bennett APRN [address] [place] [address] [address] [place] [address] PCP - General Family Medicine 09/06/22 documented as of this encounter
--- OUTSIDE RECORDS SUMMARY | 2024-08-18 17:58 | XMS_ITS | Encounter Summary ---
Author Organization [facility] Address [facility] [place] [address] Care Team Providers Care Cut Off Sawyer Log Name Role Phone Sanam Bennett APRN Primary Care Provider [phone] Encounter Details Date Type Department Care Team (Late st Contact Info) Description 10/23/2022 External Results [place] [phone] Mily Garcia MD [facility] [place] [address] Social History Tobacco Use Types Packs/Day Years [...] 09/17/2024 9:00 AM EST Appointment [place] [phone] Mily Garcia MD [facility] [place] [address] 09/17/2024 9:45 AM EST Laboratory Appointment Lab [address] [place] [phone] 09/17/2024 11:30 AM EST Office Visit [place] [phone] Mily Garcia MD [facility] [place] [address] documented as of this encounter Procedures Procedure Name Priority Date/Time Associated Diagnosis Comments EXTERNAL LAB CBC CMP THYROID RESULTS PANEL Routine 10/22/2022 documented in this encounter Results * CBC / CMP / Thyroid External Results (10/22/2022) White Blood Cell 13.23 Red Blood Cell 5.12 Hemoglobin 14.7 Hematocrit 43.8 Mean Cell Volume 86.0 Platelet 296 Sodium 135 Potassium 4.1 Chloride 98 Carbon Dioxide 31 Blood Urea Nitrogen 17 Creatinine 1.0 Est Glomerular Filtration Rate 61.75 Glucose 145 Calcium 9.0 Protein, Total 9.1 Albumin 3.9 Bilirubin, Total 0.6 Alkaline Phosphatase 106 Aspartate Aminotransferase 45 Alanine Aminotransferase 87 Historical Provider EXTERNAL LAB RICCI MAJANO documented in this encounter Visit Diagnoses Not on filedocumented in this encounter Care Teams Cut Off Sawyer Log Relationship Specialty Start Date End Date Sanam Bennett APRN [facility] [address] [place] [address] PCP - General Family Medicine 09/06/22 documented as of this encounter
--- OUTSIDE RECORDS SUMMARY | 2024-08-18 17:58 | XMS_ITS | Encounter Summary ---
Author Organization [facility] Address [facility] [place] [address] Care Team Providers Care Engineering Executive Name Role Phone Alireza Ojeda DO Primary Care Provider Reason for Visit * Consultation (Routine) - Closed Specialty Diagnoses / Procedures Referred By Gabrielle graves Referred To Contact Gastroenterology Diagnoses DOHERTY (nonalcoholic steatohepatitis) Fatty liver, DOHERTY, Eval for MRCP vs/ ERCP Genoveva Maher MD [address] [place] [address] [facility] [address] [place] [address] Referral ID Status Reason Start Date Expiration Date V isits Requested Visits Authorized [id number] Closed Consult, Test & Treat 06/27/2022 06/27/2023 1 1 Encounter Details Date Type Department Care Team (Late st Contact Info) Description 08/27/2022 12:00 PM EST Office [place] [address] Mily Garcia MD [facility] [place] [address] Elevated liver enzymes; DOHERTY (nonalcoholic [...] PM EST HEPATOLOGY CONSULTATION Genoveva Almonteith 1955 PAYROLL AUDITOR: Mily Garcia MD ([id number]) PCP: Alireza Ojeda DO Requesting Provider: Genoveva Maher MD [address] [place] [address] REASON FOR CONSULTATION Fatty liver and dilated [...] pain Resp: no cough, no SOB, no MOLINA or orthopnea Hem/Lymph: no new lumps or [...] ultrasound. Mily Garcia MD Hepatology and Gastroenterology [facility] [address] [place] V: [phone] Copy: Alireza Ojeda DO [address] / [facility] [address] documented in this encounter Procedure Notes * Mily Garcia MD - 08/27/2022 12:00 PM ESTAssociated Order(s): FIBROSCAN Procedure(s): FIBROSCAN Pre-Procedure Diagnose(s): Elevated liver enzymes; DOHERTY (nonalcoholic steatohepatitis) [facility] Liver Fibrosis Assessment Report Indication: DOHERTY Performed by: Mily Garcia MD Procedure: Vibration Controlled Transient Elastography (VCTE) or Fibroscan Florence Protocol: Patient's identity, procedure and site were [...] 09/17/2024 9:00 AM [place] [address] Mily Garcia MD [facility] [place] [address] 09/17/2024 9:45 AM EST Laboratory Appointment Lab [address] [place] [phone] 09/17/2024 11:30 AM EST Office [place] [address] Mily Garcia MD [facility] [place] [address] Scheduled Orders Name Type Priority Associated Diagnoses [...] enzymes DOHERTY (nonalcoholic steatohepatitis) COMPREHENSIVE METABOLIC PANEL Routine 08/27/2022 1:37 PM EST Elevated liver enzymes DOHERTY (nonalcoholic steatohepatitis) [id number] Routine 08/27/2022 12:00 PM EST Elevated liver enzymes DOHERTY (nonalcoholic steatohepatitis) documented in this encounter Results * (ABNORMAL) Smooth Muscle Ab Titer (08/27/2022 1:37 PM EST) Pathologist [facility] Smooth Muscle Ab Titer (JANUARY) Positive 1:80(A) Negative [facility] Comment: ADDITIONAL INFORMATION This test was developed and its performance characteristics determined by [facility] in a manner consistent with CLIA requirements. This test has not been cleared or approved by the U.S. Food and Drug Administration. Test Performed by: [facility] [address] [place] [address] Health Safety Engineer: Yusef Self M.D. Ph.D.; CLIA# [id number] Blood 08/27/2022 1:37 PM EST 08/27/2022 1:45 PM EST Mily Garcia MD LAB SEND OUT ORDERAB LES [facility] [place] [id number] * Scan, Peripheral Blood (08/27/2022 1:37 PM EST) Pathologist [facility] Plat estimate Normal [facility] RBC Morphology Normal [facility] Blood 08/27/2022 1:37 PM EST 08/27/2022 1:45 PM EST Narrative Resulting Agency Comment Spec In Lab Mily Garcia MD HEMATOLOGY ORDERABLE S Performing Organization Address City/[facility] Co de Phone Number [facility] [place] [address] * Differential, Automated (08/27/2022 1:37 PM EST) [facility] Neutrophil % 51.3 % [facility] Neutrophil Absolute 4.05 1.70 - 6.10 x10(3)/[facility] Lymph % 38.6 % [facility] Lymphocytes Abs 3.0 0.9 - 3.2 x10(3)/[facility] Monocyte % 8.7 % [facility] Monocyte Abs 0.7 0.3 - 0.9 x10(3)/[facility] Eos % 0.0 % [facility] Eosinophils Abs 0.0 0.0 - 0.4 x10(3)/[facility] Basophil % 1.1 % [facility] Baso Absolute 0.1 0.0 - 0.1 x10(3)/[facility] Immature Gran % 0.30 % [facility] Comment: Immature granulocytes(IG's)percentage and absolute count will include metamyelocytes, myelocytes, and promyelocytes. Blood smears from CBCs yielding IG's will be scanned manually for concordance. If this scan disagrees with the automated IG or if promyelocytes are noted, a manual differential will be performed. Immature Gran Absolute 0.02 0.00 - 0.04 x10(3)/[facility] Blood 08/27/2022 1:37 PM EST 08/27/2022 1:45 PM EST Narrative Resulting Agency Comment Spec In Lab Mily Garcia MD HEMATOLOGY ORDERABLE S [facility] [place] [address] * Hemogram (08/27/2022 1:37 PM EST) White Blood Cell 7.9 4.0 - 9.5 x10(3)/[facility] Red Blood Cell 4.55 4.00 - 5.21 x10(6)/[facility] Hemoglobin 12.9 11.7 - 15.5 g/dL [facility] Hematocrit 38.8 35.7 - 45.8 % [facility] Mean Cell Volume 85.3 82.6 - 94.4 fL [facility] Mean Cell Hemoglobin 28.4 27.1 - 32.0 pg [facility] Mean Cell Hemoglobin Concentration 33.2 31.7 - 35.0 g/dL [facility] Platelet 230 145 - 357 x10(3)/[facility] RDW Standard Deviation 42.5 37.0 - 46.0 fL [facility] RDW coefficient of variation 13.5 11.5 - 14.1 % [facility] Mean Platelet Volume 9.9 7.6 - 12.9 fL [facility] NRBC% auto 0.0 % [facility] NRBC Absolute 0.000 0.000 - 0.000 x10(3)/[facility] Blood 08/27/2022 1:37 PM EST 08/27/2022 1:45 PM EST Narrative Resulting Agency Comment Spec In Lab Mily Garcia MD HEMATOLOGY ORDERABLE S Performing Organization Address [facility] Co de Phone Number [facility] [place] [address] * Ceruloplasmin (08/27/2022 1:37 PM EST) Ceruloplasmin 27.7 16.0 - 45.0 mg/dL [facility] Blood 08/27/2022 1:37 PM EST 08/27/2022 1:45 PM EST Narrative Resulting Agency Comment Spec In Lab Mily Garcia MD CHEMISTRY ORDERABLES Performing Organization Address [facility] Co de Phone Number [facility] [place] [address] * A1AT Serum Concentration (08/27/2022 1:37 PM EST) A1AT 157 90 - 200 mg/dL [facility] Blood 08/27/2022 1:37 PM EST 08/27/2022 1:45 PM EST Narrative Resulting Agency Comment Spec In Lab Mily Garcia MD CHEMISTRY ORDERABLES Performing Organization Address [facility] Co de Phone Number [facility] [place] [address] * (ABNORMAL) Ferritin (08/27/2022 1:37 PM EST) Ferritin 544(H) 30 - 400 ng/mL [facility] Comment: Pediatric reference ranges not verified at [facility], interpret with caution. Reference ranges for females greater than 50 years of age approach values for men, i.e., 30-400 ng/mL. Blood 08/27/2022 1:37 PM EST 08/27/2022 1:45 PM EST Narrative Resulting Agency Comment Spec In Lab Mily Garcia MD CHEMISTRY ORDERABLES Performing Organization Address City/[facility]/ZIP Co de Phone Number [facility] [place] [address] * Iron and TIBC (08/27/2022 1:37 PM EST) Pathologist [facility] Iron 107 30 - 150 mcg/dL [facility] TIBC 288 250 - 450 mcg/dL [facility] Iron Saturation 37 20 - 50 % [facility] Blood 08/27/2022 1:37 PM EST 08/27/2022 1:45 PM EST Narrative Resulting Agency Comment Spec In Lab Mily Garcia MD CHEMISTRY ORDERABLES Performing Organization Address [facility] Co de Phone Number [facility] [place] [address] * (ABNORMAL) IgG (08/27/2022 1:37 PM EST) [facility] Immunoglobulin G 2,857(H) 700 - 1,600 mg/dL [facility] Comment: Pediatric Reference Intervals obtained from the [employer] Reference Interval project. http://www.[employer]ld[employer].ca/caliperproject/index.html Blood 08/27/2022 1:37 PM EST 08/27/2022 1:45 PM EST Narrative Resulting Agency Comment Spec In Lab Mily Garcia MD CHEMISTRY ORDERABLES Performing Organization Address [facility] Co de Phone Number [facility] [place] [address] * (ABNORMAL) Mitochondrial Antibody, M2 (08/27/2022 1:37 PM EST) Pathologist [facility] Mitochon Ab (MAY) 0.1(H) <0.1 (Negative) U [facility] Comment: Interpretation: Borderline (0.1-0.3) Test Performed by: [address] [address] Health Safety Engineer: Yusef Self M.D. Ph.D.; CLIA# [id number] Blood 08/27/2022 1:37 PM EST 08/27/2022 2:23 PM EST Narrative Resulting Agency Comment Spec In Lab Mily Garcia MD LAB SEND OUT ORDERAB LES Performing Organization Address [facility] Co de Phone Number [facility] [place] [address] * (ABNORMAL) Smooth Muscle Antibody (08/27/2022 1:37 PM EST) Sm Muscle Ab (JANUARY) Positive( A) Negative [facility] Comment: Positive: Reflex to titer will be performed ADDITIONAL INFORMATION This test was developed and its performance characteristics determined by [facility] in a manner consistent with CLIA requirements. This test has not been cleared or approved by the U.S. Food and Drug Administration. Test Performed by: [facility] [place] [address] Health Safety Engineer: Yusef Self M.D. Ph.D.; CLIA# [id number] Blood 08/27/2022 1:37 PM EST 08/27/2022 2:23 PM EST Narrative Resulting Agency Comment Spec In Lab Mily Garcia MD LAB SEND OUT ORDERAB LES Performing Organization Address [facility] Co de Phone Number [facility] [place] [address] * FLO Antibody Screen (08/27/2022 1:37 PM EST) FLO Ab Screen Negative Negative [facility] Comment: This antinuclear antibody (FLO) screen is a qualitative test performed using a fluoroenzyme immunoassay on the [employer] Data 250 analyzer. This screen is designed to [...] performed by the Special Chemistry Laboratory at [facility]. This change in testing location is associated with a change is testing method and reference intervals. Please review the results of this test in association with the posted reference intervals. dsDNA Ab 4.2 <=15.0 IU/mL [facility] Comment: <10 negative 10-15 equivocal >15 positive This dsDNA antibody result was generated using a fluoroenzyme immunoassay on the [employer] Data 250 analyzer. This quantitative test is designed to detect IgG antibodies directed against double stranded DNA in human serum. The presence of antibodies that recognize dsDNA is a highly specific marker for systemic lupus erythematosus. Please note that as of 07/24/2022 that this testing is performed by the Special Chemistry Laboratory at [facility]. This change in testing location is associated with a change is testing method and reference intervals. Please review the results of this test in association with the posted reference intervals. Blood 08/27/2022 1:37 PM EST 08/28/2022 7:26 AM EST Narrative Resulting Agency Comment Spec In Lab Mily Garcia MD LAB SEND OUT ORDERAB LES [facility] [place] [address] * (ABNORMAL) Prothrombin Time (08/27/2022 1:37 PM EST) Prothrombin Time 13.5(H) 9.4 - 12.5 sec [facility] International Normalization Ratio 1.2 [facility] Comment: An INR [...] HEMATOLOGY ORDERABLE S [facility] [place] [address] * (ABNORMAL) Comprehensive metabolic panel (non-fasting) (08/27/2022 1:37 PM EST) Glucose 93 65 - 199 mg/dL [facility] Comment:Diabetes: >=200 mg/d L plus symptoms Blood Urea Nitrogen 12 8 - 18 mg/dL [facility] Creatinine 0.61(L) 0.70 - 1.20 mg/dL [facility] Sodium 137 135 - 145 mmol/L [facility] Potassium 3.8 3.5 - 5.0 mmol/L [facility] Comment: Please note: ??Patients with WBC >100,000 may have falsely elevated Potassium levels. ??For accurate Potassium quantification in these patients send serum separator tube (gold top) for subsequent determinations. ??Contact the Clinical Chemistry Laboratory if there are any questions. Chloride 101 98 - 107 mmol/L [facility] Carbon Dioxide 26 22 - 31 mmol/L [facility] Anion Gap 10 5 - 15 mmol/L [facility] Calcium 8.7 8.5 - 10.5 mg/dL [facility] Protein, Total 8.5(H) 6.1 - 8.0 g/dL [facility] Albumin 3.8 3.2 - 5.2 g/dL [facility] Aspartate Aminotransferase 184(H) 0 - 30 unit/L [facility] Alanine Aminotransferase 170(H) 0 - 30 unit/L [facility] Alkaline Phosphatase 141(H) 35 - 105 unit/L [facility] Bilirubin, Total 0.6 0.2 - 1.3 mg/dL [facility] Est Glomerular Filtration Rate 98 >=60 mL/min/1. 73 m?? [facility] [...] MD CHEMISTRY ORDERABLES [facility] [place] [address] * [id number] (08/27/2022 12:00 PM EST) Narrative Mily Garcia MD - 08/27/2022 12:00 PM EST Mily Garcia MD ? 08/27/2022 ??1:10 PM [facility] Liver Fibrosis Assessment Report Indication: ?? 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 Mily Garcia MD PROCEDURE/MINOR SURG ICAL ORDERABLES documented in this encounter Visit Diagnoses Diagnosis Elevated liver enzymes Nonspecific elevation of levels of transaminase or lactic acid dehydrogenase (LDH) DOHERTY (nonalcoholic steatohepatitis) Other chronic nonalcoholic liver disease documented in this encounter Care Teams Engineering Executive Relationship Specialty Start Date End Date Alireza Ojeda DO [address] [place] [address] PCP - General 07/16/11 09/05/22 documented as of this encounter
--- OUTSIDE RECORDS SUMMARY | 2024-08-18 17:58 | XMS_ITS | Encounter Summary ---
Author Organization [facility] Address [facility] [place] [address] Care Team Providers Care Banbury Operator Name Role Phone Sanam Bennett APRN Primary Care Provider Encounter Details Date Type Department Care Team (Late st Contact Info) Description 10/30/2022 Abstract [place] [phone] Mily Garcia MD [facility] [place] [address] Social History Tobacco Use Types Packs/Day Years [...] 09/17/2024 9:00 AM EST Appointment [place] [phone] Mily Garcia MD [facility] [place] [address] 09/17/2024 9:45 AM EST Laboratory Appointment Lab [address] [place] [address] 09/17/2024 11:30 AM EST Office Visit [place] [phone] Mily Garcia MD [facility] [place] [address] documented as of this encounter Visit Diagnoses Not on filedocumented in this encounter Care Teams Banbury Operator Relationship Specialty Start Date End Date Sanam Bennett APRN [address] [place] [address] PCP - General Family Medicine 09/06/22 documented as of this encounter
--- OUTSIDE RECORDS SUMMARY | 2024-08-18 17:58 | XMS_ITS | Encounter Summary ---
Author Organization [facility] Address [facility] [place] [address] Care Team Providers Care Risk Consultant Name Role Phone Sanam Bennett APRN Primary Care Provider [phone] Encounter Details Date Type Department Care Team (Late st Contact Info) Description 11/27/2022 External Results [place] [phone] Mily Garcia MD [facility] [place] [address] Social History Tobacco Use Types Packs/Day Years [...] 09/17/2024 9:00 AM EST Appointment [place] [address] Mily Garcia MD [facility] [place] [address] 09/17/2024 9:45 AM EST Laboratory Appointment Lab [address] [place] [address] 09/17/2024 11:30 AM EST Office Visit [place] [address] Mily Garcia MD [facility] [place] [address] documented as of this encounter Procedures Procedure Name Priority Date/Time Associated Diagnosis Comments EXTERNAL LAB CBC CMP THYROID RESULTS PANEL Routine 11/26/2022 documented in this encounter Results * CBC / CMP / Thyroid External Results (11/26/2022) Sodium 141 Potassium 4.2 Chloride 104 Carbon Dioxide 33 Blood Urea Nitrogen 8 Creatinine 0.7 Est Glomerular Filtration Rate 94.73 Glucose 122 Calcium 8.9 Protein, Total 7.3 Albumin 3.3 Bilirubin, Total 0.3 Alkaline Phosphatase 141 Aspartate Aminotransferase 33 Alanine Aminotransferase 30 Historical Provider EXTERNAL LAB RICCI MAJANO documented in this encounter Visit Diagnoses Not on filedocumented in this encounter Care Teams Risk Consultant Relationship Specialty Start Date End Date Sanam Bnenett APRN [address] [place] [address] PCP - General Family Medicine 09/06/22 documented as of this encounter
--- OUTSIDE RECORDS SUMMARY | 2024-08-18 17:58 | XMS_ITS | Encounter Summary ---
Author Organization [facility] Address [facility] [place] [address] Care Team Providers Care Plastic Injection Mold Maker Name Role Phone OrenSanam herring MERARI Primary Care Provider [phone] Encounter Details Date Type Department Care Team (Late st Contact Info) Description 02/05/2023 External Results [place] [phone] Rebeca Yoon APRN [facility] [place] [address] Social History Tobacco Use Types Packs/Day Years [...] 09/17/2024 9:00 AM EST Appointment [place] [address] Mily Garcia MD [facility] [address] 09/17/2024 9:45 AM EST Laboratory Appointment Lab [address] [place] [address] 09/17/2024 11:30 AM EST Office Visit [place] [address] Mily Garcia MD [facility] [place] [address] documented as of this encounter Procedures Procedure Name Priority Date/Time Associated Diagnosis Comments EXTERNAL LAB CBC CMP THYROID RESULTS PANEL Routine 02/04/2023 documented in this encounter Results * CBC / CMP / Thyroid External Results (02/04/2023) White Blood Cell 5.42 Red Blood Cell 4.46 Hemoglobin 13.0 Hematocrit 39.8 Mean Cell Volume 89.0 Platelet 209 Sodium 141 Potassium 3.6 Chloride 105 Carbon Dioxide 31 Blood Urea Nitrogen 14 Creatinine 0.7 Est Glomerular Filtration Rate 94.73 Glucose 87 Calcium 9.1 Protein, Total 8.0 Albumin 3.6 Bilirubin, Total 0.3 Alkaline Phosphatase 85 Aspartate Aminotransferase 30 Alanine Aminotransferase 30 Historical Provider EXTERNAL LAB RICCI MAJANO documented in this encounter Visit Diagnoses Not on filedocumented in this encounter Care Teams Plastic Injection Mold Maker Relationship Specialty Start Date End Date Sanam Bennett APRN [address] [place] [address] PCP - General Family Medicine 09/06/22 documented as of this encounter
--- OUTSIDE RECORDS SUMMARY | 2024-08-18 17:58 | XMS_ITS | Encounter Summary ---
[place] [address] Care Team Providers Care Time Lock Expert Name Role Phone Alireza Ojeda DO Primary Care Provider [phone] Reason for Visit * Reason Onset Date Comments Other 07/21/2013 Called Patient Encounter Details Date Type Department Care Team (Late st Contact Info) Description 07/21/2013 Telephone [place] [address] Honey Llamas Other (Called Patient) Social History [...] 09/17/2024 9:00 AM EST [place] [address] Mily Garcia MD [facility] [place] [address] 09/17/2024 9:45 AM EST Laboratory Appointment Lab [address] [place] [address] 09/17/2024 11:30 AM EST Office [place] [address] Mily Garcia MD [facility] [place] [address] documented as of this encounter Visit Diagnoses Not on filedocumented in this encounter Care Teams Time Lock Expert Relationship Specialty Start Date End Date Alireza Ojeda DO [address] [place] [address] PCP - General 07/16/11 09/05/22 documented as of this encounter
--- OUTSIDE RECORDS SUMMARY | 2024-08-18 17:58 | XMS_ITS | Encounter Summary ---
Author Organization [facility] Address [facility] [place] [address] Care Team Providers Care Reaming Machine Operator For Plastic Name Role Phone Sanam Bennett APRN Primary Care Provider Encounter Details Date Type Department Care Team (Late st Contact Info) Description 11/13/2022 External [place] [phone] Mily Garcia MD [facility] [place] [address] Social History Tobacco Use Types Packs/Day Years [...] 09/17/2024 9:00 AM [place] [address] Mily Garcia MD [facility] [place] [address] 09/17/2024 9:45 AM EST Laboratory Appointment Lab [address] [place] [address] 09/17/2024 11:30 AM EST Office [place] [address] Mily Garcia MD [facility] [place] [address] documented as of this encounter Procedures Procedure Name Priority Date/Time Associated Diagnosis Comments EXTERNAL LAB CBC CMP THYROID RESULTS PANEL Routine 11/12/2022 documented in this encounter Results * CBC / CMP / Thyroid External Results (11/12/2022) White Blood Cell 8.34 Red Blood Cell 5.19 Hemoglobin 14.9 Hematocrit 45.4 Mean Cell Volume 88.0 Platelet 204 Sodium 136 Potassium 4.2 Chloride 100 Carbon Dioxide 26 Blood Urea Nitrogen 14 Creatinine 0.8 Est Glomerular Filtration Rate 80.71 Glucose 137 Calcium 9.0 Protein, Total 8.1 Albumin 3.8 Bilirubin, Total 0.5 Alkaline Phosphatase 108 Aspartate Aminotransferase 29 Alanine Aminotransferase 40 Historical Provider EXTERNAL LAB RICCI MAJANO documented in this encounter Visit Diagnoses Not on filedocumented in this encounter Care Teams Reaming Machine Operator For Plastic Relationship Specialty Start Date End Date Sanam Bennett APRN [facility] [address] [place] [address] PCP - General Family Medicine 09/06/22 documented as of this encounter
--- OUTSIDE RECORDS SUMMARY | 2024-08-18 17:58 | XMS_ITS | Encounter Summary ---
Author Organization [facility] Address [facility] [place] [address] Care Team Providers Care Balance Engineer Name Role Phone Alireza Ojeda DO Primary Care Provider [phone] Reason for Visit * Reason Onset Date Comments Medication Refill 10/07/2013 Encounter Details Date Type Department Care Team (Late st Contact Info) Description 10/07/2013 Refill [place] [address] Jo-Ann Grubbs APRN [facility] DR [place] [address] Social History Tobacco Use Types Packs/Day Years [...] 09/17/2024 9:00 AM [place] [phone] Mily Garcia MD [facility] [place] [address] 09/17/2024 9:45 AM EST Laboratory Appointment Lab [address] [place] [address] 09/17/2024 11:30 AM EST Office [place] [address] Mily Garcia MD [facility] [place] [address] documented as of this encounter Visit Diagnoses Not on filedocumented in this encounter Care Teams Balance Engineer Relationship Specialty Start Date End Date Alireza Ojeda DO [address] [place] [address] PCP - General 07/16/11 09/05/22 documented as of this encounter
--- OUTSIDE RECORDS SUMMARY | 2024-08-18 17:58 | XMS_ITS | Encounter Summary ---
[place] [address] Care Team Providers Care Fixed Income Analyst Name Role Phone Sanam Bennett MERARI Primary Care Provider Encounter Details Date Type Department Care Team (Late st Contact Info) Description 09/03/2022 Telephone [place] [phone] Ronel Encinas Social History Tobacco Use Types [...] 09/17/2024 9:00 AM EST [place] [address] Mily Garcia MD [facility] [place] [address] 09/17/2024 9:45 AM EST Laboratory Appointment Lab [address] [place] [address] 09/17/2024 11:30 AM EST Office [place] [address] Mily Garcia MD [facility] [place] [address] documented as of this encounter Visit Diagnoses Not on filedocumented in this encounter Care Teams Fixed Income Analyst Relationship Specialty Start Date End Date Sanam Bennett APRN [address] [place] [address] [address] [place] [address] PCP - General Family Medicine 09/06/22 documented as of this encounter
--- OUTSIDE RECORDS SUMMARY | 2024-08-18 17:58 | XMS_ITS | Encounter Summary ---
Author [facility] [place] [address] Care Team Providers Care Glass Cutting Machine Feeder Name Role Phone Alireza Ojeda DO Primary Care Provider [phone] Encounter Details Date Type Department Care Team (Latest Contact Info) Description 07/20/2013 Unscheduled [place] [address] Michael Garcia MD [facility] DR [place] [address] GERD (gastroesophageal reflux disease) (Primary Dx) Social [...] Garcia MD - 07/22/2013 8:09 AM EDT JULIP-MAFOT-UESL WIRELESS pH CAPSULE STUDY AFTER UPPER ENDOSCOPY Genoveva Whiting Female, 58 yrs,1955 PCP: ALIREZA OJEDA CONVEYOR BELT INSTALLER: NONE STUDY DATES: 07/07/13 to 07/09/13 INTERPRETATION DATE: 07/20/13 PROVIDER: Michael Garcia PhD, ([id number]) INDICATION Persistent reflux symptoms despite medical therapy. 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 No meaningful data can be obtained. RECOMMENDATION Schedule 24-hour impedance-pH study on 60 mg of Dexilant twice daily to ensure that meaningful data is obtained on the second study. The patient will not be charged for this study. Michael Garcia MD, PhD pie crimping machine operator, [facility] Section of Gastroenterology [place] [address] V: [phone] F: [phone] BEL/johnathon EC/CC: PCP Jo-Ann Grubbs APRN documented in this encounter Plan of Treatment Upcoming Encounters Date Type Department Care Team (Late st Contact Info) Description 09/17/2024 9:00 AM [place] [address] Mily Garcia MD [facility] [place] [address] 09/17/2024 9:45 AM EST Laboratory Appointment Lab [address] [place] [address] 09/17/2024 11:30 AM EST Office [place] [address] Mily Garcia MD [facility] [place] [address] documented as of this encounter Visit Diagnoses Diagnosis GERD (gastroesophageal reflux disease)- Primary Esophageal reflux documented in this encounter Care Teams Glass Cutting Machine Feeder Relationship Specialty Start Date End Date Alireza Ojeda DO [address] [place] [address] PCP - General 07/16/11 09/05/22 documented as of this encounter
--- OUTSIDE RECORDS SUMMARY | 2024-08-18 17:58 | XMS_ITS | Encounter Summary ---
Author Organization [facility] Address [facility] [place] [address] Care Team Providers Care Hearing Dog Trainer Name Role Phone Alireza Ojeda DO Primary Care Provider [phone] Reason for Visit * Reason Comments Follow-up Encounter Details Date Type Department Care Team (Late st Contact Info) Description 10/06/2013 3:30 PM EST [place] [address] Jo-Ann Grubbs APRN [facility] DR [place] [address] Esophageal reflux (Primary Dx) Discharge Disposition: Home [...] 09/17/2024 9:00 AM [place] [phone] Mily Garcia MD [facility] [place] [address] 09/17/2024 9:45 AM EST Laboratory Appointment Lab [address] [place] [address] 09/17/2024 11:30 AM EST Office [place] [address] Mily Garcia MD [facility] [place] [address] documented as of this encounter Visit Diagnoses Diagnosis Esophageal reflux- Primary documented in this encounter Care Teams Hearing Dog Trainer Relationship Specialty Start Date End Date Alireza Ojeda DO [address] [place] [address] PCP - General 07/16/11 09/05/22 documented as of this encounter
--- OUTSIDE RECORDS SUMMARY | 2024-08-18 17:58 | XMS_ITS | Encounter Summary ---
Author Organization [facility] [place] [address] Care Team Providers Care Hot Dimpling Machine Operator Name Role Phone Alireza Ojeda DO Primary Care Provider [phone] Reason for Visit * Reason Comments Posterior Capsule Opacification s/p Yag Caps OD 03/13/2019, OS 03/20/19 Encounter Details Date Type Department Care Team (Late st Contact Info) Description 04/17/2019 4:00 PM EDT Office [place] [address] Ricky Abad MD [facility] [place] [address] S/P YAG capsulotomy, left Social History Tobacco [...] 09/17/2024 9:00 AM EST [place] [address] Mily Garcia MD [facility] [place] [address] 09/17/2024 9:45 AM EST Laboratory Appointment Lab [address] [place] [address] 09/17/2024 11:30 AM EST Office [place] [address] Mily Garcia MD [facility] [place] [address] documented as of this encounter Visit Diagnoses Diagnosis S/P YAG capsulotomy, left documented in this encounter Care Teams Hot Dimpling Machine Operator Relationship Specialty Start Date End Date Alireza Ojeda DO [address] [place] [address] PCP - General 07/16/11 09/05/22 documented as of this encounter
--- OUTSIDE RECORDS SUMMARY | 2024-08-18 17:58 | XMS_ITS | Encounter Summary ---
Author Organization [facility] Address [facility] [place] [address] Care Team Providers Care Library Serials Assistant Name Role Phone OrenSanam herring MERARI Primary Care Provider [phone] Encounter Details Date Type Department Care Team (Latest Contact Info) Description 12/25/2022 7:07 AM EDT - 12/25/2022 11:59 PM EDT Hospital [place] [address] Mily Garcia MD [facility] [address] Hepatic cirrhosis, unspecified hepatic cirrhosis type, unspecified [...] 09/17/2024 9:00 AM EST [place]ointment [place] [phone] Mliy Garcia MD [facility] [place] [address] 09/17/2024 9:45 AM EST Laboratory Appointment Lab [address] [place] [address] 09/17/2024 11:30 AM EST Office [place] [address] Mily Garcia MD [facility] [place] [address] documented as of this encounter Procedures Procedure [...] who have questions, please contact the health physician locums urgent care that requested your imaging first. ?Que Tee, Staff Physician Electronically Signed Final Report ?? 12/25/2022 09:01 am Narrative 12/25/2022 9:01 AM EDT Abdominal ? (Signed Final 12/25/2022 09:01 am) PATIENT INFO: ID #: ? [id number] ?: ??[birth year] (67 yrs)(F) Name: ? GENOVEVA Zaragoza ?Visit Date: 12/25/2022 08:08 am ? KISHA PERFORMED BY: Attending: ?Randal GO, Que Mathis Resident: ? Francisco Javier GO, Ilda Perrin Performed By: ? Baljit Olivas RDMS Referred By: ?MILY GARCIA Location: ? [place] SERVICE(S) PROVIDED: [id number] - Hepatology Protocol - Abdominal ?22992 Limited Survey Single Organ or Quadrant - [id number] INDICATIONS: cirrhosis, HCC screening COMPARISON: US: Abdomen [...] 12/25/2022 09:01 am) PATIENT INFO: ID #: [id number] : [birth year] (67 yrs)(F) Name: GENOVEVA Zaragoza Visit Date: 12/25/2022 08:08 am KISHA PERFORMED BY: Attending: Que Tee MD Resident: Ilda Mcintyre MD Performed By: Baljit Olivas RDMS Referred By: MILY GARCIA Location: [place] SERVICE(S) PROVIDED: [facility] - Hepatology Protocol - Abdominal 42689 Limited Survey Single Organ or Quadrant - [id number] INDICATIONS: cirrhosis, HCC screening COMPARISON: US: Abdomen [...] who have questions, please contact the health physician locums urgent care that requested your imaging first. Que Tee, Staff Physician Electronically Signed Final Report 12/25/2022 09:01 am Mily Garcia MD IMG US GEN ORDERABLE S documented in this encounter Visit Diagnoses Diagnosis Hepatic cirrhosis, unspecified hepatic cirrhosis type, unspecified whether ascites present documented in this encounter Care Teams Library Serials Assistant Relationship Specialty Start Date End Date Sanam Bennett APRN [address] [place] [address] PCP - General Family Medicine 09/06/22 documented as of this encounter
--- OUTSIDE RECORDS SUMMARY | 2024-08-18 17:58 | XMS_ITS | Encounter Summary ---
[place] [address] Care Team Providers Care Tank Refinisher Name Role Phone Alireza Ojeda DO Primary Care Provider [phone] Reason for Referral * Consultation (Routine) - Closed Specialty Diagnoses / Procedures Referred By Gabrielle graves Referred To Contact Gastroenterology Diagnoses DOHERTY (nonalcoholic steatohepatitis) Fatty liver, DOHERTY, Eval for MRCP vs/ ERCP Genoveva Maher MD [facility] [place] [address] [facility] [address] [place] [phone] Referral ID Status Reason Start Date Expiration Date V isits Requested Visits Authorized [id number] Closed Consult, Test & Treat 06/27/2022 06/27/2023 1 1 Encounter Details Date Type Department Care Team (Late st Contact Info) Description 06/27/2022 Transcribe Orders eDH Incoming Referrals [phone] Genoveva Maher MD [facility] [address] [place], [place] [id number] DOHERTY (nonalcoholic steatohepatitis) Social History Tobacco Use [...] 09/17/2024 9:00 AM EST Appointment [place] [address] Mily Garcia MD [facility] [place] [address] 09/17/2024 9:45 AM EST Laboratory Appointment Lab [address] [place] [address] 09/17/2024 11:30 AM EST Office [place] [address] Mily Garcia MD [facility] [place] [address] Scheduled Referrals Name Type Priority Associated Diagnoses Order Schedule Referral to Gastroenterology Outpatient Referral Routine DOHERTY (nonalcoholic steatohepatitis) Ordered: 06/27/2022 documented as of this encounter Visit Diagnoses Diagnosis DOHERTY (nonalcoholic steatohepatitis) Other chronic nonalcoholic liver disease documented in this encounter Care Teams Tank Refinisher Relationship Specialty Start Date End Date Alireza Ojeda DO [address] [place] [address] PCP - General 07/16/11 09/05/22 documented as of this encounter
--- OUTSIDE RECORDS SUMMARY | 2024-08-18 17:58 | XMS_ITS | Encounter Summary ---
[place] [address] Care Team Providers Care Dividing Machine Operator Helper Name Role Phone Alireza Ojeda DO Primary Care Provider Encounter Details Date Type Department Care Team (Late st Contact Info) Description 08/10/2013 1:00 PM EST Office Visit [place] [address] CLINIC, Krystle Burton RN GERD (gastroesophageal reflux [...] Garcia MD - 08/16/2013 4:22 PM EST UANNOI-CKOO-SOLE IMPEDANCE AND pH STUDY Genoveva Whiting Female, 58 yrs, 1955 PCP: ALIREZA OJEDA HAND STRAIGHTENER: NONE STUDY DATE: 08/10/13 to 08/11/13 PROVIDER: [place] Garcia[place] ([id number]) REQUESTING PROVIDER(S): INDICATION Reflux symptoms despite medical [...] nose and oropharynx, a combination impedance-pH catheter ([employer]) was passed transnasally and positioned with the [...] association was poor. Michael Garcia, PhD, MD director adult, [facility] Section of Gastroenterology and Hepatology [facility] [place] [address] V: [phone] F: [phone] ALIZA/johnathon Campbell: 08/11/13 EC/CC: PCP * Krystle [...] 09/17/2024 9:00 AM EST Appointment [place] [address] Mily Garcia MD [facility] [place] [place] [address] 09/17/2024 9:45 AM EST Laboratory Appointment Lab [address] [place] [address] 09/17/2024 11:30 AM EST Office Visit [place] [address] Mily Garcia MD [facility] [place] [address] documented as of this encounter Visit Diagnoses Diagnosis GERD (gastroesophageal reflux disease)- Primary Esophageal reflux documented in this encounter Care Teams Dividing Machine Operator Helper Relationship Specialty Start Date End Date Alireza Ojeda DO [address] [place] [address] PCP - General 07/16/11 09/05/22 documented as of this encounter
--- OUTSIDE RECORDS SUMMARY | 2024-08-18 17:58 | XMS_ITS | Encounter Summary ---
Author Organization Formerly [facility] Address [facility] [place] [address] Care Team Providers Care Pharmacy Coordinator Name Role Phone Sanam [place] MERARI Primary Care Provider Encounter Details Date Type Department Care Team (Latest Contact Info) Description 12/25/2022 9:00 AM EDT Laboratory Appointment Lab [address] [place] [phone] Hepatic cirrhosis, unspecified hepatic cirrhosis type, unspecified [...] 09/17/2024 9:00 AM EST [place] [phone] Mily Garcia MD [facility] [place] [address] 09/17/2024 9:45 AM EST Laboratory Appointment Lab [address] [place] [address] 09/17/2024 11:30 AM EST Office [place] [address]-1000 Mily Garcia MD [facility] [place] [address] documented as of this encounter Procedures Procedure Name Priority Date/Time Associated Diagnosis Comments HEMOGRAM Routine 12/25/2022 8:45 AM EDT Hepatic cirrhosis, unspecified hepatic cirrhosis type, unspecified whether ascites present DIFFERENTIAL, AUTOMATED Routine 12/25/2022 8:45 AM EDT Hepatic cirrhosis, unspecified hepatic cirrhosis type, unspecified whether ascites present AFP TUMOR MARKER Routine 12/25/2022 8:45 AM EDT Hepatic cirrhosis, unspecified hepatic cirrhosis type, unspecified whether ascites present HC PROTHROMBIN TIME Routine 12/25/2022 8 :45 AM EDT Hepatic cirrhosis, unspecified hepatic cirrhosis type, unspecified whether ascites present HC CBC,PLT & AUTO DIFF Routine 8:45 AM EDT Hepatic cirrhosis, unspecified hepatic cirrhosis type, unspecified whether ascites present COMPREHENSIVE METABOLIC PANEL Routine 12/25/2022 8:45 AM EDT Hepatic cirrhosis, unspecified hepatic cirrhosis type, unspecified whether ascites present documented in this encounter Results * Differential, Automated (12/25/2022 8:45 AM EDT) Neutrophil % 46.8 % [facility] Neutrophil Absolute 3.02 1.70 - 6.10 x10(3)/[facility] LABORAT[facility] Lymph % 41.0 % [facility] Lymphocytes Abs 2.6 0.9 - 3.2 x10(3)/[facility] LABORATORY Monocyte % 8.8 % [facility] Monocyte Abs 0.6 0.3 - 0.9 x10(3)/[facility] Eos % 2.0 % [facility] Eosinophils Abs 0.1 0.0 - 0.4 x10(3)/[facility] LABORAT[facility] Basophil % 1.1 % [facility] Baso Absolute 0.1 0.0 - 0.1 x10(3)/[facility] LABORATORY Immature Gran % 0.30 % [facility] Comment: Immature granulocytes(IG's)percentage and absolute count will include metamyelocytes, myelocytes, and promyelocytes. Blood smears from CBCs yielding IG's will be scanned manually for concordance. If this scan disagrees with the automated IG or if promyelocytes are noted, a manual differential will be performed. Immature Gran Absolute 0.02 0.00 - 0.04 x10(3)/[facility] Blood 12/25/2022 8:45 AM EDT 12/25/2022 9:18 AM EDT Narrative Resulting Agency Comment Spec In Lab Mily Garcia MD HEMATOLOGY ORDERABLE S [facility] [place] [address] * Hemogram (12/25/2022 8:45 AM EDT) White Blood Cell 6.5 4.0 - 9.5 x10(3)/[facility] LABORAT[facility] Red Blood Cell 4.39 4.00 - 5.21 x10(6)/[facility] Hemoglobin 12.7 11.7 - 15.5 g/dL [facility] Hematocrit 38.2 35.7 - 45.8 % [facility] Mean Cell Volume 87.0 82.6 - 94.4 fL [facility] Mean Cell Hemoglobin 28.9 27.1 - 32.0 pg [facility] Mean Cell Hemoglobin Concentration 33.2 31.7 - 35.0 g/dL [facility] Platelet 210 145 - 357 x10(3)/[facility]ORATORY RDW Standard Deviation 43.6 37.0 - 46.0 fL [facility] RDW coefficient of variation 13.5 11.5 - 14.1 % [facility] Mean Platelet Volume 11.4 7.6 - 12.9 fL [facility] NRBC% auto 0.0 % [facility] NRBC Absolute 0.000 0.000 - 0.000 x10(3)/[facility] Blood 12/25/2022 8:45 AM EDT 12/25/2022 9:18 AM EDT Narrative Resulting Agency Comment Spec In Lab Mily Garcia MD HEMATOLOGY ORDERABLE S [facility] [address] * (ABNORMAL) Comprehensive metabolic panel (non-fasting) (12/25/2022 8:45 AM EDT) Glucose 98 65 - 199 mg/dL [facility] Comment:Diabetes: >=200 mg/d L plus symptoms Blood Urea Nitrogen 10 8 - 18 mg/dL [facility] Creatinine 0.59(L) 0.70 - 1.20 mg/dL [facility] Sodium 142 135 - 145 mmol/L [facility] Potassium 4.2 3.5 - 5.0 mmol/L [facility] Comment: Please note: ??Patients with WBC >100,000 may have falsely elevated Potassium levels. ??For accurate Potassium quantification in these patients send serum separator tube (gold top) for subsequent determinations. ??Contact the Clinical Chemistry Laboratory if there are any questions. Chloride 104 98 - 107 mmol/L [facility] Carbon Dioxide 29 22 - 31 mmol/L [facility] Anion Gap 9 5 - 15 mmol/L [facility] Calcium 9.0 8.5 - 10.5 mg/dL [facility] Protein, Total 7.7 6.1 - 8.0 g/dL [facility] Albumin 4.3 3.2 - 5.2 g/dL [facility] Aspartate Aminotransferase 37(H) 0 - 30 unit/L [facility] Alanine Aminotransferase 25 0 - 30 unit/L [facility] Alkaline Phosphatase 89 35 - 105 unit/L [facility] Bilirubin, Total 0.4 0.2 - 1.3 mg/dL [facility] Est Glomerular Filtration Rate 99 >=60 mL/min/1. 73 m?? [facility] Comment: This patient's estimated GFR was [...] Garcia MD CHEMISTRY ORDERABLES Performing Organization Address [facility] Co de Phone Number [facility] [place] [address] * (ABNORMAL) Prothrombin Time (12/25/2022 8:45 AM EDT) Prothrombin Time 13.1(H) 9.4 - 12.5 sec [facility] International Normalization Ratio 1.1 [facility] Comment: An INR <2.0 indicates adequate [...] MD HEMATOLOGY ORDERABLE S Performing Organization Address [facility] Co de Phone Number [facility] [place] [address] * AFP tumor marker (12/25/2022 8:45 AM EDT) Alpha Fetoprotein 4.1 <=8.3 ng/mL [facility] Comment: This result was generated using a Radha Anshu immunoassay. ??Results obtained from other methods or manufacturers cannot be used interchangeably with this method. Blood 12/25/2022 8:45 AM EDT 12/25/2022 9:18 AM EDT Narrative Resulting Agency Comment Spec In Lab Mily Garcia MD CHEMISTRY ORDERABLES Performing Organization Address City/State/[facility] Co de Phone Number [facility] [address] documented in this encounter Visit Diagnoses Diagnosis Hepatic cirrhosis, unspecified hepatic cirrhosis type, unspecified whether ascites present documented in this encounter Care Teams Pharmacy Coordinator Relationship Specialty Start Date End Date Sanam [place] APRN [address] [place] [address] [address] [place] [address] PCP - General Family Medicine 09/06/22 documented as of this encounter
--- OUTSIDE RECORDS SUMMARY | 2024-08-18 17:58 | XMS_ITS | Encounter Summary ---
Author Organization [facility] [place] [address] Care Team Providers Care Molding Machine Operator Name Role Phone Sanam [place] APRN Primary Care Provider Encounter Details Date Type Department Care Team (Late st Contact Info) Description 11/20/2022 External [place] [phone] Analy [place], RAÚL Social History Tobacco Use [...] 09/17/2024 9:00 AM [place] [phone] Mily Garcia MD [facility] [place] [address] 09/17/2024 9:45 AM EST Laboratory Appointment Lab [facility] [facility] [place] [address] 09/17/2024 11:30 AM EST Office [place] [address] Mily Garcia MD [facility] [place] [address] documented as of this encounter Procedures Procedure Name Priority Date/Time Associated Diagnosis Comments EXTERNAL LAB CBC CMP THYROID RESULTS PANEL Routine 11/19/2022 documented in this encounter Results * CBC / CMP / Thyroid External Results (11/19/2022) White Blood Cell 7.67 [facility] Red Blood Cell 4.90 [facility] Hemoglobin 14.2 [facility] Hematocrit 43.3 [facility] Mean Cell Volume 88.0 [facility] Platelet 263 [facility] Sodium 141 [facility] Potassium 3.8 [facility] Chloride 103 [facility] Carbon Dioxide 30 [facility] Blood Urea Nitrogen 9 [facility] Creatinine 0.8 [facility] Est Glomerular Filtration Rate 80.71 [facility] Glucose 121 [facility] Calcium 9.1 [facility] Protein, Total 7.9 [facility] Albumin 3.5 [facility] Bilirubin, Total 0.4 [facility] Alkaline Phosphatase 100 [facility] Aspartate Aminotransferase 28 [facility] Alanine Aminotransferase 32 [facility] 11/19/2022 Historical Provider EXTERNAL LAB [facility] documented in this encounter Visit Diagnoses Not on filedocumented in this encounter Care Teams Molding Machine Operator Relationship Specialty Start Date End Date Sabrina MERARI [place] [address] [place] [address] PCP - General Family Medicine 09/06/22 documented as of this encounter
--- OUTSIDE RECORDS SUMMARY | 2024-08-18 17:58 | XMS_ITS | Encounter Summary ---
[place] [address] Care Team Providers Care Defensive Line Coach Name Role Phone Alireza Ojeda DO Primary [...] 09/17/2024 9:00 AM EST Appointment [place] [phone] Mily Garcia MD [facility] [place] [address] 09/17/2024 9:45 AM EST Laboratory Appointment Lab [address] [place] [phone] 09/17/2024 11:30 AM EST Office Visit [place] [address] Mily Garcia MD [facility] [place] [address] documented as of this encounter Visit Diagnoses Not on filedocumented in this encounter Care Teams Defensive Line Coach Relationship Specialty Start Date End Date Alireza Ojeda DO [address] [place] [address] PCP - General 07/16/11 09/05/22 documented as of this encounter
--- OUTSIDE RECORDS SUMMARY | 2024-08-18 17:58 | XMS_ITS | Encounter Summary ---
Author Organization [facility] [place] [address] Care Team Providers Care Nuclear Monitoring Technician Name Role Phone Alireza Ojeda DO Primary Care Provider Reason for Visit * Reason Comments Procedure Encounter Details Date Type Department Care Team (Latest Contact Info) Description 03/13/2019 3:00 PM EDT Procedure visit [place] [address] Ricky Aabd MD [facility] [place] [address] PCO (posterior capsule opacification), bilateral Social History [...] 09/17/2024 9:00 AM EST Appointment [place] [address] Mily Garcia MD [facility] [place] [address] 09/17/2024 9:45 AM EST Laboratory Appointment Lab [address] [place] [phone] 09/17/2024 11:30 AM EST Office Visit [place] [phone] Mily Garcia MD [facility] [place] [address] documented as of this encounter Procedures Procedure [...] bilateral documented in this encounter Care Teams Nuclear Monitoring Technician Relationship Specialty Start Date End Date Alireza Ojeda DO [address] [place] [address] PCP - General 07/16/11 09/05/22 documented as of this encounter
--- OUTSIDE RECORDS SUMMARY | 2024-08-18 17:58 | XMS_ITS | Encounter Summary ---
Author Organization [facility] [place] [address] Care Team Providers Care Welder Experimental Name Role Phone Alireza Ojeda DO Primary Care Provider Encounter Details Date Type Department Care Team (Late st Contact Info) Description 07/10/2013 5:00 PM EDT Office [place] [address] Michael Garcia MD [facility] DR GASTROENTER[place] [address] Esophageal reflux (Primary Dx) Discharge Disposition: Home [...] 09/17/2024 9:00 AM EST [place] [address] Mily Garcia MD [facility] [place] [address] 09/17/2024 9:45 AM EST Laboratory Appointment Lab [address] [place] [address] 09/17/2024 11:30 AM EST Office [place] [address] Mily Garcia MD [facility] [place] [address] documented as of this encounter Visit Diagnoses Diagnosis Esophageal reflux- Primary documented in this encounter Care Teams Welder Experimental Relationship Specialty Start Date End Date Alireza Ojeda DO [address] [place] [address] PCP - General 07/16/11 09/05/22 documented as of this encounter
--- OUTSIDE RECORDS SUMMARY | 2024-08-18 17:58 | XMS_ITS | Encounter Summary ---
Author Organization [facility] [place] [address] Care Team Providers Care Patent Prosecution Attorney Name Role Phone Sanam [place] MERARI Primary [...] 09/17/2024 9:00 AM [place] [phone] Mily Garcia MD [facility] [place] [place] [address] 09/17/2024 9:45 AM EST Laboratory Appointment Lab [address] [place] [phone] 09/17/2024 11:30 AM EST Office [place] [address] Mily Garcia MD [facility] [place] [address] documented as of this encounter Visit Diagnoses Not on filedocumented in this encounter Care Teams Patent Prosecution Attorney Relationship Specialty Start Date End Date Sanam [place] APRN [address] [place] [address] [address] [place] [address] PCP - General Family Medicine 09/06/22 documented as of this encounter
--- OUTSIDE RECORDS SUMMARY | 2024-08-18 17:58 | XMS_ITS | Encounter Summary ---
Author Organization [facility] [place] [address] Care Team Providers Care Log Haul Chain Feeder Name Role Phone Sanam [place] MERARI Primary [...] 09/17/2024 9:00 AM EST Appointment [place] [phone] Mily Garcia MD [facility] [place] [address] 09/17/2024 9:45 AM EST Laboratory Appointment Lab 3L [place] [phone] 09/17/2024 11:30 AM EST Office Visit [place] [address] Mily Garcia MD [facility] [place] [address] documented as of this encounter Visit Diagnoses Not on filedocumented in this encounter Care Teams Log Haul Chain Feeder Relationship Specialty Start Date End Date Sanam [place] APRN [address] [place] [address] [address] [place] [address] PCP - General Family Medicine 09/06/22 documented as of this encounter
--- OUTSIDE RECORDS SUMMARY | 2024-08-18 17:58 | XMS_ITS | Encounter Summary ---
Author Organization [facility] [place] [address] Care Team Providers Care Forensics Analyst Name Role Phone Alireza Ojeda DO Primary Care Provider [phone] Encounter Details Date Type Department Care Team (Late st Contact Info) Description 05/31/2022 Ancillary Procedure Radiology Library at [facility] [place] [address] Alireza Ojeda DO [address] [place], [place] [address] Social History Tobacco Use Types Packs/Day Years [...] 09/17/2024 9:00 AM EST Appointment Ultrasound at [facility] [place] [address] Mily Garcia MD [facility] GASTROENTEROLOG[place] [address] 09/17/2024 9:45 AM EST Laboratory Appointment Lab [address] [place] [phone] 09/17/2024 11:30 AM EST Office [place] [phone] Mily Garcia MD [facility] [place] [address] documented as of this encounter Procedures Procedure Name Priority Date/Time Associated Diagnosis Comments FILM LIBRARY STORAGE ONLY ULTRASOUND STUDY Routine 05/31/2022 12:00 AM EDT documented in this encounter Results * Film Library- Storage Only Ultrasound Study (05/31/2022 12:00 AM EDT) Narrative [facility] - 06/26/2022 12:26 AM EDT This exam is auto-finalizing. It's purpose is for storage only. Alireza Ojeda DO [facility] FILM LIBRARY ORD ERABLES [place], [place] documented in this encounter Visit Diagnoses Not on filedocumented in this encounter Care Teams Forensics Analyst Relationship Specialty Start Date End Date Alireza Ojeda DO [address] [place] [address] PCP - General 07/16/11 09/05/22 documented as of this encounter
--- OUTSIDE RECORDS SUMMARY | 2024-08-18 17:58 | XMS_ITS | Encounter Summary ---
Author Organization [facility] [place] [address] Care Team Providers Care Set Designer Name Role Phone Sanam [place] MERARI Primary [...] 09/17/2024 9:00 AM [place] [phone] Mily Garcia MD [facility] [place] [address] 09/17/2024 9:45 AM EST Laboratory Appointment Lab [address] [place] [phone] 09/17/2024 11:30 AM EST Office [place] [address] Mily Garcia MD [facility] [address] documented as of this encounter Visit Diagnoses Not on filedocumented in this encounter Care Teams Set Designer Relationship Specialty Start Date End Date Sanam [place] APRN [address] [place] [address] [address] [place] [address] PCP - General Family Medicine 09/06/22 documented as of this encounter
--- OUTSIDE RECORDS SUMMARY | 2024-08-18 17:58 | XMS_ITS | Encounter Summary ---
Author Organization [facility] Address [facility] [place] [address] Care Team Providers Care Custom Applicator Name Role Phone Sanam [place] APRN Primary Care Provider [phone] Encounter Details Date Type Department Care Team (Late st Contact Info) Description 01/08/2023 External Results [place] [phone] Mily Garcia MD [facility] [place] [address] Social History Tobacco Use Types Packs/Day Years [...] 09/17/2024 9:00 AM EST Appointment [place] [phone] Mily Garcia MD [facility] [place] [address] 09/17/2024 9:45 AM EST Laboratory Appointment Lab [address] [place] [address] 09/17/2024 11:30 AM EST Office Visit [place] [address] iMly Garcia MD [facility] DR GASTROENTEROLOGY [place], [place] [address] documented as of this encounter Procedures Procedure Name Priority Date/Time Associated Diagnosis Comments EXTERNAL LAB CBC CMP THYROID RESULTS PANEL Routine 01/07/2023 documented in this encounter Results * CBC / CMP / Thyroid External Results (01/07/2023) Sodium 139 Potassium 3.8 Chloride 103 Carbon Dioxide 30 Blood Urea Nitrogen 12 Creatinine 0.7 Est Glomerular Filtration Rate 94.73 Glucose 86 Calcium 8.9 Protein, Total 7.9 Albumin 3.5 Bilirubin, Total 0.3 Alkaline Phosphatase 96 Aspartate Aminotransferase 42 Alanine Aminotransferase 35 Historical Provider EXTERNAL LAB RICCI MAJANO documented in this encounter Visit Diagnoses Not on filedocumented in this encounter Care Teams Custom Applicator Relationship Specialty Start Date End Date Sanam [place] APRN [address] [place] [address] PCP - General Family Medicine 09/06/22 documented as of this encounter
--- OUTSIDE RECORDS SUMMARY | 2024-08-18 17:58 | XMS_ITS | Encounter Summary ---
Author Organization [facility] Address [facility] [place] [address] Care Team Providers Care Laborer Cutting Tool Name Role Phone Alireza Ojeda DO Primary Care Provider Reason for Visit * Reason Comments Pseudophakia * Consultation (Routine) - Specialty Diagnoses / Procedures Referred By Gabrielle graves Referred To Contact Ophthalmology Diagnoses Randall Glez, OD [address] [place] [address] Ricky Abad MD [facility] [place] [address] Referral ID Status Reason Start Date Expiration Date V isits Requested Visits Authorized [id number] Consult, Test & Treat PCP Updated and/or Approved 12/18/2018 12/18/2019 1 1 Encounter Details Date Type Department Care Team (Late st Contact Info) Description 03/13/2019 1:45 PM EDT Office [place] [address] Ricky Abad MD [facility] [place] [address] PCO (posterior capsule opacification), bilateral Social History [...] 09/17/2024 9:00 AM EST Appointment [place] [address] Mily Garcia MD [facility] [place] [address] 09/17/2024 9:45 AM EST Laboratory Appointment Lab [address] [place] [address] 09/17/2024 11:30 AM EST Office Visit [place] [address] Mily Garcia MD [facility] [place] [address] documented as of this encounter Visit Diagnoses Diagnosis PCO (posterior capsule opacification), bilateral documented in this encounter Care Teams Laborer Cutting Tool Relationship Specialty Start Date End Date Alireza Ojeda DO [address] [place] [address] PCP - General 07/16/11 09/05/22 documented as of this encounter
--- OUTSIDE RECORDS SUMMARY | 2024-08-18 17:58 | XMS_ITS | Encounter Summary ---
Author Organization [facility] [place] [address] Care Team Providers Care Seconds Grader Name Role Phone Sanam Bennett MERARI Primary Care Provider +[phone] Reason for Referral * Consultation (Routine) - Denied Specialty Diagnoses / Procedures Referred By Gabrielle graves Referred To Contact Endocrinology Diagnoses Hepatic cirrhosis, unspecified hepatic cirrhosis type, unspecified whether ascites present Mily Garcia MD [facility] [place] [address] [facility] [address] [place] [address] Referral ID Status Reason Start Date Expiration Date V isits Requested Visits Authorized [id number] Denied Continuity of Care 10/09/2022 10/09/2023 1 0 Encounter Details Date Type Department Care Team (Late st Contact Info) Description 10/09/2022 11:30 AM EST Office [place] [address] Mily Garcia MD [facility] [place] [address] Hepatic cirrhosis, unspecified hepatic cirrhosis [...] of lymphocytes and ??histiocytes are also noted. Papc-hn-duqhiguf steatosis is present. Trichrome stain ??highlights advanced [...] Vitals: 10/09/22 1117 BP: 135/84 BP Location ([facility]): Left arm Patient Position: Sitting BP [...] (protein 100-120 g per day and calories 6736-4237 kCal per day). Will set up visit with ball mill mixer. #Celiac disease Normal small bowel biopsy 08/2022. Mily Garcia MD Section of Gastroenterology & Hepatology [address] [place] [address] Time spent reviewing records prior to this [...] 09/17/2024 9:00 AM EST Appointment [place] [phone] Mily Garcia MD [facility] [place] [address] 09/17/2024 9:45 AM EST Laboratory Appointment Lab [address] [place] [phone] 09/17/2024 11:30 AM EST Office Visit [place] [phone] Mily Garcia MD [facility] [place] [address] Scheduled Referrals Name Type Priority Associated Diagnoses Orde r Schedule Referral to Nutrition Services Outpatient Referral Routine Hepatic cirrhosis, unspecified hepatic cirrhosis type, unspecified whether ascites present Ordered: 10/09/2022 documented as of this encounter Results * AFP tumor marker (12/25/2022 8:45 AM EDT) Alpha Fetoprotein 4.1 <=8.3 ng/mL [facility] Comment: This result was generated using a Radha Anshu immunoassay. ??Results obtained from other methods or manufacturers cannot be used interchangeably with this method. Blood 12/25/2022 8:45 AM EDT 12/25/2022 9:18 AM EDT Narrative Resulting Agency Comment Spec In Lab Mily Garcia MD CHEMISTRY ORDERABLES Performing Organization Address [facility] Co de Phone Number [facility] [place] [address] * (ABNORMAL) Prothrombin Time (12/25/2022 8:45 AM EDT) Pathologist [facility] Prothrombin Time 13.1(H) 9.4 - 12.5 sec [facility] International Normalization Ratio 1.1 [facility] Comment: An INR <2.0 indicates adequate [...] MD HEMATOLOGY ORDERABLE S Performing Organization Address [facility] Co de Phone Number [facility] [place] [address] * (ABNORMAL) Comprehensive metabolic panel (non-fasting) (12/25/2022 8:45 AM EDT) Pathologist [facility] Glucose 98 65 - 199 mg/dL [facility] Comment:Diabetes: >=200 mg/d L plus symptoms Blood Urea Nitrogen 10 8 - 18 mg/dL [facility] Creatinine 0.59(L) 0.70 - 1.20 mg/dL [facility] Sodium 142 135 - 145 mmol/L [facility] Potassium 4.2 3.5 - 5.0 mmol/L [facility] Comment: Please note: ??Patients with WBC >100,000 may have falsely elevated Potassium levels. ??For accurate Potassium quantification in these patients send serum separator tube (gold top) for subsequent determinations. ??Contact the Clinical Chemistry Laboratory if there are any questions. Chloride 104 98 - 107 mmol/L [facility] Carbon Dioxide 29 22 - 31 mmol/L [facility] Anion Gap 9 5 - 15 mmol/L [facility] Calcium 9.0 8.5 - 10.5 mg/dL [facility] Protein, Total 7.7 6.1 - 8.0 g/dL [facility] Albumin 4.3 3.2 - 5.2 g/dL [facility] Aspartate Aminotransferase 37(H) 0 - 30 unit/L [facility] Alanine Aminotransferase 25 0 - 30 unit/L [facility] Alkaline Phosphatase 89 35 - 105 unit/L [facility] Bilirubin, Total 0.4 0.2 - 1.3 mg/dL [facility] Est Glomerular Filtration Rate 99 >=60 mL/min/1. 73 m?? [facility] Comment: This patient's estimated GFR was [...] In Lab Mily Garcia MD [place] [address] * US Abdomen Limited Hepatology Protocol (12/25/2022 [...] Que Tee MD at 12/25/2022 8:54 AM Electronically signed by: Que Tee MD, [facility] ([phone]), at 12/25/2022 8:54 AM Thank you for letting us participate in the care of this patient. If you are a health care provider and have any questions regarding this report, please contact the number above. For patients who have questions, please contact the health caretaker that requested your imaging first. ?Qeu Tee, Staff Physician Electronically Signed Final Report ?? 12/25/2022 09:01 am Narrative 12/25/2022 9:01 AM EDT Abdominal ? (Signed Final 12/25/2022 09:01 am) PATIENT INFO: ID #: ? [id number] ?: ??[birth year] (67 yrs)(F) Name: ? GENOVEVA A ?Visit Date: 12/25/2022 08:08 am ? KISHA PERFORMED BY: Attending: ?Randal GO, Que Mathis Resident: ? Francisco Javier GO, Ilda Perrin Performed By: ? Baljit Olivas RDMS Referred By: ?MILY GARCIA Location: ? [place] SERVICE(S) PROVIDED: [facility] - Hepatology Protocol - Abdominal ?36328 Limited Survey Single Organ or Quadrant - [id number] INDICATIONS: cirrhosis, HCC screening COMPARISON: US: Abdomen [...] 12/25/2022 09:01 am) PATIENT INFO: ID #: [id number] : 55 (67 yrs)(F) Name: GENOVEVA Zaragoza Visit Date: 12/25/2022 08:08 am KISHA PERFORMED BY: Attending: Que Tee MD Resident: Ilda Mcintyre MD Performed By: Baljit Olivas RDMS Referred By: MILY GARCIA Location: [place] SERVICE(S) PROVIDED: [facility] - Hepatology Protocol - Abdominal 40075 Limited Survey Single Organ or Quadrant - [id number] INDICATIONS: cirrhosis, HCC screening COMPARISON: US: Abdomen [...] Que Tee MD at 12/25/2022 8:54 AM Electronically signed by: Que Tee MD, [facility] ([phone]), at 12/25/2022 8:54 AM Thank you for letting us participate in the care of this patient. If you are a health care provider and have any questions regarding this report, please contact the number above. For patients who have questions, please contact the health caretaker that requested your imaging first. Que Tee, Staff Physician Electronically Signed Final Report 12/25/2022 09:01 am Mily Garcia MD IMG US GEN ORDERABLE S documented in this encounter Visit Diagnoses Diagnosis Hepatic cirrhosis, unspecified hepatic cirrhosis type, unspecified whether ascites present Hepatic cirrhosis, unspecified hepatic cirrhosis type, unspecified whether ascites present documented in this encounter Care Teams Seconds Grader Relationship Specialty Start Date End Date Sanam Bennett APRN [address] [place] [address] PCP - General Family Medicine 09/06/22 documented as of this encounter
--- OUTSIDE RECORDS SUMMARY | 2024-08-18 17:58 | XMS_ITS | Encounter Summary ---
Author Organization [facility] Address [facility] [address] Care Team Providers Care Ag Service Manager Name Role Phone OrenSanam herring MERARI Primary Care Provider Encounter Details Date Type Department Care Team (Late st Contact Info) Description 01/21/2023 External Results [place] [phone] Rebeca Yoon APRN [facility] [place] [address] Social History Tobacco Use Types [...] 09/17/2024 9:00 AM EST Appointment [place] [phone] Mily Garcia MD [facility] [place] [address] 09/17/2024 9:45 AM EST Laboratory Appointment Lab [address] [place] [address] 09/17/2024 11:30 AM EST Office [place] [address] Mily Garcia MD [facility] [place] [address] documented as of this encounter Procedures Procedure Name Priority Date/Time Associated Diagnosis Comments EXTERNAL LAB CBC CMP THYROID RESULTS PANEL Routine 01/21/2023 documented in this encounter Results * CBC / CMP / Thyroid External Results (01/21/2023) Sodium 138 Potassium 3.4 Chloride 103 Carbon Dioxide 31 Blood Urea Nitrogen 13 Creatinine 0.8 Est Glomerular Filtration Rate 80.71 Glucose 123 Calcium 9.2 Protein, Total 8.2 Albumin 3.7 Bilirubin, Total 0.5 Alkaline Phosphatase 89 Aspartate Aminotransferase 36 Alanine Aminotransferase 33 Historical Provider EXTERNAL LAB RICCI MAJANO documented in this encounter Visit Diagnoses Not on filedocumented in this encounter Care Teams Ag Service Manager Relationship Specialty Start Date End Date Sanam Bennett APRN [address] [place] [address] PCP - General Family Medicine 09/06/22 documented as of this encounter
--- OUTSIDE RECORDS SUMMARY | 2024-08-18 17:58 | XMS_ITS | Encounter Summary ---
Author Organization [facility] [place] [address] Care Team Providers Care Salesperson Wigs Name Role Phone OrenSanam herring MERARI Primary Care Provider Encounter Details Date Type Department Care Team (Late st Contact Info) Description 01/16/2023 Orders [place] [phone] Rebeca Yoon APRN [facility] [place] [address] AIHA (autoimmune hemolytic anemia); Autoimmune hepatitis Social [...] 09/17/2024 9:00 AM EST [place] [phone] Mily Garcia MD [facility] [place] [address] 09/17/2024 9:45 AM EST Laboratory Appointment Lab [address] [place] [phone] 09/17/2024 11:30 AM EST Office [place] [address] Mily Garcia MD [facility] [place] [address] documented as of this encounter Visit Diagnoses Diagnosis AIHA (autoimmune hemolytic anemia) Autoimmune hemolytic anemias Autoimmune hepatitis documented in this encounter Care Teams Salesperson Wigs Relationship Specialty Start Date End Date Mandy BennettMERARI solares [address] [place] [address] PCP - General Family Medicine 09/06/22 documented as of this encounter
--- OUTSIDE RECORDS SUMMARY | 2024-08-18 17:58 | XMS_ITS | Encounter Summary ---
Author Organization [facility] Address [facility] [place] [address] Care Team Providers Care Converter Supervisor Name Role Phone Sanam Bennett MERARI Primary Care Provider [phone] Reason for Visit * Auth/Cert (Routine) Specialty [...] Matthew Najera MD [facility] [place] [address] [facility] Referral ID Status Reason Start Date Expiration Date Visits Re quested Visits Authorized [id number] 1 1 Encounter Details Date Type Department Care Team (Late Contact Info) Description 09/10/2022 2:56 PM EST Anesthesia [place] [address] Matthew Oneal DO [facility] [place] [address] Tam Cohen CRNA [facility] [place] [address] Anesthesia Record Procedure Summary Procedure Name [...] 1425; median cubital vein (antecubital fossa), left; jiil-jsu-glptmy catheter system; 22 gauge; k arturo daniels; [...] Procedure Summary Date: 09/10/22 Room / Location: [facility] ENDO 2 / [facility]COPY Anesthesia Start: 1456 Anesthesia Stop: 1551 [...] All Anesthesia Providers: Anesthesiologist: Matthew Oneal DO CHIEF ORTHOPTIST: Lacho Jenkins CRNA; Tam Cohen CRNA Vitals Value Taken Time BP 105/68 09/10/22 1600 Temp Pulse Resp 20 09/10/22 1548 SpO2 98 % 09/10/22 1608 Pain Level 0 09/10/22 1548 Vitals shown include unvalidated device data. Patient Location: PACU/[facility] Level of Consciousness: Conscious but Sleepy Pain [...] 2014 ??? YAG CAPSULOTOMY Right 03/13/2019 Dr Aabd Social History Tobacco Use ??? Smoking status: [...] risks discussed with patient. Plan discussed with CHIEF ORTHOPTIST. Anesthesia Screening documented in this encounter Plan of Treatment Upcoming Encounters Date Type Department Care Team (Late st Contact Info) Description 09/17/2024 9:00 AM EST [place] [phone] Mily Garcia MD [facility] [place] [address] 09/17/2024 9:45 AM EST Laboratory Appointment Lab [address] [place] [phone] 09/17/2024 11:30 AM EST Office [place] [phone] Mily Garcia MD [facility] [place] [address] documented as of this encounter Visit Diagnoses [...] mg documented in this encounter Care Teams Converter Supervisor Relationship Specialty Start Date End Date Sanam Bennett APRN [facility] [address] [place] [address] PCP - General Family Medicine 09/06/22 documented as of this encounter
--- OUTSIDE RECORDS SUMMARY | 2024-08-18 17:58 | XMS_ITS | Encounter Summary ---
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 [place] [address] [facility] [place] [address] Referral ID Status Reason Start Date Expiration Date V isits Requested Visits Authorized [id number] Closed Continuity of Care 12/25/2022 12/25/2023 1 1 Encounter Details Date Type Department Care Team (Late st Contact Info) Description 12/25/2022 10:45 AM EDT Office Visit [place] [phone] Rebeca Yoon APRN 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 Hyfh-fu-wnljqxbz steatosis is present. Trichrome stain ??highlights advanced [...] Vitals: 12/25/22 1120 BP: 124/67 BP Location ([facility]): Left arm Patient Position: Sitting BP Cuff Sizes: Adult (25-34 cm) Pulse: 61 Weight: 77.2 kg (170 lb 3.2 oz) Height: 154.9 cm (5' 1) Body mass index is 32.16 kg/m??. Exam: Alert, and oriented. Easily converses with this mortgage underwriter. Comfortable wob in ra. Skin and sclera [...] questions. I have referred her to our state manager here at which I thinkwill be helpful [...] (protein 100-120 g per day and calories 5763-1341 kCal per day). -Reviewed dietary sources of protein today. High Protein foods: try to eat 5-6 servings of these per day Beef, chicken, fish Beans, Lentils, peanut butter Pashto and regular yogurt Cheese, eggs Boost, Ensure shakes Protein powder in a smoothie of your choice. Granola bars with added protein-watch salt. #Celiac disease -Normal small bowel biopsy 08/2022. -Continue strict gluten free diet. Rebeca Yoon APRN Section of Gastroenterology & Hepatology [address] [place] [address] Time spent reviewing records prior to this [...] 09/17/2024 9:00 AM EST Appointment [place] [address] Mily Garcia MD [facility] [place] [address] 09/17/2024 9:45 AM EST Laboratory Appointment Lab [address] [place] [phone] 09/17/2024 11:30 AM EST Office Visit [place] [address] Mily Garcia MD 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 Ordered: 12/25/2022 documented as of this encounter Results * (ABNORMAL) Prothrombin Time (06/28/2023 9:24 AM EDT) Prothrombin Time 12.9(H) 9.4 - 12.5 sec [facility] International Normalization Ratio 1.1 [facility] Comment: An INR <2.0 indicates [...] Agency Comment Spec In Lab Rebeca Yoon COMMUNICATIONS CLERK HEMATOLOGY ORDERAB LES [facility] [place] [address] * (ABNORMAL) Comprehensive metabolic panel (non-fasting) (06/28/2023 9:24 AM EDT) Glucose 104 65 - 199 mg/dL [facility] Comment:Diabetes: >=200 mg/d L plus symptoms Blood Urea Nitrogen 29(H) 8 - 18 mg/dL [facility] Creatinine 0.75 0.70 - 1.20 mg/dL [facility] Sodium 140 135 - 145 mmol/L [facility] Potassium 4.9 3.5 - 5.0 mmol/L [facility] Comment: Please note: ??Patients with WBC >100,000 may have falsely elevated Potassium levels. ??For accurate Potassium quantification in these patients send serum separator tube (gold top) for subsequent determinations. ??Contact the Clinical Chemistry Laboratory if there are any questions. Chloride 103 98 - 107 mmol/L [facility] Carbon Dioxide 27 22 - 31 mmol/L [facility] Anion Gap 10 5 - 15 mmol/L [facility] Calcium 9.4 8.5 - 10.5 mg/dL [facility] Protein, Total 7.9 6.1 - 8.0 g/dL [facility] Albumin 4.4 3.2 - 5.2 g/dL [facility] Aspartate Aminotransferase 21 0 - 30 unit/L [facility] Alanine Aminotransferase 14 0 - 30 unit/L [facility] Alkaline Phosphatase 87 35 - 105 unit/L [facility] Bilirubin, Total 0.3 0.2 - 1.3 mg/dL [facility] Est Glomerular Filtration Rate 87 >=60 mL/min/1. 73 m?? 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
--- OUTSIDE RECORDS SUMMARY | 2024-08-18 17:58 | XMS_ITS | Encounter Summary ---
Author Organization [place] [address] Care Team Providers Care Log Peeler Name Role Phone Alireza Ojeda DO Primary Care Provider Reason for Visit * Reason Comments Post Op Encounter Details Date Type Department Care Team (Late st Contact Info) Description 03/20/2019 3:45 PM EDT Office [place] [address] Dinora Abad MD [facility] [place] [address] PCO (posterior capsule opacification), bilateral Social History [...] 09/17/2024 9:00 AM EST Appointment [place] [address] Mily Garcia MD [facility] [place] [address] 09/17/2024 9:45 AM EST Laboratory Appointment Lab [address] [place] [address] 09/17/2024 11:30 AM EST Office Visit [place] [address] Mily Garcia MD [facility] [place] [address] documented as of this encounter Procedures Procedure [...] bilateral documented in this encounter Care Teams Log Peeler Relationship Specialty Start Date End Date Alireza Ojeda DO [address] [facility] [address] [place] [address] PCP - General 07/16/11 09/05/22 documented as of this encounter
--- OUTSIDE RECORDS SUMMARY | 2024-08-18 17:58 | XMS_ITS | Encounter Summary ---
Author Organization [facility] Address [facility] [place] [address] Care Team Providers Care Joinery Machinist Name Role Phone Sanam Bennett MERARI Primary Care Provider [phone] Reason for Visit * Auth/Cert (Routine) Specialty [...] ENDOSCOPIC ULTRASOUND COLONOSCOPY, DIAGNOSTIC Matthew Najera MD [facility] [place] [address] [facility] Referral ID Status Reason Start Date Expiration Date Visits Re quested Visits Authorized [id number] 1 1 Encounter Details Date Type Department Care Team (Latest Contact Info) Description 09/10/2022 2:03 PM EST - 09/10/2022 5:42 PM EST Hospital Encounter [place] [address] [facility] [place] [address] Discharge Disposition: Home Social History Tobacco Use [...] the day after the procedure, use an epbm-vcw-wxnwvta spray to numb your throat. Sucking on [...] occurs, please contact your Doctor. Please call [phone] before 8pm Mon-Fri with problems, questions or concerns. If you call after 8pm or on weekends, call the Hospital at [phone] and ask to speak to the Hospital Intern dealer relationship manager and the spin table operator will contact that person for you. When should you call for help? Call [phone] anytime you think you may need emergency [...] any problems. Where can you learn more? [facility] View your After Visit Summary and more online at [email or web address] If you would like to provide feedback about your hospital experience, please call the Office of Patient and Family Relations at . If you have received this After Visit Summary in error, please immediately return it in person to the department, or notify the [facility] Privacy Office by calling toll free at between the hours of 8AM and 5PM to arrange for our retrieval of the documents at no cost to you. Content Version: 12.2 ?? 2528-3412 [employer]. Care instructions adapted under license by [facility]. If you have questions about a medical condition or this instruction, always ask your healthcare professional. [employer] disclaims any warranty or liability for your [...] occurs, please contact your Doctor. Please call [phone] before 8pm Mon-Fri with problems, questions or concerns. If you call after 8pm or on weekends, call the Hospital at [phone] and ask to speak to the Hospital Intern dealer relationship manager and the spin table operator will contact that person for you. [...] any problems. Where can you learn more? [facility] View your After Visit Summary and more online at [email or web address] If you would like to provide feedback about your hospital experience, please call the Office of Patient and Family Relations at . If you have received this After Visit Summary in error, please immediately return it in person to the department, or notify the [facility] Privacy Office by calling toll free at between the hours of 8AM and 5PM to arrange for our retrieval of the documents at no cost to you. Content Version: 12.2 ?? 4859-3093 [employer]. Care instructions adapted under license by [facility]. If you have questions about a medical condition or this instruction, always ask your healthcare professional. [employer] disclaims any warranty or liability for your [...] occurs, please contact your Doctor. Please call [phone] before 8pm Mon-Fri with problems, questions or concerns. If you call after 8pm or on weekends, call the Hospital at [phone] and ask to speak to the Hospital Intern dealer relationship manager and the spin table operator will contact that person for you. [...] any problems. Where can you learn more? [facility] View your After Visit Summary and more online at [email or web address] If you would like to provide feedback about your hospital experience, please call the Office of Patient and Family Relations at . If you have received this After Visit Summary in error, please immediately return it in person to the department, or notify the [facility] Privacy Office by calling toll free at between the hours of 8AM and 5PM to arrange for our retrieval of the documents at no cost to you. Content Version: 12.2 ?? 9915-4615 [employer]. Care instructions adapted under license by [facility]. If you have questions about a medical condition or this instruction, always ask your healthcare professional. [employer] disclaims any warranty or liability for your [...] 09/17/2024 9:00 AM EST [place] [phone] [facility] [place] [address] 09/17/2024 9:45 AM EST Laboratory Appointment Lab [address] [place] [phone] 09/17/2024 11:30 AM EST Office [place] [phone] [facility] [place] [place] [address] documented as of this encounter Procedures Procedure Name Priority Date/Time Associated Diagnosis Comments SPECIMEN TO PATHOLOGY Routine 09/10/2022 3:42 PM EST SPECIMEN TO PATHOLOGY Routine 09/10/2022 3:42 PM EST SURGICAL PATHOLOGY REPORT Routine 09/10/2022 3:35 PM EST Needle Biopsy Liver (95265) 09/10/2022 2:57 PM EST Elevated liver enzymes DOHERYT (nonalcoholic steatohepatitis) Upgi Endoscopy W/Us Fn Bx (18510) 09/10/2022 2:57 PM EST Elevated liver enzymes DOHERTY (nonalcoholic steatohepatitis) Colonoscopy, Diagnostic (37020) 09/10/2022 2:57 PM EST Elevated liver enzymes DOHERTY (nonalcoholic steatohepatitis) Endoscopic Us Exam, Esoph ([id number]) 09/10/2022 2:57 PM EST Elevated liver enzymes DOHERTY (nonalcoholic steatohepatitis) UPPER EUS-ENDOSCOPIC ULTRASOUND Routine 09/10/2022 2:48 PM EST COLONOSCOPY Routine 09/10/2022 2:46 PM EST documented in this encounter Results * Specimen to Pathology (09/10/2022 3:42 PM EST) AP Specimen 09/10/2022 3:42 PM EST 09/10/2022 3:42 PM EST Narrative [facility] - 09/10/2022 3:42 PM EST Specimen requisition ordered. ??Separate Pathology report to follow Matthew Najera MD PATHOLOGY/CYTOLOGY ORDERABLES Performing Organization Address City/[facility] Co de Phone Number [facility] [place] [address] * Specimen to Pathology (09/10/2022 3:42 PM EST) AP Specimen 09/10/2022 3:42 PM EST 09/10/2022 3:42 PM EST Narrative [facility] - 09/10/2022 3:42 PM EST Specimen requisition ordered. ??Separate Pathology report to follow Matthew Najera MD PATHOLOGY/CYTOLOGY ORDERABLES [facility] [place] [id number] * Surgical Pathology Report (09/10/2022 3:35 PM EST) Final Diagnosis [id number] ? Location: 4T; EA06; A The signing [...] of lymphocytes and histiocytes are also noted. Ulzw-it-xisyykor steatosis is present. Trichrome stain highlights advanced [...] Dashawn Verified: ??09/18/2022 12:15 ??Pathologist Performed at: ??-[facility] Dept. of [place]ology, [place] [address] Assembler Cards And Announcements: Dagmar Duong MD, FCAP, ??CLIA Certificate: [id number] ADDITIONAL STUDIES Whole slide scan: B1, trichrome [...] labeled B1. ??pps 09/18/2022 12:15 PM EST [facility] GI Biopsy 09/10/2022 3:35 PM EST 09/10/2022 3:35 PM EST GI Biopsy 09/10/2022 3:35 PM EST 09/10/2022 3:35 PM EST Matthew Najera MD PATHOLOGY/CYTOLOGY ORDERABLES Performing Organization Address [facility]/State/[facility] Co de Phone Number [facility] [place] [address] [facility] [place] [address] * UPPER EUS-ENDOSCOPIC ULTRASOUND (09/10/2022 2:48 PM EST) UPPER ENDOSCOPIC ULTRASOUND [facility] Endoscopy Procedure Date: 09/10/2022 2:48 PM ? Patient Name: Genoveva Whiting ? Date of : 1955 ? Age: 67 ? Order #: [id number] ? Instrument Name: [id number]- [id number] ? Procedure: ? Upper EUS Indications: ? [...] * COLONOSCOPY (09/10/2022 2:46 PM EST) COLONOSCOPY [facility] Endoscopy Procedure Date: 09/10/2022 2:46 PM ? Patient Name: Genoveva Whiting ? Date of : 1955 ? Age: 67 ? Order #: [id number] ? Instrument Name: [id number]- [id number] ? Procedure: ? Colonoscopy Indications: ? Family [...] RN) documented in this encounter Care Teams Joinery Machinist Relationship Specialty Start Date End Date Sanam Bennett APRN [address] [place] [address] [address] [place] [address] PCP - General Family Medicine 09/06/22 documented as of this encounter
--- OUTSIDE RECORDS SUMMARY | 2024-08-18 17:58 | XMS_ITS | Encounter Summary ---
Author Organization [facility] Address [facility] [place] [address] Care Team Providers Care Abrasive Water Jet Cutter Operator Name Role Phone Sanam Bennett MERARI Primary Care Provider [phone] Reason for Visit * Auth/Cert (Routine) Specialty [...] ENDOSCOPIC ULTRASOUND COLONOSCOPY, DIAGNOSTIC Matthew Najera MD [facility] [place] [address] [facility] Referral ID Status Reason Start Date Expiration Date Visits Re quested Visits Authorized [id number] 1 1 Encounter Details Date Type Department Care Team (Late st Contact Info) Description 09/10/2022 2:30 PM EST - 09/10/2022 4:00 PM EST [place] [address] Matthew Najera MD [facility] [place] [address] UPPER EUS- ENDOSCOPIC ULTRASOUND (WRVU 3.47) Social [...] the day after the procedure, use an pztb-fnb-dfsjgrl spray to numb your throat. Sucking on [...] occurs, please contact your Doctor. Please call [phone] before 8pm Mon-Fri with problems, questions or concerns. If you call after 8pm or on weekends, call the Hospital at [phone] and ask to speak to the Print Shop Helper station examiner and the metal milling machine operator will contact that person for [...] any problems. Where can you learn more? [facility] View your After Visit Summary and more online at [email or web address] If you would like to provide feedback about your hospital experience, please call the Office of Patient and Family Relations at . If you have received this After Visit Summary in error, please immediately return it in person to the department, or notify the [facility] Privacy Office by calling toll free at between the hours of 8AM and 5PM to arrange for our retrieval of the documents at no cost to you. Content Version: 12.2 ?? 6218-5569 [employer] Care instructions adapted under license by [facility]. If you have questions about a medical condition or this instruction, always ask your healthcare professional. [employer] disclaims any warranty or liability for your [...] occurs, please contact your Doctor. Please call [phone] before 8pm Mon-Fri with problems, questions or concerns. If you call after 8pm or on weekends, call the Hospital at [phone] and ask to speak to the Print Shop Helper station examiner and the metal milling machine operator will contact that person for [...] any problems. Where can you learn more? [facility] View your After Visit Summary and more online at [email or web address] If you would like to provide feedback about your hospital experience, please call the Office of Patient and Family Relations at . If you have received this After Visit Summary in error, please immediately return it in person to the department, or notify the [facility] Privacy Office by calling toll free at between the hours of 8AM and 5PM to arrange for our retrieval of the documents at no cost to you. Content Version: 12.2 ?? 7703-7215 [employer] Care instructions adapted under license by [facility]. If you have questions about a medical condition or this instruction, always ask your healthcare professional. [employer] disclaims any warranty or liability for your [...] occurs, please contact your Doctor. Please call [phone] before 8pm Mon-Fri with problems, questions or concerns. If you call after 8pm or on weekends, call the Hospital at [phone] and ask to speak to the Print Shop Helper station examiner and the metal milling machine operator will contact that person for [...] any problems. Where can you learn more? [facility] View your After Visit Summary and more online at [email or web address] If you would like to provide feedback about your hospital experience, please call the Office of Patient and Family Relations at . If you have received this After Visit Summary in error, please immediately return it in person to the department, or notify the [facility] Privacy Office by calling toll free at between the hours of 8AM and 5PM to arrange for our retrieval of the documents at no cost to you. Content Version: 12.2 ?? 4977-6013 [employer] Care instructions adapted under license by [facility]. If you have questions about a medical condition or this instruction, always ask your healthcare professional. [employer] disclaims any warranty or liability for your [...] 09/17/2024 9:00 AM EST [place] [phone] Mily Garcia MD [facility] [place] [address] 09/17/2024 9:45 AM EST Laboratory Appointment Lab [address] [place] [phone] 09/17/2024 11:30 AM EST Office [place] [phone] Mily Garcia MD [facility] [place] [address] documented as of this encounter Procedures Procedure Name Priority Date/Time Associated Diagnosis Comments SPECIMEN TO PATHOLOGY Routine 09/10/2022 3:42 PM EST SPECIMEN TO PATHOLOGY Routine 09/10/2022 3:42 PM EST SURGICAL PATHOLOGY REPORT Routine 09/10/2022 3:35 PM EST Needle Biopsy Liver (10377) 09/10/2022 2:57 PM EST Elevated liver enzymes DOHERTY (nonalcoholic steatohepatitis) Upgi Endoscopy W/Us Fn Bx (79716) 09/10/2022 2:57 PM EST Elevated liver enzymes DOHERTY (nonalcoholic steatohepatitis) Colonoscopy, Diagnostic (67102) 09/10/2022 2:57 PM EST Elevated liver enzymes DOHERTY (nonalcoholic steatohepatitis) Endoscopic Us Exam, Esoph ([id number]) 09/10/2022 2:57 PM EST Elevated liver enzymes DOHERTY (nonalcoholic steatohepatitis) UPPER EUS-ENDOSCOPIC ULTRASOUND Routine 09/10/2022 2:48 PM EST COLONOSCOPY Routine 09/10/2022 2:46 PM EST documented in this encounter Results * Specimen to Pathology (09/10/2022 3:42 PM EST) AP Specimen 09/10/2022 3:42 PM EST 09/10/2022 3:42 PM EST Narrative [facility] - 09/10/2022 3:42 PM EST Specimen requisition ordered. ??Separate Pathology report to follow Matthew Najera MD PATHOLOGY/CYTOLOGY ORDERABLES [facility] [place] [place] [address] * Specimen to Pathology (09/10/2022 3:42 PM EST) AP Specimen 09/10/2022 3:42 PM EST 09/10/2022 3:42 PM EST Narrative [facility] - 09/10/2022 3:42 PM EST Specimen requisition ordered. ??Separate Pathology report to follow Matthew Najera MD PATHOLOGY/CYTOLOGY ORDERABLES [facility] [place] [address] * Surgical Pathology Report (09/10/2022 3:35 PM EST) Final Diagnosis [id number] ? Location: 4T; EA06; A The signing [...] of lymphocytes and histiocytes are also noted. Zjxj-ss-kbrhqsse steatosis is present. Trichrome stain highlights advanced [...] Dashawn Verified: ??09/18/2022 12:15 ??Pathologist Performed at: ??-[facility] Dept. of [place]ology, [place] [address] Application Consultant: Dagmar Duong MD, FCAP, ??CLIA Certificate: [id number] ADDITIONAL STUDIES Whole slide scan: B1, trichrome [...] labeled B1. ??pps 09/18/2022 12:15 PM EST [facility] GI Biopsy 09/10/2022 3:35 PM EST 09/10/2022 3:35 PM EST GI Biopsy 09/10/2022 3:35 PM EST 09/10/2022 3:35 PM EST Matthew Najera MD PATHOLOGY/CYTOLOGY ORDERABLES Performing Organization Address City/State/[facility] Co de Phone Number [facility] [place] [address] [facility] [place] [address] * UPPER EUS-ENDOSCOPIC ULTRASOUND (09/10/2022 2:48 PM EST) UPPER ENDOSCOPIC ULTRASOUND [facility] Endoscopy Procedure Date: 09/10/2022 2:48 PM ? Patient Name: Genoveva Whiting ? Date of : 1955 ? Age: 67 ? Order #: [id number] ? Instrument Name: [id number]- [id number] ? Procedure: ? Upper EUS Indications: ? [...] * COLONOSCOPY (09/10/2022 2:46 PM EST) COLONOSCOPY [facility] Endoscopy Procedure Date: 09/10/2022 2:46 PM ? Patient Name: Genoveva Whiting ? Date of : 1955 ? Age: 67 ? Order #: [id number] ? Instrument Name: [id number]- [id number] ? Procedure: ? Colonoscopy Indications: ? Family [...] PM PROVATION 09/10/2022 2:46 PM EST Genoveva aMher MD GENERAL SURGICAL ORD ERABLES PROVATION documented [...] RN) documented in this encounter Care Teams Abrasive Water Jet Cutter Operator Relationship Specialty Start Date End Date Sanam Bennett APRN [address] [place] [address] PCP - General Family Medicine 09/06/22 documented as of this encounter
--- OUTSIDE RECORDS SUMMARY | 2024-08-18 17:59 | XMS_ITS | Encounter Summary ---
Author Organization [facility] [place] [address] Care Team Providers Care Foundation Drill Operator Name Role Phone Alireza Ojeda DO Primary Care Provider Encounter Details Date Type Department Care Team (Late st Contact Info) Description 05/18/2013 Telephone [place] [address] Jo-Ann Grubbs APRN [facility] [place] [address] Social History Tobacco Use Types Packs/Day Years [...] 09/17/2024 9:00 AM EST Appointment [place] [address] Mily Garcia MD [facility] [place] [address] 09/17/2024 9:45 AM EST Laboratory Appointment Lab [address] [place] [phone] 09/17/2024 11:30 AM EST Office Visit [place] [phone] Mily Garcia MD [facility] [place] [address] documented as of this encounter Visit Diagnoses Not on filedocumented in this encounter Care Teams Foundation Drill Operator Relationship Specialty Start Date End Date Alireza Ojeda DO [address] [place] [address] PCP - General 07/16/11 09/05/22 documented as of this encounter
--- OUTSIDE RECORDS SUMMARY | 2024-08-18 17:59 | XMS_ITS | Encounter Summary ---
Author Organization [facility] Address [address] [place] [address] Care Team Providers Care Sheet Manager Name Role Phone Alireza Ojeda DO Primary Care Provider +1- [phone] Encounter Details Date Type Department Care Team (Late st Contact Info) Description 06/27/2022 Lab Requisition [facility] Pathology & Laboratory Medicine - [facility] [address] [place] [address] Outr Resulting Lab, Provider Social History Tobacco Use Types Packs/Day Years Used Date Smoking Tobacco: Never Assessed Interpersonal Safety Answer Date Record ed Physically Hurt Never 05/01/2020 Verbally Threaten Not on file 05/01/2020 Comments Unknown Sex and Gender Information Value Date Recorded Sex Assigned at Not on file Legal Sex Female 18:45 EST Gender Identity Not on file Sexual Orientation [...] 50.2(L) 55.8 - 66.1 % 06/28/2022 12:53 [facility] Albumin g/dL 4.2 3.6 - 5.2 g/dL 06/28/2022 12:53 [facility] Alpha-1 % 3.4 2.9 - 4.9 % 06/28/2022 12:53 [facility] Alpha-1 g/dL 0.30 0.15 - 0.40 g/dL 06/28/2022 12:53 [facility] Alpha-2 % 9.4 7.1 - 11.8 % 06/28/2022 12:53 [facility] Alpha-2 g/dL 0.80 0.50 - 1.00 g/dL 06/28/2022 12:53 [facility] Beta % 10.0 8.4 - 13.1 % 06/28/2022 12:53 [facility] Beta g/dL 0.80 0.60 - 1.20 g/dL 06/28/2022 12:53 [facility] Gamma % 27.0(H) 11.1 - 18.8 % 06/28/2022 12:53 [facility] Gamma g/dL 2.20(H) 0.60 - 1.60 g/dL 06/28/2022 12:53 [facility] SPEP Comment No apparent monoclonal protein seen on serum electrophoresis 06/28/2022 12:53 [facility] Comment:See scanned/suppleme ntary report. Total Protein 8.3(H) 6.3 - 8.2 g/dL 06/28/2022 12:53 [facility] Blood VENOUS BLOOD / Unknown 06/27/2022 13:40 EDT 06/27/2022 21:17 EDT us Provider Outr Resulting Lab CHEMISTRY & BLOOD GA S ORDERABLES Final Result [facility] [address] [place] [address] * PROTEIN, TOTAL (06/27/2022 13:40 EDT) Blood VENOUS BLOOD / Unknown 06/27/2022 13:40 EDT 06/27/2022 21:17 EDT us Provider Outr Resulting Lab CHEMISTRY & BLOOD GA S ORDERABLES Final Result [facility] [address] [place] [address] documented in this encounter Visit Diagnoses Not on filedocumented in this encounter Care Teams Sheet Manager Relationship Specialty Start Date End Date Alireza Ojeda DO [address] [place] [address] PCP - General 12/14/15 documented as of this encounter
--- OUTSIDE RECORDS SUMMARY | 2024-08-18 17:59 | XMS_ITS | Encounter Summary ---
Author Organization [facility] Address [address] [place] [address] Care Team Providers Care Cook Syrup Maker Name Role Phone Unknown, Provider Primary Care Provider Unava ilable Encounter Details Date Type Department Care Team (Late st Contact Info) Description 07/07/2012 Results Only [facility] Services - [facility] [address] [place] [address] Lauren Nuno, HAN Social History Tobacco Use Types Packs/Day Years Used Date Smoking Tobacco: Never Assessed Comments Unknown Sex and Gender Information Value [...] ? GENOVEVA BEARD ? Accession #: ? [id number] : ? 1955 (Age: 57) ??F ?Collect Date: ? 07/07/2012 Location: ? [facility] ? Receive Date: ? 07/08/2012 Provider: ?LAUREN NUNO SECURITY ADVISOR Copy to: ? Specimen/Source: ?Pap Test, Vagina, [...] End of Report JESSA DACOSTA 07/07/2012 07/08/2012 us Lauren Nuno NP PATHOLOGY ORDERABLES Final Re sult Performing Organization Address City/State/[facility] Co de Phone Number JESSA DACOSTA [address] [place] [address] documented in this encounter Visit Diagnoses Not on filedocumented in this encounter Care Teams Cook Syrup Maker Relationship Specialty Start Date End Date Unknown, Provider, PCP - General 04/04/09 12/13/15 documented as of this encounter
--- OUTSIDE RECORDS SUMMARY | 2024-08-18 17:59 | XMS_ITS | Referral Summary ---
Author Organization [facility] Address [address] [place] [address] Care Team Providers Care Rigging Slinger Name Role Phone Alireza Ojeda DO Primary Care Provider +1- [phone] Social History Tobacco Use Types Packs/Day Years [...] C Antibody Negative Negative 01/30/2022 10:47 EDT [facility] Blood VENOUS BLOOD / Unknown 01/29/2022 12:18 EDT 01/29/2022 20:43 EDT us Provider Outr Resulting Lab CHEMISTRY & BLOOD GA S ORDERABLES Final Result [facility] [address] [place] [address] from Last 3 Months or Most Recently Relevant to Health Maintenance Care Teams Rigging Slinger Relationship Specialty Start Date End Date Alireza Ojeda DO [address] [place] [address] [facility] - General 12/14/15
--- OUTSIDE RECORDS SUMMARY | 2024-08-18 17:59 | XMS_ITS | Encounter Summary ---
Author Organization [facility] Address [address] [place] [address] Care Team Providers Care Marketing Database Analyst Name Role Phone Alireza Ojeda DO Primary Care Provider +1- [phone] Encounter Details Date Type Department Care Team (Late st Contact Info) Description 01/29/2022 Lab Requisition [facility] Pathology & Laboratory Medicine - [facility] [address] [place] [address] Outr Resulting Lab, Provider Social History Tobacco [...] 4th Generation Negative Negative 01/30/2022 10:37 EDT [facility] Comment:If acute HIV-1 infec tion is suspected in a high risk patient, submit plasma specimen for HIV-1 RNA quantitation test. Blood VENOUS BLOOD / Unknown 01/29/2022 12:18 EDT 01/29/2022 20:43 EDT Narrative [facility] - 01/30/2022 10:37 EDT Fourth Generation assay performed on the Siemens Videoliciousaur XPT. us Provider Outr Resulting Lab IMMUNOLOGY AND SEROL OGY ORDERABLES Final Result [facility] [address] [place] [address] documented in this encounter Visit Diagnoses Not on filedocumented in this encounter Care Teams Marketing Database Analyst Relationship Specialty Start Date End Date Alireza Ojeda DO [address] [place] [address] PCP - General 12/14/15 documented as of this encounter
--- OUTSIDE RECORDS SUMMARY | 2024-08-18 17:59 | XMS_ITS | Encounter Summary ---
Author Organization [facility] Address [address] [place] [address] Care Team Providers Care Anthropology Lecturer Name Role Phone Alireza jOeda DO Primary Care Provider +1- [phone] Encounter Details Date Type Department Care Team (Late st Contact Info) Description 06/22/2022 Lab Requisition [facility] Pathology & Laboratory Medicine - [facility] [address] [place] [address] Outr Resulting Lab, Provider Social History Tobacco [...] Surface Ag Negative Negative 06/25/20 11:39 EDT [facility] Hep B Surface Ab, Quantitative <3.1 See Note mIU/mL 06/25/2022 11:39 EDT [facility] Comment: Reference Range for Hep B Surface Ab, Quant: Positive: >= 10.0 mIU/mL Negative: ??< 10.0 mIU/mL Patient is presumed to not be immune to infection with Hepatitis B Virus. Hep B Surface Ab, Qualitative Negative See Note 06/25/2022 11:39 EDT [facility] Comment: Reference Range for Hep B Surface Ab, Qual: Unvaccinated: ??Negative Vaccinated: ??Positive Hepatitis B Core Ab, Total Negative Negative 06/25/2022 11:39 EDT [facility] Hep C Antibody Negative Negative 06/25/2022 11:39 EDT [facility] Blood VENOUS BLOOD / Unknown 06/22/2022 13:47 EDT 06/22/2022 22:05 EDT us Provider Outr Resulting Lab CHEMISTRY & BLOOD GA S ORDERABLES Final Result [facility] [address] [place] [address] documented in this encounter Visit Diagnoses Not on filedocumented in this encounter Care Teams Anthropology Lecturer Relationship Specialty Start Date End Date Alireza Ojeda DO [address] [place] [address] PCP - General 12/14/15 documented as of this encounter
--- OUTSIDE RECORDS SUMMARY | 2024-08-18 17:59 | XMS_ITS | Encounter Summary ---
Author Organization [facility] [place] [address] Care Team Providers Care Cyber Intelligence Analyst Name Role Phone Alireza Ojeda DO Primary Care Provider Reason for Visit * Reason Comments Skin Check Encounter Details Date Type Department Care Team (Late st Contact Info) Description 07/16/2011 10:45 AM EDT Office Visit Dermatology [address] [place] [address] [address] [place] [address] Sergo Valle MD [address] [place] [address], [facility] [place] [address] History of basal cell carcinoma (Primary Dx) [...] shoulder, right lateral eyebrow previously treated in [place]. 3. History of BCCa, right medial cheek, 07/2009 per [facility]. Rosalinda follows for a yearly skin [...] 09/17/2024 9:00 AM [place] [address] Mily Garcia MD [facility] [place] [address] 09/17/2024 9:45 AM EST Laboratory Appointment Lab [address] [place] [address] 09/17/2024 11:30 AM EST Office [place] [address] Mily Garcia MD [facility] [place] [address] documented as of this encounter Visit Diagnoses Diagnosis History of basal cell carcinoma- Primary Personal history of other malignant neoplasm of skin documented in this encounter Care Teams Cyber Intelligence Analyst Relationship Specialty Start Date End Date Alireza Ojeda DO [address] [place] [address] PCP - General 07/16/11 09/05/22 documented as of this encounter
--- OUTSIDE RECORDS SUMMARY | 2024-08-18 17:59 | XMS_ITS | Encounter Summary ---
Author Organization [facility] Address [address] [place] [address] Care Team Providers Care Restaurant Crew Member Name Role Phone Alireza Ojeda DO Primary Care Provider +1- [phone] Encounter Details Date Type Department Care Team (Late st Contact Info) Description 08/03/2016 Results Only [facility]- [facility] [phone] Uziel Andrade, DO [address] [place] [address] Social History Tobacco Use Types [...] ? GENOVEVA BEARD ? Accession #: ? [id number] ? : ? 1955 (Age: 61) ??F ? Collect Date: ? 08/03/2016 ? Location: ? [facility] ? Receive Date: ? 08/03/2016 ? Provider: UZIEL ANDRADE DO Copy to: ALIREZA OJEDA DO ? Final Pathologic Diagnosis: COLON, ASCENDING, [...] (ASCP) 08/06/2016 8:36 AM End of Report [facility] 08/03/2016 6:43 EDT 08/03/2016 6:43 EDT us Uziel Andrade DO PATHOLOGY ORDERABLES Final Res ult [facility] [address] [place] [address] documented in this encounter Visit Diagnoses Not on filedocumented in this encounter Care Teams Restaurant Crew Member Relationship Specialty Start Date End Date Alireza Ojeda DO [address] [place] [address] PCP - General 12/14/15 documented as of this encounter
--- OUTSIDE RECORDS SUMMARY | 2024-08-18 17:59 | XMS_ITS | Encounter Summary ---
Author Organization [facility] Address [address] [place] [address] Care Team Providers Care House Carpenter Helper Name Role Phone Alireza Oejda DO Primary Care Provider +1- [phone] Encounter Details Date Type Department Care Team (Late st Contact Info) Description 04/06/2016 Results Only [facility]- [facility] [phone] Ashley Britt, [facility] [address] [place] [address] [place] [address] Social History Tobacco Use Types [...] ? GENOVEVA BEARD ? Accession #: ? [id number] : ? 1955 (Age: 61) ??F ?Collect Date: ? 04/06/2016 Location: ? [facility] ? Receive Date: ? 04/09/2016 Provider: ?ASHLEY BRITT FLAT SORTER PROCESSOR Copy to: ?ALIREZA OJEDA DO ? Specimen/Source: [...] ??04/19/2016 12:17 End of Report [facility] 04/06/2016 04/09/2016 us Ashley Britt FLAT SORTER PROCESSOR PATHOLOGY ORDERABLES Final R esult [facility] [address] [place] [address] documented in this encounter Visit Diagnoses Not on filedocumented in this encounter Care Teams House Carpenter Helper Relationship Specialty Start Date End Date Alireza Ojeda DO [address] [place] [address] PCP - General 12/14/15 documented as of this encounter
--- OUTSIDE RECORDS SUMMARY | 2024-08-18 17:59 | XMS_ITS | Encounter Summary ---
Author Organization [facility] [place] [address] Care Team Providers Care Lifestyle Block Farmer Name Role Phone Sanam Bennett APRN Primary Care Provider [phone] Encounter Details Date Type Department Care Team (Late st Contact Info) Description 08/24/2009 Orders Only Dermatology at [place] [address] [facility] [place] [address] Sergo Valle MD [address] [facility], [facility] [place] [address] Social History Tobacco Use Types Packs/Day Years [...] 09/17/2024 9:00 AM EST Appointment [place] [address] [facility] [place] [address] 09/17/2024 9:45 AM EST Laboratory Appointment Lab [address] [place] [address] 09/17/2024 11:30 AM EST Office Visit [place] [address] [facility] [place] [address] documented as of this encounter Procedures Procedure Name Priority Date/Time Associated Diagnosis Comments SURGICAL PATHOLOGY REPORT Routine 08/24/2009 6:07 PM EST documented in this encounter Results * Surgical Pathology Report (08/24/2009 6:07 PM EST) Surgical Pathology Report [id number] ? Location: [facility] The signing pathologist has (i) examined the [...] Psoriasis Report to: Sergo Valle MD, III [facility] Dermatology [place], [place] ??[address] Gross Description A - Labeled/Fixative: A - [...] 08/29/09 Verified by: ? Varun GO, PhD, [facility] ?Dermatopatholog ist ?(Electronic Signature) The attending pathologist [...] MD PATHOLOGY/CYTOLOGY O KARI Performing Organization Address City/State/[facility] Co de Phone Number TATYANA WARE documented in this encounter Visit Diagnoses Not on filedocumented in this encounter Care Teams Lifestyle Block Farmer Relationship Specialty Start Date End Date Sanam Bennett DIRECTOR BIOLOGICS [address] [place] [address] PCP - General Family Medicine 09/06/22 documented as of this encounter
--- OUTSIDE RECORDS SUMMARY | 2024-08-18 17:59 | XMS_ITS | Encounter Summary ---
Author Organization [facility] [place] [address] Care Team Providers Care Size Marker Name Role Phone Alireza Ojeda DO Primary Care Provider Reason for Visit * Reason Comments Skin Check Encounter Details Date Type Department Care Team (Late st Contact Info) Description 06/26/2013 8:30 AM EDT Office Visit Dermatology [address] [place] [address] [address] [place] [address] Sergo Valle MD [address] [place] [address], [facility] [place] [address] History of basal cell carcinoma (Primary Dx) [...] shoulder, right lateral eyebrow, previously treated in [place]. 3. History of BCCA, right medial cheek, [...] 09/17/2024 9:00 AM EST Appointment [place] [address] Mily Garcia MD [facility] [place] [address] 09/17/2024 9:45 AM EST Laboratory Appointment Lab [address] [place] [address] 09/17/2024 11:30 AM EST Office Visit [place] [address] Mily Garcia MD [facility] [place] [address] documented as of this encounter Visit Diagnoses Diagnosis History of basal cell carcinoma- Primary Personal history of other malignant neoplasm of skin documented in this encounter Care Teams Size Marker Relationship Specialty Start Date End Date Alireza Ojeda DO [address] [place] [address] PCP - General 07/16/11 09/05/22 documented as of this encounter
--- OUTSIDE RECORDS SUMMARY | 2024-08-18 17:59 | XMS_ITS | Encounter Summary ---
Author Organization [facility] Address [address] [place] [address] Care Team Providers Care Aviation Electronics Technician Name Role Phone Rusty, Alireza Carvalho DO Primary Care Provider +1- [phone] Encounter Details Date Type Department Care Team (Late st Contact Info) Description 01/30/2019 Results Only [facility]- [facility] [phone] Ophelia Valladares, DO [address] [place] [address] Social History Tobacco Use Types Packs/Day Years [...] ? GENOVEVA BEARD ? Accession #: ? [id number] ? : ? 1955 (Age: 63) ??F [...] are entirely submitted in C1. ELIER Austin ([facility]) 01/30/2019 4:13 PM End of Report [facility] 01/30/2019 16:0 2 EDT 01/30/2019 16:02 EDT us Ophelia Valladares DO PATHOLOGY ORDERABLES Final Re sult [facility] [address] [place] [address] documented in this encounter Visit Diagnoses Not on filedocumented in this encounter Care Teams Aviation Electronics Technician Relationship Specialty Start Date End Date Alireza Govea DO [address] [place], [place] [address] PCP - General 12/14/15 documented as of this encounter
--- OUTSIDE RECORDS SUMMARY | 2024-08-18 17:59 | XMS_ITS | Encounter Summary ---
Author Organization [facility] Address [address] [place] [address] Care Team Providers Care Shower Screen Installer Name Role Phone Alireza Ojeda DO Primary Care Provider +1- [phone] Encounter Details Date Type Department Care Team (Late st Contact Info) Description 09/27/2023 Lab Requisition [facility] Pathology & Laboratory Medicine - [facility] [address] [place] [address] Outr Resulting Lab, Provider Social History Tobacco [...] Marker 3.2 <8.1 ng/mL 09/27/2023 20:23 EST [facility] Comment: AFP Tumor Marker cannot be interpreted in females. ?? NOTE: Serum AFP concentrations should not be interpreted as absolute evidence for the presence or absence of malignant disease. Assayed on Siemens ADVIA Centaur XPT using chemiluminescent technology. ??Values obtained by using different assay methods cannot be used interchangeably. Blood VENOUS BLOOD / Unknown 09/27/2023 7:56 EST 09/27/2023 19:00 EST us Provider Outr Resulting Lab CHEMISTRY & BLOOD GA S ORDERABLES Final Result Performing Organization Address [facility] Co de Phone Number [facility] [address] [place] [address] * TISSUE TRANSGLUTAMINASE ANTIBODY, IGA (09/27/2023 7:56 EST) Tissue Transglutaminase Antibody, IgA <4.0 <20.0 CU 10/01/2023 12:31 EST [facility] Comment: Negative: <20.0 CU Weak Positive: 20.0-30.0 CU Positive: >30.0 CU Results were obtained with the [employer]A Flash h-tTG IgA chemiluminescent immunoassay. Values obtained with different manufacturers' assay methods may not be used interchangeably. Blood VENOUS BLOOD / Unknown 09/27/2023 7:56 EST 09/27/2023 19:00 EST us Provider Outr Resulting Lab IMMUNOLOGY AND SEROL OGY ORDERABLES Final Result Performing Organization Address [facility] Co de Phone Number [facility] [address] [place] [address] documented in this encounter Visit Diagnoses Not on filedocumented in this encounter Care Teams Shower Screen Installer Relationship Specialty Start Date End Date Alireza Ojeda DO [address] [place] [address] PCP - General 12/14/15 documented as of this encounter
--- OUTSIDE RECORDS SUMMARY | 2024-08-18 17:59 | XMS_ITS | Encounter Summary ---
Author Organization [facility] Address [address] [place] [address] Care Team Providers Care Radiotelegrapher Name Role Phone Unknown, Provider Primary Care Provider Unava ilable Encounter Details Date Type Department Care Team (Late st Contact Info) Description 12/12/2012 Results Only [facility] [phone] Uziel Andrade, DO [address] [place] [address] Social History Tobacco Use Types [...] ? GENOVEVA WHITING ? Accession #: ? [id number] ? : ? 1955 (Age: 57) ??F [...] ? Result ? B2 ?H. pylori (polyclonal, [place]) ?Negative. ? (Dr. Lester)/[facility] ? NOTE: ??One [...] reagents' performance characteristics have been determined by [facility]. ??This laboratory is certified under the Clinical Laboratory Improvement Amendments of 1988 (CLIA-88) as qualified to perform high complexity clinical laboratory testing. ?? Document reviewed and electronically signed by: CROTES HESTER MD Report ??Date: 12/16/2012 11:37 By the signature above, the attending physician certifies that he/she has personally conducted a gross and/or microscopic examination of the described specimens and rendered or confirmed the above diagnosis. Specimen(s) Received: A. ?Duodenal bxs (#1) B. ? Bxs gastric antrum (#2) Clinical History: ? Recalcitrant GERD Gross Description: ? Received in formalin labelled Wh[place], Genoveva and 1-duodenal bx are two de jesus-pink [...] submitted entirely as (B1) and (B2). (Dr. Malik)/[facility] End of Report [facility] 12/12/2012 16:4 1 EDT 12/12/2012 16:41 EDT us Uziel Andrade DO PATHOLOGY ORDERABLES Final Res ult Performing Organization Address City/State/[facility] Co de Phone Number [facility] [address] [place] [address] documented in this encounter Visit Diagnoses Not on filedocumented in this encounter Care Teams Radiotelegrapher Relationship Specialty Start Date End Date Unknown, Provider, PCP - General 04/04/09 12/13/15 documented as of this encounter
--- OUTSIDE RECORDS SUMMARY | 2024-08-18 17:59 | XMS_ITS | Encounter Summary ---
Author Organization [facility] Address [address] [place] [address] Care Team Providers Care Lining Stamper Name Role Phone Unknown, Provider Primary Care Provider Unava ilable Encounter Details Date Type Department Care Team (Late st Contact Info) Description 12/09/2015 Results Only [facility] [phone] Uziel Andrade, DO [address] [place] [address] Social History Tobacco Use Types [...] ? GENOVEVA BEARD ? Accession #: ? [id number] ? : ? 1955 (Age: 60) ??F [...] ANTIBODY(CLONE)(BLO CK):RESULT H. pylori (Rabbit Monoclonal (SP48), [place]) (block 2): ??Negative ? NOTE: ??One or [...] performance characteristics have been determined by the [facility]. ??This laboratory is certified under the [...] Villegas 12/12/2015 9:33 AM End of Report [facility] 12/09/2015 6:03 EST 12/10/2015 6:03 EST us Uziel Andrade DO PATHOLOGY ORDERABLES Final Res ult [facility] [address] [place] [address] documented in this encounter Visit Diagnoses Not on filedocumented in this encounter Care Teams Lining Stamper Relationship Specialty Start Date End Date Unknown, Provider, PCP - General 04/04/09 3 documented as of this encounter
--- OUTSIDE RECORDS SUMMARY | 2024-08-18 17:59 | XMS_ITS | Encounter Summary ---
Author Organization [facility] Address [address] [place] [address] Care Team Providers Care Rope Coiling Machine Operator Name Role Phone Alireza Ojeda DO Primary Care Provider +1- [phone] Encounter Details Date Type Department Care Team (Latest Contact Info) Description 08/03/2016 11:11 EDT - 08/03/2016 23:59 EDT Hospital Encounter [address] [address] Unknown, Provider, MD Discharge Disposition: Home or Self Care Social [...] Code Departure Means Destination Home or Self Longterm documented in this encounter Plan of Treatment Not on file documented as of this encounter Visit Diagnoses Not on filedocumented in this encounter Care Teams Rope Coiling Machine Operator Relationship Specialty Start Date End Date Alireza Ojeda DO [address] [place] [address] PCP - General 12/14/15 documented as of this encounter
--- OUTSIDE RECORDS SUMMARY | 2024-08-18 17:59 | XMS_ITS | Encounter Summary ---
Author Organization Counts Include [facility] Address [facility] [place] [address] Care Team Providers Care International Account Representative Name Role Phone Alireza Ojeda DO Primary Care Provider [phone] Reason for Visit * Reason Comments GI Problem Encounter Details Date Type Department Care Team (Late st Contact Info) Description 05/06/2013 1:00 PM EDT Office [place] [address] Jo-Ann Grubbs APRN [facility] [place] [address] Gastritis (Primary Dx) Discharge Disposition: Home Social [...] PM EDT Section of Gastroenterology and Hepatology [address] [place], [place] [id number] .eGnoveva Almonteith : 1955 Patient is here for further evaluation of gastrointestinal symptoms at the request of Alireza Ojeda DO. HPI: Dx many years ago with celiac disease. Per pt she had an egd/small bowel bx which dx celiac. Since then has been following a gluten free diet. Upper endoscopy 11/2012, [facility], per notes showed inactive celiac disease and [...] mucous in stool. No incontinence. Colonoscopy 2010, [facility], normal exam per pt. Received test results during visit. Upper endoscopy [facility] 2010: duodenum mucosa blunted, gastric antrum had multiple petechial hemorrhages which continued up to the greater curvature, with edema and erythema of the gastric antrum. Bx showed chronic nonspecific duodenitis, rare mild villous blunting, slight increase in intraepithelial lymphocytes. Gastric antral mucosa with no specific pathological features Upper endoscopy [facility] 2013. Duodenum mucosa blunted. Gastric antrum had edema and erythema. Bx of duodenum did not show worrisome features, antral mucosa with chronic focally active gastritis, h. Pylori negative. Colonoscopy 2010, [facility], normal exam. History Social History ??? Marital [...] compliance. May need to refer to GI creative strategist. 4. Gas/bloat: fodmap diet 5. Given family [...] 09/17/2024 9:00 AM EST Appointment [place] [address] Mily Garcia MD [facility] [place] [address] 09/17/2024 9:45 AM EST Laboratory Appointment Lab [address] [place] [phone] 09/17/2024 11:30 AM EST Office Visit Gastroenterology at [facility] [place] [address] Mily Garcia MD [facility] [place] [address] documented as of this encounter Procedures Procedure [...] * Differential, Automated (05/06/2013 2:10 PM EDT) Neutrophil % 46.9 34.0 - 71.0 % CERNER MILLENNIUM Neutrophil Absolute 3.48 1.50 - 6.30 x10(3)/mcL CERNER MILLENNIUM Lymph % 42.9 19.0 - 53.0 % CERNER MILLENNIUM Lymphocytes Abs 3.2 1.0 - 3.6 x10(3)/mcL CERNER MILLENNIUM Monocyte % 7.2 4.0 - 13.0 % CERNER MILLENNIUM Monocyte Abs 0.5 0.2 - 1.0 x10(3)/mcL CERNER MILLENNIUM Eos % 2.2 0.0 - 7.0 % CERNER MILLENNIUM Eosinophils Abs 0.2 0.0 - 0.5 x10(3)/mcL CERNER MILLENNIUM Basophil % 0.5 0.0 - 2.0 % CERNER MILLENNIUM Baso Absolute 0.0 0.0 - 0.2 x10(3)/mcL CERNER MILLENNIUM [...] performed. Immature Gran Absolute 0.02 0.00 - 0.05 x10(3)/mcL CERNER MILLENNIUM Blood specimen (specimen) 05/06/2013 2:10 PM EDT 05/06/2013 2:12 PM EDT Michael Garcia MD HEMATOLOGY ORDERABLE S Performing Organization Address [email or web address]] de Phone Number [facility] * Folate, serum (05/06/2013 2:10 PM EDT) Folate >20.0 4.6 - 34.8 ng/mL [facility] Blood specimen (specimen) 05/06/2013 2:10 PM EDT 05/06/2013 2:12 PM EDT Narrative Resulting Agency Comment Spec In Lab Michael Garcia MD CHEMISTRY ORDERABLES Performing Organization Address [email or web address]] de Phone Number [facility] * (ABNORMAL) Vitamin B12 (05/06/2013 2:10 PM EDT) Vitamin B12 1009(H) 207 - 974 pg/mL [facility]ALK[facility] Blood specimen (specimen) 05/06/2013 2:10 PM EDT 05/06/2013 2:12 PM EDT Narrative Resulting Agency Comment Spec In Lab Michael Garcia MD CHEMISTRY ORDERABLES Performing Organization Address City/[facility]/ZIP Co de Phone Number [facility] MILLENNIUM * Ferritin (05/06/2013 2:10 PM EDT) Ferritin 42 30 - 400 ng/mL CERNER MILLENNIUM Comment: Pediatric reference ranges not verified at [facility], interpret with caution. Reference ranges for females greater than 50 years of age approach values for men, i.e., 30-400 ng/mL. Blood specimen (specimen) 05/06/2013 2:10 PM EDT 05/06/2013 2:12 PM EDT Narrative Resulting Agency Comment Spec In Lab Michael Garcia MD CHEMISTRY ORDERABLES Performing Organization Address [facility] [[email or web address]] de Phone Number [facility] * Iron and TIBC (05/06/2013 2:10 PM EDT) Iron 97 30 - 150 mcg/dL CERNER MILLENNIUM TIBC 325 250 - 450 mcg/dL [facility] Iron Saturation 30 20 - 50 % [facility] MILLENNIUM Blood specimen (specimen) 05/06/2013 2:10 PM EDT 05/06/2013 2:12 PM EDT Narrative Resulting Agency Comment Spec In Lab Michael Garcia MD CHEMISTRY ORDERABLES Performing Organization Address [email or web address] de Phone Number [facility] DEN[facility] * CBC (with Diff) (05/06/2013 2:10 PM EDT) White Blood Cell 7.4 4.0 - 10.0 x10(3)/mcL CERNER MILLENNIUM Red Blood Cell 4.20 3.93 - 5.22 x10(6)/mcL CERNER MILLENNIUM Hemoglobin 11.9 11.2 - 15.7 gm/dL CERNER MILLENNIUM Hematocrit 36.0 34.0 - 45.0 % CERNER MILLENNIUM Mean Cell Volume 85.7 79.0 - 94.0 fL CERNER MILLENNIUM Mean Cell Hemoglobin 28.3 26.6 - 32.2 pg CERNER MILLENNIUM Mean Cell Hemoglobin Concentration 33.1 32.0 - 36.5 gm/dL CERNER MILLENNIUM Platelet 284 145 - 370 x10(3)/mcL CERNER MILLENNIUM RDW Standard Deviation 43.0 35.0 - 46.0 fL CERNER MILLENNIUM RDW coefficient of variation 13.8 10.9 - 14.4 % CERNER MILLENNIUM Mean Platelet Volume 10.1 9.0 - 12.0 fL CERNER MILLENNIUM Blood specimen (specimen) 05/06/2013 2:10 PM EDT 05/06/2013 2:12 PM EDT Narrative Resulting Agency Comment Spec In Lab Michael Garcia MD HEMATOLOGY ORDERABLE S Performing Organization Address City/[facility]/ZIP Co de Phone Number [facility] * Parietal Cell Antibody IgG (05/06/2013 2:10 PM EDT) [facility] Parietal Cell Ab, IgG (MAY) <10.0 <=20.0 (Negative) U [facility] Comment: Test Performed by: [place] [address] Package Line Relief Operator: Danny Tucker III, M.D. Blood specimen (specimen) 05/06/2013 2:10 PM EDT 05/06/2013 4:21 PM EDT Narrative Resulting Agency Comment Spec In Lab Michael Garcia MD LAB SEND OUT ORDERAB LES Performing Organization Address [email or web address]] de Phone Number [facility] * Intrinsic Factor Blocking Antibody (05/06/2013 2:10 PM EDT) [facility] IF Ab Negative Negative [facility] Comment: Positive in 50% of persons with pernicious anemia. Test Performed by: [facility] [address], [place] [address] Package Line Relief Operator: Estefany De La Torre, Ph.D. Blood specimen (specimen) 05/06/2013 2:10 PM EDT 05/06/2013 4:19 PM EDT Narrative Resulting Agency Comment Spec In Lab Michael Garcia MD LAB SEND OUT ORDERAB LES Performing Organization Address City/[facility]/ZIP Co de Phone Number [facility] documented in this encounter Visit Diagnoses Diagnosis Gastritis- Primary Unspecified gastritis and gastroduodenitis without mention of hemorrhage documented in this encounter Care Teams International Account Representative Relationship Specialty Start Date End Date Alireza Ojeda DO [address] [place] [address] PCP - General 07/16/11 09/05/22 documented as of this encounter
--- OUTSIDE RECORDS SUMMARY | 2024-08-18 17:59 | XMS_ITS | Encounter Summary ---
Author Organization [facility] Address [address] [place] [address] Care Team Providers Care Billet Header Name Role Phone Unknown, Provider Primary Care Provider Unava ilable Encounter Details Date Type Department Care Team (Latest Contact Info) Description 12/09/2015 8:00 EST - 12/09/2015 23:59 EST Hospital Encounter [address] [address] Unknown, Provider, Discharge Disposition: Home or Self [...] Code Departure Means Destination Home or Self Mcfp documented in this encounter Plan of Treatment Not on file documented as of this encounter Visit Diagnoses Not on filedocumented in this encounter Care Teams Billet Header Relationship Specialty Start Date End Date Unknown, Provider, PCP - General 04/04/09 12/13/15 documented as of this encounter
--- OUTSIDE RECORDS SUMMARY | 2024-08-18 17:59 | XMS_ITS | Encounter Summary ---
Author Organization [facility] Address [address] [place] [address] Care Team Providers Care Director Of Physical Security Name Role Phone Alireza Ojeda DO Primary Care Provider [phone]- [phone] Encounter Details Date Type Department Care Team (Late st Contact Info) Description 01/29/2022 Lab Requisition [facility] Pathology & Laboratory Medicine - [facility] [address] [place] [address] Outr Resulting Lab, Provider Social History Tobacco [...] C Antibody Negative Negative 01/30/2022 10:47 EDT [facility] Blood VENOUS BLOOD / Unknown 01/29/2022 12:18 EDT 01/29/2022 20:43 EDT us Provider Outr Resulting Lab CHEMISTRY & BLOOD GA S ORDERABLES Final Result [facility] [address] [place] [address] documented in this encounter Visit Diagnoses Not on filedocumented in this encounter Care Teams Director Of Physical Security Relationship Specialty Start Date End Date Alireza Ojeda DO [address] [place] [address] PCP - General 12/14/15 documented as of this encounter
--- OUTSIDE RECORDS SUMMARY | 2024-08-18 17:59 | XMS_ITS | Clinical Summary ---
Author Organization [facility] Address [address] [place] [address] Care Team Providers Care Skein Bander Name Role Phone Alireza Ojeda DO Primary Care Provider +1- [phone] Social History Tobacco Use Types Packs/Day Years [...] Health Maintenance Due Date Last Done Comments Fall Risk Screening 02/26/2020 COVID-19 Vaccine ( season) 2024 RSV Immunization ( o r 60+ Years) (1 - 1-dose 75+ series) 2030 Hepatitis C Screen Completed 01/29/2022 Procedures Procedure Name Priority Date/Time Associated Diagnosis Comments HEPATITIS C AB W REFLEX TO HCV RNA BY PCR Routine 01/29/2022 12:18 EDT from Last 3 Months or Most Recently Relevant to Health Maintenance Results * HEPATITIS C AB W REFLEX TO HCV RNA BY PCR (01/29/2022 12:18 EDT) Hep C Antibody Negative Negative 01/30/2022 10:47 EDT [facility] Blood VENOUS BLOOD / Unknown 01/29/2022 12:18 EDT 01/29/2022 20:43 EDT us Provider Outr Resulting Lab CHEMISTRY & BLOOD GA S ORDERABLES Final Result [facility] [address] [place] [address] from Last 3 Months or Most Recently Relevant to Health Maintenance Care Teams Skein Bander Relationship Specialty Start Date End Date Alireza Ojeda DO [address] [place], [place] [id number] PCP - General 12/14/15
--- OUTSIDE RECORDS SUMMARY | 2024-08-18 17:59 | XMS_ITS | Encounter Summary ---
Author Organization [facility] Address [address] [place] [address] Care Team Providers Care Sterile Supervisor Name Role Phone Alireza Ojeda DO Primary Care Provider +1- [phone] Encounter Details Date Type Department Care Team (Late st Contact Info) Description 06/27/2022 Lab Requisition [facility] Pathology & Laboratory Medicine - [facility] [address] [place] [address] Outr Resulting Lab, Provider Social History Tobacco [...] EDT) Albumin, Urine % 13.3 N/A % 09/29/20 22 14:21 T [facility] Albumin, Urine mg/dL 1 mg/dL 06/28/2022 14:21 [facility] Globulins, Urine % 86.7 N/A % 06/28/2022 14:21 [facility] Globulins, Urine mg/dL 5 mg/dL 06/28/2022 14:21 [facility] UPEP Comment See Comment 06/28/2022 14:21 T [facility] Comment:Electrophoresis scre ening performed; Immunotyping to follow. See scanned/supplementary report. Immunotyping, Urine Current Interpretatio n: Negative for free monoclonal light chains. Reviewed by: David Mata MD 06/28/2022 1330 06/28/2022 14:21 T [facility] Total Protein, Urine 6 See Note mg/dL 06/28/2022 14:21 [facility] Comment: NOTE: Reference range has not been established for total protein concentration in random urine specimens. Urine URINE SPECIMEN COLLECTION, CLEAN CATCH / Unknown 06/27/2022 13:30 EDT 06/27/2022 21:16 EDT us Provider Outr Resulting Lab URINALYSIS ORDERABLE S Final Result Performing Organization Address [facility] de Phone Number [facility] [address] [place] [address] * PROTEIN, TOTAL, RANDOM, URINE (06/27/2022 13:30 EDT) Urine URINE SPECIMEN COLLECTION, CLEAN CATCH / Unknown 06/27/2022 13:30 EDT 06/27/2022 21:16 EDT us Provider Outr Resulting Lab URINALYSIS ORDERABLE S Final Result Performing Organization Address [facility] Co de Phone Number [facility] [address] [place] [address] documented in this encounter Visit Diagnoses Not on filedocumented in this encounter Care Teams Sterile Supervisor Relationship Specialty Start Date End Date Alireza Ojeda, DO SHORTI: [phone] [address] [place] [address] PCP - General 12/14/15 documented as of this encounter
--- OUTSIDE RECORDS SUMMARY | 2024-08-18 17:59 | XMS_ITS | Encounter Summary ---
Author Organization [facility] Address [address] [place] [address] Care Team Providers Care Irrigation Foreman Name Role Phone Alireza Ojeda DO Primary Care Provider +1- [phone] Encounter Details Date Type Department Care Team (Late st Contact Info) Description 11/08/2020 Lab Requisition [facility] Pathology & Laboratory Medicine - [facility] [address] [place] [address] Outr Resulting Lab, Provider Social History Tobacco [...] Unknown 11/08/2020 8:32 EST 11/08/2020 16:56 EST us Provider Outr Resulting Lab MICROBIOLOGY - GENER AL ORDERABLES Final Result [facility] [address] [place] [address] * COVID-19 TESTING (11/08/2020 8:32 EST) COVID-19 rt-PCR Result Negative Negative 11/09/2020 15:12 EST [facility] Comment: This test has not [...] performed using the naseem SARS-CoV-2 assay ([employer] on the Naseem 6800 System Performing Lab Naseem [address] [facility] Lab 11/09/2020 15:12 EST [facility] Swab 11/08/2020 8:32 EST 11/08/2020 16:56 EST us Provider Outr Resulting Lab MICROBIOLOGY - GENER AL ORDERABLES Final Result [facility] [address] [place] [address] documented in this encounter Visit Diagnoses Not on filedocumented in this encounter Care Teams Irrigation Foreman Relationship Specialty Start Date End Date Alireza Ojeda DO [address] [place], [place] [address] PCP - General 12/14/15 documented as of this encounter
--- OUTSIDE RECORDS SUMMARY | 2024-08-18 17:59 | XMS_ITS | Encounter Summary ---
Author Organization [facility] Address [address] [place] [address] Care Team Providers Care Post Anesthesia Room Nurse Name Role Phone Unknown, Provider Primary Care Provider Unava ilable Encounter Details Date Type Department Care Team (Late st Contact Info) Description 11/17/2010 Results Only [facility] Laboratory Services - [facility] ([facility]) [address] [place], [place] [address] Krystle Her MD [address] [place] [address] [address] [place], [place] [id number] Social History Tobacco Use Types Packs/Day Years [...] ? GENOVEVA BEARD ? Accession #: ? [id number] ? : ? 1955 (Age: 55) ??F [...] 12/15/10, we were notified that [facility] at [facility] that the sample was submitted with incorrect patient identification. No sample was actually ? collected from this patient, and all charges related to this sample for this ? patient have been credited. ? Document reviewed and electronically signed by: ? Deja Godwin, SCT(ASCP) ? Report Date: ??12/15/2010 14:23 ? [...] of Report ? [facility]OST[facility] 11/17/2010 11/20/2010 us Krystle Her MD PATHOLOGY ORDERABLES Final Re sult [facility] [address] [place] [address] documented in this encounter Visit Diagnoses Not on filedocumented in this encounter Care Teams Post Anesthesia Room Nurse Relationship Specialty Start Date End Date Unknown, Provider, PCP - General 04/04/09 12/13/15 documented as of this encounter
--- OUTSIDE RECORDS SUMMARY | 2024-08-18 17:59 | XMS_ITS | Encounter Summary ---
Author Organization [facility] Address [address] [place] [address] Care Team Providers Care X Ray Consultant Name Role Phone Alireza Ojeda DO Primary Care Provider +1- [phone] Encounter Details Date Type Department Care Team (Late st Contact Info) Description 01/03/2021 Lab Requisition [facility] Pathology & Laboratory Medicine - [facility] [address] [place] [address] Outr Resulting Lab, Provider Social History Tobacco [...] Unknown 01/02/2021 14:15 EDT 01/03/2021 16:03 EDT us Provider Outr Resulting Lab MICROBIOLOGY - GENER AL ORDERABLES Final Result Performing Organization Address [facility]/ZIP Co de Phone Number [facility] [address] [place] [address] * COVID-19 TESTING (01/02/2021 14:15 EDT) COVID-19 rt-PCR Result Negative Negative 01/04/2021 18:02 EDT [facility] Comment: This test has [...] developed and its performance characteristics determined by [facility]. It has not been cleared or approved [...] testing. This test is based on the [facility] COVID-19 Emergency Use Authorization (EUA) assay, with minor modification as defined by the FDA Performed on the Chance (app[employer]o 7 Flex RT-PCR System. Performing Lab [facility] Lab 01/04/2021 18:02 EDT [facility] Swab 01/02/2021 14:1 5 EDT 01/03/2021 16:03 EDT us Provider Outr Resulting Lab MICROBIOLOGY - GENER AL ORDERABLES Final Result Performing Organization Address City/[facility]/ZIP Co de Phone Number [facility] [address] [place] [address] documented in this encounter Visit Diagnoses Not on filedocumented in this encounter Care Teams X Ray Consultant Relationship Specialty Start Date End Date Alireza Ojeda DO [address] [place] [address] PCP - General 12/14/15 documented as of this encounter
--- OUTSIDE RECORDS SUMMARY | 2024-08-18 17:59 | XMS_ITS | Encounter Summary ---
Author Organization [facility] Address [address] [place] [address] Care Team Providers Care Commercial Energy Auditor Name Role Phone Alireza Ojeda DO Primary Care Provider +1- [phone] Encounter Details Date Type Department Care Team (Late st Contact Info) Description 01/16/2024 Lab Requisition [facility] Pathology & Laboratory Medicine - [facility] [address] [place] [address] Outr Resulting Lab, Provider Social History Tobacco [...] Marker 3.0 <8.1 ng/mL 01/17/2024 9:48 EDT [facility] Comment: AFP Tumor Marker cannot be interpreted in females. ?? NOTE: Serum AFP concentrations should not be interpreted as absolute evidence for the presence or absence of malignant disease. Assayed on Siemens ADVIA Centaur XPT using chemiluminescent technology. ??Values obtained by using different assay methods cannot be used interchangeably. Blood VENOUS BLOOD / Unknown 01/16/2024 12:54 EDT 01/16/2024 22:22 EDT us Provider Outr Resulting Lab CHEMISTRY & BLOOD GA S ORDERABLES Final Result Performing Organization Address [facility] Co de Phone Number [facility] [address] [place], [place] [address] * TISSUE TRANSGLUTAMINASE ANTIBODY, IGA (01/16/2024 12:54 EDT) Tissue Transglutaminase Antibody, IgA <4.0 <20.0 CU 01/21/2024 11:40 EDT [facility] Comment: Negative: <20.0 CU Weak Positive: 20.0-30.0 CU Positive: >30.0 CU Results were obtained with the [employer] Flash h-tTG IgA chemiluminescent immunoassay. Values obtained with different manufacturers' assay methods may not be used interchangeably. Blood VENOUS BLOOD / Unknown 01/16/2024 12:54 EDT 01/16/2024 22:22 EDT us Provider Outr Resulting Lab IMMUNOLOGY AND SEROL OGY ORDERABLES Final Result Performing Organization Address [facility] Co de Phone Number [facility] [address] [place] [id number] documented in this encounter Visit Diagnoses Not on filedocumented in this encounter Care Teams Commercial Energy Auditor Relationship Specialty Start Date End Date Alireza Ojeda DO [address] [place], [place] [address] PCP - General 12/14/15 documented as of this encounter
--- OUTSIDE RECORDS SUMMARY | 2024-08-18 17:59 | XMS_ITS | Encounter Summary ---
Author Organization [facility] Address [address] [place] [address] Care Team Providers Care Dairy Husbandman Name Role Phone Unknown, Provider Primary Care Provider Unava ilable Encounter Details Date Type Department Care Team (Late st Contact Info) Description 07/27/2011 Results Only [facility] [phone] Uziel Andrade, DO [address] [place] [address] Social History Tobacco Use Types [...] ? GENOVEVA BEARD ? Accession #: ? [id number] ? : ? 1955 (Age: 56) ??F [...] manifestation of sprue. Suggest clinical correlation. (Dr. Rene)/[facility] Document reviewed and electronically signed by: ANGELITO [...] Gross Description: ? Received in formalin labelled Johanne Genoveva and duodenum bx are four de jesus-brown soft tissue fragments that range from 0.1 x 0.1 x 0.1 cm to 0.5 x 0.3 x 0.2 cm. ??The specimen is entirely submitted in cassette (A1) and (A2). Received in formalin labelled Johanne Genoveva and gastric antrum bx are three de jesus-brown soft tissue fragments that range from 0.2 x 0.2 x 0.1 cm to 0.4 x 0.2 x 0.1 cm. ??The specimen is entirely submitted in cassette (B). ??(Dr. Levy)/mpl End of Report JESSA DACOST[facility] 07/27/2011 07/27/2011 17: 14 EDT Uziel Andrade DO PATHOLOGY ORDERABLES Final Res ult JESSA DACOSTA [address] [place] [address] documented in this encounter Visit Diagnoses Not on filedocumented in this encounter Care Teams Dairy Husbandman Relationship Specialty Start Date End Date Unknown, Provider, PCP - General 04/04/09 12/13/15 documented as of this encounter
--- OUTSIDE RECORDS SUMMARY | 2024-08-18 17:59 | XMS_ITS | Encounter Summary ---
Author Organization [facility] Address [facility] [place] [address] Care Team Providers Care Specialized Language Instructor Name Role Phone Alireza Ojeda DO Primary Care Provider Encounter Details Date Type Department Care Team (Late st Contact Info) Description 05/25/2013 Orders [place] [phone] Jo-Ann Grubbs APRN [facility] [place] [address] GERD (gastroesophageal reflux disease) (Primary Dx) Social [...] 09/17/2024 9:00 AM [place] [phone] Mily Garcia MD [facility] [place] [address] 09/17/2024 9:45 AM EST Laboratory Appointment Lab [address] [place] [address] 09/17/2024 11:30 AM EST Office [place] [address] Mily Garcia MD [facility] [place] [address] documented as of this encounter Procedures Procedure [...] reflux documented in this encounter Care Teams Specialized Language Instructor Relationship Specialty Start Date End Date Alireza Ojeda DO [address] [place] [address] PCP - General 07/16/11 09/05/22 documented as of this encounter
--- OUTSIDE RECORDS SUMMARY | 2024-08-18 17:59 | XMS_ITS | Encounter Summary ---
Author Organization [facility] Address [address] [place] [address] Care Team Providers Care Metrology Specialist Name Role Phone Unknown, Provider Primary Care Provider Unava ilroz Encounter Details Date Type Department Care Team (Late st Contact Info) Description 04/04/2009 Orders Only [facility] Laboratory Services - [facility] ([facility] [address] [place] [address] Lauren Nuno, HAN Social History Tobacco [...] ? GENOVEVA BEARD ? Accession #: ? [id number] ? : ? 1955 (Age: 54) ??F ?Collect Date: ? 04/04/2009 ? Location: ? [facility] ? Receive Date: ? 04/04/2009 ? Provider: ?LAUREN M KRISTIE STRAP MACHINE OPERATOR ? Copy to: ? Specimen/Source: ?Pap Test, [...] reviewed and electronically signed by: ? Gregory Stumler, CT(ASCP) ? Report Date: ??04/08/2009 15:54 ? End of Report ? JESSA DACOSTA 04/04/2009 04/04/2009 us Lauren Nuno NP PATHOLOGY ORDERABLES Final Re sult JESSA DACOSTA [address] [place] [address] documented in this encounter Visit Diagnoses Not on filedocumented in this encounter Care Teams Metrology Specialist Relationship Specialty Start Date End Date Unknown, Provider, PCP - General 04/04/09 12/13/15 documented as of this encounter
--- OUTSIDE RECORDS SUMMARY | 2024-08-18 17:59 | XMS_ITS | Encounter Summary ---
Author Organization [facility] Address [address] [place] [address] Care Team Providers Care Pathology Laboratory Aides Teacher Name Role Phone Alireza Ojeda DO Primary Care Provider +1- [phone] Encounter Details Date Type Department Care Team (Late st Contact Info) Description 01/03/2022 Lab Requisition [facility] - [facility] [address] [place] [address] Outr Resulting Lab, Provider Social History Tobacco [...] ID No fungi isolated 01/12/2022 10:16 EDT [facility] Fungal Smear No Fungi Seen 01/12/2022 10:16 EDT [facility] Swab ENTIRE PHARYNX / Unknown 01/02/2022 14:30 EDT 01/03/2022 21:29 EDT us Provider Outr Resulting Lab MICROBIOLOGY - GENER AL ORDERABLES Final Result [facility] [address] [place] [address] documented in this encounter Visit Diagnoses Not on filedocumented in this encounter Care Teams Pathology Laboratory Aides Teacher Relationship Specialty Start Date End Date Alireza Ojeda DO [address] [place], [place] [id number] PCP - General 12/14/15 documented as of this encounter
--- OUTSIDE RECORDS SUMMARY | 2024-08-18 17:59 | XMS_ITS | Encounter Summary ---
Author Organization [facility] Address [address] [place] [address] Care Team Providers Care Attendance Clerk Name Role Phone Unknown, Provider Primary Care Provider Unava ilable Encounter Details Date Type Department Care Team (Late st Contact Info) Description 06/27/2011 Results Only [facility] Laboratory Services - [facility] ([facility]) [address] [place] [address] Lauren Nuno, HAN Social History Tobacco [...] ? GENOVEVA BEARD ? Accession #: ? [id number] ? : ? 1955 (Age: 56) ??F ?Collect Date: ? 06/27/2011 ? Location: ? [facility] ? Receive Date: ? 06/28/2011 ? Provider: LAUREN NUNO MUTUAL FUND ACCOUNTANT Copy to: TRI GRAY MD ? Final [...] of Report [facility] 06/27/2011 06/28/2011 us Lauren Nuno NP PATHOLOGY ORDERABLES Edited [facility] [address] [place] [address] documented in this encounter Visit Diagnoses Not on filedocumented in this encounter Care Teams Attendance Clerk Relationship Specialty Start Date End Date Unknown, Provider, PCP - General 04/04/09 12/13/15 documented as of this encounter
--- OUTSIDE RECORDS SUMMARY | 2024-08-18 17:59 | XMS_ITS | Encounter Summary ---
Author Organization [facility] Address [facility] [place] [address] Care Team Providers Care Operater Name Role Phone Alireza Ojeda DO Primary Care Provider Encounter Details Date Type Department Care Team (Latest Contact Info) Description 07/07/2013 11:40 AM EDT - 07/07/2013 2:23 PM EDT Hospital En[place] [address] Michael Garcia MD [facility] DR [place] [address] Que Mejia MD [facility] [place] [address] Discharge Disposition: Home Social History Tobacco Use [...] GI ENDOSCOPY: WHAT TO EXPECT AT HOME (JAPANESE) documented in this encounter Medications at Time [...] 09/17/2024 9:00 AM [place] [address] Mily Garcia MD [facility] [place] [address] 09/17/2024 9:45 AM EST Laboratory Appointment Lab [address] [place] [address] 09/17/2024 11:30 AM EST Office [place] [address] Mily Garcia MD [facility] [place] [address] documented as of this encounter Procedures Procedure [...] 1:33 PM EDT) Surgical Pathology Report ? [facility] ? Provider: ?? QUE MEJIA ?Pt. Name: ?? GENOVEVA WHITING ? Acc #: ?[id number] ?Pt. ? Col Date: ?? 07/07/2013 ? [...] activity ? Clinical Diagnosis: ? Same [facility] 07/07/2013 1:33 PM EDT Que Mejia MD PATHOLOGY/CYTOLOGY Ana Rosa PIERCE Performing Organization Address [facility] de Phone Number [facility] * Specimen to Pathology (surgical or derm) (07/07/2013 1:33 PM EDT) AP Specimen 07/07/2013 1:33 PM EDT 07/07/2013 1:[address] [facility] [address] - 07/07/2013 1:33 PM EDT Specimen requisition ordered. ??Separate Pathology report to follow Que Mejia MD PATHOLOGY/CYTOLOGY O KARI Performing Organization Address [facility] Co de Phone Number [facility] * UPPER GI ENDOSCOPY (07/07/2013 12:55 PM EDT) UPPER GI ENDOSCOPY [facility] Endoscopy Patient Name: Genoveva Whiting ? Procedure Date: 07/07/2013 12:55 PM ? Date of : 1955 ? Age: 58 ? Order #: [id number] ? Procedure: ? Upper GI endoscopy Indications: ? Refractory GERD for Berry capsule Providers: ? Que Mejia MD, Petty Turpin, ? RN, Rhonda Balderas, Access Liaison Referring : ?Alireza Ojeda, DO Medicines: ? [...] RN) documented in this encounter Care Teams Operater Relationship Specialty Start Date End Date Alireza Ojeda DO [address] [place] [address] PCP - General 07/16/11 09/05/22 documented as of this encounter
--- OUTSIDE RECORDS SUMMARY | 2024-08-18 17:59 | XMS_ITS | Encounter Summary ---
Author Organization [facility] Address [address] [place] [address] Care Team Providers Care Tar Distillation Supervisor Name Role Phone Alireza Ojeda DO Primary Care Provider +1- [phone] Encounter Details Date Type Department Care Team (Latest Contact Info) Description 01/30/2019 11:57 EDT - 01/30/2019 23:59 EDT Hospital Encounter [address] [address] Unknown, Provider, MD Discharge Disposition: Home or [...] Code Departure Means Destination Home or Self Residential documented in this encounter Plan of Treatment Not on file documented as of this encounter Visit Diagnoses Not on filedocumented in this encounter Care Teams Tar Distillation Supervisor Relationship Specialty Start Date End Date Alireza Ojeda DO [address] [place] [address] PCP - General 12/14/15 documented as of this encounter
--- OUTSIDE RECORDS SUMMARY | 2024-08-18 17:59 | XMS_ITS | Encounter Summary ---
[place] [address] Care Team Providers Care Felt Hanger Name Role Phone Alireza Ojeda DO Primary Care Provider Encounter Details Date Type Department Care Team (Late st Contact Info) Description 07/07/2013 1:00 PM EDT Office [place] [address] CLINIC, Krystle Burton, RN GERD (gastroesophageal reflux [...] First pH 6.2. She will mail back logging specialist and diary in view of the distance involved. documented in this encounter Plan of Treatment Upcoming Encounters Date Type Department Care Team (Late st Contact Info) Description 09/17/2024 9:00 AM [place] [address] Mily Garcia MD [facility] [place] [address] 09/17/2024 9:45 AM EST Laboratory Appointment Lab [address] [place] [address] 09/17/2024 11:30 AM EST Office [place] [phone] Mily Garcia MD [facility] [place] [address] documented as of this encounter Visit Diagnoses Diagnosis GERD (gastroesophageal reflux disease)- Primary Esophageal reflux documented in this encounter Care Teams Felt Hanger Relationship Specialty Start Date End Date Alireza Ojeda DO [address] [place] [address] PCP - General 07/16/11 09/05/22 documented as of this encounter
--- OUTSIDE RECORDS SUMMARY | 2024-08-18 17:59 | XMS_ITS | Encounter Summary ---
Author Organization [facility] Address [facility] [place] [address] Care Team Providers Care Audiovisual Librarian Name Role Phone Alireza Ojeda DO Primary Care Provider Encounter Details Date Type Department Care Team (Late st Contact Info) Description 07/07/2013 1:00 PM EDT - 07/07/2013 1:30 PM EDT [place] [address] Que Justin MD [facility] [place] [address] EGD, UPPER GI ENDOSCOPY (WRVU 2.09) Social [...] GI ENDOSCOPY: WHAT TO EXPECT AT HOME (CYMRAES) documented in this encounter Medications at Time [...] 09/17/2024 9:00 AM [place] [address] Mily Garcia MD [facility] [place] [address] 09/17/2024 9:45 AM EST Laboratory Appointment Lab [address] [place] [address] 09/17/2024 11:30 AM EST Office [place] [address] Mily Garcia MD [facility] [place] [address] documented as of this encounter Procedures Procedure [...] 1:33 PM EDT) Surgical Pathology Report ? [facility] ? Provider: ?? QUE JUSTIN ?Pt. Name: ?? GENOVEVA WHITING ? Acc #: ?[id number] ?Pt. ? Col Date: ?? 07/07/2013 ? [...] activity ? Clinical Diagnosis: ? Same TATYANA WRAE 07/07/2013 1:33 PM EDT Que Justin MD [...] (07/07/2013 12:55 PM EDT) UPPER GI ENDOSCOPY [facility] Endoscopy Patient Name: Genoveva Whiting ? Procedure Date: 07/07/2013 12:55 PM ? Date of : 1955 ? Age: 58 ? Order #: [id number] ? Procedure: ? Upper GI endoscopy Indications: ? Refractory GERD for Berry capsule Providers: ? Que Justin MD, Petty Turpin, ? RAÚL, Rhonda Balderas, Head Boys Tennis Coach Referring : ?Alireza Ojeda, DO Medicines: ? [...] Berry capsule was placed by nurse ? Seymour ? Impression: ?- Normal esophagus. ? - [...] RN) documented in this encounter Care Teams Audiovisual Librarian Relationship Specialty Start Date End Date Alireza Ojeda DO [address] [place] [address] [address] [place] [address] PCP - General 07/16/11 09/05/22 documented as of this encounter
[2024-08-18 20:00] VITALS: BP 124/81; PULSE 88; TEMP 36; O2SAT 96
[2024-08-18 20:22] VITALS: BP 124/81; PULSE 88; RESP 18; TEMP 36; O2SAT 96
== END 2024-08-18 20:30 | disposition home or self-care (01) ==
PROVIDERS: Emergency Provider Physician Assistant; PCP Physician Assistant
DX: M51.369 Other intervertebral disc degeneration, lumbar region without mention of lumbar back pain or lower extremity pain (principal); M48.061 Spinal stenosis, lumbar region without neurogenic claudication; I10 Essential (primary) hypertension; E78.5 Hyperlipidemia, unspecified; N39.0 Urinary tract infection, site not specified; Z98.1 Arthrodesis status
CPT/HCPCS: 36415; 80048; 80076; 99284; 74176; 81003; 81015; 85025; 87086

== ENCOUNTER → 2024-09-28 10:05 | Outpatient (BNVA) | payer MEDICARE, OTHER, SELFPAY | PROVIDERS: PCP Physician Assistant; Referring Provider Physician Assistant; Visit Provider Physician Assistant | DX: M23.92 Unspecified internal derangement of left knee (principal); M25.562 Pain in left knee; W18.42XA Slipping, tripping and stumbling without falling due to stepping into hole or opening, initial encounter; Y93.01 Activity, walking, marching and hiking | CPT/HCPCS: 20610; 99213; J1010 ==

== ENCOUNTER 2024-12-17 09:54 | Emergency (ER) | payer MEDICARE, OTHER, SELFPAY ==
[2024-12-17] VITALS (24 sets, daily range): BP systolic 124–140; BP diastolic 74–103; PULSE 79–99; RESP 14–25; TEMP 36.7; O2SAT 91–97
--- NOTE | 2024-12-17 10:00 | RT.EKG_ITS ---
APPROVED REPORT Exam: Resting ECG Reason for Exam: dizziness Patient Location: E HR:95 bpm ECG Measurements Heart Rate 95 AXIS NY 171 P 38 QRSd 91 QRS 266 QT 340 T 45 QTc 428 Conclusion Sinus rhythm...normal P axis, V-rate 60- 99 Inferior infarct, old...Q >35mS, II III aVF Consider anterior infarct...Q >30mS in V2-V5
--- NOTE | 2024-12-17 10:30 | DI.CT_ITS ---
Exam(s) CT THORAX ABD/PEL CTA EXAM: CT THORAX ABD/PEL CTA CLINICAL HISTORY: Chest pain concern for dissection. TECHNIQUE: Imaging Protocol: Axial CT angiography was performed with multi-slice acquisition and m ulti-planar and/or 3D reconstructions. CONTRAST MATERIAL: Intravenous: Omnipaque 350 Contrast volume:125 mL Oral: / no COMPARISON: CT CT CHEST/ABD/PEL W from 03/31/2024 CR XR CHEST 2V PA LATERAL from 03/31/[address] RENAL COLIC WO from 08/18/2024 FINDINGS: CHEST: Pulmonary Arteries: No evidence of filling defect to suggest pulmonary emboli. Tracheobronchial tree: Patent where visualized. Mediastinum and Celia: No dominant adenopathy or fluid collection. Pulmonary parenchyma: No consolidation or dominant measurable mass. No architectural distortion. Pleura: No effusion or pneumothorax. Heart: The heart is not dilated. Mild coronary artery calcifications are seen. Aorta: Thoracic ascending aorta measures 3.5 cm. Descending aorta measures 2.3 cm. Mild atheroscler otic changes. No evidence of dissection. Bones: Normal mild T8 compression fracture. Degenerative disc changes. Tubes, Catheters, and Lines: ABDOMEN AND PELVIS: Abdomen: Celiac axis/mesenteric arteries: No evidence of occlusion or significant stenosis. Renal Arteries: No evidence of occlusion or significant stenosis. There is a single renal artery per fusing each kidney. Aorta: Epif-xz-kyruptou atherosclerotic changes. No evidence of occlusion or significant stenosis. No aneurysm or dissection. Pelvis: Iliac Arteries: Mild atherosclerotic changes. No evidence of occlusion or significant stenosis. Common Femoral Arteries: No evidence of occlusion or significant stenosis. ABDOMEN: Liver: Normal density. No measurable mass. Portal, Superior Mesenteric, and Splenic Veins: Unremarkable. Gallbladder and Biliary Tract: Cholecystectomy. No dilation. Pancreas: Normal density, no abnormal calcifications or inflammatory process. Spleen: Normal. Adrenals: No masses seen. Kidneys: Normal size, contour and axis. No radiodense stones or obstructive uropathy. No masses seen. Bowel: No obstruction or bowel wall thickening. Moderate quantity of stool. Peritoneal Cavity: No ascites, collection or mesenteric inflammatory response. Lymph Nodes: Within normal limits. Bones: Unremarkable 4 8. Soft Tissues: Unremarkable. Bladder: Symmetric distention, no gross wall thickening. Reproductive Organs: hysterectomy. Lymph Nodes: Within normal limits. IMPRESSION: No evidence of aortic aneurysm or dissection. Atherosclerotic changes without significant luminal na rrowing. No significant narrowing of branch vessels. No acute abnormality in the chest abdomen or pelvis. RADIATION DOSE DELIVERED: Total DLP DATA REPOSITORY: All CT scans at this facility are submitted to the National Radiology Data Registry (NRDR) Dose Index Registry (DIR) with the [employer] (ACR). RADIATION OPTIMIZATION: All CT scans at this facility use at least one of these dose optimization te chniques: automated exposure control; mA and/or kV adjustment per patient size (includes targeted exa ms where dose is matched to clinical indication); or iterative reconstruction.
[2024-12-17] MEDS: Lactated Ringers 500 ML IV (11:01)
[2024-12-17 11:07] LABS: Abs Immature Grans 0.02 10^3/uL (0.0-0.06); Absolute Basophil Count 0.07 10^3/uL (0.0-0.2); Absolute Lymphocyte Count 1.79 10^3/uL (1.2-3.4); Absolute Monocyte Count 0.77 10^3/uL (0.1-0.8); Absolute Neutrophil Count 4.09 10^3/uL (1.2-6.7); HCT 43.2 % (36.0-46.0); HGB 14.5 g/dL (11.2-15.7); Immature Grans % 0.3 %; Lymphocytes % 26.6 %; MCH 29.2 pg (27.0-33.0); MCHC 33.6 % (32.0-36.0); MCV 87 fL (80-95); MPV 10.2 fL (8.0-11.0); Monocytes % 11.4 %; Neutrophils % 60.7 %; Platelet Count 248 10^3/uL (130-400); RBC 4.96 10^6/uL (3.93-5.22); WBC 6.74 10^3/uL (4.4-10.8)
[2024-12-17 11:25] LABS: ALT 22 U/L (14-59); AST 25 U/L (15-37); Albumin 4.1 g/dL (3.4-5.0); Alkaline Phosphatase 97 U/L (46-116); Anion Gap 8.8 mmol/L (3-11); BUN 19 mg/dL (7-18); Bilirubin, Total 0.4 mg/dL (0.2-1.0); CO2 28.2 mmol/L (21.0-32.0); CREATININE 0.9 mg/dL (0.55-1.02); Chloride 105 mmol/L (98-107); Glucose 85 mg/dL (74-106); Potassium 4.2 mmol/L (3.5-5.1); Sodium 142 mmol/L (136-145); Total Protein 8.3 g/dL (6.4-8.2); Troponin I 5 ng/L (<or=51)
--- NOTE | 2024-12-17 11:31 | W.ED.GENAD ---
Discharge Plan Disposition Patient Disposition: Home Condition: Stable Discharge Details Clinical Impression: Hypovolemia, Dizziness, Chest discomfort, Acute upper back pain Primary Care Provider: Romero Goldsmith ED Provider: Jordan Galindo Home Meds and New Rx's Prescriptions: Continued clobetasol 0.05 % cream 1 applic TP DAILY PRN (Reason: rash) Qty: 30 0RF azathioprine 50 mg tablet 50 mg PO DAILY duloxetine 60 mg capsule,delayed release(DR/EC) 60 mg PO DAILY Qty: 90 3RF pravastatin 40 mg tablet 40 mg PO DAILY Qty: 90 3RF omeprazole 40 mg capsule,delayed release(DR/EC) 40 mg PO DAILY Qty: 90 3RF doxepin 10 mg capsule 10 mg PO HS Qty: 90 3RF ropinirole 2 mg tablet 2 mg PO QHS Qty: 90 3RF Discharge Instructions Instructions: Chest Pain, Adult ED, Dehydration, Adult ED, Dizziness, Adult ED Additional Instructions: Please drink plenty of clear fluids to stay hydrated. Allow for plenty of rest. Please follow-up with your primary care physician. Return to the emergency department immediately for any worsening or new concerning symptoms. Referrals: Romero Goldsmith [Primary Care Provider] - [facility] General Mode of arrival: ambulatory. Date/Time Provider Initiated Documentation: 12/17/24 10:09. Limitations to Documentation: no limitations. Information obtained by: patient. HPI Narrative: HISTORY OF PRESENT ILLNESS The patient is a 69-year-old female with hypertension, prediabetes, and ovarian neoplasm, presenting with chest discomfort. On 12/11/2024, she had severe upper back pain with less intense chest discomfort, persisting overnight. Sitting up caused dry heaves and loss of consciousness, with dizziness and nausea. Currently, she has no upper back pain but continues to experience dizziness and jitteriness, without respiratory distress. Symptoms resemble past transient ischemic attacks, with intermittent dizziness and near-syncope, especially with head movement or position changes. She reports blurred vision, rapid dizziness onset, mild chest discomfort (3-4/10), and arm weakness, more in the right arm, affecting daily activities. She also feels leg weakness, needing support to avoid fainting. She is right-handed with historically less strength in her right arm -no acute changes. No current headaches, but had one a week ago. She has dry mouth and mild chest discomfort, attributed to muscle issues. History includes lumbar spinal stenosis and celiac disease. Recently started an anti-anxiety medication a month ago, effective until 1500 hours, prescribed by Dr. Goldsmith. She is under significant stress due to her 's cancer and recent parental loss. Related Data Home Medications ?Medication ?Instructions ?Recorded ?Confirmed clobetasol 0.05 % topical cream 1 applic topical DAILY PRN rash 01/02/22 12/17/24 #30 grams azathioprine 50 mg tablet 50 mg PO DAILY 10/11/22 12/17/24 doxepin 10 mg capsule 10 mg PO HS #90 caps 03/04/23 12/17/24 duloxetine 60 mg capsule,delayed 60 mg PO DAILY #90 caps 03/04/23 12/17/24 release omeprazole 40 mg capsule,delayed 40 mg PO DAILY #90 tab-caps 03/04/23 12/17/24 release pravastatin 40 mg tablet 40 mg PO DAILY #90 tab-caps 03/04/23 12/17/24 ropinirole 2 mg tablet 2 mg PO QHS #90 tabs 03/11/23 12/17/24 Previous Rx's ?Medication ?Instructions ?Recorded clobetasol 0.05 % topical cream 1 applic topical DAILY PRN rash 01/02/22 #30 grams doxepin 10 mg capsule 10 mg PO HS #90 caps 03/04/23 duloxetine 60 mg capsule,delayed 60 mg PO DAILY #90 caps 03/04/23 release omeprazole 40 mg capsule,delayed 40 mg PO DAILY #90 tab-caps 03/04/23 release pravastatin 40 mg tablet 40 mg PO DAILY #90 tab-caps 03/04/23 ropinirole 2 mg tablet 2 mg PO QHS #90 tabs 03/11/23 Allergies Allergy/AdvReac Type Severity Reaction Status Date / Time lisinopril AdvReac Intermediate COUGH Verified 12/17/24 10:03 morphine AdvReac Intermediate Visual Verified 12/17/24 10:03 Disturbances gabapentin AdvReac nightmares Verified 12/17/24 10:03 General Stated Complaint: GenMedical LONI: 3 Review of Systems Narrative: REVIEW OF SYSTEMS Negative for respiratory distress or headache. Exam Narrative Exam Narrative: PHYSICAL EXAM General Appearance: Normal. Vital signs: Within normal limits. HEENT: Pupils equal, round, reactive. Vision and extraocular movements intact. Respiratory: Lungs clear. Cardiovascular: Heart sounds normal, regular rate and rhythm. Radial pulses strong and equal. Back, Musculoskeletal: No back rash. Extremities: Subtle right upper extremity weakness. Strength 5/5 in lower extremities. Skin: Warm and dry, no rash. Neurological: Sensation equal intact all extremities. 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 5 out of 5 strength all other extremities. Other observations: None. Course Vital Signs Vital signs: Vital Signs Temperature 36.7 C 12/17/24 09:59 Pulse 95 H 12/17/24 09:59 Respiratory Rate 18 12/17/24 09:59 Blood Pressure 140/95 H 12/17/24 09:59 Pulse Oximetry 97 12/17/24 09:59 Temperature 36.7 C 12/17/24 10:05 Temperature Source Oral 12/17/24 10:05 Pulse 95 H 12/17/24 10:05 Respiratory Rate 18 12/17/24 10:54 Respiratory Effort Normal, Non-Labored 12/17/24 10:54 Respiratory Depth Normal 12/17/24 10:54 Respiratory Pattern Normal 12/17/24 10:54 Blood Pressure 140/95 H 12/17/24 10:05 Blood Pressure Position Sitting 12/17/24 10:05 Pulse Oximetry 97 12/17/24 10:05 Oxygen Delivery Method Room Air 12/17/24 10:05 Oxygen Flow Rate 0 12/17/24 10:05 Lab/Test Results Lab/Test Results: Laboratory Tests Range/Units 12/17/24 10:55 WBC (4.4-10.8) 10^3/uL 6.74 RBC (3.93-5.22) 10^6/uL 4.96 Hgb (11.2-15.7) g/dL 14.5 Hct (36.0-46.0) % 43.2 MCV (80-95) fL 87 MCH (27.0-33.0) pg 29.2 MCHC (32.0-36.0) % 33.6 RDW (11.7-14.6) % 13.0 Plt Count (130-400) 10^3/uL 248 MPV (8.0-11.0) fL 10.2 Immature Gran % % 0.3 Neutrophils % % 60.7 Lymphocytes % % 26.6 Monocytes % % 11.4 Eosinophils % % 0.0 Basophils % % 1.0 Nucleated RBC % (0.0-0.3) % 0.0 Absolute Neutrophils (1.2-6.7) 10^3/uL 4.09 Absolute Lymphocytes (1.2-3.4) 10^3/uL 1.79 Absolute Monocytes (0.1-0.8) 10^3/uL 0.77 Absolute Eosinophils (0.0-0.7) 10^3/uL 0.00 Absolute Basophils (0.0-0.2) 10^3/uL 0.07 Sodium (136-145) mmol/L 142 Potassium (3.5-5.1) mmol/L 4.2 Chloride (98-107) mmol/L 105 Carbon Dioxide (21.0-32.0) mmol/L 28.2 Anion Gap (3-11) mmol/L 8.8 BUN (7-18) mg/dL 19 H Creatinine (0.55-1.02) mg/dL 0.9 Est GFR (CKD-EPI 2020) (mL/min/1.73m2) 69.20 Glucose (74-106) mg/dL 85 Calcium (8.5-10.1) mg/dL 9.0 Total Bilirubin (0.2-1.0) mg/dL 0.4 AST (15-37) U/L 25 ALT (14-59) U/L 22 Alkaline Phosphatase (46-116) U/L 97 Troponin I (<or=51) ng/L 5 Total Protein (6.4-8.2) g/dL 8.3 H Albumin (3.4-5.0) g/dL 4.1 Medical Decision Making ASSESSMENT AND PLAN Initial Assessment: 69-year-old female with chest discomfort and dizziness, history of hypertension, prediabetes, and ovarian neoplasm. Differential Diagnosis: - Aortic dissection: Ruled out with CTA of chest, abdomen, and pelvis. No evidence of aneurysm or dissection. Atherosclerotic changes without significant narrowing. - Myocardial infarction: Ruled out with EKG and troponin levels. EKG normal. Initial and delta troponin negative. - Severe back spasm: Considered due to severe pain in the upper back radiating to the chest. -Dizziness. Hypovolemia. ED Course: - CTA of chest, abdomen, and pelvis: No evidence of aortic aneurysm or dissection. Atherosclerotic changes without significant narrowing. No acute abnormality in the chest, abdomen, or pelvis. - Diagnostic labs: No leukocytosis. No anemia. Initial and delta troponin negative. - EKG: Normal. - Administered 500 mL lactated Ringer's IV fluid bolus. - Observation in ED for several hours. - Patient was reassessed and significant improvement after IV fluids. Ambulating without dysfunction. -All results were reviewed. Discussed need to maintain adequate hydration. Patient does now note she has not been drinking adequate amounts of fluid over the past couple days. Final Assessment: Patient presented with chest discomfort and dizziness. Aortic dissection and myocardial infarction were ruled out with CTA and labs. No acute abnormalities found. Administered IV fluids and observed in ED. Clinical Impression: - Chest discomfort - Anxiety - Dizziness - Hypovolemia Disposition: - Discharge - Follow-Up: Manage anxiety effectively, considering significant stress from 's cancer and parental loss. MDM Components Evaluation: - Number of Differential Diagnoses or Management Options: Aortic dissection, myocardial infarction, severe back spasm. - Amount and Complexity of Data Reviewed: CTA of chest, abdomen, and pelvis, diagnostic labs, EKG. - Risk of Complication and Morbidity or Mortality: Low, as acute life-threatening conditions were ruled out. This document was written with the assistance of REYNALDO Primadeskross. The patient consented to its use. Lab Data Lab results reviewed: Yes I reviewed the patient's lab results. Labs: Laboratory Tests Range/Units 12/17/24 12/17/24 10:55 11:40 WBC (4.4-10.8) 10^3/uL 6.74 RBC (3.93-5.22) 10^6/uL 4.96 Hgb (11.2-15.7) g/dL 14.5 Hct (36.0-46.0) % 43.2 MCV (80-95) fL 87 MCH (27.0-33.0) pg 29.2 MCHC (32.0-36.0) % 33.6 RDW (11.7-14.6) % 13.0 Plt Count (130-400) 10^3/uL 248 MPV (8.0-11.0) fL 10.2 Immature Gran % % 0.3 Neutrophils % % 60.7 Lymphocytes % % 26.6 Monocytes % % 11.4 Eosinophils % % 0.0 Basophils % % 1.0 Nucleated RBC % (0.0-0.3) % 0.0 Absolute Neutrophils (1.2-6.7) 10^3/uL 4.09 Absolute Lymphocytes (1.2-3.4) 10^3/uL 1.79 Absolute Monocytes (0.1-0.8) 10^3/uL 0.77 Absolute Eosinophils (0.0-0.7) 10^3/uL 0.00 Absolute Basophils (0.0-0.2) 10^3/uL 0.07 Sodium (136-145) mmol/L 142 Potassium (3.5-5.1) mmol/L 4.2 Chloride (98-107) mmol/L 105 Carbon Dioxide (21.0-32.0) mmol/L 28.2 Anion Gap (3-11) mmol/L 8.8 BUN (7-18) mg/dL 19 H Creatinine (0.55-1.02) mg/dL 0.9 Est GFR (CKD-EPI 2020) (mL/min/1.73m2) 69.20 Glucose (74-106) mg/dL 85 Calcium (8.5-10.1) mg/dL 9.0 Total Bilirubin (0.2-1.0) mg/dL 0.4 AST (15-37) U/L 25 ALT (14-59) U/L 22 Alkaline Phosphatase (46-116) U/L 97 Troponin I (<or=51) ng/L 5 5 Total Protein (6.4-8.2) g/dL 8.3 H Albumin (3.4-5.0) g/dL 4.1 Quality:[facility] Health Related Social Needs: No Data to Display PFSH All Active Problems (Updated 12/17/24 @ 12:59 by Jordan Galindo MD) Acute upper back pain (Acute) Chest discomfort (Acute) Dizziness (Acute) Hypovolemia (Acute) Internal derangement of left knee (Acute) Steroid injection: 09/28/2024 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 Followed by [facility] Fatty liver disease, nonalcoholic (Chronic) Obstructive sleep apnea syndrome (Chronic) History of ovarian cancer (Chronic) Hyperlipidemia (Chronic) Depressive disorder (Chronic) Gastroesophageal reflux disease (Chronic) Celiac disease (Chronic) Constipation by delayed colonic transit (Chronic) Osteoarthritis (Chronic) Primary fibromyalgia syndrome (Chronic) Osteopenia (Chronic) Lichen sclerosus of vulva (Chronic) Restless leg syndrome (Chronic) Insomnia (Chronic) Sensorineural hearing loss (SNHL) of both ears (Chronic) Medical History Basal cell carcinoma (BCC) of left confucianism region Prediabetes Essential hypertension Tubular adenoma of colon 2016 Primary malignant neoplasm of ovary Found on pathology from [facility], oophrectomy done for AUB Surgical History S/P colonoscopy History of esophagogastroduodenoscopy (EGD) S/P cervical discectomy S/P cholecystectomy History of carpal tunnel surgery Bilateral S/P tubal ligation (~2001) S/P bilateral oophorectomy (~2005) S/P abdominal hysterectomy (~2005) S/P arthroscopy of right shoulder Hx of cataract surgery Status post right partial knee replacement (~2003) Family History Mother , 90 Colon cancer Diabetes Heart disease Father Colon cancer Diabetes Alzheimer's dementia Sister No problems noted. Sister Breast cancer Pancreatic cancer Sister Hypertension Sister Essential thrombocytosis Daughter Endometriosis Maternal Grandfather Cancer Unknown type Maternal Grandmother Cancer Unknown type Paternal Grandfather Cancer Unknown type Paternal Grandmother Leukemia Social History Smoking/Tobacco Use Status: Never Smoking risk assessment performed?: Yes Alcohol Intake: never Drug use: Never Substance use type: does not use Caregiver/Support person: No Household members: significant other Housing: house Communication Needs: Hard of Hearing Pets and animals: Yes Pets and animals: dog(s) Sexually active: No Do you think of yourself as: straight/heterosexual Current gender identity: female What is your relationship status?: living with partner How often do you talk on the phone with friends or family?: never How often do you get together with friends or relatives?: twice per week How often do you attend amish or anabaptism services?: decline to answer Panel score (0-1 are the most socially isolated patients): 1 NHANES result reviewed/action taken: No Duration: 15-30 minutes/day Frequency: 5-6 times per week Suni/Mosque: No preference Seatbelt use: always Do you feel safe at home: Yes Do you feel safe in your relationship?: Yes History History 3 Para 1 Hx # Term Pregnancies Multiple births Hx # Pregnancies Ectopic pregnancies AB induced Hx Number of Living Children 1 AB spontaneous 2
[2024-12-17] MEDS: Omnipaque 350 MG/ML 100 ML BTL IJ (11:42)
[2024-12-17] MEDS: Omnipaque 350 MG/ML 50 ML BTL IJ (11:43)
[2024-12-17] MEDS: Normal Saline - Diluent 50 ML VIAL IJ (11:44)
[2024-12-17 12:04] LABS: Troponin I 5 ng/L (<or=51)
== END 2024-12-17 13:27 | disposition home or self-care (01) ==
PROVIDERS: Emergency Provider Student in an Organized Health Care Education/Training Program; PCP Physician Assistant
DX: E86.1 Hypovolemia (principal); R42 Dizziness and giddiness; M54.6 Pain in thoracic spine
CPT/HCPCS: 36415; 71275; 80053; 93005; 96360; 96361; 99285; 74174; 84484; 85025; 93010; J3490; Q9967

== ENCOUNTER 2024-12-21 14:58 | Outpatient (REF) | payer MEDICARE, OTHER, MEDICAID, SELFPAY ==
[2024-12-21 16:29] LABS: Calculated LDL 112 mg/dL (<100); Cholesterol 221 mg/dL (<200); HDL Cholesterol 67 mg/dL (>or=50); TSH 2.31 uIU/mL (0.36-3.74); Triglyceride 213 mg/dL (<150)
[2024-12-21 22:30] LABS: T4, Free 0.8 ng/dL (0.8-2.2)
== END 2024-12-21 14:59 | disposition home or self-care (01) ==
LOC: NCHCN 14:58
PROVIDERS: PCP Physician Assistant; Visit Provider Physician Assistant
DX: Z00.00 Encounter for general adult medical examination without abnormal findings (principal); E78.5 Hyperlipidemia, unspecified
CPT/HCPCS: 80061; 84439; 84443

== ENCOUNTER 2025-02-24 00:29 | Outpatient (CLI) | payer MEDICARE, OTHER, SELFPAY ==
--- NOTE | 2025-02-24 08:15 | DI.MRI_ITS ---
Exam(s) MR LUMBAR SPINE WO EXAM: MR LUMBAR SPINE WO CLINICAL HISTORY: Dorsalgia, unspecified, M54.9; chronic back pain; rt-sided sciatica not. TECHNIQUE: Multiplanar multisequence MRI of the Lumbar spine was performed. COMPARISON: CR XR DEXA BONE DENSITY W/WO JOAN from 07/09/2024 FINDINGS: Bones: The last intervertebral disc space is designated the L5/S1 level for the numbering purpose of this ex amination. The vertebral body heights are well maintained. Alignment: Unremarkable. The marrow signal characteristics are unremarkable. Cord: The conus tip ends at the T12 level. It is of normal size and signal intensity. T12-L1: Normal disc height. No focal disc herniation is present. No central spinal canal stenosis.N o neural foraminal stenosis. L1-2:Normal disc height. No focal disc herniation is present. No central spinal canal stenosis.No n eural foraminal stenosis. L2-3:Normal disc height. No focal disc herniation is present. No central spinal canal stenosis.No neural foraminal stenosis. L3-4: Normal disc height. Mild concentric disc bulging and small endplate osteophytes. Facet degene rative changes and ligamentous hypertrophy combine to produce moderate to severe central canal stenos is as well as [id number] bilateral neural foraminal narrowing. No focal disc herniation is pre sent. L4-5: Normal disc height. Broad-based disc bulging. Prominent facet degenerative changes and ligam entous hypertrophy combine to produce severe central canal stenosis. There are also small bilateral facet joint cysts projecting into the central canal. There is moderate to severe neural foraminal na rrowing. No focal disc herniation is present. L5-S1: Normal disc height.No focal disc herniation is present. No central spinal canal stenosis.No neural foraminal stenosis. The visualized SI joints and sacrum are unremarkable. Soft tissues: The paraspinal soft tissues are unremarkable. IMPRESSION: Degenerative disc changes and facet degenerative changes combine to produce moderate to severe centra l canal stenosis at L3-4 and severe central canal stenosis at L4-5. There is also bilateral neural f oraminal narrowing at these levels.. No focal disc herniation. DATA REPOSITORY:
== END 2025-02-24 00:49 ==
PROVIDERS: PCP Physician Assistant; Visit Provider Physician Assistant
DX: M48.07 Spinal stenosis, lumbosacral region (principal)
CPT/HCPCS: 72148

== ENCOUNTER 2025-05-05 01:35 | Outpatient (CLI) | payer MEDICARE, SELFPAY ==
--- NOTE | 2025-05-05 | DI.MAMMO_ITS ---
Exam(s) MAMMO SCREENING EXAM: MAMMO SCREENING CLINICAL HISTORY: Screening, Z12.31 TECHNIQUE: Bilateral full field digital CC and MLO mammographic images were obtained with 3D tomosynthesis and utilizing computer aided detection (CAD). COMPARISON: Comparison is made with prior examinations. FINDINGS: Masses/Architectural Distortion: No suspicious masses or areas of architectural distortion are present. Microcalcifications: No suspicious pleomorphic-type are seen. Skin Thickening/Nipple Retraction: None. IMPRESSION: 1. No significant interval change with no specific features of malignancy noted. 2. Unless there is more urgent need, screening mammography is recommended, as per [employer] guidelines. BI-RADS Category 1 - Negative Breast Density - Category A - The breast are almost entirely fatty. Breast density Category C or D implies that the patient has dense breast tissue. Dense breast tissue can make it harder to find cancer on a mammogram. Dense breast tissue is also associated with an increased risk of breast cancer. This information about the result of the mammogram report was provided to the patient to raise their awareness. Use this report when you speak with the patient about their risks for breast cancer, which includes their family history. At that time, you may recommend additional screening tests (Ultrasound or MRI) as these tests may add significant information. A negative radiographic report should not delay biopsy if a dominant or clinically suspicious mass is present. Up to ten percent of cancers are not identified on mammography. A negative report may reinforce clinical impression. Adenosis and dense breasts may obscure an underlying neoplasm. False positive reports average 6 to 10%. Patient will receive a letter notifying them of these results.
== END 2025-05-05 01:55 ==
LOC: DI 01:36
PROVIDERS: PCP Physician Assistant; Visit Provider Physician Assistant
DX: Z12.31 Encounter for screening mammogram for malignant neoplasm of breast (principal); R92.313 Mammographic fatty tissue density, bilateral breasts
CPT/HCPCS: 77063; 77067

== ENCOUNTER 2025-06-28 08:07 | Outpatient (CLI) | payer MEDICARE, OTHER, SELFPAY ==
--- NOTE | 2025-06-28 06:00 | DI.RAD_ITS ---
Exam(s) XR PAIN CLINIC LUMBAR SP 2V EXAM: XR PAIN CLINIC LUMBAR SP 2V CLINICAL HISTORY: Dx: Lumbar Spondylosis. TECHNIQUE: Fluoroscopy was provided for the referring physician for guidance with performing pain clinic injection procedure. COMPARISON: No exams were available for comparison FINDINGS: Please see procedure note for details. Fluoro time: 26.1 seconds RADIATION DOSE DELIVERED: ryanne Mckeon=11.43 mGy
[2025-06-28 08:11] VITALS: BP 122/73; PULSE 90; RESP 18; TEMP 36.3; O2SAT 94
--- NOTE | 2025-06-28 08:54 | PDOC.PAIN ---
Date of service: 06/28/25 Time of Service: 09: Pain Managment Procedure Note Procedure Note Procedure Note: Lumbar Medial Branch Block ? Location: Bilateral Medial Branches ? Levels: L3,4,5? (L4-5, L5-S1 FACET) ? Pre-procedure Diagnosis: M47.817 Spondylosis without myelopathy or radiculopathy, lumbosacral region M47.816 Spondylosis without myelopathy or radiculopathy, lumbar region ? Post-procedure Diagnosis:? The same as above ? Sedation: NONE? Estimated blood loss:? less than 2 cc ? Surgeon:? Lemuel Morocho MD COMMENT: Patient has significant spinal stenosis at L3-4 and L4-5 with facet arthropathy from L3-S1. I have requested to do L2-L5 medial branch blocks but insurance company denied this so we will proceed with L3-L 5 ? Procedure Detail:? The procedure and potential risks were explained to the patient and informed written consent was obtained. The patient was escorted to the procedure room and placed in the prone position. Pillows were utilized for proper positioning and comfort.? Time out was performed in procedure room with nursing staff confirming the patient's identity, procedure to be performed, allergies, and any blood thinning or anti-platelet medications. The patient's lower back was prepped with chlorhexidine and draped in a sterile fashion. Sterile technique was maintained throughout the procedure.? Sterile gloves were used, a face mask was worn, and new single dose vials of all medications were used with the top being swabbed with alcohol and given time to dry prior to withdrawal of medication.? A left AND right-sided oblique fluoroscopic view was obtained, with visualization of the: ?RIGHT and LEFT L3,4 and DORSAL RAMUS L5 AT SACRAL ALA ? junction of the transverse process and superior articular process. Lidocaine 1% was used to anesthetize the skin. A 22-gauge Quincke needle was advanced along the superior margin of the transverse process and lateral to the articular process.? It was directed inferiorly and medially so that the tip struck the junction of the base of the transverse process and the superior articular process. The needle was then walked over the superior aspect of the transverse process and advanced slightly along the course of the L3,4,5 medial branch nerves. Proper placement was verified in A/P, oblique and lateral views under fluoroscopy. At this location, following negative aspiration, 0.5cc 0.5% bupivacaine was injected.? The patient tolerated the procedure well and was transported to the recovery area for observation and discharge instructions. Permanent images saved and recorded. Follow-up:? The patient will return in 2 weeks for confirmatory LMBBs if they? meet the criteria from today's procedure lasting for at least 2 hours.? COMMENT:Pain went from 6/10 to 0/10. Before the patient left patient had greater than 100% pain relief. Consider adding the L2 level. Consider epidural steroid injection if radicular pain symptoms Alcohol Coding Conscious Sedation used for procedure: No CPT Codes: LMBB (includes Fluoro) Lumbar/Sacral, 2nd lvl - [id number] ([id number] ~G) RT - RIGHT SIDE, LT - LEFT SIDE LMBB (includes Fluoro) Lumbar/Sacral, single lvl *BILATERAL* - [id number] ([id number]~G5) 50 - BILATERAL PROCEDURE Additional Codes: Date of Service (65211) Date of service: 06/28/25 Diagnoses: M47.817 Spondylosis without myelopathy or radiculopathy, lumbosacral region M47.816 Spondylosis without myelopathy or radiculopathy, lumbar region
[2025-06-28 09:05] VITALS: PULSE 97; O2SAT 95
[2025-06-28 09:10] VITALS: PULSE 82; O2SAT 94
[2025-06-28 09:20] VITALS: PULSE 86; O2SAT 94
[2025-06-28] MEDS: Nerve Block Tray 1 EACH MC (09:26)
[2025-06-28] MEDS: Bupivacaine 0.5% Pres-Free 10 ML VIAL IJ (09:36)
== END 2025-06-28 08:08 | disposition home or self-care (01) ==
LOC: PC 08:09
PROVIDERS: PCP Physician Assistant; Visit Provider Anesthesiology Pain Medicine
DX: M54.50 Low back pain, unspecified (principal); M47.817 Spondylosis without myelopathy or radiculopathy, lumbosacral region; M47.816 Spondylosis without myelopathy or radiculopathy, lumbar region
CPT/HCPCS: 64493; 64494; 72100; J0665

== ENCOUNTER 2025-07-12 10:32 | Outpatient (CLI) | payer MEDICARE, OTHER, SELFPAY ==
--- NOTE | 2025-07-12 06:00 | DI.RAD_ITS ---
Exam(s) XR PAIN CLINIC LUMBAR SP 2V EXAM: XR PAIN CLINIC LUMBAR SP 2V CLINICAL HISTORY: Dx: Lumbar Spondylosis. TECHNIQUE: Fluoroscopy was provided for the referring physician for guidance with performing pain clinic injection procedure. COMPARISON: No exams were available for comparison FINDINGS: Please see procedure note for details. Fluoro time: 14.4 seconds RADIATION DOSE DELIVERED: ryanne Mckeon=5.9 mGy
[2025-07-12 10:41] VITALS: BP 122/79; PULSE 84; RESP 18; TEMP 36.5; O2SAT 94
--- NOTE | 2025-07-12 11:05 | PDOC.PAIN ---
Date of service: 07/12/25 Time of Service: 11:25 Pain Managment Procedure Note Procedure Note Procedure Note: LUMBAR MEDIAL BRANCH BLOCK #2 Location: Bilateral Medial Branches ? Levels: L3,4,5? (L4-5, L5-S1 FACET) ? Pre-procedure Diagnosis: M47.817 Spondylosis without myelopathy or radiculopathy, lumbosacral region M47.816 Spondylosis without myelopathy or radiculopathy, lumbar region ? Post-procedure Diagnosis:? The same as above ? Sedation: NONE? Estimated blood loss:? less than 2 ml ? Surgeon:? Lemuel Morocho MD COMMENT: Patient had? GREATER THAN 80 % relief after the first medial branch block for greater than the duration of the local anesthetic.? PRE PROCEDURE PAIN SCORE: 6/10 Patient has significant spinal stenosis at L3-4 and L4-5 with facet arthropathy from L3-S1. I have requested to do L2-L5 medial branch blocks but insurance company denied this so we will proceed with L3-L 5 ? Procedure Detail:? The procedure and potential risks were explained to the patient and informed written consent was obtained. The patient was escorted to the procedure room and placed in the prone position. Pillows were utilized for proper positioning and comfort.? Time out was performed in procedure room with nursing staff confirming the patient's identity, procedure to be performed, allergies, and any blood thinning or anti-platelet medications. The patient's lower back was prepped with chlorhexidine and draped in a sterile fashion. Sterile technique was maintained throughout the procedure.? Sterile gloves were used, a face mask was worn, and new single dose vials of all medications were used with the top being swabbed with alcohol and given time to dry prior to withdrawal of medication.? A left and right-sided oblique fluoroscopic view was obtained, with visualization of the: ?RIGHT and LEFT L3,4 and DORSAL RAMUS L5 AT SACRAL ALA ? junction of the transverse process and superior articular process. Lidocaine 1% was used to anesthetize the skin. A 22-gauge Quincke needle was advanced along the superior margin of the transverse process and lateral to the articular process.? It was directed inferiorly and medially so that the tip struck the junction of the base of the transverse process and the superior articular process. The needle was then walked over the superior aspect of the transverse process and advanced slightly along the course of the L3,4,5 medial branch nerves. Proper placement was verified in A/P, oblique and lateral views under fluoroscopy. At this location, following negative aspiration, 0.5ml 2% lidocaine was injected.? The patient tolerated the procedure well and was discharged home with instructions. Permanent images saved and recorded. Follow-up:?? Will plan to proceed with lumbar medial branch RFA if the patient gets good relief from today's procedure lasting for at least 2 hours. COMMENT:Pain went from 6/10 to 0 /10. Before the patient left patient had 100% pain relief.Consider adding the L2 level. Consider epidural steroid injection if radicular pain symptoms Coding Conscious Sedation used for procedure: No CPT Codes: LMBB (includes Fluoro) Lumbar/Sacral, single lvl *BILATERAL* - [id number] ([id number]~G5) 50 - BILATERAL PROCEDURE LMBB (includes Fluoro) Lumbar/Sacral, 2nd lvl - 24307 ([id number] ~G) LT - LEFT SIDE, RT - RIGHT SIDE Additional Codes: Date of Service (50601) Date of service: 07/12/25 Diagnoses: M47.817 Spondylosis without myelopathy or radiculopathy, lumbosacral region M47.816 Spondylosis without myelopathy or radiculopathy, lumbar region
[2025-07-12 11:10] VITALS: PULSE 88; O2SAT 94
[2025-07-12 11:20] VITALS: PULSE 85; O2SAT 93
[2025-07-12] MEDS: Nerve Block Tray 1 EACH MC (11:28)
[2025-07-12] MEDS: Lidocaine 2% Pres-Free 5 ML VIAL IJ (11:28)
== END 2025-07-12 10:33 | disposition home or self-care (01) ==
LOC: PC 10:33
PROVIDERS: PCP Physician Assistant; Visit Provider Anesthesiology Pain Medicine
DX: M54.50 Low back pain, unspecified (principal); M47.816 Spondylosis without myelopathy or radiculopathy, lumbar region; M47.817 Spondylosis without myelopathy or radiculopathy, lumbosacral region
CPT/HCPCS: 64493; 64494; 72100

== ENCOUNTER 2025-07-26 12:10 | Outpatient (CLI) | payer MEDICARE, OTHER, SELFPAY ==
[2025-07-26] VITALS (9 sets, daily range): BP systolic 123–151; BP diastolic 79–88; PULSE 83–89; RESP 18; TEMP 36.6; O2SAT 92–96
--- NOTE | 2025-07-26 12:59 | PDOC.PAIN_ITS ---
Date of service: 07/26/25 Time of Service: 13:40 Pain Managment Procedure Note Procedure Note Procedure Note: Lumbar Medial Branch COOLED Radiofrequency Ablation COMMENT: Patient had greater than 80 % relief after 2 medial branch blocks . Location: Bilateral L3, and L4 medial Branches and dorsal ramus of L5 (L4-5, and L5-S1 joints) Pre-procedure Diagnosis: M47.817 Spondylosis without myelopathy or radiculopathy, lumbosacral region Post-procedure Diagnosis: The same as above Sedation: and none Estimated blood loss: less than 2 ml Surgeon: Lemuel Morocho MD Procedure Detail: The procedure and potential risks were explained to the patient and informed written consent was obtained. The patient was escorted to the procedure room and placed in the prone position. Pillows were utilized for proper positioning and comfort. Time out was performed in the procedure room with nursing staff confirming the patient's identity, procedure to be performed, allergies, and any blood thinning or anti-platelet medications. The patient's lower back was prepped with ChloraPrep and draped in a sterile fashion. Sterile technique was maintained throughout the procedure. Sterile gloves were used, a face mask was worn, and new single dose vials of all medications were used with the top being swabbed with alcohol and given time to dry prior to withdrawal of medication. A left AND right-sided oblique fluoroscopic view was obtained, with visualization of the L4 junction of the transverse process and superior articular process. 2% lidocaine was used to anesthetize the skin. With fluoroscopic guidance, an 17 gauge 4mm active tip RF cannula was advanced to the superior margin of the transverse process and lateral to the superior articular process. It was directed inferiorly and medially so that the tip struck the junction of the base of the transverse process and the superior articular process. The needle was then slightly advanced along the course of the L3 medial branch nerve. Proper placement was verified with oblique, AP, and lateral fluoroscopic views. Sensory tested with good response less than 1V. Motor testing was performed and was negative at 2V except for expected multifidus act ivation. A similar procedure was also performed at the ipsilateral L4 medial branch nerves and the dorsal ramus of L5 with negative motor testing at 2V except for expected multifidus activation. 1 ml of 2% lidocaine was injected through each needle tip to anesthetize the medial branch nerves. After waiting for the local anesthetic to take effect, each nerve was then ablated at 60 degr ees Celsius for 150 seconds. This was repeated on the opposite side at the same levels. The patient was monitored for any severe pain or radicular pain during the ablation and reported none. The patient tolerated the procedure well, and was discharged in stable condition. Permanent images were saved and recorded. PAIN: PRE PROCEDURE 04/08 POST PROCEDURE Plan: F/U PRN COMMENT: Repeat prn if 6 months relief of 50% Patient has significant spinal stenosis at L3-4 and L4-5 with facet arthropathy from L3-S1. I have requested to do L2-L5 medial branch blocks but insurance company denied this so we will proceed with L3-L5. Consider adding the L2 level. Consider epidural steroid injection if radicular pain symptoms Coding Conscious Sedation used for procedure: No CPT Codes: Single Facet Joint, Lumbar/Sacral *BILATERAL* - [id number] ([id number]~G) 50 - BILATERAL PROCEDURE Single Facet Joint, Lumbar/Sacral cool each add'l - 38932M ([id number]~G) LT - LEFT SIDE, RT - RIGHT SIDE Additional Codes: Date of Service () Diagnoses: M47.817 Spondylosis without myelopathy or radiculopathy, lumbosacral region
--- NOTE | 2025-07-26 13:40 | DI.RAD_ITS ---
Exam(s) XR PAIN CLINIC LUMBAR SP 2V EXAM: XR PAIN CLINIC LUMBAR SP 2V CLINICAL HISTORY: Dx: Lumbar Spondylosis TECHNIQUE: 2D and realtime digital imaging was performed. CONTRAST MATERIAL: Refer to procedure report. COMPARISON: No exams were available for comparison FINDINGS: Fluoroscopy was provided for Dr. Morocho during the performance of a lumbar radiofrequency ablation. Please refer to the procedure report for complete details. Ka,r=17.2 mGy IMPRESSION: RADIATION DOSE DELIVERED: 0.0 0.0 0
[2025-07-26] MEDS: Nerve Block Tray 1 EACH MC (13:48)
[2025-07-26] MEDS: Lidocaine 2% Multi-Dose 20 ML VIAL IJ (13:49)
== END 2025-07-26 12:11 | disposition home or self-care (01) ==
LOC: PC 12:11
PROVIDERS: PCP Physician Assistant; Visit Provider Anesthesiology Pain Medicine
DX: M54.50 Low back pain, unspecified (principal); M47.817 Spondylosis without myelopathy or radiculopathy, lumbosacral region
CPT/HCPCS: 64635; 64636; 72100; J2003